=== PATIENT | female | born 1950 | race Caucasian/White ===

== ENCOUNTER 2025-03-30 09:34 | Emergency (ER) | payer BC, MEDICARE, SELFPAY ==
--- NOTE | ~2025-03-30 | US_ITS ---
EXAMINATION: US ABDOMEN LIMITED CLINICAL INFORMATION: Right upper quadrant abdominal pain.. COMPARISON: Correlated to CT dated March 30, 2024. TECHNIQUE: Limited ultrasound right upper quadrant abdomen/gallbladder using grayscale and color Doppler technique. FINDINGS: Gallbladder is fluid-filled. No pericholecystic fluid collection or gallbladder wall thickening. Common bile duct measures 8 mm. No intraluminal abnormality. No gross ascites. US/US abdomen limited IMPRESSION: No cholelithiasis. No choledocholithiasis. Electronically signed by: Mariano Birch MD 03/30/2025 12:03 PM EDT
--- NOTE | ~2025-03-30 | CT_ITS ---
EXAMINATION: CT ABDOMEN AND PELVIS WITHOUT CONTRAST CLINICAL INFORMATION: Flank pain. History of kidney stones. COMPARISON: None available. TECHNIQUE: Multidetector volumetric imaging was performed from the superior aspect of the liver through the pubic symphysis. Sagittal and coronal reformatted images were obtained on the technologist's workstation. This CT examination was performed using dose optimization techniques as appropriate, variously including the following: *Automated exposure control *Adjustment of mA and/or kV according to patient size (this includes techniques or standardized protocols for targeted exams where dose is matched to indication/reason for exam; i.e. extremities or head) *Use of iterative reconstruction technique. DLP: 296 mGy centimeter. FINDINGS: Inadequate evaluation of the intra-abdominal organs and vascular structures due to lack of IV contrast. LUNG BASES: Multifocal patchy pulmonary groundglass, both lower lung lobes lingula and right middle lung lobe. LIVER, GALLBLADDER, AND BILIARY TREE: Liver measures 13 cm. No intrahepatic biliary ductal dilatation. No pericholecystic fluid collection or gallbladder wall thickening. Common bile duct measures 1 cm in maximum diameter and tapers at the junction with the second portion of the duodenum. No intraluminal calcifications. PANCREAS: No peripancreatic fluid collection. No main pancreatic ductal dilatation. SPLEEN: 9 cm. ADRENAL GLANDS: No nodular lesions. KIDNEYS AND URETERS: Multiple, less than 2 mm calcifications throughout the pelvicalyceal systems both kidneys. No hydronephrosis in either kidney. 2 cm exophytic cystic lesion lower pole left kidney. BLADDER: Fluid-filled. GASTROINTESTINAL TRACT: Appendix is retrocecal and normal. Abundant stool. No intestinal obstruction pattern. No pneumatosis intestinalis. No pneumoperitoneum. Trace amount of free fluid in the cul-de-sac. No fluid collections in the peritoneal cavity. ABDOMINAL WALL: No gross umbilical hernia. LYMPH NODES: Nonspecific mildly prominent mesenteric and retroperitoneum. VASCULAR: Calcified plaques throughout the abdominal aorta wall and iliac arteries mesenteric arteries splenic artery and the origin of the main renal arteries. PELVIC VISCERA: Inadequate evaluation. OSSEOUS STRUCTURES: Probable pectus excavatum. Mild to moderate multilevel thoracolumbar spondylosis. Status post intervertebral disc spacer at L5-S1 resulting in arthrodesis. Grade 1 anterolisthesis L3-4 on a degenerative basis. Osteopenia versus osteoporosis. Degenerative changes in the coxofemoral joints and sacroiliac joints. CT/CT abdomen pelvis wo IV con IMPRESSION: Bilateral multifocal pneumonia. Nonobstructing nephrolithiasis. Cystic lesion, left kidney. Prominent common bile duct with questionable stricture in the center of Oddi. Grade 1 anterolisthesis L3-4 on a degenerative basis. Fleischner guidelines were followed. Electronically signed by: Mariano Birch MD 03/30/2025 11:03 AM EDT
--- NOTE | ~2025-03-30 | XR_ITS ---
EXAMINATION: XR CHEST 2 VIEWS HISTORY: pna? COMPARISON: Correlation is made with the images of the lung bases from a CT of the abdomen performed earlier in the day. FINDINGS: PA and lateral views of the chest are submitted. The lungs are hyperinflated, consistent with COPD. The groundglass opacities at the lung bases noted on abdominal CT are not visible on chest x-ray. There is no pleural effusion, pneumothorax, or pulmonary vascular congestion. The heart is normal in size. There is degenerative disc disease of the spine. A fusion plate is seen in the lower cervical spine. There is a left breast prosthesis. XR/XR chest 2V IMPRESSION: COPD. The groundglass opacities at the lung bases noted on abdominal CT are not visible on chest x-ray. Electronically signed by: Blue Parson MD 03/30/2025 11:21 AM EDT
[2025-03-30 09:45] VITALS: BP 164/62; PULSE 72; RESP 15; TEMP 36.8; O2SAT 99; BMI 18.4
[2025-03-30 09:51] VITALS: BP 190/100; PULSE 90; O2SAT 99
--- NOTE | 2025-03-30 10:03 | ED.GENADULT ---
HPI - General Adult General Chief complaint: Abdominal Pain Stated complaint: LLQ PAIN X2 DAYS, H/O KIDNEY STONES & PNA PER EMS Time Seen by Provider: 03/30/25 09:49 Source: patient, EMS, RN notes reviewed and old records reviewed Mode of arrival: EMS History of Present Illness ED Provider: Otilia Liriano PA-C HPI narrative: 74 yo female with PMH kidney stones, mastectomy, c-sections, recent pneumonia finished antibiotics today, presents to the ED complaining of LLQ abdominal pain radiating to left flank x 03:00. Admits pain is constant with associated urinary hesitancy/decreased stream. Admits feels similar to her previous kidney stones. Reports associated fever T-max 101 degrees. Admits to persistent productive cough of yellow phlegm. Denies CP/SOB, hematuria, dysuria, nausea/vomiting, diarrhea Related Data Home Medications ?Medication ?Instructions ?Recorded ?Confirmed albuterol sulfate 90 mcg/actuation 2 puff inhalation Q6H PRN wheezing 03/30/25 03/30/25 aerosol inhaler carisoprodol 350 mg tablet 350 mg PO QID 03/30/25 03/30/25 cholecalciferol (vitamin D3) 50 50 mcg PO DAILY 03/30/25 03/30/25 mcg (2,000 unit) tablet cyanocobalamin (vitamin B-12) 500 500 mcg PO DAILY 03/30/25 03/30/25 mcg tablet docusate sodium 100 mg capsule 100 mg PO BID 03/30/25 03/30/25 fluticasone propionate 50 2 spray intranasal DAILY 03/30/25 03/30/25 mcg/actuation nasal spray,suspension levothyroxine 137 mcg tablet 137 mcg PO DAILY@0630 03/30/25 03/30/25 lidocaine 5 % topical patch 3 patch topical DAILY 03/30/25 03/30/25 lorazepam 0.5 mg tablet 0.5 mg PO DAILY PRN Anxiety 03/30/25 03/30/25 lorazepam 0.5 mg tablet 1.5 mg PO BEDTIME 03/30/25 03/30/25 losartan 100 mg tablet 100 mg PO DAILY 03/30/25 03/30/25 magnesium oxide (Uro-Mag) 84.5 mg PO BEDTIME 03/30/25 03/30/25 omeprazole 20 mg capsule,delayed 20 mg PO BID@0630,1630 03/30/25 03/30/25 release ondansetron 4 mg disintegrating 4 mg PO BID PRN Nausea 03/30/25 03/30/25 tablet oxycodone 10 mg tablet 10 mg PO QID 03/30/25 03/30/25 oxycodone 10 mg tablet 20 mg PO BEDTIME 03/30/25 03/30/25 simethicone 125 mg capsule 125 mg PO TID PRN GI UPSET 03/30/25 03/30/25 Previous Rx's ?Medication ?Instructions ?Recorded azithromycin 250 mg tablet See Rx Instructions PO .COMPLEX #6 03/30/25 tabs Allergies Allergy/AdvReac Type Severity Reaction Status Date / Time adhesive tape Allergy Unknown Verified 03/30/25 13:47 atenolol [From Tenormin] Allergy Unknown Verified 03/30/25 13:47 cefaclor [From Ceclor] Allergy Unknown Verified 03/30/25 13:47 Chocolate Allergy Unknown Verified 03/30/25 13:47 ciprofloxacin [From Cipro] Allergy Unknown Verified 03/30/25 09:50 colchicine Allergy Unknown Verified 03/30/25 13:47 cortisone Allergy Unknown Verified 03/30/25 13:47 dicyclomine Allergy Unknown Verified 03/30/25 13:47 gabapentin Allergy Unknown Verified 03/30/25 09:50 indomethacin Allergy Unknown Verified 03/30/25 13:47 Iodinated Contrast Media Allergy Unknown Verified 03/30/25 13:47 [Contrast Dye] latex Allergy Unknown Verified 03/30/25 13:47 levofloxacin [From Levaquin] Allergy Anaphylaxis Verified 03/30/25 10:05 lisinopril Allergy Unknown Verified 03/30/25 13:47 monosodium glutamate Allergy Unknown Verified 03/30/25 13:47 morphine Allergy Unknown Verified 03/30/25 09:50 NSAIDS (Non-Steroidal Allergy Unknown Verified 03/30/25 13:47 Anti-Inflamma penicillin G Allergy Unknown Verified 03/30/25 09:50 perfume Allergy Unknown Verified 03/30/25 13:47 povidone-iodine Allergy Unknown Verified 03/30/25 13:47 [From Betadine] propranolol Allergy Unknown Verified 03/30/25 13:47 Sulfa (Sulfonamide Allergy Unknown Verified 03/30/25 09:50 Antibiotics) tamsulosin Allergy Unknown Verified 03/30/25 13:47 tetracycline Allergy Unknown Verified 03/30/25 13:47 tramadol Allergy Unknown Verified 03/30/25 13:47 trazodone Allergy Unknown Verified 03/30/25 09:50 triamcinolone Allergy Unknown Verified 03/30/25 13:47 venom-honey bee Allergy Unknown Verified 03/30/25 13:47 fentanyl patch Allergy Unknown Uncoded 03/30/25 13:47 Review of Systems Review of Systems: Yes all other systems are reviewed and are negative Constitutional: Constitutional: Reports as per [facility] Past Medical History Attestation statement: The following information was validated with the patient. Source: old records reviewed Social History Social History Advance Directives: Yes Advance Directives Information Provided: Yes Advance Directives on File: No Physical Exam ED Vital Signs: Vital Signs - 24 hr 03/30/25 09:45 03/30/25 10:22 03/30/25 14:21 Temperature 98.2 F 98.2 F 97.8 F Pulse Rate 72 72 92 Respiratory Rate 15 15 18 Blood Pressure 164/62 H 164/62 H 154/66 H Pulse Oximetry 99 99 97 Oxygen Delivery Method Room Air Room Air Room Air 03/30/25 15:46 Temperature 98.1 F Pulse Rate 90 Respiratory Rate 14 Blood Pressure 146/67 H Pulse Oximetry 95 Oxygen Delivery Method Room Air BMI result Body Mass Index 18.4 Const General: cooperative, healthy appearing and no acute distress Orientation/consciousness: patient oriented x3 Limitations: no limitations HENMT Head: Yes normal to inspection and Yes atraumatic Ears: hearing grossly normal bilaterally General nose exam: Normal external nose present Face and sinus: Yes normal facial exam Eyes General: appearance normal, both eyes and all related structures EOM: EOMs intact bilaterally Neck Neck: Yes normal visual inspection and Yes no meningeal signs Resp Effort & Inspection: normal respiratory effort and no respiratory distress Auscultation: clear to auscultation bilaterally, no crackles, no rales, no rhonchi and no wheezes Cardio Rate: regular rate Heart sounds: S1 normal heart sound present and S2 normal heart sound present GI Inspection: Yes normal to inspection Palpation (GI): Soft to palpation, Tenderness to palpation present (GI) in the LLQ; with no rebound tenderness, no guarding and not rigid General: Yes CVA tenderness on the left Back/Spine/Pelvis Back: CVA tenderness Skin Rashes: no rashes Wounds: no wounds Neuro General: patient oriented x3, tone normal and no meningeal signs Cranial nerves: Yes CN's II-XII intact bilaterally Gait exam (Neuro): Normal gait present Extrem General: Yes normal to inspection Course Course Course Narrative: XR chest 2V IMPRESSION: COPD. The groundglass opacities at the lung bases noted on abdominal CT are not visible on chest x-ray. CT abdomen pelvis wo IV con IMPRESSION: Bilateral multifocal pneumonia. Nonobstructing nephrolithiasis. Cystic lesion, left kidney. Prominent common bile duct with questionable stricture in the center of Oddi. Grade 1 anterolisthesis L3-4 on a degenerative basis. Fleischner guidelines were followed. > on re-evaluation patient reports continued abdominal discomfort. On repeat outpatient abdomen soft with RUQ/RLQ & LLQ ttp >> will obtain US or further eval. > will obtain Blood Cx for PNA > patient will need to be started on additional abx, however will wait for full allergy list. Does not meet sepsis criteria at this time >1339--allergy list obtained, will be entered in the computer. On re-evaluation patient is still with diffuse abdominal pain. Bedside ultrasound performed without significant findings. will discuss case with hospitalist and GI. May need MRCP > discuss case with GI, Dr. Bejarano > at this time patient does not require MRCP, however LFTs become elevated then can be performed. Patient can be discharged home with outpatient follow up. -patient given an enema in the ED due to stool burden seen on CT. States had coffee ground bowel movement. Will obtain occult stool. Brown stool noted on rectal -1615--occult stool negative. Discussed with patient plan for discharge home with GI/PCP follow-up. She is in agreement with plan. > will discharge patient home with [facility] for multifocal pneumonia appreciated on CAT scan and continued productive cough. Results discussed with patient including worrisome signs and symptoms and strict return precautions, and when to return to the emergency department. They verbalized understanding and feel safe for discharge at this time. Medications Administered Discontinued Medications Generic Name Dose Route Start Last Admin Trade Name Freq PRN Reason Stop Dose Admin Fentanyl 25 mcg 03/30/25 11:49 03/30/25 11:56 Fentanyl Citrate/Pf 100 Mcg/2 Ml Vial IVPUSH 03/30/25 11:50 25 mcg ONCE ONE Administration Protocol Fentanyl 25 mcg 03/30/25 13:39 03/30/25 13:53 Fentanyl Citrate/Pf 100 Mcg/2 Ml Vial IVPUSH 03/30/25 13:40 25 mcg ONCE ONE Administration Protocol Sodium Chloride 1,000 mls @ 999 mls/hr 03/30/25 10:30 03/30/25 14:33 Ns IV 03/30/25 11:30 Infused .Q1H1M AIDA Infusion Mineral Oil 133 ml 03/30/25 13:38 03/30/25 14:11 Mineral Oil Enema 133 Ml Enema WA 03/30/25 13:39 Not Given ONCE ONE Mineral Oil 133 ml 03/30/25 14:31 03/30/25 15:02 Mineral Oil Enema 133 Ml Enema [place] 03/30/25 14:32 133 ml ONCE ONE Administration Medical Decision Making Medical Decision Making MDM Narrative: 74 yo female with PMH kidney stones, mastectomy, c-sections, recent pneumonia finished antibiotics today, presents to the ED complaining of LLQ abdominal pain radiating to left flank x 03:00. Admits to persistent productive cough of yellow phlegm. On exam vital signs stable, NAD, nontoxic appearing, appears uncomfortable, abdomen soft with LLQ & left CVA tenderness, no rebound or guarding, lungs CTA. Concern for renal stone vs pyelo vs UTI. Concern for persistent pneumonia vs bronchitis. Diverticulitis and appendicitis on differential. Lower suspicion for acute cholecystitis/lithiasis or pancreatitis at this time. Unlikely ACS/PE Plan: Labs, UA, CT AP, pain management, re-evaluate * of note patient with multiple allergies, all unknown to patient, full list at PCPs office. Will contact PCP* Please refer to course for remaining clinical decision making, interpretation of labs/imaging results, and discussions with consultants and/or family members. Differential Diagnosis Differential Diagnoses: The differential diagnosis associated with the presentation includes Admission/Observation Consideration of admission/observation: Escalation of care including admission/observation considered Lab Data [facility] Lab Attestation statement: I reviewed the patient's lab results. 03/30/25 11:42 03/30/25 11:42 Labs: Lab Results 03/30/25 03/30/25 Range/Units 11:42 16:05 WBC 5.3 (4.8-10.8) X10*3/uL RBC 4.56 (4.20-5.50) X10*6/uL Hgb 14.8 (12.0-16.0) g/dl Hct 42.9 (37.0-47.0) % MCV 94.1 (80.0-98.0) fL MCH 32.5 (27.0-33.0) pg MCHC 34.5 (31.0-35.0) g/dl RDW 11.3 (11.0-16.0) % Plt Count 335 (160-400) X10*3/uL MPV 8.7 L (9.4-12.3) fL Immature Gran % (Auto) 0.4 (0.0-0.4) % Neut % (Auto) 79.5 H (45-73) % Lymph % (Auto) 14.7 L (20-40) % Rains % (Auto) 4.2 (2-11) % Eos % (Auto) 0.6 (0-4) % Baso % (Auto) 0.6 (0-2) % Lymph # (Auto) 0.8 L (1.2-4.9) X10*3/uL Rains # (Auto) 0.2 (0.1-1.2) X10*3/uL Eos # (Auto) 0.0 (0.0-0.4) X10*3/uL Baso # (Auto) 0.0 (0.0-0.2) X10*3/uL Abs Immat Gran (auto) 0.02 (0.00-0.03) X10*3/uL Absolute Neuts (auto) 4.2 (2.0-8.3) x10*3/uL Absolute Nucleated RBC 0.000 (0.0-0.012) X10*3/uL Nucleated RBC % (auto) 0.0 (0.0-0.2) /100WBC Sodium 143 (135-145) mmol/L Potassium 3.8 (3.3-5.1) mmol/L Chloride 106 (96-108) mmol/L Carbon Dioxide 26 (22-29) mmol/L Anion Gap 15 (12-20) BUN 22 H (9-16) mg/dL Creatinine 0.81 (0.5-1.4) mg/dL Estim Creat Clear Calc 49.7 Estimated GFR > 60 Random Glucose 94 (60-115) mg/dL Calcium 9.6 (8.4-10.2) mg/dL Magnesium 2.1 (1.6-2.6) mg/dL Total Bilirubin 0.7 (0.0-1.0) mg/dL Direct Bilirubin 0.2 (0.0-0.5) mg/dL AST 43 H (5-31) U/L ALT 21 (0-31) U/L Total Protein 7.3 (6.5-8.0) g/dL Albumin 4.2 (3.5-5.0) g/dL Lipase 44 (8-78) U/L Urine Color Yellow Urine Appearance Clear Urine pH >= 9.0 (5.0-9.0) Ur Specific [place] 1.015 (1.005-1.025) Urine Protein 30 (1+) H (Neg-Trace) mg/dL Urine Glucose (UA) Negative (Negative) mg/dL Urine Ketones 40 (Negative) mg/dL Urine Blood Negative (Negative) Urine Nitrite Negative (Negative) Ur Leukocyte Esterase Negative (Negative) Urine RBC 0-2 (0-2) /HPF Urine WBC 0-5 (0-5) /HPF Ur Squamous Epith Cells 0-2 (0-2) /HPF Urine Bacteria None Seen (None Seen) Hyaline Casts 0-2 (0-2) /LPF Stool Occult Blood NEGATIVE (NEGATIVE) Influenza Type A (PCR) NEGATIVE (Negative) Influenza Type B (PCR) NEGATIVE (Negative) RSV RNA Qual (PCR) NEGATIVE (Negative) SARS-CoV-2 RNA (RT-PCR) NEGATIVE (Negative) Independent Interpretation I performed an independent interpretation of an: Plain X-Ray and CT Scan Radiology Impression Discussion of test interpretation with radiology: I have reviewed the radiologist's reading. External Record Review External record reviewed: Inpatient record, Office record, Outpatient record, Prior outpatient labs, Prior outpatient radiology, Primary care record and Outside ED record Tests considered The following testing was considered but not selected: As above Prescription Management I considered prescription management with: Pain Medication and Antibiotic Chronic Conditions Patient?s care impacted by: Other Social Determinants Patient?s care significantly limited by Social Determinants of Health including: Other Social Determinant of Health Discharge Plan Discharge Clinical Impression: Abdominal pain, Common bile duct dilatation, Pneumonia Patient Disposition: Home, Self-Care Instructions: Abdominal Pain (ED), Pneumonia (ED) Additional Instructions: Your blood work is reassuring. Your urine shows small evidence of dehydration. Make sure you are staying hydrated at home. Your CAT scan is showing multifocal pneumonia. Due to your continued productive cough azithromycin as an antibiotic please take as prescribed Your common bile duct is also prominent. You need to follow-up outpatient with Gastroenterology. Call to make an appointment If her symptoms persist or worsen, pain becomes constant/unbearable, you have fever, you are unable to eat or drink return to the ED Prescriptions: New azithromycin 250 mg tablet See Rx Instructions .ROUTE .COMPLEX Qty: 6 0RF Rx Instructions: take 500 mg today (day 1), then 250 mg for 4 days (days 2-5) No Action carisoprodol 350 mg tablet 350 mg PO QID levothyroxine 137 mcg tablet 137 mcg PO DAILY@0630 simethicone 125 mg Capsule 125 mg PO TID PRN (Reason: GI UPSET) lorazepam 0.5 mg tablet 0.5 mg PO DAILY PRN (Reason: Anxiety) lorazepam 0.5 mg tablet 1.5 mg PO BEDTIME cyanocobalamin (vitamin B-12) 500 mcg Tablet 500 mcg PO DAILY lidocaine 5 % adhesive patch,medicated 3 patch topical DAILY docusate sodium 100 mg Capsule 100 mg PO BID omeprazole 20 mg capsule,delayed release(DR/EC) 20 mg PO BID@0630,1630 albuterol sulfate 90 mcg/actuation HFA aerosol inhaler 2 puff inhalation Q6H PRN (Reason: wheezing) ondansetron 4 mg tablet,disintegrating 4 mg PO BID PRN (Reason: Nausea) losartan 100 mg tablet 100 mg PO DAILY fluticasone propionate 50 mcg/actuation spray,suspension 2 spray intranasal DAILY oxycodone 10 mg tablet 10 mg PO QID oxycodone 10 mg tablet 20 mg PO BEDTIME Uro-Mag 84.5 mg mag (140 mg) Capsule 84.5 mg PO BEDTIME cholecalciferol (vitamin D3) 50 mcg (2,000 unit) Tablet 50 mcg PO DAILY Referrals: [facility] [place] Gastroenterology Services [Provider Group] - 1 week Sergey Tyson MD [Primary Care Provider] - 3 days Print Language: [place]
[2025-03-30 10:22] VITALS: BP 164/62; PULSE 72; RESP 15; TEMP 36.8; O2SAT 99
[2025-03-30] MEDS: 0.9 % Sodium Chloride 1,000 ML 999 ML IV (11:26)
[2025-03-30 11:48] LABS: MANUAL DIFF FLAG NO
[2025-03-30 11:50] LABS: Basophils Percent Auto 0.6 % (0-2); Eosinophils Percent Auto 0.6 % (0-4); Hematocrit 42.9 % (37.0-47.0); Hemoglobin 14.8 g/dl (12.0-16.0); Imm Gran Abs Auto 0.02 X10*3/uL (0.00-0.03); Imm Gran Pct Auto 0.4 % (0.0-0.4); Lymphocytes Absolute Auto 0.8 X10*3/uL (1.2-4.9); Lymphocytes Percent Auto 14.7 % (20-40); Mean Corpuscular HGB Conc 34.5 g/dl (31.0-35.0); Mean Corpuscular Hemoglobin 32.5 pg (27.0-33.0); Mean Corpuscular Volume 94.1 fL (80.0-98.0); Mean Platelet Volume 8.7 fL (9.4-12.3); Monocytes Absolute Auto 0.2 X10*3/uL (0.1-1.2); Monocytes Percent Auto 4.2 % (2-11); Neutrophils Absolute Auto 4.2 x10*3/uL (2.0-8.3); Neutrophils Percent Auto 79.5 % (45-73); Platelet Count 335 X10*3/uL (160-400); Red Blood Count 4.56 X10*6/uL (4.20-5.50); Red Cell Distribution Width 11.3 % (11.0-16.0); White Blood Count 5.3 X10*3/uL (4.8-10.8)
[2025-03-30 11:54] LABS: Appearance Urine Clear; Color Urine Yellow; Glucose Urine UA Negative (Negative); Leukocyte Esterase Urine Negative (Negative); Nitrite Urine Negative (Negative); PH >= 9.0 (5.0-9.0); Specific Gravity - Urine 1.015 (1.005-1.025); UMIC TRIGGER UACC YES; Urine Blood Negative (Negative); Urine Ketones 40 mg/dL (Negative); Urine Protein 30 (1+) mg/dL (Neg-Trace)
[2025-03-30] MEDS: fentaNYL citrate/PF 100 MCG/2 ML VIAL 25 MCG IVPUSH ×2 (11:56→13:53)
[2025-03-30 12:01] LABS: Bacteria Urine None Seen (None Seen); Hyaline Casts Urine 0-2 /LPF (0-2); RBC Urine 0-2 /HPF (0-2); Squamous Epithelial Cell Urine 0-2 /HPF (0-2); WBC Urine 0-5 /HPF (0-5)
--- NOTE | 2025-03-30 12:13 | PC.NURSE ---
patient reports having extensive allergy list, called dr grace patient's primary care. awaiting fax with allergy list.
[2025-03-30 12:22] LABS: Alanine Aminotransferase 21 U/L (0-31); Albumin Level 4.2 g/dL (3.5-5.0); Anion Gap 15 (12-20); Aspartate Amino Transferase 43 U/L (5-31); Bilirubin Direct 0.2 mg/dL (0.0-0.5); Bilirubin Total 0.7 mg/dL (0.0-1.0); Blood Urea Nitrogen 22 mg/dL (9-16); Calcium 9.6 mg/dL (8.4-10.2); Carbon Dioxide 26 mmol/L (22-29); Chloride 106 mmol/L (96-108); Creatinine Clr Calc Pharmacy 49.7; Estimated Glomerular Filt Rate > 60; Glucose Random 94 mg/dL (60-115); Lipase 44 U/L (8-78); Magnesium 2.1 mg/dL (1.6-2.6); Potassium 3.8 mmol/L (3.3-5.1); Sodium 143 mmol/L (135-145); Total Protein 7.3 g/dL (6.5-8.0)
[2025-03-30 12:26] LABS: Influenza A PCR NEGATIVE (Negative); Influenza B PCR NEGATIVE (Negative); Resp Syncy Virus RNA Qual PCR NEGATIVE (Negative); SARS COV2 PCR INHOUSE NEGATIVE (Negative)
--- OUTSIDE RECORDS SUMMARY | 2025-03-30 13:00 | XMS_ITS | Encounter Summary ---
Author Organization [facility] Address [address] [place] [address] [address] [place] [address] Phone Care Team Providers Care Detail Manager Name Role Phone Karlos Lyons MD Primary Care Provider Karlos Lyons MD Unavailable [phone] Omar Rocha MD Unavailable [phone] Sagar Leung MD Unavailable Karlos Lyons MD Primary Care Provider [phone] Yefri Hilliard MD Unavailable [phone] Karlos Murry MD Unavailable [phone] Sergey Tyson MD Primary Care Provider Apple Talavera MD Unavailable [phone] Sergey Tyson MD Unavailable Mena Mcwilliams RN Unavailable [phone] Reason for Referral * MRI/CAT Scan - Closed Specialty Diagnoses / Procedures Referred By Jessica balbuena Referred To Contact Radiology Diagnoses Lumbar radiculopathy 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 Procedures MRI Lumbar Spine Omar Rocha MD [address] [place] [address] Email: [email or web address] Referral ID Status Reason Start Date Expiration Date Visits Re quested Visits Authorized [id number] Closed 10/07/2019 10/06/2020 1 1 Encounter Details Date Type Department Care Team (Latest Contact Info) Description 10/07/2019 Ancillary Orders Virtual Department [address] [place] [address] Omar Rocha MD [address] [place] [address] [email or web address] Lumbar radiculopathy; 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 Social History Tobacco Use Types Packs/Day Years Used Date Smoking Tobacco: Former Cigarettes Smokeless Tobacco: Never Comments:quit 1971 Alcohol Use Standard Drinks/Week Comments No 0 (1 standard drink = 0.6 oz pur e alcohol) Sex and Gender Information Value Date Recorded Sex Assigned at Female 05/05/2021 9:10 PM EDT Gender Identity Female 03/19/2021 10:12 AM EDT Sexual Orientation Straight 05/05/2021 9: 10 PM EDT documented as of this encounter Plan of Treatment Upcoming Encounters Date Type Department Care Team (Late st Contact Info) Description 03/18/2024 Procedure Pass [address] [address] 04/13/2025 9:00 AM EDT Appointment [facility] [place] Internal Medicine [address] [place] [address] Sergey Tyson MD [address] [place] [address] 04/21/2025 3:00 PM EDT Appointment [address] [address] Apple Talavera MD [address] [place] [email or web address] 04/27/2025 8:30 AM EDT Office Visit [facility] [place] [address] [place] [address] Apple Talavera MD [address] [place] [address] [email or web address] documented as of this encounter Results * MRI LUMBAR SPINE (BONE) WITHOUT CONTRAST (10/10/2019 1:37 PM EST) Anatomical Region Laterality Modality L-spine Magnetic Resonan ce 10/10/2019 8:22 PM EST Impressions 10/10/2019 8:36 PM EST Multilevel degenerative changes as described above, progressed from 2009 study. Moderate canal stenosis at L3-L4. Moderate neuroforaminal stenosis on the left at L4-L5 associated with mild compression of the left L4 exiting nerve root. POS - [id number] Narrative 10/10/2019 8:36 PM EST EXAM: ?? 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 ??Magnetic resonance imaging of the lumbar spine was performed WITHOUT injected contrast using standard department protocols. Sagittal T1, T2 and STIR, axial T1 and T2 sequences were obtained. FINDINGS: Gradient artifacts from the fusion hardware at L5-S1 limits local evaluation. ALIGNMENT: Anatomic alignment is maintained. Minimal grade 1 anterolisthesis of L3 on L4. VERTEBRAL BODIES: ??Vertebral body heights are maintained. ??Bone marrow signal pattern is within normal limits. ?? INTERVERTEBRAL DISCS: Mild desiccation changes and minimal loss of height of the L3-L4 and L4-L5 discs. SPINAL CORD/CONUS: ??Included spinal cord has normal caliber and signal characteristics. The conus terminates normally at L1 level. Level by level analysis yields the following: L1-2: Minimal bulging disc. No significant canal or neuroforaminal stenosis. L2-3: Mild bulging disc and hypertrophy of posterior elements contributes to mild/moderate canal stenosis and minimal bilateral neuroforaminal stenosis. L3-4: Combination of anterolisthesis of L3 on L4, bulging disc and hypertrophy of posterior elements contributes to moderate canal stenosis. No significant neuroforaminal stenosis. L4-5: Combination of bulging disc, left central disc protrusion and hypertrophy of posterior elements contributes to mild/moderate canal stenosis and moderate left neuroforaminal stenosis with ??mild compression of the left L4 exiting nerve root. No significant right neural foraminal stenosis. L5-S1: No significant canal or neuroforaminal stenosis identified Multilevel degenerative changes have progressed from 2009 study. Small perineural cysts at multiple levels. OTHERS:Visualized portions of the retroperitoneal structures shows partially evaluated left renal lesions that appear similar in size from 2009. Posterior paraspinal soft tissues are unremarkable. Procedure Note Jade Mckeon MD - 10/10/2019 EXAM: MRI LUMBAR SPINE (BONE) WITHOUT CONTRAST COMPARISON: July 06, 2009 HISTORY: Lumbar radiculopathy Displacement of intervertebral disc oflumbar region TECHNIQUE: Exam performed on a 1.5 Jo high-field MRI scanner. Magneticresonance imaging of the lumbar spine was performed WITHOUT injectedcontrast using standard department protocols. Sagittal T1, T2 and STIR,axial T1 and T2 sequences were obtained. FINDINGS: Gradient artifacts from the fusion hardware at L5-S1 limits localevaluation. ALIGNMENT: Anatomic alignment is maintained. Minimal grade 1anterolisthesis of L3 on L4. VERTEBRAL BODIES: Vertebral body heights are maintained. Bone marrowsignal pattern is within normal limits. INTERVERTEBRAL DISCS: Mild desiccation changes and minimal loss of heightof the L3-L4 and L4-L5 discs. SPINAL CORD/CONUS: Included spinal cord has normal caliber and signalcharacteristics. The conus terminates normally at L1 level. Level by level analysis yields the following: L1-2: Minimal bulging disc. No significant canal or neuroforaminalstenosis. L2-3: Mild bulging disc and hypertrophy of posterior elements contributesto mild/moderate canal stenosis and minimal bilateral neuroforaminalstenosis. L3-4: Combination of anterolisthesis of L3 on L4, bulging disc andhypertrophy of posterior elements contributes to moderate canal stenosis.No significant neuroforaminal stenosis. L4-5: Combination of bulging disc, left central disc protrusion andhypertrophy of posterior elements contributes to mild/moderate canalstenosis and moderate left neuroforaminal stenosis with mild compressionof the left L4 exiting nerve root. No significant right neural foraminalstenosis. L5-S1: No significant canal or neuroforaminal stenosis identified Multilevel degenerative changes have progressed from 2009 study. Smallperineural cysts at multiple levels. OTHERS:Visualized portions of the retroperitoneal structures showspartially evaluated left renal lesions that appear similar in size [id number]. Posterior paraspinal soft tissues are unremarkable. IMPRESSION: Multilevel degenerative changes as described above, progressed from 2009study. Moderate canal stenosis at L3-L4. Moderate neuroforaminal stenosison the left at L4-L5 associated with mild compression of the left C5mgcdohs nerve root. 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 documented in this encounter Additional Health Concerns Infection Onset Date Last Indicated Resolved Time CoV-Risk 05/07/2022 05/07/2022 05/18/2022 1:24 AM EDT Assessment Noted Time PHQ-2 Depression Total Score: 0 10/20/20 18 10:00 AM EST documented as of this encounter Care Teams Detail Manager Relationship Specialty Start Date End Date Karlos Lyons MD [address] [address] [email or web address] PCP - General Internal Medicine 07/14/14 05/07/21 Karlos Lyons MD [address] [address] [email or web address] PCP - General Internal Medicine 05/08/21 05/09/22 Sergey Tyson MD [address] [place] [address] [email or web address] PCP - General Internal Medicine 05/10/22 Karlos Lyons MD [address] [place] [address] [email or web address] Insurance Assigned Provider 02/23/17 03/02/23 Omar Rocha MD [address] [place] [address] [email or web address] Physical Medicine and Rehabilitation 05/08/21 Sagar Leung MD [address] [place] [address] [email or web address] Obstetrics and Gynecology 05/08/21 Yefri Hilliard MD [address] [place] [address] Endocrinology 05/08/21 Karlos Murry MD [address] [place] [address] [email or web address] Gastroenterology 02/27/22 Apple Talavera MD [address] [place] [address] [email or web address] Primary Oncologist Medical Oncology 02/19/23 Sregey Tyson MD [address] [place] [address] [email or web address] Insurance Assigned Provider 02/29/24 Mena Mcwilliams RN [address] [place] [address] [email or web address] [employer] Acid Regenerator 11/13/23 12/11/23 documented as of this encounter Additional Source Comments The information contained in this document represents components of the legal health record. It is not the complete legal health record.[facility]
--- OUTSIDE RECORDS SUMMARY | 2025-03-30 13:00 | XMS_ITS | Encounter Summary ---
Author Organization [facility] Address [facility] [employer] [facility] [address] [place] [address] Phone Care Team Providers Care Senior Data Scientist Name Role Phone Karlos Lyons MD Unavailable Omar Rocha MD Unavailable Sagar Leung MD Unavailable Karlos Lyons MD Primary Care Provider [phone] Yefri Hilliard MD Unavailable [phone] Karlos Murry MD Unavailable [phone] Sergey Tyson MD Primary Care Provider Apple Talavera MD Unavailable [phone] Sergey Tyson MD Unavailable Mena Mcwilliams RN Unavailable [phone] Encounter Details Date Type Department Care Team (Late st Contact Info) Description 01/23/2022 Procedure Pass [facility] Admitting Dept Virtual Department [address] [place] [address] Social History Tobacco Use Types Packs/Day Years Used Date Smoking Tobacco: Former Cigarettes 1.5 7 1 964 - 1970 Smokeless Tobacco: Never Comments:quit 1970 Alcohol Use Standard Drinks/Week Comments Never 0 (1 standard drink = 0.6 oz pur e alcohol) Sex and Gender Information Value Date Recorded Sex Assigned at Female 05/05/2021 9:10 PM EDT Gender Identity Female 03/19/2021 10:12 AM EDT Sexual Orientation Straight 05/05/2021 9: 10 PM EDT documented as of this encounter Plan of Treatment Upcoming Encounters Date Type Department Care Team (Late st Contact Info) Description 03/18/2024 Procedure Pass [address] [address] 04/13/2025 9:00 AM EDT Appointment [facility] Internal Medicine [address] [place] [address] Sergey Tyson MD [address] [place] [address] 04/21/2025 3:00 PM EDT Appointment [address] [address] Apple Talavera MD [address] [place] [address] 04/27/2025 8:30 AM EDT Office Visit [facility] at [address] [address] Apple Talavera MD [address] [place] [email or web address] documented as of this encounter Visit Diagnoses Not on filedocumented in this encounter Additional Health Concerns Infection Onset Date Last Indicated Resolved Time CoV-Risk 05/07/2022 05/07/2022 05/18/2022 1:24 AM EDT Assessment Noted Time PHQ-2 Depression Total Score: 0 05/05/20 21 9:23 PM EDT documented as of this encounter Care Teams Senior Data Scientist Relationship Specialty Start Date End Date Karlos Lyons MD [address] [address] [email or web address] PCP - General Internal Medicine 05/08/21 05/09/22 Sergey Tyson MD [address] [place] [address] [email or web address] PCP - General Internal Medicine 05/10/22 Karlos Lyons MD [address] [address] [email or web address] Insurance Assigned Provider 02/23/17 03/02/23 Omar Rocha MD [address] [place] [address] [email or web address] Physical Medicine and Rehabilitation 05/08/21 Sagar Leung MD [address] [place] [address] [email or web address] Obstetrics and Gynecology 05/08/21 Yefri Hilliard MD [address] [place] [address] Endocrinology 05/08/21 Karlos Murry MD [address] [place] [address] [email or web address] Gastroenterology 02/27/22 Apple Talavera MD [address] [place] [address] [email or web address] Primary Oncologist Medical Oncology 02/19/23 Sergey Tyson MD [address] [place] [address] [email or web address] Insurance Assigned Provider 02/29/24 Mena Mcwilliams, RN [address] [place] [address] [email or web address] i[employer] Brass Polisher 11/13/23 12/11/23 documented as of this encounter Additional Source Comments The information contained in this document represents components of the legal health record. It is not the complete legal health record.[facility]
--- OUTSIDE RECORDS SUMMARY | 2025-03-30 13:00 | XMS_ITS | Encounter Summary ---
Author Organization [facility] Address [facility] [employer] [facility] [address] [place] [address] Phone Care Team Providers Care Mechanical Designer Name Role Phone Omar Rocha MD Unavailable Sagar Leung MD Unavailable Yefri Hilliard MD Unavailable Karlos Murry MD Unavailable [phone] Sergey Tyson MD Primary Care Provider [phone] Apple Talavera MD Unavailable [phone] Sergey Tyson MD Unavailable Encounter Details Date Type Department Care Team (Late st Contact Info) Description 03/30/2025 Orders Only [facility] Internal Medicine [address] [place] [address] Provider, MD Avelino [address] [place] [address] Social History Tobacco Use Types Packs/Day Years Used Date Smoking Tobacco: Former Cigarettes 1.5 7 1 4 - 1970 Smokeless Tobacco: Never Comments:quit 1970 Alcohol Use Standard Drinks/Week Comments Never 0 (1 standard drink = 0.6 oz pur e alcohol) Child or Family Care Answer Date Record ed Do you have problems with on e of the following making it difficult for you to work, study, or receive health care? No 01/27/2023 Education Answer Date Recorded Are you interested in more education? Not on usama e 02/02/2025 Are you concerned about learning? Not on file 02/02/2025 No 02/02/2025 No 02/02/2025 Food Answer Date Recorded Within the past 6 months we worried whether our food would run out before we got money to buy more. Sometimes True 023 Within the past 6 months the food we bought just didn't last and we didn't have enough money to get more. Sometimes True 03/2023 Residential Stability Answer Date Recor ded What is your housing situation today? I have yun sparks 01/27/2023 How many times have you move d in the past 12 months? Zero (I did not move) 01/27/2023 Paying for Meds Answer Date Recorded Do you have trouble paying for medicines? No 01/27/2023 Paying Utility Bills Answer Date Record ed Do you have trouble paying your heating or elect ricity bill? Yes 01/27/2023 Transportation Answer Date Recorded Has the lack of transportati on kept you from medical appointments or from getting medications? No 01/27/2023 Unemployment Answer Date Recorded Are you currently unemployed or working on a part-time or temporary basis, and looking for work? No 01/27/2023 Digital Access Answer Date Recorded No 04/16/2023 No 04/16/2023 Reliable internet access at home? Not on file 04/16/2023 Device with a working camera? Not on file Intimate Partner Violence Answer Date R ecorded Denied Basic Needs Not on file 04/08/2024 In the past 12 months have y ou been in a relationship with a person who hurts, threatens, or tries to control you? No 04/08/2024 Worried food would run out Not on file 04/08 In the past 12 months have y ou been in a relationship with a person who hurts, threatens, or tries to control you? No 04/08/2024 Sex and Gender Information Value Date Recorded Sex Assigned at Female 05/05/2021 9:10 PM EDT Gender Identity Female 03/19/2021 10:12 AM EDT Sexual Orientation Straight 05/05/2021 9: 10 PM EDT documented as of this encounter Plan of Treatment Upcoming Encounters Date Type Department Care Team (Late st Contact Info) Description 03/18/2024 Procedure Pass [address] [address] 04/13/2025 9:00 AM EDT Appointment [facility] Internal Medicine [address] [place] [address] Sergey Tyson MD [address] [place] [address] 04/21/2025 3:00 PM EDT Appointment [address] [address] Apple Talavera MD [address] [place] [address] 04/27/2025 8:30 AM EDT Office Visit [facility] at [address] [address] Apple Talavera MD [address] [place] [address] documented as of this encounter Procedures Procedure Name Priority Date/Time Associated Diagnosis Comments OUTSIDE US ABDOMEN REPORT ONLY Routine 03/30/2025 12:37 PM EDT OUTSIDE XR??CHEST REPORT ONLY Routine 03/30/2025 11:37 AM EDT documented in this encounter Results * Outside US Abdomen Report Only (03/30/2025 12:37 PM EDT) Historical Provider MD BONDS US ABDOMEN * Outside XR??Chest Report Only (03/30/2025 11:37 AM EDT) Historical Provider MD BONDS XR CHEST documented in this encounter Visit Diagnoses Not on filedocumented in this encounter Additional Health Concerns Assessment Noted Time PHQ-9 Depression Total Score: 3 09/11/20 24 9:24 AM EDT PHQ-2 Depression Total Score: 1 09/11/20 24 9:24 AM EDT documented as of this encounter Care Teams Mechanical Designer Relationship Specialty Start Date End Date Sergey Tyson MD [address] [place] [address] [email or web address] PCP - General Internal Medicine 05/10/22 Omar Rocha MD [email or web address] Physical Medicine [email or web address] Rehabilitation 05/08/21 Sagar Leung MD [address] [place] [address], [address] [address] [email or web address] Obstetrics and Gynecology 05/08/21 Yefri Hilliard MD [address] [place] [address] Endocrinology 05/08/21 Karlos Murry MD [address] [place] [address] Gastroenterology 02/27/22 Apple Talavera MD [address] [place] [address] Primary Oncologist Medical Oncology 02/19/23 Sergey Tyson MD [address] [place] [address] Insurance Assigned Provider 02/29/24 documented as of this encounter Additional Source Comments The information contained in this document represents components of the legal health record. It is not the complete legal health record.[facility]
--- OUTSIDE RECORDS SUMMARY | 2025-03-30 13:00 | XMS_ITS | Encounter Summary ---
Author Organization [facility] Address [address] [place] [address] [address] [place] [address] Phone Care Team Providers Care Results Engineer Name Role Phone Karlos Lyons MD Primary Care Provider Karlos Lyons MD Unavailable [phone] Omar Rocha MD Unavailable [phone] Sagar Leung MD Unavailable Karlos Lyons MD Primary Care Provider [phone] Yefri Hilliard MD Unavailable [phone] Karlos Murry MD Unavailable [phone] Sergey Tyson MD Primary Care Provider [phone] Apple Talavera MD Unavailable [phone] Sergey Tyson MD Unavailable Mena Mcwilliams RN Unavailable [phone] Encounter Details Date Type Department Care Team (Latest Contact Info) Description 01/27/2018 Prep for Procedure [facility] [place] [address] [place] [phone] Apple Talavera MD [address] [place] [address] Malignant neoplasm of overlapping sites of left breast in female, estrogen receptor positive Social History Tobacco Use Types Packs/Day Years Used Date Smoking Tobacco: Former Cigarettes Comments:Quit smokin11/25 Sex and Gender Information Value Date Recorded Sex Assigned at Female 05/05/2021 9:10 PM EDT Gender Identity Female 03/19/2021 10:12 AM EDT Sexual Orientation Straight 05/05/2021 9: 10 PM EDT documented as of this encounter Plan of Treatment Upcoming Encounters Date Type Department Care Team (Late st Contact Info) Description 03/18/2024 Procedure Pass [address] [address] 04/13/2025 9:00 AM EDT Appointment [facility] Internal Medicine [address] [place] [address] Sergey Tyson MD [address] [place] [address] [email or web address] 04/21/2025 3:00 PM EDT Appointment [address] [address] Apple Talavera MD [address] [place] [address] 04/27/2025 8:30 AM EDT Office Visit [facility] at [address] [address] Apple Talavera MD [address] [place] [address] documented as of this encounter Visit Diagnoses Diagnosis Malignant neoplasm of overlapping sites of left breast in female, estrogen receptor positive documented in this encounter Additional Health Concerns Infection Onset Date Last Indicated Resolved Time CoV-Risk 05/07/2022 05/07/2022 05/18/2022 1:24 AM EDT documented as of this encounter Care Teams Results Engineer Relationship Specialty Start Date End Date Karlos Lyons MD [address] [address] [email or web address] PCP - General Internal Medicine 07/14/14 05/07/21 Karlos Lyons MD [address] [place] [address] [email or web address] PCP - General Internal Medicine 05/08/21 05/09/22 Sergey Tyson MD [address] [place] [address] [email or web address] PCP - General Internal Medicine 05/10/22 Karlos Lyons MD [address] [place] [address] [email or web address] Insurance Assigned Provider 02/23/17 03/02/23 Omar Rocha MD [address] [place] [address] [email or web address] Physical Medicine and Rehabilitation 05/08/21 Sagar Leung MD [address] [facility], [address] [place] [address] [email or web address] Obstetrics and Gynecology 05/08/21 Yefri Hilliard MD [address] [place] [address] Endocrinology 05/08/21 Karlos Murry MD [address] [place] [address] [email or web address] Gastroenterology 02/27/22 Apple Talavera MD [address] [place] [address] [email or web address] Primary Oncologist Medical Oncology 02/19/23 Sergey Tyson MD [address] [place] [address] [email or web address] Insurance Assigned Provider 02/29/24 Mena Mcwilliams, R[address] [place] [address] [email or web address] iCMP Celery Cutter 11/13/23 12/11/23 documented as of this encounter Additional Source Comments The information contained in this document represents components of the legal health record. It is not the complete legal health record.[facility]
--- OUTSIDE RECORDS SUMMARY | 2025-03-30 13:00 | XMS_ITS | Encounter Summary ---
Author Organization [facility] Address [facility] [employer] [facility] [address] [place] [address] Phone Care Team Providers Care Account Services Associate Name Role Phone Omar Rocha MD Unavailable [phone] Sagar Leung MD Unavailable Yefri Hilliard MD Unavailable Karlos Murry MD Unavailable [phone] Sergey Tyson MD Primary Care Provider [phone] Apple Talavera MD Unavailable [phone] Sergey Tyson MD Unavailable Encounter Details Date Type Department Care Team (Latest Contact Info) Description 12/27/2023 Transcribe Orders Virtual Department [address] [place] [address] Karlos Murry MD [address] [place], [place] [phone] [email or web address] Weight loss (Primary Dx) Social History Tobacco Use Types Packs/Day Years [...] Answer Date Recorded Are you interested in help w ith more adult education (for example, completing high school, GED, job training, learning the Ivorian language, technical skills, or developing parenting skills)? No 01/27/2023 Food Answer Date Recorded Within the past [...] your housing situation today? I have yun sing 01/27/2023 How many times have you move [...] with a working camera? Not on file Sex and Gender Information Value Date Recorded Sex Assigned at Female 05/05/2021 9:10 PM EDT Gender Identity Female 03/19/2021 10:12 AM EDT Sexual Orientation Straight 05/05/2021 9: 10 PM EDT documented as of this encounter Plan of Treatment Upcoming Encounters Date Type Department Care Team (Late st Contact Info) Description 03/18/2024 Procedure Pass [address] [address] 04/13/2025 9:00 AM EDT Appointment [facility] Internal Medicine [address] [place] [address] Sergey Tyson MD [address] [place] [address] 04/21/2025 3:00 PM EDT Appointment [facility]- [address] [address] Apple Talavera MD [address] [place] [address] 04/27/2025 8:30 AM EDT Office Visit [facility] at [address] [address] Apple Talavera MD [address] [place] [address] documented as of this encounter Visit Diagnoses Diagnosis Weight loss- Primary Loss of weight documented in this encounter Additional Health Concerns Assessment Noted Time PHQ-2 Depression Total Score: 0 01/28/20 23 6:26 PM EST documented as of this encounter Care Teams Account Services Associate Relationship Specialty Start Date End Date Sergey Tyson MD [address] [place] [address] PCP - General Internal Medicine 05/10/22 Omar Rocha MD [email or web address] Physical Medicine and Rehabilitation 05/08/21 Sagar Leung MD 22 [facility], [address] [place] [address] [email or web address] Obstetrics and Gynecology 05/08/21 Yefri Hilliard MD [address] [place] [address] Endocrinology 05/08/21 Karlos Murry MD [address] [place] [address] [email or web address] Gastroenterology 02/27/22 Apple Talavera MD [address] [place] [address] [email or web address] Primary Oncologist Medical Oncology 02/19/23 Sergey Tyson MD [address] [place] [address] [email or web address] Insurance Assigned Provider 02/29/24 documented as of this encounter Additional Source Comments The information contained in this document represents components of the legal health record. It is not the complete legal health record.[facility]
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
--- OUTSIDE RECORDS SUMMARY | 2025-03-30 13:00 | XMS_ITS | Encounter Summary ---
Author Organization [facility] Address [facility] [employer] [facility] [address] [place] [address] Phone Care Team Providers Care Junior Staff Accountant Name Role Phone Omar Rocha MD Unavailable Sagar Leung MD Unavailable Yefri Hilliard MD Unavailable Karlos Murry MD Unavailable Sergey Tyson MD Primary Care Provider Apple Talavera MD Unavailable [phone] Sergey Tyson MD Unavailable Encounter Details Date Type Department Care Team (Latest Contact Info) Description 12/23/2024 Transcribe Orders Virtual Department [address] [place] [address] Omar Rocha MD [address] [place] [address] [email or web address] Left hip pain (Primary Dx) Social History Tobacco Use Types [...] high school, GED, job training, learning the Mauritanian language, technical skills, or developing parenting skills)? [...] st Contact Info) Description 03/18/[address] [address] 04/13/2025 9:00 AM EDT Appointment [facility] Internal Medicine [address] [place] [address] Sergey Tyson MD [address] [place] [address] 04/21/2025 3:00 PM EDT Appointment [address] [address] Apple Talavera MD [address] [place] [email or web address] 04/27/2025 8:30 AM EDT Office Visit [facility] at [address] [address] Apple Talavera MD [address] [place] [address] documented as of this encounter Results * XR HIP 2 VW LEFT PLUS PELVIS (12/28/2024 11:30 AM EST) Anatomical Region Laterality Modality Hip, Pelvis Computed Radiogr aphy 12/28/2024 1:52 PM EST Impressions 12/28/2024 1:53 PM EST Mild to moderate bilateral hip osteoarthritis with mild osteophytic remodeling and mild to moderate joint space narrowing particularly along the superolateral weightbearing aspects. Indicated views of the left hip demonstrate no evidence of acute fracture or dislocation. Mild degenerative remodeling of the greater trochanters and mild enthesopathy throughout the pelvis. Partial imaging of hardware overlying the lumbar sacral spine. Narrative 12/28/2024 1:53 PM EST XR HIP 2 VW LEFT PLUS PELVIS Referring clinician's provided indication for this examination in Epic: Outside Radiology Order; Pain in left hip COMPARISON: CT ABDOMEN/PELVIS WITHOUT CONTRAST Procedure Note Jorge Holly MD - 12/28/2024 XR HIP 2 VW LEFT PLUS PELVIS Referring clinician's provided indication for this examination in Epic:Outside Radiology Order; Pain in left hip COMPARISON: CT ABDOMEN/PELVIS WITHOUT CONTRAST IMPRESSION: Mild to moderate bilateral hip osteoarthritis with mild osteophyticremodeling and mild to moderate joint space narrowing particularly alongthe superolateral weightbearing aspects. Indicated views of the left hipdemonstrate no evidence of acute fracture or dislocation. Milddegenerative remodeling of the greater trochanters and mild enthesopathythroughout the pelvis. Partial imaging of hardware overlying the lumbarsacral spine. Omar Rocha MD IMG XR PELVIS documented in this encounter Visit Diagnoses Diagnosis Left hip pain- Primary Pain in joint, pelvic region and thigh Left hip pain Pain in joint, pelvic region and thigh documented in this encounter Additional Health Concerns Assessment Noted Time PHQ-9 Depression Total Score: 3 09/11/20 24 9:24 AM EDT PHQ-2 Depression Total Score: 1 09/11/20 24 9:24 AM EDT documented as of this encounter Care Teams Junior Staff Accountant Relationship Specialty Start Date End Date Sergey Tyson MD [address] [place] [address] PCP - General Internal Medicine 05/10/22 Omar Rocha MD [email or web address] Physical Medicine and Rehabilitation 05/08/21 Sagar Leung MD 22 [facility] [address] [place] [address] Obstetrics and Gynecology 05/08/21 Yefri Hilliard MD [address] [place] [address] Endocrinology 05/08/21 Karlos Murry MD [address] [place] [address] [email or web address] Gastroenterology 02/27/22 Apple Talavera MD [address] [place] [address] Primary Oncologist Medical Oncology 02/19/23 Sergey Tyson MD [address] [place] [address] [email or web address] Insurance Assigned Provider 02/29/24 documented as of this encounter Additional Source Comments The information contained in this document represents components of the legal health record. It is not the complete legal health record.[facility]
--- OUTSIDE RECORDS SUMMARY | 2025-03-30 13:00 | XMS_ITS | Encounter Summary ---
Author Organization Located Within [facility] Address [facility] [employer] [facility] [address] [place] [address] Phone Care Team Providers Care Balloon Artist Name Role Phone Karlos Lyons MD Unavailable Omar Rocha MD Unavailable [phone] Sagar Leung MD Unavailable Yefri Hilliard MD Unavailable Karlos Murry MD Unavailable [phone] Sergey Tyson MD Primary Care Provider Apple Talavera MD Unavailable [phone] Sergey Tyson MD Unavailable Mena Mcwilliams RN Unavailable [phone] Encounter Details Date Type Department Care Team (Late st Contact Info) Description 09/13/2022 Procedure Pass [facility] Endoscopy Admitting Dept Virtual Department [address] [place], [place] [id number] Social History Tobacco Use Types Packs/Day Years [...] work, study, or receive health care? No 05/05/2022 Education Answer Date Recorded Are you interested in help w ith more adult education (for example, completing high school, GED, job training, learning the [place] language, technical skills, or developing parenting skills)? No 05/05/2022 Are you concerned about learning? Not on file 05/05/2022 Not on file 05/05/2022 Not on file 05/05/2022 Food Answer Date Recorded Within the past 6 months we worried whether our food would run out before we got money to buy more. Sometimes True 022 Within the past 6 months the food we bought just didn't last and we didn't have enough money to get more. Sometimes True 04/25 Paying for Meds Answer Date Recorded Do you have trouble paying for medicines? No 05/05/2022 Paying Utility Bills Answer Date Record ed Do you have trouble paying your heating or elect ricity bill? Yes 05/05/2022 Transportation Answer Date Recorded Has the lack of transportati on kept you from medical appointments or from getting medications? No 05/05/2022 Sex and Gender Information Value Date Recorded Sex Assigned at Female 05/05/2021 9:10 PM EDT Gender Identity Female 03/19/2021 10:12 AM EDT Sexual Orientation Straight 05/05/2021 9: 10 PM EDT documented as of this encounter Plan of Treatment Upcoming Encounters Date Type Department Care Team (Late st Contact Info) Description 03/18/2024 Procedure Pass [address] [address] 04/13/2025 9:00 AM EDT Appointment [facility] [place] Internal Medicine [address] [place] [address] Sergey Tyson MD 40 [place] [address] 04/21/2025 3:00 PM EDT Appointment [place] [address] [place] [address] Apple Talavera MD [address] [place] [address] [email or web address] 04/27/2025 8:30 AM EDT Office Visit [facility] at [address] [address] Apple Talavera MD [address] [place] [address] [email or web address] documented as of this encounter Visit Diagnoses Not on filedocumented in this encounter Additional Health Concerns Assessment Noted Time PHQ-2 Depression Total Score: 0 09/08/20 22 9:02 AM EDT documented as of this encounter Care Teams Balloon Artist Relationship Specialty Start Date End Date Sergey Tyson MD [address] [place] [address] [email or web address] PCP - General Internal Medicine 05/10/22 Karlos Lyons MD [address] [place] [address] [email or web address] Insurance Assigned Provider 02/23/17 03/02/23 Omar Rocha MD [address] [place] [address] [email or web address] Physical Medicine and Rehabilitation 05/08/21 Sagar Leung MD 22 [facility], [address] [place] [address] [email or web address] Obstetrics and Gynecology 05/08/21 Yefri Hilliard MD 55 [place] [address] Endocrinology 05/08/21 Karlos Murry MD [address] [place] [address] [email or web address] Gastroenterology 02/27/22 Apple Talavera MD [address] [place] [address] [email or web address] Primary Oncologist Medical Oncology 02/19/23 Sergey Tyson MD [address] [place] [address] [email or web address] Insurance Assigned Provider 02/29/24 Mena Mcwilliams, RN [address] [place] [address] [email or web address] [employer] Press Operator Heavy Duty 11/13/23 12/11/23 documented as of this encounter Additional Source Comments The information contained in this document represents components of the legal health record. It is not the complete legal health record.[facility]
--- OUTSIDE RECORDS SUMMARY | 2025-03-30 13:00 | XMS_ITS | Encounter Summary ---
Author Organization [facility] Address [facility] [place] [address] [place] [address] Phone Care Team Providers Care Rotating Equipment Specialist Name Role Phone Karlos Lyons MD Unavailable Omar Rocha MD Unavailable [phone] Sagar Leung MD Unavailable Karlos Lyons MD Primary Care Provider Yefri Hilliard MD Unavailable [phone] Karlos Murry MD Unavailable [phone] Sergey Tyson MD Primary Care Provider Apple Talavera MD Unavailable [phone] Sergey Tyson MD Unavailable Mena Mcwilliams RN Unavailable [phone] Encounter Details Date Type Department Care Team (Late st Contact Info) Description 02/22/2022 Procedure Pass [facility], [address] [address] Social History Tobacco Use Types Packs/Day Years Used Date Smoking Tobacco: Former Cigarettes 1.5 7 1 964 - 1971 Smokeless Tobacco: Never Comments:quit 1970 Alcohol Use [...] st Contact Info) Description 03/18/2024 Procedure Pass [address] [address] 04/13/2025 9:00 AM EDT Appointment [facility] Internal Medicine [address] [place] [address] Sergey Tyson MD 40 [place] [address] 04/21/2025 3:00 PM EDT Appointment [address] [address] Apple Talavera MD [address] [place] [address] 04/27/2025 8:30 AM EDT Office Visit [facility] at [address] [address] Apple Talavera MD [address] [place] [address] [email or web address] documented as of this encounter Visit Diagnoses Not on filedocumented in this encounter Additional Health Concerns Infection Onset Date Last Indicated Resolved Time CoV-Risk 05/07/2022 05/07/2022 05/18/2022 1:24 AM EDT Assessment Noted Time PHQ-2 Depression Total Score: 0 05/05/20 9:23 PM EDT documented as of this encounter Care Teams Rotating Equipment Specialist Relationship Specialty Start Date End Date Karlos Lyons MD [address] [address] [email or web address] PCP - General Internal Medicine 05/08/21 05/09/22 Sergey Tyson MD [address] [place] [address] [email or web address] PCP - General Internal Medicine 05/10/22 Karlos Lyons MD [address] [place] [address] [email or web address] Insurance Assigned Provider 02/23/17 03/02/23 Omar Rocha MD [address] [place] [address] [email or web address] Physical Medicine and Rehabilitation 05/08/21 Sagar Leung MD [address] [place] [address] [email or web address] Obstetrics and Gynecology 05/08/21 Yefri Hilliard MD [address] [place] [address] Endocrinology 05/08/21 Karlos Murry MD [address] [place] [address] [email or web address] Gastroenterology 02/27/22 Apple Talavera MD [address] [place] [email or web address] Primary Oncologist Medical Oncology 02/19/23 Sergey Tyson MD [address] [place] [address] [email or web address] Insurance Assigned Provider 02/29/24 Mena Mcwilliams RN [address] [place] [address] [email or web address] iCMP Highway Landscape Architect 11/13/23 12/11/23 documented as of this encounter Additional Source Comments The information contained in this document represents components of the legal health record. It is not the complete legal health record.[facility]
--- OUTSIDE RECORDS SUMMARY | 2025-03-30 13:00 | XMS_ITS | Encounter Summary ---
Author Organization [facility]erg[facility] Address [address] [place] [address] [address] [place] [address] Phone Care Team Providers Care Sales Assistant Institutional Sales Name Role Phone Karlos Lyons MD Unavailable [phone] Omar Rocha MD Unavailable Sagar Leung MD Unavailable Karlos Lyons MD Primary Care Provider Yefri Hilliard MD Unavailable [phone] Karlos Murry MD Unavailable [phone] Sergey Tyson MD Primary Care Provider [phone] Apple Talavera MD Unavailable [phone] Sergey Tyson MD Unavailable Mena Mcwilliams RN Unavailable [phone] Reason for Referral * MRI/CAT Scan - Closed Specialty Diagnoses / Procedures Referred By Jessica balbuena Referred To Contact Radiology Diagnoses Vision loss Nonintractable headache, unspecified chronicity pattern, unspecified headache type Procedures MRI Brain Berto Quintanilla MD [address] [facility], [address] [place] [address] Email: Referral ID Status Reason Start Date Expiration Date Visits Re quested Visits Authorized [id number] Closed 02/22/2022 02/22/2023 1 1 Encounter Details Date Type Department Care Team (Latest Contact Info) Description 02/22/2022 Transcribe Orders Virtual Department [address] [place] [address] Berto Quintanilla MD [address] [place] [address], [address] [place] [address] [email or web address] Vision loss (Primary Dx); Nonintractable headache, unspecified chronicity pattern, unspecified headache type; TIA (transient ischemic attack) Social History Tobacco Use Types Packs/Day Years Used Date Smoking Tobacco: Former Cigarettes 1.5 7 1 1970 Smokeless Tobacco: Never Comments:quit 1970 Alcohol [...] st Contact Info) Description 03/18/2024 Procedure Pass [address] [address] 04/13/2025 9:00 AM EDT Appointment [facility] [place] Internal Medicine [address] [place] [address] Sergey Tyson MD 40 [place] [address] 04/21/2025 3:00 PM EDT Appointment [address] [address] Apple Talavera MD [address] [place] [address] [email or web address] 04/27/2025 8:30 AM EDT Office Visit [facility] [place] [address] [place] [address] Apple Talavera MD 30 [place] [address] [email or web address] documented as of this encounter Results * MRI BRAIN WITHOUT CONTRAST (03/14/2022 4:50 PM EDT) Anatomical Region Laterality Modality Head Magnetic Resonan ce 03/14/2022 5:37 PM EDT Impressions 03/14/2022 5:43 PM EDT 1.No acute infarction, intracranial hemorrhage, mass lesion, or hydrocephalus. 2.Foci of reduced diffusion within the calvarium, which given stability for nearly 7 years (03/31/2015) are likely benign. Narrative 03/14/2022 5:43 PM EDT MRI BRAIN WITHOUT CONTRAST TECHNIQUE: Multi-sequence, multi-planar MRI of the brain was performed without intravenous contrast. COMPARISON: MRI-MRA HEAD O FINDINGS: Brain Parenchyma: No evidence of acute infarct, mass lesion, or hemorrhage. The cerebellar tonsils terminating at the level of foramen magnum, unchanged in position. Preserved tonsillar morphology. Few scattered T2/FLAIR hyperintensities in the periventricular and deep white matter of the cerebral hemispheres, which are nonspecific, and likely reflect chronic small vessel disease. Ventricular System and Extra-Axial Spaces: Ventricles, sulci, and cisterns are unchanged in size and configuration. No evidence of CSF effacement at the cervicomedullary junction. No evidence of midline shift or hydrocephalus. Extracranial Structures: Arterial flow voids in the skull base are present. Unchanged focus exhibiting reduced diffusion and T1 hypointensity within the right parietal calvarium and a smaller lesion exhibiting reduced diffusion and the left frontal calvarium. Minimal mucosal thickening at the posterior right ethmoid air cells. Procedure Note Rebecca Jean MD - 03/14/2022 MRI BRAIN WITHOUT CONTRAST TECHNIQUE: Multi-sequence, multi-planar MRI of the brain was performed withoutintravenous contrast. COMPARISON: MRI-[facility]RA HEAD [facility] FINDINGS: Brain Parenchyma: No evidence of acute infarct, mass lesion, orhemorrhage. The cerebellar tonsils terminating at the level of foramenmagnum, unchanged in position. Preserved tonsillar morphology. Fewscattered T2/FLAIR hyperintensities in the periventricular and deep whitematter of the cerebral hemispheres, which are nonspecific, and likelyreflect chronic small vessel disease. Ventricular System and Extra-Axial Spaces: Ventricles, sulci, and cisternsare unchanged in size and configuration. No evidence of CSF effacement atthe cervicomedullary junction. No evidence of midline shift orhydrocephalus. Extracranial Structures: Arterial flow voids in the skull base arepresent. Unchanged focus exhibiting reduced diffusion and T1 hypointensitywithin the right parietal calvarium and a smaller lesion exhibitingreduced diffusion and the left frontal calvarium. Minimal mucosalthickening at the posterior right ethmoid air cells. IMPRESSION: 1.No acute infarction, intracranial hemorrhage, mass lesion, orhydrocephalus. 2.Foci of reduced diffusion within the calvarium, which given stabilityfor nearly 7 years (03/31/2015) are likely benign. Berto Quintanilla MD IMG MR HEAD/NECK * US Carotid Duplex Complete (Bilateral) (03/14/2022 4:02 PM EDT) Anatomical Region Laterality Modality Heart, Thoracic Vasculature, Neck Ultrasound 03/15/2022 11:0 6 AM EDT Impressions 03/15/2022 11:15 AM EDT 1. ??No hemodynamically significant internal carotid artery stenosis. 2. ??Bilateral antegrade vertebral artery flow. Narrative 03/15/2022 11:15 AM EDT COMPARISON: None. CAROTID ULTRASOUND FINDINGS: RIGHT: Peak external carotid artery: 154 cm/sec Peak vertebral: 69 cm/sec and antegrade Carotid artery morphology: Mild mixed plaque in the bulb. Peak common carotid artery: 97/20 cm/sec Peak internal carotid artery: 125/40 cm/sec Normal peak systolic ratio. LEFT: Peak external carotid artery: 227 cm/sec Peak vertebral: 60 cm/sec and antegrade Carotid artery morphology: Mild mixed plaque in the bulb. Peak common carotid artery: 128/26 cm/sec Peak internal carotid artery: 117/32 cm/sec Normal peak systolic ratio. Any stenosis measurement is relative to the distal ICA diameters. Procedure Note Raymond Todd MD - 03/15/2022 COMPARISON: None. CAROTID ULTRASOUND FINDINGS: RIGHT: Peak external carotid artery: 154 cm/sec Peak vertebral: 69 cm/sec and antegrade Carotid artery morphology: Mild mixed plaque in the bulb. Peak common carotid artery: 97/20 cm/sec Peak internal carotid artery: 125/40 cm/sec Normal peak systolic ratio. LEFT: Peak external carotid artery: 227 cm/sec Peak vertebral: 60 cm/sec and antegrade Carotid artery morphology: Mild mixed plaque in the bulb. Peak common carotid artery: 128/26 cm/sec Peak internal carotid artery: 117/32 cm/sec Normal peak systolic ratio. Any stenosis measurement is relative to the distal ICA diameters. IMPRESSION: 1. No hemodynamically significant internal carotid artery stenosis. 2. Bilateral antegrade vertebral artery flow. Berto Quintanilla MD CV US NEUROVASCULAR documented in this encounter Visit Diagnoses Diagnosis Vision loss- Primary Unspecified visual loss Nonintractable headache, unspecified chronicity pattern, unspecified headache type TIA (transient ischemic attack) Unspecified transient cerebral ischemia TIA (transient ischemic attack) Unspecified transient cerebral ischemia Vision loss Unspecified visual loss Nonintractable headache, unspecified chronicity pattern, unspecified headache type documented in this encounter Additional Health Concerns Infection Onset Date Last Indicated Resolved Time CoV-Risk 05/07/2022 05/07/2022 05/18/2022 1:24 AM EDT Assessment Noted Time PHQ-2 Depression Total Score: 0 06/11/20 21 9:23 PM EDT documented as of this encounter Care Teams Sales Assistant Institutional Sales Relationship Specialty Start Date End Date Karlos Lyons MD [address] [address] [email or web address] PCP - General Internal Medicine 05/08/21 05/09/22 Sergey Tyson MD [address] [place] [address] [email or web address] PCP - General Internal Medicine 05/10/22 Karlos Lyons MD [address] [place] [address] [email or web address] Insurance Assigned Provider 02/23/17 03/02/23 Omar Rocha MD [address] [place] [address] [email or web address] 05/08/21 Sagar Leugn MD [address] [place] [address] [email or web address] Obstetrics and Gynecology 05/08/21 Yefri Hilliard MD [address] [place] [address] Endocrinology 05/08/21 Karlos Murry MD [address] [place] [phone] [email or web address] Gastroenterology 02/27/22 Apple Talavera MD [address] [place] [address] [email or web address] Primary Oncologist Medical Oncology 02/19/23 Sergey Tyson MD [address] [place] [address] [email or web address] Insurance Assigned Provider 02/29/24 Mena Mcwilliams, RN [address] [place] [phone] [email or web address] iCMP Surgical Pathologist 11/13/23 12/11/23 documented as of this encounter Additional Source Comments The information contained in this document represents components of the legal health record. It is not the complete legal health record.[facility]
--- OUTSIDE RECORDS SUMMARY | 2025-03-30 13:00 | XMS_ITS | Encounter Summary ---
Author Organization [facility] Address [address] [place] [address] [address] [place] [address] Phone Care Team Providers Care Long Wall Shear Operator Name Role Phone Karlos Lyons MD Primary Care Provider Karlos Lyons MD Unavailable [phone] Omar Rocha MD Unavailable [phone] Sagar Leung MD Unavailable Karols Lyons MD Primary Care Provider [phone] Yefri Hilliard MD Unavailable [phone] Karlos Murry MD Unavailable [phone] Sergey Tyson MD Primary Care Provider [phone] Apple Talavera MD Unavailable [phone] Sergey Tyson MD Unavailable Mena Mcwilliams RN Unavailable [phone] Encounter Details Date Type Department Care Team (Late st Contact Info) Description 04/27/2021 Procedure Pass [place] Admitting Dept - Virtual Department [address] [place], [place] [id number] Social History Tobacco Use Types Packs/Day Years [...] st Contact Info) Description 03/18/2024 Procedure Pass [address] [address] 04/13/2025 9:00 AM EDT Appointment [facility] Medicine [address] [place] [address] Sergey Tyson MD [address] [place] [address] 04/21/2025 3:00 PM EDT Appointment [address] [address] Apple Talavera MD [address] [place] [address] [email or web address] 04/27/2025 8:30 AM EDT Office Visit [facility] at [address] [address] Apple Talavera MD [address] [place] [address] documented as of this encounter Visit Diagnoses Not on filedocumented in this encounter Additional Health Concerns Infection Onset Date Last Indicated Resolved Time CoV-Risk 05/07/2022 05/07/2022 05/18/2022 1:24 AM EDT Assessment Noted Time PHQ-2 Depression Total Score: 0 04/28/20 12:48 PM EDT documented as of this encounter Care Teams Long Wall Shear Operator Relationship Specialty Start Date End Date Karlos Lyons MD [address] [address] [email or web address] PCP - General Internal Medicine 07/14/14 05/07/21 Karlos Lyons MD [address] [place] [address] [email or web address] PCP - General Internal Medicine 05/08/21 05/09/22 Sergey Tyson MD [address] [place] [address] [email or web address] PCP - General Internal Medicine 05/10/22 Karlos Lyons MD [address] [place] [address] [email or web address] Insurance Assigned Provider 02/23/17 03/02/23 Omar Rocha MD [address] [place] [address] [email or web address] and [email or web address] 05/08/21 Sagar Leung MD [address] [place] [address], [address] [place] [address] [email or web address] Obstetrics and Gynecology 05/08/21 Yefri Hilliard MD [address] [place] [address] Endocrinology 05/08/21 Karlos Murry MD [address] [place] [address] [email or web address] Gastroenterology 02/27/22 Apple Talavera MD [address] [place] [address] [email or web address] Primary Oncologist Medical Oncology 02/19/23 Sergey Tysno MD [address] [place] [address] [email or web address] Insurance Assigned Provider 02/29/24 Mena Mcwilliams, RN [address] [place] [address] [email or web address] iCMP Pier Master Assistant 11/13/23 12/11/23 documented as of this encounter Additional Source Comments The information contained in this document represents components of the legal health record. It is not the complete legal health record.[facility]
--- OUTSIDE RECORDS SUMMARY | 2025-03-30 13:00 | XMS_ITS | Encounter Summary ---
Author Organization [facility] Address [facility] [address] [place] [address] Phone Care Team Providers Care Motor Bus Driver Name Role Phone Omar Rocha MD Unavailable [phone] Sagar Leung MD Unavailable Yefri Hilliard MD Unavailable Karlos Murry MD Unavailable Sergey Tyson MD Primary Care Provider [phone] Apple Talavera MD Unavailable [phone] Sergey Tyson MD Unavailable Reason for Visit * Reason Onset Date Comments Referral 03/18/2025 Gastroenterology Encounter Details Date Type Department Care Team (Late st Contact Info) Description 03/18/2025 Telephone [facility] [place] Internal Medicine [address] [place], [place] [phone] Sergey Tyson MD [address] [place] [address] [email or web address] Referral (Gastroenterology) Social History Tobacco Use Types Packs/Day Years [...] PM EDT documented as of this encounter Progress Notes * Lu Ramos - 03/18/2025 10:33 AM EDT Pt states she called weeks ago for revenue accounting manager referral but request says it was created on 03/18/25. She would like to know why this is not done yet. Please call [phone] documented in this encounter Plan of Treatment Upcoming Encounters Date Type Department Care Team (Late st Contact Info) Description 03/18/2024 Procedure Pass [address] [address] 04/13/2025 9:00 AM EDT Appointment [facility] Internal Medicine [address] [place] [address] Sergey Tyson MD [address] [place] [address] 04/21/2025 3:00 PM EDT Appointment [address] [address] Apple Talavera MD [address] [place] [address] 04/27/2025 8:30 AM EDT Office Visit [facility] at [address] [address] Apple Talavera MD [address] [place] [address] documented as of this encounter Visit Diagnoses Not on filedocumented in this encounter Additional Health Concerns Assessment Noted Time PHQ-9 Depression Total Score: 3 09/11/20 24 9:24 AM EDT PHQ-2 Depression Total Score: 1 09/11/20 24 9:24 AM EDT documented as of this encounter Care Teams Motor Bus Driver Relationship Specialty Start Date End Date Sergey Tyson MD [address] [place] [address] PCP - General Internal Medicine 05/10/22 Omar Rocha MD [email or web address] Physical Medicine and Rehabilitation 05/08/21 Sagar Leung MD [address] [place] [address] [email or web address] Obstetrics and Gynecology 05/08/21 Yefri Hilliard MD [address] [place] [address] Endocrinology 05/08/21 Karlos Murry MD [address] [place] [address] Gastroenterology 02/27/22 Apple Talavera MD [address] [place] [address] Primary Oncologist Medical Oncology 02/19/23 Sregey Tyson MD [address] [place] [address] Insurance Assigned Provider 02/29/24 documented as of this encounter Additional Source Comments The information contained in this document represents components of the legal health record. It is not the complete legal health record.[facility]
--- OUTSIDE RECORDS SUMMARY | 2025-03-30 13:00 | XMS_ITS | Encounter Summary ---
Author Organization [facility] Address [facility] [address] [place] [address] Phone Care Team Providers Care Assistant Health Educator Name Role Phone Karlos Lyons MD Unavailable Omar Rocha MD Unavailable Sagar Leung MD Unavailable Karlos Lyons MD Primary Care Provider Yefri Hilliard MD Unavailable Karlos Murry MD Unavailable [phone] Sergey Tyson MD Primary Care Provider [phone] Apple Talavera MD Unavailable [phone] Sergey Tyson MD Unavailable Mena Mcwilliams RN Unavailable [phone] Encounter Details Date Type Department Care Team (Late st Contact Info) Description 05/25/2021 Procedure Pass [place] Admitting Dept - Virtual Department [address] [place] [address] Social History Tobacco Use Types Packs/Day Years [...] st Contact Info) Description 03/18/2024 Procedure Pass [address] [address] 04/13/2025 9:00 AM EDT Appointment [facility] Internal Medicine [address] [place] [address] Sergey Tyson MD [address] [place] [address] 04/21/2025 3:00 PM EDT Appointment [address] [address] Apple Talavera MD [address] [place] [address] 04/27/2025 8:30 AM EDT Office Visit [facility] at [address] [address] Apple Talavera MD [address] [place] [address] documented as of this encounter Visit Diagnoses Not on filedocumented in this encounter Additional Health Concerns Infection Onset Date Last Indicated Resolved Time CoV-Risk 05/07/2022 05/07/2022 05/18/2022 1:24 AM EDT Assessment Noted Time PHQ-2 Depression Total Score: 0 05/05/20 21 9:23 PM EDT documented as of this encounter Care Teams Assistant Health Educator Relationship Specialty Start Date End Date Karlos Lyons MD [address] [address] [email or web address] PCP - General Internal Medicine 05/08/21 05/09/22 Sergey Tyson MD [address] [place] [address] [email or web address] PCP - General Internal Medicine 05/10/22 Karlos Lyons MD [address] [address] [email or web address] Insurance Assigned Provider 02/23/17 03/02/23 Omar Rocha MD [address] [place] [address] [email or web address] Physical Medicine and Rehabilitation 05/08/21 Sagar Leung MD [address] [place] [address] [email or web address] Obstetrics and Gynecology 05/08/21 Yefri Hilliard MD [address] [place] [address] Endocrinology 05/08/21 Karlos Murry MD [address] [place] [address] [email or web address] Gastroenterology 02/27/22 Apple Talavera MD [address] [place] [address] [email or web address] Primary Oncologist Medical Oncology 02/19/23 Sergey Tyson MD [address] [place] [address] [email or web address] Insurance Assigned Provider 02/29/24 Mena Mcwilliams, RN [address] [place] [address] [email or web address] iCMP Structural Analyst 11/13/23 12/11/23 documented as of this encounter Additional Source Comments The information contained in this document represents components of the legal health record. It is not the complete legal health record.[facility]
--- OUTSIDE RECORDS SUMMARY | 2025-03-30 13:00 | XMS_ITS | Encounter Summary ---
Author Organization [facility] Address [facility] [employer] [facility] [address] [place] [address] Phone Care Team Providers Care Frame Stripper And Crusher Name Role Phone Karlos Lyons MD Unavailable Omar Rocha MD Unavailable Sagar Leung MD Unavailable Karlos Lyons MD Primary Care Provider Yefri Hilliard MD Unavailable [phone] Karlos Murry MD Unavailable [phone] Sergey Tyson MD Primary Care Provider Apple Talavera MD Unavailable [phone] Sergey Tyson MD Unavailable Mena Mcwilliams RN Unavailable [phone] Encounter Details Date Type Department Care Team (Late st Contact Info) Description 02/27/2022 Procedure Pass [address] [address] Social History Tobacco Use Types Packs/Day Years [...] st Contact Info) Description 03/18/2024 Procedure Pass [address] [address] 04/13/2025 9:00 AM EDT Appointment [facility] Internal Medicine [address] [place] [address] Sergey Tyson MD 40 [place] [address] 04/21/2025 3:00 PM EDT Appointment [address] [address] Apple Talavera MD [address] [place] [address] 04/27/2025 8:30 AM EDT Office Visit [facility] at [address] [address] Apple Talavera MD [address] [place] [address] documented as of this encounter Visit Diagnoses Not on filedocumented in this encounter Additional Health Concerns Infection Onset Date Last Indicated Resolved Time CoV-Risk 05/07/2022 05/07/2022 05/18/2022 1:24 AM EDT Assessment Noted Time PHQ-2 Depression Total Score: 0 01/28/20 6:26 PM EST documented as of this encounter Care Teams Frame Stripper And Crusher Relationship Specialty Start Date End Date Karlos Lyons MD [address] [address] [email or web address] PCP - General Internal Medicine 05/08/21 05/09/22 Sergey Tyson MD [address] [place] [address] [email or web address] PCP - General Internal Medicine 05/10/22 Karlos Lyons MD [address] [address] [email or web address] Insurance Assigned Provider 02/23/17 03/02/23 Omar Rocha MD [address] [place] [address] [email or web address] Physical Medicine and Rehabilitation 05/08/21 Sagar Leung MD [address] [place] [address] [email or web address] Obstetrics and Gynecology 05/08/21 Yefri Hilliard MD [address] [place] [address] Endocrinology 05/08/21 Karlos Murry MD [address] [place] [address] [email or web address] Gastroenterology 02/27/22 Apple Talavera MD [address] [place] [address] [email or web address] Primary Oncologist Medical Oncology 02/19/23 Sergey Tyson MD [address] [place] [address] [email or web address] Insurance Assigned Provider 02/29/24 Mena Mcwilliams, RN [address] [place] [address] [email or web address] iCMP Steel Spar Operator 11/13/23 12/11/23 documented as of this encounter Additional Source Comments The information contained in this document represents components of the legal health record. It is not the complete legal health record.[facility]
--- OUTSIDE RECORDS SUMMARY | 2025-03-30 13:00 | XMS_ITS | Encounter Summary ---
Author Organization [facility] Address [address] [place] [address] [place] [address] Phone Care Team Providers Care Ethics Manager Name Role Phone Karlos Lyons MD Primary Care Provider Karlos Lyons MD Unavailable [phone] Omar Rocha MD Unavailable [phone] Sagar Leung MD Unavailable Karlos Lyons MD Primary Care Provider [phone] Yefri Hilliard MD Unavailable [phone] Karlos Murry MD Unavailable [phone] Sergey Tyson MD Primary Care Provider [phone] Apple Talavera MD Unavailable [phone] Sergey Tyson MD Unavailable Mena Mcwilliams RN Unavailable [phone] Encounter Details Date Type Department Care Team (Late st Contact Info) Description 04/20/2021 Procedure Pass [facility] Admitting Dept Virtual Department [address] [place] [address] Social History Tobacco Use Types Packs/Day Years [...] st Contact Info) Description 03/18/2024 Procedure Pass [address] [address] 04/13/2025 9:00 AM EDT Appointment [facility] Internal Medicine [address] [place] [address] Sergey Tyson MD [address] [place] [address] 04/21/2025 3:00 PM EDT Appointment [address] [address] Apple Talavera MD [address] [place] [address] 04/27/2025 8:30 AM EDT Office Visit [facility] at [address] [address] Apple Talavera MD [address] [place] [address] documented as of this encounter Visit Diagnoses Not on filedocumented in this encounter Additional Health Concerns Infection Onset Date Last Indicated Resolved Time CoV-Risk 05/07/2022 05/07/2022 05/18/2022 1:24 AM EDT Assessment Noted Time PHQ-2 Depression Total Score: 0 04/28/20 12:48 PM EDT documented as of this encounter Care Teams Ethics Manager Relationship Specialty Start Date End Date Karlos Lyons MD [address] [address] [email or web address] PCP - General Internal Medicine 07/14/14 05/07/21 Karlos Lyons MD [address] [place] [address] [email or web address] PCP - General Internal Medicine 05/08/21 05/09/22 Sergey Tyson MD [address] [place] [address] [email or web address] PCP - General Internal Medicine 05/10/22 Karlos Lyons MD [address] [place] [address] [email or web address] Insurance Assigned Provider 02/23/17 03/02/23 Omar Rocha MD [address] [place] [address] [email or web address] Physical Medicine and Rehabilitation 05/08/21 Sagar Leung MD [address] [place] [address], [address] [place] [address] [email or web address] Obstetrics and Gynecology 05/08/21 Yefri Hilliard MD [address] [place] [address] Endocrinology 05/08/21 Karlos Murry MD [address] [place] [address] [email or web address] Gastroenterology 02/27/22 Apple Talavera MD [address] [place] [address] [email or web address] Primary Oncologist Medical Oncology 02/19/23 Sergey Tyson MD [address] [place] [address] [email or web address] Insurance Assigned Provider 02/29/24 Mena Mcwilliams, RN [address] [place] [address] [email or web address] iCMP Ed Teacher 11/13/23 12/11/23 documented as of this encounter Additional Source Comments The information contained in this document represents components of the legal health record. It is not the complete legal health record.[facility]
--- OUTSIDE RECORDS SUMMARY | 2025-03-30 13:00 | XMS_ITS | Encounter Summary ---
Author Organization [facility] Address [facility] [employer] [facility] [address] [place] [address] Phone Care Team Providers Care Pocketed Spring Machine Operator Name Role Phone Karlos Lyons MD Unavailable [phone] Omar Rocha MD Unavailable [phone] Sagar Leung MD Unavailable Yefri Hilliard MD Unavailable Karlos Murry MD Unavailable [phone] Sergey Tyson MD Primary Care Provider Apple Talavera MD Unavailable [phone] Sergey Tyson MD Unavailable Mena Mcwilliams RN Unavailable [phone] Encounter Details Date Type Department Care Team (Late st Contact Info) Description 05/31/2022 Procedure Pass [place] Admitting Dept - Virtual Department [address] [place] [address] Social History Tobacco Use Types Packs/Day Years [...] high school, GED, job training, learning the [place] language, technical skills, or developing parenting skills)? [...] st Contact Info) Description 03/18/2024 Procedure Pass [address] [address] 04/13/2025 9:00 AM EDT Appointment [facility] [place] Internal Medicine [address] [place] [address] Sergey Tyson MD [address] [place] [address] 04/21/2025 3:00 PM EDT Appointment [place] [address] [place] [address] Apple Talavera MD [address] [place] [email or web address] 04/27/2025 8:30 AM EDT Office Visit [facility] Center at [address] [address] Apple Talavera MD [address] [place] [address] [email or web address] documented as of this encounter Visit Diagnoses Not on filedocumented in this encounter Additional Health Concerns Assessment Noted Time PHQ-2 Depression Total Score: 2 05/05/20 22 10:17 AM EDT documented as of this encounter Care Teams Pocketed Spring Machine Operator Relationship Specialty Start Date End Date Sergey Tyson MD [address] [place] [address] [email or web address] PCP - General Internal Medicine 05/10/22 Karlos Lyons MD [address] [place] [address] [email or web address] Insurance Assigned Provider 02/23/17 03/02/23 Omar Rocha MD [address] [place] [address] [email or web address] Physical Medicine and Rehabilitation 05/08/21 Sagar Leung MD 22 [facility], [address] [place] [address] [email or web address] Obstetrics and Gynecology 05/08/21 Yefri Hilliard MD [address] [place] [address] Endocrinology 05/08/21 Karlos Murry MD [address] [place] [address] [email or web address] Gastroenterology 02/27/22 Apple Talavera MD [address] [place] [address] [email or web address] Primary Oncologist Medical Oncology 02/19/23 Sergey Tyson MD [address] [place] [address] [email or web address] Insurance Assigned Provider 02/29/24 Mena Mcwilliams, RN [address] [place] [address] [email or web address] iCMP Senior Software Engineering Manager 11/13/23 12/11/23 documented as of this encounter Additional Source Comments The information contained in this document represents components of the legal health record. It is not the complete legal health record.[facility]
--- OUTSIDE RECORDS SUMMARY | 2025-03-30 13:00 | XMS_ITS | Encounter Summary ---
Author Organization [facility] Address [facility] access hospital [employer] [facility] [address] [place] [address] Phone Care Team Providers Care Manager Lan Name Role Phone Karlos Lyons MD Unavailable [phone] Omar Rocha MD Unavailable [phone] Sagar Leung MD Unavailable Karlos Lyons MD Primary Care Provider [phone] Yefri Hilliard MD Unavailable Karlos Murry MD Unavailable [phone] Sergey Tyson MD Primary Care Provider Apple Talavera MD Unavailable [phone] Sergey Tyson MD Unavailable Mena Mcwilliams RN Unavailable Encounter Details Date Type Department Care Team (Latest Contact Info) Description 05/08/2021 Transcribe Orders Virtual Department [address] [place], [place] [phone] Omar Rocha MD [address] [place] [address] [email or web address] Left wrist pain (Primary Dx) Social History Tobacco Use [...] st Contact Info) Description 03/18/2024 Procedure Pass [address] [address] 04/13/2025 9:00 AM EDT Appointment [facility] Internal Medicine [address] [place] [address] Sergey Tyson MD [address] [place] [address] 04/21/2025 3:00 PM EDT Appointment [address] [address] Apple Talavera MD [address] [place] [address] 04/27/2025 8:30 AM EDT Office Visit [facility] at [address] [address] Apple Talavera MD [address] [place] [address] [phone] documented as of this encounter Results * XR WRIST 3 OR MORE VIEWS (LEFT) (05/11/2021 8:57 AM EDT) Anatomical Region Laterality Modality Wrist Left Computed Radiogr aphy 05/11/2021 9:02 AM EDT Impressions 05/11/2021 9:06 AM EDT Mild degenerative changes. Narrative 05/11/2021 9:06 AM EDT HISTORY: Pain. TECHNIQUE: XR WRIST 3 OR MORE VIEWS (LEFT) . COMPARISON: None ? FINDINGS: Mild marginal spurring at the first MTP joint. Mild marginal spurring at the first carpal metacarpal joint. Mild joint space narrowing and spurring at the lateral intercarpal joints. No evidence of erosions. No fractures, subluxations or dislocations. No suspicious lytic or blastic lesions within the bones. No suspicious soft tissue calcifications. Procedure Note Hammad Anders MD - 05/11/2021 HISTORY: Pain. TECHNIQUE: XR WRIST 3 OR MORE VIEWS (LEFT) . COMPARISON: None FINDINGS: Mild marginal spurring at the first MTP joint. Mild marginal spurring atthe first carpal metacarpal joint. Mild joint space narrowing and spurringat the lateral intercarpal joints. No evidence of erosions. No fractures, subluxations or dislocations. No suspicious lytic or blasticlesions within the bones. No suspicious soft tissue calcifications. IMPRESSION: Mild degenerative changes. Omar Rocha MD IMG XR UPPER EX TREMITY documented in this encounter Visit Diagnoses Diagnosis Left wrist pain- Primary Pain in joint, forearm Left wrist pain Pain in joint, forearm documented in this encounter Additional Health Concerns Infection Onset Date Last Indicated Resolved Time CoV-Risk 05/07/2022 05/07/2022 05/18/2022 1:24 AM EDT Assessment Noted Time PHQ-2 Depression Total Score: 0 05/05/20 21 9:23 PM EDT documented as of this encounter Care Teams Manager Lan Relationship Specialty Start Date End Date Karlos Lyons MD [address] [address] [email or web address] PCP - General Internal Medicine 05/08/21 05/09/22 Sergey Tyson MD [address] [place] [address] [email or web address] PCP - General Internal Medicine 05/10/22 Karlos Lyons MD [address] [place] [address] [email or web address] Insurance Assigned Provider 02/23/17 03/02/23 Omar Rocha MD [address] [place] [address] [email or web address] Physical Medicine and Rehabilitation 05/08/21 Sagar Leung MD [address] [place] [address] [email or web address] Obstetrics and Gynecology 05/08/21 Yefri Hilliard MD [address] [place] [address] Endocrinology 05/08/21 Karlos Murry MD [address] [place] [address] [email or web address] Gastroenterology 02/27/22 Apple Talavera MD [address] [place] [address] [email or web address] Primary Oncologist Medical Oncology 02/19/23 Sergey Tyson MD [address] [place] [address] [email or web address] Insurance Assigned Provider 02/29/24 Mena Mcwilliams RN [address] [place] [address] [email or web address] [employer] Band Straightener 11/13/23 12/11/23 documented as of this encounter Additional Source Comments The information contained in this document represents components of the legal health record. It is not the complete legal health record.[facility]
--- OUTSIDE RECORDS SUMMARY | 2025-03-30 13:00 | XMS_ITS | Encounter Summary ---
Author Organization [facility] Address [facility] [employer] [facility] [address] [place] [address] Phone Care Team Providers Care Deputy K 9 Name Role Phone Karlos Lyons MD Primary Care Provider Karlos Lyons MD Unavailable [phone] Omar Rocha MD Unavailable [phone] Sagar Leung MD Unavailable Karlos Lyons MD Primary Care Provider + [phone] Yefri Hilliard MD Unavailable [phone] Karlos Murry MD Unavailable [phone] Sergey Tyson MD Primary Care Provider [phone] Apple Talavera MD Unavailable [phone] Sergey Tyson MD Unavailable Mena Mcwilliams RN Unavailable [phone] Encounter Details Date Type Department Care Team (Late st Contact Info) Description 08/06/2020 Procedure Pass [facility], [address] [id number] Social History Tobacco Use Types Packs/Day Years Used Date Smoking Tobacco: Former Cigarettes 1.5 7 1 964 - 1970 Smokeless Tobacco: Never Comments:quit 1970 Alcohol Use Standard Drinks/Week Comments No 0 [...] st Contact Info) Description 03/18/2024 Procedure Pass [address] [address] 04/13/2025 9:00 AM EDT Appointment [facility] Medical [facility] Internal Medicine [address] [place] [phone] Sergey Tyson MD [address] [place] [address] 04/21/2025 3:00 PM EDT Appointment [address] [address] Apple Talavera MD [address] [place] [phone] 04/27/2025 8:30 AM EDT Office Visit [facility] at [address] [address] Apple Talavera MD [address] [place] [phone] documented as of this encounter Visit Diagnoses Not on filedocumented in this encounter Additional Health Concerns Infection Onset Date Last Indicated Resolved Time CoV-Risk 05/07/2022 05/07/2022 05/18/2022 1:24 AM EDT Assessment Noted Time PHQ-2 Depression Total Score: 0 04/28/20 12:48 PM EDT documented as of this encounter Care Teams Deputy K 9 Relationship Specialty Start Date End Date Karlos Lyons MD [address] [address] [email or web address] PCP - General Internal Medicine 07/14/14 05/07/21 Karlos Lyons MD [address] [place] [phone] [email or web address] PCP - General Internal Medicine 05/08/21 05/09/22 Sergey Tyson MD [address] [place] [address] [email or web address] PCP - General Internal Medicine 05/10/22 Karlos Lyons MD [address] [place] [phone] [email or web address] Insurance Assigned Provider 02/23/17 03/02/23 Omar Rocha MD [address] [place] [address] [email or web address] Physical Medicine and Rehabilitation 05/08/21 Sagar Leung MD [address] [place] [address], [address] [place] [address] [email or web address] Obstetrics and Gynecology 05/08/21 Yefri Hilliard MD [address] [place] [phone] Endocrinology 05/08/21 Karlos Murry MD [address] [place] [id number] [email or web address] Gastroenterology 02/27/22 Apple Talavera MD [address] [place] [address] [email or web address] Primary Oncologist Medical Oncology 02/19/23 Sergey Tyson MD [address] [place] [phone] [email or web address] Insurance Assigned Provider 02/29/24 Mena Mcwilliams, RN [address] [place] [id number] [email or web address] 11/13/23 12/11/23 documented as of this encounter Additional Source Comments The information contained in this document represents components of the legal health record. It is not the complete legal health record.[facility]
--- OUTSIDE RECORDS SUMMARY | 2025-03-30 13:00 | XMS_ITS | Clinical Summary ---
Author Organization [facility] Address [address] [facility] [address] [place] [address] Phone Care Team Providers Care Claims Agent Right Of Way Name Role Phone Omar Rocha MD Unavailable [phone] Sagar Leung MD Unavailable Yefri Hilliard MD Unavailable [phone] Adan Hoffman MD Unavailable Sergey Tyson MD Primary Care Provider Apple Talavera MD Unavailable Sergey Tyson MD Unavailable Allergies Active Allergy Reactions Criticality Noted Date Comments Povidone-Iodine Hives 01/20/2019 Cefaclor Rash Low 01/07/2018 Colchicine Diarrhea 10/20/2018 Cortisone Arrhythmia High 11/04/2014 Dicyclomine Headaches,Nausea and/or Vomiting 04/16/2022 Fentanyl 01/20/2019 Patch only - caused arrhythmia; IV fentanyl no reaction Perfume Shortness Of Breath High 08/30/2020 Multiple chemical sensitivity + fragrance sensitivity Gabapentin Other (See Comments) High 05/06/2018 confusion Indomethacin Sodium Other (See Comments) 2014 migraines Indomethacin 04/10/2024 Other Reaction(s): migraine Iodinated Contrast Media Hives High 01/06/2015 Iodine And Iodide Containing Products Hives 09/08/2020 Kenalog (Triamcinolone Acetonide) Other (See Comments) 01/06/2015 diaphoresis, swelling Latex Hives High 01/06/2015 adhesive tape- latex base Levaquin (Levofloxacin) Anaphylaxis High 01/06/2015 Lisinopril Cough 01/06/2015 Monosodium Glutamate Anaphylaxis High 01/06/2015 Morphine Nausea And Vomiting 01/06/2015 Nsaids (Non-Steroidal Anti-Inflammatory Drug) 03/10/2019 GI Bleed Other Hives 01/07/2018 BEE STING, OXYCONTIN - disoriented, MSG-anaphylaxis, CHOCOLATE -gi upset Penicillins Hives 01/06/2015 Propranolol Mental Status Change 01/07/2018 depression Other Reaction(s): depressed Sulfa (Sulfonamide Antibiotics) Hives 01/06/2015 Tamsulosin 04/10/2024 Sulfa based pt states Tenormin (Atenolol) 04/10/2024 Other Reaction(s): depressed Tetracycline Nausea and/or Vomiting 01/06/2015 Tramadol Headaches 04/19/2021 Triamcinolone Acetonide Swelling High 09/08/2020 Medications Medication Sig Dispensed Refills Start Date End Date Status ondansetron (ZOFRAN-ODT) 4 MG disintegrating tablet Take 4 mg by mouth 2 (two) times a day as needed for nausea. Active lidocaine (LIDODERM) 5 % Place 3 patches onto the skin daily. Remove & Discard patch within 12 hours or as directed by MD as needed Active simethicone 125 mg Cap Take 125 mg by mouth 3 (three) times a day as needed. Active cyanocobalamin, vitamin B-12, (VITAMIN B-12 ORAL) Take 500 mcg by mouth daily. Active DOCUSATE SODIUM ORAL Take 100 mg by mouth 2 (two) times a day. Active LORazepam (ATIVAN) 0.5 MG tablet TAKE 3 TABLETS BY MOUTH NIGHTLY AT BEDTIME. MAY TAKE 1 TABLET IN THE DAYTIME NEEDED. 120 tablet 2 11/30/2021 Active cholecalciferol (VITAMIN D3) 2,000 unit capsule Take 2,000 Units by mouth daily. 09/08/2022 Active omeprazole (PRILOSEC) 20 MG capsule Take 20 mg by mouth 2 (two) times a day. 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 Rocha at [facility] Take 10 mg by mouth 4 (four) times a day. And take 2 tablets at bedtime. Indications: managed by Dr. Rocha at [facility] 09/29/2023 Active magnesium oxide (URO-MAG) 84.5 mg mag (140 mg) CapIndications:Cramp ing of feet Take 1 capsule (140 mg total) by mouth nightly at bedtime. 90 capsule 1 09/28/2024 Active fluticasone propionate (FLONASE) 50 mcg/actuation nasal sprayIndications:PND (post-nasal drip) spray 2 sprays into each nostril every day 48 mL 3 11/12/2024 Active losartan (COZAAR) 100 MG tabletIndications:Hy pertension TAKE 1 TABLET BY MOUTH EVERY DAY 90 tablet 3 01/20/2025 Active levothyroxine (SYNTHROID, LEVOTHROID) 137 MCG tabletIndications:Po stablative hypothyroidism TAKE 1 TABLET BY MOUTH EVERY MORNING. 90 tablet 3 02/11/2025 Active nystatin (MYCOSTATIN) 100,000 units/mL suspensionIndication s:Thrush Take 5 mL (500,000 Units total) by mouth 4 (four) times a day. 140 mL 03/23/2025 Active clarithromycin (BIAXIN) 500 MG tabletIndications:Pn eumonia of right lower lobe due to infectious organism Take 1 tablet (500 mg total) by mouth 2 (two) times a day for 7 days. 14 tablet 03/23/2025 5 Active albuterol 90 mcg/actuation inhalerIndications:P neumonia of right lower lobe due to infectious organism Inhale 2 puffs into the lungs every 6 (six) hours as needed for wheezing. 18 g 03/26/2025 Active azithromycin (ZITHROMAX) 500 MG tabletIndications:Pn eumonia of left lower lobe due to infectious organism Take 1 tablet (500 mg total) by mouth daily. 5 tablet 11/12/2024 5 Discontinue d(No longer taking) Active Problems Patient Care Coordination No te Formatting of this note migh t be different from the original. HEIGHT 166.4cm no shoes 02/27/23 Problem Noted Date Diagnosed Date Pneumonia of right lower lobe due to infectious organism 03/26/2025 Assessment & Plan (03/26/2025 12:09 PM EDT): Recently diagnosed with right lower lobe pneumonia [...] but notes that her breathing is okay. She occasionally gets some shortness of breath with exertion [...] going to the hospital at all cost. Acute upper respiratory infection 03/23/2025 Assessment & Plan (03/23/2025 1:58 PM EDT): Patient presenting today with 5 days of fever, chills, headache, light sensitivity, nausea, and constant cough. 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 Oxygen saturation 90% room air. Patient appearing in no acute distress today, sitting in the office chair breathing normally. On exam her lungs were clear to inspiration but snoring was noted on exhalation bilaterally. There were no murmurs rubs or gallops noted on cardiac exam. Due to the description of her symptoms as well as the timeframe, likely in the setting of a viral illness. Discussed concerns with oxygen saturation being 90% room air, patient states she occasionally gets short of breath but does not feel it currently. Advised that if she has dyspnea on exertion or shortness of breath that she should go to the ER if she cannot breathe. Patient notes understanding. Discussed symptomatic treatment of viral illnesses including Tylenol, antihistamine such as Claritin or Zyrtec, Mucinex. Flu/COVID/RSV negative. Due to the abnormal breath sounds as well as her fever and constant cough, will obtain chest x-ray for further assessment. If positive for pneumonia, will initiate antibiotics, patient with a long history of allergies, doxycycline and Augmentin appear to be appropriate. If chest x-ray is negative, will prescribe prednisone 40 mg x 5 days for symptomatic relief. Thrush 03/23/2025 Assessment & Plan (03/23/2025 1:56 PM EDT): Patient presenting today with multiple days of bitter taste in her mouth. On exam there were yellow/white patches noted on her tongue consistent with thrush. Nystatin swish and swallow ordered. Unsure about etiology of thrush as she has had no recent antibiotic use. Cramping of feet 09/28/2024 Assessment & Plan (09/28/2024 10:43 AM EST): Will trial her on Mag-Ox 400 milligrams p.o. nightly to see if we can reduce the likelihood of cramping, hydration also recommended. Pharyngoesophageal dysphagia 09/25/2024 Gastroesophageal reflux dise ase with esophagitis without hemorrhage 09/25/2024 Epigastric pain 09/25/2024 Assessment & Plan (10/30/2024 12:52 PM EST): Recommend urgent CT abdomen/pelvis for new pain with palpable mass. ?biliary vs. Hernia vs. Other intraabdominal pathology. Labs today. If any worsening symptoms to follow up emergently. 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 Counseled patient on whether she might have allergies to the Bentyl as listed but this appears to be a red clark. Possible constipation dry mouth and dizziness can occur. Therefore try lower dose of 10 mg first. Pain of left calf 04/12/2023 Assessment & Plan (04/12/2023 11:09 AM EDT): With history of left lateral posterior Swift's cyst even though the ultrasound was reported negative for such lets set the patient up with [facility] orthopedics to reassess if that is indeed the reason for her left lateral calf pain. If it is in the Swift's cyst can be found then it can be drained in the problem may then be resolved at least for some time. Left leg pain 03/11/2023 Assessment & Plan (03/11/2023 5:35 PM EDT): Left leg pain and vene ectatic x 2 weeks, concerning for dvt: will order an urgent US for tomorrow and if pos will see pt in the office in f/u and start on eliquis. PND (post-nasal drip) 01/28/2023 Routine general medical exam ination at a health care facility 01/28/2023 Assessment & Plan (04/10/2024 10:47 AM EDT): The exam is negative for any acute illness. In follow-up of her blood pressure the losartan is working well we can maintain the losartan at 100 mg check electrolytes kidney function and I will follow-up in 6 months. In regards to hypothyroidism we can maintain the Levoxyl at its current dosing and again check TSH today and possibly in 6 months if needed. No signs of overt hypo or hyperthyroidism. In regards to the patient's history of kidney disease patient information given about kidney friendly diet vis-??-vis kidney stones. Will obtain a urinalysis and Chem-7. The history of bone demineralization is seen on chest x-ray or other x-rays obtained, obtain a bone density scan and if positive for osteoporosis referral to rheumatology, patient in agreement. Will do the bone density scan at [facility]. In regards to night sweats and some weight loss lets obtain CBC with differential and LFTs. If there is any abnormalities there will further pursue. Even though the PQ-9 score is elevated my impression is that the patient is not depressed and does not need therapy or treatment. Barring any pathology in the labs we can see the patient back in 6 months for return visit follow-up hypertension. Assessment & Plan (01/28/2023 11:19 AM EST): Patient's blood pressure well controlled, no signs of hypothyroidism, we can recheck electrolytes kidney function and thyroid in 6 months time. I did talk to her about the Ativan its possible that would overtake this from [place] [facility] sports but will cross that bridge when we come to it. Health maintenance appears to be up-to-date, we talked to her about the postnasal drip and how to use the Flonase and she does have an accurate consent on how to take it. Frequency of urination 09/10/2022 Assessment & Plan (09/10/2022 3:23 PM EDT): Frequency of urination with some flank pain, no blood in the urine but some streaking. Right now low threshold to restarting antibiotic, obtain urinalysis and if leukocyturia and nitrite consider restarting antibiotics. Going forward we can obtain for frequent UTIs urinalysis/culture and do a video visit at the end of the day. Pyelonephritis 06/01/2022 Assessment & Plan (06/01/2022 3:23 PM EDT): Long discussion with patient Presumed pyelo from ER visit S/p keflex without sig improvement Discussed empiric treatment with abx But patient extensive drug allergies and ADR Opted to recheck urine at [facility] lab due to [facility]'s protocol on sending out urine for culture Hydrate, cranberry To ER for severe sxs Offered empiric cepodoxime - extensive discussion regarding risks of med Risks/benefits of therapy explained, including MAT and other treatment options. Patient verbalized understanding and agreement of the above Skin cancer of nose 11/27/2021 Post-menopausal bleeding 05/25/2021 Esophageal spasm 04/20/2021 Overview (05/08/2021): seen on upper endoscopy 04/20/21 H. pylori infection 02/21/2020 Adenomatous polyp of colon 12/01/2019 Overview (12/01/2019): last colonoscopy 10/14/15 revealed sigmoid diverticulosis; significant colonic spasm; internal hemorrhoids; several adenomatous polyps. 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 Robles Personal history of breast cancer 12/31/2018 Vaginal atrophy 12/31/2018 Postablative hypothyroidism 08/13/2018 Assessment & Plan (09/28/2024 10:42 AM EST): Will adjust levothyroxine if need be, check TSH free T4 today. No clinical signs of hypothyroidism. Assessment & Plan (10/09/2023 3:52 PM EST): The patient will increase 137 mcg daily of levothyroxine taking it without food and other medicine. Then will recheck TSH free T3 in 7 to 8 weeks. Assessment & Plan (09/10/2022 3:22 PM EDT): She tends to think that the current dosing of Levoxyl might be to much. She is having some symptoms of hyperthyroidism, obtain a TSH and adjust levothyroxine accordingly. Assessment & Plan (05/29/2022 10:53 AM EDT): tsh in normal limits recently assessed, we can reasses in one year Assessment & Plan (08/13/2019 9:03 AM EDT): The patient is chemically euthyroid with levothyroxine 112 mcg Saturday through Saturdays and 1-1/2 tablets on Sundays but she feels that she is not getting restful sleep she feels that she is twitching. She would like to decrease the dose back to 112 mcg daily. I think that is fine the TSH showed an increase above the normal reference range. Recall that previously we increased it by half a tablet because she was feeling sluggish at 112 but now she feels that is just too much. So less decrease the dose and see if that makes her feel better. I will give her a follow-up appointment in 1 year I ordered thyroid function studies for repeat lab work prior to the visit. Her most recent thyroid function studies were done at [facility] and this can be found in the media file. Assessment & Plan (08/13/2018 9:09 AM EDT): The patient is now chemically euthyroid for the most part she is clinically euthyroid. The only symptom that could be associated with hypothyroidism that she has is myalgias. She also continues to have palpitations but this is seen with hypothyroidism and this is not the case based on her thyroid function studies. For the most part she feels well but she does have difficulty falling asleep. Again I do not think that the TSH is too low it is right in the reference range in the midline level. I think that the patient should continue levothyroxine 112 mcg Saturday through Saturdays and 1-1/2 tablets on Sundays. This seems to be working the patient states she has more energy and more stamina so I think that we should not change something that is functioning well for the most part. Again I cannot explain why the patient is having diaphoresis, palpitations and myalgias. She will follow in a year. I have renew her medications for the entire year and requested lab work for the follow- up visit. Chronic pain of left wrist 05/06/2018 Chronic pain of right wrist 05/06/2018 Chronic pain syndrome 01/07/2018 Gastroesophageal reflux disease without esophagi tis 01/07/2018 Assessment & Plan (09/10/2022 3:21 PM EDT): Workmen's Comp. related back surgery related GI complaints particularly GERD and dysphagia. Trial of Dexilant given the fact that it is a little bit different than the other PPIs. We should note that if it successful that we could push through a claim but based on the fact that she has tried all the other PPIs. She will go for the EGD as scheduled in a few days. Assessment & Plan (05/29/2022 10:54 AM EDT): Will continue with the axid solution, which works well for the pt Rotator cuff syndrome 09/21/2014 Overview (01/14/2015): Rotator cuff tear Abdominal pain, chronic, left lower quadrant Overview (06/10/2020): thought by Dr. Hoffman to be a consequence of spinal fusion (anterior approach) Nephrolithiasis Overview (05/08/2021): bilateral, Seen by Dr Sims at [facility] Assessment & Plan (09/28/2024 10:42 AM EST): Counseled patient on taking contrary time lemonade to help reduce the likelihood of buildup of calcium oxalate stones. Assessment & Plan (05/29/2022 10:55 AM EDT): Probably the cause of the microhematuria, will reassess the u/a and see if anything different PTSD (post-traumatic stress disorder) Hypertension Overview (11/30/2021): Echo 01/06/10 revealed minimal fibrocalcific changes to the anterior leafklet of the mitral valve prolapse; left ventricular relaxation, raising the possibility of hypertension, minimal increase pulmonary pressures with mild pulmonary hypertension. Assessment & Plan (10/30/2024 12:54 PM EST): Previously well-managed. Elevated reading today, Kaylyn is in significant pain. Will continue to monitor at home where BP has been at baseline. Assessment & Plan (09/28/2024 10:41 AM EST): Blood pressure well-controlled continue the antihypertensive and will recheck electrolytes kidney function today. Assessment & Plan (10/09/2023 3:51 PM EST): Encouraging the patient to check blood pressure daily for the next 20 days at home and then report back to us. She is on Cozaar 100 so we will see if that is adequate, could be office HTN. Assessment & Plan (05/29/2022 10:53 AM EDT): Hypertension well controlled with current listed antihypertensives. Denies side effects No change to dosing. Low Sodium diet reinforced. Continue to monitor condition. Anxiety Resolved Problems Problem Noted Date Diagnosed Date Resolved Date Palpitations 04/28/2020 05/29/2022 Premature atrial contractions 12/25/2019 05/29/2022 Malignant neoplasm of breast in female, estrogen receptor positive 01/27/2018 05/08/2021 Cancer Staging:Clinical stage from 10/25/1995:Stage IA(T1c(m), N0, M0) - Signed by Apple Talavera MD on 01/27/2018 Encounters Date Type Department Care Team Description 03/30/2025 Orders Only [facility] Internal Medicine [address] [place] [address] ProviderAvelino MD 03/26/2025 11:20 AM EDT Office Visit [facility] [address] [place] [address] Dia Álvarez PA-C Pneumonia of right lower lobe due to infectious organism (Primary Dx) 03/23/2025 2:27 PM EDT - 03/23/2025 11:59 PM EDT Hospital Encounter [facility], X-Ray - [address] [place] [address] Dia Álvarez PA-C Discharge Disposition: Home or Self Care 03/23/2025 1:00 PM EDT Office Visit [facility] [address] [place] [address] Dia Álvarez PA-C Acute upper respiratory infection (Primary Dx); Thrush; Pneumonia of right middle lobe due to infectious organism; Pneumonia of right lower lobe due to infectious organism 03/23/2025 Telephone [facility] [address] [place] [address] Sabrina Talavera PA-C Results (After hours call); pneumonia 03/23/2025 Telephone [facility] Internal [facility] [address] [place] [address] Sergey Tyson MD Results 03/23/2025 Telephone [facility] Internal [facility] [address] [place] [address] Sergey Tyson MD Cough 03/18/2025 Telephone [facility] [address] [place] [address] Sergey Tyson MD Speech Referral 03/18/2025 Telephone [facility] [address] [place] [address] Sergey Tyson MD Referral (Gastroenterology) 02/11/2025 Refill [facility] [address] [place] [address] Sergey Tyson MD Medication Refill 01/20/2025 Refill [facility] [address] [place] [address] Sergey Tyson MD Medication Refill 12/31/2024 Telephone [facility] [address] [place] [address] Sergey Tyson MD Results from Last 3 Months Immunizations Name Administration Dates Next Due COVID-19 (Pre-09/16) Pfizer Vaccine, mRNA, PF 02/21/2021,01/31/2021 COVID-19, Unspecified Formulation 11/07/2022 [id number] FORMULATION 10/07/2009 Influenza Quadrivalent MDCK Preservative Free IM 08/30/2022,08/26/2019,09/13/2017 Influenza Quadrivalent Prese rvative Free IM 09/08/2023,09/06/2021,08/09/2020 Influenza Quadrivalent w/ Pr eservative IM 09/13/2018 Influenza Trivalent MDCK Pre servative Free IM 10/28/2024 Influenza Trivalent Preserva tive Free IM 10/20/2016 Influenza, Unspecified Formulation 08/03,09/25/2010,08/31/2009,09/22,09/04/2007,10/11/2006,09/25/2005 ,09/30/2003 Pneumococcal conjugate PCV13 01/26/2016 Pneumococcal polysaccharide PPSV23 03/18/2017 Tdap 06/15/2013 Zoster live 08/18/2012 Family History Medical History Relation Comments Coronary artery disease Brother 1 Heart failure Brother 1 cigarette smoker Stroke Brother 2 Polycystic kidney disease Child 1 from t heir father Polycystic kidney disease Child 2 from t heir father, also had a renal transplant Thyroid disease Daughter Prostate cancer Maternal Grandfather Hypertension Maternal Grandmother Migraines Maternal Grandmother Stroke Maternal Grandmother Diabetes mellitus Mother Heart attack Mother smoker Hypertension Mother Migraines Mother Ulcers Mother reportedly had e levated iron level Aortic aneurysm Neg Hx abdominal Breast cancer Neg Hx Colon cancer Neg Hx Relation Status Comments Brother 1 Brother 2 Child 1 Child 2 Daughter Parathyroid Maternal Grandfather Maternal Grandmother Mother (Age 73) bleeding ulcer Social History Tobacco Use Types Packs/Day Years Used Date Smoking Tobacco: Former Cigarettes 1.5 7 1 964 - 1970 Smokeless Tobacco: Never Tobacco Cessation:Counseling Given: Not Answered Comments:quit 1970 Alcohol Use Standard Drinks/Week Comments [...] Orientation Straight 05/05/2021 9: 10 PM EDT Last Filed Vital Signs Vital Sign Reading [...] Mass Index 19.16 03/26/2025 11:30 AM EDT Plan of Treatment Upcoming Encounters Date Type Department Care Team (Late st Contact Info) Description 03/18/2024 Procedure Pass [address] [address] 04/13/2025 9:00 AM EDT Appointment [facility] Internal Medicine [address] [place] [address] Sergey Tyson MD [address] [place] [address] 04/21/2025 3:00 PM EDT Appointment [address] [address] Apple Talavera MD [address] [place] [id number] 04/27/2025 8:30 AM EDT Office Visit [facility] at [address] [address] Apple Talavera MD [address] [place] [id number] Health Maintenance Due Date Last Done Comments COLOGUARD 1995 FOBT 1995 SIGMOIDOSCOPY 1995 VIRTUAL COLONOSCOPY 1995 RSV VACCINE (1 - Risk 60-74 years 1-dose series) 2010 ZOSTER VACCINES (1 of 2) 10/13/2012 08/18/2012 Adult Td,Tdap Booster 06/15/2023 06/15/2013 COVID-19 VACCINE ( season) 2024 08/24/2023, 11/07/2022, 11/07/2022, Additional history exists FIT TEST 03/04/2025 03/04/2024 DEPRESSION SCREENING 09/11/2025 09/11/2024, 09/11/20 BLOOD PRESSURE 09/26/2025 03/26/2025 TSH LEVEL 09/28/2025 09/28/2024, 03/25, 12/20/2023, Additional history exists CREATININE LEVEL 10/30/2025 10/30/2024, 02/2024, 04/10/2024, Additional history exists POTASSIUM LEVEL 10/30/2025 10/30/2024, 11/0 02/2024, 04/10/2024, Additional history exists MAMMOGRAM 03/12/2026 03/12/2024 LIPID PANEL 05/11/2026 05/11/2021, 05/11/2021 COLONOSCOPY 09/13/2032 09/13/2022, 04/20/2021 COLORECTAL CANCER SCREENING 09/13/2032 PNEUMOCOCCAL VACCINES (50+ years) Completed 03/18/2017, 01/26/2016 HEPATITIS C SCREENING Completed 05/11/2021, 021 OSTEOPOROSIS SCREENING INITIAL (ONE-TIME) Completed 05/02/2024, 01/29/2020, 02/08/2016 SMOKING STATUS SCREENING (Once After 26 Yrs) Completed 03/26/2025 HEPATITIS A VACCINES Aged Out No long er eligible based on patient's age to complete this topic HIB VACCINES Aged Out No longer eligi ble based on patient's age to complete this topic MENINGOCOCCAL VACCINES (ACWY) Aged Out No longer eligible based on patient's age to complete this topic Medical Devices Implanted Type Area Steam Fitter Helper Device Identifier Shelf Expiration Date Model / Serial / Lot [id number] Screws Left Breast Silicone Implant Left Middle And Ring Finger Joint Replacemtents Cervical C5,6,7 Fusion And L5-S1 Procedures Procedure Name Priority Date/Time Associated Diagnosis Comments OUTSIDE US ABDOMEN REPORT ONLY Routine 03/30/2025 12:37 PM EDT OUTSIDE XR??CHEST REPORT ONLY Routine 03/30/2025 11:37 AM EDT XR CHEST PA AND LATERAL 2 VIEWS Routine 03/23/2025 2:51 PM EDT Acute upper respiratory infection POCT COVID-19 RT-PCR/INFLUENZA A & B/RSV CEPHEID Routine 03/23/2025 1:10 PM EDT COMPREHENSIVE METABOLIC PANEL Routine 10/30/2024 9:57 AM EST Epigastric pain TSH WITH REFLEX Routine 09/28/2024 10:59 AM EST Postablative hypothyroidism BD DXA MONITORING Routine 05/02/2024 10: 14 AM EDT Osteopenia of lumbar spine HC BLOOD OCCULT FECAL HGB DETER IA QUAL FECES 1-3 Routine 03/04/2024 9:15 PM EDT Change in stool ENDOSCOPY, COLON 09/13/2022 11:5 8 AM EDT LIPID PANEL Routine 05/11/2021 9:13 AM EDT Screening, lipid HEPATITIS C ANTIBODY, QUALITATIVE Routine 05/11/2021 9:13 AM EDT Routine general medical examination at a health care facility from Last 3 Months or Most Recently Relevant to Health Maintenance Results * Outside US Abdomen Report Only (03/30/2025 12:37 PM EDT) Historical Provider MD BODNS US ABDOMEN * Outside XR??Chest Report Only (03/30/2025 11:37 AM EDT) Historical Provider MD BONDS XR CHEST * XR CHEST PA AND LATERAL 2 VIEWS (03/23/2025 2:51 PM EDT) MGB IMG OBJECT ORIENTED DEVELOPER 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 Follow-up to resolution advised. [facility] Anatomical Region Laterality Modality Chest Computed Radiogr aphy 03/23/2025 3:08 PM EDT Impressions 03/23/2025 3:11 PM EDT 1. ??Patchy opacities in the medial right lower lung raises suspicion for pneumonia in the correct clinical scenario. 2. ??After treatment, follow-up to complete resolution and 6-10 weeks or as clinically appropriate is recommended. If symptoms persist, chest CT follow-up advised. A clinically significant result was initiated on 03/23/2025 3:11 PM, Message ID [id number]. Narrative 03/23/2025 3:11 PM EDT XR CHEST PA AND LATERAL 2 VIEWS Referring clinician's provided indication for this examination in Epic: Cough COMPARISON: None available FINDINGS: Devices/Tubes/Lines: Lower cervical spine fusion hardware Lungs: Patchy opacity at the right lung base. Pleura: No pleural effusion or pneumothorax. Heart/Mediastinum: Within normal limits. Bones/Soft Tissues: Left breast implant with calcification obscures visualization of the left midlung on the frontal view. Procedure Note Berto Guerra MD - 03/23/2025 XR CHEST PA AND LATERAL 2 VIEWS Referring clinician's provided indication for this examination in Epic:Cough COMPARISON: None available FINDINGS: Devices/Tubes/Lines: Lower cervical spine fusion hardware Lungs: Patchy opacity at the right lung base. Pleura: No pleural effusion or pneumothorax. Heart/Mediastinum: Within normal limits. Bones/Soft Tissues: Left breast implant with calcification obscuresvisualization of the left midlung on the frontal view. IMPRESSION: 1. Patchy opacities in the medial right lower lung raises suspicion forpneumonia in the correct clinical scenario. 2. After treatment, follow-up to complete resolution and 6-10 weeks or asclinically appropriate is recommended. If symptoms persist, chest CTfollow-up advised. A clinically significant result was initiated on 03/23/2025 3:11 PM,Message ID [id number]. Dia Álvarez PA-C IMG XR CHEST * POCT COVID-19 RT-PCR/Influenza A & B/RSV (Cepheid) (03/23/2025 1:10 PM EDT) Pathologist [facility] RSV PCR Negative Negative [facility] SARS-CoV-2 (COVID-19) Negative Negative [facility] Influenza A PCR Negative Negative [facility] Influenza B PCR Negative Negative [facility] 03/23/2025 1:10 PM EDT 03/23/2025 1:51 PM EDT Dia Álvarez PA-C POINT OF CARE TEST O RDERABLES Performing Organization Address City/State/[facility] Co de Phone Number [facility] [address] [phone] * (ABNORMAL) Comprehensive metabolic panel (10/30/2024 9:57 AM EST) Pathologist [facility] SODIUM 140 133 - 146 mmol/L [facility] POTASSIUM 4.3 3.3 - 5.1 mmol/L [facility] CHLORIDE 104 96 - 108 mmol/L [facility] CO2 27 21 - 35 mmol/L [facility] BUN 23(H) 6 - 19 mg/dL [facility] CREATININE 0.90 0.5 - 1.5 mg/dL [facility] GLUCOSE 92 70 - 99 mg/dL [facility] ALBUMIN 4.3 3.9 - 4.8 g/dL [facility] TOTAL PROTEIN 6.9 6.5 - 8.0 g/dL [facility] CALCIUM 9.3 8.4 - 10.3 mg/dL [facility] ALKALINE PHOSPHATASE 91 39 - 117 U/L [facility] TOTAL BILIRUBIN 0.3 0.0 - 1.2 mg/dL [facility] AST 20 0 - 37 U/L [facility] ALT 9 0 - 40 U/L [facility] GLOBULIN 2.6 1 - 4.8 g/dL [facility] EGFR 67 >59 mL/min/1.7 3m2 [facility] Comment:Estimated glomerular filtration rate calculated using the CKD-EPI refit equation. ANION GAP 13 10 - 20 mmol/L [facility] Blood 10/30/2024 9:57 AM EST 10/30/2024 10:02 AM EST Rachael Alberts [facility] LAB BLOOD ORDE RABLES Performing Organization Address [facility] Co de Phone Number [address] [address] * TSH with reflex (09/28/2024 10:59 AM EST) TSH 0.91 0.27 - 4.20 uIU/mL [facility] Blood 09/28/2024 10:5 9 AM EST 09/28/2024 11:00 AM EST Sergey Tyson MD LAB BLOOD ORDERABLES Performing Organization Address [facility] de Phone Number [address] [address] * DXA Monitoring (05/02/2024 10:14 AM EDT) Anatomical Region Laterality Modality Bone Density Bone Density Sergey Tyson MD IMG BD BONE DENSITY DEXA * Fecal immunochemical test x1 (FIT) (03/04/2024 9:15 PM EDT) Immuno Fecal Occult Negative Negative [facility] Stool (Stool) 03/04/2024 9:1 5 PM EDT 03/06/2024 10:00 AM EDT Adan Hoffman MD BODY FLUIDS AND ST OOLS ORDERABLES Performing Organization Address [facility] Co de Phone Number [address] [address] * ENDOSCOPY, COLON (09/13/2022 11:58 AM EDT) Narrative Transcriptions Adan Hoffman MD - 09/13/2022 11:58 AM EDT Patient Name: Kaylyn Babak Attending MD:: ADAN HOFFMAN MD Procedure Date: 09/13/2022 11:58AM Date of : 1950 Age: 72 Admit Type: Outpatient Gender: Female Room: [place] [address] Referring MD: Sergey Tyson MD Exam Type: Colonoscopy Indications: High risk colon cancer surveillance: Personalhistory of multiple colonic polyps Medications: Propofol per Anesthesia Procedure: Informed consent was obtained from the patientafter discussion of the indications, limitations, alternatives, benefits, and risks of the procedure. Risks specifically discussed include but are not limited to medication reactions, missed lesions, bleeding, perforation, or the need for emergent surgery. Throughout the procedure, the patient's blood pressure, pulse, end-tidal CO2, and oxygensaturations were monitored continuously. The Olympus pediatric variable colonoscopePCF-[id number] #1 was introduced through the anus and advanced tothe cecum, identified by appendiceal orifice andileocecal valve. The ileocecal valve, appendiceal orifice,and rectum were photographed. The colonoscopy wassomewhat difficult due to poor endoscopic visualization, restricted mobility of the colon and significant looping. Successful completion of the procedure was aided by applying abdominal pressure. The patient tolerated the procedure well. The quality of thebowel preparation was adequate. The bowel preparationused was PEG/Miralax in Gatoraide and/or Pedialyte via split dose instruction. Complications: No immediate complications. Estimated blood loss:None. Findings: The digital rectal exam was normal. Hemorrhoids were found on perianal exam. The retroflexed view of the distal rectum and anal verge was normal and showed no anal or rectal abnormalities. A few small-mouthed diverticula were found in the sigmoid colon. There are tight, fixed turns in the sigmoidcolon. The colon (entire examined portion) wassignificantly redundant. Five sessile polyps were found in the distal transverse colon and distal ascending colon. The polyps were small in size. These polyps wereremoved with a cold snare. Resection and retrieval were complete. A diminutive polyp was found in the cecum. Thepolyp was removed with a cold biopsy forceps. Resectionand retrieval were complete. Attempt was made to retroflex the scope in the ascending colon for further visualization but thiswas not easily accomplished and the effort aborted. A second careful survey of the ascending colon wasmade on forward viewing, instead. Impression: - Hemorrhoids found on perianal exam. - The distal rectum and anal verge are normal on retroflexion view. - Redundant colon. - Five small polyps in the distal transverse colonand in the distal ascending colon, removed with a cold snare. Resected and retrieved. - One diminutive polyp in the cecum, removed with a cold biopsy forceps. Resected and retrieved. Recommendation: - Repeat colonoscopy in 3 years for surveillance. ADAN HOFFMAN MD 09/13/2022 12:50:13 PM This report has been signed electronically. Number of Addenda: 0 Note Initiated On: 09/13/2022 11:58 AM Procedure Code(s): --- Professional --- 61568, Colonoscopy, flexible; with removal of tumor(s), polyp(s), or other lesion(s) by snare technique 53729, 59, Colonoscopy, flexible; with biopsy, single or multiple --- Technical --- 68926, Colonoscopy, flexible; with removal of tumor(s), polyp(s), or other lesion(s) by snare technique 48693, 59, Colonoscopy, flexible; with biopsy, single or multiple Diagnosis Code(s): --- Professional --- K63.5, Polyp of colon Z86.010, Personal history of colonic polyps K64.9, Unspecified hemorrhoids Q43.8, Other specified congenital malformations of intestine --- Technical --- K63.5, Polyp of colon Z86.010, Personal history of colonic polyps K64.9, Unspecified hemorrhoids Q43.8, Other specified congenital malformations of intestine CPT copyright 2020 [employer]. All rights reserved. The codes documented in this report are preliminary and upon shake backboard notcher reviewmay be revised to meet current compliance requirements. Procedure Date: 09/13/2022 11:58:[address] [place] [address] Sergey Tyson MD GI PROCEDURE ORDERAB LES * Hepatitis C antibody, qualitative (05/11/2021 9:13 AM EDT) HCV NON-REACTIV E NON-REACTI VE [facility] Blood 05/11/2021 9:13 AM EDT 05/11/2021 9:19 AM EDT Adan Lyons MD LAB BLOOD ORDERABL ES [facility] [address] [place] [address] * (ABNORMAL) Lipid panel (05/11/2021 9:13 AM EDT) HDL 68 mg/dL [facility] Comment: ? Interpretation <40 mg/dL: Low HDL cholesterol (major risk factor for CHD) Greater than or equal to 60 mg/dL: High HDL cholesterol ( negative risk factor for CHD) HDL - cholesterol is affected by a number of factors, e.g. smoking, excerise, hormones, sex and age. CHOLESTEROL 217 0 - 240 mg/dL [facility] TRIGLYCERIDES 113 30 - 160 mg/dL [facility] LDL 126 50 - 129 mg/dL [facility] Comment: LDL levels in terms of risk for coronary heart disease: <100 mg/dL: Optimal 100-129 mg/dL: Near or above optimal 130-159 mg/dL: Borderline high 160-189 mg/dL: High >190 mg/dL: Very High CARDIAC RISK RATIO 3.2(L) 3.3 - 4.4 [facility] Blood 05/11/2021 9:13 AM EDT 05/11/2021 9:19 AM EDT Adan Lyons MD LAB BLOOD ORDERABL ES [facility] [address] [place] [address] from Last 3 Months or Most Recently Relevant to Health Maintenance Care Teams Claims Agent Right Of Way Relationship Specialty Start Date End Date Sergey Tyson MD [address] [place] [address] [email or web address] PCP - General Internal Medicine 05/10/22 Omar Rocha MD [email or web address] Physical Medicine and Rehabilitation 05/08/21 Sagar Leung MD [address] [place] [address], [facility] [address] [place] [address] [email or web address] Obstetrics and Gynecology 05/08/21 Yefri Hilliard MD [address] [place] [address] Endocrinology 05/08/21 Adan Hoffman MD [address] [place] [address] [email or web address] Gastroenterology 02/27/22 Apple Talavera MD [address] [place] [address] [email or web address] Primary Oncologist Medical Oncology 02/19/23 Sergey Tyson MD [address] [place] [address] [email or web address] Insurance Assigned Provider 02/29/24 Additional Source Comments The information contained in this document represents components of the legal health record. It is not the complete legal health record.[facility]
--- OUTSIDE RECORDS SUMMARY | 2025-03-30 13:00 | XMS_ITS | Encounter Summary ---
Author Organization Located Within [facility] Address [facility] [address] [place] [address] Phone Care Team Providers Care Auto Parts Handler Name Role Phone Karlos Lyons MD Unavailable [phone] Omar Rocha MD Unavailable Sagar Leung MD Unavailable Karlos Lyons MD Primary Care Provider [phone] Yefri Hilliard MD Unavailable Karlos Murry MD Unavailable [phone] Sergey Tyson MD Primary Care Provider [phone] Apple Talavera MD Unavailable [phone] Sergey Tyson MD Unavailable Mena Mcwilliams RN Unavailable [phone] Encounter Details Date Type Department Care Team (Late st Contact Info) Description 05/07/2022 Procedure Pass [facility], Ct Scan - [address] [address] Social History Tobacco Use Types Packs/Day Years [...] high school, GED, job training, learning the Nauruan language, technical skills, or developing parenting skills)? [...] st Contact Info) Description 03/18/2024 Procedure Pass [facility] [address] [place] [address] 04/13/2025 9:00 AM EDT Appointment [facility] Internal Medicine [address] [place] [address] Sergey Tyson MD [address] [place] [address] [email or web address] 04/21/2025 3:00 PM EDT Appointment [facility], [address] [address] Apple Talavera MD [address] [place] [email or web address] 04/27/2025 8:30 AM EDT Office Visit [facility] at [address] [address] Apple Talavera MD [address] [place] [address] [email or web address] documented as of this encounter Visit Diagnoses Not on filedocumented in this encounter Additional Health Concerns Infection Onset Date Last Indicated Resolved Time CoV-Risk 05/07/2022 05/07/2022 05/18/2022 1:24 AM EDT Assessment Noted Time PHQ-2 Depression Total Score: 2 05/05/20 10:17 AM EDT documented as of this encounter Care Teams Auto Parts Handler Relationship Specialty Start Date End Date Karlos Lyons MD [address] [place] [address] [email or web address] PCP - General Internal Medicine 05/08/21 05/09/22 Sergey Tyson MD [address] [place] [address] [email or web address] PCP - General Internal Medicine 05/10/22 Karlos Lyons MD [address] [place] [address] [email or web address] Insurance Assigned Provider 02/23/17 03/02/23 Omar Rocha MD [address] [place] [address] [address] [place] [address] [email or web address] Physical Medicine and Rehabilitation 05/08/21 Sagar Leung MD [address] [facility], [address] [place] [address] Obstetrics and Gynecology 05/08/21 Yefri Hilliard MD [address] [place] [address] Endocrinology 05/08/21 Karlos Murry MD [address] [place] [address] Gastroenterology 02/27/22 Apple Talavera MD [address] [place] [address] Primary Oncologist Medical Oncology 02/19/23 Sergey Tyson MD [address] [place] [address] Insurance Assigned Provider 02/29/24 Mena Mcwilliams, RN [address] [place] [address] [email or web address] Tender 11/13/23 12/11/23 documented as of this encounter Additional Source Comments The information contained in this document represents components of the legal health record. It is not the complete legal health record.[facility]
--- OUTSIDE RECORDS SUMMARY | 2025-03-30 13:00 | XMS_ITS | Encounter Summary ---
Author Organization [facility] Address [address] [facility] [address] [place] [address] Phone Care Team Providers Care Chemical Educator Name Role Phone Omar Rocha MD Unavailable Sagar Leung MD Unavailable Yefri Hilliard MD Unavailable Karlos Murry MD Unavailable Sergey Tyson MD Primary Care Provider Apple Talavera MD Unavailable Sergey Tyson MD Unavailable Reason for Visit * Reason Onset Date Comments Results 03/23/2025 After hours call pneumonia 03/23/2025 Encounter Details Date Type Department Care Team (Late st Contact Info) Description 03/23/2025 Telephone [facility] [address] [employer] [address] [place] [address] Sabrina Talavera PA-C [address] [employer] [address] [place] [address] [email or web address] Results (After hours call); pneumonia Social History Tobacco Use Types Packs/Day Years [...] food would run out Not on file 05/15 /2024 In the past 12 months have y ou been in a relationship with a person who hurts, threatens, or tries to control you? No 04/08/2024 Sex and Gender Information Value Date Recorded Sex Assigned at Female 05/05/2021 9:10 PM EDT Gender Identity Female 03/19/2021 10:12 AM EDT Sexual Orientation Straight 05/05/2021 9: 10 PM EDT documented as of this encounter Progress Notes * Mildred Galeano RN - 03/30/2025 9:40 AM EDT Images from the original note were not included. Sergey Tyson MD [facility] Yessy Rn2 minutes ago (9:37 AM) BS Agree with the advice given to her regarding ER * Kacy Altman RN - 03/30/2025 8:34 AM EDT Kaylyn called reporting worsening symptoms. She is very fatigued and feels terrible. She feels like she is worsening rather than improving. I advised her to go to the ER for evaluation based on how she sounds and her report. She will call for an ambulance. * Kacy Altman RN - 03/26/2025 10:16 AM EDT Spoke to Kaylyn and scheduled at 11:20 am today with Jake. * Mariangel Berry - 03/26/2025 9:38 AM EDT Patient called states she does not feel well still and is not able to come into office - states is using the mucinex and still is not getting anything to come up - and she would like to speak with someone about when she may start to feel better as what is a normal timeline to feel better - please advise [phone] * Kacy Altman RN - 03/25/2025 9:10 AM EDT Spoke to Kaylyn and she will try mucinex and increase her fluids. She call back if this does not help. * Mariangel Berry - 03/25/2025 9:01 AM EDT Patient called states she can not get a big enough breath to cough up the congestion in her lungs and is questioning if an inhaler would help and if so could one be called into pharmacy - please advise [phone] * Kacy Altman RN - 03/24/2025 8:46 AM EDT Spoke to Kaylyn and advised. She picked up the antibiotic last night and started it. She feels 35% better already. She may call back for a work excuse note. * Kacy Altman RN - 03/24/2025 8:44 AM EDT Images from the original note were not included. Dia Álvarez PA-C P Cmkurt Krishnamurthy Rn Patient's chest x-ray noting right lower lobe pneumonia, discussed with Dr. Tyson she has an extensive allergy list. Will send in for clarithromycin x 7 days. Common side effects are GI upset and headache. I attempted to call the patient regarding the results of her chest x-ray as it is after hours, she did not answer the phone so a voicemail was left for her to call the office. * Madeline Posey - 03/24/2025 8:41 AM EDT Patient returning call. * Sabrina Talavera PA-C - 03/23/2025 6:14 PM EDT After Hours Call Note 03/23/2025 6:14 PM Caller: Patient Chief complaint: RETURNING A MISSED CALL REG:CHEST XRAY RESULTS & WAS TOLD TO: CALL BACK,CANT REMOVE BLOCK PLS TEXT W/NUMBER TO CALL BACK. TO LEAVE MESSAGE TO INFORM YOU THAT SHE WILL BE CALLING AT 8AM TO TRY TO GET AN APPT TO BE SEEN. Plan: Called patient multiple times however goes right to [facility] to call back and provide alternate number. Medications prescribed: None documented in this encounter Plan of Treatment Upcoming Encounters Date Type Department Care Team (Late st Contact Info) Description 03/18/2024 Procedure Pass [address] [address] 04/13/2025 9:00 AM EDT Appointment [facility] Internal Medicine [address] [place] [address] Sergey Tyson MD [address] [place] [address] 04/21/2025 3:00 PM EDT Appointment [address] [address] Apple Talavera MD [address] [place] [address] 04/27/2025 8:30 AM EDT Office Visit [facility] at [address] [address] Apple Talavera MD [address] [place] [address] [email or web address] documented as of this encounter Visit Diagnoses Not on filedocumented in this encounter Additional Health Concerns Assessment Noted Time PHQ-9 Depression Total Score: 3 09/11/20 24 9:24 AM EDT PHQ-2 Depression Total Score: 1 09/11/20 24 9:24 AM EDT documented as of this encounter Care Teams Chemical Educator Relationship Specialty Start Date End Date Sergey Tyson MD [address] [place] [phone] [email or web address] PCP - General Internal Medicine 05/10/22 Omar Rocha MD [email or web address] Physical Medicine and Rehabilitation 05/08/21 Sagar eLung MD [address] [address] [email or web address] Obstetrics and Gynecology 05/08/21 Yefri Hilliard MD [address] [place] [address] Endocrinology 05/08/21 Karlos Murry MD [address] [place] [address] Gastroenterology 02/27/22 Apple Talavera MD [address] [place] [address] Primary Oncologist Medical Oncology 02/19/23 Sergey Tyson MD [address] [place] [address] [email or web address] Insurance Assigned Provider 02/29/24 documented as of this encounter Additional Source Comments The information contained in this document represents components of the legal health record. It is not the complete legal health record.[facility]
--- OUTSIDE RECORDS SUMMARY | 2025-03-30 13:01 | XMS_ITS | Encounter Summary ---
Author Organization [facility] Address [address] [place] [address] [address] [place] [address] Phone Care Team Providers Care Automotive Engineering Teacher Name Role Phone Karlos Lyons MD Primary Care Provider Karlos Lyons MD Unavailable [phone] Omar Rocha MD Unavailable [phone] Sagar Leung MD Unavailable Karlos Lyons MD Primary Care Provider + [phone] Yefri Hilliard MD Unavailable [phone] Karlos Murry MD Unavailable [phone] Sergey Tyson MD Primary Care Provider Apple Talavera MD Unavailable [phone] Sergey Tyson MD Unavailable Mena Mcwilliams RN Unavailable [phone] Encounter Details Date Type Department Care Team (Late st Contact Info) Description 09/14/2017 Ancillary Orders [facility] [place] [address] [address] [place], [place] [phone] Apple Talavera MD [address] [place] [address] Abnormal findings on diagnostic imaging of breast Social History Tobacco Use Types Packs/Day Years [...] st Contact Info) Description 03/18/2024 Procedure Pass [address] [address] 04/13/2025 9:00 AM EDT Appointment [facility] Internal Medicine [address] [place] [address] Sergey Tyson MD [address] [place] [address] 04/21/2025 3:00 PM EDT Appointment [address] [address] Apple Talavera MD [address] [place] [address] [email or web address] 04/27/2025 8:30 AM EDT Office Visit [facility] at [address] [address] Apple Talavera MD [address] [place] [address] documented as of this encounter Visit Diagnoses Diagnosis Abnormal findings on diagnostic imaging of breast Other (abnormal) findings on radiological examination of breast documented in this encounter Additional Health Concerns Infection Onset Date Last Indicated Resolved Time CoV-Risk 05/07/2022 05/07/2022 05/18/2022 1:24 AM EDT documented as of this encounter Care Teams Automotive Engineering Teacher Relationship Specialty Start Date End Date Karlos Lyons MD [address] [address] [email or web address] PCP - General Internal Medicine 07/14/14 05/07/21 Karlos Lyons MD [address] [place] [address] [email or web address] PCP - General Internal Medicine 05/08/21 05/09/22 Sergey Tyson MD [address] [place] [address] [email or web address] PCP - General Internal Medicine 05/10/22 Karlos Lyons MD [address] [place] [address] [email or web address] Insurance Assigned Provider 02/23/17 03/02/23 Omar Rocha MD [address] [place] [address] [email or web address] Physical Medicine and Rehabilitation 05/08/21 Sagar Lenug MD [address] [place] [address], [address] [place] [address] [email or web address] Obstetrics and Gynecology 05/08/21 Yefri Hilliard MD [address] [place] [address] Endocrinology 05/08/21 Karlos Murry MD [address] [place] [address] [email or web address] Gastroenterology 02/27/22 Apple Talavera MD [address] [place] [address] [email or web address] Primary Oncologist Medical Oncology 02/19/23 Sergey Tyson MD [address] [place] [address] [email or web address] Insurance Assigned Provider 02/29/24 Mena Mcwilliams, RN [address] [place] [address] [email or web address] [employer] Outside Cutter 11/13/23 12/11/23 documented as of this encounter Additional Source Comments The information contained in this document represents components of the legal health record. It is not the complete legal health record.[facility]
--- OUTSIDE RECORDS SUMMARY | 2025-03-30 13:01 | XMS_ITS | Encounter Summary ---
Author Organization [facility] Address [address] [place], [place] [address] [place] [address] Phone Care Team Providers Care Mingle Operator Name Role Phone Karlos Lyons MD Primary Care Provider Karlos Lyons MD Unavailable [phone] Omar Rocha MD Unavailable [phone] Sagar Leung MD Unavailable Karlos Lyons MD Primary Care Provider + [phone] Yefri Hilliard MD Unavailable [phone] Karlos Murry MD Unavailable [phone] Sergey Tyson MD Primary Care Provider Apple Talavera MD Unavailable [phone] Sergey Tyson MD Unavailable Mena Mcwilliams RN Unavailable [phone] Encounter Details Date Type Department Care Team (Late st Contact Info) Description 08/19/2018 Ancillary Orders [facility] Internal Medicine [address] [place] [address] Karlos Lyons MD [address] [place] [address] [email or web address] Breast screening Social History Tobacco Use Types Packs/Day Years Used Date Smoking Tobacco: Former Cigarettes Smokeless Tobacco: Never Comments:Quit smokin11/25 Alcohol Use Standard Drinks/Week Comments No 0 [...] st Contact Info) Description 03/18/2024 Procedure Pass [address] [address] 04/13/2025 9:00 AM EDT Appointment [facility] Internal Medicine [address] [place] [address] Sergey Tyson MD [address] [place] [address] 04/21/2025 3:00 PM EDT Appointment [address] [address] Apple Talavera MD [address] [place] [address] 04/27/2025 8:30 AM EDT Office Visit [facility] at [address] [address] Apple Talavera MD [address] [place] [address] documented as of this encounter Visit Diagnoses Diagnosis Breast screening Breast screening, unspecified documented in this encounter Additional Health Concerns Infection Onset Date Last Indicated Resolved Time CoV-Risk 05/07/2022 05/07/2022 05/18/2022 1:24 AM EDT documented as of this encounter Care Teams Mingle Operator Relationship Specialty Start Date End Date Karlos Lyons MD [address] [address] [email or web address] PCP - General Internal Medicine 07/14/14 05/07/21 Karlos Lyons MD [address] [place] [address] [email or web address] PCP - General Internal Medicine 05/08/21 05/09/22 Sergey Tyson MD [address] [place] [address] [email or web address] PCP - General Internal Medicine 05/10/22 Karlos Lyons MD [address] [place] [address] [email or web address] Insurance Assigned Provider 02/23/17 03/02/23 Omar Rocha MD [address] [place] [address] [email or web address] Physical Medicine and Rehabilitation 05/08/21 Sagar Leung MD [address] [place] [address] [address] [place] [address] [email or web address] Obstetrics and Gynecology 05/08/21 Yefri Hilliard MD [address] [place] [address] Endocrinology 05/08/21 Karlos Murry MD [address] [place] [address] [email or web address] Gastroenterology 02/27/22 Apple Talavera MD [address] [place] [address] [email or web address] Primary Oncologist Medical Oncology 02/19/23 Sergey Tyson MD [address] [place] [address] [email or web address] Insurance Assigned Provider 02/29/24 Mena Mcwilliams, RN [address] [place] [address] [email or web address] iC[employer] Improvement Analyst 11/13/23 12/11/23 documented as of this encounter Additional Source Comments The information contained in this document represents components of the legal health record. It is not the complete legal health record.[facility]
--- OUTSIDE RECORDS SUMMARY | 2025-03-30 13:01 | XMS_ITS | Encounter Summary ---
Author Organization [facility] Address [facility] [address] [place] [address] Phone Care Team Providers Care Clinical Research Technician Name Role Phone Karlos Lyons MD Unavailable Omar Rocha MD Unavailable [phone] Sagar Leung MD Unavailable Karlos Lyons MD Primary Care Provider [phone] Yefri Hilliard MD Unavailable [phone] Karlos Murry MD Unavailable [phone] Sergey Tyson MD Primary Care Provider [phone] Apple Talavera MD Unavailable [phone] Sergey Tyson MD Unavailable Mena Mcwilliams RN Unavailable Encounter Details Date Type Department Care Team (Latest Contact Info) Description 11/13/2021 Transcribe Orders Virtual Department [address] [place], [place] [phone] Omar Rocha MD [address] [place] [address] [email or web address] Right foot pain (Primary Dx) Social History Tobacco Use [...] st Contact Info) Description 03/18/2024 Procedure Pass [address] [address] 04/13/2025 9:00 AM EDT Appointment [facility] Internal Medicine [address] [place] [address] Sergey Tyson MD [address] [place] [address] 04/21/2025 3:00 PM EDT Appointment [address] [address] Apple Talavera MD [address] [place] [address] 04/27/2025 8:30 AM EDT Office Visit [facility] at [address] [address] Apple Talavera MD [address] [address] [phone] documented as of this encounter Results * XR FOOT 3 OR MORE VIEWS (RIGHT) (11/23/2021 10:29 AM EST) Anatomical Region Laterality Modality Foot Right Computed Radiogr aphy 11/23/2021 10:3 8 AM EST Impressions 11/23/2021 10:41 AM EST 1.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 3.Osteopenia. Narrative 11/23/2021 10:41 AM EST COMPARISON: None. RIGHT FOOT RADIOGRAPH FINDINGS: 3 images obtained. Osteopenia. Severe first MTP joint space narrowing, articular sclerosis and osteophytes. Moderate second through fifth DIP joint space narrowing. Chronic distal fifth metatarsal shaft fracture deformity. Small retrocalcaneal spur. No erosions. No destructive or suspicious bone lesions. No soft tissue swelling. Procedure Note Raymond Todd MD - 11/23/2021 COMPARISON: None. RIGHT FOOT RADIOGRAPH FINDINGS: 3 images obtained. Osteopenia. Severe first MTP joint space narrowing, articular sclerosisand osteophytes. Moderate second through fifth DIP joint space narrowing.Chronic distal fifth metatarsal shaft fracture deformity. Smallretrocalcaneal spur. No erosions. No destructive or suspicious bonelesions. No soft tissue swelling. IMPRESSION: 1.Severe first MTP joint and second through fifth DIP jointosteoarthritis. 2.Retrocalcaneal enthesopathy. 3.Osteopenia. Omar Rocha MD IMG XR LOWER EX TREMITY documented in this encounter Visit Diagnoses Diagnosis Right foot pain- Primary Pain in soft tissues of limb Right foot pain Pain in soft tissues of limb documented in this encounter Additional Health Concerns Infection Onset Date Last Indicated Resolved Time CoV-Risk 05/07/2022 05/07/2022 05/18/2022 1:24 AM EDT Assessment Noted Time PHQ-2 Depression Total Score: 0 05/05/20 21 9:23 PM EDT documented as of this encounter Care Teams Clinical Research Technician Relationship Specialty Start Date End Date Karlos Lyons MD [address] [address] [email or web address] PCP - General Internal Medicine 05/08/21 05/09/22 Sergey Tyson MD [address] [place] [address] [email or web address] PCP - General Internal Medicine 05/10/22 Karlos Lyons MD [address] [place] [address] [email or web address] Insurance Assigned Provider 02/23/17 03/02/23 Omar Rocha MD [address] [place] [address] [email or web address] Medicine and Rehabilitation 05/08/21 Sagar Leung MD [address] [place] [address] [email or web address] Obstetrics and Gynecology 05/08/21 Yefri Hilliard MD [address] [place] [address] Endocrinology 05/08/21 Karlos Murry MD [address] [place] [address] [email or web address] Gastroenterology 02/27/22 Apple Talavera MD [address] [place] [address] [email or web address] Primary Oncologist Medical Oncology 02/19/23 Sergey Tyson MD [address] [place] [address] [email or web address] Insurance Assigned Provider 02/29/24 Mena Mcwilliams, RN [address] [place] [address] [email or web address] i[employer] Transfer Car Operator Drier 11/13/23 12/11/23 documented as of this encounter Additional Source Comments The information contained in this document represents components of the legal health record. It is not the complete legal health record.[facility]
--- OUTSIDE RECORDS SUMMARY | 2025-03-30 13:01 | XMS_ITS | Encounter Summary ---
Author Organization [facility] Address [facility] [address] [place] [address] Phone Care Team Providers Care Seafood Manager Name Role Phone Karlos Lyons MD Unavailable [phone] Omar Rocha MD Unavailable [phone] Sagar Leung MD Unavailable Karlos Lyons MD Primary Care Provider [phone] Yefri Hilliard MD Unavailable Karlos Murry MD Unavailable [phone] Sergey Tyson MD Primary Care Provider [phone] Apple Talavera MD Unavailable [phone] Sergey Tyson MD Unavailable Mena Mcwilliams RN Unavailable [phone] Encounter Details Date Type Department Care Team (Latest Contact Info) Description 10/25/2021 Transcribe Orders Virtual Department 30 [place], [place] [phone] Karlos Lyons MD [address] [phone] [email or web address] Breast screening (Primary Dx) Social History Tobacco Use Types [...] st Contact Info) Description 03/18/2024 Procedure Pass [address] [address] 04/13/2025 9:00 AM EDT Appointment [facility] Internal Medicine [address] [place] [address] Sergey Tyson MD [address] [place] [address] [email or web address] 04/21/2025 3:00 PM EDT Appointment [address] [address] Apple Talavera MD [address] [place] [address] 04/27/2025 8:30 AM EDT Office Visit [facility] Cancer Center at [address] [address] Apple Talavera MD [address] [place] [address] [phone] documented as of this encounter Results * BI MAMMOGRAM SCREENING WITH TOMOSYNTHESIS WITH CAD (RIGHT) (02/20/2022 10:12 AM EDT) Anatomical Region Laterality Modality Breast Right, Breast Bilateral Right M ammography 02/20/2022 6:36 PM EDT Impressions 02/20/2022 6:39 PM EDT No mammographic signs of malignancy. ??Annual screening is recommended. BI-RADS CATEGORY: ??2 - Benign finding. DENSITY: ??The breast tissue is heterogeneously dense, which could obscure a lesion on mammography. Narrative 02/20/2022 6:39 PM EDT Right screening mammography is performed in conjunction with computed aided detection. 3-D tomography along with 2-D C view imaging was also performed. Comparison made to previous dated as far back as 07/07/2015 and as recent as 01/23/2021. The patient is status-post left mastectomy for breast malignancy. No suspicious masses, areas of architectural distortion or suspicious microcalcifications. Diffuse microcalcifications are stable, the majority are within the skin. Procedure Note Hammad Anders MD - 02/20/2022 Right screening mammography is performed in conjunction with computedaided detection. 3-D tomography along with 2-D C view imaging was alsoperformed. Comparison made to previous dated as far back as 07/07/2015 andas recent as 01/23/2021. The patient is status-post left mastectomy for breast malignancy. No suspicious masses, areas of architectural distortion or suspiciousmicrocalcifications. Diffuse microcalcifications are stable, the majorityare within the skin. IMPRESSION: No mammographic signs of malignancy. Annual screening is recommended. BI-RADS CATEGORY: 2 - Benign finding. DENSITY: The breast tissue is heterogeneously dense, which could obscurea lesion on mammography. Karlos Lyons MD IMG MG EXAMS documented in this encounter Visit Diagnoses Diagnosis Breast screening- Primary Breast screening, unspecified Breast screening Breast screening, unspecified documented in this encounter Additional Health Concerns Infection Onset Date Last Indicated Resolved Time CoV-Risk 05/07/2022 05/07/2022 05/18/2022 1:24 AM EDT Assessment Noted Time PHQ-2 Depression Total Score: 0 05/05/20 21 9:23 PM EDT documented as of this encounter Care Teams Seafood Manager Relationship Specialty Start Date End Date Karlos Lyons MD [address] [place] [address] [email or web address] PCP - General Internal Medicine 05/08/21 05/09/22 eSrgey Tyson MD [address] [place] [address] [email or web address] PCP - General Internal Medicine 05/10/22 Karlos Lyons MD [address] [place] [address] [email or web address] Insurance Assigned Provider 02/23/17 03/02/23 Omar Rocha MD [address] [place] [address] [email or web address] Medicine and [email or web address] 05/08/21 Sagar Leung MD [address] [place] [address], [facility] [address] [place] [address] [email or web address] Obstetrics and Gynecology 05/08/21 Yefri Hilliard MD [address] [place] [address] Endocrinology 05/08/21 Karlos Murry MD [address] [place] [address] [email or web address] Gastroenterology 02/27/22 Apple Talavera MD [address] [place] [address] [email or web address] Primary Oncologist Medical Oncology 02/19/23 Sergey Tyson MD [address] [place] [address] [email or web address] Insurance Assigned Provider 02/29/24 Mena Mcwilliams, RN [address] [place] [address] [email or web address] [facility] 11/13/23 12/11/23 documented as of this encounter Additional Source Comments The information contained in this document represents components of the legal health record. It is not the complete legal health record.[facility]
--- OUTSIDE RECORDS SUMMARY | 2025-03-30 13:01 | XMS_ITS | Encounter Summary ---
Author Organization [facility] Address [address] [place] [address] [address] [place] [address] Phone Care Team Providers Care Patient Services Rep Name Role Phone Karlos Lyons MD Primary Care Provider Karlos Lyons MD Unavailable [phone] Omar Rocha MD Unavailable [phone] Sagar Leung MD Unavailable Karlos Lyons MD Primary Care Provider + [phone] Yefri Hilliard MD Unavailable [phone] Karlos Murry MD Unavailable [phone] Sergey Tyson MD Primary Care Provider [phone] Apple Talavera MD Unavailable [phone] Sergey Tyson MD Unavailable Mena Mcwilliams RN Unavailable [phone] Encounter Details Date Type Department Care Team (Late st Contact Info) Description 12/02/2017 Ancillary Orders [facility], X-Ray - [facility] [address] [place] [address] Omar Rocha MD [address] [place] [address] [email or web address] Pain of right forearm Social History Tobacco Use Types Packs/Day Years [...] st Contact Info) Description 03/18/2024 Procedure Pass [address] [address] 04/13/2025 9:00 AM EDT Appointment [facility] Internal Medicine [address] [place] [address] Sergey Tyson MD [address] [place] [address] 04/21/2025 3:00 PM EDT Appointment [address] [address] Apple Talavera MD [address] [place] [address] [phone] 04/27/2025 8:30 AM EDT Office Visit [facility] at [address] [address] Apple Talavera MD [address] [place] [address] [phone] documented as of this encounter Results * XR Forearm 2 Views (Right) (12/02/2017 1:32 PM EST) Anatomical Region Laterality Modality Forearm Right Radiographic Jade ging 12/02/2017 1:34 PM EST Impressions 12/02/2017 1:38 PM EST Mild medial right elbow soft tissue swelling with probable old medial epicondyle injury. The exam is otherwise unremarkable. No acute bony injury or bony displacement is seen. S/S: Pain after shoveling 2 weeks ago, lateral pain distal forearm ? POS - [id number] Narrative 12/02/2017 1:38 PM EST COMPARISON: Right elbow x-ray February 09, 2014 FINDINGS: 2 views of the right forearm are obtained. No acute bony injury or bony displacement is seen. No pleural effusion is suggested. There is mild soft tissue swelling evident related to the medial distal humerus epicondyle. An old avulsion injury this region is suggested. Procedure Note Sammy Tirado MD - 12/02/2017 COMPARISON: Right elbow x-ray February 09, 2014 FINDINGS: 2 views of the right forearm are obtained. No acute bony injury or bony displacement is seen. No pleural effusion is suggested. There is mild soft tissue swelling evident related to the medial distalhumerus epicondyle. An old avulsion injury this region is suggested. IMPRESSION: Mild medial right elbow soft tissue swelling with probable old medialepicondyle injury. The exam is otherwise unremarkable. No acute bonyinjury or bony displacement is seen. S/S: Pain after shoveling 2 weeks ago, lateral pain distal forearm POS - [id number] Omar Rocha MD IMG XR UPPER EX TREMITY documented in this encounter Visit Diagnoses Diagnosis Pain of right forearm Pain of right forearm documented in this encounter Additional Health Concerns Infection Onset Date Last Indicated Resolved Time CoV-Risk 05/07/2022 05/07/2022 05/18/2022 1:24 AM EDT documented as of this encounter Care Teams Patient Services Rep Relationship Specialty Start Date End Date Karlos Lyons MD [address] [place] [address] [email or web address] PCP - General Internal Medicine 07/14/14 05/07/21 Karlos Lyons MD [address] [place] [address] [email or web address] PCP - General Internal Medicine 05/08/21 05/09/22 Sregey Tyson MD [address] [place] [address] [email or web address] PCP - General Internal Medicine 05/10/22 Karlos Lyons MD [address] [place] [address] [email or web address] Insurance Assigned Provider 02/23/17 03/02/23 Omar Rocha MD [address] [place] [address] [email or web address] Physical Medicine and Rehabilitation 05/08/21 Sagar Leung MD [address] [place] [address], [address] [place] [address] [email or web address] Obstetrics and Gynecology 05/08/21 Yefri Hilliard MD [address] [place] [address] Endocrinology 05/08/21 Karlos Murry MD [address] [place] [address] [email or web address] Gastroenterology 02/27/22 Apple Talavera MD [address] [place] [address] [email or web address] Primary Oncologist Medical Oncology 02/19/23 Sergey Tyson MD [address] [place] [address] [email or web address] Insurance Assigned Provider 02/29/24 Mena Mcwilliams, RN [address] [place] [address] [email or web address] 11/13/23 12/11/23 documented as of this encounter Additional Source Comments The information contained in this document represents components of the legal health record. It is not the complete legal health record.[facility]
--- OUTSIDE RECORDS SUMMARY | 2025-03-30 13:01 | XMS_ITS | Encounter Summary ---
Author Organization [facility] Address [address] [place] [address] [address] [place] [address] Phone Care Team Providers Care Special Events Director Name Role Phone Omar Rocha MD Unavailable Sagar Leung MD Unavailable Yefri Hilliard MD Unavailable Karlos Murry MD Unavailable Sergey Tyson MD Primary Care Provider Apple Talavera MD Unavailable [phone] Sergey Tyson MD Unavailable Reason for Referral * Outpatient Procedure - Closed Specialty Diagnoses / Procedures Referred By Jessica balbuena Referred To Contact Radiology Diagnoses Weight loss Procedures US Abdomen Arteries Duplex Limited Karlos Murry MD [address] [place] [address] Email: [email or web address] Referral ID Status Reason Start Date Expiration Date Visits Re quested Visits Authorized [id number] Closed 02/03/2024 1 1 Encounter Details Date Type Department Care Team (Latest Contact Info) Description 02/03/2024 Transcribe Orders Virtual Department [address] [place] [address] Karlos Murry MD [address] [place] [address] Weight loss (Primary Dx) Social History Tobacco Use Types Packs/Day Years Used Date Smoking Tobacco: Former Cigarettes 1.5 7 1 - 1970 Smokeless Tobacco: Never Comments:quit 1970 [...] high school, GED, job training, learning the East [place]orese language, technical skills, or developing parenting skills)? [...] st Contact Info) Description 03/18/2024 Procedure Pass [address] [address] 04/13/2025 9:00 AM EDT Appointment [facility] Internal Medicine [address] [place] [address] Sergey Tyson MD [address] [place] [address] 04/21/2025 3:00 PM EDT Appointment [address] [address] Apple Talavera MD [address] [place] [address] 04/27/2025 8:30 AM EDT Office Visit [facility] at [address] [address] Apple Talavera MD [address] [place] [address] documented as of this encounter Results * US ABDOMEN ARTERIES AND VEINS DUPLEX LIMITED (MESENTERIC) (02/07/2024 8:37 AM EDT) Anatomical Region Laterality Modality Abdominal Vasculature Ultrasound 02/07/2024 8:29 AM EDT Impressions 02/07/2024 1:08 PM EDT Normal caliber aorta, celiac axis and superior mesenteric artery. No evidence of mesenteric ischemia. Narrative 02/07/2024 1:08 PM EDT Mesenteric arterial evaluation. INDICATIONS: Postprandial abdominal pain. Question mesenteric ischemia. TECHNIQUE: Duplex US of aorta, celiac axis and superior mesenteric artery. COMPARISON: No relevant vascular imaging available for comparison. FINDINGS: Color flow imaging and Doppler interrogation of aorta, celiac axis and superior mesenteric arteries show normal caliber, non-aneurysmal, nonstenotic aorta, celiac axis and SMA. Peak systolic flow velocity within the aorta 127 cm/s. Celiac axis flow velocities 202-238 cm/s below level considered significant. SMA flow velocities 183-220 cm/s. End diastolic velocities 58-68 cm/s within the celiac axis and 34-38 cm/s within the superior mesenteric artery. Procedure Note Omar Sheikh MD - 02/07/2024 Mesenteric arterial evaluation. INDICATIONS: Postprandial abdominal pain. Question mesenteric ischemia. TECHNIQUE: Duplex US of aorta, celiac axis and superior mesenteric artery. COMPARISON: No relevant vascular imaging available for comparison. FINDINGS: Color flow imaging and Doppler interrogation of aorta, celiac axis andsuperior mesenteric arteries show normal caliber, non-aneurysmal,nonstenotic aorta, celiac axis and SMA. Peak systolic flow velocity within the aorta 127 cm/s. Celiac axis flowvelocities 202-238 cm/s below level considered significant. SMA flowvelocities 183-220 cm/s. End diastolic velocities 58-68 cm/s within theceliac axis and 34-38 cm/s within the superior mesenteric artery. IMPRESSION: Normal caliber aorta, celiac axis and superior mesenteric artery. Noevidence of mesenteric ischemia. Karlos Murry MD IMG US ABDOMEN documented in this encounter Visit Diagnoses Diagnosis Weight loss- Primary Loss of weight Weight loss Loss of weight documented in this encounter Additional Health Concerns Assessment Noted Time PHQ-2 Depression Total Score: 0 01/28/20 23 6:26 PM EST documented as of this encounter Care Teams Special Events Director Relationship Specialty Start Date End Date Sergey Tyson MD [address] [place] [address] PCP - General Internal Medicine 05/10/22 Omar Rocha MD [email or web address] Physical Medicine and Rehabilitation 05/08/21 Sagar Leung MD [address] [place] [address], [address] [place] [address] [email or web address] Obstetrics and Gynecology 05/08/21 Yefri Hilliard MD [address] [place] [address] Endocrinology 05/08/21 Karlos Murry MD [address] [place] [address] [email or web address] Gastroenterology 02/27/22 Apple Talavera MD [address] [place] [address] Primary Oncologist Medical Oncology 02/19/23 Sergey Tyson MD [address] [place] [address] [email or web address] Insurance Assigned Provider 02/29/24 documented as of this encounter Additional Source Comments The information contained in this document represents components of the legal health record. It is not the complete legal health record.[facility]
--- OUTSIDE RECORDS SUMMARY | 2025-03-30 13:01 | XMS_ITS | Encounter Summary ---
Author Organization [facility] Address [facility] [address] [place] [address] Phone Care Team Providers Care Import Coordination And Production Head Name Role Phone Karlos Lyons MD Unavailable [phone] Omar Rocha MD Unavailable Sagar Leung MD Unavailable Yefri Hilliard MD Unavailable Karlos Murry MD Unavailable [phone] Sergey Tyson MD Primary Care Provider [phone] Apple Talavera MD Unavailable [phone] Sergey Tyson MD Unavailable Mena Mcwilliams RN Unavailable [phone] Encounter Details Date Type Department Care Team (Late st Contact Info) Description 02/27/2023 Procedure Pass [facility] [address] [place] [address] Social History Tobacco Use Types Packs/Day Years [...] high school, GED, job training, learning the Tongan language, technical skills, or developing parenting skills)? [...] basis, and looking for work? No 01/27/2023 Sex and Gender Information Value Date Recorded Sex Assigned at Female 05/05/2021 9:10 PM EDT Gender Identity Female 03/19/2021 10:12 AM EDT Sexual Orientation Straight 05/05/2021 9: 10 PM EDT documented as of this encounter Plan of Treatment Upcoming Encounters Date Type Department Care Team (Late st Contact Info) Description 03/18/2024 Procedure Pass [address] [address] 04/13/2025 9:00 AM EDT Appointment [facility] Internal Medicine [address] [place] [address] Sergey Tyson MD [address] [place] [address] [email or web address] 04/21/2025 3:00 PM EDT Appointment [facility], [address] [address] Apple Talavera MD [address] [place] [address] [email or web address] 04/27/2025 8:30 AM EDT Office Visit [facility] at [address] [address] Apple Talavera MD [address] [place] [address] [email or web address] documented as of this encounter Visit Diagnoses Not on filedocumented in this encounter Additional Health Concerns Assessment Noted Time PHQ-2 Depression Total Score: 0 01/28/20 23 6:26 PM EST documented as of this encounter Care Teams Import Coordination And Production Head Relationship Specialty Start Date End Date Sergey Tyson MD [address] [place] [address] [email or web address] PCP - General Internal Medicine 05/10/22 Karlos Lyons MD [address] [place] [address] [email or web address] Insurance Assigned Provider 02/23/17 03/02/23 Omar Rocha MD [address] [place] [address] [email or web address] Physical Medicine and Rehabilitation 05/08/21 Sagar Leung MD [address] [place] [address], [address] [place] [address] Obstetrics and Gynecology 05/08/21 Yefri Hilliard MD [address] [place] [address] Endocrinology 05/08/21 Karlos Murry MD [address] [place] [address] [email or web address] Gastroenterology 02/27/22 Apple Talavera MD [address] [place] [email or web address] Primary Oncologist Medical Oncology 02/19/23 Sergey Tyson MD [address] [place] [address] [email or web address] Insurance Assigned Provider 02/29/24 Mena Mcwilliams, RN [address] [place] [phone] [email or web address] Insurance Agent 11/13/23 12/11/23 documented as of this encounter Additional Source Comments The information contained in this document represents components of the legal health record. It is not the complete legal health record.[facility]
--- OUTSIDE RECORDS SUMMARY | 2025-03-30 13:01 | XMS_ITS | Encounter Summary ---
Author Organization [facility] Address Replaced by [facility] [employer] [facility] [address] [place] [address] Phone Care Team Providers Care Health Data Analyst Name Role Phone Omar Rocha MD Unavailable Sagar Leung MD Unavailable Yefri Hilliard MD Unavailable [phone] Karlos Murry MD Unavailable Sergey Tyson MD Primary Care Provider Apple Talavera MD Unavailable Sergey Tyson MD Unavailable Encounter Details Date Type Department Care Team (Latest Contact Info) Description 03/09/2024 Transcribe Orders Virtual Department [address] [place] [address] Omar Rocha MD [address] [place] [address] [email or web address] Thoracic spine pain (Primary Dx) Social History Tobacco Use [...] high school, GED, job training, learning the Trinidadian language, technical skills, or developing parenting skills)? [...] st Contact Info) Description 03/18/2024 Procedure Pass [facility], [address] [address] 04/13/2025 9:00 AM EDT Appointment [facility] Internal Medicine [address] [place] [address] Sergey Tyson MD [address] [place] [address] 04/21/2025 3:00 PM EDT Appointment [facility], [address] [address] Apple Talavera MD [address] [place] [address] 04/27/2025 8:30 AM EDT Office Visit [facility] at [address] [address] Apple Talavera MD [address] [place] [email or web address] documented as of this encounter Results * XR THORACIC SPINE 3 VIEW (03/16/2024 2:44 PM EDT) Anatomical Region Laterality Modality T-spine Computed Radiogr aphy 03/17/2024 1:41 AM EDT Impressions 03/17/2024 1:42 AM EDT Severe thoracic spine degenerative change. Narrative 03/17/2024 1:42 AM EDT XR THORACIC SPINE 3 VIEW REQUESTED INDICATION: Outside Radiology Order; thoracic spine pain COMPARISON: None FINDINGS: ALIGNMENT: Slight levoconvex curvature of the upper thoracic spine. VERTEBRAE: Bones demineralized. Vertebral body heights preserved. DISCS: Disc height loss and endplate sclerosis and marginal osteophytes at all levels. FACETS: Facets normally aligned. PARASPINAL SOFT TISSUES: Partially visualized cervical spine ACDF construct. Procedure Note Abdirahman Srivastava MD - 03/17/2024 XR THORACIC SPINE 3 VIEW REQUESTED INDICATION: Outside Radiology Order; thoracic spine pain COMPARISON: None FINDINGS: ALIGNMENT: Slight levoconvex curvature of the upper thoracic spine. VERTEBRAE: Bones demineralized. Vertebral body heights preserved. DISCS: Disc height loss and endplate sclerosis and marginal osteophytes atall levels. FACETS: Facets normally aligned. PARASPINAL SOFT TISSUES: Partially visualized cervical spine ACDFconstruct. IMPRESSION: Severe thoracic spine degenerative change. Omar Rocha MD IMG XR SPINE documented in this encounter Visit Diagnoses Diagnosis Thoracic spine pain- Primary Pain in thoracic spine Thoracic spine pain Pain in thoracic spine documented in this encounter Additional Health Concerns Assessment Noted Time PHQ-2 Depression Total Score: 0 01/28/20 23 6:26 PM EST documented as of this encounter Care Teams Health Data Analyst Relationship Specialty Start Date End Date Sergey Tyson MD [address] [place] [address] [email or web address] PCP - General Internal Medicine 05/10/22 Omar Rocha MD [email or web address] Physical Medicine and Rehabilitation 05/08/21 Sagar Leung MD [address] [place] [address] [address] [place] [address] Obstetrics and Gynecology 05/08/21 Yefri Hilliard MD [address] [place] [address] Endocrinology 05/08/21 Karlos Murry MD [address] [place] [address] [email or web address] Gastroenterology 02/27/22 Apple Talavera MD [address] [place] [address] [email or web address] Primary Oncologist Medical Oncology 02/19/23 Sergey Tyson MD [address] [place] [address] [email or web address] Insurance Assigned Provider 02/29/24 documented as of this encounter Additional Source Comments The information contained in this document represents components of the legal health record. It is not the complete legal health record.[facility]
--- OUTSIDE RECORDS SUMMARY | 2025-03-30 13:01 | XMS_ITS | Encounter Summary ---
Author Organization [facility] Address [facility] [address] [place] [address] Phone Care Team Providers Care Piece Marker [employer] Name Role Phone Karlos Lyons MD Unavailable [phone] Omar Rocha MD Unavailable Sagar Leung MD Unavailable Karlos Lyons MD Primary Care Provider Yefri Hilliard MD Unavailable Karlos Murry MD Unavailable [phone] Sergey Tyson MD Primary Care Provider [phone] Apple Talavera MD Unavailable [phone] Sergey Tyson MD Unavailable Mena Mcwilliams RN Unavailable [phone] Encounter Details Date Type Department Care Team (Late st Contact Info) Description 10/25/2021 Procedure Pass [address] [address] Social History Tobacco Use Types Packs/Day Years [...] st Contact Info) Description 03/18/2024 Procedure Pass [address] [address] 04/13/2025 9:00 AM EDT Appointment [facility] Internal Medicine [address] [place] [address] Sergey Tyson MD [address] [place] [address] 04/21/2025 3:00 PM EDT Appointment [address] [address] Apple Talavera MD [address] [place] [address] 04/27/2025 8:30 AM EDT Office Visit [facility] at [address] [address] Apple Talavera MD [address] [place] [address] [email or web address] documented as of this encounter Visit Diagnoses Not on filedocumented in this encounter Additional Health Concerns Infection Onset Date Last Indicated Resolved Time CoV-Risk 05/07/2022 05/07/2022 05/18/2022 1:24 AM EDT Assessment Noted Time PHQ-2 Depression Total Score: 0 05/05/20 9:23 PM EDT documented as of this encounter Care Teams Piece Marker [employer] Relationship Specialty Start Date End Date Karlos Lyons MD [address] [address] [email or web address] PCP - General Internal Medicine 05/08/21 05/09/22 Sergey Tyson MD [address] [place] [address] [email or web address] PCP - General Internal Medicine 05/10/22 Karlos Lyons MD [address] [place] [address] [email or web address] Insurance Assigned Provider 02/23/17 03/02/23 Omar Rocha MD [address] [place] [address] [email or web address] Physical Medicine and Rehabilitation 05/08/21 Sagar Leung MD [address] [place] [address] [email or web address] Obstetrics and Gynecology 05/08/21 Yefri Hilliard MD [address] [place] [address] Endocrinology 05/08/21 Karlos Murry MD [address] [place] [address] [email or web address] Gastroenterology 02/27/22 Apple Talavera MD [address] [place] [address] [email or web address] Primary Oncologist Medical Oncology 02/19/23 Sergey Tyson MD [address] [place] [address] [email or web address] Insurance Assigned Provider 02/29/24 Mena Mcwilliams RN [address] [place] [address] [email or web address] [email or web address] 11/13/23 12/11/23 documented as of this encounter Additional Source Comments The information contained in this document represents components of the legal health record. It is not the complete legal health record.[facility]
--- OUTSIDE RECORDS SUMMARY | 2025-03-30 13:01 | XMS_ITS | Encounter Summary ---
Author Organization [facility] Address [address] [place] [address] Phone Care Team Providers Care Agency Sales Representative Name Role Phone Karlos Lyons MD Primary Care Provider [phone] Karlos Lyons MD Unavailable [phone] Omar Rocha MD Unavailable Sagar Leung MD Unavailable Karlos Lyons MD Primary Care Provider Yefri Hilliard MD Unavailable Karlos Murry MD Unavailable [phone] Sergey Tyson MD Primary Care Provider [phone] Apple Talavera MD Unavailable [phone] Sergey Tyson MD Unavailable Mena Mcwilliams RN Unavailable [phone] Reason for Referral * Outpatient Procedure - Closed Specialty Diagnoses / Procedures Referred By Jessica balbuena Referred To Contact Radiology Diagnoses Dyspepsia Procedures NM Gastric Emptying Karlos Murry MD [address] [place] [address] Email: Referral ID Status Reason Start Date Expiration Date Visits Re quested Visits Authorized [id number] Closed 01/09/2018 01/09/2019 1 1 Encounter Details Date Type Department Care Team (Late st Contact Info) Description 01/09/2018 Ancillary Orders Virtual Department [address] [place] [address] Karlos Murry MD [address] [place] [phone] Dyspepsia Social History Tobacco Use Types Packs/Day Years Used Date Smoking Tobacco: Former Cigarettes Comments:Quit smokin11/25 Sex and Gender Information Value Date Recorded Sex Assigned at Female 05/05/2021 9:10 PM EDT Gender Identity Female 03/19/2021 10:12 AM EDT Sexual Orientation Straight 05/05/2021 9: 10 PM EDT documented as of this encounter Plan of Treatment Upcoming Encounters Date Type Department Care Team (Late Contact Info) Description 03/18/2024 Procedure Pass [address] [address] 04/13/2025 9:00 AM EDT Appointment [facility] Internal Medicine [address] [place] [address] Sergey Tyson MD [address] [place] [address] 04/21/2025 3:00 PM EDT Appointment [address] [address] Apple Talavera MD [address] [place] [address] [email or web address] 04/27/2025 8:30 AM EDT Office Visit [facility] at [address] [address] Apple Talavera MD [address] [place] [address] [email or web address] documented as of this encounter Results * NM GASTRIC EMPTYING SOLID PHASE (02/13/2018 1:22 PM EDT) Anatomical Region Laterality Modality Abdomen, Pelvis Nuclear Medicine 02/13/2018 3:56 PM EDT Impressions 02/13/2018 3:59 PM EDT Normal study. Dose: 1 mCi Tc-99m sulfur colloid in scrambled eggs. POS [id number] Narrative 02/13/2018 3:59 PM EDT HISTORY: ??Dyspepsia. COMPARISON: ??CT abdomen 08/12/2017. EXAM: ??Gastric emptying study. FINDINGS: The percent of gastric retention of radiotracer is measured at one hour, two hour and four hours. At one hour the measurement is 74.2%. ??At two hours the measurement is 33.9%. ??At four hours the measurement is 0.7%. ??All of the values are within normal limits. Procedure Note Hammad Mchugh MD - 02/13/2018 HISTORY: Dyspepsia. COMPARISON: CT abdomen 08/12/2017. EXAM: Gastric emptying study. FINDINGS: The percent of gastric retention of radiotracer is measured at one hour,two hour and four hours. At one hour the measurement is 74.2%. At two hours the measurement is33.9%. At four hours the measurement is 0.7%. All of the values arewithin normal limits. IMPRESSION: Normal study. Dose: 1 mCi Tc-99m sulfur colloid in scrambled eggs. POS [id number] Karlos Murry MD IMG NM ABDOMEN documented in this encounter Visit Diagnoses Diagnosis Dyspepsia Dyspepsia and other specified disorders of function of stomach Dyspepsia Dyspepsia and other specified disorders of function of stomach documented in this encounter Additional Health Concerns Infection Onset Date Last Indicated Resolved Time CoV-Risk 05/07/2022 05/07/2022 05/18/2022 1:24 AM EDT documented as of this encounter Care Teams Agency Sales Representative Relationship Specialty Start Date End Date Karlos Lyons MD [address] [address] [email or web address] PCP - General Internal Medicine 07/14/14 05/07/21 Karlos Lyons MD [address] [place] [address] [email or web address] PCP - General Internal Medicine 05/08/21 05/09/22 Sergey Tyson MD [address] [place] [address] [email or web address] PCP - General Internal Medicine 05/10/22 Karlos Lyons MD [address] [place] [address] [email or web address] Insurance Assigned Provider 02/23/17 03/02/23 Omar Rocha MD [address] [place] [address] [email or web address] Physical Medicine and Rehabilitation 05/08/21 Sagar Leung MD 22 [facility], [address] [place] [address] [email or web address] Obstetrics and Gynecology 05/08/21 Yefri Hilliard MD [address] [place] [address] Endocrinology 05/08/21 Karlos Murry MD [address] [place] [address] [email or web address] Gastroenterology 02/27/22 Apple Talavera MD [address] [place] [address] [email or web address] Primary Oncologist Medical Oncology 02/19/23 Sergey Tyson MD [address] [place] [address] [email or web address] Insurance Assigned Provider 02/29/24 Mena Mcwilliams, RN [address] [place] [address] [email or web address] i[employer] Housing Officer 11/13/23 12/11/23 documented as of this encounter Additional Source Comments The information contained in this document represents components of the legal health record. It is not the complete legal health record.[facility]
--- OUTSIDE RECORDS SUMMARY | 2025-03-30 13:01 | XMS_ITS | Encounter Summary ---
Author Organization [facility] Address [address] [place] [address] Phone Care Team Providers Care Hospice Volunteer Coordinator Name Role Phone Karlos Lyons MD Primary Care Provider Karlos Lyons MD Unavailable [phone] Omar Rocha MD Unavailable [phone] Sagar Leung MD Unavailable Karlos Lyons MD Primary Care Provider + [phone] Yefri Hilliard MD Unavailable [phone] Karlos Murry MD Unavailable [phone] Sergey Tyson MD Primary Care Provider [phone] Apple Talavera MD Unavailable [phone] Sergey Tyson MD Unavailable Mena Mcwilliams RN Unavailable [phone] Encounter Details Date Type Department Care Team (Late st Contact Info) Description 10/07/2019 Procedure Pass [facility] - [address] [place] [address] Social History Tobacco Use Types Packs/Day Years Used Date Smoking Tobacco: Former Cigarettes Smokeless Tobacco: Never Comments:quit 1970 Alcohol Use [...] Sign Reading Time Taken Comments Blood Pressure - - Pulse - - Temperature - - Respiratory Rate - - Oxygen Saturation - - Inhaled Oxygen Concentration - - Weight 59 kg (130 lb) 10/07/2019 1:40 PM EST Height 167.6 cm (5' 6 ) 10/07/2019 1:40 PM EST Body Mass Index 20.98 10/07/2019 1:40 PM EST documented in this encounter Plan of Treatment Upcoming Encounters Date Type Department Care Team (Late st Contact Info) Description 03/18/2024 Procedure Pass [address] [address] 04/13/2025 9:00 AM EDT Appointment [facility] Internal Medicine [address] [place] [address] Sergey Tyson MD [address] [place] [address] [email or web address] 04/21/2025 3:00 PM EDT Appointment [address] [address] Apple Talavera MD [address] [place] [address] [email or web address] 04/27/2025 8:30 AM EDT Office Visit [facility] at [address] [address] Apple Talavera MD [address] [place] [address] [email or web address] documented as of this encounter Visit Diagnoses Not on filedocumented in this encounter Additional Health Concerns Infection Onset Date Last Indicated Resolved Time CoV-Risk 05/07/2022 05/07/2022 05/18/2022 1:24 AM EDT Assessment Noted Time PHQ-2 Depression Total Score: 0 10/20/20 18 10:00 AM EST documented as of this encounter Care Teams Hospice Volunteer Coordinator Relationship Specialty Start Date End Date Karlos Lyons MD [address] [place] [address] [email or web address] PCP - General Internal Medicine 07/14/14 05/07/21 Karlos Lyons MD [address] [place] [address] [email or web address] PCP - General Internal Medicine 05/08/21 05/09/22 Sergey Tyson MD [address] [place] [address] [email or web address] PCP - General Internal Medicine 05/10/22 Karlos Lyons MD [address] [place] [address] [email or web address] Insurance Assigned Provider 02/23/17 03/02/23 Omar Rocha MD [address] [place] [address] [email or web address] Physical Medicine and Rehabilitation 05/08/21 Sagar Leung MD [address] [place] [address], [address] [place] [address] [email or web address] Obstetrics and Gynecology 05/08/21 Yefri Hilliard MD [address] [place] [address] Endocrinology 05/08/21 Karlos Murry MD [address] [place] [address] [email or web address] Gastroenterology 02/27/22 Apple Talavera MD [address] [place] [address] [email or web address] Primary Oncologist Medical Oncology 02/19/23 Sergey Tyson MD [address] [place] [address] [email or web address] Insurance Assigned Provider 02/29/24 Mena Mcwilliams, RN [address] [place] [address] [email or web address] iCMP Stock Broker Supervisor 11/13/23 12/11/23 documented as of this encounter Additional Source Comments The information contained in this document represents components of the legal health record. It is not the complete legal health record.[facility]
--- OUTSIDE RECORDS SUMMARY | 2025-03-30 13:01 | XMS_ITS | Encounter Summary ---
Author Organization [facility] Address [address] [place], [place] [address] [place] [address] Phone Care Team Providers Care Box Cutter Name Role Phone Karlos Lyons MD Primary Care Provider Karlos Lyons MD Unavailable [phone] Omar Rocha MD Unavailable [phone] Sagar Leung MD Unavailable Karlos Lyons MD Primary Care Provider + [phone] Yefri Hilliard MD Unavailable [phone] Karlos Murry MD Unavailable [phone] Sergey Tyson MD Primary Care Provider [phone] Apple Talavera MD Unavailable [phone] Sergey Tyson MD Unavailable Mena Mcwilliams RN Unavailable [phone] Encounter Details Date Type Department Care Team (Late st Contact Info) Description 09/04/2019 Ancillary Orders [facility] Internal Medicine [address] [place] [address] Karlos Lynos MD [address] [place] [address] [email or web address] Breast screening Social History Tobacco Use [...] Contact Info) Description 03/18/2024 Procedure Pass [address] [address] 04/13/2025 9:00 AM EDT Appointment [facility] Internal Medicine [address] [place] [address] Sergye Tyson MD [address] [place] [address] 04/21/2025 3:00 PM EDT Appointment [address] [address] Apple Talavera MD [address] [place] [address] 04/27/2025 8:30 AM EDT Office Visit [facility] at [address] [address] Apple Talavera MD [address] [place] [address] documented as of this encounter Results * BI MAMMOGRAM SCREENING WITH TOMOSYNTHESIS WITH CAD (RIGHT) (09/04/2019 10:56 AM EDT) Anatomical Region Laterality Modality Breast Right, Breast Bilateral Right M ammography 09/04/2019 11:3 0 AM EDT Impressions 09/04/2019 11:32 AM EDT Stable appearance relative to prior imaging. ??No findings suggestive of malignancy are seen. BI-RADS CATEGORY: 2 - Benign finding. DENSITY: ??The breast tissue is heterogeneously dense, an appearance which lowers the sensitivity of mammography. POS - [id number] Narrative 09/04/2019 11:32 AM EDT Full-field digital mammography is obtained with computer-aided detection. ??Comparison with prior imaging from 08/19/2018 is made with older imaging dating back as far as 04/13/2013 also reviewed. There is heterogeneous fibroglandular density evident in the breasts. ??In addition to 2-D C view imaging, tomosynthesis images are obtained in two projections of the right breast. The patient has had a left mastectomy. Minor scattered punctate calcifications are again noted and are unchanged.. ??No dominant soft tissue mass of concern, suspicious cluster of calcifications, significant interval skin changes, or architectural distortion is identified. Procedure Note Sammy Tirado MD - 09/04/2019 Full-field digital mammography is obtained with computer-aided detection.Comparison with prior imaging from 08/19/2018 is made with older imagingdating back as far as 04/13/2013 also reviewed. There is heterogeneous fibroglandular density evident in the breasts. Inaddition to 2-D C view imaging, tomosynthesis images are obtained in twoprojections of the right breast. The patient has had a left mastectomy. Minor scattered punctate calcifications are again noted and areunchanged.. No dominant soft tissue mass of concern, suspicious clusterof calcifications, significant interval skin changes, or architecturaldistortion is identified. IMPRESSION: Stable appearance relative to prior imaging. No findings suggestive ofmalignancy are seen. BI-RADS CATEGORY: 2 - Benign finding. DENSITY: The breast tissue is heterogeneously dense, an appearance whichlowers the sensitivity of mammography. POS - [id number] Karlos Lyons MD IMG MG EXAMS documented in this encounter Visit Diagnoses Diagnosis Breast screening Breast screening, unspecified Breast screening Breast screening, unspecified documented in this encounter Additional Health Concerns Infection Onset Date Last Indicated Resolved Time CoV-Risk 05/07/2022 05/07/2022 05/18/2022 1:24 AM EDT Assessment Noted Time PHQ-2 Depression Total Score: 0 10/20/20 18 10:00 AM EST documented as of this encounter Care Teams Box Cutter Relationship Specialty Start Date End Date Karlos Lyons MD [address] [place] [address] [email or web address] PCP - General Internal Medicine 07/14/14 05/07/21 Karlos Lyons MD [address] [place] [address] [email or web address] PCP - General Internal Medicine 05/08/21 05/09/22 Sergey Tyson MD [address] [place] [address] [email or web address] PCP - General Internal Medicine 05/10/22 Karlos Lyons MD [address] [place] [address] [email or web address] Insurance Assigned Provider 02/23/17 03/02/23 Omar Rocha MD [address] [place] [address] [email or web address] Physical Medicine [email or web address] Rehabilitation 05/08/21 Sagar Leung MD [address] [place] [address] [address] [place] [address] Obstetrics and Gynecology 05/08/21 Yefri Hilliard MD [address] [place] [address] Endocrinology 05/08/21 Karlos Murry MD [address] [place] [address] Gastroenterology 02/27/22 Apple Talavera MD [address] [place] [address] Primary Oncologist Medical Oncology 02/19/23 Sergey Tyson MD [address] [place] [address] [email or web address] Insurance Assigned Provider 02/29/24 Mena Mcwilliams, RN [address] [place] [address] [email or web address] iCMP Business Office Technology Instructor 11/13/23 12/11/23 documented as of this encounter Additional Source Comments The information contained in this document represents components of the legal health record. It is not the complete legal health record.[facility]
--- OUTSIDE RECORDS SUMMARY | 2025-03-30 13:03 | XMS_ITS | Encounter Summary ---
Author Organization [facility] Address [address] [place] [address] [address] [place] [address] Phone Care Team Providers Care Rn Rehabilitation Name Role Phone Karlos Lyons MD Primary Care Provider Karlos Lyons MD Unavailable [phone] Omar Rocha MD Unavailable [phone] Sagar Leung MD Unavailable Karlos Lyons MD Primary Care Provider + [phone] Yefri Hilliard MD Unavailable [phone] Karlos Murry MD Unavailable [phone] Sergey Tyson MD Primary Care Provider [phone] Apple Talavera MD Unavailable [phone] Sergey Tyson MD Unavailable Mena Mcwilliams RN Unavailable [phone] Encounter Details Date Type Department Care Team (Late st Contact Info) Description 03/16/2019 Procedure Pass [facility] [address] [place] [address] Social History Tobacco Use Types Packs/Day Years [...] st Contact Info) Description 03/18/2024 Procedure Pass [address] [address] 04/13/2025 9:00 AM EDT Appointment [facility] Internal Medicine [address] [place] [address] Sergey Tyson MD [address] [place] [address] 04/21/2025 3:00 PM EDT Appointment [address] [address] Apple Talavera MD [address] [place] [address] [email or web address] 04/27/2025 8:30 AM EDT Office Visit [facility] at [address] [address] Apple Talavera MD [address] [place] [address] documented as of this encounter Visit Diagnoses Not on filedocumented in this encounter Additional Health Concerns Infection Onset Date Last Indicated Resolved Time CoV-Risk 05/07/2022 05/07/2022 05/18/2022 1:24 AM EDT Assessment Noted Time PHQ-2 Depression Total Score: 0 10/20/20 10:00 AM EST documented as of this encounter Care Teams Rn Rehabilitation Relationship Specialty Start Date End Date Karlos Lyons MD [address] [address] [email or web address] PCP - General Internal Medicine 07/14/14 05/07/21 Karlos Lyons MD [address] [place] [address] [email or web address] PCP - General Internal Medicine 05/08/21 05/09/22 Sergey Tyson MD [address] [place] [address] [email or web address] PCP - General Internal Medicine 05/10/22 Karlos Lyons MD [address] [place] [address] [email or web address] Insurance Assigned Provider 02/23/17 03/02/23 Omar Rocha MD [address] [place] [address] [email or web address] Medicine [email or web address] 05/08/21 Sagar Leung MD [address] [place] [address] [address] [place] [address] [email or web address] Obstetrics and Gynecology 05/08/21 Yefri Hilliard MD [address] [place] [address] Endocrinology 05/08/21 Karlos Murry MD [address] [place] [address] [email or web address] Gastroenterology 02/27/22 Apple Talavera MD [address] [place] [address] [email or web address] Primary Oncologist Medical Oncology 02/19/23 Sergey Tyson MD [address] [place] [address] [email or web address] Insurance Assigned Provider 02/29/24 Mena Mcwilliams, RN [address] [place] [address] [email or web address] iC[employer] Psychologist Industrial Organizational 11/13/23 12/11/23 documented as of this encounter Additional Source Comments The information contained in this document represents components of the legal health record. It is not the complete legal health record.[facility]
--- OUTSIDE RECORDS SUMMARY | 2025-03-30 13:03 | XMS_ITS | Encounter Summary ---
Author Organization [facility] Address [address] [place] [address] [address] [place] [address] Phone Care Team Providers Care Hearing Aid Repair Technician Name Role Phone Karlos Lyons MD Primary Care Provider Karlos Lyons MD Unavailable [phone] Omar Rocha MD Unavailable [phone] Sagar Leung MD Unavailable Karlos Lyons MD Primary Care Provider [phone] Yefri Hilliard MD Unavailable [phone] Karlos Murry MD Unavailable [phone] Sergey Tyson MD Primary Care Provider [phone] Apple Talavera MD Unavailable [phone] Sergey Tyson MD Unavailable Mena Mcwilliams RN Unavailable [phone] Reason for Referral * Outpatient Procedure - Closed Specialty Diagnoses / Procedures Referred By Jessica balbuena Referred To Contact Radiology Diagnoses Bilateral hand pain Complex regional pain syndrome type 1 of both upper extremities Procedures NM Bone Flow 3 Phase Omar Rocha MD [address] [place] [address] Email: [email or web address] Referral ID Status Reason Start Date Expiration Date Visits Re quested Visits Authorized [id number] Closed 04/17/2018 04/17/2019 1 1 Encounter Details Date Type Department Care Team (Late Contact Info) Description 04/17/2018 Ancillary Orders Virtual Department [address] [place] [address] Omar Rocha MD [address] [place] [address] [email or web address] Bilateral hand pain; Complex regional pain syndrome type 1 of both upper extremities Social History Tobacco Use Types Packs/Day Years [...] (Late Contact Info) Description 03/18/2024 Procedure Pass [address] [address] 04/13/2025 9:00 AM EDT Appointment [facility] [place] [facility] [address] [place] [address] Sergey Tyson MD [address] [place] [address] 04/21/2025 3:00 PM EDT Appointment [address] [address] Apple Talavera MD [address] [place] [address] 04/27/2025 8:30 AM EDT Office Visit [facility] at Annie Ruggiero [address] [place] [address] Apple Talavera MD [address] [place] [address] documented as of this encounter Results * NM Bone Flow 3 Phase (04/24/2018 2:52 PM EDT) Anatomical Region Laterality Modality Shoulder Right, Shoulder Lef t, Arm Left, Arm Right, Elbow Left, Elbow Right, Forearm Left, Forearm Right, Wrist Right, Wrist Left, Hand Left, Hand Right, Hip Left, Hip Right, Hip Bilateral, Thigh Left, Thigh Right, Knee Left, Knee Right, Knee Bilateral, Leg Left, Leg Right, Ankle Left, Ankle Right, Foot Left, Foot Right, Pelvis Nucle ar Medicine 04/24/2018 2:53 PM EDT Impressions 04/24/2018 2:57 PM EDT Minor soft tissue activity evident along the radial aspect of the wrists bilaterally greater on the left and the right. This is a non-specific finding but suggests possible soft tissue inflammation. Arthritic changes evident in both hands in the interphalangeal joints. No definitive findings of complex regional pain syndrome are suggested. S/S: Complex regional pain syndrome type I of both upper extremities hands and wrists, bilateral hand and wrist pain and swelling ? POS - [id number] Narrative 04/24/2018 2:57 PM EDT DOSE: ??23.9 mCi Tc-99m labeled MDP COMPARISON: X-ray of right forearm December 02, 2017 FINDINGS: Flow images are unremarkable without asymmetry or significant hyperemia Delayed blood pool images disclose increased activity in the lateral aspect of the wrists bilaterally greater on the left than the right. This appears to be soft tissue activity. Delayed static images disclose increased activity in the interphalangeal joints consistent with osteoarthritis. No abnormal activity is evident in the wrists and forearms. The upper arms are also unremarkable. Procedure Note Sammy Tirado MD - 04/24/2018 DOSE: 23.9 mCi Tc-99m labeled MDP COMPARISON: X-ray of right forearm December 02, 2017 FINDINGS: Flow images are unremarkable without asymmetry or significant hyperemia Delayed blood pool images disclose increased activity in the lateralaspect of the wrists bilaterally greater on the left than the right. Thisappears to be soft tissue activity. Delayed static images disclose increased activity in the interphalangealjoints consistent with osteoarthritis. No abnormal activity is evident inthe wrists and forearms. The upper arms are also unremarkable. IMPRESSION: Minor soft tissue activity evident along the radial aspect of the wristsbilaterally greater on the left and the right. This is a non-specificfinding but suggests possible soft tissue inflammation. Arthritic changesevident in both hands in the interphalangeal joints. No definitivefindings of complex regional pain syndrome are suggested. S/S: Complex regional pain syndrome type I of both upper extremities handsand wrists, bilateral hand and wrist pain and swelling POS - [id number] Omar Rocha MD IMG NM BONE SCA N documented in this encounter Visit Diagnoses Diagnosis Bilateral hand pain Complex regional pain syndrome type 1 of both upper extremities Bilateral hand pain Complex regional pain syndrome type 1 of both upper extremities documented in this encounter Additional Health Concerns Infection Onset Date Last Indicated Resolved Time CoV-Risk 05/07/2022 05/07/2022 05/18/2022 1:24 AM EDT documented as of this encounter Care Teams Hearing Aid Repair Technician Relationship Specialty Start Date End Date Karlos Lyons MD [address] [address] [email or web address] PCP - General Internal Medicine 07/14/14 05/07/21 Karlos Lyons MD [address] [address] [email or web address] PCP - General Internal Medicine 05/08/21 05/09/22 Sergey Tyson MD [address] [place] [address] [email or web address] PCP - General Internal Medicine 05/10/22 Karlos Lyons MD [address] [place] [address] [email or web address] Insurance Assigned Provider 02/23/17 03/02/23 Omar Rocha MD [address] [place] [address] [email or web address] Physical Medicine and Rehabilitation 05/08/21 Sagar Leung MD [address] [place] [address] [email or web address] Obstetrics and Gynecology 05/08/21 Yefri Hilliard MD [address] [place] [address] Endocrinology 05/08/21 Karlos Murry MD [address] [place] [address] [email or web address] Gastroenterology 02/27/22 Apple Talavera MD [address] [place] [address] [email or web address] Primary Oncologist Medical Oncology 02/19/23 Sergey Tyson MD [address] [place] [address] [email or web address] Insurance Assigned Provider 02/29/24 Mena Mcwilliams, RN [address] [place] [address] [email or web address] Nurse Examiner 11/13/23 12/11/23 documented as of this encounter Additional Source Comments The information contained in this document represents components of the legal health record. It is not the complete legal health record.[facility]
--- OUTSIDE RECORDS SUMMARY | 2025-03-30 13:03 | XMS_ITS | Encounter Summary ---
Author Organization [facility] Address [address] [place] [address] [address] [place] [address] Phone Care Team Providers Care Group Underwriter Name Role Phone Karlos Lyons MD Primary Care Provider Karlos Lyons MD Unavailable [phone] Omar Rocha MD Unavailable [phone] Sagar Leung MD Unavailable Karlos Lyons MD Primary Care Provider [phone] Yefri Hilliard MD Unavailable [phone] Karlos Murry MD Unavailable [phone] Sergey Tyson MD Primary Care Provider [phone] Apple Talavera MD Unavailable [phone] Sergey Tyson MD Unavailable Mena Mcwilliams RN Unavailable [phone] Reason for Referral * Occupational Therapy (Routine) - Closed Specialty Diagnoses / Procedures Referred By Jessica balbuena Referred To Contact Occupational Therapy Diagnoses Encounter for rehabilitation System, Provider Not In, PhD [facility] [address] [place] [address] [address] Referral ID Status Reason Start Date Expiration Date Visits Re quested Visits Authorized [id number] Closed 02/14/2018 11/24/2018 99 99 Encounter Details Date Type Department Care Team (Latest Contact Info) Description 02/14/2018 Transcribe Orders [facility] [address] [place] [address] Theresa Peterson [facility] [place] [address] [email or web address] Encounter for rehabilitation (Primary Dx) Social History Tobacco Use Types [...] st Contact Info) Description 03/18/2024 Procedure Pass [address] [address] 04/13/2025 9:00 AM EDT Appointment [facility] Internal Medicine [address] [place] [address] Sergey Tyson MD [address] [place] [address] 04/21/2025 3:00 PM EDT Appointment [address] [address] Apple Talavera MD [address] [place] [address] 04/27/2025 8:30 AM EDT Office Visit [facility] at [address] [address] Apple Talaevra MD [address] [place] [address] [email or web address] Scheduled Referrals Name Type Priority Associated Diagnoses Orde r Schedule Ambulatory referral to [facility] Occupational Therapy Outpatient Referral Routine Encounter for rehabilitation Ordered: 02/14/2018 documented as of this encounter Visit Diagnoses Diagnosis Encounter for rehabilitation- Primary documented in this encounter Additional Health Concerns Infection Onset Date Last Indicated Resolved Time CoV-Risk 05/07/2022 05/07/2022 05/18/2022 1:24 AM EDT documented as of this encounter Care Teams Group Underwriter Relationship Specialty Start Date End Date Karlos Lyons MD [address] [place] [address] [email or web address] PCP - General Internal Medicine 07/14/14 05/07/21 Karlos Lyons MD [address] [place] [address] [email or web address] PCP - General Internal Medicine 05/08/21 05/09/22 Sergey Tyson MD [address] [place] [address] [email or web address] PCP - General Internal Medicine 05/10/22 Karlos Lyons MD [address] [place] [address] [email or web address] Insurance Assigned Provider 02/23/17 03/02/23 Omar Rocha MD [address] [place] [address] [email or web address] Medicine [email or web address] 05/08/21 Sagar Leung MD [address] [facility], [address] [place] [address] Obstetrics and Gynecology 05/08/21 Yefri Hilliard MD [address] [place] [address] Endocrinology 05/08/21 Karlos Murry MD [address] [place] [address] [email or web address] Gastroenterology 02/27/22 Apple Talavera MD [address] [place] [address] [email or web address] Primary Oncologist Medical Oncology 02/19/23 Sergey Tyson MD [address] [place] [address] [email or web address] Insurance Assigned Provider 02/29/24 Mena Mcwilliams, RN [address] [place] [address] [email or web address] Software Security Consultant 11/13/23 12/11/23 documented as of this encounter Additional Source Comments The information contained in this document represents components of the legal health record. It is not the complete legal health record.[facility]
--- OUTSIDE RECORDS SUMMARY | 2025-03-30 13:03 | XMS_ITS | Encounter Summary ---
Author Organization [facility] Address [address] [place] [address] 9[address] [place] [address] Phone Care Team Providers Care Strategic Planning Specialist Name Role Phone Karlos Lyons MD Primary Care Provider Karlos Lyons MD Unavailable [phone] Omar Rocha MD Unavailable [phone] Sagar Leung MD Unavailable Karlos Lyons MD Primary Care Provider [phone] Yefri Hilliard MD Unavailable [phone] Karlos Murry MD Unavailable [phone] Sergey Tyson MD Primary Care Provider Apple Talavera MD Unavailable [phone] Sergey Tyson MD Unavailable Mena Mcwilliams RN Unavailable [phone] Encounter Details Date Type Department Care Team (Latest Contact Info) Description 10/30/2018 Transcribe Orders [address] [place] [address] Karlos Murry MD [address] [place] [phone] Nausea (Primary Dx) Social History Tobacco Use Types [...] st Contact Info) Description 03/18/2024 Procedure Pass [address] [address] 04/13/2025 9:00 AM EDT Appointment [facility] Internal Medicine [address] [place] [address] Sergey Tyson MD [address] [place] [address] [email or web address] 04/21/2025 3:00 PM EDT Appointment [address] [address] Apple Talavera MD [address] [place] [address] 04/27/2025 8:30 AM EDT Office Visit [facility] at [address] [address] Apple Talavera MD [address] [place] [address] documented as of this encounter Results * Stool fat/fiber exam (10/29/2018 8:00 PM EST) FATTY ACID NORMAL NORMAL [facility] Neutral Fat, stool NORMAL NORMAL [facility] Stool (Stool) 10/29/2018 8:0 0 PM EST 10/30/2018 11:55 AM EST Karlos Murry MD BODY FLUIDS AND ST OOLS ORDERABLES [facility] [address] [place] [address] documented in this encounter Visit Diagnoses Diagnosis Nausea- Primary Nausea alone documented in this encounter Additional Health Concerns Infection Onset Date Last Indicated Resolved Time CoV-Risk 05/07/2022 05/07/2022 05/18/2022 1:24 AM EDT Assessment Noted Time PHQ-2 Depression Total Score: 0 10/20/20 18 10:00 AM EST documented as of this encounter Care Teams Strategic Planning Specialist Relationship Specialty Start Date End Date Karlos Lyons MD [address] [place] [address] [email or web address] PCP - General Internal Medicine 07/14/14 05/07/21 Karlos Lyons MD [address] [place] [address] [email or web address] PCP - General Internal Medicine 05/08/21 05/09/22 Sergey Tyson MD [address] [place] [address] [email or web address] PCP - General Internal Medicine 05/10/22 Karlos Lyons MD [address] [place] [address] [email or web address] Insurance Assigned Provider 02/23/17 03/02/23 Omar Rocha MD [address] [place] [address] [address] [place] [address] [email or web address] 05/08/21 Sagar Leung MD [address] [place] [address], [address] [place] [address] Obstetrics and Gynecology 05/08/21 Yefri Hilliard MD [address] [place] [address] Endocrinology 05/08/21 Karlos Murry MD [address] [place] [address] Gastroenterology 02/27/22 Apple Talavera MD [address] [place] [address] Primary Oncologist Medical Oncology 02/19/23 Sergey Tyson MD [address] [place] [address] Insurance Assigned Provider 02/29/24 Mena Mcwilliams, RN [address] [place] [address] [email or web address] [employer] Shot[employer] Operator 11/13/23 12/11/23 documented as of this encounter Additional Source Comments The information contained in this document represents components of the legal health record. It is not the complete legal health record.[facility]
--- OUTSIDE RECORDS SUMMARY | 2025-03-30 13:03 | XMS_ITS | Encounter Summary ---
Author Organization [facility] Address [address] [place] [address] Care Team Providers Care Seat Cover Installer Name Role Phone Sergey Tyson MD Primary Care Provider [phone] Encounter Details Date Type Department Care Team (Late st Contact Info) Description 12/24/2024 Lab Requisition [facility] [address] [facility] [place] [address] [facility] [address] [place] [address] Calculus of kidney Social History Tobacco Use Types Packs/Day Years Used Date Smoking Tobacco: Never Assessed Comments Unknown Sex and Gender Information Value Date Recorded Sex Assigned at Not on file Legal Sex Female 12:13 AM EST Gender Identity Not on file Sexual Orientation Not on file documented as of this encounter Plan of Treatment Not on file documented as of this encounter Procedures Procedure Name Priority Date/Time Associated Diagnosis Comments VITAMIN D 25 HYDROXY Routine 12/24/2024 2:15 PM EST Calculus of kidney PARATHYROID HORMONE INTACT Routine 12/24/2024 2:15 PM EST Calculus of kidney documented in this encounter Results * Vitamin D 25 hydroxy (12/24/2024 2:15 PM EST) Vit D, 25-Hydroxy 53.6 30.0 - 80.0 ng/mL LAB CHEMISTRY METHOD 12/24/2024 7:29 PM EST [facility] Blood Venous blood specimen / Unknown 12/24/2024 2:15 PM EST 12/24/2024 6:35 PM EST [facility] LAB BLOOD ORDERABLES Final Re sult Performing Organization Address City/[facility]/ZIP Co de Phone Number [facility] [address] [place] [address], [place] [phone] * Parathyroid hormone intact (12/24/2024 2:15 PM EST) PTH 36.6 18.5 - 88.0 pcg/mL LAB CHEMISTRY METHOD 12/24/2024 7:29 PM EST [facility] Blood Venous blood specimen / Unknown 12/24/2024 2:15 PM EST 12/24/2024 6:35 PM EST [facility] LAB BLOOD ORDERABLES Final Re sult Performing Organization Address [facility]/ZIP Co de Phone Number [facility] [address] [place] [address], [place] [phone] documented in this encounter Visit Diagnoses Diagnosis Calculus of kidney documented in this encounter Care Teams Seat Cover Installer Relationship Specialty Start Date End Date Sergey Tyson MD [address] [place] [address] PCP - General Internal Medicine 12/24/24 documented as of this encounter
--- NOTE | 2025-03-30 14:09 | PHA.MEDREC ---
Pharmacy Consult ? Medication Reconciliation Pharmacy has completed the medication reconciliation. CLAIM HISTORY AND MED LIST FAXED UP
[2025-03-30 14:21] VITALS: BP 154/66; PULSE 92; RESP 18; TEMP 36.6; O2SAT 97
[2025-03-30] MEDS: Mineral OiL enema 133 ML ENEMA PR (15:02)
[2025-03-30 15:46] VITALS: BP 146/67; PULSE 90; RESP 14; TEMP 36.7; O2SAT 95
[2025-03-30 16:11] LABS: OBS Int Ctl Valid YES; OBS1 NEGATIVE (NEGATIVE)
[2025-03-30 16:55] VITALS: BP 146/67; PULSE 90; RESP 14; TEMP 36.7; O2SAT 95
[2025-03-30 17:00] LABS: Alkaline Phosphatase 82 U/L (39-117)
== END 2025-03-30 16:56 | disposition home or self-care (01) ==
PROVIDERS: Physician Assistant; Emergency Provider Emergency Medicine Emergency Medical Services; PCP Internal Medicine
DX: R10.9 Unspecified abdominal pain (principal); K83.8 Other specified diseases of biliary tract; J18.9 Pneumonia, unspecified organism; R05.9 Cough, unspecified; Z79.899 Other long term (current) drug therapy; Z03.818 Encounter for observation for suspected exposure to other biological agents ruled out
CPT/HCPCS: 0241U; 36415; 71046; 74176; 76705; 80048; 80076; 81001; 82272; 83690; 83735; 85025; 87040; 96361; 96374; 96376; 99284; J3010

== ENCOUNTER → 2025-03-30 10:24 | Outpatient (BNV) | payer BC, OTHER, MEDICARE, SELFPAY | PROVIDERS: Emergency Provider Emergency Medicine Emergency Medical Services; PCP Internal Medicine; Visit Provider Radiology Diagnostic Radiology | DX: N20.0 Calculus of kidney (principal); R10.11 Right upper quadrant pain; J44.9 Chronic obstructive pulmonary disease, unspecified | CPT/HCPCS: 71046; 74176; 76705 ==

== ENCOUNTER 2025-04-02 09:57 | Outpatient (AMB) | payer BC, MEDICARE, SELFPAY ==
[2025-04-02 09:59] VITALS: BP 184/88; PULSE 91; O2SAT 94; BMI 18.2
--- NOTE | 2025-04-02 09:59 | A.OFFVIS_ITS ---
Vital Signs 3 04/02/25 09:59 Height 5 ft 6 in Weight 112 lb 14.027 oz BMI 18.2 BP 184/88 H Blood Pressure Location Lt brachial Position Sitting Pulse 91 Pulse Source Pulse Oximeter Pulse Oximetry (%) 94 Oxygen Delivery Method Room Air Intake Visit Reasons: Epigastric pain/Trouble swallowing, wt lost Intake Note: Pt presents to the office today for c/o epigastric pain,trouble swallowing, and weight loss. Accompanied by: Daughter Allergies adhesive tape Allergy (Verified 04/02/25 10:03) Unknown atenolol [From Tenormin] Allergy (Verified 04/02/25 10:03) Unknown cefaclor [From Ceclor] Allergy (Verified 04/02/25 10:03) Unknown Chocolate Allergy (Verified 04/02/25 10:03) Unknown ciprofloxacin [From Cipro] Allergy (Verified 04/02/25 10:03) Unknown colchicine Allergy (Verified 04/02/25 10:03) Unknown cortisone Allergy (Verified 04/02/25 10:03) Unknown dicyclomine Allergy (Verified 04/02/25 10:03) Unknown gabapentin Allergy (Verified 04/02/25 10:03) Unknown indomethacin Allergy (Verified 04/02/25 10:03) Unknown Iodinated Contrast Media [Contrast Dye] Allergy (Verified 04/02/25 10:03) Unknown latex Allergy (Verified 04/02/25 10:03) Unknown levofloxacin [From Levaquin] Allergy (Verified 04/02/25 10:03) Anaphylaxis lisinopril Allergy (Verified 04/02/25 10:03) Unknown monosodium glutamate Allergy (Verified 04/02/25 10:03) Unknown morphine Allergy (Verified 04/02/25 10:03) Unknown NSAIDS (Non-Steroidal Anti-Inflamma Allergy (Verified 04/02/25 10:03) Unknown penicillin G Allergy (Verified 04/02/25 10:03) Unknown perfume Allergy (Verified 04/02/25 10:03) Unknown povidone-iodine [From Betadine] Allergy (Verified 04/02/25 10:03) Unknown propranolol Allergy (Verified 04/02/25 10:03) Unknown Sulfa (Sulfonamide Antibiotics) Allergy (Verified 04/02/25 10:03) Unknown tamsulosin Allergy (Verified 04/02/25 10:03) Unknown tetracycline Allergy (Verified 04/02/25 10:03) Unknown tramadol Allergy (Verified 04/02/25 10:03) Unknown trazodone Allergy (Verified 04/02/25 10:03) Unknown triamcinolone Allergy (Verified 04/02/25 10:03) Unknown venom-honey bee Allergy (Verified 04/02/25 10:03) Unknown fentanyl patch Allergy (Uncoded 04/02/25 10:03) Unknown HPI HPI Epigastric pain/Trouble swallowing, wt lost: Details: 74-year-old female here for initial evaluation of a multitude of upper GI problems. She is referred by [facility]. PMX Graves disease History of esophageal spasm History of basal cell carcinoma Hypertension Hypothyroid History of PSVT Pyelonephritis /nephrolithiasis History of squamous cell carcinoma TMJ Postoperative nausea and vomiting Osteoarthritis of the hips and hands Lumbar spinal stenosis Depression/anxiety/insomnia History of breast cancer left Cervical degenerative disc disease with herniations Chronic opiate therapy-on oxycodone * SURGICAL HISTORY C5-C6 and C6-C7 cervical diskectomy with fusion Breast augmentation with mammoplasty section Colonoscopy EGD Hysterectomy L5-S1 fusion new lines De Quervain release left Rotator cuff repair Thyroid radiation * ALLERGIES Bees Fentanyl patch Triamcinolone Trazodone Tramadol Tetracycline Flomax Sulfa Propranolol Betadine Penicillin NSAIDs Morphine Msg Levaquin IV contrast Latex Indomethacin Gabapentin Dicyclomine Cortisone Colchicine Cipro Chocolate Ceclor Atenolol Adhesive tape * [facility] Laboratory Tests 03/30/25 03/30/25 11:42 16:05 WBC 5.3 Hgb 14.8 Hct 42.9 Plt Count 335 Estimated GFR > 60 Total Bilirubin 0.7 Direct Bilirubin 0.2 AST 43 H ALT 21 Alkaline Phosphatase 82 Stool Occult Blood NEGATIVE 03/30/25-[address]: Sergey Tyson MD ORDERED: [facility] w Micros QUERIES: Source: Urine, Clean Catch Test Result Flag Reference Ur Color Yellow Ur Appear Clear PH >= 9.0 5.0-9.0 Ur Glu Negative Negative mg/dL Urine Blood Negative Negative Spec [place] Ur 1.015 1.005-1.025 Urine Protein 30 (1+) H Neg-Trace mg/dL Urine Ketones 40 Negative mg/dL Ur Nitrite Negative Negative Ur Eduardo Esterase Negative Negative Ur RBC 0-2 0-2 /HPF Ur WBC 0-5 0-5 /HPF Ur Squam Epi 0-2 0-2 /HPF Ur Bact None Seen None Seen Ur Hyaline Front Desk 0-2 0-2 /LPF US OF ABD 03/30/25 FINDINGS: Gallbladder is fluid-filled. No pericholecystic fluid collection or gallbladder wall thickening. Common bile duct measures 8 mm. No intraluminal abnormality. No gross ascites. US/US abdomen limited IMPRESSION: No cholelithiasis. No choledocholithiasis. CT ABD AND PELVIS FINDINGS: Inadequate evaluation of the intra-abdominal organs and vascular structures due to lack of IV contrast. LUNG BASES: Multifocal patchy pulmonary groundglass, both lower lung lobes lingula and right middle lung lobe. LIVER, GALLBLADDER, AND BILIARY TREE: Liver measures 13 cm. No intrahepatic biliary ductal dilatation. No pericholecystic fluid collection or gallbladder wall thickening. Common bile duct measures 1 cm in maximum diameter and tapers at the junction with the second portion of the duodenum. No intraluminal calcifications. PANCREAS: No peripancreatic fluid collection. No main pancreatic ductal dilatation. SPLEEN: 9 cm. ADRENAL GLANDS: No nodular lesions. KIDNEYS AND URETERS: Multiple, less than 2 mm calcifications throughout the pelvicalyceal systems both kidneys. No hydronephrosis in either kidney. 2 cm exophytic cystic lesion lower pole left kidney. BLADDER: Fluid-filled. GASTROINTESTINAL TRACT: Appendix is retrocecal and normal. Abundant stool. No intestinal obstruction pattern. No pneumatosis intestinalis. No pneumoperitoneum. Trace amount of free fluid in the cul-de-sac. No fluid collections in the peritoneal cavity. ABDOMINAL WALL: No gross umbilical hernia. LYMPH NODES: Nonspecific mildly prominent mesenteric and retroperitoneum. VASCULAR: Calcified plaques throughout the abdominal aorta wall and iliac arteries mesenteric arteries splenic artery and the origin of the main renal arteries. PELVIC VISCERA: Inadequate evaluation. OSSEOUS STRUCTURES: Probable pectus excavatum. Mild to moderate multilevel thoracolumbar spondylosis. Status post intervertebral disc spacer at L5-S1 resulting in arthrodesis. Grade 1 anterolisthesis L3-4 on a degenerative basis. Osteopenia versus osteoporosis. Degenerative changes in the coxofemoral joints and sacroiliac joints. CT/CT abdomen pelvis wo IV con IMPRESSION: Bilateral multifocal pneumonia. Nonobstructing nephrolithiasis. Cystic lesion, left kidney. Prominent common bile duct with questionable stricture in the center of Oddi. Grade 1 anterolisthesis L3-4 on a degenerative basis. CT ABD AND PELVIS [facility] 06/2024 FINDINGS: Visualized Chest: Included lung bases are clear. No basilar pleural effusion. Liver: Within normal limits for noncontrast technique Gallbladder: No CT evidence of gallbladder pathology. Bile ducts: Common bile duct is dilated measuring 10 mm, similar to the prior exam. Spleen: Within normal limits for noncontrast technique Pancreas: Within normal limits for noncontrast technique Adrenal glands: No suspicious nodule Kidneys and ureters: Multiple small (2 3 mm) nonobstructing renal calculi bilaterally which are similar in size and distribution. No evidence of hydronephrosis, hydroureter or ureteral calculus. No evidence of renal contour abnormality. Bladder: Within normal limits for technique Reproductive organs: No evidence of bulky pelvic mass. Stomach, small bowel, and large bowel: Detailed evaluation is suboptimal without enteral opacification. Small and large bowel loops are normal in caliber. Stomach is normally distended. Appendix: Normal in caliber Peritoneum and retroperitoneum: No ascites or pneumoperitoneum. Lymph nodes: No enlarged lymph nodes. Blood vessels: Moderate atherosclerotic vascular calcification. No aortic aneurysm. Abdominal and pelvic wall: Unremarkable. Bones: No acute abnormality. Bones are demineralized in appearance. Fusion hardware at the lumbosacral junction. IMPRESSION: Small nonobstructing renal calculi bilaterally similar in configuration to the prior exam. No evidence of hydronephrosis or ureteral calculus. REVIEW OF DISCHARGE FROM [facility] VISIT 03/2025 (APPARENTLY DISCUSSED WITH DR. BELLO) Discharge Clinical Impression: Abdominal pain, Common bile duct dilatation, Pneumonia Patient Disposition: Home, Self-Care Instructions: Abdominal Pain (ED), Pneumonia (ED) Additional Instructions: Your blood work is reassuring. Your urine shows small evidence of dehydration. Make sure you are staying hydrated at home. Your CAT scan is showing multifocal pneumonia. Due to your continued productive cough azithromycin as an antibiotic please take as prescribed Your common bile duct is also prominent. You need to follow-up outpatient with Gastroenterology. Call to make an appointment If her symptoms persist or worsen, pain becomes constant/unbearable, you have fever, you are unable to eat or drink return to the ED Prescriptions: New azithromycin 250 mg tablet See Rx Instructions .ROUTE .COMPLEX Qty: 6 0RF Rx Instructions: take 500 mg today (day 1), then 250 mg for 4 days (days 2-5) TODAY'S VISIT She is today with her daughter who is supportive. She was seen 03/30/2025 in our ER. She has been seen by [facility] for many years. She has a LLQ pain for about 4 years, but her current GI just skips over it. She also has greasy, orange stools and at times RUQ pain. She says her GB was open 4 cm w/o any plan or a dx. When she eats, she has force herself to eat because if she eats she will have severe pain in the LLQ about 24 mis after eating. It starts as a pressure that ramps up and then it will move across the lower abdomen and to her entire right upper quad. The pain will last all day. It will star with nausea, but she even if she does not eat, but is worse with coffee and food. Even water. He has a hx of H pylori, and it was treated w/o success. She says she was treated for it twice. She dehydrates easily as she can not push fluids. Her stool are mostly soft and gelatin like and about 4 times a month they are orange and diarrheal. She will also have severe burning across the lower abdomen. 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 She has dysphagia of the upper esophagus but also sticking at the GE jxn. She has not had any dilation or mention of esophageal manometry or heard the term achalasia. (however review of note seems to indicate she had an esophageal manometry so I will look for these results) She has not had food allergy testing, but trial of bentyl caused urinary retention and leg swelling. She had an EGD and she was told her GE jxn was too tight but they were not going to do anything about it. Colonoscopies only TA's. She apparently suffered for y ears w/o anyone thinking about H pylori or and EGD. They are very worried about her general nutrition and ability to continue with these problems and not have her general health deteriorate. She is currently being treated for pneumonia and is on antibiotics. She is always fatigued. She has been seen at various hospitals including [facility] and [facility]. Must request re please find records from [facility] Dr. Karlos Murry; [facility], [facility]? Phone (appointments): [phone]: ? ?Address: [address] [place] [address], [facility] [address], [place] [address] tel:[phone] She has lost 35 LBS over 3 years. This is very life limiting. Foods that really set it off are spicy foods, chocolate. and it is better with not eating and she will have 4-5 relief. LIquids are easier as are things like yogurts. Ensure not good sits like a cannonball. She was good for a while after HP treatment, but then returned. She has a stron FHX of GB disease. To her knowledge she has never had a HIDA scan. She HAS had a GES that was normal. Her dtr is concerned that she needs scheduled IV or nutritional therapy. THis is a consideration. HER mother suffered similar sx and of a bleeding ulcer and had severe TICS. She DOES have some atherosclerosis ? blood flow to gut. Mirian has chronic back pain and is on oxycodone but this does not help her abdominal pain. She also has had bad belt with nephrolithiasis with past year obstruction and hydronephrosis. Because she has difficulty drinking she has makes her more prone to the formation of renal stones. ROV 4 weeks PFS Medical History (Updated 04/02/25 @ 12:51 by WILMAR Mejia) History of breast cancer History of vertebral compression fracture History of pelvic fracture History of thyroid irradiation History of basal cell cancer History of squamous cell carcinoma History of pyelonephritis Surgical History (Updated 04/02/25 @ 12:39 by WILMAR Mejia) H/O bilateral mastectomy S/P rotator cuff repair Status post de Quervain release surgery H/O spinal fusion History of augmentation mammoplasty H/O cervical spinal arthrodesis H/O esophagogastroduodenoscopy H/O colonoscopy H/O section Social History (Updated 04/02/25 @ 10:04 by Karin Lund CMA) Alcohol intake: never Patient Tobacco Use Status: Never used Tobacco Review of Systems Const Reports fatigue, Denies fever(s), Reports malaise, Denies night sweats, Denies poor appetite and Reports weight loss Eyes Details: glasses Reports requires corrective lenses ENT Reports Normal hearing present, Denies dental pain, Reports dysphagia, Denies hearing loss, Denies mouth pain, Reports neck pain, Denies odynophagia, Denies throat swelling, Denies tongue swelling and Reports other (Dentition adequate) Card Reports no additional complaints and Reports dyspnea on exertion Resp Reports cough and Reports dyspnea on exertion GI Details: Reports abdominal pain, Denies melena, Reports bloating, Denies hematochezia, Denies constipation, Denies GI cramping, Reports dysphagia, Denies excessive flatus, Denies early satiety, Reports dyspepsia, Denies heartburn, Denies diarrhea, Reports loose stools, Reports nausea, Denies odynophagia, Denies vomiting and Denies hematemesis Musc Reports back pain, Reports myalgias, Reports neck pain, Reports radiating pain into limb and Reports stiffness Skin/Breast Denies pruritus, Denies lesions, Denies rash and Denies jaundice Neuro Reports Normal hearing present, Denies Abnormal speech present and Reports paresthesias Psych Reports anxiety Endo Reports fatigue Aller/Immun Reports GI upset with certain foods, Denies throat swelling and Denies tongue swelling Physical Exam Vital Signs: Last Vital Signs Pulse 91 04/02/25 09:59 BP 184/88 H 04/02/25 09:59 Pulse Ox 94 04/02/25 09:59 Oxygen Delivery Method Room Air 04/02/25 09:59 BMI result Body Mass Index 18.2 Const General: cooperative, no acute distress, well developed and well groomed Nutritional Appearance: well nourished and thin Orientation/consciousness: oriented to person, oriented to place and oriented to time Limitations: No language barrier HEENT Head: Yes normocephalic and Yes atraumatic Eyes General: appearance normal, both eyes and all related structures Pupils: Equal, round and reactive pupils present Neck Neck: Yes normal visual inspection and Yes no lymphadenopathy Thyroid: Thyroid normal Resp Effort & Inspection: normal respiratory effort and able to speak in complete sentences Auscultation: wheezes inspiratory wheezes and right lower Cardio Rate: regular rate Rhythm: regular rhythm Heart sounds: Normal, physiologic split S2 sound present Peripheral pulses: radial pulses present and posterior tibial pulses present GI Inspection: No distended and No Abdominal panniculus present Palpation (GI): Soft to palpation, Tenderness to palpation present (GI) in the LLQ and periumbilically, no guarding, not rigid and No hepatosplenomegaly present Percussion: Yes normal to percussion Auscultation: Hyperactive bowel sounds present Rectal Exam - Female: deferred Abdomen image: 2 1. surgical scars Skin General skin exam: no rashes or lesions noted, turgor normal, skin not dry, no jaundice, No spider nevi and no striae Rashes: no rashes Nails: normal Neuro General: oriented to person, oriented to place and oriented to time Cranial nerves: Yes Equal, round and reactive pupils present and Yes Normal hearing present Speech: No Abnormal speech present Extrem General: Yes normal to inspection, No clubbing, No cyanosis and No edema Psych Appearance: grossly normal and well kempt Mental Status: mental status grossly normal Speech and movement: Normal speech and movement present Affect: Labile affect present, Sad affect present and Anxious affect present Attitude: cooperative Thought process: Normal thought process present and not confabulating Thought content: Normal thought content present Insight: Fair insight present (Psych) and Limited insight present (Psych) Judgement: Fair judgement present (Psych) and Limited judgement present (Psych) Results Reviewed Results Reviewed: Laboratory Tests 03/30/25 03/30/25 11:42 16:05 WBC 5.3 Hgb 14.8 Hct 42.9 Plt Count 335 Estimated GFR > 60 Total Bilirubin 0.7 Direct Bilirubin 0.2 AST 43 H ALT 21 Alkaline Phosphatase 82 Stool Occult Blood NEGATIVE 03/30/25-[address]: Sergey Tyson MD ORDERED: [facility] w Micros QUERIES: Source: Urine, Clean Catch Test Result Flag Reference Ur Color Yellow Ur Appear Clear PH >= 9.0 5.0-9.0 Ur Glu Negative Negative mg/dL Urine Blood Negative Negative Spec [place] Ur 1.015 1.005-1.025 Urine Protein 30 (1+) H Neg-Trace mg/dL Urine Ketones 40 Negative mg/dL Ur Nitrite Negative Negative Ur Eduardo Esterase Negative Negative Ur RBC 0-2 0-2 /HPF Ur WBC 0-5 0-5 /HPF Ur Squam Epi 0-2 0-2 /HPF Ur Bact None Seen None Seen Ur Hyaline Front Desk 0-2 0-2 /LPF US OF ABD 03/30/25 FINDINGS: Gallbladder is fluid-filled. No pericholecystic fluid collection or gallbladder wall thickening. Common bile duct measures 8 mm. No intraluminal abnormality. No gross ascites. US/US abdomen limited IMPRESSION: No cholelithiasis. No choledocholithiasis. CT ABD AND PELVIS FINDINGS: Inadequate evaluation of the intra-abdominal organs and vascular structures due to lack of IV contrast. LUNG BASES: Multifocal patchy pulmonary groundglass, both lower lung lobes lingula and right middle lung lobe. LIVER, GALLBLADDER, AND BILIARY TREE: Liver measures 13 cm. No intrahepatic biliary ductal dilatation. No pericholecystic fluid collection or gallbladder wall thickening. Common bile duct measures 1 cm in maximum diameter and tapers at the junction with the second portion of the duodenum. No intraluminal calcifications. PANCREAS: No peripancreatic fluid collection. No main pancreatic ductal dilatation. SPLEEN: 9 cm. ADRENAL GLANDS: No nodular lesions. KIDNEYS AND URETERS: Multiple, less than 2 mm calcifications throughout the pelvicalyceal systems both kidneys. No hydronephrosis in either kidney. 2 cm exophytic cystic lesion lower pole left kidney. BLADDER: Fluid-filled. GASTROINTESTINAL TRACT: Appendix is retrocecal and normal. Abundant stool. No intestinal obstruction pattern. No pneumatosis intestinalis. No pneumoperitoneum. Trace amount of free fluid in the cul-de-sac. No fluid collections in the peritoneal cavity. ABDOMINAL WALL: No gross umbilical hernia. LYMPH NODES: Nonspecific mildly prominent mesenteric and retroperitoneum. VASCULAR: Calcified plaques throughout the abdominal aorta wall and iliac arteries mesenteric arteries splenic artery and the origin of the main renal arteries. PELVIC VISCERA: Inadequate evaluation. OSSEOUS STRUCTURES: Probable pectus excavatum. Mild to moderate multilevel thoracolumbar spondylosis. Status post intervertebral disc spacer at L5-S1 resulting in arthrodesis. Grade 1 anterolisthesis L3-4 on a degenerative basis. Osteopenia versus osteoporosis. Degenerative changes in the coxofemoral joints and sacroiliac joints. CT/CT abdomen pelvis wo IV con IMPRESSION: Bilateral multifocal pneumonia. Nonobstructing nephrolithiasis. Cystic lesion, left kidney. Prominent common bile duct with questionable stricture in the center of Oddi. Grade 1 anterolisthesis L3-4 on a degenerative basis. CT [place]VIS [facility] FINDINGS: Visualized Chest: Included lung bases are clear. No basilar pleural effusion. Liver: Within normal limits for noncontrast technique Gallbladder: No CT evidence of gallbladder pathology. Bile ducts: Common bile duct is dilated measuring 10 mm, similar to the prior exam. Spleen: Within normal limits for noncontrast technique Pancreas: Within normal limits for noncontrast technique Adrenal glands: No suspicious nodule Kidneys and ureters: Multiple small (2 3 mm) nonobstructing renal calculi bilaterally which are similar in size and distribution. No evidence of hydronephrosis, hydroureter or ureteral calculus. No evidence of renal contour abnormality. Bladder: Within normal limits for technique Reproductive organs: No evidence of bulky pelvic mass. Stomach, small bowel, and large bowel: Detailed evaluation is suboptimal without enteral opacification. Small and large bowel loops are normal in caliber. Stomach is normally distended. Appendix: Normal in caliber Peritoneum and retroperitoneum: No ascites or pneumoperitoneum. Lymph nodes: No enlarged lymph nodes. Blood vessels: Moderate atherosclerotic vascular calcification. No aortic aneurysm. Abdominal and pelvic wall: Unremarkable. Bones: No acute abnormality. Bones are demineralized in appearance. Fusion hardware at the lumbosacral junction. IMPRESSION: Small nonobstructing renal calculi bilaterally similar in configuration to the prior exam. No evidence of hydronephrosis or ureteral calculus. REVIEW OF DISCHARGE FROM [facility] VISIT 03/2025 (APPARENTLY DISCUSSED WITH DR. BELLO) Discharge Clinical Impression: Abdominal pain, Common bile duct dilatation, Pneumonia Patient Disposition: Home, Self-Care Instructions: Abdominal Pain (ED), Pneumonia (ED) Additional Instructions: Your blood work is reassuring. Your urine shows small evidence of dehydration. Make sure you are staying hydrated at home. Your CAT scan is showing multifocal pneumonia. Due to your continued productive cough azithromycin as an antibiotic please take as prescribed Your common bile duct is also prominent. You need to follow-up outpatient with Gastroenterology. Call to make an appointment If her symptoms persist or worsen, pain becomes constant/unbearable, you have fever, you are unable to eat or drink return to the ED Prescriptions: New azithromycin 250 mg tablet See Rx Instructions .ROUTE .COMPLEX Qty: 6 0RF Rx Instructions: take 500 mg today (day 1), then 250 mg for 4 days (days 2-5) Assessment & Plan Assessment & Plan (1) RUQ abdominal pain: Code(s): R10.11 - Right upper quadrant pain Category: Medical (2) Fatty stools: Code(s): K90.9 - Intestinal malabsorption, unspecified Category: Medical (3) H. pylori infection: Comment: treated twice at [facility] Code(s): A04.8 - Other specified bacterial intestinal infections Category: Medical (4) Diarrhea: Code(s): R19.7 - Diarrhea, unspecified Category: Medical (5) Adult failure to thrive: Code(s): R62.7 - Adult failure to thrive Category: Medical (6) Weight loss, abnormal: Code(s): R63.4 - Abnormal weight loss Category: Medical Plan She is today with her daughter who is supportive. She was seen 03/30/2025 in our ER. She has been seen by [facility] for many years. She has a LLQ pain for about 4 years, but her current GI just skips over it. She also has greasy, orange stools and at times RUQ pain. She says her GB was open 4 cm w/o any plan or a dx. When she eats, she has force herself to eat because if she eats she will have severe pain in the LLQ about 24 mis after eating. It starts as a pressure that ramps up and then it will move across the lower abdomen and to her entire right upper quad. The pain will last all day. It will star with nausea, but she even if she does not eat, but is worse with coffee and food. Even water. He has a hx of H pylori, and it was treated w/o success. She says she was treated for it twice. She dehydrates easily as she can not push fluids. Her stool are mostly soft and gelatin like and about 4 times a month they are orange and diarrheal. She will also have severe burning across the lower abdomen. 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 She has dysphagia of the upper esophagus but also sticking at the GE jxn. She has not had any dilation or mention of esophageal manometry or heard the term achalasia. (however review of note seems to indicate she had an esophageal manometry so I will look for these results) She has not had food allergy testing, but trial of bentyl caused urinary retention and leg swelling. She had an EGD and she was told her GE jxn was too tight but they were not going to do anything about it. Colonoscopies only TA's. She apparently suffered for y ears w/o anyone thinking about H pylori or and EGD. They are very worried about her general nutrition and ability to continue with these problems and not have her general health deteriorate. She is currently being treated for pneumonia and is on antibiotics. She is always fatigued. She has been seen at various hospitals including [facility] and [facility]. Must request re please find records from [facility] Dr. Karlos Murry; [facility], [facility]? Phone (appointments): [phone]: ? ?Address: [address] [place], [place] [address] tel:[phone] She has lost 35 LBS over 3 years. This is very life limiting. Foods that really set it off are spicy foods, chocolate. and it is better with not eating and she will have 4-5 relief. LIquids are easier as are things like yogurts. Ensure not good sits like a cannonball. She was good for a while after HP treatment, but then returned. She has a stron FHX of GB disease. To her knowledge she has never had a HIDA scan. She HAS had a GES that was normal. Her dtr is concerned that she needs scheduled IV or nutritional therapy. THis is a consideration. HER mother suffered similar sx and of a bleeding ulcer and had severe TICS. She DOES have some atherosclerosis ? blood flow to gut. Mirian has chronic back pain and is on oxycodone but this does not help her abdominal pain. She also has had bad belt with nephrolithiasis with past year obstruction and hydronephrosis. Because she has difficulty drinking she has makes her more prone to the formation of renal stones. ROV 4 weeks Orders: Orders 2 Rast Allergen Today A04.8 - Other specified bacterial intestinal infections, K90.9 - Intestinal malabsorption, unspecified, R10.11 - Right upper quadrant pain C Reactive Protein Today K90.9 - Intestinal malabsorption, unspecified, R19.7 - Diarrhea, unspecified NM hepatobiliary w pharm Today A04.8 - Other specified bacterial intestinal infections, K90.9 - Intestinal malabsorption, unspecified, R10.11 - Right upper quadrant pain Calprotectin, Fecal Today K90.9 - Intestinal malabsorption, unspecified, R19.7 - Diarrhea, unspecified Coding Level of Care Code New Pt Level 4 (77420) Diagnoses RUQ abdominal pain R10.11 Fatty stools K90.9 H. pylori infection A04.8 Diarrhea R19.7 Adult failure to thrive R62.7 Weight loss, abnormal R63.4 Time Spent (min) 60
--- OUTSIDE RECORDS SUMMARY | 2025-04-02 10:25 | XMS_ITS | Encounter Summary ---
Author Organization [facility] Address [facility] [employer] [facility] [address] [place] [address] Phone Care Team Providers Care Special Education Preschool Teacher Name Role Phone Omar Rocha MD Unavailable Sagar Leung MD Unavailable Yefri Hilliard MD Unavailable [phone] Karlos Murry MD Unavailable [phone] Sergey Tyson MD Primary Care Provider [phone] Apple Talavera MD Unavailable Sergey Tyson MD Unavailable Reason for Visit * Reason Onset Date Comments Referral 03/18/2025 Gastroenterology Encounter Details Date Type Department Care Team (Late st Contact Info) Description 03/18/2025 Telephone [facility] [place] Internal Medicine [address] [place], [place] [phone] Sergey Tyson MD [address] [place] [address] [email or web address] Referral (Gastroenterology) Social History Tobacco Use Types [...] Pt states she called weeks ago for business account leader referral but request says it was created on 03/18/25. She would like to know why this is not done yet. Please call [phone] documented in this encounter Plan of Treatment Upcoming Encounters Date Type Department Care Team (Late st Contact Info) Description 03/18/2024 Procedure Pass [address] [address] 04/13/2025 9:00 AM EDT Appointment [facility] Internal Medicine [address] [place] [address] Sergey Tyson MD [address] [place] [address] 04/21/2025 3:00 PM EDT Appointment [address] [address] Apple Talavera MD [address] [place] [address] 04/27/2025 8:30 AM EDT Office Visit [facility] at [address] [address] Apple Talavera MD [address] [place] [address] documented as of this encounter Visit Diagnoses Not on filedocumented in this encounter Additional Health Concerns Assessment Noted Time PHQ-9 Depression Total Score: 3 09/11/20 24 9:24 AM EDT PHQ-2 Depression Total Score: 1 09/11/20 24 9:24 AM EDT documented as of this encounter Care Teams Special Education Preschool Teacher Relationship Specialty Start Date End Date Sergey Tyson MD [address] [place] [address] PCP - General Internal Medicine 05/10/22 Omar Rocha MD [email or web address] Physical Medicine [email or web address] 05/08/21 Sagar Leung MD [address] [place] [address] [email or web address] Obstetrics and Gynecology 05/08/21 Yefri Hilliard MD [address] [place] [address] Endocrinology 05/08/21 Karlos Murry MD [address] [place] [address] Gastroenterology 02/27/22 Apple Talavera MD [address] [place] [address] Primary Oncologist Medical Oncology 02/19/23 Sergey Tyson MD [address] [place] [address] Insurance Assigned Provider 02/29/24 documented as of this encounter Additional Source Comments The information contained in this document represents components of the legal health record. It is not the complete legal health record.[facility]
--- OUTSIDE RECORDS SUMMARY | 2025-04-02 10:25 | XMS_ITS | Encounter Summary ---
Author Organization [facility] Address [facility] [email or web address] [facility] [address] [place] [address] Phone Care Team Providers Care Audio Experience Expert Name Role Phone Karlos Lyons MD Unavailable Omar Rocha MD Unavailable Sagar Leung MD Unavailable Yefri Hilliard MD Unavailable Karlos Murry MD Unavailable [phone] Sergey Tyson MD Primary Care Provider [phone] Apple Talavera MD Unavailable [phone] Sergey Tyson MD Unavailable Mena Mcwilliams RN Unavailable [phone] Encounter Details Date Type Department Care Team (Late st Contact Info) Description 09/13/2022 Procedure Pass [facility] Admitting Dept Virtual Department [address] [place], [place] [phone] Social History Tobacco Use Types Packs/Day Years [...] high school, GED, job training, learning the Ghanaian language, technical skills, or developing parenting skills)? [...] Contact Info) Description 03/18/2024 Procedure Pass [address] [address] 04/13/2025 9:00 AM EDT Appointment [facility] [place] Internal Medicine [address] [place] [address] Seregy Tyson MD 40 [place] [address] 04/21/2025 3:00 PM EDT Appointment [place] [address] [place] [address] Apple Talavera MD [address] [place] [address] [email or web address] 04/27/2025 8:30 AM EDT Office Visit [facility] at [address] [address] Apple Talavera MD [address] [place] [address] [email or web address] documented as of this encounter Visit Diagnoses Not on filedocumented in this encounter Additional Health Concerns Assessment Noted Time PHQ-2 Depression Total Score: 0 09/08/20 22 9:02 AM EDT documented as of this encounter Care Teams Audio Experience Expert Relationship Specialty Start Date End Date Sergey Tyson MD [address] [place] [address] [email or web address] PCP - General Internal Medicine 05/10/22 Karlos Lyons MD [address] [place] [address] [email or web address] Insurance Assigned Provider 02/23/17 03/02/23 Omar Rocha MD [address] [place] [address] [email or web address] and [email or web address] 05/08/21 Sagar Leung MD [address] [facility], [address] [place] [address] [email or web address] Obstetrics and Gynecology 05/08/21 Yefri Hilliard MD [address] [place] [address] Endocrinology 05/08/21 Karlos Murry MD [address] [place] [address] [email or web address] Gastroenterology 02/27/22 Apple Talavera MD [address] [place] [address] [email or web address] Primary Oncologist Medical Oncology 02/19/23 Sergey Tyson MD [address] [place] [address] [email or web address] Insurance Assigned Provider 02/29/24 Mena Mcwilliams, RN [address] [place] [address] [email or web address] iCMP Terminologist 11/13/23 12/11/23 documented as of this encounter Additional Source Comments The information contained in this document represents components of the legal health record. It is not the complete legal health record.[facility]
--- OUTSIDE RECORDS SUMMARY | 2025-04-02 10:25 | XMS_ITS | Encounter Summary ---
Author Organization [facility] Address [facility] [employer] [facility] [address] [place] [address] Phone Care Team Providers Care Meat Process Worker Name Role Phone Karlos Lyons MD Unavailable Omar Rocha MD Unavailable [phone] Sagar Leung MD Unavailable Karlos Lyons MD Primary Care Provider [phone] Yefri Hilliard MD Unavailable Karlos Murry MD Unavailable [phone] Sergey Tyson MD Primary Care Provider [phone] Apple Talavera MD Unavailable [phone] Sergey Tyson MD Unavailable Mena Mcwilliams RN Unavailable [phone] Encounter Details Date Type Department Care Team (Late st Contact Info) Description 05/07/2022 Procedure Pass [facility], Ct Scan - [address] [address] Social History Tobacco Use Types Packs/Day Years [...] high school, GED, job training, learning the [place] language, technical skills, or developing parenting skills)? [...] st Contact Info) Description 03/18/2024 Procedure Pass [facility] [address] [place] [address] 04/13/2025 9:00 AM EDT Appointment [facility] Internal Medicine [address] [place] [address] Sergey Tyson MD [address] [place] [address] [email or web address] 04/21/2025 3:00 PM EDT Appointment [facility], [address] [address] Appel Talavera MD [address] [place] [address] [email or web address] 04/27/2025 8:30 AM EDT Office Visit [facility] at [address] [address] Apple Talavera MD [address] [place] [address] [email or web address] documented as of this encounter Visit Diagnoses Not on filedocumented in this encounter Additional Health Concerns Infection Onset Date Last Indicated Resolved Time CoV-Risk 05/07/2022 05/07/2022 05/18/2022 1:24 AM EDT Assessment Noted Time PHQ-2 Depression Total Score: 2 05/05/20 10:17 AM EDT documented as of this encounter Care Teams Meat Process Worker Relationship Specialty Start Date End Date Karlos Lyons MD [address] [place] [address] [email or web address] PCP - General Internal Medicine 05/08/21 05/09/22 Sergey Tyson MD [address] [place] [address] [email or web address] PCP - General Internal Medicine 05/10/22 Karlos Lyons MD [address] [place] [address] [email or web address] Insurance Assigned Provider 02/23/17 03/02/23 Omar Rocha MD [address] [place] [address] [address] [place] [address] [email or web address] Physical Medicine and Rehabilitation 05/08/21 Sagar Leung MD [address] [facility] [place], [address] [place] [address] Obstetrics and Gynecology 05/08/21 Yefri Hilliard MD [address] [place] [address] Endocrinology 05/08/21 Karlos Murry MD [address] [place] [address] Gastroenterology 02/27/22 Apple Talavera MD [address] [place] [address] Primary Oncologist Medical Oncology 02/19/23 Sergey Tyson MD [address] [place] [address] Insurance Assigned Provider 02/29/24 Mena Mcwilliams, RN [address] [place] [address] [email or web address] iCMP Frame Coverer 11/13/23 12/11/23 documented as of this encounter Additional Source Comments The information contained in this document represents components of the legal health record. It is not the complete legal health record.[facility]
--- OUTSIDE RECORDS SUMMARY | 2025-04-02 10:25 | XMS_ITS | Encounter Summary ---
Author Organization [facility] Address Replaced by [facility] [address] [place] [address] Phone Care Team Providers Care Aviation Survival Technician Name Role Phone Omar Rocha MD Unavailable Sagar Leung MD Unavailable Yefri Hilliard MD Unavailable Karlos Murry MD Unavailable [phone] Sergey Tyson MD Primary Care Provider [phone] Apple Talavera MD Unavailable [phone] Sergey Tyson MD Unavailable Encounter Details Date Type Department Care Team (Late st Contact Info) Description 03/30/2025 Orders Only [facility] [place] Internal Medicine [address] [place] [address] Provider, MD Avelino [address] [place] [address] Social History Tobacco Use Types Packs/Day [...] st Contact Info) Description 03/18/2024 Procedure Pass [address] [address] 04/13/2025 9:00 AM EDT Appointment [facility] Internal Medicine 40 [place] [address] Sergey Tyson MD 40 [place] [address] 04/21/2025 3:00 PM EDT Appointment [address] [address] Apple Talavera MD [address] [place] [address] 04/27/2025 8:30 AM EDT Office Visit [facility] at [address] [address] Apple Talavera MD [address] [place] [address] [email or web address] documented as of this encounter Procedures Procedure [...] documented as of this encounter Care Teams Aviation Survival Technician Relationship Specialty Start Date End Date Sergey Tyson MD 40 [place] [address] [email or web address] PCP - General Internal Medicine 05/10/22 Omar Rocha MD [email or web address] Physical Medicine and Rehabilitation 05/08/21 Sagar Leung MD [address] [place] [address], [address] [address] [email or web address] Obstetrics and Gynecology 05/08/21 Yefri Hilliard MD [address] [place] [address] Endocrinology 05/08/21 Karlos Murry MD [address] [place] [address] Gastroenterology 02/27/22 Apple Talavera MD [address] [place] [address] Primary Oncologist Medical Oncology 02/19/23 Sergey Tyson MD [address] [place] [address] Insurance Assigned Provider 02/29/24 documented as of this encounter Additional Source Comments The information contained in this document represents components of the legal health record. It is not the complete legal health record.[facility]
--- OUTSIDE RECORDS SUMMARY | 2025-04-02 10:25 | XMS_ITS | Encounter Summary ---
Author Organization [facility] Address [facility] [employer] [facility] [address] [place] [address] Phone Care Team Providers Care Rum Processing Operator Name Role Phone Karlos Lyons MD Unavailable Omar Rocha MD Unavailable Sagar Leung MD Unavailable Karlos Lyons MD Primary Care Provider Yefri Hilliard MD Unavailable Karlos Murry MD Unavailable [phone] Sergey Tyson MD Primary Care Provider Apple Talavera MD Unavailable [phone] Sergey Tyson MD Unavailable Mena Mcwilliams RN Unavailable [phone] Encounter Details Date Type Department Care Team (Late st Contact Info) Description 02/27/2022 Procedure Pass [address] [address] Social History Tobacco Use Types Packs/Day Years [...] st Contact Info) Description 03/18/2024 Procedure Pass [address] [address] 04/13/2025 9:00 AM EDT Appointment [facility] Internal Medicine [address] [place] [address] Sergey Tyson MD [address] [place] [address] 04/21/2025 3:00 PM EDT Appointment [address] [address] Apple Talavera MD [address] [place] [email or web address] 04/27/2025 8:30 AM EDT Office Visit [facility] at [address] [address] Apple Talavera MD [address] [place] [address] documented as of this encounter Visit Diagnoses Not on filedocumented in this encounter Additional Health Concerns Infection Onset Date Last Indicated Resolved Time CoV-Risk 05/07/2022 05/07/2022 05/18/2022 1:24 AM EDT Assessment Noted Time PHQ-2 Depression Total Score: 0 01/28/20 6:26 PM EST documented as of this encounter Care Teams Rum Processing Operator Relationship Specialty Start Date End Date Karlos Lyons MD [address] [address] [email or web address] PCP - General Internal Medicine 05/08/21 05/09/22 Sergey Tyson MD [address] [place] [address] [email or web address] PCP - General Internal Medicine 05/10/22 Karlos Lyons MD [address] [address] [email or web address] Insurance Assigned Provider 02/23/17 03/02/23 Omar Rocha MD [address] [place] [address] [email or web address] Physical Medicine and Rehabilitation 05/08/21 Sagar Leung MD [address] [place] [address] [email or web address] Obstetrics and Gynecology 05/08/21 Yefri Hilliard MD [address] [place] [address] Endocrinology 05/08/21 Karlos Murry MD [address] [place] [address] [email or web address] Gastroenterology 02/27/22 Apple Talavera MD [address] [place] [address] [email or web address] Primary Oncologist Medical Oncology 02/19/23 Sergey Tyson MD [address] [place] [address] [email or web address] Insurance Assigned Provider 02/29/24 Mena Mcwilliams, RN [address] [place] [address] [email or web address] iCMP Crocheter Hand 11/13/23 12/11/23 documented as of this encounter Additional Source Comments The information contained in this document represents components of the legal health record. It is not the complete legal health record.[facility]
--- OUTSIDE RECORDS SUMMARY | 2025-04-02 10:25 | XMS_ITS | Encounter Summary ---
Author Organization [facility] Address [address] [facility] [address] [place] [address] Phone Care Team Providers Care Divinity Teacher Name Role Phone Omar Rocha MD Unavailable Sagar Leung MD Unavailable Yefri Hilliard MD Unavailable [phone] Karlos Murry MD Unavailable Sergey Tyson MD Primary Care Provider Apple Talavera MD Unavailable Sergey Tyson MD Unavailable Reason for Visit * Reason Onset Date Comments Results 03/23/2025 After hours call pneumonia 03/23/2025 Encounter Details Date Type Department Care Team (Late st Contact Info) Description 03/23/2025 Telephone [facility] [address] [place] [address] Sabrina Talavera PA-C [address] [place] [address] [email or web address] Results (After hours call); pneumonia Social History [...] note were not included. Sergey Tyson MD [facility] [place] Rn2 minutes ago (9:37 AM) [...] timeline to feel better - please advise [phone] * Kacy Altman RN - 03/25/2025 9:10 [...] be called into pharmacy - please advise [phone] * Kacy Altman RN - 03/24/2025 8:46 [...] patient multiple times however goes right to [facility] to call back and provide alternate number. Medications prescribed: None documented in this encounter Plan of Treatment Upcoming Encounters Date Type Department Care Team (Late st Contact Info) Description 03/18/2024 Procedure Pass [address] [address] 04/13/2025 9:00 AM EDT Appointment [facility] Internal Medicine [address] [place] [address] Sergey Tyson MD [address] [place] [address] 04/21/2025 3:00 PM EDT Appointment [address] [address] Apple Talavera MD [address] [place] [address] 04/27/2025 8:30 AM EDT Office Visit [facility] at [address] [address] Apple Talavera MD [address] [place] [address] [email or web address] documented as of this encounter Visit Diagnoses Not on filedocumented in this encounter Additional Health Concerns Assessment Noted Time PHQ-9 Depression Total Score: 3 09/11/20 24 9:24 AM EDT PHQ-2 Depression Total Score: 1 09/11/20 24 9:24 AM EDT documented as of this encounter Care Teams Divinity Teacher Relationship Specialty Start Date End Date Sergey Tyson MD [address] [place] [address] [email or web address] PCP - General Internal Medicine 05/10/22 Omar Rocha MD [email or web address] Physical Medicine and Rehabilitation 05/08/21 Sagar Leung MD [address] [address] [email or web address] Obstetrics and Gynecology 05/08/21 Yefri Hilliard MD [address] [place] [address] Endocrinology 05/08/21 Karlos Murry MD [address] [place] [address] Gastroenterology 02/27/22 Apple Talavera MD 30 [place] [address] [email or web address] Primary Oncologist Medical Oncology 02/19/23 Sergey Tyson MD [address] [place] [address] [email or web address] Insurance Assigned Provider 02/29/24 documented as of this encounter Additional Source Comments The information contained in this document represents components of the legal health record. It is not the complete legal health record.[facility]
--- OUTSIDE RECORDS SUMMARY | 2025-04-02 10:25 | XMS_ITS | Encounter Summary ---
Author Organization [facility] Address [facility]ly [facility] [employer] [facility] [address] [place] [address] Phone Care Team Providers Care Garage Supervisor Name Role Phone Karlos Lyons MD Primary Care Provider Karlos Lyons MD Unavailable [phone] Omar Rocha MD Unavailable [phone] Sagar Leung MD Unavailable Karlos Lyons MD Primary Care Provider + [phone] Yefri Hilliard MD Unavailable [phone] Karlos Murry MD Unavailable [phone] Sergey Tyson MD Primary Care Provider Apple Talavera MD Unavailable [phone] Sergey Tyson MD Unavailable Mena Mcwilliams RN Unavailable [phone] Encounter Details Date Type Department Care Team (Late st Contact Info) Description 08/06/2020 Procedure Pass [facility], [address] [id number] Social History Tobacco Use Types Packs/Day Years [...] Contact Info) Description 03/18/2024 Procedure Pass [address] [address] 04/13/2025 9:00 AM EDT Appointment [facility] Internal Medicine [address] [place] [address] Sergey Tyson MD [address] [place] [address] 04/21/2025 3:00 PM EDT Appointment [address] [address] Apple Talavera MD [address] [place] [address] 04/27/2025 8:30 AM EDT Office Visit [facility] at [address] [address] Apple Talavera MD [address] [place] [address] documented as of this encounter Visit Diagnoses Not on filedocumented in this encounter Additional Health Concerns Infection Onset Date Last Indicated Resolved Time CoV-Risk 05/07/2022 05/07/2022 05/18/2022 1:24 AM EDT Assessment Noted Time PHQ-2 Depression Total Score: 0 04/28/20 12:48 PM EDT documented as of this encounter Care Teams Garage Supervisor Relationship Specialty Start Date End Date Karlos Lyons MD [address] [address] [email or web address] PCP - General Internal Medicine 07/14/14 05/07/21 Karlos Lyons MD [address] [place] [address] [email or web address] PCP - General Internal Medicine 05/08/21 05/09/22 Sergey Tyson MD [address] [place] [address] [email or web address] PCP - General Internal Medicine 05/10/22 Karlos Lyons MD [address] [place] [address] [email or web address] Insurance Assigned Provider 02/23/17 03/02/23 Omar Rocha MD [address] [place] [address] [email or web address] Physical Medicine and Rehabilitation 05/08/21 Sagar Leung MD [address] [place] [address], [address] [place] [address] [email or web address] Obstetrics and Gynecology 05/08/21 Yefri Hilliard MD [address] [place] [address] Endocrinology 05/08/21 Karlos Murry MD [address] [place] [address] [email or web address] Gastroenterology 02/27/22 Apple Talavera MD [address] [place] [address] [email or web address] Primary Oncologist Medical Oncology 02/19/23 Sergey Tyson MD [address] [place] [address] [email or web address] Insurance Assigned Provider 02/29/24 Mena Mcwilliams, RN [address] [place] [address] [email or web address] [employer] Nail Maker 11/13/23 12/11/23 documented as of this encounter Additional Source Comments The information contained in this document represents components of the legal health record. It is not the complete legal health record.[facility]
--- OUTSIDE RECORDS SUMMARY | 2025-04-02 10:26 | XMS_ITS | Encounter Summary ---
Author Organization [facility] Address [address] [place] [address] [address] [place] [address] Phone Care Team Providers Care Porcelain Finish Sprayer Name Role Phone Karlos Lyons MD Primary Care Provider Karlos Lyons MD Unavailable [phone] Omar Rocha MD Unavailable [phone] Sagar Lenug MD Unavailable Karlos Lyons MD Primary Care Provider + [phone] Yefri Hilliard MD Unavailable [phone] Karlos Murry MD Unavailable [phone] Sergey Tyson MD Primary Care Provider Apple Talavera MD Unavailable [phone] Sergey Tyson MD Unavailable Mena Mcwilliams RN Unavailable [phone] Encounter Details Date Type Department Care Team (Late st Contact Info) Description 12/02/2017 Ancillary Orders [facility], X[facility]Ray [facility] [address] [place] [address] Omar Rocha MD [address] [place] [address] [email or web address] Social History Tobacco [...] st Contact Info) Description 03/18/2024 Procedure Pass [address] [address] 04/13/2025 9:00 AM EDT Appointment [facility] Internal Medicine [address] [place] [address] Sergey Tyson MD 40 [place] [address] 04/21/2025 3:00 PM EDT Appointment [address] [address] Apple Talavera MD [address] [place] [address] [phone] 04/27/2025 8:30 AM EDT Office Visit [facility] at [address] [address] Apple Talavera MD [address] [place] [address] [phone] documented as of this encounter Results * [...] documented as of this encounter Care Teams Porcelain Finish Sprayer Relationship Specialty Start Date End Date Karlos Lyons MD [address] [place] [address] [email or web address] PCP - General Internal Medicine 07/14/14 05/07/21 Karlos Lyons MD [address] [place] [address] [email or web address] PCP - General Internal Medicine 05/08/21 05/09/22 Sergey Tyson MD [address] [place] [address] [email or web address] PCP - General Internal Medicine 05/10/22 Karlos Lyons MD [address] [place] [address] [email or web address] Insurance Assigned Provider 02/23/17 03/02/23 Omar Rocha MD [address] [place] [address] [email or web address] Physical Medicine and Rehabilitation 05/08/21 Sagar Leung MD [address] [place] [address], [address] [place] [address] [email or web address] Obstetrics and Gynecology 05/08/21 Yefri Hilliard MD [address] [place] [address] Endocrinology 05/08/21 Karlos Murry MD [address] [place] [address] [email or web address] Gastroenterology 02/27/22 Apple Talavera MD [address] [place] [address] [email or web address] Primary Oncologist Medical Oncology 02/19/23 Sergey Tyson MD [address] [place] [address] [email or web address] Insurance Assigned Provider 02/29/24 Mena Mcwilliams, RN [address] [place] [address] [email or web address] [employer] Supervisor 11/13/23 12/11/23 documented as of this encounter Additional Source Comments The information contained in this document represents components of the legal health record. It is not the complete legal health record.[facility]
--- OUTSIDE RECORDS SUMMARY | 2025-04-02 10:26 | XMS_ITS | Encounter Summary ---
Author Organization [facility] Address [facility] [address] [place] [address] Phone Care Team Providers Care Oracle Adf Developer Name Role Phone Omar Rocha MD Unavailable [phone] Sagar Leung MD Unavailable Yefri Hilliard MD Unavailable Karlos Murry MD Unavailable Sergey Tyson MD Primary Care Provider Apple Talavera MD Unavailable [phone] Sergey Tyson MD Unavailable Encounter Details Date Type Department Care Team (Latest Contact Info) Description 12/27/2023 Transcribe Orders Virtual Department 30 [place] [address] Karlos Murry MD [address] [place], [place] [phone] [email or web address] Weight loss (Primary Dx) Social History Tobacco [...] high school, GED, job training, learning the Sierra Leonean language, technical skills, or developing parenting skills)? [...] st Contact Info) Description 03/18/2024 Procedure Pass [address] [address] 04/13/2025 9:00 AM EDT Appointment [facility] Medical [facility] Internal Medicine 40 [place] [address] Sergey Tyson MD 40 [place] [address] 04/21/2025 3:00 PM EDT Appointment [facility], [facility]- [address] [address] Apple Talavera MD [address] [place] [address] 04/27/2025 8:30 AM EDT Office Visit [facility] at [address] [address] Apple Talavera MD [address] [place] [address] [email or web address] documented as of this encounter Visit Diagnoses Diagnosis Weight loss- Primary Loss of weight documented in this encounter Additional Health Concerns Assessment Noted Time PHQ-2 Depression Total Score: 0 01/28/20 23 6:26 PM EST documented as of this encounter Care Teams Oracle Adf Developer Relationship Specialty Start Date End Date Sergey Tyson MD [address] [place] [address] PCP - General Internal Medicine 05/10/22 Omar Rocha MD [email or web address] Physical Medicine and Rehabilitation 05/08/21 Sagar Leung MD 22 [facility], [address] [place] [address] [email or web address] Obstetrics and Gynecology 05/08/21 Yefri Hilliard MD [address] [place] [address] Endocrinology 05/08/21 Karlos Murry MD [address] [place] [address] [email or web address] Gastroenterology 02/27/22 Apple Talavera MD [address] [place] [address] [email or web address] Primary Oncologist Medical Oncology 02/19/23 Sergey Tyson MD [address] [place] [address] [email or web address] Insurance Assigned Provider 02/29/24 documented as of this encounter Additional Source Comments The information contained in this document represents components of the legal health record. It is not the complete legal health record.[facility]
--- OUTSIDE RECORDS SUMMARY | 2025-04-02 10:26 | XMS_ITS | Encounter Summary ---
Author Organization [facility] Address [facility] Appointuit [facility] [address] [place] [address] Phone Care Team Providers Care Doll Wigs Hackler Name Role Phone Karlos Lyons MD Unavailable Omar Rocha MD Unavailable Sagar Leung MD Unavailable Yefri Hilliard MD Unavailable [phone] Karlos Murry MD Unavailable [phone] Sergey Tyson MD Primary Care Provider Apple Talavera MD Unavailable [phone] Sergey Tyson MD Unavailable Mena Mcwilliams RN Unavailable [phone] Encounter Details Date Type Department Care Team (Late st Contact Info) Description 05/31/2022 Procedure Pass OR Admitting Dept - Virtual Department 30 [place] [address] Social History Tobacco Use Types Packs/Day Years [...] high school, GED, job training, learning the Peruvian language, technical skills, or developing parenting skills)? [...] Contact Info) Description 03/18/2024 Procedure Pass [address] [address] 04/13/2025 9:00 AM EDT Appointment [facility] Internal Medicine 40 [place] [address] Sergey Tyson MD 40 [place] [address] 04/21/2025 3:00 PM EDT Appointment [place] [address] [place] [address] Apple Talavera MD [address] [place] [address] [email or web address] 04/27/2025 8:30 AM EDT Office Visit [facility] at [address] [address] Apple Talavera MD [address] [place] [address] [email or web address] documented as of this encounter Visit Diagnoses Not on filedocumented in this encounter Additional Health Concerns Assessment Noted Time PHQ-2 Depression Total Score: 2 05/05/20 22 10:17 AM EDT documented as of this encounter Care Teams Doll Wigs Hackler Relationship Specialty Start Date End Date Sergey Tyson MD [address] [place] [address] [email or web address] PCP - General Internal Medicine 05/10/22 Karlos Lyons MD [address] [place] [address] [email or web address] Insurance Assigned Provider 02/23/17 03/02/23 Omar Rocha MD [address] [place] [address] [email or web address] Physical Medicine and Rehabilitation 05/08/21 Sagar Leung MD 22 [facility], [address] [place] [address] [email or web address] Obstetrics and Gynecology 05/08/21 Yefri Hilliard MD 55 [place] [address] Endocrinology 05/08/21 Karlos Murry MD [address] [place] [address] [email or web address] Gastroenterology 02/27/22 Apple Talavera MD [address] [place] [email or web address] Primary Oncologist Medical Oncology 02/19/23 Sergey Tyson MD [address] [place] [address] [email or web address] Insurance Assigned Provider 02/29/24 Mena Mcwilliams, RN [address] [place] [address] [email or web address] [employer] Physics Tutor 11/13/23 12/11/23 documented as of this encounter Additional Source Comments The information contained in this document represents components of the legal health record. It is not the complete legal health record.[facility]
--- OUTSIDE RECORDS SUMMARY | 2025-04-02 10:26 | XMS_ITS | Encounter Summary ---
Author Organization [facility] Address [address] [place] [address] [address] [place] [address] Phone Care Team Providers Care Cut In Worker Name Role Phone Omar Rocha MD Unavailable [phone] Sagar Leung MD Unavailable Yefri Hilliard MD Unavailable Karlos Murry MD Unavailable Sergey Tyson MD Primary Care Provider Apple Talavera MD Unavailable Sergey Tyson MD Unavailable Reason for Referral * Outpatient Procedure - Closed Specialty Diagnoses / Procedures Referred By Jessica balbuena Referred To Contact Radiology Diagnoses Weight loss Procedures US Abdomen Arteries Duplex Limited Karlos Murry MD 10 [place] [address] Email: Referral ID Status Reason Start Date Expiration Date Visits Re quested Visits Authorized [id number] Closed 02/03/2024 1 1 Encounter Details Date Type Department Care Team (Latest Contact Info) Description 02/03/2024 Transcribe Orders Virtual Department 30 [place] [address] Karlos Murry MD [address] [place] [address] Weight loss (Primary Dx) Social History Tobacco [...] high school, GED, job training, learning the [place]araguan language, technical skills, or developing parenting skills)? [...] st Contact Info) Description 03/18/2024 Procedure Pass [address] [address] 04/13/2025 9:00 AM EDT Appointment [facility] Internal Medicine [address] [place] [address] Sergey Tyson MD 40 [place] [address] 04/21/2025 3:00 PM EDT Appointment [address] [address] Apple Talavera MD [address] [place] [address] 04/27/2025 8:30 AM EDT Office Visit [facility] at [address] [address] Apple Talavera MD [address] [place] [address] documented as of this encounter Results * [...] documented as of this encounter Care Teams Cut In Worker Relationship Specialty Start Date End Date Sergey Tyson MD [address] [place] [address] PCP - General Internal Medicine 05/10/22 Omar Rocha MD [email or web address] Physical Medicine and Rehabilitation 05/08/21 Sagar Leung MD [address] [place] [address], [address] [place] [address] [email or web address] Obstetrics and Gynecology 05/08/21 Yefri Hilliard MD [address] [place] [address] Endocrinology 05/08/21 Karlos Murry MD [address] [place] [address] [email or web address] Gastroenterology 02/27/22 Apple Talavera MD [address] [place] [address] [email or web address] Primary Oncologist Medical Oncology 02/19/23 Sergey Tyson MD [address] [place] [address] [email or web address] Insurance Assigned Provider 02/29/24 documented as of this encounter Additional Source Comments The information contained in this document represents components of the legal health record. It is not the complete legal health record.[facility]
--- OUTSIDE RECORDS SUMMARY | 2025-04-02 10:26 | XMS_ITS | Encounter Summary ---
Author Organization [facility] Address [facility] [employer] [facility] [address] [place] [address] Phone Care Team Providers Care Foundation Director Name Role Phone Karlos Lyons MD Unavailable Omar Rocha MD Unavailable Sagar Leung MD Unavailable Karlos Lyons MD Primary Care Provider [phone] Yefri Hilliard MD Unavailable Karlos Murry MD Unavailable [phone] Sergey Tyson MD Primary Care Provider Apple Talavera MD Unavailable [phone] Sergey Tyson MD Unavailable Mena Mcwilliams RN Unavailable [phone] Encounter Details Date Type Department Care Team (Latest Contact Info) Description 10/25/2021 Transcribe Orders Virtual Department 30 [place], [place] [phone] Karlos Lyons MD [address] [phone] [email or web address] Breast screening (Primary Dx) Social History [...] st Contact Info) Description 03/18/2024 Procedure Pass [address] [address] 04/13/2025 9:00 AM EDT Appointment [facility] Medical [facility] Internal Medicine [address] [place] [address] Sergey Tyson MD [address] [place] [address] [email or web address] 04/21/2025 3:00 PM EDT Appointment [address] [address] Apple Talavera MD [address] [place] [address] 04/27/2025 8:30 AM EDT Office Visit [facility] at [address] [address] Apple Talavera MD [address] [place] [address] [phone] documented as of this encounter Results * [...] documented as of this encounter Care Teams Foundation Director Relationship Specialty Start Date End Date Karlos Lyons MD [address] [place] [address] [email or web address] PCP - General Internal Medicine 05/08/21 05/09/22 Sergey Tyson MD [address] [place] [address] [email or web address] PCP - General Internal Medicine 05/10/22 Karlos Lyons MD [address] [place] [address] [email or web address] Insurance Assigned Provider 02/23/17 03/02/23 Omar Rocha MD [address] [place] [address] [email or web address] Physical Medicine and Rehabilitation 05/08/21 Sagar Leung MD [address] [place] [address], [facility] [address] [place] [address] [email or web address] Obstetrics and Gynecology 05/08/21 Yefri Hilliard MD [address] [place] [address] Endocrinology 05/08/21 Karlos Murry MD [address] [place] [address] [email or web address] Gastroenterology 02/27/22 Apple Talavera MD 30 [place] [address] [email or web address] Primary Oncologist Medical Oncology 02/19/23 Sergey Tyson MD 40 [place] [address] [email or web address] Insurance Assigned Provider 02/29/24 Mena Mcwilliams, RN [address] [place] [address] [email or web address] [facility] 11/13/23 12/11/23 documented as of this encounter Additional Source Comments The information contained in this document represents components of the legal health record. It is not the complete legal health record.[facility]
--- OUTSIDE RECORDS SUMMARY | 2025-04-02 10:26 | XMS_ITS | Encounter Summary ---
Author Organization [facility] Address [facility] [employer] [facility] [address] [place] [address] Phone Care Team Providers Care Php Web Developer Name Role Phone Omar Rocha MD Unavailable Sagar Leung MD Unavailable Yefri Hilliard MD Unavailable Karlos Murry MD Unavailable [phone] Sergey Tyson MD Primary Care Provider [phone] Apple Talavera MD Unavailable [phone] Sergey Tyson MD Unavailable Encounter Details Date Type Department Care Team (Late st Contact Info) Description 10/30/2024 Procedure Pass [facility], [facility] Scan - [address] [address] Social History Tobacco Use Types Packs/Day Years [...] high school, GED, job training, learning the Iranian language, technical skills, or developing parenting skills)? [...] st Contact Info) Description 03/18/2024 Procedure Pass [address] [address] 04/13/2025 9:00 AM EDT Appointment [facility] Internal Medicine [address] [place] [address] Sergey Tyson MD [address] [place] [address] 04/21/2025 3:00 PM EDT Appointment [address] [address] Apple Talavera MD [address] [place] [address] 04/27/2025 8:30 AM EDT Office Visit [facility] at [address] [address] Apple Talavera MD [address] [place] [address] documented as of this encounter Visit Diagnoses Not on filedocumented in this encounter Additional Health Concerns Assessment Noted Time PHQ-9 Depression Total Score: 3 09/11/20 9:24 AM EDT PHQ-2 Depression Total Score: 1 09/11/20 9:24 AM EDT documented as of this encounter Care Teams Php Web Developer Relationship Specialty Start Date End Date Sergey Tyson MD [address] [place] [address] PCP - General Internal Medicine 05/10/22 Omar Rocha MD [email or web address] Physical Medicine and Rehabilitation 05/08/21 Sagar Leung MD [address] [place] [address] 102 [place] [address] Obstetrics and Gynecology 05/08/21 Yefri Hilliard MD [address] [place] [address] Endocrinology 05/08/21 Karlos Murry MD [address] [place] [address] [phone] Gastroenterology 02/27/22 Apple Talavera MD [address] [place] [address] Primary Oncologist Medical Oncology 02/19/23 Sergey Tyson MD [address] [place] [address] [email or web address] Insurance Assigned Provider 02/29/24 documented as of this encounter Additional Source Comments The information contained in this document represents components of the legal health record. It is not the complete legal health record.[facility]
--- OUTSIDE RECORDS SUMMARY | 2025-04-02 10:26 | XMS_ITS | Encounter Summary ---
Author Organization [facility] Address [facility] [employer] [facility] [address] [place] [address] Phone Care Team Providers Care Informatics Physician Name Role Phone Omar Rocha MD Unavailable [phone] Sagar Leung MD Unavailable Yefri Hilliard MD Unavailable Karlos Murry MD Unavailable Sergey Tyson MD Primary Care Provider Apple Talavera MD Unavailable Sergey Tyson MD Unavailable Encounter Details Date Type Department Care Team (Latest Contact Info) Description 03/09/2024 Transcribe Orders Virtual Department 30 [place] [address] Omar Rocha MD [address] [place] [address] [email or web address] Thoracic spine pain (Primary Dx) Social History [...] st Contact Info) Description 03/18/2024 Procedure Pass [facility], [address] [address] 04/13/2025 9:00 AM EDT Appointment [facility] Internal Medicine [address] [place] [address] Sergey Tyson MD 40 [place] [address] 04/21/2025 3:00 PM EDT Appointment [facility], [address] [address] Apple Talavera MD [address] [place] [address] 04/27/2025 8:30 AM EDT Office Visit [facility] at [address] [address] Apple Talavera MD [address] [place] [address] [email or web address] documented as of this encounter Results * [...] cervical spine ACDF construct. Procedure Note Abdirahman Srivastvaa MD - 03/17/2024 XR THORACIC SPINE 3 [...] documented as of this encounter Care Teams Informatics Physician Relationship Specialty Start Date End Date Sergey Tyson MD [address] [place] [address] [email or web address] PCP - General Internal Medicine 05/10/22 Omar Rocha MD [email or web address] Physical Medicine and Rehabilitation 05/08/21 Sagar Leung MD [address] [place] [address] 102 [place] [address] Obstetrics and Gynecology 05/08/21 Yefri Hilliard MD [address] [place] [address] Endocrinology 05/08/21 Karlos Murry MD [address] [place] [address] [email or web address] Gastroenterology 02/27/22 Apple Talavera MD [address] [place] [email or web address] Primary Oncologist Medical Oncology 02/19/23 Sergey Tyson MD [address] [place] [address] [email or web address] Insurance Assigned Provider 02/29/24 documented as of this encounter Additional Source Comments The information contained in this document represents components of the legal health record. It is not the complete legal health record.[facility]
--- OUTSIDE RECORDS SUMMARY | 2025-04-02 10:26 | XMS_ITS | Encounter Summary ---
Author Organization [facility] Address [facility] [employer] [facility] [address] [place] [address] Phone Care Team Providers Care Nascar Driver Name Role Phone Karlos Lyons MD Unavailable Omar Rocha MD Unavailable [phone] Sagar Leung MD Unavailable Karlos Lyons MD Primary Care Provider [phone] Yefri Hilliard MD Unavailable Karlos Murry MD Unavailable [phone] Sergey Tyson MD Primary Care Provider Apple Talavera MD Unavailable [phone] Sergey Tyson MD Unavailable Mena Mcwilliams RN Unavailable [phone] Encounter Details Date Type Department Care Team (Late st Contact Info) Description 01/23/2022 Procedure Pass [facility] Admitting Dept Virtual Department 30 [place] [address] Social History Tobacco Use Types Packs/Day Years [...] Contact Info) Description 03/18/2024 Procedure Pass [address] [address] 04/13/2025 9:00 AM EDT Appointment [facility] Internal Medicine [address] [place] [address] Sergey Tyson MD 40 [place] [address] 04/21/2025 3:00 PM EDT Appointment [address] [address] Apple Talavera MD [address] [place] [address] 04/27/2025 8:30 AM EDT Office Visit [facility] at [address] [address] Apple Talavera MD [address] [place] [address] documented as of this encounter Visit Diagnoses Not on filedocumented in this encounter Additional Health Concerns Infection Onset Date Last Indicated Resolved Time CoV-Risk 05/07/2022 05/07/2022 05/18/2022 1:24 AM EDT Assessment Noted Time PHQ-2 Depression Total Score: 0 05/05/20 21 9:23 PM EDT documented as of this encounter Care Teams Nascar Driver Relationship Specialty Start Date End Date Karlos Lyons MD [address] [address] [email or web address] PCP - General Internal Medicine 05/08/21 05/09/22 Sergey Tyson MD [address] [place] [address] [email or web address] PCP - General Internal Medicine 05/10/22 Karlos Lyons MD [address] [address] [email or web address] Insurance Assigned Provider 02/23/17 03/02/23 Omar Rocha MD [address] [place] [address] [email or web address] Physical Medicine and Rehabilitation 05/08/21 Sagar Leung MD [address] [place] [address] [email or web address] Obstetrics and Gynecology 05/08/21 Yefri Hilliard MD [address] [place] [address] Endocrinology 05/08/21 Karlos Murry MD [address] [place] [address] [email or web address] Gastroenterology 02/27/22 Apple Talavera MD [address] [place] [address] [email or web address] Primary Oncologist Medical Oncology 02/19/23 Sergey Tyson MD [address] [place] [address] [email or web address] Insurance Assigned Provider 02/29/24 Mena Mcwilliams, RN [address] [place] [address] [email or web address] i[employer] Transportation Dispatch Manager 11/13/23 12/11/23 documented as of this encounter Additional Source Comments The information contained in this document represents components of the legal health record. It is not the complete legal health record.[facility]
--- OUTSIDE RECORDS SUMMARY | 2025-04-02 10:26 | XMS_ITS | Encounter Summary ---
Author Organization [facility] Address [facility] [employer] [facility] [address] [place] [address] Phone Care Team Providers Care Radio Despatcher Name Role Phone Karlos Lyons MD Unavailable Omar Rocha MD Unavailable Sagar Leung MD Unavailable Yefri Hilliard MD Unavailable Karlos Murry MD Unavailable [phone] Sergey Tyson MD Primary Care Provider Apple Talavera MD Unavailable [phone] Sergey Tyson MD Unavailable Mena Mcwilliams RN Unavailable [phone] Encounter Details Date Type Department Care Team (Late st Contact Info) Description 02/27/2023 Procedure Pass [facility] [address] [place] [address] Social History Tobacco Use Types Packs/Day Years [...] high school, GED, job training, learning the Hungarian language, technical skills, or developing parenting skills)? [...] st Contact Info) Description 03/18/2024 Procedure Pass [address] [address] 04/13/2025 9:00 AM EDT Appointment [facility] Internal Medicine 40 [place] [address] Sergey Tyson MD 40 [place] [address] [email or web address] 04/21/2025 3:00 PM EDT Appointment [facility], [address] [address] Apple Talavera MD [address] [place] [address] [email or web address] 04/27/2025 8:30 AM EDT Office Visit [facility] at [address] [address] Apple Talavera MD [address] [place] [address] [email or web address] documented as of this encounter Visit Diagnoses Not on filedocumented in this encounter Additional Health Concerns Assessment Noted Time PHQ-2 Depression Total Score: 0 01/28/20 23 6:26 PM EST documented as of this encounter Care Teams Radio Despatcher Relationship Specialty Start Date End Date Sergey Tyson MD [address] [place] [address] [email or web address] PCP - General Internal Medicine 05/10/22 Karlos Lyons MD [address] [place] [address] [email or web address] Insurance Assigned Provider 02/23/17 03/02/23 Omar Rocha MD [address] [place] [address] [email or web address] Physical Medicine and Rehabilitation 05/08/21 Sagar Leung MD [address] [place] [address], [address] [place] [address] Obstetrics and Gynecology 05/08/21 Yefri Hilliard MD [address] [place] [address] Endocrinology 05/08/21 Karlos Murry MD [address] [place] [address] [email or web address] Gastroenterology 02/27/22 Apple Talavera MD [address] [place] [address] [email or web address] Primary Oncologist Medical Oncology 02/19/23 Sergey Tyson MD [address] [place] [address] [email or web address] Insurance Assigned Provider 02/29/24 Mena Mcwilliams, RN [address] [place] [id number] [email or web address] iCMP Conductor Pullman 11/13/23 12/11/23 documented as of this encounter Additional Source Comments The information contained in this document represents components of the legal health record. It is not the complete legal health record.[facility]
--- OUTSIDE RECORDS SUMMARY | 2025-04-02 10:26 | XMS_ITS | Encounter Summary ---
Author Organization [facility] Address [address] [place] [address] [address] [place] [address] Phone Care Team Providers Care University Archivist Name Role Phone Karlos Lyons MD Primary Care Provider Karlos Lyons MD Unavailable [phone] Omar Rocha MD Unavailable [phone] Sagar Leung MD Unavailable Karlos Lyons MD Primary Care Provider [phone] Yefri Hilliard MD Unavailable [phone] Karlos Murry MD Unavailable [phone] Sergey Tyson MD Primary Care Provider Apple Talavera MD Unavailable [phone] Sergey Tyson MD Unavailable Mena Mcwilliams RN Unavailable [phone] Reason for Referral * MRI/CAT Scan - Closed Specialty Diagnoses / Procedures Referred By Jessica balbuena Referred To Contact Radiology Diagnoses Lumbar radiculopathy 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 Procedures MRI Lumbar Spine Omar Rocha MD [address] [place] [address] Email: [email or web address] Referral ID Status Reason Start Date Expiration Date Visits Re quested Visits Authorized [id number] Closed 10/07/2019 10/06/2020 1 1 Encounter Details Date Type Department Care Team (Latest Contact Info) Description 10/07/2019 Ancillary Orders Virtual Department [address] [place] [address] Omar Rocha MD [address] [place] [address] [email or web address] Lumbar radiculopathy; Displacement of intervertebral disc of [...] st Contact Info) Description 03/18/2024 Procedure Pass [address] [address] 04/13/2025 9:00 AM EDT Appointment [facility] [place] Internal Medicine [address] [place] [address] Sergey Tyson MD 40 [place] [address] 04/21/2025 3:00 PM EDT Appointment [address] [address] Apple Talavera MD [address] [place] [address] 04/27/2025 8:30 AM EDT Office Visit [facility] at [place] [facility] [address] [place] [address] Apple Talavera MD 30 [place] [address] [email or web address] documented as of this encounter Results * [...] renal lesions that appear similar in size [id number]. Posterior paraspinal soft tissues are unremarkable. IMPRESSION: Multilevel degenerative changes as described above, progressed from 2009study. Moderate canal stenosis at L3-L4. Moderate neuroforaminal stenosison the left at L4-L5 associated with mild compression of the left [id number] nerve root. POS - [id number] Omar Rocha [...] documented as of this encounter Care Teams University Archivist Relationship Specialty Start Date End Date Karlos Lyons MD [address] [address] [email or web address] PCP - General Internal Medicine 07/14/14 05/07/21 Karlos Lyons MD [address] [address] [email or web address] PCP - General Internal Medicine 05/08/21 05/09/22 Sergey Tyson MD [address] [place] [address] [email or web address] PCP - General Internal Medicine 05/10/22 Karlos Lyons MD [address] [place] [address] [email or web address] Insurance Assigned Provider 02/23/17 03/02/23 Omar Rocha MD [address] [place] [address] [email or web address] Physical Medicine and Rehabilitation 05/08/21 Sagar Leung MD [address] [place] [address] [email or web address] Obstetrics and Gynecology 05/08/21 Yefri Hilliard MD [address] [place] [address] Endocrinology 05/08/21 Karlos Murry MD [address] [place] [address] [email or web address] Gastroenterology 02/27/22 Apple Talavera MD [address] [place] [address] [email or web address] Primary Oncologist Medical Oncology 02/19/23 Sergey Tyson MD [address] [place] [address] [email or web address] Insurance Assigned Provider 02/29/24 Mena Mcwilliams RN [address] [place] [address] [email or web address] iCMP Patient Scheduling Manager 11/13/23 12/11/23 documented as of this encounter Additional Source Comments The information contained in this document represents components of the legal health record. It is not the complete legal health record.[facility]
--- OUTSIDE RECORDS SUMMARY | 2025-04-02 10:26 | XMS_ITS | Encounter Summary ---
Author Organization [facility] Address [address] [place] [address] 985 [place] [address] Phone Care Team Providers Care Road Grader Name Role Phone Karlos Lyons MD Primary Care Provider Karlos Lyons MD Unavailable [phone] Omar Rocha MD Unavailable [phone] Sagar Leung MD Unavailable Karlos Lyons MD Primary Care Provider [phone] Yefri Hilliard MD Unavailable [phone] Karlos Murry MD Unavailable [phone] Sergey Tyson MD Primary Care Provider Apple Talavera MD Unavailable [phone] Sergey Tyson MD Unavailable Mena Mcwilliams RN Unavailable [phone] Encounter Details Date Type Department Care Team (Late st Contact Info) Description 04/27/2021 Procedure Pass [facility] Admitting Dept - Virtual Department [address] [place], [place] [phone] Social History Tobacco Use Types Packs/Day Years [...] Contact Info) Description 03/18/2024 Procedure Pass [address] [address] 04/13/2025 9:00 AM EDT Appointment [facility] Internal Medicine [address] [place] [address] Sergey Tyson MD [address] [place] [address] 04/21/2025 3:00 PM EDT Appointment [address] [address] pAple Talavera MD [address] [place] [address] 04/27/2025 8:30 AM EDT Office Visit [facility] at [address] [address] Apple Talavera MD [address] [place] [address] documented as of this encounter Visit Diagnoses Not on filedocumented in this encounter Additional Health Concerns Infection Onset Date Last Indicated Resolved Time CoV-Risk 05/07/2022 05/07/2022 05/18/2022 1:24 AM EDT Assessment Noted Time PHQ-2 Depression Total Score: 0 04/28/20 12:48 PM EDT documented as of this encounter Care Teams Road Grader Relationship Specialty Start Date End Date Karlos Lyons MD [address] [address] [email or web address] PCP - General Internal Medicine 07/14/14 05/07/21 Karlos Lyons MD [address] [place] [address] [email or web address] PCP - General Internal Medicine 05/08/21 05/09/22 Sergey Tyson MD [address] [place] [address] [email or web address] PCP - General Internal Medicine 05/10/22 Karlos Lyons MD [address] [place] [address] [email or web address] Insurance Assigned Provider 02/23/17 03/02/23 Omar Rocha MD [address] [place] [address] [email or web address] Physical Medicine and Rehabilitation 05/08/21 Sagar Leung MD [address] [place] [address], [address] [place] [address] [email or web address] Obstetrics and Gynecology 05/08/21 Yefri Hilliard MD [address] [place] [address] Endocrinology 05/08/21 Karlos Murry MD [address] [place] [address] [email or web address] Gastroenterology 02/27/22 Apple Talavera MD [address] [place] [address] [email or web address] Primary Oncologist Medical Oncology 02/19/23 Sergey Tyson MD [address] [place] [address] [email or web address] Insurance Assigned Provider 02/29/24 Mena Mcwilliams, RN [address] [place] [address] [email or web address] iC[employer] Radio Interference Investigator 11/13/23 12/11/23 documented as of this encounter Additional Source Comments The information contained in this document represents components of the legal health record. It is not the complete legal health record.[facility]
--- OUTSIDE RECORDS SUMMARY | 2025-04-02 10:26 | XMS_ITS | Encounter Summary ---
Author Organization [facility] Address [facility] [address] [place] [address] Phone Care Team Providers Care Pesticide Control Inspector Name Role Phone Karlos Lyons MD Unavailable Omar Rocha MD Unavailable Sagar Leung MD Unavailable Karlos Lyons MD Primary Care Provider Yefri Hilliard MD Unavailable Karlos Murry MD Unavailable [phone] Sergey Tyson MD Primary Care Provider [phone] Apple Talavera MD Unavailable [phone] Sergey Tyson MD Unavailable Mena Mcwilliams RN Unavailable [phone] Encounter Details Date Type Department Care Team (Late st Contact Info) Description 10/25/2021 Procedure Pass [address] [address] Social History Tobacco Use Types Packs/Day Years [...] Contact Info) Description 03/18/2024 Procedure Pass [address] [address] 04/13/2025 9:00 AM EDT Appointment [facility] Internal Medicine [address] [place] [address] Sergey Tyson MD 40 [place] [address] 04/21/2025 3:00 PM EDT Appointment [address] [address] Apple Talavera MD [address] [place] [address] 04/27/2025 8:30 AM EDT Office Visit [facility] at [address] [address] Apple Talavera MD [address] [place] [address] documented as of this encounter Visit Diagnoses Not on filedocumented in this encounter Additional Health Concerns Infection Onset Date Last Indicated Resolved Time CoV-Risk 05/07/2022 05/07/2022 05/18/2022 1:24 AM EDT Assessment Noted Time PHQ-2 Depression Total Score: 0 05/05/20 9:23 PM EDT documented as of this encounter Care Teams Pesticide Control Inspector Relationship Specialty Start Date End Date Karlos Lyons MD [address] [address] [email or web address] PCP - General Internal Medicine 05/08/21 05/09/22 Sergey Tyson MD [address] [place] [address] [email or web address] PCP - General Internal Medicine 05/10/22 Karlos Lyons MD [address] [place] [address] [email or web address] Insurance Assigned Provider 02/23/17 03/02/23 Omar Rocha MD [address] [place] [address] [email or web address] Physical Medicine and Rehabilitation 05/08/21 Sagar Leung MD [address] [place] [address] [email or web address] Obstetrics and Gynecology 05/08/21 Yefri Hilliard MD [address] [place] [address] Endocrinology 05/08/21 Karlos Murry MD [address] [place] [address] [email or web address] Gastroenterology 02/27/22 Apple Talavera MD [address] [place] [address] [email or web address] Primary Oncologist Medical Oncology 02/19/23 Sergey Tyson MD [address] [place] [address] [email or web address] Insurance Assigned Provider 02/29/24 Mena Mcwilliams RN [address] [place] [address] [email or web address] iCMP Shuttle Filler 11/13/23 12/11/23 documented as of this encounter Additional Source Comments The information contained in this document represents components of the legal health record. It is not the complete legal health record.[facility]
--- OUTSIDE RECORDS SUMMARY | 2025-04-02 10:26 | XMS_ITS | Encounter Summary ---
Author Organization [facility] Address [facility] [employer] [facility] [address] [place] [address] Phone Care Team Providers Care Wheel And Caster Repairer Name Role Phone Karlos Lyons MD Unavailable [phone] Omar Rocha MD Unavailable Sagar Leung MD Unavailable Karlos Lyons MD Primary Care Provider [phone] Yefri Hilliard MD Unavailable Karlos Murry MD Unavailable [phone] Sergey Tyson MD Primary Care Provider Apple Talavera MD Unavailable Sergey Tyson MD Unavailable Mena Mcwilliams RN Unavailable Encounter Details Date Type Department Care Team (Latest Contact Info) Description 11/13/2021 Transcribe Orders Virtual Department [address] [place], [place] [phone] Omar Rocha MD [address] [place] [address] [email or web address] Right foot pain (Primary Dx) Social History [...] st Contact Info) Description 03/18/2024 Procedure Pass [address] [address] 04/13/2025 9:00 AM EDT Appointment [facility] Internal Medicine [address] [place] [address] Sergey Tyson MD 40 [place] [address] 04/21/2025 3:00 PM EDT Appointment [address] [address] Apple Talavera MD [address] [place] [address] 04/27/2025 8:30 AM EDT Office Visit [facility] at [address] [address] Apple Talavera MD [address] [place] [address] [phone] documented as of this encounter Results * [...] documented as of this encounter Care Teams Wheel And Caster Repairer Relationship Specialty Start Date End Date Karlos Lyons MD [address] [address] [email or web address] PCP - General Internal Medicine 05/08/21 05/09/22 Sergey Tyson MD [address] [place] [address] [email or web address] PCP - General Internal Medicine 05/10/22 Karlos Lyons MD [address] [place] [address] [email or web address] Insurance Assigned Provider 02/23/17 03/02/23 Omar Rocha MD [address] [place] [address] [email or web address] Physical Medicine and Rehabilitation 05/08/21 Sgaar Leung MD [address] [place] [address] [email or web address] Obstetrics and Gynecology 05/08/21 Yefri Hilliard MD [address] [place] [address] Endocrinology 05/08/21 Karlos Murry MD [address] [place] [address] [email or web address] Gastroenterology 02/27/22 Apple Talavera MD [address] [place] [address] [email or web address] Primary Oncologist Medical Oncology 02/19/23 Sergey Tyson MD [address] [place] [address] [email or web address] Insurance Assigned Provider 02/29/24 Mena Mcwilliams, RN [address] [place] [address] [email or web address] [employer] Motorcycle Deliverer 11/13/23 12/11/23 documented as of this encounter Additional Source Comments The information contained in this document represents components of the legal health record. It is not the complete legal health record.[facility]
--- OUTSIDE RECORDS SUMMARY | 2025-04-02 10:26 | XMS_ITS | Encounter Summary ---
Author Organization [facility] Address [facility] [address] [place] [address] Phone Care Team Providers Care Conditioning Yard Supervisor Name Role Phone Karlos Lyons MD Unavailable Omar Rocha MD Unavailable Sagar Leung MD Unavailable Karlos Lyons MD Primary Care Provider Yefri Hilliard MD Unavailable Karlos Murry MD Unavailable [phone] Sergey Tyson MD Primary Care Provider Apple Talavera MD Unavailable [phone] Sergey Tyson MD Unavailable Mena Mcwilliams RN Unavailable [phone] Encounter Details Date Type Department Care Team (Late st Contact Info) Description 05/25/2021 Procedure Pass OR Admitting Dept - Virtual Department [address] [place] [address] Social History Tobacco Use Types Packs/Day Years [...] Contact Info) Description 03/18/2024 Procedure Pass [address] [address] 04/13/2025 9:00 AM EDT Appointment [facility] Internal Medicine [address] [place] [address] Sergey Tyson MD 40 [place] [address] 04/21/2025 3:00 PM EDT Appointment [address] [address] Apple Talavera MD [address] [place] [address] 04/27/2025 8:30 AM EDT Office Visit [facility] at [address] [address] Apple Talavera MD [address] [place] [address] documented as of this encounter Visit Diagnoses Not on filedocumented in this encounter Additional Health Concerns Infection Onset Date Last Indicated Resolved Time CoV-Risk 05/07/2022 05/07/2022 05/18/2022 1:24 AM EDT Assessment Noted Time PHQ-2 Depression Total Score: 0 05/05/20 21 9:23 PM EDT documented as of this encounter Care Teams Conditioning Yard Supervisor Relationship Specialty Start Date End Date Karlos Lyons MD [address] [address] [email or web address] PCP - General Internal Medicine 05/08/21 05/09/22 Sergey Tyson MD [address] [place] [address] [email or web address] PCP - General Internal Medicine 05/10/22 Karlos Lyons MD [address] [address] [email or web address] Insurance Assigned Provider 02/23/17 03/02/23 Omar Rocha MD [address] [place] [address] [email or web address] and [email or web address] 05/08/21 Sagar Leung MD [address] [place] [address] [email or web address] Obstetrics and Gynecology 05/08/21 Yefri Hilliard MD [address] [place] [address] Endocrinology 05/08/21 Karlos Murry MD [address] [place] [address] [email or web address] Gastroenterology 02/27/22 Apple Talavera MD [address] [place] [address] [email or web address] Primary Oncologist Medical Oncology 02/19/23 Sergey Tyson MD [address] [place] [address] [email or web address] Insurance Assigned Provider 02/29/24 Mena Mcwilliams, RN [address] [place] [address] [email or web address] [employer] Software Engineer Advisor 11/13/23 12/11/23 documented as of this encounter Additional Source Comments The information contained in this document represents components of the legal health record. It is not the complete legal health record.[facility]
--- OUTSIDE RECORDS SUMMARY | 2025-04-02 10:26 | XMS_ITS | Encounter Summary ---
Author Organization [facility] Address [facility] [facility] [address] [place] [address] Phone Care Team Providers Care Floor Sanding Machine Operator Name Role Phone Karlos Lyons MD Unavailable Omar Rocha MD Unavailable [phone] Sagar Leung MD Unavailable Karlos Lyons MD Primary Care Provider [phone] Yefri Hilliard MD Unavailable [phone] Karlos Murry MD Unavailable [phone] Sergey Tyson MD Primary Care Provider Apple Talavera MD Unavailable [phone] Sergey Tyson MD Unavailable Mena Mcwilliams RN Unavailable Encounter Details Date Type Department Care Team (Latest Contact Info) Description 05/08/2021 Transcribe Orders Virtual Department 30 [place], [place] [phone] Omar Rocha MD [address] [place] [address] [email or web address] Left wrist pain (Primary Dx) Social History [...] Contact Info) Description 03/18/2024 Procedure Pass [address] [address] 04/13/2025 9:00 AM EDT Appointment [facility] Internal Medicine 40 [place] [address] Sergey Tyson MD 40 [place] [address] 04/21/2025 3:00 PM EDT Appointment [address] [address] Apple Talavera MD [address] [place] [address] 04/27/2025 8:30 AM EDT Office Visit [facility] at [address] [address] Apple Talavera MD [address] [place] [address] [phone] documented as of this encounter Results * [...] documented as of this encounter Care Teams Floor Sanding Machine Operator Relationship Specialty Start Date End Date Karlos Lyons MD [address] [address] [email or web address] PCP - General Internal Medicine 05/08/21 05/09/22 Sergey Tyson MD [address] [place] [address] [email or web address] PCP - General Internal Medicine 05/10/22 Karlos Lyons MD [address] [place] [address] [email or web address] Insurance Assigned Provider 02/23/17 03/02/23 Omar Rocha MD [address] [place] [address] [email or web address] Physical Medicine [email or web address] Rehabilitation 05/08/21 Sagar Leung MD [address] [place] [address] [email or web address] Obstetrics and Gynecology 05/08/21 Yefri Hilliard MD [address] [place] [address] Endocrinology 05/08/21 Karlos Murry MD [address] [place] [address] [email or web address] Gastroenterology 02/27/22 Apple Talavera MD [address] [place] [address] [email or web address] Primary Oncologist Medical Oncology 02/19/23 Sergey Tyson MD [address] [place] [address] [email or web address] Insurance Assigned Provider 02/29/24 Mena Mcwilliams RN [address] [place] [address] [email or web address] [employer] Revenue Cycle Specialist 11/13/23 12/11/23 documented as of this encounter Additional Source Comments The information contained in this document represents components of the legal health record. It is not the complete legal health record.[facility]
--- OUTSIDE RECORDS SUMMARY | 2025-04-02 10:26 | XMS_ITS | Encounter Summary ---
Author Organization [facility] Address [address] [place] [address] Phone Care Team Providers Care Statistical Modeler Name Role Phone Karlos Lyons MD Primary Care Provider Karlos Lyons MD Unavailable [phone] Omar Rocha MD Unavailable [phone] Sagar Leung MD Unavailable Karlos Lyons MD Primary Care Provider [phone] Yefri Hilliard MD Unavailable [phone] Karlos Murry MD Unavailable [phone] Sergey Tyson MD Primary Care Provider Apple Talavera MD Unavailable [phone] Sergey Tyson MD Unavailable Mena Mcwilliams RN Unavailable [phone] Encounter Details Date Type Department Care Team (Late st Contact Info) Description 10/07/2019 Procedure Pass [facility], [facility] - [address] [place] [address] Social History Tobacco Use Types Packs/Day Years [...] st Contact Info) Description 03/18/2024 Procedure Pass [address] [address] 04/13/2025 9:00 AM EDT Appointment [facility] Internal Medicine [address] [place] [address] Sergey Tyson MD [address] [place] [address] [email or web address] 04/21/2025 3:00 PM EDT Appointment [address] [address] Apple Talavera MD [address] [place] [address] 04/27/2025 8:30 AM EDT Office Visit [facility] at [address] [address] Apple Talavera MD [address] [place] [address] [email or web address] documented as of this encounter Visit Diagnoses Not on filedocumented in this encounter Additional Health Concerns Infection Onset Date Last Indicated Resolved Time CoV-Risk 05/07/2022 05/07/2022 05/18/2022 1:24 AM EDT Assessment Noted Time PHQ-2 Depression Total Score: 0 10/20/20 18 10:00 AM EST documented as of this encounter Care Teams Statistical Modeler Relationship Specialty Start Date End Date Kalros Lyons MD [address] [place] [address] [email or web address] PCP - General Internal Medicine 07/14/14 05/07/21 Karlos Lyons MD [address] [place] [address] [email or web address] PCP - General Internal Medicine 05/08/21 05/09/22 Sergey Tyson MD [address] [place] [address] [email or web address] PCP - General Internal Medicine 05/10/22 Karlos Lyons MD [address] [place] [address] [email or web address] Insurance Assigned Provider 02/23/17 03/02/23 Omar Rocha MD [address] [place] [address] [email or web address] Physical Medicine and Rehabilitation 05/08/21 Sagar Leung MD [address] [place] [address], [address] [place] [address] [email or web address] Obstetrics and Gynecology 05/08/21 Yefri Hilliard MD [address] [place] [address] Endocrinology 05/08/21 Karlos Murry MD [address] [place] [address] [email or web address] Gastroenterology 02/27/22 Apple Talavera MD [address] [place] [address] [email or web address] Primary Oncologist Medical Oncology 02/19/23 Sergey Tyson MD [address] [place] [address] [email or web address] Insurance Assigned Provider 02/29/24 Mena Mcwilliams, RN [address] [place] [address] [email or web address] [employer] Exotic Dancer 11/13/23 12/11/23 documented as of this encounter Additional Source Comments The information contained in this document represents components of the legal health record. It is not the complete legal health record.[facility]
--- OUTSIDE RECORDS SUMMARY | 2025-04-02 10:26 | XMS_ITS | Clinical Summary ---
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 Rocha at [facility] Take 10 mg by mouth 4 (four) times a day. And take 2 tablets at bedtime. Indications: managed by Dr. Rocha at [facility] 09/29/2023 Active magnesium oxide (URO-MAG) 84.5 mg [...] times a day. 140 mL 03/23/2025 Active albuterol 90 mcg/actuation inhalerIndications:P neumonia of right lower lobe due to infectious organism Inhale 2 puffs into the lungs every 6 (six) hours as needed for wheezing. 18 g 03/26/2025 Active azithromycin (ZITHROMAX) 250 MG tablet 03/30/2025 Active azithromycin (ZITHROMAX) 500 MG tabletIndications:Pn eumonia of left lower lobe due to infectious organism Take 1 tablet (500 mg total) by mouth daily. 5 tablet 11/12/2024 5 Discontinued (No longer taking) clarithromycin (BIAXIN) 500 MG tabletIndications:Pn eumonia of right lower lobe due to infectious organism Take 1 tablet (500 mg total) by mouth 2 (two) times a day for 7 days. 14 tablet 03/23/2025 Active Problems Patient Care Coordination No te Formatting of this note migh t be different from the original. HEIGHT 166.4cm no shoes 02/27/23 Problem Noted Date Diagnosed Date Generalized abdominal pain 04/01/2025 Assessment & Plan (04/01/2025 11:19 AM EDT): She notes longstanding history of abdominal issues including left lower quadrant abdominal pain and right upper quadrant abdominal pain with occasional acid like sensations . She did have a CT abdomen pelvis which noted prominent common bile duct and questioning stricture of the center of Oddi. She has a follow-up with Ronny DUMONT on Saturday. She is advised to maintain adequate hydration and to avoid foods high in fat to prevent exacerbation of pain. Discussed the possibility of an MRCP with GI. Pneumonia of both lower lobes due to infectious organism 03/26/2025 Assessment & Plan (04/01/2025 11:19 AM EDT): Right lower lobe pneumonia transition to bilateral multifocal pneumonia, originally on clarithromycin and ultimately transition to Z-Golden. Symptoms have greatly improved and only notes dyspnea on exertion. Oxygen saturation has improved as well, originally 90% and now 95%. Lungs were clear to auscultation bilaterally today. It was explained that recovery from pneumonia can be gradual, especially considering her age. Advised to complete the full course of antibiotics and monitor for any reoccurrence of fever. A gradual increase in physical activity was recommended. A work note was provided, excusing her from work until 04/08/2025 after which she may return with reduced hours, not exceeding 4 hours/day until 04/29/2025. If her condition worsens, she was advised to inform us immediately. Overall, I note a huge improvement of her symptoms and lung function. Assessment & Plan (03/26/2025 12:09 PM EDT): [...] such lets set the patient up with [facility] orthopedics to reassess if that is indeed [...] Will do the bone density scan at [facility]. In regards to night sweats and some [...] its possible that would overtake this from [facility] but will cross that [...] and ADR Opted to recheck urine at [facility] lab due to [facility]'s protocol on sending out urine for culture [...] several adenomatous polyps. Vitamin D deficiency 12/01/2019 skilled nursing current use of opiate analgesic 2018 Fasciculations [...] recent thyroid function studies were done at [facility] and this can be found in the [...] (05/08/2021): bilateral, Seen by Dr Sims at [facility] Assessment & Plan (09/28/2024 10:42 AM EST): [...] Encounters Date Type Department Care Team Description 04/01/2025 10:20 AM EDT Office Visit [facility] Internal Medicine [address] [place] [address] Dia Álvarez PA-C Pneumonia of both lower lobes due to infectious organism (Primary Dx); Generalized abdominal pain 03/30/2025 Orders Only [facility] [address] [place] [address] Provider, MD Avelino 03/26/2025 11:20 AM EDT Office Visit [facility] [address] [place] [address] Dia Álvarez PA-C Pneumonia of right lower lobe due to infectious organism (Primary Dx) 03/23/2025 2:27 PM EDT - 03/23/2025 11:59 PM EDT Hospital Encounter [facility], X-Ray - [address] [place] [address] Dia Álvarez PA-C Discharge Disposition: Home or Self Care 03/23/2025 1:00 PM EDT Office Visit [facility] [address] [place] [address] Dia Álvarez PA-C Acute upper respiratory infection (Primary Dx); Thrush; Pneumonia of right middle lobe due to infectious organism; Pneumonia of right lower lobe due to infectious organism 03/23/2025 Telephone [facility] [address] [place] [address] Sabrina Talavera PA-C Results (After hours call); pneumonia 03/23/2025 Telephone [facility] Medicine [address] [place] [address] Sergey Tyson MD Results 03/23/2025 Telephone [facility] [address] [place] [address] Sergey Tyson MD Cough 03/18/2025 Telephone [facility] Internal [facility] [address] [place] [address] Sergey Tyson MD Speech Referral 03/18/2025 [facility] Internal [facility] [address] [place] [address] Sergey Tyson MD Referral (Gastroenterology) 02/11/2025 Refill [facility] Internal [facility] [address] [place] [address] Sergey Tyson MD Medication Refill 01/20/2025 Refill [facility] [address] [place] [address] Sergey Tyson MD Medication Refill from Last 3 Months Immunizations Name Administration Dates Next Due COVID-19 (Pre-09/16) Pfizer Vaccine, mRNA, PF 02/21/2021,01/31/2021 COVID-19, Unspecified Formulation 11/07/2022 [id number] FORMULATION 10/07/2009 Influenza Quadrivalent MDCK Preservative Free [...] 1.5 7 1 1970 Smokeless Tobacco: Never Tobacco Cessation:Counseling Given: [...] Sign Reading Time Taken Comments Blood Pressure 140/80 04/01/2025 10:16 AM EDT Pulse 95 04/01/2025 10:16 AM EDT Temperature 36.5 ??C (97.7 ??F) 04/01/2025 10:16 AM E DT Respiratory Rate 13 04/01/2025 10:16 AM EDT Oxygen Saturation 95% 04/01/2025 10:16 AM EDT Inhaled Oxygen Concentration - - Weight 53.1 kg (117 lb) 04/01/2025 10:16 AM EDT Height 165 cm (5' 4.96 ) 04/01/2025 10:16 AM EDT Body Mass Index 19.49 04/01/2025 10:16 AM EDT Plan of Treatment Upcoming Encounters Date Type Department Care Team (Late st Contact Info) Description 03/18/2024 Procedure Pass [address] [address] 04/13/2025 9:00 AM EDT Appointment [facility] [address] [place] [address] Sergey Tyson MD [address] [place] [address] 04/21/2025 3:00 PM EDT Appointment [address] [address] Apple Talavera MD [address] [place] [address] 04/27/2025 8:30 AM EDT Office Visit [facility] at [address] [address] Apple Talavera MD [address] [place] [email or web address] Health Maintenance Due Date Last Done Comments COLOGUARD 1995 FOBT 1995 SIGMOIDOSCOPY 1995 VIRTUAL COLONOSCOPY 1995 RSV VACCINE (1 - Risk 60-74 years 1-dose series) 2010 ZOSTER VACCINES (1 of 2) 10/13/2012 08/18/2012 Adult Td,Tdap Booster 06/15/2023 06/15/2013 COVID-19 VACCINE ( season) 2024 08/24/2023, 11/07/2022, 11/07/2022, Additional history exists FIT TEST 03/04/2025 03/04/2024 DEPRESSION SCREENING 09/11/2025 09/11/2024, 09/11/20 24 TSH LEVEL 09/28/2025 09/28/2024, 0505/2024, 12/20/2023, Additional history exists BLOOD PRESSURE 10/02/2025 04/01/2025 CREATININE LEVEL 10/30/2025 10/30/2024, 02/2024, 04/10/2024, Additional history exists POTASSIUM LEVEL 10/30/2025 10/30/2024, 110 02/2024, 04/10/2024, Additional history exists MAMMOGRAM 03/12/2026 03/12/2024 LIPID PANEL 05/11/2026 05/11/2021, 05/11/2021 COLONOSCOPY 09/13/2032 09/13/2022, 04/20/2021 COLORECTAL CANCER SCREENING 09/13/2032 PNEUMOCOCCAL VACCINES (50+ years) Completed 03/18/2017, 01/26/2016 HEPATITIS C SCREENING Completed 05/11/2021, 021 OSTEOPOROSIS SCREENING INITIAL (ONE-TIME) Completed 05/02/2024, 01/29/2020, 02/08/2016 SMOKING STATUS SCREENING (Once After 26 Yrs) Completed 04/01/2025 HEPATITIS A VACCINES Aged Out No long er eligible based on patient's age to complete this topic HIB VACCINES Aged Out No longer eligi ble based on patient's age to complete this topic MENINGOCOCCAL VACCINES (ACWY) Aged Out No longer eligible based on patient's age to complete this topic Medical Devices Implanted Type Area Sec Accountant Device Identifier Shelf Expiration Date Model / [...] EDT Routine general medical examination at a [facility] care facility from Last 3 Months or Most Recently Relevant to Health Maintenance Results * Outside US Abdomen Report Only (03/30/2025 12:37 PM EDT) Historical Provider MD BONDS US ABDOMEN * Outside XR??Chest Report Only (03/30/2025 11:37 AM EDT) Historical Provider MD BONDS XR CHEST * XR CHEST PA AND LATERAL 2 VIEWS (03/23/2025 2:51 PM EDT) 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 Follow-up to resolution advised. [facility] Anatomical Region Laterality Modality Chest Computed Radiogr [...] initiated on 03/23/2025 3:11 PM, Message ID [id number]. Narrative 03/23/2025 3:11 PM EDT XR CHEST PA AND LATERAL 2 VIEWS Referring clinician's provided indication for this examination in [facility]: Cough COMPARISON: None available FINDINGS: Devices/Tubes/Lines: Lower [...] was initiated on 03/23/2025 3:11 PM,Message ID [id number]. Dia Álvarez PA-C IMG XR CHEST * POCT COVID-19 RT-PCR/Influenza A & B/RSV (Cepheid) (03/23/2025 1:10 PM EDT) RSV PCR Negative Negative [facility] SARS-CoV-2 (COVID-19) Negative Negative [facility] Influenza A PCR Negative Negative [facility] Influenza B PCR Negative Negative [facility] 03/23/2025 1:10 PM EDT 03/23/2025 1:51 PM EDT Dia Álvarez PA-C POINT OF CARE TEST O RDERABLES [facility] [address] [place] [address], [facility] [phone] * (ABNORMAL) Comprehensive metabolic panel (10/30/2024 9:57 AM EST) SODIUM 140 133 - 146 mmol/L [facility] POTASSIUM 4.3 3.3 - 5.1 mmol/L [facility] CHLORIDE 104 96 - 108 mmol/L [facility] CO2 27 21 - 35 mmol/L [facility] BUN 23(H) 6 - 19 mg/dL [facility] CREATININE 0.90 0.5 - 1.5 mg/dL [facility] GLUCOSE 92 70 - 99 mg/dL [facility] ALBUMIN 4.3 3.9 - 4.8 g/dL [facility] TOTAL PROTEIN 6.9 6.5 - 8.0 g/dL [facility] CALCIUM 9.3 8.4 - 10.3 mg/dL [facility] ALKALINE PHOSPHATASE 91 39 - 117 U/L [facility] TOTAL BILIRUBIN 0.3 0.0 - 1.2 mg/dL [facility] AST 20 0 - 37 U/L [facility] ALT 9 0 - 40 U/L [facility] GLOBULIN 2.6 1 - 4.8 g/dL [facility] EGFR 67 >59 mL/min/1.7 3m2 [facility] Comment:Estimated glomerular filtration rate calculated using the CKD-EPI refit equation. ANION GAP 13 10 - 20 mmol/L [facility] Blood 10/30/2024 9:57 AM EST 10/30/2024 10:02 AM EST Rachael Alberts STORE CUSTODIAN LAB BLOOD ORDE AZUL [facility] [address] [place] [address] * TSH with reflex (09/28/2024 10:59 AM EST) TSH 0.91 0.27 - 4.20 uIU/mL [facility] Blood 09/28/2024 10:5 9 AM EST 09/28/2024 11:00 AM EST Sergey Tyson MD LAB BLOOD ORDERABLES Performing Organization Address [facility] Co de Phone Number [address] [address] * DXA Monitoring (05/02/2024 10:14 AM EDT) Anatomical Region Laterality Modality Bone Density Bone Density Sergey Tyson MD IMG BD BONE DENSITY DEXA * Fecal immunochemical test x1 (FIT) (03/04/2024 9:15 PM EDT) Pathologist [facility] Immuno Fecal Occult Negative Negative [facility] Stool (Stool) 03/04/2024 9:1 5 PM EDT 03/06/2024 10:00 AM EDT Adan Hoffman MD BODY FLUIDS AND ST OOLS ORDERABLES Performing Organization Address [facility] de Phone Number [address] [address] * ENDOSCOPY, COLON (09/13/2022 11:58 AM EDT) Narrative Transcriptions Adan Hoffamn MD - 09/13/2022 11:58 AM EDT Patient Name: Kaylyn Alegria MD:: ADAN HOFFMAN MD Procedure Date: 09/13/2022 11:58AM Date of : 1950 Age: 72 Admit Type: Outpatient Gender: Female Room: [facility] 04 Referring MD: Sergey Tyson MD Exam Type: [...] 11:58 AM Procedure Code(s): --- Professional --- 98490, Colonoscopy, flexible; with removal of tumor(s), polyp(s), or other lesion(s) by snare technique 04226, 59, Colonoscopy, flexible; with biopsy, single or multiple --- Technical --- 57840, Colonoscopy, flexible; with removal of tumor(s), polyp(s), or other lesion(s) by snare technique 46889, 59, Colonoscopy, flexible; with biopsy, single or multiple Diagnosis Code(s): --- Professional --- K63.5, Polyp of colon Z86.010, Personal history of colonic polyps K64.9, Unspecified hemorrhoids Q43.8, Other specified congenital malformations of intestine --- Technical --- K63.5, Polyp of colon Z86.010, Personal history of colonic polyps K64.9, Unspecified hemorrhoids Q43.8, Other specified congenital malformations of intestine CPT copyright 2020 [employer]. All rights reserved. The codes documented in this report are preliminary and upon auto claims adjuster reviewmay be revised to meet current compliance requirements. Procedure Date: 09/13/2022 11:58:[address] [place] [address] Sergey Tyson MD GI PROCEDURE ORDERAB LES * Hepatitis C antibody, qualitative (05/11/2021 9:13 AM EDT) HCV NON-REACTIV E NON-REACTI VE [facility] Blood 05/11/2021 9:13 AM EDT 05/11/2021 9:19 AM EDT Adan Lyons MD LAB BLOOD ORDERABL ES [address] [address] * (ABNORMAL) Lipid panel (05/11/2021 9:13 AM EDT) HDL 68 mg/dL [facility] Comment: ? Interpretation <40 mg/dL: Low HDL cholesterol (major risk factor for CHD) Greater than or equal to 60 mg/dL: High HDL cholesterol ( negative risk factor for CHD) HDL - cholesterol is affected by a number of factors, e.g. smoking, excerise, hormones, sex and age. CHOLESTEROL 217 0 - 240 mg/dL [facility] TRIGLYCERIDES 113 30 - 160 mg/dL [facility] LDL 126 50 - 129 mg/dL [facility] Comment: LDL levels in terms of risk for coronary heart disease: <100 mg/dL: Optimal 100-129 mg/dL: Near or above optimal 130-159 mg/dL: Borderline high 160-189 mg/dL: High >190 mg/dL: Very High CARDIAC RISK RATIO 3.2(L) 3.3 - 4.4 C [facility] Blood 05/11/2021 9:13 AM EDT 05/11/2021 9:19 AM EDT Adan Lyons MD LAB BLOOD ORDERABL ES [address] [address] from Last 3 Months or Most Recently Relevant to Health Maintenance Care Teams Communications Attendant Relationship Specialty Start Date End Date Sergey Tyson MD [address] [place], [place] [email or web address] PCP - General Internal Medicine 05/10/22 Omar Rocha MD [email or web address] Physical Medicine and Rehabilitation 05/08/21 Saagr Leung MD [address] [place] [address] [email or web address] Obstetrics and Gynecology 05/08/21 Yefri Hilliard MD [address] [place] [address] Endocrinology 05/08/21 Adan Hoffman MD [address] [place] [address] Gastroenterology 02/27/22 Apple Talavera MD [address] [place] [address] [email or web address] Primary Oncologist Medical Oncology 02/19/23 Sergey Tyson MD [address] [place] [address] [email or web address] Insurance Assigned Provider 02/29/24 Additional Source Comments The information contained in this document represents components of the legal health record. It is not the complete legal health record.[facility]
--- OUTSIDE RECORDS SUMMARY | 2025-04-02 10:26 | XMS_ITS | Encounter Summary ---
Author Organization [facility] Address [facility] [address] [place] [address] Phone Care Team Providers Care Lab Instructor Name Role Phone Omar Rocha MD Unavailable Sagar Leung MD Unavailable Yefri Hilliard MD Unavailable [phone] Karlos Murry MD Unavailable Sergey Tyson MD Primary Care Provider Apple Talavera MD Unavailable Sergey Tyson MD Unavailable Encounter Details Date Type Department Care Team (Latest Contact Info) Description 12/23/2024 Transcribe Orders Virtual Department [address] [place] [address] Omar Rocha MD [address] [place] [address] [email or web address] Left hip pain (Primary Dx) Social History [...] high school, GED, job training, learning the Portuguese language, technical skills, or developing parenting skills)? [...] Contact Info) Description 03/18/2024 Procedure Pass [address] [address] 04/13/2025 9:00 AM EDT Appointment [facility] [address] [place] [address] Sergey Tyson MD [address] [place] [address] 04/21/2025 3:00 PM EDT Appointment [address] [address] Apple Talavera MD [address] [place] [email or web address] 04/27/2025 8:30 AM EDT Office Visit [facility] at [address] [address] Apple Talavera MD [address] [place] [address] documented as of this encounter Results * [...] documented as of this encounter Care Teams Lab Instructor Relationship Specialty Start Date End Date Sergey Tyson MD [address] [place] [address] PCP - General Internal Medicine 05/10/22 Omar Rocha MD [email or web address] Physical Medicine and Rehabilitation 05/08/21 Sagar Leung MD [address] [facility] [address] [place] [address] Obstetrics and Gynecology 05/08/21 Yefri Hilliard MD [address] [place] [address] Endocrinology 05/08/21 Karlos Murry MD [address] [place] [address] [email or web address] Gastroenterology 02/27/22 Apple Talavera MD [address] [place] [address] Primary Oncologist Medical Oncology 02/19/23 Sergey Tyson MD [address] [place] [address] [email or web address] Insurance Assigned Provider 02/29/24 documented as of this encounter Additional Source Comments The information contained in this document represents components of the legal health record. It is not the complete legal health record.[facility]
--- OUTSIDE RECORDS SUMMARY | 2025-04-02 10:26 | XMS_ITS | Encounter Summary ---
Author Organization [facility] Address [address] [place] [address] [address] [place] [address] Phone Care Team Providers Care Engineering Technologist Name Role Phone Karlos Lyons MD Primary Care Provider Karlos Lyons MD Unavailable [phone] Omar Rocha MD Unavailable [phone] Sagar Leung MD Unavailable Karlos Lyons MD Primary Care Provider [phone] Yefri Hilliard MD Unavailable [phone] Karlos Murry MD Unavailable [phone] Sergey Tyson MD Primary Care Provider [phone] Apple Talavera MD Unavailable [phone] Sergey Tyson MD Unavailable Mena Mcwilliams RN Unavailable [phone] Encounter Details Date Type Department Care Team (Latest Contact Info) Description 01/27/2018 Prep for Procedure [facility] [address] [place] [phone] Apple Talavera MD [address] [place] [address] Malignant neoplasm of overlapping sites of left [...] Contact Info) Description 03/18/2024 Procedure Pass [address] [address] 04/13/2025 9:00 AM EDT Appointment [facility] Internal Medicine [address] [place] [address] Sergey Tyson MD [address] [place] [address] [email or web address] 04/21/2025 3:00 PM EDT Appointment [address] [address] Apple Talavera MD [address] [place] [address] 04/27/2025 8:30 AM EDT Office Visit [facility] at [address] [address] Apple Talavera MD [address] [place] [address] documented as of this encounter Visit Diagnoses Diagnosis Malignant neoplasm of overlapping sites of left breast in female, estrogen receptor positive documented in this encounter Additional Health Concerns Infection Onset Date Last Indicated Resolved Time CoV-Risk 05/07/2022 05/07/2022 05/18/2022 1:24 AM EDT documented as of this encounter Care Teams Engineering Technologist Relationship Specialty Start Date End Date Karlos Lyons MD [address] [address] [email or web address] PCP - General Internal Medicine 07/14/14 05/07/21 Karlos Lyons MD [address] [place] [address] [email or web address] PCP - General Internal Medicine 05/08/21 05/09/22 Sergey Tyson MD [address] [place] [address] [email or web address] PCP - General Internal Medicine 05/10/22 Karlos Lyons MD [address] [place] [address] [email or web address] Insurance Assigned Provider 02/23/17 03/02/23 Omar Rocha MD [address] [place] [address] [email or web address] Medicine [email or web address] 05/08/21 Sagar Leung MD [address] [facility], [address] [place] [address] [email or web address] Obstetrics and Gynecology 05/08/21 Yefri Hilliard MD [address] [place] [address] Endocrinology 05/08/21 Karlos Murry MD [address] [place] [address] [email or web address] Gastroenterology 02/27/22 Apple Talavera MD [address] [place] [address] [email or web address] Primary Oncologist Medical Oncology 02/19/23 Sergey Tyson MD [address] [place] [address] [email or web address] Insurance Assigned Provider 02/29/24 Mena Mcwilliams, RUSS [address] [place] [address] [email or web address] Manufacturing Worker 11/13/23 12/11/23 documented as of this encounter Additional Source Comments The information contained in this document represents components of the legal health record. It is not the complete legal health record.[facility]
--- OUTSIDE RECORDS SUMMARY | 2025-04-02 10:26 | XMS_ITS | Encounter Summary ---
Author Organization [facility] Address [facility] [employer] [facility] [address] [place] [address] Phone Care Team Providers Care Wildlife Biology Internship Name Role Phone Karlos Lyons MD Unavailable [phone] Omar Rocha MD Unavailable Sagar Leung MD Unavailable Karlos Lyons MD Primary Care Provider Yefri Hilliard MD Unavailable [phone] Karlos Murry MD Unavailable [phone] Sergey Tyson MD Primary Care Provider Apple Talavera MD Unavailable [phone] Sergey Tyson MD Unavailable Mena Mcwilliams RN Unavailable [phone] Encounter Details Date Type Department Care Team (Late st Contact Info) Description 02/22/2022 Procedure Pass [facility], [address] [address] Social History Tobacco Use Types Packs/Day Years [...] st Contact Info) Description 03/18/2024 Procedure Pass [address] [address] 04/13/2025 9:00 AM EDT Appointment [facility] Medical [facility] Internal Medicine [address] [place] [address] Sergey Tyson MD 40 [place] [address] 04/21/2025 3:00 PM EDT Appointment [address] [address] Apple Talavera MD [address] [place] [address] [email or web address] 04/27/2025 8:30 AM EDT Office Visit [facility] at [address] [address] Apple Talavera MD [address] [place] [address] [email or web address] documented as of this encounter Visit Diagnoses Not on filedocumented in this encounter Additional Health Concerns Infection Onset Date Last Indicated Resolved Time CoV-Risk 05/07/2022 05/07/2022 05/18/2022 1:24 AM EDT Assessment Noted Time PHQ-2 Depression Total Score: 0 05/05/20 9:23 PM EDT documented as of this encounter Care Teams Wildlife Biology Internship Relationship Specialty Start Date End Date Karlos Lyons MD [address] [address] [email or web address] PCP - General Internal Medicine 05/08/21 05/09/22 Sergey Tyson MD [address] [place] [address] [email or web address] PCP - General Internal Medicine 05/10/22 Karlos Lyons MD [address] [place] [address] [email or web address] Insurance Assigned Provider 02/23/17 03/02/23 Omar Rocha MD [address] [place] [address] [email or web address] Medicine [email or web address] 05/08/21 Sagar Leung MD [address] [place] [address] [email or web address] Obstetrics and Gynecology 05/08/21 Yefri Hilliard MD [address] [place] [address] Endocrinology 05/08/21 Karlos Murry MD [address] [place] [address] [email or web address] Gastroenterology 02/27/22 Apple Talavera MD [address] [place] [address] [email or web address] Primary Oncologist Medical Oncology 02/19/23 Sergey Tyson MD [address] [place] [address] [email or web address] Insurance Assigned Provider 02/29/24 Mena Mcwilliams RN [address] [place] [address] [email or web address] iCMP Wheat Cleaner 11/13/23 12/11/23 documented as of this encounter Additional Source Comments The information contained in this document represents components of the legal health record. It is not the complete legal health record.[facility]
--- OUTSIDE RECORDS SUMMARY | 2025-04-02 10:26 | XMS_ITS | Encounter Summary ---
Author Organization [facility] Address [address] [place] [address] [address] [place] [address] Phone Care Team Providers Care Nozzle Worker Name Role Phone Karlos Lyons MD Primary Care Provider Karlos Lyons MD Unavailable [phone] Omar Rocha MD Unavailable [phone] Sagar Leung MD Unavailable Karlos Lyons MD Primary Care Provider + [phone] Yefri Hilliard MD Unavailable [phone] Karlos Murry MD Unavailable [phone] Sergey Tyson MD Primary Care Provider Apple Talavera MD Unavailable [phone] Sergey Tyson MD Unavailable Mena Mcwilliams RN Unavailable [phone] Encounter Details Date Type Department Care Team (Late st Contact Info) Description 04/20/2021 Procedure Pass [facility] Admitting Dept Virtual Department [address] [place] [address] Social History Tobacco Use Types [...] st Contact Info) Description 03/18/2024 Procedure Pass [address] [address] 04/13/2025 9:00 AM EDT Appointment [facility] Medical [facility] Internal Medicine [address] [place] [address] Sergey Tyson MD [address] [place] [address] 04/21/2025 3:00 PM EDT Appointment [address] [address] Apple Talavera MD [address] [place] [address] 04/27/2025 8:30 AM EDT Office Visit [facility] at [address] [address] Apple Talavera MD [address] [place] [address] documented as of this encounter Visit Diagnoses Not on filedocumented in this encounter Additional Health Concerns Infection Onset Date Last Indicated Resolved Time CoV-Risk 05/07/2022 05/07/2022 05/18/2022 1:24 AM EDT Assessment Noted Time PHQ-2 Depression Total Score: 0 04/28/20 12:48 PM EDT documented as of this encounter Care Teams Nozzle Worker Relationship Specialty Start Date End Date Karlos Lyons MD [address] [address] [email or web address] PCP - General Internal Medicine 07/14/14 05/07/21 Karlos Lyons MD [address] [place] [address] [email or web address] PCP - General Internal Medicine 05/08/21 05/09/22 Sergey Tyson MD [address] [place] [address] [email or web address] PCP - General Internal Medicine 05/10/22 Karlos Lyosn MD [address] [place] [address] [email or web address] Insurance Assigned Provider 02/23/17 03/02/23 Omar Rocha MD [address] [place] [address] [email or web address] 05/08/21 Sagar Leung MD [address] [place] [address], [address] [place] [address] [email or web address] Obstetrics and Gynecology 05/08/21 Yefri Hilliard MD [address] [place] [address] Endocrinology 05/08/21 Karlos Murry MD [address] [place] [address] [email or web address] Gastroenterology 02/27/22 Apple Talavera MD [address] [place] [address] [email or web address] Primary Oncologist Medical Oncology 02/19/23 Sergey Tyson MD [address] [place] [address] [email or web address] Insurance Assigned Provider 02/29/24 Mena Mcwilliams, RN [address] [place] [address] [email or web address] [employer] Tooth Cutter 11/13/23 12/11/23 documented as of this encounter Additional Source Comments The information contained in this document represents components of the legal health record. It is not the complete legal health record.[facility]
--- OUTSIDE RECORDS SUMMARY | 2025-04-02 10:26 | XMS_ITS | Encounter Summary ---
Author Organization [facility] Address [address] [place], [place] [address] [place] [address] Phone Care Team Providers Care Reimbursement Specialist Name Role Phone Karlos Lyons MD Primary Care Provider Karlos Lyons MD Unavailable [phone] Omar Rocha MD Unavailable [phone] Sagar Leung MD Unavailable Karlos Lyons MD Primary Care Provider + [phone] Yefri Hilliard MD Unavailable [phone] Karlos Murry MD Unavailable [phone] Sergey Tyson MD Primary Care Provider [phone] Apple Talavera MD Unavailable [phone] Sergey Tyson MD Unavailable Mena Mcwilliams RN Unavailable [phone] Encounter Details Date Type Department Care Team (Late st Contact Info) Description 09/04/2019 Ancillary Orders [facility] Internal Medicine [address] [place] [address] Karlos Lyons MD [address] [place] [address] [email or web address] Breast screening Social History Tobacco Use Types [...] st Contact Info) Description 03/18/2024 Procedure Pass [address] [address] 04/13/2025 9:00 AM EDT Appointment [facility] Internal Medicine [address] [place] [address] Sergey Tyson MD [address] [place] [address] 04/21/2025 3:00 PM EDT Appointment [address] [address] Apple Talavera MD [address] [place] [address] 04/27/2025 8:30 AM EDT Office Visit [facility] at [address] [address] Apple Talavera MD [address] [place] [address] documented as of this encounter Results * [...] lowers the sensitivity of mammography. POS - [id number] Narrative 09/04/2019 11:32 AM EDT Full-field digital [...] whichlowers the sensitivity of mammography. POS - [id number] Karlos Lyons MD IMG MG EXAMS documented [...] documented as of this encounter Care Teams Reimbursement Specialist Relationship Specialty Start Date End Date Karlos Lyons MD [address] [place] [address] [email or web address] PCP - General Internal Medicine 07/14/14 05/07/21 Karlos Lyons MD [address] [place] [address] [email or web address] PCP - General Internal Medicine 05/08/21 05/09/22 Sergey Tyson MD [address] [place] [address] [email or web address] PCP - General Internal Medicine 05/10/22 Karlos Lyons MD [address] [place] [address] [email or web address] Insurance Assigned Provider 02/23/17 03/02/23 Omar Rocha MD [address] [place] [address] [email or web address] Medicine [email or web address] 05/08/21 Sagar Leung MD [address] [place] [address] [address] [place] [address] Obstetrics and Gynecology 05/08/21 Yefri Hilliard MD [address] [place] [address] Endocrinology 05/08/21 Karlos Murry MD [address] [place] [address] Gastroenterology 02/27/22 Apple Talavera MD [address] [place] [address] Primary Oncologist Medical Oncology 02/19/23 Sergey Tyson MD [address] [place] [address] [email or web address] Insurance Assigned Provider 02/29/24 Mena Mcwilliams, RN [address] [place] [address] [email or web address] iCMP Shoe Shanker 11/13/23 12/11/23 documented as of this encounter Additional Source Comments The information contained in this document represents components of the legal health record. It is not the complete legal health record.[facility]
--- OUTSIDE RECORDS SUMMARY | 2025-04-02 10:27 | XMS_ITS | Clinical Summary ---
Author Organization [facility] Address [address] [place] [address] Phone Care Team Providers Care Reinforcing Bar Setter Name Role Phone Sergey Tyson MD Primary Care Provider [phone] Social History Tobacco Use Types Packs/Day Years Used Date Smoking Tobacco: Never Assessed Comments Unknown Sex and Gender Information Value Date Recorded Sex Assigned at Not on file Legal Sex Female 12:13 AM EST Gender Identity Not on file Sexual Orientation Not on file Plan of Treatment Health Maintenance Due Date Last Done Comments Breast Cancer Screening 1950 DTaP,Tdap,and Td Vaccines (1 - Tdap) 1969 Pneumococcal Vaccine: 50+ Ye ars (1 of 1 - PCV) 2000 Zoster Vaccines (1 of 2) 2000 COVID-19 Vaccine ( - 2023-2 5 season) 2024 Colorectal Cancer Screening: Colonoscopy 12/25/2024 Depression Screening 12/25/2024 Falls Risk Assessment 12/25/2024 Hepatitis C Screening 12/25/2024 Medicare Annual Wellness Visit 12/25/2024 Osteoporosis Screening (Bone Density Screening) 12/25/2024 Social Influencers of Health Screening 12/25/2024 RSV Immunization Adult Patie nts (1 - 1-dose 75+ series) 2025 Influenza Vaccine (Season Ended) 2025 HIB Vaccines Aged Out No longer eligi ble based on patient's age to complete this topic HPV Vaccines Aged Out No longer eligi ble based on patient's age to complete this topic Hepatitis A Vaccines Aged Out No long er eligible based on patient's age to complete this topic Hepatitis B Vaccines Aged Out No long er eligible based on patient's age to complete this topic IPV Vaccines Aged Out No longer eligi ble based on patient's age to complete this topic MMR Vaccines Aged Out No longer eligi ble based on patient's age to complete this topic Meningococcal ACWY Vaccine Aged Out N o longer eligible based on patient's age to complete this topic Meningococcal B Vaccine Aged Out No l onger eligible based on patient's age to complete this topic RSV Immunization Patients Un guzman 20 months Aged Out No longer eligible b ased on patient's age to complete this topic Varicella Vaccines Aged Out No longer eligible based on patient's age to complete this topic Insurance MEDICARE [facility] Care Teams Reinforcing Bar Setter Relationship Specialty Start Date End Date Sergey Tyson MD [address] [place] [address] PCP - General Internal Medicine 12/24/24
--- OUTSIDE RECORDS SUMMARY | 2025-04-02 10:27 | XMS_ITS | Encounter Summary ---
Author Organization [facility] Address [address] [place] [address] [address] [place] [address] Phone Care Team Providers Care Swine Extension Field Specialist Name Role Phone Karlos Lyons MD Primary Care Provider Karlos Lyons MD Unavailable [phone] Omar Rocha MD Unavailable [phone] Sagar Leung MD Unavailable Karlos Lyons MD Primary Care Provider + [phone] Yefri Hilliard MD Unavailable [phone] Karlos Murry MD Unavailable [phone] Sergey Tyson MD Primary Care Provider Apple Talavera MD Unavailable [phone] Sergey Tyson MD Unavailable Mena Mcwilliams RN Unavailable [phone] Encounter Details Date Type Department Care Team (Late st Contact Info) Description 03/16/2019 Procedure Pass [facility] [address] [place] [address] Social History Tobacco Use Types [...] Contact Info) Description 03/18/2024 Procedure Pass [address] [address] 04/13/2025 9:00 AM EDT Appointment [facility] Medical [facility] Internal Medicine [address] [place] [address] Sergey Tyson MD 40 [place] [address] 04/21/2025 3:00 PM EDT Appointment [address] [address] Apple Talavera MD [address] [place] [address] 04/27/2025 8:30 AM EDT Office Visit [facility] at [address] [address] Apple Talavera MD [address] [place] [address] documented as of this encounter Visit Diagnoses Not on filedocumented in this encounter Additional Health Concerns Infection Onset Date Last Indicated Resolved Time CoV-Risk 05/07/2022 05/07/2022 05/18/2022 1:24 AM EDT Assessment Noted Time PHQ-2 Depression Total Score: 0 10/20/20 10:00 AM EST documented as of this encounter Care Teams Swine Extension Field Specialist Relationship Specialty Start Date End Date Karlos Lyons MD [address] [address] [email or web address] PCP - General Internal Medicine 07/14/14 05/07/21 Karlos Lyons MD [address] [place] [address] [email or web address] PCP - General Internal Medicine 05/08/21 05/09/22 Sergey Tyson MD [address] [place] [address] [email or web address] PCP - General Internal Medicine 05/10/22 Karlos Lyons MD [address] [place] [address] [email or web address] Insurance Assigned Provider 02/23/17 03/02/23 Omar Rocha MD [address] [place] [address] [email or web address] Physical Medicine and Rehabilitation 05/08/21 Sagar Leung MD [address] [place] [address] [address] [place] [address] [email or web address] Obstetrics and Gynecology 05/08/21 Yefri Hilliard MD [address] [place] [address] Endocrinology 05/08/21 Karlos Murry MD [address] [place] [address] [email or web address] Gastroenterology 02/27/22 Apple Talavera MD [address] [place] [address] [email or web address] Primary Oncologist Medical Oncology 02/19/23 Sergey Tyson MD [address] [place] [address] [email or web address] Insurance Assigned Provider 02/29/24 Mena Mcwilliams, RN [address] [place] [address] [email or web address] i[employer] Fire Crew Worker 11/13/23 12/11/23 documented as of this encounter Additional Source Comments The information contained in this document represents components of the legal health record. It is not the complete legal health record.[facility]
--- OUTSIDE RECORDS SUMMARY | 2025-04-02 10:27 | XMS_ITS | Encounter Summary ---
Author Organization [facility] Address [address] [place], [place] [address] [place] [address] Phone Care Team Providers Care Assistant Department Manager Name Role Phone Karlos Lyons MD Primary Care Provider Karlos Lyons MD Unavailable [phone] Omar Rocha MD Unavailable [phone] Sagar Leung MD Unavailable Karlos Lyons MD Primary Care Provider + [phone] Yefri Hilliard MD Unavailable [phone] Karlos Muryr MD Unavailable [phone] Sergey Tyson MD Primary Care Provider [phone] Apple Talavera MD Unavailable [phone] Sergey Tyson MD Unavailable Mena Mcwilliams RN Unavailable [phone] Encounter Details Date Type Department Care Team (Late st Contact Info) Description 08/19/2018 Ancillary Orders [facility] Internal Medicine [address] [place] [address] Karlos Lyons MD [address] [place] [address] [email or web address] Breast screening Social History Tobacco Use Types [...] st Contact Info) Description 03/18/2024 Procedure Pass [address] [address] 04/13/2025 9:00 AM EDT Appointment [facility] Internal Medicine [address] [place] [address] Sergey Tyson MD [address] [place] [address] 04/21/2025 3:00 PM EDT Appointment [address] [address] Apple Talavera MD [address] [place] [address] 04/27/2025 8:30 AM EDT Office Visit [facility] Cancer Center at [address] [address] Apple Talavera MD [address] [place] [address] documented as of this encounter Visit Diagnoses Diagnosis Breast screening Breast screening, unspecified documented in this encounter Additional Health Concerns Infection Onset Date Last Indicated Resolved Time CoV-Risk 05/07/2022 05/07/2022 05/18/2022 1:24 AM EDT documented as of this encounter Care Teams Assistant Department Manager Relationship Specialty Start Date End Date Karlos Lyons MD [address] [address] [email or web address] PCP - General Internal Medicine 07/14/14 05/07/21 Karlos Lyons MD [address] [place] [address] [email or web address] PCP - General Internal Medicine 05/08/21 05/09/22 Sergey Tyson MD [address] [place] [address] [email or web address] PCP - General Internal Medicine 05/10/22 Karlos Lyons MD [address] [place] [address] [email or web address] Insurance Assigned Provider 02/23/17 03/02/23 Omar Rocha MD [address] [place] [address] [email or web address] Physical Medicine and Rehabilitation 05/08/21 Sagar Leung MD [address] [place] [address] [address] [place] [address] [email or web address] Obstetrics and Gynecology 05/08/21 Yefri Hilliard MD [address] [place] [address] Endocrinology 05/08/21 Karlos Murry MD [address] [place] [address] [email or web address] Gastroenterology 02/27/22 Apple Taalvera MD [address] [place] [email or web address] Primary Oncologist Medical Oncology 02/19/23 Sergey Tyson MD [address] [place] [address] [email or web address] Insurance Assigned Provider 02/29/24 Mena Mcwilliams, RN [address] [place] [address] [email or web address] iC[employer] Local Tanker Truck Driver 11/13/23 12/11/23 documented as of this encounter Additional Source Comments The information contained in this document represents components of the legal health record. It is not the complete legal health record.[facility]
--- OUTSIDE RECORDS SUMMARY | 2025-04-02 10:27 | XMS_ITS | Encounter Summary ---
Author Organization [facility] Address [address] [place] [address] [address] [place] [address] Phone Care Team Providers Care Supervisor Doping Name Role Phone Karlos Lyons MD Primary Care Provider Karlos Lyons MD Unavailable [phone] Omar Rocha MD Unavailable [phone] Sagar Leung MD Unavailable Karlos Lyons MD Primary Care Provider + [phone] Yefri Hilliard MD Unavailable [phone] Karlos Murry MD Unavailable [phone] Sergey Tyson MD Primary Care Provider [phone] Apple Talavera MD Unavailable [phone] Sergey Tyson MD Unavailable Mena Mcwilliams RN Unavailable [phone] Encounter Details Date Type Department Care Team (Late st Contact Info) Description 09/14/[address] [facility] [address] [address] [place], [place] [phone] Apple Talavera MD [address] [place] [address] Abnormal findings on diagnostic imaging of breast [...] st Contact Info) Description 03/18/2024 Procedure Pass [address] [address] 04/13/2025 9:00 AM EDT Appointment [facility] Internal Medicine [address] [place] [address] Sergey Tyson MD [address] [place] [address] 04/21/2025 3:00 PM EDT Appointment [address] [address] Apple Talavera MD [address] [place] [address] 04/27/2025 8:30 AM EDT Office Visit [facility] at [address] [address] Apple Talavera MD [address] [place] [address] documented as of this encounter Visit Diagnoses Diagnosis Abnormal findings on diagnostic imaging of breast Other (abnormal) findings on radiological examination of breast documented in this encounter Additional Health Concerns Infection Onset Date Last Indicated Resolved Time CoV-Risk 05/07/2022 05/07/2022 05/18/2022 1:24 AM EDT documented as of this encounter Care Teams Supervisor Doping Relationship Specialty Start Date End Date Karlos Lyons MD [address] [address] [email or web address] PCP - General Internal Medicine 07/14/14 05/07/21 Karlos Lyons MD [address] [place] [address] [email or web address] PCP - General Internal Medicine 05/08/21 05/09/22 Sergey Tyson MD [address] [place] [address] [email or web address] PCP - General Internal Medicine 05/10/22 Karlos Lyons MD [address] [place] [address] [email or web address] Insurance Assigned Provider 02/23/17 03/02/23 Omar Rcoha MD [address] [place] [address] [email or web address] Medicine and Rehabilitation 05/08/21 Sagar Leung MD [address] [place] [address], [address] [place] [address] [email or web address] Obstetrics and Gynecology 05/08/21 Yefri Hilliard MD [address] [place] [address] Endocrinology 05/08/21 Karlos Murry MD [address] [place] [address] [email or web address] Gastroenterology 02/27/22 Apple Talavera MD [address] [place] [address] [email or web address] Primary Oncologist Medical Oncology 02/19/23 Sergey Tyson MD [address] [place] [address] [email or web address] Insurance Assigned Provider 02/29/24 Mena Mcwilliams, RN [address] [place] [address] [email or web address] [employer] Supervisor 11/13/23 12/11/23 documented as of this encounter Additional Source Comments The information contained in this document represents components of the legal health record. It is not the complete legal health record.[facility]
--- OUTSIDE RECORDS SUMMARY | 2025-04-02 10:27 | XMS_ITS | Encounter Summary ---
Author Organization [facility] Address [address] [place] [address] Phone Care Team Providers Care Cooker Cleaner Name Role Phone Karlos Lyons MD Primary Care Provider [phone] Karlos Lyons MD Unavailable [phone] Omar Rocha MD Unavailable [phone] Sagar Leung MD Unavailable Karlos Lyons MD Primary Care Provider Yefri Hilliard MD Unavailable [phone] Karlos Murry MD Unavailable [phone] Sergey Tyson MD Primary Care Provider [phone] Apple Talavera MD Unavailable [phone] Sergey Tyson MD Unavailable Mena Mcwilliams RN Unavailable [phone] Reason for Referral * Outpatient Procedure - Closed Specialty Diagnoses / Procedures Referred By Jessica balbuena Referred To Contact Radiology Diagnoses Dyspepsia Procedures NM Gastric Emptying Karlos Murry MD [address] [place] [address] Email: Referral ID Status Reason Start Date Expiration Date Visits Re quested Visits Authorized [id number] Closed 01/09/2018 01/09/2019 1 1 Encounter Details Date Type Department Care Team (Late st Contact Info) Description 01/09/2018 Ancillary Orders Virtual Department [address] [place] [address] Karlos Murry MD [address] [place] [address] Dyspepsia Social History Tobacco Use Types Packs/Day [...] (Late Contact Info) Description 03/18/2024 Procedure Pass [address] [address] 04/13/2025 9:00 AM EDT Appointment [facility] Internal Medicine [address] [place] [address] Sergey Tyson MD [address] [place] [address] 04/21/2025 3:00 PM EDT Appointment [address] [address] Apple Talavera MD [address] [place] [address] 04/27/2025 8:30 AM EDT Office Visit [facility] at [address] [address] Apple Talavera MD [address] [place] [address] [email or web address] documented as of this encounter Results * [...] documented as of this encounter Care Teams Cooker Cleaner Relationship Specialty Start Date End Date Karlos Lyons MD [address] [address] [email or web address] PCP - General Internal Medicine 07/14/14 05/07/21 Karlos Lyons MD [address] [place] [address] [email or web address] PCP - General Internal Medicine 05/08/21 05/09/22 Sergey Tyson MD [address] [place] [address] [email or web address] PCP - General Internal Medicine 05/10/22 Karlos Lyons MD [address] [place] [address] [email or web address] Insurance Assigned Provider 02/23/17 03/02/23 Omar Rocha MD [address] [place] [address] [email or web address] Physical Medicine and Rehabilitation 05/08/21 Sagar Leung MD [address] [facility], [address] [place] [address] [email or web address] Obstetrics and Gynecology 05/08/21 Yefri Hilliard MD [address] [place] [address] Endocrinology 05/08/21 Karlos Murry MD [address] [place] [address] [email or web address] Gastroenterology 02/27/22 Apple Talavera MD [address] [place] [address] [email or web address] Primary Oncologist Medical Oncology 02/19/23 Sergey Tyson MD [address] [place] [address] [email or web address] Insurance Assigned Provider 02/29/24 Mena Mcwilliams, RN [address] [place] [address] [email or web address] [employer] Forest Aide 11/13/23 12/11/23 documented as of this encounter Additional Source Comments The information contained in this document represents components of the legal health record. It is not the complete legal health record.[facility]
--- OUTSIDE RECORDS SUMMARY | 2025-04-02 10:27 | XMS_ITS | Encounter Summary ---
Author Organization [facility] Address [address] [facility] [address] [place] [address] Phone Care Team Providers Care Jig Hand Name Role Phone Karlos Lyons MD Primary Care Provider [phone] Karlos Lyons MD Unavailable [phone] Omar Rocha MD Unavailable Sagar Leung MD Unavailable Karlos Lyons MD Primary Care Provider Yefri Hilliard MD Unavailable [phone] Karlos Murry MD Unavailable [phone] Sergey Tyson MD Primary Care Provider Apple Talavera MD Unavailable [phone] Sergey Tyson MD Unavailable Mena Mcwilliams RN Unavailable [phone] Reason for Referral * Consultation (Within 1 month) - Closed Specialty Diagnoses / Procedures Referred By Jessica balbuena Referred To Contact Rheumatology Marquita Jacobo MD [address] [place] [address] [address] [place] [address] Referral ID Status Reason Start Date Expiration Date Visits Re quested Visits Authorized [id number] Closed 05/30/2018 05/31/2019 1 1 Encounter Details Date Type Department Care Team (Late Contact Info) Description 05/30/2018 Transcribe Orders [facility] Rheumatology [address], [address] [place] [address] Marquita Jacobo MD [address] [facility] [address] [place] [address] [email or web address] Social History Tobacco Use Types Packs/Day Years [...] (Late Contact Info) Description 03/18/2024 Procedure Pass [address] [address] 04/13/2025 9:00 AM EDT Appointment [facility] [place] Internal Medicine [address] [place] [address] Sergey Tyson MD [address] [place] [address] [email or web address] 04/21/2025 3:00 PM EDT Appointment [address] [address] Apple Talavera MD [address] [place] [address] [email or web address] 04/27/2025 8:30 AM EDT Office Visit [facility] [address] [place] [address] Apple Talavera MD [address] [place] [address] [email or web address] Scheduled Referrals Name Type Priority Associated Diagnoses Order Schedule Ambulatory referral to [facility] Rheumatology Outpatient Referral Routine Ordered: 05/30/2018 documented as of this encounter Visit Diagnoses Not on filedocumented in this encounter Additional Health Concerns Infection Onset Date Last Indicated Resolved Time CoV-Risk 05/07/2022 05/07/2022 05/18/2022 1:24 AM EDT documented as of this encounter Care Teams Jig Hand Relationship Specialty Start Date End Date Karlos Lyons MD [address] [place] [address] [email or web address] PCP - General Internal Medicine 07/14/14 05/07/21 Karlos Lyons MD [address] [place] [address] [email or web address] PCP - General Internal Medicine 05/08/21 05/09/22 Sergey Tyson MD [address] [place] [address] [email or web address] PCP - General Internal Medicine 05/10/22 Karlos Lyons MD [address] [place] [address] [email or web address] Insurance Assigned Provider 02/23/17 03/02/23 Omar Rocha MD [address] [place] [address] [address] [place] [address] [email or web address] Physical Medicine and Rehabilitation 05/08/21 Sagar Leung MD [address] [place] [address], [address] [place] [address] Obstetrics and Gynecology 05/08/21 Yefri Hilliard MD [address] [place] [address] Endocrinology 05/08/21 Karlos Murry MD [address] [place] [address] Gastroenterology 02/27/22 Apple Talavera MD 30 [place] [address] Primary Oncologist Medical Oncology 02/19/23 Sergey Tyson MD [address] [place] [address] Insurance Assigned Provider 02/29/24 Mena Mcwilliams, RN [address] [place] [address] [email or web address] [employer] Rubber Insulator 11/13/23 12/11/23 documented as of this encounter Additional Source Comments The information contained in this document represents components of the legal health record. It is not the complete legal health record.[facility]
--- OUTSIDE RECORDS SUMMARY | 2025-04-02 10:27 | XMS_ITS | Encounter Summary ---
Author Organization [facility] Address [facility] [address] [place] [address] Phone Care Team Providers Care Hospital Liaison Name Role Phone Omar Rocha MD Unavailable Sagar Leung MD Unavailable Yefri Hilliard MD Unavailable [phone] Karlos Murry MD Unavailable Sergey Tyson MD Primary Care Provider Apple Talavera MD Unavailable Sergey Tyson MD Unavailable Reason for Visit * Reason Comments Follow Up Visit ED [facility] Encounter Details Date Type Department Care Team (Late st Contact Info) Description 04/01/2025 10:20 AM EDT Office Visit [facility] Internal Medicine [address] [place], [place] [phone] Dia Álvarez PA-C [address] [place], [place] [phone] Pneumonia of both lower lobes due to infectious organism (Primary Dx); Generalized abdominal pain Social History Tobacco Use Types Packs/Day Years [...] Mass Index 19.49 04/01/2025 10:16 AM EDT documented in this encounter Progress Notes * Dia Álvarez PA-C - 04/01/2025 10:20 AM EDT Subjective Kaylyn Doan is a 74 y.o. female. History of Present Illness The patient is a 74-year-old female who presents for an ER follow-up. Was seen in the office on 03/23/2025 and was ultimately diagnosed with right lower lobe pneumonia and was started on clarithromycin x 7 days due to her extensive allergy list. On 03/30/2025 she ultimately went to [facility] ER due to left lower quadrant abdominal pain rating to the left flank. Workup was obtained which included a CT abdomen pelvis which showed bilateral multifocal pneumonia and prominent common bile duct with questioning stricture in the centerof Oddi. Bedside ultrasound was also performed which showed no significant findings. GI was consulted due to the abdominal pain and recommended outpatient follow-up. She was given an enema in the ED due to stool burden that was seen on the CT, occult stool was negative. She was started on a Z-Golden for the multifocal pneumonia due to the productive cough. She was ultimately discharged same day withoutpatient GI and PCP follow-up. She reports a general improvement in her condition but continues to experience weakness, unsteadiness during ambulation, and dizziness while driving. Her respiratory function has improved, although she experiences mild shortness of breath upon exertion. She does not report any chest pain. She is currently on a regimen of Z-Golden 500 mg, followed by a reduced dose of 250 mg for the subsequent 4 days. She has 3 more days of antibiotics left. She has a long-standing history of abdominal issues and is under the care of Dr. Murry. She describes constant pain in the region of her gallbladder and pancreas, with the gallbladder being notablyinflamed. She has an upcoming appointment with a manager communication on Saturday. Additionally, she reports umbilical pain, intermittent diarrhea, and occasional foul-smelling, greasy stools. She has a family history of gallbladder disease, with her mother, sister, and grandmother all having had the condition. Current Outpatient Medications Ordered in [facility] Medication Sig albuterol 90 mcg/actuation inhaler Inhale 2 puffs into the lungs every 6 (six) hours as needed for wheezing. 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 cyanocobalamin, vitamin B-12, (VITAMIN B-12 ORAL) Take [...] TAKE 1 TABLET BY MOUTH EVERY DAY nystatin (MYCOSTATIN) 100,000 units/mL suspension Take 5 [...] bedtime. Indications: managed by Dr. Rocha at [facility] simethicone 125 mg Cap Take 125 mg by mouth 3 (three) times a day as needed. magnesium oxide (URO-MAG) 84.5 mg mag (140 mg) Cap Take 1 capsule (140 mg total) by mouth nightly at bedtime. Review of Systems All other systems reviewed and are negative. Objective Physical Exam Blood pressure (!) 140/80, pulse 95, temperature 36.5 ??C (97.7 ??F), temperature source Temporal, resp. rate 13, height 165 cm (5' 4.96 ), weight 53.1 kg (117 lb), SpO2 95%. Gen: Alert, pleasant and cooperative, no acute distress. HEENT: Atraumatic, normocephalic. PERRL. No gross hearing deficits noted. Mucous membranes moist. Neck supple and symmetrical. Skin: [place], warm, dry. Chest: No focal tenderness to palpitation. Lungs clear to auscultation bilaterally without accessory breath sounds or increased respiratory effort. CV: RRR, no murmurs, rubs, gallops appreciated. No LE edema bilaterally. Ext: No gross deformities. Moving all extremities comfortably. Neuro: CN II-XII grossly intact. Alert and oriented x 3. Normal speech and language. Memory intact.Mood appropriate. Results Assessment & Plan 1. Pneumonia. Right lower lobe pneumonia transition to bilateral [...] improvement of her symptoms and lung function. 2. Abdominal pain. She notes longstanding history of abdominal issues including left lower quadrant abdominal pain andright upper quadrant abdominal pain with occasional acid like sensations . She did have a CT abdomen pelvis which noted prominent common bile duct and questioning stricture of the center of Oddi. She has a follow-up with [facility] on Saturday. She is advised to maintain adequate hydration and to avoid foods high in fat to prevent exacerbation of pain. Discussed the possibility of an MRCP with GI. I obtained verbal consent from the patient or their proxy to record this visit for purposes of producing a draft of the encounter documentation. Dia Álvarez PA-C documented in this encounter Miscellaneous Notes * Assessment & Plan Note - Dia Álvarez PA-C - 04/01/2025 11:19 AM EDT Associated Problem(s): Generalized abdominal pain She notes longstanding history of abdominal issues including left lower quadrant abdominal pain andright upper quadrant abdominal pain with occasional acid like sensations . She did have a CT abdomen pelvis which noted prominent common bile duct and questioning stricture of the center of Oddi. She has a follow-up with [facility] on Saturday. She is advised to maintain adequate hydration and to avoid foods high in fat to prevent exacerbation of pain. Discussed the possibility of an MRCP with GI. * Assessment & Plan Note - Dia Álvarez PA-C - 04/01/2025 11:19 AM EDT Associated Problem(s): Pneumonia of both lower lobes due to infectious organism Right lower lobe pneumonia transition to bilateral [...] improvement of her symptoms and lung function. documented in this encounter Plan of Treatment Upcoming Encounters Date Type Department Care Team (Late st Contact Info) Description 03/18/2024 Procedure Pass [address] [address] 04/13/2025 9:00 AM EDT Appointment [facility] Internal Medicine [address] [place] [address] Sergey Tyson MD [address] [place] [address] 04/21/2025 3:00 PM EDT Appointment [address] [address] Apple Talavera MD [address] [place] [address] 04/27/2025 8:30 AM EDT Office Visit [facility] at [address] [address] Apple Talavera MD [address] [place] [address] documented as of this encounter Visit Diagnoses Diagnosis Pneumonia of both lower lobes due to infectious organism- Primary Generalized abdominal pain Abdominal pain, generalized documented in this encounter Additional Health Concerns Assessment Noted Time PHQ-9 Depression Total Score: 3 09/11/20 24 9:24 AM EDT PHQ-2 Depression Total Score: 1 09/11/20 24 9:24 AM EDT documented as of this encounter Care Teams Hospital Liaison Relationship Specialty Start Date End Date Sergey Tyson MD [address] [place] [address] [email or web address] PCP - General Internal Medicine 05/10/22 Omar Rocha MD [email or web address] 05/08/21 Sagar Leugn MD [address] [place] [address] [address] [place] [address] Obstetrics and Gynecology 05/08/21 Yefri Hilliard MD [address] [place] [address] Endocrinology 05/08/21 Karlos Murry MD [address] [place] [address] Gastroenterology 02/27/22 Apple Talavera MD [address] [place] [address] Primary Oncologist Medical Oncology 02/19/23 Sergey Tyson MD [address] [place] [address] [email or web address] Insurance Assigned Provider 02/29/24 documented as of this encounter Additional Source Comments The information contained in this document represents components of the legal health record. It is not the complete legal health record.[facility]
--- OUTSIDE RECORDS SUMMARY | 2025-04-02 10:27 | XMS_ITS | Encounter Summary ---
Author Organization [facility] Address [address] [place] [address] Care Team Providers Care Manager Pet Name Role Phone Sergey Tyson MD Primary Care Provider [phone] Encounter Details Date Type Department Care Team (Late st Contact Info) Description 12/24/2024 Lab Requisition [facility] - Main Lab [address] [facility] [place] [address] [employer] J[employer] PA [address] [place] [address] Calculus of kidney Social History Tobacco Use [...] LAB CHEMISTRY METHOD 12/24/2024 7:29 PM EST [facility] Blood Venous blood specimen / Unknown 12/24/2024 2:15 PM EST 12/24/2024 6:35 PM EST [employer] [facility] NE LAB BLOOD ORDERABLES Final Re sult Performing Organization Address City/[facility]/ZIP Co de Phone Number [facility] [address] [place] [address], [place] [phone] * Parathyroid hormone intact (12/24/2024 2:15 PM EST) PTH 36.6 18.5 - 88.0 pcg/mL LAB CHEMISTRY METHOD 12/24/2024 7:29 PM EST [facility] Blood Venous blood specimen / Unknown 12/24/2024 2:15 PM EST 12/24/2024 6:35 PM EST [employer] J[facility] NE LAB BLOOD ORDERABLES Final Re sult Performing Organization Address [facility]/ZIP Co de Phone Number [facility] [address] [place] [address], [place] [phone] documented in this encounter Visit Diagnoses Diagnosis Calculus of kidney documented in this encounter Care Teams Manager Pet Relationship Specialty Start Date End Date Sergey Tyson MD [address] [place] [address] PCP - General Internal Medicine 12/24/24 documented as of this encounter
--- OUTSIDE RECORDS SUMMARY | 2025-04-02 10:27 | XMS_ITS | Encounter Summary ---
Author Organization [facility] Address [address] [place] [address] [address] [place] [address] Phone Care Team Providers Care Relay Tester Name Role Phone Karlos Lyons MD Primary Care Provider Karlos Lyons MD Unavailable [phone] Omar Rocha MD Unavailable [phone] Sagar Leung MD Unavailable Karlos Lyons MD Primary Care Provider + [phone] Yefri Hilliard MD Unavailable [phone] Karlos Murry MD Unavailable [phone] Sergey Tyson MD Primary Care Provider Apple Talavera MD Unavailable [phone] Sergey Tyson MD Unavailable Mena Mcwilliams RN Unavailable [phone] Reason for Referral * Occupational Therapy (Routine) - Closed Specialty Diagnoses / Procedures Referred By Jessica balbuena Referred To Contact Occupational Therapy Diagnoses Encounter for rehabilitation System, Provider Not In, PhD [facility] [address] [place] [address] [address] Referral ID Status Reason Start Date Expiration Date Visits Re quested Visits Authorized [id number] Closed 02/14/2018 11/24/2018 99 99 Encounter Details Date Type Department Care Team (Latest Contact Info) Description 02/14/2018 Transcribe Orders [facility] [address] [place] [address] Theresa Peterson [facility] [place] [address] [email or web address] Encounter for rehabilitation (Primary Dx) Social History [...] Contact Info) Description 03/18/2024 Procedure Pass [address] [address] 04/13/2025 9:00 AM EDT Appointment [facility] Internal Medicine [address] [place] [address] Sergey Tyson MD [address] [place] [address] 04/21/2025 3:00 PM EDT Appointment [address] [address] Apple Talavera MD [address] [place] [address] 04/27/2025 8:30 AM EDT Office Visit [facility] at [address] [address] Apple Talavera MD [address] [place] [address] [email or web address] Scheduled Referrals Name Type Priority Associated Diagnoses Orde r Schedule Ambulatory referral to [facility] Occupational Therapy Outpatient Referral Routine Encounter for rehabilitation Ordered: 02/14/2018 documented as of this encounter Visit Diagnoses Diagnosis Encounter for rehabilitation- Primary documented in this encounter Additional Health Concerns Infection Onset Date Last Indicated Resolved Time CoV-Risk 05/07/2022 05/07/2022 05/18/2022 1:24 AM EDT documented as of this encounter Care Teams Relay Tester Relationship Specialty Start Date End Date Karlos Lyons MD [address] [place] [address] [email or web address] PCP - General Internal Medicine 07/14/14 05/07/21 Karlos Lyons MD [address] [place] [address] [email or web address] PCP - General Internal Medicine 05/08/21 05/09/22 Sergey Tyson MD [address] [place] [address] [email or web address] PCP - General Internal Medicine 05/10/22 Karlos Lyons MD [address] [place] [address] [email or web address] Insurance Assigned Provider 02/23/17 03/02/23 Omar Rocha MD [address] [place] [address] [email or web address] Physical Medicine and Rehabilitation 05/08/21 Sagar Leung MD [address] [facility], [address] [place] [address] Obstetrics and Gynecology 05/08/21 Yefri Hilliard MD [address] [place] [address] Endocrinology 05/08/21 Karlos Murry MD [address] [place] [address] [email or web address] Gastroenterology 02/27/22 Apple Talavera MD [address] [place] [address] [email or web address] Primary Oncologist Medical Oncology 02/19/23 Sergey Tyson MD [address] [place] [address] [email or web address] Insurance Assigned Provider 02/29/24 Mena Mcwilliams, RN [address] [place] [address] [email or web address] iCMP Manager Pulmonary 11/13/23 12/11/23 documented as of this encounter Additional Source Comments The information contained in this document represents components of the legal health record. It is not the complete legal health record.[facility]
--- OUTSIDE RECORDS SUMMARY | 2025-04-02 10:27 | XMS_ITS | Encounter Summary ---
Author Organization [facility] Address [address] [place] [address] [address] [place] [address] Phone Care Team Providers Care Outdoor Landscape Architect Name Role Phone Karlos Lyons MD Primary Care Provider Karlos Lyons MD Unavailable [phone] Omar Rocha MD Unavailable [phone] Sagar Leung MD Unavailable Karlos Lyons MD Primary Care Provider [phone] Yefri Hilliard MD Unavailable [phone] Karlos Murry MD Unavailable [phone] Sergey Tyson MD Primary Care Provider Apple Talavera MD Unavailable [phone] Sergey Tyson MD Unavailable Mena Mcwilliams RN Unavailable [phone] Reason for Referral * Outpatient Procedure - Closed Specialty Diagnoses / Procedures Referred By Jessica balbuena Referred To Contact Radiology Diagnoses Bilateral hand pain Complex regional pain syndrome type 1 of both upper extremities Procedures NM Bone Flow 3 Phase Omar Rocha MD [address] [place] [address] Email: [email or web address] Referral ID Status Reason Start Date Expiration Date Visits Re quested Visits Authorized [id number] Closed 04/17/2018 04/17/2019 1 1 Encounter Details Date Type Department Care Team (Late Contact Info) Description 04/17/2018 Ancillary Orders Virtual Department [address] [place] [address] Omar Rocha MD [address] [place] [address] [email or web address] Bilateral hand pain; Complex regional pain syndrome [...] (Late Contact Info) Description 03/18/2024 Procedure Pass [address] [address] 04/13/2025 9:00 AM EDT Appointment [facility] Internal Medicine [address] [place] [address] Sergey Tyson MD [address] [place] [address] 04/21/2025 3:00 PM EDT Appointment [address] [address] Apple Talavera MD [address] [place] [address] 04/27/2025 8:30 AM EDT Office [facility] at Annie Ruggiero [address] [place] [address] Apple Talavera MD 30 [place] [address] documented as of this encounter Results * [...] documented as of this encounter Care Teams Outdoor Landscape Architect Relationship Specialty Start Date End Date Karlos Lyons MD [address] [address] [email or web address] PCP - General Internal Medicine 07/14/14 05/07/21 Karlos Lyons MD [address] [address] [email or web address] PCP - General Internal Medicine 05/08/21 05/09/22 Sergey Tyson MD [address] [place] [address] [email or web address] PCP - General Internal Medicine 05/10/22 Karlos Lyons MD [address] [place] [address] [email or web address] Insurance Assigned Provider 02/23/17 03/02/23 Omar Rocha MD [address] [place] [address] [email or web address] Physical Medicine and Rehabilitation 05/08/21 Sagar Leung MD [address] [place] [address] [email or web address] Obstetrics and Gynecology 05/08/21 Yefri Hilliard MD [address] [place] [address] Endocrinology 05/08/21 Karlos Murry MD [address] [place] [address] [email or web address] Gastroenterology 02/27/22 Apple Talavera MD [address] [place] [address] [email or web address] Primary Oncologist Medical Oncology 02/19/23 Sergey Tyson MD [address] [place] [address] [email or web address] Insurance Assigned Provider 02/29/24 Mena Mcwilliams, RN [address] [place] [address] [email or web address] iCMP Wire Winder 11/13/23 12/11/23 documented as of this encounter Additional Source Comments The information contained in this document represents components of the legal health record. It is not the complete legal health record.[facility]
== END 2025-04-02 11:28 | disposition home or self-care (01) ==
LOC: HO.HGI 09:58
PROVIDERS: PCP Internal Medicine; Visit Provider Nurse Practitioner
DX: R10.11 Right upper quadrant pain (principal); K90.9 Intestinal malabsorption, unspecified; A04.8 Other specified bacterial intestinal infections; R19.7 Diarrhea, unspecified; R62.7 Adult failure to thrive; R63.4 Abnormal weight loss
CPT/HCPCS: 99204

== ENCOUNTER 2025-04-02 09:57 | Outpatient (REF) | payer BC, MEDICARE, SELFPAY ==
--- OUTSIDE RECORDS SUMMARY | 2025-04-02 12:17 | XMS_ITS | Encounter Summary ---
Author Organization [facility] Address [facility] [employer] [facility] [address] [place] [address] Phone Care Team Providers Care Telephone Order Clerk Room Service Name Role Phone Karlos Lyons MD Primary Care Provider Karlos Lyons MD Unavailable [phone] Omar Rocha MD Unavailable [phone] Sagar Leung MD Unavailable Karlos Lyons MD Primary Care Provider + [phone] Yefri Hilliard MD Unavailable [phone] Karlos Murry MD Unavailable [phone] Sergey Tyson MD Primary Care Provider Apple Talavera MD Unavailable [phone] Sergey Tyson MD Unavailable Mena Mcwilliams RN Unavailable [phone] Encounter Details Date Type Department Care Team (Late st Contact Info) Description 08/06/2020 Procedure Pass [facility], [address] [phone] Social History Tobacco Use Types Packs/Day Years [...] st Contact Info) Description 03/18/2024 Procedure Pass [address] [address] 04/13/2025 9:00 AM EDT Appointment [facility] Internal Medicine [address] [place] [address] Sergey Tyson MD [address] [place] [address] 04/21/2025 3:00 PM EDT Appointment [address] [address] Apple Talavera MD [address] [place] [address] 04/27/2025 8:30 AM EDT Office Visit [facility] at [address] [address] Apple Talavera MD [address] [place] [email or web address] documented as of this encounter Visit Diagnoses Not on filedocumented in this encounter Additional Health Concerns Infection Onset Date Last Indicated Resolved Time CoV-Risk 05/07/2022 05/07/2022 05/18/2022 1:24 AM EDT Assessment Noted Time PHQ-2 Depression Total Score: 0 04/28/20 12:48 PM EDT documented as of this encounter Care Teams Telephone Order Clerk Room Service Relationship Specialty Start Date End Date Karlos Lyons MD [address] [address] [email or web address] PCP - General Internal Medicine 07/14/14 05/07/21 Karlos Lyons MD [address] [place] [address] [email or web address] PCP - General Internal Medicine 05/08/21 05/09/22 Sergey Tyson MD [address] [place] [address] [email or web address] PCP - General Internal Medicine 05/10/22 Karlos Lyons MD [address] [place] [address] [email or web address] Insurance Assigned Provider 02/23/17 03/02/23 Omar Rocha MD [address] [place] [address] [email or web address] Physical Medicine and Rehabilitation 05/08/21 Sagar Leung MD [address] [place] [address], [address] [place] [address] [email or web address] Obstetrics and Gynecology 05/08/21 Yefri Hilliard MD [address] [place] [address] Endocrinology 05/08/21 Karlos Murry MD [address] [place] [address] [email or web address] Gastroenterology 02/27/22 Apple Talavera MD [address] [place] [address] [email or web address] Primary Oncologist Medical Oncology 02/19/23 Sergey Tyson MD [address] [place] [address] [email or web address] Insurance Assigned Provider 02/29/24 Mena Mcwilliams, RN [address] [place] [address] [email or web address] iCMP Best Worker 11/13/23 12/11/23 documented as of this encounter Additional Source Comments The information contained in this document represents components of the legal health record. It is not the complete legal health record.[facility]
--- OUTSIDE RECORDS SUMMARY | 2025-04-02 12:17 | XMS_ITS | Encounter Summary ---
Author Organization [facility] Address [facility] [employer] [facility] [address] [place] [address] Phone Care Team Providers Care Washing Machine Loader Name Role Phone Omar Rocha MD Unavailable Sagar Leung MD Unavailable Yefri Hilliard MD Unavailable [phone] Karlos Murry MD Unavailable Sergey Tyson MD Primary Care Provider [phone] Apple Talavera MD Unavailable [phone] Sergey Tyson MD Unavailable Encounter Details Date Type Department Care Team (Late st Contact Info) Description 03/30/2025 Orders Only [facility] [place] Internal Medicine [address] [place] [address] Provider, MD Avelino [address] [place] [address] Social History Tobacco Use Types Packs/Day [...] st Contact Info) Description 03/18/2024 Procedure Pass [address] [address] 04/13/2025 9:00 AM EDT Appointment [facility] Internal Medicine [address] [place] [address] Sergey Tyson MD [address] [place] [address] 04/21/2025 3:00 PM EDT Appointment [address] [address] Apple Talavera MD [address] [place] [address] 04/27/2025 8:30 AM EDT Office Visit [facility] Center at [address] [address] Apple Talavera MD [address] [place] [address] [email or web address] documented as of this encounter Procedures [...] documented as of this encounter Care Teams Washing Machine Loader Relationship Specialty Start Date End Date Sergey Tyson MD [address] [place] [address] [email or web address] PCP - General Internal Medicine 05/10/22 Omar Rocha MD [email or web address] Physical Medicine and Rehabilitation 05/08/21 Sagar Leung MD [address] [place] [address], [address] [address] [email or web address] Obstetrics and Gynecology 05/08/21 Yefri Hilliard MD [address] [place] [address] Endocrinology 05/08/21 Karlos Murry MD [address] [place] [address] Gastroenterology 02/27/22 Apple Talavera MD [address] [place] [address] Primary Oncologist Medical Oncology 02/19/23 Sergey Tyson MD [address] [place] [address] Insurance Assigned Provider 02/29/24 documented as of this encounter Additional Source Comments The information contained in this document represents components of the legal health record. It is not the complete legal health record.[facility]
--- OUTSIDE RECORDS SUMMARY | 2025-04-02 12:17 | XMS_ITS | Encounter Summary ---
Author Organization [facility] Address [facility] [employer] [facility] [address] [place] [address] Phone Care Team Providers Care Senior Administrative Services Officer Name Role Phone Omar Rocha MD Unavailable Sagar Leung MD Unavailable Yefri Hilliard MD Unavailable [phone] Karlos Murry MD Unavailable [phone] Sergey Tyson MD Primary Care Provider [phone] Apple Talavera MD Unavailable Sergey Tyson MD Unavailable Reason for Visit * Reason Onset Date Comments Referral 03/18/2025 Gastroenterology Encounter Details Date Type Department Care Team (Late st Contact Info) Description 03/18/2025 Telephone [facility] [place] Internal Medicine [address] [place], [place] [phone] Sergey Tyson MD [address] [place] [address] [email or web address] Referral (Gastroenterology) Social History [...] Pt states she called weeks ago for organizational consultant referral but request says it was created on 03/18/25. She would like to know why this is not done yet. Please call [phone] documented in this encounter Plan of Treatment Upcoming Encounters Date Type Department Care Team (Late st Contact Info) Description 03/18/2024 Procedure Pass [address] [address] 04/13/2025 9:00 AM EDT Appointment [facility] Internal Medicine [address] [place] [address] Sergey Tyson MD [address] [place] [address] 04/21/2025 3:00 PM EDT Appointment [address] [address] Apple Talavera MD [address] [place] [address] 04/27/2025 8:30 AM EDT Office Visit [facility] Cancer Center at [address] [address] Apple Talavera MD [address] [place] [address] documented as of this encounter Visit Diagnoses Not on filedocumented in this encounter Additional Health Concerns Assessment Noted Time PHQ-9 Depression Total Score: 3 09/11/20 24 9:24 AM EDT PHQ-2 Depression Total Score: 1 09/11/20 24 9:24 AM EDT documented as of this encounter Care Teams Senior Administrative Services Officer Relationship Specialty Start Date End Date Sergey Tyson MD [address] [place] [address] PCP - General Internal Medicine 05/10/22 Omar Rocha MD [email or web address] 05/08/21 Sagar Leung MD [address] [place] [address] [email or web address] Obstetrics and Gynecology 05/08/21 Yefri Hilliard MD [address] [place] [address] Endocrinology 05/08/21 Karlos Murry MD [address] [place] [address] Gastroenterology 02/27/22 Apple Talavera MD [address] [place] [address] Primary Oncologist Medical Oncology 02/19/23 Sergey Tyson MD [address] [place] [address] Insurance Assigned Provider 02/29/24 documented as of this encounter Additional Source Comments The information contained in this document represents components of the legal health record. It is not the complete legal health record.[facility]
--- OUTSIDE RECORDS SUMMARY | 2025-04-02 12:17 | XMS_ITS | Encounter Summary ---
Author Organization [facility] Address [facility] [employer] [facility] [address] [place] [address] Phone Care Team Providers Care Gambling Dealer Name Role Phone Karlos Lyons MD Unavailable Omar Rocha MD Unavailable [phone] Sagar Leung MD Unavailable Yefri Hilliard MD Unavailable [phone] Karlos Murry MD Unavailable [phone] Sergey Tyson MD Primary Care Provider Apple Talavera MD Unavailable [phone] Sergey Tyson MD Unavailable Mena Mcwilliams RN Unavailable [phone] Encounter Details Date Type Department Care Team (Late st Contact Info) Description 09/13/2022 Procedure Pass [facility] Admitting Dept Virtual Department [address] [place], [place] [phone] Social History Tobacco Use Types Packs/Day Years [...] high school, GED, job training, learning the [place]ian language, technical skills, or developing parenting skills)? [...] st Contact Info) Description 03/18/2024 Procedure Pass [address] [address] 04/13/2025 9:00 AM EDT Appointment [facility] [place] Internal Medicine [address] [place] [address] Sergey Tyson MD 40 [place] [address] 04/21/2025 3:00 PM EDT Appointment [place] [address] [place] [address] Apple Talavera MD [address] [place] [email or web address] 04/27/2025 8:30 AM EDT Office Visit [facility] at [address] [address] Apple Talavera MD [address] [place] [address] [email or web address] documented as of this encounter Visit Diagnoses Not on filedocumented in this encounter Additional Health Concerns Assessment Noted Time PHQ-2 Depression Total Score: 0 09/08/20 22 9:02 AM EDT documented as of this encounter Care Teams Gambling Dealer Relationship Specialty Start Date End Date Sergey Tyson MD [address] [place] [address] [email or web address] PCP - General Internal Medicine 05/10/22 Karlos Lyons MD [address] [place] [address] [email or web address] Insurance Assigned Provider 02/23/17 03/02/23 Omar Rocha MD [address] [place] [address] [email or web address] Physical Medicine and Rehabilitation 05/08/21 Sagar Leung MD [address] [facility], [address] [place] [address] [email or web address] Obstetrics and Gynecology 05/08/21 Yefri Hilliard MD [address] [place] [address] Endocrinology 05/08/21 Karlos Murry MD [address] [place] [address] [email or web address] Gastroenterology 02/27/22 Apple Talavera MD [address] [place] [address] [email or web address] Primary Oncologist Medical Oncology 02/19/23 Sergey Tyson MD [address] [place] [address] [email or web address] Insurance Assigned Provider 02/29/24 Mena Mcwilliams, RN [address] [place] [address] [email or web address] iCMP Forest Aide 11/13/23 12/11/23 documented as of this encounter Additional Source Comments The information contained in this document represents components of the legal health record. It is not the complete legal health record.[facility]
--- OUTSIDE RECORDS SUMMARY | 2025-04-02 12:17 | XMS_ITS | Encounter Summary ---
Author Organization [facility] Address [facility] [address] [place] [address] Phone Care Team Providers Care Electro Tech Name Role Phone Karlos Lyons MD Unavailable [phone] Omar Rocha MD Unavailable Sagar Leung MD Unavailable Karlos Lyons MD Primary Care Provider Yefri Hilliard MD Unavailable Karlos Murry MD Unavailable [phone] Sergey Tyson MD Primary Care Provider Apple Talavera MD Unavailable [phone] Sergey Tyson MD Unavailable Mena Mcwilliams RN Unavailable [phone] Encounter Details Date Type Department Care Team (Late st Contact Info) Description 02/27/2022 Procedure Pass [address] [address] Social History Tobacco Use Types Packs/Day Years [...] Contact Info) Description 03/18/2024 Procedure Pass [address] [address] 04/13/2025 9:00 AM EDT Appointment [facility] Internal Medicine [address] [place] [address] Sergey Tyson MD 40 [place] [address] 04/21/2025 3:00 PM EDT Appointment [address] [address] Apple Talavera MD [address] [place] [address] 04/27/2025 8:30 AM EDT Office Visit [facility] at [address] [address] Apple Talavera MD [address] [place] [address] [email or web address] documented as of this encounter Visit Diagnoses Not on filedocumented in this encounter Additional Health Concerns Infection Onset Date Last Indicated Resolved Time CoV-Risk 05/07/2022 05/07/2022 05/18/2022 1:24 AM EDT Assessment Noted Time PHQ-2 Depression Total Score: 0 01/28/20 6:26 PM EST documented as of this encounter Care Teams Electro Tech Relationship Specialty Start Date End Date Karlos Lyons MD [address] [address] [email or web address] PCP - General Internal Medicine 05/08/21 05/09/22 Sergey Tyson MD [address] [place] [address] [email or web address] PCP - General Internal Medicine 05/10/22 Karlos Lyons MD [address] [address] [email or web address] Insurance Assigned Provider 02/23/17 03/02/23 Omar Rocha MD [address] [place] [address] [email or web address] Physical Medicine and Rehabilitation 05/08/21 Sagar Leung MD [address] [place] [address] [email or web address] Obstetrics and Gynecology 05/08/21 Yefri Hilliard MD [address] [place] [address] Endocrinology 05/08/21 Karlos Murry MD [address] [place] [address] [email or web address] Gastroenterology 02/27/22 Apple Talavera MD [address] [place] [address] [email or web address] Primary Oncologist Medical Oncology 02/19/23 Sergey Tyson MD [address] [place] [address] [email or web address] Insurance Assigned Provider 02/29/24 Mena Mcwilliams, RN [address] [place] [address] [email or web address] i[employer]MP Blocking Machine Tender 11/13/23 12/11/23 documented as of this encounter Additional Source Comments The information contained in this document represents components of the legal health record. It is not the complete legal health record.[facility]
--- OUTSIDE RECORDS SUMMARY | 2025-04-02 12:17 | XMS_ITS | Encounter Summary ---
Author Organization [facility] Address [address] [employer] [employer] [facility] [address] [place] [address] Phone Care Team Providers Care Investigations Manager Name Role Phone Omar Rocha MD Unavailable [phone] Sagar Leung MD Unavailable Yefri Hilliard MD Unavailable Karlos Murry MD Unavailable Sergey Tyson MD Primary Care Provider Apple Talavera MD Unavailable [phone] Sergey Tyson MD Unavailable Reason for Visit * Reason Onset Date Comments Results 03/23/2025 After hours call pneumonia 03/23/2025 Encounter Details Date Type Department Care Team (Late st Contact Info) Description 03/23/2025 Telephone [facility] [address] [place] [address] Sabrina Talavera PA-C [address] [place] [address] [email or web address] Results (After hours call); pneumonia Social History [...] note were not included. Sergey Tyson MD [facility] Yessy Rn2 [...] timeline to feel better - please advise [phone] * Kacy Altman RN - 03/25/2025 9:10 [...] be called into pharmacy - please advise [phone] * Kacy Altman RN - 03/24/2025 8:46 [...] patient multiple times however goes right to [facility] to call back and provide alternate number. Medications prescribed: None documented in this encounter Plan of Treatment Upcoming Encounters Date Type Department Care Team (Late st Contact Info) Description 03/18/2024 Procedure Pass [address] [address] 04/13/2025 9:00 AM EDT Appointment [facility] Internal Medicine [address] [place] [address] Sergey Tyson MD [address] [place] [address] 04/21/2025 3:00 PM EDT Appointment [address] [address] Apple Talavera MD [address] [place] [address] 04/27/2025 8:30 AM EDT Office Visit [facility] at [address] [address] Apple Talavera MD 30 [place] [address] [email or web address] documented as of this encounter Visit Diagnoses Not on filedocumented in this encounter Additional Health Concerns Assessment Noted Time PHQ-9 Depression Total Score: 3 09/11/20 24 9:24 AM EDT PHQ-2 Depression Total Score: 1 09/11/20 24 9:24 AM EDT documented as of this encounter Care Teams Investigations Manager Relationship Specialty Start Date End Date Sergey Tyson MD [address] [place] [address] [email or web address] PCP - General Internal Medicine 05/10/22 Omar Rocha MD [email or web address] Physical Medicine and Rehabilitation 05/08/21 Sagar Leung MD [address] [address] [email or web address] Obstetrics and Gynecology 05/08/21 Yefri Hilliard MD [address] [place] [address] Endocrinology 05/08/21 Karlos Murry MD [address] [place] [address] Gastroenterology 02/27/22 Apple Talavera MD 30 [place] [address] Primary Oncologist Medical Oncology 02/19/23 Sergey Tyson MD [address] [place] [address] [email or web address] Insurance Assigned Provider 02/29/24 documented as of this encounter Additional Source Comments The information contained in this document represents components of the legal health record. It is not the complete legal health record.[facility]
--- OUTSIDE RECORDS SUMMARY | 2025-04-02 12:17 | XMS_ITS | Encounter Summary ---
Author Organization [facility] Address [facility] [address] [place] [address] Phone Care Team Providers Care Vp Of Digital Marketing Name Role Phone Karlos Lyons MD Unavailable Omar Rocha MD Unavailable [phone] Sagar Leung MD Unavailable Karlos Lyons MD Primary Care Provider [phone] Yefri Hilliard MD Unavailable [phone] Karlos Murry MD Unavailable [phone] Sergey Tyson MD Primary Care Provider Apple Talavera MD Unavailable [phone] Sergey Tyson MD Unavailable Mena Mcwilliams RN Unavailable [phone] Encounter Details Date Type Department Care Team (Late st Contact Info) Description 05/07/2022 Procedure Pass [facility], Ct Scan - [address] [address] Social History Tobacco Use Types Packs/Day Years [...] high school, GED, job training, learning the Gambian language, technical skills, or developing parenting skills)? [...] st Contact Info) Description 03/18/2024 Procedure Pass [facility] 30 [place] [address] 04/13/2025 9:00 AM EDT Appointment [facility] Internal Medicine 40 [place] [address] Sergey Tyson MD 40 [place] [address] [email or web address] 04/21/2025 3:00 PM EDT Appointment [facility], [address] [address] Apple Talavera MD [address] [place] [address] [email or web address] 04/27/2025 8:30 AM EDT Office Visit [facility] at [address] [address] Apple Talavera MD [address] [place] [address] [email or web address] documented as of this encounter Visit Diagnoses Not on filedocumented in this encounter Additional Health Concerns Infection Onset Date Last Indicated Resolved Time CoV-Risk 05/07/2022 05/07/2022 05/18/2022 1:24 AM EDT Assessment Noted Time PHQ-2 Depression Total Score: 2 05/05/20 10:17 AM EDT documented as of this encounter Care Teams Vp Of Digital Marketing Relationship Specialty Start Date End Date Karlos Lyons MD [address] [place] [address] [email or web address] PCP - General Internal Medicine 05/08/21 05/09/22 Sergey Tyson MD [address] [place] [address] [email or web address] PCP - General Internal Medicine 05/10/22 Karlos Lyons MD [address] [place] [address] [email or web address] Insurance Assigned Provider 02/23/17 03/02/23 Omar Rocha MD [address] [place] [address] 101 [place] [address] [email or web address] Physical Medicine and Rehabilitation 05/08/21 Sagar Leung MD 22 [facility] [address] [place] [address] Obstetrics and Gynecology 05/08/21 Yefri Hilliard MD [address] [place] [address] Endocrinology 05/08/21 Karlos Murry MD [address] [place] [address] Gastroenterology 02/27/22 Apple Talavera MD [address] [place] [address] Primary Oncologist Medical Oncology 02/19/23 Sergey Tyson MD [address] [place] [address] Insurance Assigned Provider 02/29/24 Mena Mcwilliams, RN [address] [place] [address] [email or web address] iCMP Role Player 11/13/23 12/11/23 documented as of this encounter Additional Source Comments The information contained in this document represents components of the legal health record. It is not the complete legal health record.[facility]
--- OUTSIDE RECORDS SUMMARY | 2025-04-02 12:18 | XMS_ITS | Encounter Summary ---
Author Organization [facility] Address [facility] [address] [place] [address] Phone Care Team Providers Care Wall Worker Name Role Phone Karlos Lyons MD Unavailable [phone] Omar Rocha MD Unavailable Sagar Leung MD Unavailable Karlos Lyons MD Primary Care Provider Yefri Hilliard MD Unavailable Karlos Murry MD Unavailable [phone] Sergey Tyson MD Primary Care Provider [phone] Apple Talavera MD Unavailable [phone] Sergey Tyson MD Unavailable Mena Mcwilliams RN Unavailable [phone] Encounter Details Date Type Department Care Team (Late st Contact Info) Description 05/25/2021 Procedure Pass [place] Admitting Dept - Virtual Department [address] [place] [address] Social History Tobacco Use Types Packs/Day Years [...] Contact Info) Description 03/18/2024 Procedure Pass [address] [address] 04/13/2025 9:00 AM EDT Appointment [facility] Internal Medicine [address] [place] [address] Sergey Tyson MD 40 [place] [address] 04/21/2025 3:00 PM EDT Appointment [address] [address] Apple Talavera MD [address] [place] [address] 04/27/2025 8:30 AM EDT Office Visit [facility] at [address] [address] Apple Talavera MD [address] [place] [address] documented as of this encounter Visit Diagnoses Not on filedocumented in this encounter Additional Health Concerns Infection Onset Date Last Indicated Resolved Time CoV-Risk 05/07/2022 05/07/2022 05/18/2022 1:24 AM EDT Assessment Noted Time PHQ-2 Depression Total Score: 0 05/05/20 21 9:23 PM EDT documented as of this encounter Care Teams Wall Worker Relationship Specialty Start Date End Date Karlos Lyons MD [address] [address] [email or web address] PCP - General Internal Medicine 05/08/21 05/09/22 Sergey Tyson MD [address] [place] [address] [email or web address] PCP - General Internal Medicine 05/10/22 Karlos Lyons MD [address] [address] [email or web address] Insurance Assigned Provider 02/23/17 03/02/23 Omar Rocha MD [address] [place] [address] [email or web address] Physical Medicine and Rehabilitation 05/08/21 Sagar Leung MD [address] [place] [address] [email or web address] Obstetrics and Gynecology 05/08/21 Yefri Hilliard MD [address] [place] [address] Endocrinology 05/08/21 Karlos Murry MD [address] [place] [address] [email or web address] Gastroenterology 02/27/22 Apple Talavera MD [address] [place] [address] [email or web address] Primary Oncologist Medical Oncology 02/19/23 Sergey Tyson MD [address] [place] [address] [email or web address] Insurance Assigned Provider 02/29/24 Mena Mcwilliams, RN [address] [place] [address] [email or web address] iCMP Wall Worker 11/13/23 12/11/23 documented as of this encounter Additional Source Comments The information contained in this document represents components of the legal health record. It is not the complete legal health record.[facility]
--- OUTSIDE RECORDS SUMMARY | 2025-04-02 12:18 | XMS_ITS | Encounter Summary ---
Author Organization [facility] Address [facility] [address] [place] [address] Phone Care Team Providers Care Rail Car Painter/Sandblaster Name Role Phone Karlos Lyons MD Unavailable [phone] Omar Rocha MD Unavailable Sagar Leung MD Unavailable Karlos Lyons MD Primary Care Provider [phone] Yefri Hilliard MD Unavailable [phone] Karlos Murry MD Unavailable [phone] Sergey Tyson MD Primary Care Provider [phone] Apple Talavera MD Unavailable [phone] Sergey Tyson MD Unavailable Mena Mcwilliams RN Unavailable [phone] Encounter Details Date Type Department Care Team (Latest Contact Info) Description 10/25/2021 Transcribe Orders Virtual Department 30 [place], [place] [phone] Karlos Lyons MD [address] [phone] [email or web address] Breast screening (Primary Dx) Social [...] st Contact Info) Description 03/18/2024 Procedure Pass [address] [address] 04/13/2025 9:00 AM EDT Appointment [facility] Internal Medicine [address] [place] [address] Sergey Tyson MD [address] [place] [address] [email or web address] 04/21/2025 3:00 PM EDT Appointment [address] [address] Apple Talavera MD [address] [place] [address] 04/27/2025 8:30 AM EDT Office Visit [facility] Cancer Center at [address] [address] Apple Talavera MD [address] [place] [address] [phone] documented as of this encounter Results * [...] documented as of this encounter Care Teams Rail Car Painter/Sandblaster Relationship Specialty Start Date End Date Karlos Lyons MD [address] [place] [address] [email or web address] PCP - General Internal Medicine 05/08/21 05/09/22 Sergey Tyson MD [address] [place] [address] [email or web address] PCP - General Internal Medicine 05/10/22 Karlos Lyons MD [address] [place] [address] [email or web address] Insurance Assigned Provider 02/23/17 03/02/23 Omar Rocha MD [address] [place] [address] [email or web address] Physical Medicine and Rehabilitation 05/08/21 Sagar Leung MD [address] [place] [address], [facility] [address] [place] [address] [email or web address] Obstetrics and Gynecology 05/08/21 Yefri Hilliard MD [address] [place] [address] Endocrinology 05/08/21 Karlos Murry MD [address] [place] [address] [email or web address] Gastroenterology 02/27/22 Apple Talavera MD 30 [place] [address] [email or web address] Primary Oncologist Medical Oncology 02/19/23 Sergey Tyson MD 40 [place] [address] [email or web address] Insurance Assigned Provider 02/29/24 Mena Mcwilliams, RN [address] [place] [address] [email or web address] [facility] Center[facility] Metal Grader 11/13/23 12/11/23 documented as of this encounter Additional Source Comments The information contained in this document represents components of the legal health record. It is not the complete legal health record.[facility]
--- OUTSIDE RECORDS SUMMARY | 2025-04-02 12:18 | XMS_ITS | Encounter Summary ---
Author Organization [facility] Address [facility] [employer] [facility] [address] [place] [address] Phone Care Team Providers Care Clerical Support Specialist Name Role Phone Karlos Lyons MD Unavailable [phone] Omar Rocha MD Unavailable Sagar Leung MD Unavailable Karlos Lyons MD Primary Care Provider [phone] Yefri Hilliard MD Unavailable Karlos Murry MD Unavailable [phone] Sergey Tyson MD Primary Care Provider Apple Talavera MD Unavailable Sergey Tyson MD Unavailable Mnea Mcwilliams RN Unavailable Encounter Details Date Type Department Care Team (Latest Contact Info) Description 05/08/2021 Transcribe Orders Virtual Department 30 [place], [place] [phone] Omar Rocha MD [address] [place] [address] [email or web address] Left wrist pain (Primary Dx) Social History [...] Contact Info) Description 03/18/2024 Procedure Pass [address] [address] 04/13/2025 9:00 AM EDT Appointment [facility] Internal Medicine 40 [place] [address] Sergey Tyson MD 40 [place] [address] 04/21/2025 3:00 PM EDT Appointment [address] [address] Apple Talavera MD [address] [place] [address] 04/27/2025 8:30 AM EDT Office Visit [facility] General Cancer Center at [address] [address] Apple Talavera MD [address] [place] [address] [phone] documented as of this encounter Results * [...] documented as of this encounter Care Teams Clerical Support Specialist Relationship Specialty Start Date End Date Karlos Lyons MD [address] [address] [email or web address] PCP - General Internal Medicine 05/08/21 05/09/22 Sergey Tyson MD [address] [place] [address] [email or web address] PCP - General Internal Medicine 05/10/22 Karlos Lyons MD [address] [place] [address] [email or web address] Insurance Assigned Provider 02/23/17 03/02/23 Omar Rocha MD [address] [place] [address] [email or web address] Physical Medicine and Rehabilitation 05/08/21 Sagar Leung MD [address] [place] [address] [email or web address] Obstetrics and Gynecology 05/08/21 Yefri Hilliard MD [address] [place] [address] Endocrinology 05/08/21 Karlos Murry MD [address] [place] [address] [email or web address] Gastroenterology 02/27/22 Apple Talavera MD [address] [place] [address] [email or web address] Primary Oncologist Medical Oncology 02/19/23 Sergey Tyson MD [address] [place] [address] [email or web address] Insurance Assigned Provider 02/29/24 Mena Mcwilliams RN [address] [place] [address] [email or web address] iC[employer] Business [employer] Faculty Member 11/13/23 12/11/23 documented as of this encounter Additional Source Comments The information contained in this document represents components of the legal health record. It is not the complete legal health record.[facility]
--- OUTSIDE RECORDS SUMMARY | 2025-04-02 12:18 | XMS_ITS | Encounter Summary ---
Author Organization [facility] Address [facility] [employer] [facility] [address] [place] [address] Phone Care Team Providers Care Administration Manager Name Role Phone Omar Rocha MD Unavailable Sagar Leung MD Unavailable Yefri Hilliard MD Unavailable [phone] Karlos Murry MD Unavailable Sergey Tyson MD Primary Care Provider Apple Talavera MD Unavailable Sergey Tyson MD Unavailable Encounter Details Date Type Department Care Team (Latest Contact Info) Description 03/09/2024 Transcribe Orders Virtual Department 30 [place] [address] Omar Rocha MD [address] [place] [address] [email or web address] Thoracic spine pain (Primary Dx) Social History [...] high school, GED, job training, learning the Barbadian language, technical skills, or developing parenting skills)? [...] st Contact Info) Description 03/18/2024 Procedure Pass [facility], [address] [address] 04/13/2025 9:00 AM EDT Appointment [facility] Internal Medicine 40 [place] [address] Sergey Tyson MD 40 [place] [address] 04/21/2025 3:00 PM EDT Appointment [facility], [address] [address] Apple Talavera MD [address] [place] [address] 04/27/2025 8:30 AM EDT Office Visit [facility] Center at [address] [address] Apple Talavera MD [address] [place] [address] [email or web address] documented as of this encounter Results * [...] documented as of this encounter Care Teams Administration Manager Relationship Specialty Start Date End Date Sergey Tyson MD [address] [place] [address] [email or web address] PCP - General Internal Medicine 05/10/22 Omar Rocha MD [email or web address] Physical Medicine and Rehabilitation 05/08/21 Sagar Leung MD [address] [place] [address] 102 [place] [address] Obstetrics and Gynecology 05/08/21 Yefri Hilliard MD [address] [place] [address] Endocrinology 05/08/21 Karlos Murry MD [address] [place] [address] [email or web address] Gastroenterology 02/27/22 Apple Talavera MD [address] [place] [address] [email or web address] Primary Oncologist Medical Oncology 02/19/23 Sergey Tyson MD [address] [place] [address] [email or web address] Insurance Assigned Provider 02/29/24 documented as of this encounter Additional Source Comments The information contained in this document represents components of the legal health record. It is not the complete legal health record.[facility]
--- OUTSIDE RECORDS SUMMARY | 2025-04-02 12:18 | XMS_ITS | Encounter Summary ---
Author Organization [facility] Address [address] [place] [address] [address] [place] [address] Phone Care Team Providers Care Revolving Inventory Clerk Name Role Phone Karlos Lyons MD Primary Care Provider Karlos Lyons MD Unavailable [phone] Omar Rocha MD Unavailable [phone] Sagar Leung MD Unavailable Karlos Lyons MD Primary Care Provider + [phone] Yefri [place] MD Unavailable [phone] Karlos Murry MD Unavailable [phone] Sergey Tyson MD Primary Care Provider Apple Talavera MD Unavailable [phone] Sergey Tyson MD Unavailable Mena Mcwilliams RN Unavailable [phone] Encounter Details Date Type Department Care Team (Late st Contact Info) Description 04/27/2021 Procedure Pass OR Admitting Dept - Virtual Department [address] [place], [place] [id number] Social History Tobacco Use Types Packs/Day Years [...] st Contact Info) Description 03/18/2024 Procedure Pass [address] [address] 04/13/2025 9:00 AM EDT Appointment [facility] Medical [facility] Internal Medicine [address] [place] [address] Sergey Tyson MD [address] [place] [address] 04/21/2025 3:00 PM EDT Appointment [address] [address] Apple Talavera MD [address] [place] [address] 04/27/2025 8:30 AM EDT Office Visit [facility] at [address] [address] Apple Talavera MD [address] [place] [address] documented as of this encounter Visit Diagnoses Not on filedocumented in this encounter Additional Health Concerns Infection Onset Date Last Indicated Resolved Time CoV-Risk 05/07/2022 05/07/2022 05/18/2022 1:24 AM EDT Assessment Noted Time PHQ-2 Depression Total Score: 0 04/28/20 12:48 PM EDT documented as of this encounter Care Teams Revolving Inventory Clerk Relationship Specialty Start Date End Date Karlos Lyons MD [address] [address] [email or web address] PCP - General Internal Medicine 07/14/14 05/07/21 Karlos Lyons MD [address] [place] [address] [email or web address] PCP - General Internal Medicine 05/08/21 05/09/22 Sergey Tyson MD [address] [place] [address] [email or web address] PCP - General Internal Medicine 05/10/22 Karlos Lyons MD [address] [place] [address] [email or web address] Insurance Assigned Provider 02/23/17 03/02/23 Omar Rocha MD [address] [place] [address] [email or web address] Physical Medicine and Rehabilitation 05/08/21 Sagar Leung MD [address] [place] [address], [address] [place] [address] [email or web address] Obstetrics and Gynecology 05/08/21 Yefri [place] MD [address] [place] [address] Endocrinology 05/08/21 Karlos Murry MD [address] [place] [address] [email or web address] Gastroenterology 02/27/22 Apple Talavera MD [address] [place] [address] [email or web address] Primary Oncologist Medical Oncology 02/19/23 Sergey Tyson MD [address] [place] [address] [email or web address] Insurance Assigned Provider 02/29/24 Mena Mcwilliams, RN [address] [place] [address] [email or web address] [employer] Keno Attendant 11/13/23 12/11/23 documented as of this encounter Additional Source Comments The information contained in this document represents components of the legal health record. It is not the complete legal health record.[facility]
--- OUTSIDE RECORDS SUMMARY | 2025-04-02 12:18 | XMS_ITS | Encounter Summary ---
Author Organization [facility] Address [address] [place] [address] Phone Care Team Providers Care Solar Sales Energy Advisor Name Role Phone Karlos Lyons MD Primary Care Provider Karlos Lyons MD Unavailable [phone] Omar Rocha MD Unavailable [phone] Sagar Leung MD Unavailable Karlos Lyons MD Primary Care Provider + [phone] Yefri [place] MD Unavailable [phone] Karlos Murry MD Unavailable [phone] Sergey Tyson MD Primary Care Provider [phone] Apple Talavera MD Unavailable [phone] Sergey Tyson MD Unavailable Mena Mcwilliams RN Unavailable [phone] Encounter Details Date Type Department Care Team (Late st Contact Info) Description 10/07/2019 Procedure Pass [facility], [facility] - [address] [place] [address] Social History Tobacco Use Types Packs/Day Years [...] st Contact Info) Description 03/18/2024 Procedure Pass [address] [address] 04/13/2025 9:00 AM EDT Appointment [facility] Medical [facility] Internal Medicine [address] [place] [address] Sergey Tyson MD [address] [place] [address] [email or web address] 04/21/2025 3:00 PM EDT Appointment [address] [address] Apple Talavera MD [address] [place] [address] 04/27/2025 8:30 AM EDT Office Visit [facility] at [address] [address] Apple Talavera MD [address] [place] [address] [email or web address] documented as of this encounter Visit Diagnoses Not on filedocumented in this encounter Additional Health Concerns Infection Onset Date Last Indicated Resolved Time CoV-Risk 05/07/2022 05/07/2022 05/18/2022 1:24 AM EDT Assessment Noted Time PHQ-2 Depression Total Score: 0 10/20/20 18 10:00 AM EST documented as of this encounter Care Teams Solar Sales Energy Advisor Relationship Specialty Start Date End Date Karlos Lyons MD [address] [place] [address] [email or web address] PCP - General Internal Medicine 07/14/14 05/07/21 Karlos Lyons MD [address] [place] [address] [email or web address] PCP - General Internal Medicine 05/08/21 05/09/22 Sergey Tyson MD [address] [place] [address] [email or web address] PCP - General Internal Medicine 05/10/22 Karlos Lyons MD [address] [place] [address] [email or web address] Insurance Assigned Provider 02/23/17 03/02/23 Omar Rocha MD [address] [place] [address] [email or web address] Physical Medicine and Rehabilitation 05/08/21 Sagar Leung MD [address] [place] [address], [address] [place] [address] [email or web address] Obstetrics and Gynecology 05/08/21 Yefri [place] MD [address] [place] [address] Endocrinology 05/08/21 Karlos Murry MD [address] [place] [address] [email or web address] Gastroenterology 02/27/22 Apple Talavera MD [address] [place] [address] [email or web address] Primary Oncologist Medical Oncology 02/19/23 Sergey Tyson MD [address] [place] [address] [email or web address] Insurance Assigned Provider 02/29/24 Mena Mcwilliams, RN [address] [place] [address] [email or web address] [email or web address] Wildlife Removal Specialist 11/13/23 12/11/23 documented as of this encounter Additional Source Comments The information contained in this document represents components of the legal health record. It is not the complete legal health record.[facility]
--- OUTSIDE RECORDS SUMMARY | 2025-04-02 12:18 | XMS_ITS | Clinical Summary ---
Author Organization [facility] Address [address] [facility] [address] [place] [address] Phone Care Team Providers Care Heel Trimmer Name Role Phone Omar Rocha MD Unavailable [...] DAY PARTIAL FILL PER PATIENT REQUEST MAY SALES CENTER ASSOCIATE ON 02/14/2023 02/15/2023 Active oxyCODONE HCl 10 mg TabIndications:manag ed by Dr. Rocha at [facility] Take 10 mg by mouth 4 (four) times a day. And take 2 tablets at bedtime. Indications: managed by Dr. Rocha at [facility] 09/29/2023 Active magnesium oxide (URO-MAG) 84.5 mg [...] such lets set the patient up with [facility] orthopedics to reassess if that is indeed [...] Will do the bone density scan at [facility]. In regards to night sweats and some [...] its possible that would overtake this from [facility] but will cross that [...] and ADR Opted to recheck urine at [facility] lab due to [facility]'s protocol on sending out urine for culture [...] several adenomatous polyps. Vitamin D deficiency 12/01/2019 half-way current use of opiate analgesic 2018 Fasciculations [...] recent thyroid function studies were done at [facility] and this can be found in the [...] (05/08/2021): bilateral, Seen by Dr Sims at [facility] Assessment & Plan (09/28/2024 10:42 AM EST): [...] Description 04/01/2025 10:20 AM EDT Office Visit [facility] Internal Medicine [address] [place] [address] Dia Álvarez PA-C Pneumonia of both lower lobes due to infectious organism (Primary Dx); Generalized abdominal pain 03/30/2025 Orders Only [facility] Internal Medicine [address] [place] [address] Provider, MD Avelino 03/26/2025 11:20 AM EDT Office Visit [facility] Internal Medicine [address] [place] [address] Dia Álvarez PA-C Pneumonia of right lower lobe due to infectious organism (Primary Dx) 03/23/2025 2:27 PM EDT - 03/23/2025 11:59 PM EDT Hospital Encounter [facility], X-Ray - [address] [place] [address] Dia Álvarez PA-C Discharge Disposition: Home or Self Care 03/23/2025 1:00 PM EDT Office Visit [facility] Internal Medicine [address] [place] [address] Dia Álvarez PA-C Acute upper respiratory infection (Primary Dx); Thrush; Pneumonia of right middle lobe due to infectious organism; Pneumonia of right lower lobe due to infectious organism 03/23/2025 Telephone [facility] [address] [place] [address] Sabrina Talavera PA-C Results (After hours call); pneumonia 03/23/2025 Telephone [facility] Internal Medicine [address] [place] [address] Sergey Tyson MD Results 03/23/2025 Telephone [facility] Internal Medicine [address] [place] [address] Sergey Tyson MD Cough 03/18/2025 Telephone [facility] Internal [facility] [address] [place] [address] Sergey Tyson MD Speech Referral 03/18/2025 Internal [facility] [address] [place] [address] Sergey Tyson MD Referral (Gastroenterology) 02/11/2025 Refill [facility] Internal [facility] [address] [place] [address] Sergey Tyson MD Medication Refill 01/20/2025 Refill [facility] Internal Medicine [address] [place] [address] Sergey Tyson MD Medication Refill from Last 3 Months Immunizations Name Administration Dates Next Due COVID-19 (Pre-09/16) Pfizer Vaccine, mRNA, PF 02/21/2021,01/31/2021 COVID-19, Unspecified Formulation 11/07/2022 [id number] FORMULATION 10/07/2009 Influenza Quadrivalent MDCK Preservative Free [...] Contact Info) Description 03/18/2024 Procedure Pass [address] [address] 04/13/2025 9:00 AM EDT Appointment [facility] [place] Internal Medicine [address] [place] [address] Sergey Tyson MD [address] [place] [address] 04/21/2025 3:00 PM EDT Appointment [address] [address] Apple Talavera MD [address] [place] [address] 04/27/2025 8:30 AM EDT Office Visit [facility] at [address] [address] Apple Talavera MD [address] [place] [address] Health Maintenance Due Date Last Done Comments [...] this topic Medical Devices Implanted Type [employer] Police Officer Device Identifier Shelf Expiration Date Model / [...] EDT Routine general medical examination at a [facility] care facility from Last 3 Months or Most Recently Relevant to Health Maintenance Results * Outside US Abdomen Report Only (03/30/2025 12:37 PM EDT) Historical Provider MD BONDS US ABDOMEN * Outside XR??Chest Report Only (03/30/2025 11:37 AM EDT) Historical Provider MD BONDS XR CHEST * XR CHEST PA AND LATERAL 2 VIEWS (03/23/2025 2:51 PM EDT) [facility] IMG LABEL STAMPER 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 Follow-up to resolution advised. [facility] Anatomical Region Laterality Modality Chest Computed Radiogr [...] initiated on 03/23/2025 3:11 PM, Message ID [id number]. Narrative 03/23/2025 3:11 PM EDT XR CHEST PA AND LATERAL 2 VIEWS Referring clinician's provided indication for this examination in [facility]: Cough COMPARISON: None available FINDINGS: Devices/Tubes/Lines: [...] was initiated on 03/23/2025 3:11 PM,Message ID [id number]. Dia Álvarez PA-C IMG XR CHEST * POCT COVID-19 RT-PCR/Influenza A & B/RSV (Cepheid) (03/23/2025 1:10 PM EDT) RSV PCR Negative Negative [facility] SARS-CoV-2 (COVID-19) Negative Negative [facility] Influenza A PCR Negative Negative [facility] Influenza B PCR Negative Negative [facility] 03/23/2025 1:10 PM EDT 03/23/2025 1:51 PM EDT Dia Álvaerz PA-C POINT OF CARE TEST O RDERABLES [facility] [address] [place] [address], [facility] [phone] * (ABNORMAL) Comprehensive metabolic panel (10/30/2024 9:57 AM EST) SODIUM 140 133 - 146 mmol/L [facility] POTASSIUM 4.3 3.3 - 5.1 mmol/L [facility] CHLORIDE 104 96 - 108 mmol/L [facility] CO2 27 21 - 35 mmol/L [facility] BUN 23(H) 6 - 19 mg/dL [facility] CREATININE 0.90 0.5 - 1.5 mg/dL [facility] GLUCOSE 92 70 - 99 mg/dL [facility] ALBUMIN 4.3 3.9 - 4.8 g/dL [facility] TOTAL PROTEIN 6.9 6.5 - 8.0 g/dL [facility] CALCIUM 9.3 8.4 - 10.3 mg/dL [facility] ALKALINE PHOSPHATASE 91 39 - 117 U/L [facility] TOTAL BILIRUBIN 0.3 0.0 - 1.2 mg/dL [facility] AST 20 0 - 37 U/L [facility] ALT 9 0 - 40 U/L [facility] GLOBULIN 2.6 1 - 4.8 g/dL [facility] EGFR 67 >59 mL/min/1.7 3m2 [facility] Comment:Estimated glomerular filtration rate calculated using the CKD-EPI refit equation. ANION GAP 13 10 - 20 mmol/L [facility] Blood 10/30/2024 9:57 AM EST 10/30/2024 10:02 AM EST Rachael Alberts DUMP TRUCK DRIVER [address] LAB BLOOD ORDE AZUL [facility] [address] [place] [address] * TSH with reflex (09/28/2024 10:59 AM EST) TSH 0.91 0.27 - 4.20 uIU/mL [facility] Blood 09/28/2024 10:5 9 AM EST 09/28/2024 11:00 AM EST Sergey Tyson MD LAB BLOOD ORDERABLES Performing Organization Address [facility] Co de Phone Number [address] [address] * DXA Monitoring (05/02/2024 10:14 AM EDT) Anatomical Region Laterality Modality Bone Density Bone Density Sergey Tyson MD IMG BD BONE DENSITY DEXA * Fecal immunochemical test x1 (FIT) (03/04/2024 9:15 PM EDT) Pathologist [facility] Immuno Fecal Occult Negative Negative [facility] Stool (Stool) 03/04/2024 9:1 5 PM EDT 03/06/2024 10:00 AM EDT Adan Hoffman MD BODY FLUIDS AND ST OOLS ORDERABLES Performing Organization Address [facility] de Phone Number [address] [address] * ENDOSCOPY, COLON (09/13/2022 11:58 AM EDT) Narrative Transcriptions Adan Hoffman MD - 09/13/2022 11:58 AM EDT Patient Name: Kaylyn Alegria MD:: ADAN HOFFMAN MD Procedure Date: 09/13/2022 11:58AM Date of : 1950 Age: 72 Admit Type: Outpatient Gender: Female Room: [facility] 04 Referring MD: Sergey Tyson MD [...] 11:58 AM Procedure Code(s): --- Professional --- 70893, Colonoscopy, flexible; with removal of tumor(s), polyp(s), or other lesion(s) by snare technique 05028, 59, Colonoscopy, flexible; with biopsy, single or multiple --- Technical --- 87108, Colonoscopy, flexible; with removal of tumor(s), polyp(s), or other lesion(s) by snare technique 79319, 59, Colonoscopy, flexible; with biopsy, single or multiple Diagnosis Code(s): --- Professional --- K63.5, Polyp of colon Z86.010, Personal history of colonic polyps K64.9, Unspecified hemorrhoids Q43.8, Other specified congenital malformations of intestine --- Technical --- K63.5, Polyp of colon Z86.010, Personal history of colonic polyps K64.9, Unspecified hemorrhoids Q43.8, Other specified congenital malformations of intestine CPT copyright 2020 [employer]. All rights reserved. The codes documented in this report are preliminary and upon cheesemaking laborer reviewmay be revised to meet current compliance requirements. Procedure Date: 09/13/2022 11:58:[address] [place] [address] Sergey Tyson MD GI PROCEDURE ORDERAB LES * Hepatitis C antibody, qualitative (05/11/2021 9:13 AM EDT) HCV NON-REACTIV E NON-REACTI VE [facility] Blood 05/11/2021 9:13 AM EDT 05/11/2021 9:19 AM EDT Adan Lyons MD LAB BLOOD ORDERABL ES [address] [address] * (ABNORMAL) Lipid panel (05/11/2021 9:13 AM EDT) HDL 68 mg/dL [facility] Comment: ? Interpretation <40 mg/dL: Low HDL cholesterol (major risk factor for CHD) Greater than or equal to 60 mg/dL: High HDL cholesterol ( negative risk factor for CHD) HDL - cholesterol is affected by a number of factors, e.g. smoking, excerise, hormones, sex and age. CHOLESTEROL 217 0 - 240 mg/dL [facility] TRIGLYCERIDES 113 30 - 160 mg/dL [facility] LDL 126 50 - 129 mg/dL [facility] Comment: LDL levels in terms of risk for coronary heart disease: <100 mg/dL: Optimal 100-129 mg/dL: Near or above optimal 130-159 mg/dL: Borderline high 160-189 mg/dL: High >190 mg/dL: Very High CARDIAC RISK RATIO 3.2(L) 3.3 - 4.4 C [facility] Blood 05/11/2021 9:13 AM EDT 05/11/2021 9:19 AM EDT Adan Lyons MD LAB BLOOD ORDERABL ES [address] [address] from Last 3 Months or Most Recently Relevant to Health Maintenance Care Teams Heel Trimmer Relationship Specialty Start Date End Date Sergey Tyson MD [address] [place], [place] [email or web address] PCP - General Internal Medicine 05/10/22 Omar Rocha MD [email or web address] Physical Medicine and Rehabilitation 05/08/21 Sagar Leung MD [address] [place] [address] [email or web address] Obstetrics and Gynecology 05/08/21 Yefri [place] MD [address] [place] [address] Endocrinology 05/08/21 Adan [place] MD [address] [place] [address] Gastroenterology 02/27/22 Apple Talavera MD [address] [place] [address] Primary Oncologist Medical Oncology 02/19/23 Sergey Tyson MD [address] [place] [address] [email or web address] Insurance Assigned Provider 02/29/24 Additional Source Comments The information contained in this document represents components of the legal health record. It is not the complete legal health record.[facility]
--- OUTSIDE RECORDS SUMMARY | 2025-04-02 12:18 | XMS_ITS | Encounter Summary ---
Author Organization [facility] Address [facility] [email or web address] [facility] [address] [place] [address] Phone Care Team Providers Care Trimmer Sorter Name Role Phone Karlos Lyons MD Unavailable Omar Rocha MD Unavailable Sagar Leung MD Unavailable Karlos Lyons MD Primary Care Provider Yefri [place] MD Unavailable [phone] Karlos Murry MD Unavailable [phone] Sergey Tyson MD Primary Care Provider Apple Talavera MD Unavailable [phone] Sergey Tyson MD Unavailable Mena Mcwilliams RN Unavailable [phone] Encounter Details Date Type Department Care Team (Late st Contact Info) Description 10/25/2021 Procedure Pass [address] [address] Social History Tobacco Use Types Packs/Day Years [...] Contact Info) Description 03/18/2024 Procedure Pass [address] [address] 04/13/2025 9:00 AM EDT Appointment [facility] Medical [facility] Internal Medicine [address] [place] [address] Sergey Tyson MD [address] [place] [address] 04/21/2025 3:00 PM EDT Appointment [address] [address] Apple Talavera MD [address] [place] [address] 04/27/2025 8:30 AM EDT Office Visit [facility] at [address] [address] Apple Talavera MD [address] [place] [address] documented as of this encounter Visit Diagnoses Not on filedocumented in this encounter Additional Health Concerns Infection Onset Date Last Indicated Resolved Time CoV-Risk 05/07/2022 05/07/2022 05/18/2022 1:24 AM EDT Assessment Noted Time PHQ-2 Depression Total Score: 0 05/05/20 9:23 PM EDT documented as of this encounter Care Teams Trimmer Sorter Relationship Specialty Start Date End Date Karlos Lyons MD [address] [address] [email or web address] PCP - General Internal Medicine 05/08/21 05/09/22 Sergey Tyson MD [address] [place] [address] [email or web address] PCP - General Internal Medicine 05/10/22 Karlos Lyons MD [address] [place] [address] [email or web address] Insurance Assigned Provider 02/23/17 03/02/23 Oamr Rocha MD [address] [place] [address] [email or web address] and [email or web address] 05/08/21 Sagar Leung MD [address] [place] [address] [email or web address] Obstetrics and Gynecology 05/08/21 Yefri [place] MD [address] [place] [address] Endocrinology 05/08/21 Karlos Murry MD [address] [place] [address] [email or web address] Gastroenterology 02/27/22 Apple Talavera MD [address] [place] [address] [email or web address] Primary Oncologist Medical Oncology 02/19/23 Sergey Tyson MD [address] [place] [address] [email or web address] Insurance Assigned Provider 02/29/24 Mena Mcwilliams RN [address] [place] [address] [email or web address] [employer] Lead Project Engineer 11/13/23 12/11/23 documented as of this encounter Additional Source Comments The information contained in this document represents components of the legal health record. It is not the complete legal health record.[facility]
--- OUTSIDE RECORDS SUMMARY | 2025-04-02 12:18 | XMS_ITS | Encounter Summary ---
Author Organization [facility] Address [facility] [employer] [facility] [address] [place] [address] Phone Care Team Providers Care Pre Sales Systems Engineer Name Role Phone Omar Rocha MD Unavailable Sagar Leung MD Unavailable Yefri Hilliard MD Unavailable Karlos Murry MD Unavailable [phone] Sergey Tyson MD Primary Care Provider Apple Talavera MD Unavailable [phone] Sergey Tyson MD Unavailable Encounter Details Date Type Department Care Team (Late st Contact Info) Description 10/30/2024 Procedure Pass [facility], Ct Scan - [address] [address] Social History Tobacco Use Types Packs/Day Years [...] high school, GED, job training, learning the Malaysian language, technical skills, or developing parenting skills)? [...] st Contact Info) Description 03/18/2024 Procedure Pass [address] [address] 04/13/2025 9:00 AM EDT Appointment [facility] Internal Medicine [address] [place] [address] Sergey Tyson MD [address] [place] [address] 04/21/2025 3:00 PM EDT Appointment [address] [address] Apple Talavera MD [address] [place] [address] [email or web address] 04/27/2025 8:30 AM EDT Office Visit [facility] at [address] [address] Apple Talavera MD [address] [place] [address] documented as of this encounter Visit Diagnoses Not on filedocumented in this encounter Additional Health Concerns Assessment Noted Time PHQ-9 Depression Total Score: 3 09/11/20 9:24 AM EDT PHQ-2 Depression Total Score: 1 09/11/20 9:24 AM EDT documented as of this encounter Care Teams Pre Sales Systems Engineer Relationship Specialty Start Date End Date Sergey Tyson MD [address] [place] [address] PCP - General Internal Medicine 05/10/22 Omar Rocha MD [email or web address] Physical Medicine and Rehabilitation 05/08/21 Sagar Leung MD [address] [place] [address] [address] [place] [address] Obstetrics and Gynecology 05/08/21 Yefri Hilliard MD [address] [place] [address] Endocrinology 05/08/21 Karlos Murry MD [address] [place] [address] [phone] Gastroenterology 02/27/22 Apple Talavear MD [address] [place] [address] Primary Oncologist Medical Oncology 02/19/23 Sergey Tyson MD [address] [place] [address] [email or web address] Insurance Assigned Provider 02/29/24 documented as of this encounter Additional Source Comments The information contained in this document represents components of the legal health record. It is not the complete legal health record.[facility]
--- OUTSIDE RECORDS SUMMARY | 2025-04-02 12:18 | XMS_ITS | Encounter Summary ---
Author Organization [facility] Address [facility] [employer] [facility] [address] [place] [address] Phone Care Team Providers Care Human Resources Technician Name Role Phone Omar Rocha MD Unavailable Sagar Leung MD Unavailable Yefri Hilliard MD Unavailable [phone] Karlos Murry MD Unavailable [phone] Sergey Tyson MD Primary Care Provider Apple Talavera MD Unavailable Sergey Tyson MD Unavailable Encounter Details Date Type Department Care Team (Latest Contact Info) Description 12/27/2023 Transcribe Orders Virtual Department 30 [place] [address] Karlos Murry MD 10 [place], [place] [phone] [email or web address] Weight loss (Primary Dx) Social History Tobacco [...] high school, GED, job training, learning the Taiwanese language, technical skills, or developing parenting skills)? [...] st Contact Info) Description 03/18/2024 Procedure Pass [address] [address] 04/13/2025 9:00 AM EDT Appointment [facility] Internal Medicine [address] [place] [address] Sergey Tyson MD 40 [place] [address] 04/21/2025 3:00 PM EDT Appointment [facility] [place] [facility]- [address] [address] Apple Talavera MD [address] [place] [address] 04/27/2025 8:30 AM EDT Office Visit [facility] at [address] [address] Apple Talavera MD [address] [place] [address] documented as of this encounter Visit Diagnoses Diagnosis Weight loss- Primary Loss of weight documented in this encounter Additional Health Concerns Assessment Noted Time PHQ-2 Depression Total Score: 0 01/28/20 23 6:26 PM EST documented as of this encounter Care Teams Human Resources Technician Relationship Specialty Start Date End Date Sergey Tyson MD [address] [place] [address] PCP - General Internal Medicine 05/10/22 Omar Rocha MD [email or web address] Physical Medicine and Rehabilitation 05/08/21 Sagar Leung MD [address] [facility], [address] [place] [address] [email or web address] Obstetrics and Gynecology 05/08/21 Yefri Hilliard MD 55 [place] [address] Endocrinology 05/08/21 Karlos Murry MD [address] [place] [address] [email or web address] Gastroenterology 02/27/22 pAple Talavera MD [address] [place] [address] [email or web address] Primary Oncologist Medical Oncology 02/19/23 Sergey Tyson MD [address] [place] [address] [email or web address] Insurance Assigned Provider 02/29/24 documented as of this encounter Additional Source Comments The information contained in this document represents components of the legal health record. It is not the complete legal health record.[facility]
--- OUTSIDE RECORDS SUMMARY | 2025-04-02 12:18 | XMS_ITS | Encounter Summary ---
Author Organization [facility] Address [facility] [employer] [facility] [address] [place] [address] Phone Care Team Providers Care Order Takers Supervisor Name Role Phone Karlos Lyons MD Unavailable Omar Rocha MD Unavailable Sagar Leung MD Unavailable Karlos Lyons MD Primary Care Provider [phone] Yefri Hilliard MD Unavailable [phone] Karlos Murry MD Unavailable [phone] Sergey Tyson MD Primary Care Provider Apple Talavera MD Unavailable Sergey Tyson MD Unavailable Mena Mcwilliams RN Unavailable [phone] Encounter Details Date Type Department Care Team (Latest Contact Info) Description 11/13/2021 Transcribe Orders Virtual Department 30 [place], [place] [phone] Omar Rocha MD [address] [place] [address] [email or web address] Right foot pain (Primary Dx) Social History [...] Contact Info) Description 03/18/2024 Procedure Pass [address] [address] 04/13/2025 9:00 AM EDT Appointment [facility] Internal Medicine 40 [place] [address] Sergey Tyson MD [address] [place] [address] 04/21/2025 3:00 PM EDT Appointment [address] [address] Apple Talavera MD [address] [place] [address] 04/27/2025 8:30 AM EDT Office Visit [facility] Center at [address] [address] Apple Talavera MD [address] [place] [address] [phone] documented as of this encounter Results * [...] documented as of this encounter Care Teams Order Takers Supervisor Relationship Specialty Start Date End Date Karlos Lyons MD [address] [address] [email or web address] PCP - General Internal Medicine 05/08/21 05/09/22 Sergey Tyson MD [address] [place] [address] [email or web address] PCP - General Internal Medicine 05/10/22 Karlos Lyons MD [address] [place] [address] [email or web address] Insurance Assigned Provider 02/23/17 03/02/23 Omar Rocha MD [address] [place] [address] [email or web address] Physical Medicine and Rehabilitation 05/08/21 Sagar Leung MD [address] [place] [address] [email or web address] Obstetrics and Gynecology 05/08/21 Yefri Hilliard MD [address] [place] [address] Endocrinology 05/08/21 Karlos Murry MD [address] [place] [address] [email or web address] Gastroenterology 02/27/22 Apple Talavera MD 30 [place] [address] [email or web address] Primary Oncologist Medical Oncology 02/19/23 Sergey Tyson MD [address] [place] [address] [email or web address] Insurance Assigned Provider 02/29/24 Mena Mcwilliams, RN [address] [place] [address] [email or web address] [employer] Airfield Engineer Officer 11/13/23 12/11/23 documented as of this encounter Additional Source Comments The information contained in this document represents components of the legal health record. It is not the complete legal health record.[facility]
--- OUTSIDE RECORDS SUMMARY | 2025-04-02 12:18 | XMS_ITS | Encounter Summary ---
Author Organization [facility] Address [address] [place] [address] [address] [place] [address] Phone Care Team Providers Care Water Conservation Specialist Name Role Phone Karlos Lyons MD Primary Care Provider Karlos Lyons MD Unavailable [phone] Omar Rocha MD Unavailable [phone] Sagar Leung MD Unavailable Karlos Lyons MD Primary Care Provider [phone] Yefri Hilliard MD Unavailable [phone] Karlos Murry MD Unavailable [phone] Sergey Tyson MD Primary Care Provider [phone] Apple Talavera MD Unavailable [phone] Sergey Tyson MD Unavailable Mena Mcwilliams RN Unavailable [phone] Encounter Details Date Type Department Care Team (Latest Contact Info) Description 01/27/2018 Prep for Procedure [facility] [place] [address] [place] [address] [phone] Apple Talavera MD [address] [place] [address] Malignant neoplasm of overlapping sites of left [...] Contact Info) Description 03/18/2024 Procedure Pass [address] [address] 04/13/2025 9:00 AM EDT Appointment [facility] Internal Medicine [address] [place] [address] Sergey Tyson MD [address] [place] [address] [email or web address] 04/21/2025 3:00 PM EDT Appointment [address] [address] Apple Talavera MD [address] [place] [address] 04/27/2025 8:30 AM EDT Office Visit [facility] General Cancer Center at [address] [address] Apple Talavera MD [address] [place] [address] documented as of this encounter Visit Diagnoses Diagnosis Malignant neoplasm of overlapping sites of left breast in female, estrogen receptor positive documented in this encounter Additional Health Concerns Infection Onset Date Last Indicated Resolved Time CoV-Risk 05/07/2022 05/07/2022 05/18/2022 1:24 AM EDT documented as of this encounter Care Teams Water Conservation Specialist Relationship Specialty Start Date End Date Karlos Lyons MD [address] [address] [email or web address] PCP - General Internal Medicine 07/14/14 05/07/21 Karlos Lyons MD [address] [place] [address] [email or web address] PCP - General Internal Medicine 05/08/21 05/09/22 Sergey Tyson MD [address] [place] [address] [email or web address] PCP - General Internal Medicine 05/10/22 Karlos Lyons MD [address] [place] [address] [email or web address] Insurance Assigned Provider 02/23/17 03/02/23 Omar Rocha MD [address] [place] [address] [email or web address] Physical Medicine and Rehabilitation 05/08/21 Sagar Leung MD 22 [facility], [address] [place] [address] [email or web address] Obstetrics and Gynecology 05/08/21 Yefri Hilliard MD [address] [place] [address] Endocrinology 05/08/21 Karlos Murry MD [address] [place] [address] [email or web address] Gastroenterology 02/27/22 Apple Talavera MD [address] [place] [address] [email or web address] Primary Oncologist Medical Oncology 02/19/23 Sergey Tyson MD [address] [place] [address] [email or web address] Insurance Assigned Provider 02/29/24 Mena Mcwilliams, RUSS [address] [place] [address] [email or web address] iC[employer] Pump Operator [employer] 11/13/23 12/11/23 documented as of this encounter Additional Source Comments The information contained in this document represents components of the legal health record. It is not the complete legal health record.[facility]
--- OUTSIDE RECORDS SUMMARY | 2025-04-02 12:18 | XMS_ITS | Encounter Summary ---
Author Organization [facility] Address [facility] [address] [place] [address] Phone Care Team Providers Care Thresher Broomcorn Name Role Phone Karlos Lyons MD Unavailable Omar Rocha MD Unavailable [phone] Sagar Leung MD Unavailable Karlos Lyons MD Primary Care Provider [phone] Yefri Hilliard MD Unavailable Karlos Murry MD Unavailable [phone] Sergey Tyson MD Primary Care Provider Apple Talavera MD Unavailable [phone] Sergey Tyson MD Unavailable Mena Mcwilliams RN Unavailable [phone] Encounter Details Date Type Department Care Team (Late st Contact Info) Description 01/23/2022 Procedure Pass [facility] Admitting Dept Virtual Department 30 [place] [address] Social History Tobacco Use Types Packs/Day Years [...] st Contact Info) Description 03/18/2024 Procedure Pass [address] [address] 04/13/2025 9:00 AM EDT Appointment [facility] Internal Medicine [address] [place] [address] Sergey Tyson MD 40 [place] [address] 04/21/2025 3:00 PM EDT Appointment [address] [address] Apple Talavera MD [address] [place] [address] [email or web address] 04/27/2025 8:30 AM EDT Office Visit [facility] Cancer Center at [address] [address] Apple Talavera MD [address] [place] [address] documented as of this encounter Visit Diagnoses Not on filedocumented in this encounter Additional Health Concerns Infection Onset Date Last Indicated Resolved Time CoV-Risk 05/07/2022 05/07/2022 05/18/2022 1:24 AM EDT Assessment Noted Time PHQ-2 Depression Total Score: 0 05/05/20 21 9:23 PM EDT documented as of this encounter Care Teams Thresher Broomcorn Relationship Specialty Start Date End Date Karlos Lyons MD [address] [address] [email or web address] PCP - General Internal Medicine 05/08/21 05/09/22 Sergey Tyson MD [address] [place] [address] [email or web address] PCP - General Internal Medicine 05/10/22 Karlos Lyons MD [address] [address] [email or web address] Insurance Assigned Provider 02/23/17 03/02/23 Omar Rocha MD [address] [place] [address] [email or web address] Physical Medicine and Rehabilitation 05/08/21 Sagar Leung MD [address] [place] [address] [email or web address] Obstetrics and Gynecology 05/08/21 Yefri Hilliard MD [address] [place] [address] Endocrinology 05/08/21 Karlos Murry MD [address] [place] [address] [email or web address] Gastroenterology 02/27/22 Apple Talavera MD [address] [place] [address] [email or web address] Primary Oncologist Medical Oncology 02/19/23 Sergey Tyson MD [address] [place] [address] [email or web address] Insurance Assigned Provider 02/29/24 Mena Mcwilliams, RN [address] [place] [address] [email or web address] iCMP Refractive Surgeon 11/13/23 12/11/23 documented as of this encounter Additional Source Comments The information contained in this document represents components of the legal health record. It is not the complete legal health record.[facility]
--- OUTSIDE RECORDS SUMMARY | 2025-04-02 12:18 | XMS_ITS | Encounter Summary ---
Author Organization [facility] Address [address] [place] [address] [address] [place] [address] Phone Care Team Providers Care Foam Fabricator Name Role Phone Karlos Lyons MD Primary Care Provider Karlos Lyons MD Unavailable [phone] Omar Rocha MD Unavailable [phone] Sagar Leung MD Unavailable Karlos Lyons MD Primary Care Provider [phone] Yefri Hilliard MD Unavailable [phone] Karlos Murry MD Unavailable [phone] Sergey Tyson MD Primary Care Provider [phone] Apple Talavera MD Unavailable [phone] Sergey Tyson MD Unavailable Mena Mcwilliams RN Unavailable [phone] Reason for Referral * MRI/CAT Scan - Closed Specialty Diagnoses / Procedures Referred By Jessica balbuena Referred To Contact Radiology Diagnoses Lumbar radiculopathy 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 Procedures MRI Lumbar Spine Omar Rocha MD [address] [place] [address] Email: [email or web address] Referral ID Status Reason Start Date Expiration Date Visits Re quested Visits Authorized [id number] Closed 10/07/2019 10/06/2020 1 1 Encounter Details Date Type Department Care Team (Latest Contact Info) Description 10/07/2019 Ancillary Orders Virtual Department [address] [place] [address] Omar Rocha MD [address] [place] [address] [email or web address] Lumbar radiculopathy; Displacement of intervertebral disc of [...] Contact Info) Description 03/18/2024 Procedure Pass [address] [address] 04/13/2025 9:00 AM EDT Appointment [facility] [place] Internal Medicine [address] [place] [address] Sergey Tyson MD 40 [place] [address] 04/21/2025 3:00 PM EDT Appointment [address] [address] Apple Talavera MD [address] [place] [email or web address] 04/27/2025 8:30 AM EDT Office Visit [facility] [place] [address] [place] [address] Apple Talavera MD [address] [place] [address] [email or web address] documented as of this encounter Results * [...] renal lesions that appear similar in size [id number]. Posterior paraspinal soft tissues are unremarkable. IMPRESSION: Multilevel degenerative changes as described above, progressed from 2009study. Moderate canal stenosis at L3-L4. Moderate neuroforaminal stenosison the left at L4-L5 associated with mild compression of the left [id number] nerve root. POS - [id number] Omar Rocha [...] documented as of this encounter Care Teams Foam Fabricator Relationship Specialty Start Date End Date Karlos Lyons MD [address] [address] [email or web address] PCP - General Internal Medicine 07/14/14 05/07/21 Karlos Lyons MD [address] [address] [email or web address] PCP - General Internal Medicine 05/08/21 05/09/22 Sergey Tyson MD [address] [place] [address] [email or web address] PCP - General Internal Medicine 05/10/22 Karlos Lyons MD [address] [place] [address] [email or web address] Insurance Assigned Provider 02/23/17 03/02/23 Omar Rocha MD [address] [place] [address] [email or web address] Physical Medicine and Rehabilitation 05/08/21 Sagar Leung MD [address] [place] [address] [email or web address] Obstetrics and Gynecology 05/08/21 Yefri Hilliard MD [address] [place] [address] Endocrinology 05/08/21 Karlos Murry MD [address] [place] [address] [email or web address] Gastroenterology 02/27/22 Apple Talavera MD [address] [place] [address] [email or web address] Primary Oncologist Medical Oncology 02/19/23 Sergey Tyson MD [address] [place] [address] [email or web address] Insurance Assigned Provider 02/29/24 Mena Mcwilliams RN [address] [place] [address] [email or web address] iCMP Beading Installer 11/13/23 12/11/23 documented as of this encounter Additional Source Comments The information contained in this document represents components of the legal health record. It is not the complete legal health record.[facility]
--- OUTSIDE RECORDS SUMMARY | 2025-04-02 12:18 | XMS_ITS | Encounter Summary ---
Author Organization [facility] Address [facility] [address] [place] [address] Phone Care Team Providers Care Insurance Account Manager Name Role Phone Karlos Lyons MD Unavailable [phone] Omar Rocha MD Unavailable Sagar Leung MD Unavailable Yefri Hilliard MD Unavailable Karlos Murry MD Unavailable [phone] Sergey Tyson MD Primary Care Provider Apple Talavera MD Unavailable [phone] Sergey Tyson MD Unavailable Mena Mcwilliams RN Unavailable [phone] Encounter Details Date Type Department Care Team (Late st Contact Info) Description 02/27/2023 Procedure Pass [facility], [facility] [address] [place] [address] Social History Tobacco Use Types Packs/Day Years [...] high school, GED, job training, learning the Japanese language, technical skills, or developing parenting skills)? [...] st Contact Info) Description 03/18/2024 Procedure Pass [address] [address] 04/13/2025 9:00 AM EDT Appointment [facility] Internal Medicine [address] [place] [address] Sergey Tyson MD [address] [place] [address] [email or web address] 04/21/2025 3:00 PM EDT Appointment [facility], [address] [address] Apple Talavera MD [address] [place] [address] [email or web address] 04/27/2025 8:30 AM EDT Office Visit [facility] at [address] [address] Apple Talavera MD [address] [place] [address] [email or web address] documented as of this encounter Visit Diagnoses Not on filedocumented in this encounter Additional Health Concerns Assessment Noted Time PHQ-2 Depression Total Score: 0 01/28/20 23 6:26 PM EST documented as of this encounter Care Teams Insurance Account Manager Relationship Specialty Start Date End Date Sergey Tyson MD [address] [place] [address] [email or web address] PCP - General Internal Medicine 05/10/22 Karlos Lyons MD [address] [place] [address] [email or web address] Insurance Assigned Provider 02/23/17 03/02/23 Omar Rocha MD [address] [place] [address] [email or web address] Medicine [email or web address] 05/08/21 Sagar Leung MD [address] [place] [address], [address] [place] [address] Obstetrics and Gynecology 05/08/21 Yefri Hilliard MD [address] [place] [address] Endocrinology 05/08/21 Karlos Murry MD [address] [place] [address] [email or web address] Gastroenterology 02/27/22 Apple Talavera MD [address] [place] [address] [email or web address] Primary Oncologist Medical Oncology 02/19/23 Sergey Tyson MD [address] [place] [address] [email or web address] Insurance Assigned Provider 02/29/24 Mena Mcwilliams, RN [address] [place] [address] [id number] [email or web address] iCMP Aircraft Shipping Checker 11/13/23 12/11/23 documented as of this encounter Additional Source Comments The information contained in this document represents components of the legal health record. It is not the complete legal health record.[facility]
--- OUTSIDE RECORDS SUMMARY | 2025-04-02 12:18 | XMS_ITS | Encounter Summary ---
Author Organization [facility] Address [facility] [employer] [facility] [address] [place] [address] Phone Care Team Providers Care Mail List Librarian Name Role Phone Omar Rocha MD Unavailable [phone] Sagar Leung MD Unavailable Yefri Hilliard MD Unavailable Karlos Murry MD Unavailable Sergey Tyson MD Primary Care Provider Apple Talavera MD Unavailable Sergey Tyson MD Unavailable Encounter Details Date Type Department Care Team (Latest Contact Info) Description 12/23/2024 Transcribe Orders Virtual Department 30 [place] [address] Omar Rocha MD [address] [place] [address] Left hip pain (Primary Dx) Social History [...] high school, GED, job training, learning the Swiss language, technical skills, or developing parenting skills)? [...] st Contact Info) Description 03/18/2024 Procedure Pass [address] [address] 04/13/2025 9:00 AM EDT Appointment [facility] Internal Medicine 40 [place] [address] Sergey Tyson MD 40 [place] [address] 04/21/2025 3:00 PM EDT Appointment [address] [address] Apple Talavera MD [address] [place] [email or web address] 04/27/2025 8:30 AM EDT Office Visit [facility] at [address] [address] Apple Talavera MD [address] [place] [address] documented as of this encounter Results * [...] documented as of this encounter Care Teams Mail List Librarian Relationship Specialty Start Date End Date Sergey Tyson MD 40 [place] [address] PCP - General Internal Medicine 05/10/22 Omar Rocha MD [email or web address] Medicine and [email or web address] 05/08/21 Sagar Leung MD 22 [facility], [facility] [address] [place] [address] Obstetrics and Gynecology 05/08/21 Yefri Hilliard MD [address] [place] [address] Endocrinology 05/08/21 Karlos Murry MD [address] [place] [address] [email or web address] Gastroenterology 02/27/22 Apple Talavera MD [address] [place] [address] Primary Oncologist Medical Oncology 02/19/23 Sergey Tyson MD [address] [place] [address] [email or web address] Insurance Assigned Provider 02/29/24 documented as of this encounter Additional Source Comments The information contained in this document represents components of the legal health record. It is not the complete legal health record.[facility]
--- OUTSIDE RECORDS SUMMARY | 2025-04-02 12:18 | XMS_ITS | Encounter Summary ---
Author Organization [facility] Address [address] [place] [address] [address] [place] [address] Phone Care Team Providers Care Electronic Assembler Name Role Phone Omar Rocha MD Unavailable [phone] Sagar Leung MD Unavailable Yefri Hilliard MD Unavailable Karlos Murry MD Unavailable [phone] Sergey Tyson MD Primary Care Provider Apple Talavera MD Unavailable Sergey Tyson MD Unavailable Reason for Referral * Outpatient Procedure - Closed Specialty Diagnoses / Procedures Referred By Jessica balbuena Referred To Contact Radiology Diagnoses Weight loss Procedures US Abdomen Arteries Duplex Limited Karlos Murry MD 10 [place] [address] Email: Referral ID Status Reason Start Date Expiration Date Visits Re quested Visits Authorized [id number] Closed 02/03/2024 1 1 Encounter Details Date Type Department Care Team (Latest Contact Info) Description 02/03/2024 Transcribe Orders Virtual Department 30 [place] [address] Karlos Murry MD [address] [place] [address] Weight loss (Primary Dx) Social History Tobacco [...] high school, GED, job training, learning the Bruneian language, technical skills, or developing parenting skills)? [...] st Contact Info) Description 03/18/2024 Procedure Pass [address] [address] 04/13/2025 9:00 AM EDT Appointment [facility] Internal Medicine [address] [place] [address] Sergey Tyson MD 40 [place] [address] 04/21/2025 3:00 PM EDT Appointment [address] [address] Apple Talavera MD [address] [place] [email or web address] 04/27/2025 8:30 AM EDT Office Visit [facility] at [address] [address] Apple Talavera MD [address] [place] [address] documented as of this encounter Results * [...] documented as of this encounter Care Teams Electronic Assembler Relationship Specialty Start Date End Date Sergey Tyson MD [address] [place] [address] PCP - General Internal Medicine 05/10/22 Omar Rocha MD [email or web address] Physical Medicine and Rehabilitation 05/08/21 Sagar Leung MD [address] [place] [address], [address] [place] [address] [email or web address] Obstetrics and Gynecology 05/08/21 Yefri Hilliard MD [address] [place] [address] Endocrinology 05/08/21 Karlos Murry MD [address] [place] [address] [email or web address] Gastroenterology 02/27/22 Apple Talavera MD [address] [place] [address] Primary Oncologist Medical Oncology 02/19/23 Sergey Tyson MD [address] [place] [address] [email or web address] Insurance Assigned Provider 02/29/24 documented as of this encounter Additional Source Comments The information contained in this document represents components of the legal health record. It is not the complete legal health record.[facility]
--- OUTSIDE RECORDS SUMMARY | 2025-04-02 12:18 | XMS_ITS | Encounter Summary ---
Author Organization [facility] Address [address] [place] [address] [address] [place] [address] Phone Care Team Providers Care Hand Roller Engraver Name Role Phone Karlos Lyons MD Primary Care Provider Karlos Lyons MD Unavailable [phone] Omar Rocha MD Unavailable [phone] Sagar Leung MD Unavailable Karlos Lyons MD Primary Care Provider [phone] Yefri Hilliard MD Unavailable [phone] Karlos Murry MD Unavailable [phone] Sergey Tyson MD Primary Care Provider Apple Talavera MD Unavailable [phone] Sergey Tyson MD Unavailable Mena Mcwilliams RN Unavailable [phone] Encounter Details Date Type Department Care Team (Late st Contact Info) Description 04/20/2021 Procedure Pass [facility] Admitting Dept Virtual Department 30 [place] [address] Social History Tobacco Use Types [...] st Contact Info) Description 03/18/2024 Procedure Pass [address] [address] 04/13/2025 9:00 AM EDT Appointment [facility] Internal Medicine [address] [place] [address] Sergey Tyson MD [address] [place] [address] 04/21/2025 3:00 PM EDT Appointment [address] [address] Apple Talavera MD [address] [place] [address] 04/27/2025 8:30 AM EDT Office Visit [facility] at [address] [address] Apple Talavera MD [address] [place] [address] documented as of this encounter Visit Diagnoses Not on filedocumented in this encounter Additional Health Concerns Infection Onset Date Last Indicated Resolved Time CoV-Risk 05/07/2022 05/07/2022 05/18/2022 1:24 AM EDT Assessment Noted Time PHQ-2 Depression Total Score: 0 04/28/20 12:48 PM EDT documented as of this encounter Care Teams Hand Roller Engraver Relationship Specialty Start Date End Date Karlos Lyons MD [address] [address] [email or web address] PCP - General Internal Medicine 07/14/14 05/07/21 Karlos Lyons MD [address] [place] [address] [email or web address] PCP - General Internal Medicine 05/08/21 05/09/22 Sergey Tyson MD [address] [place] [address] [email or web address] PCP - General Internal Medicine 05/10/22 Karlos Lyons MD [address] [place] [address] [email or web address] Insurance Assigned Provider 02/23/17 03/02/23 Omar Rocha MD [address] [place] [address] [email or web address] Physical Medicine and Rehabilitation 05/08/21 Sagar Leung MD [address] [place] [address], [address] [place] [address] [email or web address] Obstetrics and Gynecology 05/08/21 Yefri Hilliard MD [address] [place] [address] Endocrinology 05/08/21 Karlos Murry MD [address] [place] [address] [email or web address] Gastroenterology 02/27/22 Apple Talavera MD [address] [place] [address] [email or web address] Primary Oncologist Medical Oncology 02/19/23 Sergey Tyson MD [address] [place] [address] [email or web address] Insurance Assigned Provider 02/29/24 Mena Mcwilliams, RN [address] [place] [address] [email or web address] iCMP Optical Glass Etcher 11/13/23 12/11/23 documented as of this encounter Additional Source Comments The information contained in this document represents components of the legal health record. It is not the complete legal health record.[facility]
--- OUTSIDE RECORDS SUMMARY | 2025-04-02 12:18 | XMS_ITS | Encounter Summary ---
Author Organization [facility] Address [facility] [address] [place] [address] Phone Care Team Providers Care Silverer Name Role Phone Karlos Lyons MD Unavailable Omar Rocha MD Unavailable Sagar Leung MD Unavailable Yefri Hilliard MD Unavailable Karlos Murry MD Unavailable [phone] Sergey Tyson MD Primary Care Provider [phone] Apple Talavera MD Unavailable [phone] Sergey Tyson MD Unavailable Mena Mcwilliams RN Unavailable [phone] Encounter Details Date Type Department Care Team (Late st Contact Info) Description 05/31/2022 Procedure Pass [place] Admitting Dept - Virtual Department 30 [place] [address] Social History Tobacco Use Types Packs/Day Years [...] Contact Info) Description 03/18/2024 Procedure Pass [address] [address] 04/13/2025 9:00 AM EDT Appointment [facility] Internal Medicine 40 [place] [address] Sergey Tyson MD 40 [place] [address] 04/21/2025 3:00 PM EDT Appointment [place] [address] [place] [address] Apple Talavera MD [address] [place] [address] [email or web address] 04/27/2025 8:30 AM EDT Office Visit [facility] at [address] [address] Apple Talavera MD [address] [place] [address] [email or web address] documented as of this encounter Visit Diagnoses Not on filedocumented in this encounter Additional Health Concerns Assessment Noted Time PHQ-2 Depression Total Score: 2 05/05/20 22 10:17 AM EDT documented as of this encounter Care Teams Silverer Relationship Specialty Start Date End Date Sergey Tyson MD [address] [place] [address] [email or web address] PCP - General Internal Medicine 05/10/22 Karlos Lyons MD [address] [place] [address] [email or web address] Insurance Assigned Provider 02/23/17 03/02/23 Omar Rocha MD [address] [place] [address] [email or web address] Physical Medicine and Rehabilitation 05/08/21 Sagar Leung MD 22 [facility], [address] [place] [address] [email or web address] Obstetrics and Gynecology 05/08/21 Yefri Hilliard MD 55 [place] [address] Endocrinology 05/08/21 Karlos Murry MD [address] [place] [address] [email or web address] Gastroenterology 02/27/22 Apple Talavera MD [address] [place] [email or web address] Primary Oncologist Medical Oncology 02/19/23 Sergey Tyson MD [address] [place] [address] [email or web address] Insurance Assigned Provider 02/29/24 Mena Mcwilliams, RN [address] [place] [address] [email or web address] iCMP Er Nurse 11/13/23 12/11/23 documented as of this encounter Additional Source Comments The information contained in this document represents components of the legal health record. It is not the complete legal health record.[facility]
--- OUTSIDE RECORDS SUMMARY | 2025-04-02 12:18 | XMS_ITS | Encounter Summary ---
Author Organization [facility] Address [facility] [employer] [facility] [address] [place] [address] Phone Care Team Providers Care Slitter Creaser Slotter Operator Name Role Phone Karlos Loyns MD Unavailable Omar Rocha MD Unavailable Sagar Leung MD Unavailable Karlos Lyons MD Primary Care Provider Yefri Hilliard MD Unavailable Karlos Murry MD Unavailable [phone] Sergey Tyson MD Primary Care Provider Apple Talavera MD Unavailable [phone] Sergey Tyson MD Unavailable Mena Mcwilliams RN Unavailable [phone] Encounter Details Date Type Department Care Team (Late st Contact Info) Description 02/22/2022 Procedure Pass [facility], [address] [address] Social History Tobacco Use Types Packs/Day Years [...] st Contact Info) Description 03/18/2024 Procedure Pass [address] [address] 04/13/2025 9:00 AM EDT Appointment [facility] Internal Medicine [address] [place] [address] Sergey Tyson MD 40 [place] [address] 04/21/2025 3:00 PM EDT Appointment [address] [address] Apple Talavera MD [address] [place] [email or web address] 04/27/2025 8:30 AM EDT Office Visit [facility] at [address] [address] Apple Talavera MD [address] [place] [address] documented as of this encounter Visit Diagnoses Not on filedocumented in this encounter Additional Health Concerns Infection Onset Date Last Indicated Resolved Time CoV-Risk 05/07/2022 05/07/2022 05/18/2022 1:24 AM EDT Assessment Noted Time PHQ-2 Depression Total Score: 0 05/05/20 9:23 PM EDT documented as of this encounter Care Teams Slitter Creaser Slotter Operator Relationship Specialty Start Date End Date Karlos Lyons MD [address] [address] [email or web address] PCP - General Internal Medicine 05/08/21 05/09/22 Sergey Tyson MD [address] [place] [address] [email or web address] PCP - General Internal Medicine 05/10/22 Karlos Lyons MD [address] [place] [address] [email or web address] Insurance Assigned Provider 02/23/17 03/02/23 Omar Rocha MD [address] [place] [address] [email or web address] Medicine and Rehabilitation 05/08/21 Sagar Leung MD [address] [place] [address] [email or web address] Obstetrics and Gynecology 05/08/21 Yefri Hilliard MD [address] [place] [address] Endocrinology 05/08/21 Karlos Murry MD [address] [place] [address] [email or web address] Gastroenterology 02/27/22 Apple Talavera MD [address] [place] [address] [email or web address] Primary Oncologist Medical Oncology 02/19/23 Sergey Tyson MD [address] [place] [address] [email or web address] Insurance Assigned Provider 02/29/24 Mena Mcwilliams RN [address] [place] [address] [email or web address] iCMP Dry Folder Cloth 11/13/23 12/11/23 documented as of this encounter Additional Source Comments The information contained in this document represents components of the legal health record. It is not the complete legal health record.[facility]
--- OUTSIDE RECORDS SUMMARY | 2025-04-02 12:19 | XMS_ITS | Encounter Summary ---
Author Organization [facility] Address [address] [place] [address] Phone Care Team Providers Care Supervisor Nut Processing Name Role Phone Karlos Lyons MD Primary Care Provider [phone] Karlos Lyons MD Unavailable [phone] Omar Rocha MD Unavailable [phone] Sagar Leung MD Unavailable Karlos Lyons MD Primary Care Provider Yefri Hilliard MD Unavailable Karlos Murry MD Unavailable [phone] Sergey Tyson MD Primary Care Provider Apple Talavera MD Unavailable [phone] Sergey Tyson MD Unavailable Mena Mcwilliams RN Unavailable [phone] Reason for Referral * Outpatient Procedure - Closed Specialty Diagnoses / Procedures Referred By Jessica balbuena Referred To Contact Radiology Diagnoses Dyspepsia Procedures NM Gastric Emptying Karlos Murry MD 10 [place] [address] Email: Referral ID Status Reason Start Date Expiration Date Visits Re quested Visits Authorized [id number] Closed 01/09/2018 01/09/2019 1 1 Encounter Details Date Type Department Care Team (Late st Contact Info) Description 01/09/2018 Ancillary Orders Virtual Department [address] [place] [address] Karlos Murry MD [address] [place] [address] Dyspepsia Social History Tobacco Use Types Packs/Day [...] (Late Contact Info) Description 03/18/2024 Procedure Pass [address] [address] 04/13/2025 9:00 AM EDT Appointment [facility] Internal Medicine [address] [place] [address] Sergey Tyson MD [address] [place] [address] 04/21/2025 3:00 PM EDT Appointment [address] [address] Apple Talavera MD [address] [place] [address] 04/27/2025 8:30 AM EDT Office Visit [facility] at [address] [address] Apple Talavera MD [address] [place] [email or web address] documented as of this encounter Results * [...] as of this encounter Care Teams Supervisor Nut Processing Relationship Specialty Start Date End Date Karlos Lyons MD [address] [address] [email or web address] PCP - General Internal Medicine 07/14/14 05/07/21 Karlos Lyons MD [address] [place] [address] [email or web address] PCP - General Internal Medicine 05/08/21 05/09/22 Sergey Tyson MD 40 [place] [address] [email or web address] PCP - General Internal Medicine 05/10/22 Karlos Lyons MD [address] [place] [address] [email or web address] Insurance Assigned Provider 02/23/17 03/02/23 Omar Rocha MD [address] [place] [address] [email or web address] Physical Medicine and Rehabilitation 05/08/21 Sagar Leung MD 22 [facility], [address] [place] [address] [email or web address] Obstetrics and Gynecology 05/08/21 Yefri Hilliard MD [address] [place] [address] Endocrinology 05/08/21 Karlos Murry MD 55 [place] [address] [email or web address] Gastroenterology 02/27/22 Apple Talavera MD [address] [place] [address] [email or web address] Primary Oncologist Medical Oncology 02/19/23 Sergey Tyson MD [address] [place] [address] [email or web address] Insurance Assigned Provider 02/29/24 Mena Mcwilliams, RN [address] [place] [address] [email or web address] iCMP Vision Specialist 11/13/23 12/11/23 documented as of this encounter Additional Source Comments The information contained in this document represents components of the legal health record. It is not the complete legal health record.[facility]
--- OUTSIDE RECORDS SUMMARY | 2025-04-02 12:19 | XMS_ITS | Encounter Summary ---
Author Organization [facility] Address [address] [place] [address] Care Team Providers Care Car Greaser Name Role Phone Sergey Tyson MD Primary Care Provider [phone] Encounter Details Date Type Department Care Team (Late st Contact Info) Description 12/24/[address] [facility] - Main Lab [address] [facility] [place] [address] [facility] [place] [address] [place] [address] Calculus of kidney Social History Tobacco Use [...] LAB CHEMISTRY METHOD 12/24/2024 7:29 PM EST [facility] ([facility] LAB Blood Venous blood specimen / Unknown 12/24/2024 2:15 PM EST 12/24/2024 6:35 PM EST [facility] [place] LAB BLOOD ORDERABLES Final Re sult Performing Organization Address City/[facility]/ZIP Co de Phone Number [facility] [address] [place] [address], [place] [phone] * Parathyroid hormone intact (12/24/2024 2:15 PM EST) PTH 36.6 18.5 - 88.0 pcg/mL LAB CHEMISTRY METHOD 12/24/2024 7:29 PM EST [facility] Blood Venous blood specimen / Unknown 12/24/2024 2:15 PM EST 12/24/2024 6:35 PM EST [facility] [place] LAB BLOOD ORDERABLES Final Re sult Performing Organization Address [facility]/ZIP Co de Phone Number [facility] [address] [place] [address], [place] [phone] documented in this encounter Visit Diagnoses Diagnosis Calculus of kidney documented in this encounter Care Teams Car Greaser Relationship Specialty Start Date End Date Sergey Tyson MD [address] [place] [address] PCP - General Internal Medicine 12/24/24 documented as of this encounter
--- OUTSIDE RECORDS SUMMARY | 2025-04-02 12:19 | XMS_ITS | Encounter Summary ---
Author Organization [facility] Address [address] [place], [place] [address] [place] [address] Phone Care Team Providers Care Corporate Controller Name Role Phone Karlos Lyons MD Primary Care Provider Karlos Lyons MD Unavailable [phone] Omar Rocha MD Unavailable [phone] Sagar Leung MD Unavailable Karlos Lyons MD Primary Care Provider + [phone] Yefri Hilliard MD Unavailable [phone] Karlos Murry MD Unavailable [phone] Sergey Tyson MD Primary Care Provider Apple Talavera MD Unavailable [phone] Sergey Tyson MD Unavailable Mena Mcwilliams RN Unavailable [phone] Encounter Details Date Type Department Care Team (Late st Contact Info) Description 09/04/2019 Ancillary Orders [facility] Internal Medicine [address] [place] [address] Karlos Lyons MD [address] [place] [address] [email or web address] Breast screening Social History Tobacco [...] Contact Info) Description 03/18/2024 Procedure Pass [address] [address] 04/13/2025 9:00 AM EDT Appointment [facility] Internal Medicine [address] [place] [address] Sergey yTson MD [address] [place] [address] 04/21/2025 3:00 PM EDT Appointment [address] [address] Apple Talavera MD [address] [place] [address] 04/27/2025 8:30 AM EDT Office Visit [facility] at [address] [address] Apple Talavera MD [address] [place] [address] documented as of this encounter Results * [...] lowers the sensitivity of mammography. POS - [id number] Narrative 09/04/2019 11:32 AM EDT Full-field digital [...] whichlowers the sensitivity of mammography. POS - [id number] Karlos Lyons MD IMG MG EXAMS documented [...] documented as of this encounter Care Teams Corporate Controller Relationship Specialty Start Date End Date Karlos Lyons MD [address] [place] [address] [email or web address] PCP - General Internal Medicine 07/14/14 05/07/21 Karlos Lyons MD [address] [place] [address] [email or web address] PCP - General Internal Medicine 05/08/21 05/09/22 Sergey Tyson MD [address] [place] [address] [email or web address] PCP - General Internal Medicine 05/10/22 Karlos Lyons MD [address] [place] [address] [email or web address] Insurance Assigned Provider 02/23/17 03/02/23 Omar Rocha MD [address] [place] [address] [email or web address] Physical Medicine [email or web address] Rehabilitation 05/08/21 Sagar Leung MD [address] [place] [address] [address] [place] [address] Obstetrics and Gynecology 05/08/21 Yefri Hilliard MD [address] [place] [address] Endocrinology 05/08/21 Karlos Murry MD [address] [place] [address] Gastroenterology 02/27/22 Apple Talavera MD [address] [place] [address] [email or web address] Primary Oncologist Medical Oncology 02/19/23 Sergey Tyson MD [address] [place] [address] [email or web address] Insurance Assigned Provider 02/29/24 Mena Mcwilliams, RN [address] [place] [address] [email or web address] [employer] Tank Cleaning Supervisor 11/13/23 12/11/23 documented as of this encounter Additional Source Comments The information contained in this document represents components of the legal health record. It is not the complete legal health record.[facility]
--- OUTSIDE RECORDS SUMMARY | 2025-04-02 12:19 | XMS_ITS | Encounter Summary ---
Author Organization [facility] Address [facility] [address] [facility] [address] [place] [address] Phone Care Team Providers Care Director Safety Council Name Role Phone Omar Rocha MD Unavailable [phone] Sagar Leung MD Unavailable Yefri Hilliard MD Unavailable Karlos Murry MD Unavailable [phone] Sergey Tyson MD Primary Care Provider Apple Talavera MD Unavailable [phone] Sergey Tyson MD Unavailable Reason for Visit * Reason Comments Follow Up Visit ED [facility] Medical Encounter Details Date Type Department Care Team (Late st Contact Info) Description 04/01/2025 10:20 AM EDT Office Visit [facility] Internal Medicine [address] [place], [place] [phone] Dia Álvarez PA-C [address] [place], [place] [phone] Pneumonia of both lower lobes due to [...] list. On 03/30/2025 she ultimately went to [facility] ER due to left lower quadrant [...] She has an upcoming appointment with a door serviceman on Saturday. Additionally, she reports umbilical pain, intermittent diarrhea, and occasional foul-smelling, greasy stools. She has a family history of gallbladder disease, with her mother, sister, and grandmother all having had the condition. Current Outpatient Medications Ordered in [facility] Medication Sig albuterol 90 mcg/actuation inhaler Inhale 2 puffs into the lungs every 6 (six) hours as needed for wheezing. azithromycin (ZITHROMAX) 250 MG tablet carisoprodol (SOMA) 350 MG tablet TAKE 1 TAB 4 TIMES A DAY PARTIAL FILL PER PATIENT REQUEST MAY RISK CONTROL SPECIALIST ON 02/14/2023 cholecalciferol (VITAMIN D3) 2,000 unit [...] bedtime. Indications: managed by Dr. Rocha at [facility] simethicone 125 mg Cap Take [...] membranes moist. Neck supple and symmetrical. Skin: [place], warm, dry. Chest: No focal tenderness to [...] st Contact Info) Description 03/18/2024 Procedure Pass [address] [address] 04/13/2025 9:00 AM EDT Appointment [facility] Internal Medicine [address] [place] [address] Sergey Tyson MD [address] [place] [address] 04/21/2025 3:00 PM EDT Appointment [address] [address] Apple Talavera MD [address] [place] [address] 04/27/2025 8:30 AM EDT Office Visit [facility] at [address] [address] Apple Talavera MD [address] [place] [address] [email or web address] documented as of this encounter Visit Diagnoses Diagnosis Pneumonia of both lower lobes due to infectious organism- Primary Generalized abdominal pain Abdominal pain, generalized documented in this encounter Additional Health Concerns Assessment Noted Time PHQ-9 Depression Total Score: 3 09/11/20 24 9:24 AM EDT PHQ-2 Depression Total Score: 1 09/11/20 24 9:24 AM EDT documented as of this encounter Care Teams Director Safety Council Relationship Specialty Start Date End Date Sergey Tyson MD [address] [place] [address] [email or web address] PCP - General Internal Medicine 05/10/22 Omar Rocha MD [email or web address] Physical Medicine and Rehabilitation 05/08/21 Sagar Leung MD [address] [place] [address] [address] [place] [address] Obstetrics and Gynecology 05/08/21 Yefri Hilliard MD [address] [place] [address] Endocrinology 05/08/21 Karlos Murry MD [address] [place] [address] Gastroenterology 02/27/22 Apple Talavera MD [address] [place] [address] Primary Oncologist Medical Oncology 02/19/23 Sergey Tyson MD [address] [place] [address] [email or web address] Insurance Assigned Provider 02/29/24 documented as of this encounter Additional Source Comments The information contained in this document represents components of the legal health record. It is not the complete legal health record.[facility]
--- OUTSIDE RECORDS SUMMARY | 2025-04-02 12:19 | XMS_ITS | Encounter Summary ---
Author Organization [facility] Address [address] [place] [address] [address] [place] [address] Phone Care Team Providers Care Gravity Prospecting Operator Helper Name Role Phone Karlos Lyons MD Primary Care Provider Karlos Lyons MD Unavailable [phone] Omar Rocha MD Unavailable [phone] Sagar Leung MD Unavailable Karlos Lyons MD Primary Care Provider + [phone] Yefri Hilliard MD Unavailable [phone] Karlos Murry MD Unavailable [phone] Sergey Tyson MD Primary Care Provider [phone] Apple Talavera MD Unavailable [phone] Sergey Tyson MD Unavailable Mena Mcwilliams RN Unavailable [phone] Encounter Details Date Type Department Care Team (Latest Contact Info) Description 10/30/2018 Transcribe Orders [address] [place] [address] Karlos Murry MD [address] [place] [address] [phone] Nausea (Primary Dx) Social History Tobacco Use [...] st Contact Info) Description 03/18/2024 Procedure Pass [address] [address] 04/13/2025 9:00 AM EDT Appointment [facility] Internal Medicine [address] [place] [address] Sergey Tyson MD [address] [place] [address] [email or web address] 04/21/2025 3:00 PM EDT Appointment [address] [address] Apple Talavera MD [address] [place] [address] 04/27/2025 8:30 AM EDT Office Visit [facility] at [address] [address] Apple Talavera MD [address] [place] [address] documented as of this encounter Results * Stool fat/fiber exam (10/29/2018 8:00 PM EST) FATTY ACID NORMAL NORMAL [facility] Neutral Fat, stool NORMAL NORMAL [facility] Stool (Stool) 10/29/2018 8:0 0 PM EST 10/30/2018 11:55 AM EST Karlos Murry MD BODY FLUIDS AND ST OOLS ORDERABLES [facility] [address] [place] [address] documented in this encounter Visit Diagnoses Diagnosis Nausea- Primary Nausea alone documented in this encounter Additional Health Concerns Infection Onset Date Last Indicated Resolved Time CoV-Risk 05/07/2022 05/07/2022 05/18/2022 1:24 AM EDT Assessment Noted Time PHQ-2 Depression Total Score: 0 10/20/20 18 10:00 AM EST documented as of this encounter Care Teams Gravity Prospecting Operator Helper Relationship Specialty Start Date End Date Karlos Lyons MD [address] [place] [address] [email or web address] PCP - General Internal Medicine 07/14/14 05/07/21 Karlos Lyons MD [address] [place] [address] [email or web address] PCP - General Internal Medicine 05/08/21 05/09/22 Sergey Tyson MD [address] [place] [address] [email or web address] PCP - General Internal Medicine 05/10/22 Karlos Lyons MD [address] [place] [address] [email or web address] Insurance Assigned Provider 02/23/17 03/02/23 Omar Rocha MD [address] [place] [address] [address] [place] [address] [email or web address] Physical Medicine and Rehabilitation 05/08/21 Sagar Leung MD [address] [place] [address], [address] [place] [address] Obstetrics and Gynecology 05/08/21 Yefri Hilliard MD [address] [place] [address] Endocrinology 05/08/21 Karlos Murry MD [address] [place] [address] Gastroenterology 02/27/22 Apple Talavera MD [address] [place] [address] Primary Oncologist Medical Oncology 02/19/23 Sergey Tyson MD [address] [place] [address] Insurance Assigned Provider 02/29/24 Mena Mcwilliams, RN [address] [place] [address] [email or web address] i[employer] Distillery Worker 11/13/23 12/11/23 documented as of this encounter Additional Source Comments The information contained in this document represents components of the legal health record. It is not the complete legal health record.[facility]
--- OUTSIDE RECORDS SUMMARY | 2025-04-02 12:19 | XMS_ITS | Encounter Summary ---
Author Organization [facility] Address [address] [place] [address] [address] [place] [address] Phone Care Team Providers Care Senior Information Security Engineer Name Role Phone Karlos Lyons MD Primary Care Provider Karlos Lyons MD Unavailable [phone] Omar Rocha MD Unavailable [phone] Sagar Leung MD Unavailable Karlos Lyons MD Primary Care Provider + [phone] Yefri Hilliard MD Unavailable [phone] Karlos Murry MD Unavailable [phone] Sergey Tyson MD Primary Care Provider Apple Talavera MD Unavailable [phone] Sergey Tyson MD Unavailable Mena Mcwilliams RN Unavailable [phone] Encounter Details Date Type Department Care Team (Late st Contact Info) Description 03/16/2019 Procedure Pass [facility] [address] [place] [address] Social History Tobacco Use Types [...] st Contact Info) Description 03/18/2024 Procedure Pass [address] [address] 04/13/2025 9:00 AM EDT Appointment [facility] Internal Medicine [address] [place] [address] Sergey Tyson MD [address] [place] [address] 04/21/2025 3:00 PM EDT Appointment [address] [address] Apple Talavera MD [address] [place] [address] 04/27/2025 8:30 AM EDT Office Visit [facility] at [address] [address] Apple Talavera MD [address] [place] [address] documented as of this encounter Visit Diagnoses Not on filedocumented in this encounter Additional Health Concerns Infection Onset Date Last Indicated Resolved Time CoV-Risk 05/07/2022 05/07/2022 05/18/2022 1:24 AM EDT Assessment Noted Time PHQ-2 Depression Total Score: 0 10/20/20 10:00 AM EST documented as of this encounter Care Teams Senior Information Security Engineer Relationship Specialty Start Date End Date Karlos Lyons MD [address] [address] [email or web address] PCP - General Internal Medicine 07/14/14 05/07/21 Karlos Lyons MD [address] [place] [address] [email or web address] PCP - General Internal Medicine 05/08/21 05/09/22 Sergey Tyson MD [address] [place] [address] [email or web address] PCP - General Internal Medicine 05/10/22 Karlos Lyons MD [address] [place] [address] [email or web address] Insurance Assigned Provider 02/23/17 03/02/23 Omar Rocha MD [address] [place] [address] [email or web address] Physical Medicine and Rehabilitation 05/08/21 Sagar Leung MD [address] [place] [address] [address] [place] [address] [email or web address] Obstetrics and Gynecology 05/08/21 Yefri Hilliard MD [address] [place] [address] Endocrinology 05/08/21 Karlos Murry MD [address] [place] [address] [email or web address] Gastroenterology 02/27/22 Apple Talavera MD [address] [place] [address] [email or web address] Primary Oncologist Medical Oncology 02/19/23 Sergey Tyson MD [address] [place] [address] [email or web address] Insurance Assigned Provider 02/29/24 Mena Mcwilliams, RN [address] [place] [address] [email or web address] i[employer] Fire Medic 11/13/23 12/11/23 documented as of this encounter Additional Source Comments The information contained in this document represents components of the legal health record. It is not the complete legal health record.[facility]
--- OUTSIDE RECORDS SUMMARY | 2025-04-02 12:19 | XMS_ITS | Encounter Summary ---
Author Organization [facility] Address [address] [facility] [address] [place] [address] Phone Care Team Providers Care Ledger Poster Name Role Phone Karlos Lyons MD Primary Care Provider [phone] Karlos Lyons MD Unavailable [phone] Omar Rocha MD Unavailable [phone] Sagar Leung MD Unavailable Karlos Lyons MD Primary Care Provider Yefri Hilliard MD Unavailable [phone] Karlos Murry MD Unavailable [phone] Sergey Tyson MD Primary Care Provider Apple Talavera MD Unavailable [phone] Sergey Tyson MD Unavailable Mena Mcwilliams RN Unavailable Reason for Referral * Consultation (Within 1 month) - Closed Specialty Diagnoses / Procedures Referred By Jessica balbuena Referred To Contact Rheumatology Marquita Jacobo MD [address] [place] [address] [address] [place] [address] Referral ID Status Reason Start Date Expiration Date Visits Re quested Visits Authorized [id number] Closed 05/30/2018 05/31/2019 1 1 Encounter Details Date Type Department Care Team (Late Contact Info) Description 05/30/2018 Transcribe Orders [facility] Rheumatology [address], [address] Floor, [address] [place] [address] Marquita Jacobo MD [address] [facility] [address] [place] [address] [email or web address] Social History Tobacco Use Types Packs/Day Years [...] (Late Contact Info) Description 03/18/2024 Procedure Pass [address] [address] 04/13/2025 9:00 AM EDT Appointment [facility] Internal Medicine [address] [place] [address] Sergey Tyson MD [address] [place] [address] [email or web address] 04/21/2025 3:00 PM EDT Appointment [address] [address] Apple Talavera MD [address] [place] [address] [email or web address] 04/27/2025 8:30 AM EDT Office Visit [facility] [address] [place] [address] Apple Talavera MD [address] [place] [address] [email or web address] Scheduled Referrals Name Type Priority Associated Diagnoses Order Schedule Ambulatory referral to [facility] Rheumatology Outpatient Referral Routine Ordered: 05/30/2018 documented as of this encounter Visit Diagnoses Not on filedocumented in this encounter Additional Health Concerns Infection Onset Date Last Indicated Resolved Time CoV-Risk 05/07/2022 05/07/2022 05/18/2022 1:24 AM EDT documented as of this encounter Care Teams Ledger Poster Relationship Specialty Start Date End Date Karlos Lyons MD [address] [place] [address] [email or web address] PCP - General Internal Medicine 07/14/14 05/07/21 Karlos Lyons MD [address] [place] [address] [email or web address] PCP - General Internal Medicine 05/08/21 05/09/22 Sergey Tyson MD [address] [place] [address] [email or web address] PCP - General Internal Medicine 05/10/22 Karlos Lyons MD [address] [place] [address] [email or web address] Insurance Assigned Provider 02/23/17 03/02/23 Omar Rocha MD [address] [place] [address] 101 [place] [address] [email or web address] Physical Medicine and Rehabilitation 05/08/21 Sagar Leung MD [address] [place] [address], [address] [place] [address] Obstetrics and Gynecology 05/08/21 Yefri Hilliard MD [address] [place] [address] Endocrinology 05/08/21 Karlos Murry MD [address] [place] [address] Gastroenterology 02/27/22 Apple Talavera MD [address] [place] [address] Primary Oncologist Medical Oncology 02/19/23 Sergey Tyson MD [address] [place] [address] Insurance Assigned Provider 02/29/24 Mena Mcwilliams, RN [address] [place] [address] [email or web address] i[employer] Rehabilitation Aide/Scheduler 11/13/23 12/11/23 documented as of this encounter Additional Source Comments The information contained in this document represents components of the legal health record. It is not the complete legal health record.[facility]
--- OUTSIDE RECORDS SUMMARY | 2025-04-02 12:19 | XMS_ITS | Encounter Summary ---
Author Organization [facility] Address [address] [place] [address] [address] [place] [address] Phone Care Team Providers Care Heel Seat Trimmer Name Role Phone Karlos Lyons MD Primary Care Provider Karlos Lyons MD Unavailable [phone] Omar Rocha MD Unavailable [phone] Sagar Leung MD Unavailable Karlos Lyons MD Primary Care Provider + [phone] Yefri Hilliard MD Unavailable [phone] Karlos Murry MD Unavailable [phone] Sergey Tyson MD Primary Care Provider Apple Talavera MD Unavailable [phone] Sergey Tyson MD Unavailable Mena Mcwilliams RN Unavailable [phone] Reason for Referral * Occupational Therapy (Routine) - Closed Specialty Diagnoses / Procedures Referred By Jessica balbuena Referred To Contact Occupational Therapy Diagnoses Encounter for rehabilitation System, Provider Not In, PhD [facility] [address] [place] [address] [address] Referral ID Status Reason Start Date Expiration Date Visits Re quested Visits Authorized [id number] Closed 02/14/2018 11/24/2018 99 99 Encounter Details Date Type Department Care Team (Latest Contact Info) Description 02/14/2018 Transcribe Orders [facility] [address] [place] [address] Theresa Peterson [facility] [place] [address] [email or web address] Encounter for rehabilitation (Primary Dx) Social History [...] Contact Info) Description 03/18/2024 Procedure Pass [address] [address] 04/13/2025 9:00 AM EDT Appointment [facility] Internal Medicine [address] [place] [address] Sergey Tyson MD [address] [place] [address] 04/21/2025 3:00 PM EDT Appointment [address] [address] Apple Talavera MD [address] [place] [address] 04/27/2025 8:30 AM EDT Office Visit [facility] at [address] [address] Apple Talavera MD [address] [place] [address] [email or web address] Scheduled Referrals Name Type Priority Associated Diagnoses Orde r Schedule Ambulatory referral to [facility] Occupational Therapy Outpatient Referral Routine Encounter for rehabilitation Ordered: 02/14/2018 documented as of this encounter Visit Diagnoses Diagnosis Encounter for rehabilitation- Primary documented in this encounter Additional Health Concerns Infection Onset Date Last Indicated Resolved Time CoV-Risk 05/07/2022 05/07/2022 05/18/2022 1:24 AM EDT documented as of this encounter Care Teams Heel Seat Trimmer Relationship Specialty Start Date End Date Karlos Lyons MD [address] [place] [address] [email or web address] PCP - General Internal Medicine 07/14/14 05/07/21 Karlos Lyons MD [address] [place] [address] [email or web address] PCP - General Internal Medicine 05/08/21 05/09/22 Sergey Tyson MD [address] [place] [address] [email or web address] PCP - General Internal Medicine 05/10/22 Karlos Lyons MD [address] [place] [address] [email or web address] Insurance Assigned Provider 02/23/17 03/02/23 Omar Rocha MD [address] [place] [address] [email or web address] Physical Medicine and Rehabilitation 05/08/21 Sagar Leung MD 22 [facility], [address] [place] [address] Obstetrics and Gynecology 05/08/21 Yefri Hilliard MD [address] [place] [address] Endocrinology 05/08/21 Karlos Murry MD [address] [place] [address] [email or web address] Gastroenterology 02/27/22 Apple Talavera MD [address] [place] [address] [email or web address] Primary Oncologist Medical Oncology 02/19/23 Sergey Tyson MD [address] [place] [address] [email or web address] Insurance Assigned Provider 02/29/24 Mena Mcwilliams, RN [address] [place] [address] [email or web address] i[employer] Mold Release Worker 11/13/23 12/11/23 documented as of this encounter Additional Source Comments The information contained in this document represents components of the legal health record. It is not the complete legal health record.[facility]"
--- OUTSIDE RECORDS SUMMARY | 2025-04-02 12:19 | XMS_ITS | Encounter Summary ---
Author Organization [facility] Address [address] [place], [place] [address] [place] [address] Phone Care Team Providers Care Thoracic Medicine Physician Name Role Phone Karlos Lyons MD Primary Care Provider Karlos Lyons MD Unavailable [phone] Omar Rocha MD Unavailable [phone] Sagar Leung MD Unavailable Karlos Lyons MD Primary Care Provider + [phone] Yefri Hilliard MD Unavailable [phone] Karlos Murry MD Unavailable [phone] Sergey Tyson MD Primary Care Provider [phone] Apple Talavera MD Unavailable [phone] Sergey Tyson MD Unavailable Mena Mcwilliams RN Unavailable [phone] Encounter Details Date Type Department Care Team (Late st Contact Info) Description 08/19/2018 Ancillary Orders [facility] Internal Medicine [address] [place] [address] Karlos Lyons MD [address] [place] [address] [email or web address] Breast screening Social History Tobacco Use [...] st Contact Info) Description 03/18/2024 Procedure Pass [address] [address] 04/13/2025 9:00 AM EDT Appointment [facility] Medical [facility] Internal Medicine [address] [place] [address] Sergey Tyson MD [address] [place] [address] 04/21/2025 3:00 PM EDT Appointment [address] [address] Apple Talavera MD [address] [place] [address] 04/27/2025 8:30 AM EDT Office Visit [facility] at [address] [address] Apple Talavera MD [address] [place] [address] documented as of this encounter Visit Diagnoses Diagnosis Breast screening Breast screening, unspecified documented in this encounter Additional Health Concerns Infection Onset Date Last Indicated Resolved Time CoV-Risk 05/07/2022 05/07/2022 05/18/2022 1:24 AM EDT documented as of this encounter Care Teams Thoracic Medicine Physician Relationship Specialty Start Date End Date Karlos Lyons MD [address] [address] [email or web address] PCP - General Internal Medicine 07/14/14 05/07/21 Karlos Lyons MD [address] [place] [address] [email or web address] PCP - General Internal Medicine 05/08/21 05/09/22 Sergey Tyson MD [address] [place] [address] [email or web address] PCP - General Internal Medicine 05/10/22 Karlos Lyons MD [address] [place] [address] [email or web address] Insurance Assigned Provider 02/23/17 03/02/23 Omar Rocha MD [address] [place] [address] [email or web address] Medicine and Rehabilitation 05/08/21 Sagar Leung MD [address] [place] [address] [address] [place] [address] [email or web address] Obstetrics and Gynecology 05/08/21 Yefri Hilliard MD [address] [place] [address] Endocrinology 05/08/21 Karlos Murry MD [address] [place] [address] [email or web address] Gastroenterology 02/27/22 Apple Talavera MD [address] [place] [address] [email or web address] Primary Oncologist Medical Oncology 02/19/23 Sergey Tyson MD [address] [place] [address] [email or web address] Insurance Assigned Provider 02/29/24 Mena Mcwilliams, RN [address] [place] [address] [email or web address] [employer] Md Allergy Immunology 11/13/23 12/11/23 documented as of this encounter Additional Source Comments The information contained in this document represents components of the legal health record. It is not the complete legal health record.[facility]
--- OUTSIDE RECORDS SUMMARY | 2025-04-02 12:19 | XMS_ITS | Clinical Summary ---
Author Organization [facility] Address [address] [place] [address] Phone Care Team Providers Care Cylinder Press Operator Apprentice Name Role Phone Sergey Tyson MD Primary Care Provider [phone] Social History Tobacco Use Types Packs/Day Years [...] age to complete this topic Insurance MEDICARE [facility] Care Teams Cylinder Press Operator Apprentice Relationship Specialty Start Date End Date Sergey Tyson MD [address] [place] [address] PCP - General Internal Medicine 12/24/24
--- OUTSIDE RECORDS SUMMARY | 2025-04-02 12:19 | XMS_ITS | Encounter Summary ---
Author Organization [facility] Address [address] [place] [address] [address] [place] [address] Phone Care Team Providers Care Mechanism Inspector Name Role Phone Karlos Lyons MD Primary Care Provider Karlos Lyons MD Unavailable [phone] Omar Rocha MD Unavailable [phone] aSgar Leung MD Unavailable Karlos Lyons MD Primary Care Provider + [phone] Yefri Hilliard MD Unavailable [phone] Karlos Murry MD Unavailable [phone] Sergey Tyson MD Primary Care Provider [phone] Apple Talavera MD Unavailable [phone] Sergey Tyson MD Unavailable Mena Mcwilliams RN Unavailable [phone] Encounter Details Date Type Department Care Team (Late st Contact Info) Description 12/02/2017 Ancillary Orders [facility], X-Ray - [facility] [address] [place] [address] Omar Rocha MD [address] [place] [address] [email or web address] Pain of right forearm Social History Tobacco [...] st Contact Info) Description 03/18/2024 Procedure Pass [address] [address] 04/13/2025 9:00 AM EDT Appointment [facility] Internal Medicine [address] [place] [address] Sergey Tyson MD 40 [place] [address] 04/21/2025 3:00 PM EDT Appointment [address] [address] Apple Talavera MD [address] [place] [id number] 04/27/2025 8:30 AM EDT Office Visit [facility] at [address] [address] Apple Talavera MD [address] [place] [address] [email or web address] documented as of this encounter Results * [...] documented as of this encounter Care Teams Mechanism Inspector Relationship Specialty Start Date End Date Karlos yLons MD [address] [place] [address] [email or web address] PCP - General Internal Medicine 07/14/14 05/07/21 Karlos Lyons MD [address] [place] [address] [email or web address] PCP - General Internal Medicine 05/08/21 05/09/22 Sergey Tyson MD [address] [place] [address] [email or web address] PCP - General Internal Medicine 05/10/22 Karlos Lyons MD [address] [place] [address] [email or web address] Insurance Assigned Provider 02/23/17 03/02/23 Omar Rocha MD [address] [place] [address] Physical Medicine and Rehabilitation 05/08/21 Sagar Leung MD [address] [place] [address], [address] [place] [address] [email or web address] Obstetrics and Gynecology 05/08/21 Yefri Hilliard MD [address] [place] [address] Endocrinology 05/08/21 Karlos Murry MD [address] [place] [address] [email or web address] Gastroenterology 02/27/22 Apple Talavera MD [address] [place] [address] [email or web address] Primary Oncologist Medical Oncology 02/19/23 Sergey Tyson MD [address] [place] [address] [email or web address] Insurance Assigned Provider 02/29/24 Mena Mcwilliams, RN [address] [place] [address] [email or web address] 11/13/23 12/11/23 documented as of this encounter Additional Source Comments The information contained in this document represents components of the legal health record. It is not the complete legal health record.[facility]
--- OUTSIDE RECORDS SUMMARY | 2025-04-02 12:19 | XMS_ITS | Encounter Summary ---
Author Organization [facility] Address [address] [place] [address] [address] [place] [address] Phone Care Team Providers Care Senior User Experience Architect Name Role Phone Karlos Lyons MD Primary Care Provider Karlos Lyons MD Unavailable [phone] Omar Rcoha MD Unavailable [phone] Sagar Leung MD Unavailable Karlos Lyons MD Primary Care Provider [phone] Yefri Hilliard MD Unavailable [phone] Karlos Murry MD Unavailable [phone] Sergey Tyson MD Primary Care Provider Apple Talavera MD Unavailable [phone] Sergey Tyson MD Unavailable Mena Mcwilliams RN Unavailable [phone] Reason for Referral * Outpatient Procedure - Closed Specialty Diagnoses / Procedures Referred By Jessica balbuena Referred To Contact Radiology Diagnoses Bilateral hand pain Complex regional pain syndrome type 1 of both upper extremities Procedures NM Bone Flow 3 Phase Omar Rocha MD [address] [place] [address] Email: [email or web address] Referral ID Status Reason Start Date Expiration Date Visits Re quested Visits Authorized [id number] Closed 04/17/2018 04/17/2019 1 1 Encounter Details Date Type Department Care Team (Late Contact Info) Description 04/17/2018 Ancillary Orders Virtual Department [address] [place] [address] Omar Rocha MD [address] [place] [address] [email or web address] Bilateral hand pain; Complex regional pain syndrome [...] (Late Contact Info) Description 03/18/2024 Procedure Pass [address] [address] 04/13/2025 9:00 AM EDT Appointment [facility] Internal Medicine [address] [place] [address] Sergey Tyson MD 40 [place] [address] 04/21/2025 3:00 PM EDT Appointment [address] [address] Apple Talavera MD [address] [place] [address] 04/27/2025 8:30 AM EDT Office Visit [facility] at Annie Ruggiero [address] [place] [address] Apple Talavera MD [address] [place] [address] [email or web address] documented as of this encounter Results * [...] as of this encounter Care Teams Senior User Experience Architect Relationship Specialty Start Date End Date Karlos Lyons MD [address] [address] [email or web address] PCP - General Internal Medicine 07/14/14 05/07/21 Karlos Lyons MD [address] [address] [email or web address] PCP - General Internal Medicine 05/08/21 05/09/22 Sergey Tyson MD [address] [place] [address] [email or web address] PCP - General Internal Medicine 05/10/22 Karlos Lyons MD [address] [place] [address] [email or web address] Insurance Assigned Provider 02/23/17 03/02/23 Omar Rocha MD [address] [place] [address] [email or web address] Physical Medicine and Rehabilitation 05/08/21 Sagar Leung MD [address] [place] [address] [email or web address] Obstetrics and Gynecology 05/08/21 Yefri Hilliard MD [address] [place] [address] Endocrinology 05/08/21 Karlos Murry MD [address] [place] [address] [email or web address] Gastroenterology 02/27/22 Apple Talavera MD [address] [place] [address] [email or web address] Primary Oncologist Medical Oncology 02/19/23 Sergey Tyson MD [address] [place] [address] [email or web address] Insurance Assigned Provider 02/29/24 Mena Mcwilliams, RN [address] [place] [address] [email or web address] [employer] Fire Fighters Dispatcher 11/13/23 12/11/23 documented as of this encounter Additional Source Comments The information contained in this document represents components of the legal health record. It is not the complete legal health record.[facility]
--- OUTSIDE RECORDS SUMMARY | 2025-04-02 12:19 | XMS_ITS | Encounter Summary ---
Author Organization [facility] Address [address] [place] [address] [address] [place] [address] Phone Care Team Providers Care Registered Radiographer Name Role Phone Karlos Lyons MD Primary Care Provider Karlos Lyons MD Unavailable [phone] Omar Rocha MD Unavailable [phone] Sagar Leung MD Unavailable Karlos Lyons MD Primary Care Provider + [phone] Yefri Hilliard MD Unavailable [phone] Karlos Murry MD Unavailable [phone] Sergey Tyson MD Primary Care Provider Apple Talavera MD Unavailable [phone] Sergey Tyson MD Unavailable Mena Mcwilliams RN Unavailable [phone] Encounter Details Date Type Department Care Team (Late st Contact Info) Description 09/14/2017 Ancillary Orders [facility] at [place] [address] [place], [place] [phone] Apple Talavera MD [address] [place] [phone] [email or web address] Abnormal findings on diagnostic imaging of breast [...] st Contact Info) Description 03/18/2024 Procedure Pass [address] [address] 04/13/2025 9:00 AM EDT Appointment [facility] Medical [facility] Internal Medicine [address] [place] [address] Sergey Tyson MD [address] [place] [address] 04/21/2025 3:00 PM EDT Appointment [address] [address] Apple Talavera MD [address] [place] [address] [email or web address] 04/27/2025 8:30 AM EDT Office Visit [facility] General Cancer Center at [address] [address] Apple Talavera MD [address] [place] [address] documented as of this encounter Visit Diagnoses Diagnosis Abnormal findings on diagnostic imaging of breast Other (abnormal) findings on radiological examination of breast documented in this encounter Additional Health Concerns Infection Onset Date Last Indicated Resolved Time CoV-Risk 05/07/2022 05/07/2022 05/18/2022 1:24 AM EDT documented as of this encounter Care Teams Registered Radiographer Relationship Specialty Start Date End Date Karlos Lyons MD [address] [address] [email or web address] PCP - General Internal Medicine 07/14/14 05/07/21 Karlos Lyons MD [address] [place] [address] [email or web address] PCP - General Internal Medicine 05/08/21 05/09/22 Sergey Tyson MD [address] [place] [address] [email or web address] PCP - General Internal Medicine 05/10/22 Karlos Lyons MD [address] [place] [address] [email or web address] Insurance Assigned Provider 02/23/17 03/02/23 Omar Rocha MD [address] [place] [address] [email or web address] Physical Medicine and Rehabilitation 05/08/21 Sagar Leung MD [address] [place] [address], [address] [place] [address] [email or web address] Obstetrics and Gynecology 05/08/21 Yefri Hilliard MD [address] [place] [address] Endocrinology 05/08/21 Karlos Murry MD [address] [place] [address] [email or web address] Gastroenterology 02/27/22 Apple Talavera MD [address] [place] [address] [email or web address] Primary Oncologist Medical Oncology 02/19/23 Sergey Tyson MD [address] [place] [address] [email or web address] Insurance Assigned Provider 02/29/24 Mena Mcwilliams, RN [address] [place] [address] [email or web address] i[employer] Dinner Cook 11/13/23 12/11/23 documented as of this encounter Additional Source Comments The information contained in this document represents components of the legal health record. It is not the complete legal health record.[facility]
[2025-04-02 14:19] LABS: C Reactive Protein 0.32 mg/dL (< or = 0.50)
[2025-04-06 10:04] LABS: Class Almond 0; Class Brazil Nut 0; Class Cashew 0; Class Codfish 0; Class Cow's Milk 0; Class Egg white 0; Class Hazelnut 0; Class Macadamia Nut 0; Class Peanut 0; Class Salmon 0; Class Scallop 0; Class Sesame Seed 0; Class Shrimp 0; Class Soybean 0; Class Tuna 0; Class Walnut 0; Class Wheat 0; F001-IgE Egg White <0.10 kU/L; F002-IgE Milk <0.10 kU/L; F003-IgE Codfish <0.10 kU/L; F004-IgE Wheat <0.10 kU/L; F010-IgE Sesame Seed <0.10 kU/L; F013-IgE Peanut <0.10 kU/L; F014-IgE Soybean <0.10 kU/L; F017-IgE Hazelnut (Filbert) <0.10 kU/L; F018-IgE Brazil Nut <0.10 kU/L; F020-IgE Almond <0.10 kU/L; F024-IgE Shrimp <0.10 kU/L; F040-IgE Tuna <0.10 kU/L; F041 IgE Salmon <0.10 kU/L; F202-IgE Cashew Nut <0.10 kU/L; F256-IgE Walnut <0.10 kU/L; F338-IgE Scallop <0.10 kU/L; F345-IgE Macadmia Nut <0.10 kU/L
== END 2025-04-02 09:58 | disposition home or self-care (01) ==
LOC: HO.LAB 09:57
PROVIDERS: PCP Internal Medicine; Visit Provider Nurse Practitioner
DX: R19.7 Diarrhea, unspecified (principal); K90.9 Intestinal malabsorption, unspecified; R10.11 Right upper quadrant pain; A04.8 Other specified bacterial intestinal infections
CPT/HCPCS: 36415; 86003; 86140

== ENCOUNTER 2025-04-05 13:16 | Outpatient (REF) | payer BC, MEDICARE, SELFPAY ==
--- OUTSIDE RECORDS SUMMARY | 2025-04-05 13:35 | XMS_ITS | Encounter Summary ---
Author Organization [facility] Address [facility] [employer] [facility] [address] [place] [address] Phone Care Team Providers Care State Comptroller Name Role Phone Karlos Lyons MD Unavailable [phone] Omar Rocha MD Unavailable [phone] Sagar Leung MD Unavailable Karlos Lyons MD Primary Care Provider [phone] Yefri Hilliard MD Unavailable [phone] Karlos Murry MD Unavailable [phone] Sergey Tyson MD Primary Care Provider Apple Talavera MD Unavailable [phone] Sergey Tyson MD Unavailable Mena Mcwilliams RN Unavailable [phone] Encounter Details Date Type Department Care Team (Late st Contact Info) Description 05/07/2022 Procedure Pass [facility], Ct Scan - [address] [address] Social History Tobacco Use Types Packs/Day Years [...] high school, GED, job training, learning the Macedonian language, technical skills, or developing parenting skills)? [...] appointments or from getting medications? No 05/05/2022 Comments No Sex and Gender Information Value Date Recorded Sex Assigned at Female 05/05/2021 9:10 PM EDT Legal Sex Female 10:20 AM EDT Gender Identity Female 03/19/2021 10:12 AM EDT Sexual Orientation Straight 05/05/2021 9: 10 PM EDT documented as of this encounter Functional Status * Calculated C-SSRS Risk Score (Lifetime/Recent) Answer Date of Assessment Author No Risk Indicated 05/07/2022 11:25 AM EDT Freddy Hart, RUSS * [place] Suicide Severity Rating Scale (Screener/Recent Self-Report) Question Answer Date of Assessment Author 1. Wish to be (Past 1 Month) No 05/07/2022 11:25 AM EDT Edda Jaramillo, RUSS 2. Non-Specific Active Suicidal Thoughts (Past 1 Month) No 05/07/2022 11:25 AM EDT Edda Jaramillo, RN 6. Suicidal Behavior (Lifetime) No 05/07/2022 11:25 AM EDT Edda Jaramillo, RUSS documented as of this encounter Plan of Treatment Upcoming Encounters Date Type Department Care Team (Late st Contact Info) Description 03/18/2024 Procedure Pass [address] [address] 04/13/2025 9:00 AM EDT Office Visit [facility] Internal Medicine [address] [place] [address] Sergey Tyson MD 40 [place] [address] 04/21/2025 3:00 PM EDT Appointment [address] [address] Apple Talavera MD [address] [place] [address] 04/27/2025 8:30 AM EDT Office Visit [facility] at [address] [address] Apple Talavera MD [address] [place] [address] documented as of this encounter Visit Diagnoses Not on filedocumented in this encounter Additional Health Concerns Infection Onset Date Last Indicated Resolved Time CoV-Risk 05/07/2022 05/07/2022 05/18/2022 1:24 AM EDT Assessment Noted Time PHQ-2 Depression Total Score: 2 05/05/20 10:17 AM EDT documented as of this encounter Care Teams State Comptroller Relationship Specialty Start Date End Date Karlos Lyons MD [address] [place] [address] [email or web address] PCP - General Internal Medicine 05/08/21 05/09/22 Sergey Tyson MD [address] [place] [address] [email or web address] PCP - General Internal Medicine 05/10/22 Karlos Lyons MD [address] [place] [address] [email or web address] Insurance Assigned Provider 02/23/17 03/02/23 Omar Rocha MD [address] [place] [address] [email or web address] 05/08/21 Sagar Leung MD [address] [place] [address] [email or web address] Obstetrics and Gynecology 05/08/21 Yefri Hilliard MD [address] [place] [address] Endocrinology 05/08/21 Karlos Murry MD [address] [place] [address] [email or web address] Gastroenterology 02/27/22 Apple Talavera MD [address] [place] [address] Primary Oncologist Medical Oncology 02/19/23 Sergey Tyson MD [address] [place] [address] [email or web address] Insurance Assigned Provider 02/29/24 Mena Mcwilliams, RN [address] [place] [address] [email or web address] [employer] Real Estate Utilization Officer 11/13/23 12/11/23 documented as of this encounter Additional Source Comments The information contained in this document represents components of the legal health record. It is not the complete legal health record.[facility]
--- OUTSIDE RECORDS SUMMARY | 2025-04-05 13:35 | XMS_ITS | Encounter Summary ---
Author Organization [facility] Address [facility] [employer] [facility] [address] [place] [address] Phone Care Team Providers Care Aircraft Stress Analyst Name Role Phone Omar Rocha MD Unavailable Sagar Leung MD Unavailable Yefri Hilliard MD Unavailable [phone] Karlos Murry MD Unavailable [phone] Sergey Tyson MD Primary Care Provider Apple Talavera MD Unavailable [phone] Sergey Tyson MD Unavailable Encounter Details Date Type Department Care Team (Late st Contact Info) Description 03/30/2025 Orders Only [facility] Internal Medicine [address] [place] [address] Provider, MD Avelino [address] [place] [address] Social History Tobacco Use Types Packs/Day [...] or tries to control you? No 04/08/2024 Comments No Sex and Gender Information Value Date Recorded Sex Assigned at Female 05/05/2021 9:10 PM EDT Legal Sex Female 10:20 AM EDT Gender Identity Female 03/19/2021 10:12 AM EDT Sexual Orientation Straight 05/05/2021 9: 10 PM EDT documented as of this encounter Plan of Treatment Upcoming Encounters Date Type Department Care Team (Late st Contact Info) Description 03/18/2024 Procedure Pass [address] [address] 04/13/2025 9:00 AM EDT Office Visit [facility] Internal Medicine [address] [place] [address] Sergey Tyson MD 40 [place] [address] 04/21/2025 3:00 PM EDT Appointment [address] [address] Apple Talavera MD [address] [place] [address] [email or web address] 04/27/2025 8:30 AM EDT Office Visit [facility] at [address] [address] Apple Talavera MD [address] [place] [address] documented as of this encounter Procedures Procedure Name Priority Date/Time Associated Diagnosis Comments OUTSIDE US ABDOMEN REPORT ONLY Routine 03/30/2025 12:37 PM EDT OUTSIDE XR??CHEST REPORT ONLY Routine 03/30/2025 11:37 AM EDT documented in this encounter Results * Outside US Abdomen Report Only (03/30/2025 12:37 PM EDT) us Historical Provider MD BONDS US ABDOMEN Final Res ult * Outside XR??Chest Report Only (03/30/2025 11:37 AM EDT) us Historical Provider MD BONDS XR CHEST Final Res ult documented in this encounter Visit Diagnoses Not on filedocumented in this encounter Additional Health Concerns Assessment Noted Time PHQ-9 Depression Total Score: 3 09/11/20 24 9:24 AM EDT PHQ-2 Depression Total Score: 1 09/11/20 24 9:24 AM EDT documented as of this encounter Care Teams Aircraft Stress Analyst Relationship Specialty Start Date End Date Sergey Tyson MD [address] [place] [address] PCP - General Internal Medicine 05/10/22 Omar Rocha MD [email or web address] 05/08/21 Sagar Leung MD [address] [place] [address] Obstetrics and Gynecology 05/08/21 Yefri Hilliard MD [address] [place] [address] Endocrinology 05/08/21 Karlos Murry MD [address] [place] [address] Gastroenterology 02/27/22 Apple Talavera MD [address] [place] [address] Primary Oncologist Medical Oncology 02/19/23 Sergey Tyson MD [address] [place] [address] [email or web address] Insurance Assigned Provider 02/29/24 documented as of this encounter Additional Source Comments The information contained in this document represents components of the legal health record. It is not the complete legal health record.[facility]
--- OUTSIDE RECORDS SUMMARY | 2025-04-05 13:35 | XMS_ITS | Encounter Summary ---
Author Organization [facility] Address formerly [facility] [email or web address] [facility] [address] [place] [address] Phone Care Team Providers Care Field Manager Name Role Phone Karlos Lyons MD Unavailable Omar Rocha MD Unavailable [phone] Sagar Leung MD Unavailable Yefri Hilliard MD Unavailable Karlos Murry MD Unavailable [phone] Sergey Tyson MD Primary Care Provider Apple Talavera MD Unavailable [phone] Sergey Tyson MD Unavailable Mena Mcwilliams RN Unavailable [phone] Encounter Details Date Type Department Care Team (Late st Contact Info) Description 09/13/2022 Procedure Pass [facility] Admitting Dept Virtual Department [address] [employer], [place] [id number] Social History Tobacco Use Types Packs/Day Years [...] high school, GED, job training, learning the Rwandan language, technical skills, or developing parenting skills)? [...] st Contact Info) Description 03/18/2024 Procedure Pass [facility] [address] [place] [address] 04/13/2025 9:00 AM EDT Office Visit [facility] Internal Medicine [address] [place] [address] Sergey Tyson MD 40 [place] [address] 04/21/2025 3:00 PM EDT Appointment [facility], [facility]- [address] [address] Apple Talavera MD [address] [place] [address] [email or web address] 04/27/2025 8:30 AM EDT Office Visit [facility] at [address] [address] Apple Talavera MD [address] [place] [address] [email or web address] documented as of this encounter Visit Diagnoses Not on filedocumented in this encounter Additional Health Concerns Assessment Noted Time PHQ-2 Depression Total Score: 0 09/08/20 9:02 AM EDT documented as of this encounter Care Teams Field Manager Relationship Specialty Start Date End Date Sergey Tyson MD [address] [place] [address] [email or web address] PCP - General Internal Medicine 05/10/22 Karlos Lyons MD [address] [place] [address] [email or web address] Insurance Assigned Provider 02/23/17 03/02/23 Omar Rocha MD [address] [place] [address] [email or web address] Physical Medicine and Rehabilitation 05/08/21 Sagar Leung MD [address] [place] [address], [address] [place] [address] [email or web address] Obstetrics and Gynecology 05/08/21 Yefri Hilliard MD [address] [place] [address] Endocrinology 05/08/21 Karlos Murry MD [address] [place] [address] [email or web address] Gastroenterology 02/27/22 Apple Talavera MD [address] [place] [address] Primary Oncologist Medical Oncology 02/19/23 Sergey Tyson MD [address] [place] [address] Insurance Assigned Provider 02/29/24 Mena Mcwilliams, RN [address] [place] [address] [email or web address] [employer] Textile Technologist 11/13/23 12/11/23 documented as of this encounter Additional Source Comments The information contained in this document represents components of the legal health record. It is not the complete legal health record.[facility]
--- OUTSIDE RECORDS SUMMARY | 2025-04-05 13:35 | XMS_ITS | Encounter Summary ---
Author Organization [facility] Address [facility]ly [facility] [facility] [address] [place] [address] Phone Care Team Providers Care Saddle Maker Name Role Phone Karlos Lyons MD Primary Care Provider Karlos Lyons MD Unavailable [phone] Omar Rocha MD Unavailable [phone] Sagar Leung MD Unavailable Karlos Lyons MD Primary Care Provider [phone] Yefri Hilliard MD Unavailable [phone] Karlos Murry MD Unavailable [phone] Sergey Tyson MD Primary Care Provider Apple Talavera MD Unavailable [phone] Sergey Tyson MD Unavailable Mena Mcwilliams RN Unavailable [phone] Encounter Details Date Type Department Care Team (Late st Contact Info) Description 08/06/2020 Procedure Pass [facility], [address] [id number] Social History Tobacco Use Types Packs/Day Years Used Date Smoking Tobacco: Former Cigarettes 1.5 7 1 964 - 1970 Smokeless Tobacco: Never Comments:quit 1970 Alcohol Use Standard Drinks/Week Comments No 0 (1 standard drink = 0.6 oz pur e alcohol) Comments No Sex and Gender Information Value Date Recorded Sex Assigned at Female 05/05/2021 9:10 PM EDT Legal Sex Female 10:20 AM EDT Gender Identity Female 03/19/2021 10:12 AM EDT Sexual Orientation Straight 05/05/2021 9: 10 PM EDT documented as of this encounter Plan of Treatment Upcoming Encounters Date Type Department Care Team (Late st Contact Info) Description 03/18/2024 Procedure Pass [address] [address] 04/13/2025 9:00 AM EDT Office Visit [facility] Internal Medicine [address] [place] [address] Sergey Tyson MD 40 [place] [address] 04/21/2025 3:00 PM EDT Appointment [address] [address] Apple Talavera MD [address] [place] [address] 04/27/2025 8:30 AM EDT Office Visit [facility] at [address] [address] Apple Talavera MD [address] [place] [address] [email or web address] documented as of this encounter Visit Diagnoses Not on filedocumented in this encounter Additional Health Concerns Infection Onset Date Last Indicated Resolved Time CoV-Risk 05/07/2022 05/07/2022 05/18/2022 1:24 AM EDT Assessment Noted Time PHQ-2 Depression Total Score: 0 04/28/20 12:48 PM EDT documented as of this encounter Care Teams Saddle Maker Relationship Specialty Start Date End Date Karlos Lyons MD [address] [address] [email or web address] PCP - General Internal Medicine 07/14/14 05/07/21 Karlos Lyons MD [address] [place] [address] [email or web address] PCP - General Internal Medicine 05/08/21 05/09/22 Sergey Tyson MD [address] [place] [address] [email or web address] PCP - General Internal Medicine 05/10/22 Karlos Lyons MD [address] [place] [address] [email or web address] Insurance Assigned Provider 02/23/17 03/02/23 Omar Rocha MD [address] [place] [address] [email or web address] and [email or web address] 05/08/21 Sagar Leung MD [address] [facility], [address] [place] [address] [email or web address] Obstetrics and Gynecology 05/08/21 Yefri Hilliard MD [address] [place] [address] Endocrinology 05/08/21 Karlos Murry MD [address] [place] [address] [email or web address] Gastroenterology 02/27/22 Apple Talavera MD [address] [place] [address] [email or web address] Primary Oncologist Medical Oncology 02/19/23 Sergey Tyson MD [address] [place] [address] [email or web address] Insurance Assigned Provider 02/29/24 Mena Mcwilliams, RUSS [address] [place] [address] [email or web address] [employer] Hoop Riveting Machine Operator Helper 11/13/23 12/11/23 documented as of this encounter Additional Source Comments The information contained in this document represents components of the legal health record. It is not the complete legal health record.[facility]
--- OUTSIDE RECORDS SUMMARY | 2025-04-05 13:35 | XMS_ITS | Encounter Summary ---
Author Organization [facility] Address [facility] [address] [place] [address] Phone Care Team Providers Care Communications Agent Name Role Phone Omar Rocha MD Unavailable [phone] Sagar Leung MD Unavailable Yefri Hilliard MD Unavailable Karlos Murry MD Unavailable Sergey Tyson MD Primary Care Provider [phone] Apple Talavera MD Unavailable [phone] Sergey Tyson MD Unavailable Reason for Visit * Reason Onset Date Comments Referral 03/18/2025 Gastroenterology Encounter Details Date Type Department Care Team (Late st Contact Info) Description 03/18/2025 Telephone [facility] Internal Medicine 40 [place], [place] [phone] Sergey Tyson MD 40 [place] [address] [email or web address] Referral (Gastroenterology) Social History Tobacco Use Types [...] Pt states she called weeks ago for rattan worker referral but request says it was created on 03/18/25. She would like to know why this is not done yet. Please call [phone] documented in this encounter Plan of Treatment Upcoming Encounters Date Type Department Care Team (Late st Contact Info) Description 03/18/2024 Procedure Pass [address] [address] 04/13/2025 9:00 AM EDT Office [facility] Internal Medicine [address] [place] [address] Sergey Tyson MD [address] [place] [address] 04/21/2025 3:00 PM EDT Appointment [address] [address] Apple Talavera MD [address] [place] [address] [email or web address] 04/27/2025 8:30 AM EDT Office Visit [facility] at [address] [address] Apple Talavera MD [address] [place] [address] documented as of this encounter Visit Diagnoses Not on filedocumented in this encounter Additional Health Concerns Assessment Noted Time PHQ-9 Depression Total Score: 3 09/11/20 24 9:24 AM EDT PHQ-2 Depression Total Score: 1 09/11/20 24 9:24 AM EDT documented as of this encounter Care Teams Communications Agent Relationship Specialty Start Date End Date Sergey Tyson MD [address] [place] [address] PCP - General Internal Medicine 05/10/22 Omar Rocha MD [email or web address] 05/08/21 Sagar Leung MD [address] [place] [address] Obstetrics and Gynecology 05/08/21 Yefri Hilliard MD [address] [place] [address] Endocrinology 05/08/21 Karlos Murry MD [address] [place] [address] Gastroenterology 02/27/22 Apple Talavera MD [address] [place] [address] Primary Oncologist Medical Oncology 02/19/23 Sergey Tyson MD [address] [place] [address] [email or web address] Insurance Assigned Provider 02/29/24 documented as of this encounter Additional Source Comments The information contained in this document represents components of the legal health record. It is not the complete legal health record.[facility]
--- OUTSIDE RECORDS SUMMARY | 2025-04-05 13:36 | XMS_ITS | Encounter Summary ---
Author Organization [facility] Address Critical access hospital [employer] [facility] [address] [place] [address] Phone Care Team Providers Care Lean Manager Name Role Phone Omar Rocha MD Unavailable Sagar Leung MD Unavailable Yefri Hilliard MD Unavailable [phone] Karlos Murry MD Unavailable Sergey Tyson MD Primary Care Provider [phone] Apple Talavera MD Unavailable Sergey Tyson MD Unavailable Encounter Details Date Type Department Care Team (Latest Contact Info) Description 12/27/2023 Transcribe Orders Virtual Department [address] [place] [address] Karlos Murry MD [address] [place], [place] [phone] [email or web address] Weight loss (Primary Dx) Social History Tobacco [...] high school, GED, job training, learning the Lebanese language, technical skills, or developing parenting skills)? [...] with a working camera? Not on file Comments No Sex and Gender Information Value Date Recorded Sex Assigned at Female 05/05/2021 9:10 PM EDT Legal Sex Female 10:20 AM EDT Gender Identity Female 03/19/2021 10:12 AM EDT Sexual Orientation Straight 05/05/2021 9: 10 PM EDT documented as of this encounter Plan of Treatment Upcoming Encounters Date Type Department Care Team (Late st Contact Info) Description 03/18/2024 Procedure Pass [facility], [address] [address] 04/13/2025 9:00 AM EDT Office Visit [facility] Internal Medicine [address] [place] [address] Sergey Tyson MD 40 [place] [address] 04/21/2025 3:00 PM EDT Appointment [facility], [facility]- [address] [address] Apple Talavera MD [address] [place] [address] 04/27/2025 8:30 AM EDT Office Visit [facility] at [address] [address] Apple Talavera MD [address] [place] [address] documented as of this encounter Visit Diagnoses Diagnosis Weight loss- Primary Loss of weight documented in this encounter Additional Health Concerns Assessment Noted Time PHQ-2 Depression Total Score: 0 01/28/20 23 6:26 PM EST documented as of this encounter Care Teams Lean Manager Relationship Specialty Start Date End Date Sergey Tyson MD [address] [place] [address] PCP - General Internal Medicine 05/10/22 Omar Rocha MD [email or web address] Physical Medicine and Rehabilitation 05/08/21 Sagar Leung MD [address] [facility], [address] [place] [address] Obstetrics and Gynecology 05/08/21 Yefri Hilliard MD [address] [place] [address] Endocrinology 05/08/21 Karlos Murry MD [address] [place] [address] [email or web address] Gastroenterology 02/27/22 Apple Talavera MD [address] [place] [address] [email or web address] Primary Oncologist Medical Oncology 02/19/23 Sergey Tysno MD [address] [place] [address] [email or web address] Insurance Assigned Provider 02/29/24 documented as of this encounter Additional Source Comments The information contained in this document represents components of the legal health record. It is not the complete legal health record[facility]
--- OUTSIDE RECORDS SUMMARY | 2025-04-05 13:36 | XMS_ITS | Encounter Summary ---
Author Organization [facility] Address [address] [place] [address] [address] [place] [address] Phone Care Team Providers Care Exchange Trouble Shooter Name Role Phone Karlos Lyons MD Primary Care Provider Karlos Lyons MD Unavailable [phone] Omar Rocha MD Unavailable [phone] Sagar Leung MD Unavailable Karlos Lyons MD Primary Care Provider + [phone] Yefri Hilliard MD Unavailable [phone] Karlos Murry MD Unavailable [phone] Sergey Tyson MD Primary Care Provider [phone] Apple Talavera MD Unavailable [phone] Sergey Tyson MD Unavailable Mena Mcwilliams RN Unavailable [phone] Encounter Details Date Type Department Care Team (Late st Contact Info) Description 04/20/2021 Procedure Pass [facility] Admitting Dept Virtual Department [address] [place] [address] Social History Tobacco Use Types [...] Contact Info) Description 03/18/2024 Procedure Pass [address] [address] 04/13/2025 9:00 AM EDT Office Visit [facility] Internal Medicine [address] [place] [address] Sergey Tyson MD 40 [place] [address] 04/21/2025 3:00 PM EDT Appointment [address] [address] Apple Talavera MD [address] [place] [address] 04/27/2025 8:30 AM EDT Office Visit [facility] at [address] [address] Apple Talavera MD [address] [place] [address] documented as of this encounter Visit Diagnoses Not on filedocumented in this encounter Additional Health Concerns Infection Onset Date Last Indicated Resolved Time CoV-Risk 05/07/2022 05/07/2022 05/18/2022 1:24 AM EDT Assessment Noted Time PHQ-2 Depression Total Score: 0 04/28/20 12:48 PM EDT documented as of this encounter Care Teams Exchange Trouble Shooter Relationship Specialty Start Date End Date Karlos Lyons MD [address] [address] [email or web address] PCP - General Internal Medicine 07/14/14 05/07/21 Karlos Lyons MD [address] [place] [address] [email or web address] PCP - General Internal Medicine 05/08/21 05/09/22 Sergey Tyson MD [address] [place] [address] [email or web address] PCP - General Internal Medicine 05/10/22 Karlos Lyons MD [address] [place] [address] [email or web address] Insurance Assigned Provider 02/23/17 03/02/23 Omar Rocha MD [address] [place] [address] [email or web address] Physical Medicine and Rehabilitation 05/08/21 Sagar Leung MD 22 [facility], [address] [place] [address] [email or web address] Obstetrics and Gynecology 05/08/21 Yefri Hilliard MD [address] [place] [address] Endocrinology 05/08/21 Karlos Murry MD [address] [place] [address] [email or web address] Gastroenterology 02/27/22 Apple Talavera MD [address] [place] [address] [email or web address] Primary Oncologist Medical Oncology 02/19/23 Sergey Tyson MD [address] [place] [address] [email or web address] Insurance Assigned Provider 02/29/24 Mena Mcwilliams, RUSS [address] [place] [address] [email or web address] iCMP Bean Snipper 11/13/23 12/11/23 documented as of this encounter Additional Source Comments The information contained in this document represents components of the legal health record. It is not the complete legal health record.[facility]
--- OUTSIDE RECORDS SUMMARY | 2025-04-05 13:36 | XMS_ITS | Encounter Summary ---
Author Organization [facility] Address [facility] [address] [place] [address] Phone Care Team Providers Care Local Area Network Administrator Name Role Phone Karlos Lyons MD Unavailable Omar Rocha MD Unavailable Sagar Leung MD Unavailable Yefri Hilliard MD Unavailable Karlos Murry MD Unavailable [phone] Sergey Tyson MD Primary Care Provider [phone] Apple Talavera MD Unavailable [phone] Sergey Tyson MD Unavailable Mena Mcwilliams RN Unavailable [phone] Encounter Details Date Type Department Care Team (Late st Contact Info) Description 05/31/2022 Procedure Pass [place] Admitting Dept - Virtual Department 30 [place] [address] Social History Tobacco Use Types Packs/Day Years [...] high school, GED, job training, learning the Stateless language, technical skills, or developing parenting skills)? [...] st Contact Info) Description 03/18/2024 Procedure Pass [facility], [facility] 30 [place] [address] 04/13/2025 9:00 AM EDT Office Visit [facility] Internal Medicine 40 [place] [address] Sergey Tyson MD 40 [place] [address] 04/21/2025 3:00 PM EDT Appointment [facility], [facility]- [address] [address] Apple Talavera MD [address] [place] [address] [email or web address] 04/27/2025 8:30 AM EDT Office Visit [facility] at [address] [address] Apple Talavera MD [address] [place] [email or web address] documented as of this encounter Visit Diagnoses Not on filedocumented in this encounter Additional Health Concerns Assessment Noted Time PHQ-2 Depression Total Score: 2 05/05/20 22 10:17 AM EDT documented as of this encounter Care Teams Local Area Network Administrator Relationship Specialty Start Date End Date Sergey Tyson MD [address] [place] [address] [email or web address] PCP - General Internal Medicine 05/10/22 Karlos Lyons MD [address] [place] [address] [email or web address] Insurance Assigned Provider 02/23/17 03/02/23 Omar Rocha MD [address] [place] [address] [email or web address] Physical Medicine and Rehabilitation 05/08/21 Sagar Leung MD [address] [place] [address], [address] [place] [address] [email or web address] Obstetrics and Gynecology 05/08/21 Yefri Hilliard MD [address] [place] [address] Endocrinology 05/08/21 Karlos Murry MD [address] [place] [address] [email or web address] Gastroenterology 02/27/22 Apple Talavera MD [address] [place] [address] [email or web address] Primary Oncologist Medical Oncology 02/19/23 Sergey Tyson MD [address] [place] [address] Insurance Assigned Provider 02/29/24 Mena Mcwilliams, RN [address] [place] [address] [email or web address] iCMP Angio Technologist 11/13/23 12/11/23 documented as of this encounter Additional Source Comments The information contained in this document represents components of the legal health record. It is not the complete legal health record.[facility]
--- OUTSIDE RECORDS SUMMARY | 2025-04-05 13:36 | XMS_ITS | Encounter Summary ---
Author Organization [facility] Address [facility] [email or web address] [facility] [address] [place] [address] Phone Care Team Providers Care Regional Controller Name Role Phone Karlos Lyons MD Unavailable Omar Rocha MD Unavailable Sagar Leung MD Unavailable Karlos Lyons MD Primary Care Provider Yefri Hilliard MD Unavailable Karlos Murry MD Unavailable [phone] Sergey Tyson MD Primary Care Provider Apple Talavera MD Unavailable [phone] Sergey Tyson MD Unavailable Mena Mcwilliams RN Unavailable [phone] Encounter Details Date Type Department Care Team (Late st Contact Info) Description 05/25/2021 Procedure Pass [place] Admitting Dept - Virtual Department [address] [place] [address] Social History Tobacco Use Types Packs/Day Years [...] Contact Info) Description 03/18/2024 Procedure Pass [address] [address] 04/13/2025 9:00 AM EDT Office Visit [facility] Internal Medicine [address] [place] [address] Sergey Tyson MD 40 [place] [address] 04/21/2025 3:00 PM EDT Appointment [address] [address] Apple Talavera MD [address] [place] [address] 04/27/2025 8:30 AM EDT Office Visit [facility] at [address] [address] Apple Talavera MD [address] [place] [address] documented as of this encounter Visit Diagnoses Not on filedocumented in this encounter Additional Health Concerns Infection Onset Date Last Indicated Resolved Time CoV-Risk 05/07/2022 05/07/2022 05/18/2022 1:24 AM EDT Assessment Noted Time PHQ-2 Depression Total Score: 0 05/05/20 9:23 PM EDT documented as of this encounter Care Teams Regional Controller Relationship Specialty Start Date End Date Karlos Lyons MD [address] [address] [email or web address] PCP - General Internal Medicine 05/08/21 05/09/22 Sergey Tyson MD [address] [place] [address] [email or web address] PCP - General Internal Medicine 05/10/22 Karlos Lyons MD [address] [place] [address] [email or web address] Insurance Assigned Provider 02/23/17 03/02/23 Omar Rocha MD [address] [place] [address] [email or web address] Physical Medicine [email or web address] Rehabilitation 05/08/21 Sagar Leung MD [address] [place] [address] [email or web address] Obstetrics and Gynecology 05/08/21 Yefri Hilliard MD [address] [place] [address] Endocrinology 05/08/21 Karlos Murry MD [address] [place] [address] [email or web address] Gastroenterology 02/27/22 Apple Talavera MD [address] [place] [address] [email or web address] Primary Oncologist Medical Oncology 02/19/23 Sergey Tyson MD [address] [place] [address] [email or web address] Insurance Assigned Provider 02/29/24 Mena Mcwilliams, RN [address] [place] [address] [email or web address] iCMP Consumer Banker 11/13/23 12/11/23 documented as of this encounter Additional Source Comments The information contained in this document represents components of the legal health record. It is not the complete legal health record.[facility]
--- OUTSIDE RECORDS SUMMARY | 2025-04-05 13:36 | XMS_ITS | Encounter Summary ---
Author Organization [facility] Address [facility] ([place], [place]) [address] [place] [address] Phone Care Team Providers Care Lead Software Qa Engineer Name Role Phone Karlos Lyons MD Unavailable [phone] Omar Rocha MD Unavailable [phone] Sagar Leung MD Unavailable Karlos Lyons MD Primary Care Provider [phone] Yefri Hilliard MD Unavailable Karlos Murry MD Unavailable [phone] Sergey Tyson MD Primary Care Provider [phone] Apple Talavera MD Unavailable Sergey Tyson MD Unavailable Mena Mcwilliams RN Unavailable Encounter Details Date Type Department Care Team (Latest Contact Info) Description 05/08/2021 Transcribe Orders Virtual Department 30 [place], [place] [phone] Omar Rocha MD [address] [place] [address] [email or web address] Left wrist pain (Primary Dx) Social History [...] Contact Info) Description 03/18/2024 Procedure Pass [address] [address] 04/13/2025 9:00 AM EDT Office Visit [facility] Internal Medicine 40 [place] [address] Sergey Tyson MD [address] [place] [address] 04/21/2025 3:00 PM EDT Appointment [address] [address] Apple Talavera MD [address] [place] [address] [email or web address] 04/27/2025 8:30 AM EDT Office Visit [facility] at [address] [address] Apple Talavera MD [address] [place] [address] documented as of this encounter Results * [...] changes. Omar Rocha MD IMG XR UPPER EXTREMITY Final Result documented in this encounter Visit Diagnoses Diagnosis Left wrist pain- Primary Pain in joint, forearm Left wrist pain Pain in joint, forearm documented in this encounter Additional Health Concerns Infection Onset Date Last Indicated Resolved Time CoV-Risk 05/07/2022 05/07/2022 05/18/2022 1:24 AM EDT Assessment Noted Time PHQ-2 Depression Total Score: 0 05/05/20 21 9:23 PM EDT documented as of this encounter Care Teams Lead Software Qa Engineer Relationship Specialty Start Date End Date Karlos Lyons MD [address] [address] [email or web address] PCP - General Internal Medicine 05/08/21 05/09/22 Sergey Tyson MD [address] [place] [address] [email or web address] PCP - General Internal Medicine 05/10/22 Karlos Lyons MD [address] [place] [address] [email or web address] Insurance Assigned Provider 02/23/17 03/02/23 Omar Rocha MD [address] [place] [address] [email or web address] 05/08/21 Sagar Leung MD [address] [place] [address] [email or web address] Obstetrics and Gynecology 05/08/21 Yefri Hilliard MD [address] [place] [address] Endocrinology 05/08/21 Karlos Murry MD [address] [place] [address] [email or web address] Gastroenterology 02/27/22 Apple Talavera MD [address] [place] [address] Primary Oncologist Medical Oncology 02/19/23 Sergey Tyson MD [address] [place] [address] [email or web address] Insurance Assigned Provider 02/29/24 Mena Mcwilliams, RN [address] [place] [address] [email or web address] iCMP Research Program Manager 11/13/23 12/11/23 documented as of this encounter Additional Source Comments The information contained in this document represents components of the legal health record. It is not the complete legal health record.[facility]
--- OUTSIDE RECORDS SUMMARY | 2025-04-05 13:36 | XMS_ITS | Encounter Summary ---
Author Organization [facility] Address [address] [place] [address] [address] [place] [address] Phone Care Team Providers Care Cut Off Machine Helper Name Role Phone Karlos Lyons MD Primary Care Provider Karlos Lyons MD Unavailable [phone] Omar Rocha MD Unavailable [phone] Sagar Leung MD Unavailable Karlos Lyons MD Primary Care Provider [phone] Yefri Hilliard MD Unavailable [phone] Karlos Murry MD Unavailable [phone] Sergey Tyson MD Primary Care Provider [phone] Apple Talavera MD Unavailable [phone] Sergey Tyson MD Unavailable Mena Mcwilliams RN Unavailable [phone] Encounter Details Date Type Department Care Team (Latest Contact Info) Description 01/27/2018 Prep for Procedure [facility] [address] [place] [address] [phone] Apple Talavera MD [address] [place] [address] Malignant neoplasm of overlapping sites of left breast in female, estrogen receptor positive Social History Tobacco Use Types Packs/Day Years Used Date Smoking Tobacco: Former Cigarettes Comments:Quit smokin11/25 Comments Unknown Sex and Gender Information Value Date Recorded Sex Assigned at Female 05/05/2021 9:10 PM EDT Legal Sex Female 10:20 AM EDT Gender Identity Female 03/19/2021 10:12 AM EDT Sexual Orientation Straight 05/05/2021 9: 10 PM EDT documented as of this encounter Plan of Treatment Upcoming Encounters Date Type Department Care Team (Late st Contact Info) Description 03/18/2024 Procedure Pass [address] [address] 04/13/2025 9:00 AM EDT Office Visit [facility] Internal Medicine [address] [place] [address] Sergey Tyson MD [address] [place] [address] [email or web address] 04/21/2025 3:00 PM EDT Appointment [address] [address] Apple Talavera MD [address] [place] [address] 04/27/2025 8:30 AM EDT Office Visit [facility] at [address] [address] Apple Talavera MD [address] [place] [phone] documented as of this encounter Visit Diagnoses Diagnosis Malignant neoplasm of overlapping sites of left breast in female, estrogen receptor positive documented in this encounter Additional Health Concerns Infection Onset Date Last Indicated Resolved Time CoV-Risk 05/07/2022 05/07/2022 05/18/2022 1:24 AM EDT documented as of this encounter Care Teams Cut Off Machine Helper Relationship Specialty Start Date End Date Karlos Lyons MD [address] [address] [email or web address] PCP - General Internal Medicine 07/14/14 05/07/21 Karlos Lyons MD [address] [place] [address] [email or web address] PCP - General Internal Medicine 05/08/21 05/09/22 Sergey Tyson MD [address] [place] [address] [email or web address] PCP - General Internal Medicine 05/10/22 Karlos Lyons MD [address] [place] [address] [email or web address] Insurance Assigned Provider 02/23/17 03/02/23 Omar Rocha MD [address] [place] [address] [email or web address] Physical Medicine and Rehabilitation 05/08/21 Sagar Leung MD [address] [place] [address], [facility] [address] [place] [address] [email or web address] Obstetrics and Gynecology 05/08/21 Yefri Hilliard MD [address] [place] [address] Endocrinology 05/08/21 Karlos Murry MD [address] [place] [address] [email or web address] Gastroenterology 02/27/22 Apple Talavera MD [address] [place] [address] [email or web address] Primary Oncologist Medical Oncology 02/19/23 Sergey Tyson MD [address] [place] [address] [email or web address] Insurance Assigned Provider 02/29/24 Mena Mcwilliams, RN [address] [place] [address] [email or web address] iC[employer] Personal Financial Counselor 11/13/23 12/11/23 documented as of this encounter Additional Source Comments The information contained in this document represents components of the legal health record. It is not the complete legal health record.[facility]
--- OUTSIDE RECORDS SUMMARY | 2025-04-05 13:36 | XMS_ITS | Encounter Summary ---
Author Organization [facility] Address [facility] [employer] [facility] [address] [place] [address] Phone Care Team Providers Care Crtts Name Role Phone Omar Rocha MD Unavailable [phone] Sagar Leung MD Unavailable Yefri Hilliard MD Unavailable [phone] Karlos Murry MD Unavailable [phone] Sergey Tyson MD Primary Care Provider [phone] Apple Talavera MD Unavailable [phone] Sergey Tyson MD Unavailable Encounter Details Date Type Department Care Team (Late st Contact Info) Description 10/30/2024 Procedure Pass [facility], Ct Scan - [address] [address] Social History Tobacco Use Types Packs/Day Years [...] high school, GED, job training, learning the Czech language, technical skills, or developing parenting skills)? [...] st Contact Info) Description 03/18/2024 Procedure Pass [address] [address] 04/13/2025 9:00 AM EDT Office Visit [facility] Internal Medicine 40 [place] [address] Sergey Tyson MD [address] [place] [address] 04/21/2025 3:00 PM EDT Appointment [address] [address] Apple Talavera MD [address] [place] [address] 04/27/2025 8:30 AM EDT Office Visit [facility] at [address] [address] Apple Talavera MD [address] [place] [address] [email or web address] documented as of this encounter Visit Diagnoses Not on filedocumented in this encounter Additional Health Concerns Assessment Noted Time PHQ-9 Depression Total Score: 3 09/11/20 9:24 AM EDT PHQ-2 Depression Total Score: 1 09/11/20 9:24 AM EDT documented as of this encounter Care Teams Crtts Relationship Specialty Start Date End Date Sergey Tyson MD [address] [place] [address] PCP - General Internal Medicine 05/10/22 Omar Rocha MD [email or web address] Physical Medicine and Rehabilitation 05/08/21 Sagar Leung MD [address] [place] [address] [address] [place] [address] Obstetrics and Gynecology 05/08/21 Yefri Hilliard MD [address] [place] [address] Endocrinology 05/08/21 Karlos Murry MD [address] [place] [address] Gastroenterology 02/27/22 Apple Talavera MD [address] [place] [address] Primary Oncologist Medical Oncology 02/19/23 Sergey Tyson MD [address] [place] [address] Insurance Assigned Provider 02/29/24 documented as of this encounter Additional Source Comments The information contained in this document represents components of the legal health record. It is not the complete legal health record.[facility]
--- OUTSIDE RECORDS SUMMARY | 2025-04-05 13:36 | XMS_ITS | Encounter Summary ---
Author Organization [facility] Address [address] [place] [address] [address] [place] [address] Phone Care Team Providers Care Bench Assembler Electrical Name Role Phone Karlos Lyons MD Primary Care Provider Karlos Lyons MD Unavailable [phone] Omar Rocha MD Unavailable [phone] Sagar Leung MD Unavailable Karlos Lyons MD Primary Care Provider + [phone] Yefri Hilliard MD Unavailable [phone] Karlos Murry MD Unavailable [phone] Sergey Tyson MD Primary Care Provider Apple Talavera MD Unavailable [phone] Sergey Tyson MD Unavailable Mena Mcwilliams RN Unavailable [phone] Encounter Details Date Type Department Care Team (Late st Contact Info) Description 04/27/2021 Procedure Pass OR Admitting Dept - Virtual Department [address] [place], [place] [id number] Social History Tobacco Use Types Packs/Day Years [...] Contact Info) Description 03/18/2024 Procedure Pass [address] [address] 04/13/2025 9:00 AM EDT Office Visit [facility] Medical [facility] Internal Medicine [address] [place] [address] Sergey Tyson MD [address] [place] [address] 04/21/2025 3:00 PM EDT Appointment [address] [address] Apple Talavera MD [address] [place] [address] 04/27/2025 8:30 AM EDT Office Visit [facility] at [address] [address] Apple Talavera MD [address] [place] [address] documented as of this encounter Visit Diagnoses Not on filedocumented in this encounter Additional Health Concerns Infection Onset Date Last Indicated Resolved Time CoV-Risk 05/07/2022 05/07/2022 05/18/2022 1:24 AM EDT Assessment Noted Time PHQ-2 Depression Total Score: 0 04/28/20 12:48 PM EDT documented as of this encounter Care Teams Bench Assembler Electrical Relationship Specialty Start Date End Date Karlos Lyons MD [address] [address] [email or web address] PCP - General Internal Medicine 07/14/14 05/07/21 Karlos Lyons MD [address] [place] [address] [email or web address] PCP - General Internal Medicine 05/08/21 05/09/22 Sergey Tyson MD [address] [place] [address] [email or web address] PCP - General Internal Medicine 05/10/22 Karlos Lyons MD [address] [place] [address] [email or web address] Insurance Assigned Provider 02/23/17 03/02/23 Omar Rocha MD [address] [place] [address] [email or web address] Physical Medicine and Rehabilitation 05/08/21 Sagar Leung MD [address] [facility], [address] [place] [address] [email or web address] Obstetrics and Gynecology 05/08/21 Yefri Hilliard MD [address] [place] [address] Endocrinology 05/08/21 Karlos Murry MD [address] [place] [address] [email or web address] Gastroenterology 02/27/22 Apple Talavera MD [address] [place] [email or web address] Primary Oncologist Medical Oncology 02/19/23 Sergey Tyson MD [address] [place] [address] [email or web address] Insurance Assigned Provider 02/29/24 Mena Mcwilliams, RUSS [address] [place] [address] [email or web address] Third Rail Installer 11/13/23 12/11/23 documented as of this encounter Additional Source Comments The information contained in this document represents components of the legal health record. It is not the complete legal health record.[facility]
--- OUTSIDE RECORDS SUMMARY | 2025-04-05 13:36 | XMS_ITS | Clinical Summary ---
Author Organization [facility] Address [address] [facility] [address] [place] [address] Phone Care Team Providers Care Repairer Art Objects Name Role Phone Omar Rocha MD Unavailable [...] 04/19/2021 Triamcinolone Acetonide Swelling High 09/08/2020 Medications ondansetron (ZOFRAN-ODT) 4 MG disintegrating tablet Take [...] IN THE DAYTIME NEEDED. 120 tablet 2 11/30/19 Active cholecalciferol (VITAMIN D3) 2,000 unit capsule Take 2,000 Units by mouth daily. 09/08/20 Active omeprazole (PRILOSEC) 20 MG capsule Take 20 mg by mouth 2 (two) times a day. 12/27/19 Active carisoprodol (SOMA) 350 MG tablet TAKE 1 TAB 4 TIMES A DAY PARTIAL FILL PER PATIENT REQUEST MAY PRISONER CLASSIFICATION INTERVIEWER ON 02/14/2023 02/16/20 Active oxyCODONE HCl 10 mg TabIndications:man aged by Dr. Rocha at [facility] Take 10 mg by mouth 4 (four) times a day. And take 2 tablets at bedtime. Indications: managed by Dr. 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 90 capsule 1 09/28/20 24 Active fluticasone propionate (FLONASE) 50 mcg/actuation nasal sprayIndications:P ND (post-nasal drip) spray 2 sprays into each nostril every day 48 mL 3 11/12/20 24 Active losartan (COZAAR) 100 MG tabletIndications: Hypertension TAKE 1 TABLET BY MOUTH EVERY DAY 90 tablet 3 01/20/20 25 Active levothyroxine (SYNTHROID, LEVOTHROID) 137 MCG tabletIndications: Postablative hypothyroidism TAKE 1 TABLET BY MOUTH EVERY MORNING. 90 tablet 3 02/12/20 25 Active nystatin (MYCOSTATIN) 100,000 units/mL suspensionIndicati ons:Thrush Take 5 mL (500,000 Units total) by mouth 4 (four) times a day. 140 mL 03/23/20 25 Active albuterol 90 mcg/actuation inhalerIndications :Pneumonia of right lower lobe due to infectious organism Inhale 2 puffs into the lungs every 6 (six) hours as needed for wheezing. 18 g 03/26/20 25 Active azithromycin (ZITHROMAX) 250 MG tablet 03/30/20 25 Active azithromycin (ZITHROMAX) 500 MG tabletIndications: Pneumonia of left lower lobe due to infectious organism Take 1 tablet (500 mg total) by mouth daily. 5 tablet 11/12/20 24 025 Discontinu ed(No longer taking) clarithromycin (BIAXIN) 500 MG tabletIndications: Pneumonia of right lower lobe due to infectious organism Take 1 tablet (500 mg total) by mouth 2 (two) times a day for 7 days. 14 tablet 03/23/20 25 025 Active Problems Patient Care Coordination No te [...] such lets set the patient up with [facility] orthopedics to reassess if that is indeed [...] Will do the bone density scan at [facility]. In regards to night sweats and some [...] its possible that would overtake this from [facility] spine and sports but will cross that [...] and ADR Opted to recheck urine at [facility] lab due to [facility]'s protocol on sending out urine for culture [...] several adenomatous polyps. Vitamin D deficiency 12/01/2019 long-term current use of opiate analgesic 2018 Fasciculations [...] recent thyroid function studies were done at [facility] and this can be found in [...] (05/08/2021): bilateral, Seen by Dr Sims at [facility] Assessment & Plan (09/28/2024 10:42 AM [...] Description 04/01/2025 10:20 AM EDT Office Visit [facility] Internal Medicine [address] [place] [address] Dia Álvarez PA-C Pneumonia of both lower lobes due to infectious organism (Primary Dx); Generalized abdominal pain 03/30/2025 Orders Only [facility] Internal Medicine [address] [place] [address] Provider, MD Avelino 03/26/2025 11:20 AM EDT Office Visit [facility] Internal Medicine [address] [place] [address] Dia Álvarez PA-C Pneumonia of right lower lobe due to infectious organism (Primary Dx) 03/23/2025 2:27 PM EDT - 03/23/2025 11:59 PM EDT Hospital Encounter [facility], X-Ray - [address] [place] [address] Dia Álvarez PA-C Discharge Disposition: Home or Self Care 03/23/2025 1:00 PM EDT Office Visit [facility] Internal Medicine [address] [place] [address] Dia Álvarez PA-C Acute upper respiratory infection (Primary Dx); Thrush; Pneumonia of right middle lobe due to infectious organism; Pneumonia of right lower lobe due to infectious organism 03/23/[address] [facility] [address] [place] [address] Sabrina Talavera PA-C Results (After hours call); pneumonia 03/23/2025 Telephone [facility] Internal Medicine [address] [place] [address] Sergey Tyson MD Results 03/23/2025 Telephone [facility] Internal Medicine [address] [place] [address] Sergey Tyson MD Cough 03/18/2025 Telephone [facility] Internal [facility] [address] [place] [address] Sergey Tyson MD Speech Referral 03/18/2025 Telephone [facility] Internal [facility] [address] [place] [address] Sergey Tyson MD Referral (Gastroenterology) 02/11/2025 Refill [facility] Internal Medicine [address] [place] [address] Sergey Tyson MD Medication Refill 01/20/2025 Refill [facility] Internal Medicine [address] [place] [address] Sergey Tyson MD Medication Refill from Last 3 Months Immunizations Immunization Administration Dates Next Due COVID-19 (Pre-09/16) Pfizer Vaccine, mRNA, PF 02/21/2021,01/31/2021 COVID-19, Unspecified Formulation 11/07/2022 [id number] FORMULATION 10/07/2009 Influenza Quadrivalent MDCK Preservative Free [...] 7 1 - 1970 Smokeless Tobacco: Never Tobacco Cessation:Counseling [...] Contact Info) Description 03/18/2024 Procedure Pass [address] [address] 04/13/2025 9:00 AM EDT Office Visit [facility] Medical [facility] Internal Medicine [address] [place] [address] Sergey Tyson MD 40 [place] [address] 04/21/2025 3:00 PM EDT Appointment [address] [address] Apple Talavera MD [address] [place] [email or web address] 04/27/2025 8:30 AM EDT Office Visit [facility] at [address] [address] Apple Talavera MD [address] [place] [address] Health Maintenance Due Date Last Done Comments COLOGUARD 1995 FOBT 1995 SIGMOIDOSCOPY 1995 VIRTUAL COLONOSCOPY 1995 RSV VACCINE (1 - Risk 60-74 years 1-dose series) 2010 ZOSTER VACCINES (1 of 2) 10/13/2012 08/18/2012 Adult Td,Tdap Booster 06/15/2023 06/15/2013 COVID-19 VACCINE ( season) 2024 08/24/2023, 11/07/2022, 11/07/2022, Additional history exists FIT TEST 03/04/2025 03/04/2024 DEPRESSION SCREENING 09/11/2025 09/11/2024, 09/11/20 TSH LEVEL 09/28/2025 09/28/2024, 03/25, 12/20/2023, Additional history exists BLOOD PRESSURE 10/02/2025 04/01/2025 CREATININE LEVEL 10/30/2025 10/30/2024, 02/2024, 04/10/2024, Additional history exists POTASSIUM LEVEL 10/30/2025 10/30/2024, 1102/2024, 04/10/2024, Additional history exists MAMMOGRAM 03/12/2026 03/12/2024 [...] age to complete this topic MENINGOCOCCAL VACCINES (B) Aged Out N o longer eligible based on patient's age to complete this topic Medical Devices Implanted Type Area Credit Collection Specialist Device Identifier Shelf Expiration Date Model / [...] EDT Routine general medical examination at a [facility] care facility from Last 3 Months or Most Recently Relevant to Health Maintenance Results * Outside US Abdomen Report Only (03/30/2025 12:37 PM EDT) us Historical Provider MD BONDS US ABDOMEN Final Res ult * Outside XR??Chest Report Only (03/30/2025 11:37 AM EDT) us Historical Provider MD BONDS XR CHEST Final Res ult * XR CHEST PA AND LATERAL 2 VIEWS (03/23/2025 2:51 PM EDT) MGB IMG GALLEY COOK 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 Follow-up to resolution advised. [facility] Anatomical Region Laterality Modality Chest Computed Radiogr [...] initiated on 03/23/2025 3:11 PM, Message ID [id number]. Narrative 03/23/2025 3:11 PM EDT XR CHEST PA AND LATERAL 2 VIEWS Referring clinician's provided indication for this examination in [facility]: Cough COMPARISON: None available FINDINGS: Devices/Tubes/Lines: [...] clinician's provided indication for this examination in [facility]:Cough COMPARISON: None available FINDINGS: Devices/Tubes/Lines: Lower cervical [...] was initiated on 03/23/2025 3:11 PM,Message ID [id number]. Dia Álvarez PA-C IMG XR CHEST Final Result * POCT COVID-19 RT-PCR/Influenza A & B/RSV (Cepheid) (03/23/2025 1:10 PM EDT) Pathologist [facility] RSV PCR Negative Negative [facility] SARS-CoV-2 (COVID-19) Negative Negative [facility] Influenza A PCR Negative Negative [facility] Influenza B PCR Negative Negative [facility] 03/23/2025 1:10 PM EDT 03/23/2025 1:51 PM EDT Dia Álvarez PA-C POINT OF CARE TEST ORDERABLE S Final Result Performing Organization Address City/State/[facility] Co de Phone Number [facility] [address] [place] [address], [facility] [phone] * (ABNORMAL) Comprehensive metabolic panel (10/30/2024 9:57 AM EST) SODIUM 140 133 - 146 mmol/L [facility] POTASSIUM 4.3 3.3 - 5.1 mmol/L [facility] CHLORIDE 104 96 - 108 mmol/L [facility] CO2 27 21 - 35 mmol/L [facility] BUN 23(H) 6 - 19 mg/dL [facility] CREATININE 0.90 0.5 - 1.5 mg/dL [facility] GLUCOSE 92 70 - 99 mg/dL [facility] ALBUMIN 4.3 3.9 - 4.8 g/dL [facility] TOTAL PROTEIN 6.9 6.5 - 8.0 g/dL [facility] CALCIUM 9.3 8.4 - 10.3 mg/dL [facility] ALKALINE PHOSPHATASE 91 39 - 117 U/L [facility] TOTAL BILIRUBIN 0.3 0.0 - 1.2 mg/dL [facility] AST 20 0 - 37 U/L [facility] ALT 9 0 - 40 U/L [facility] GLOBULIN 2.6 1 - 4.8 g/dL [facility] EGFR 67 >59 mL/min/1.7 3m2 [facility] Comment:Estimated glomerular filtration rate calculated using the CKD-EPI refit equation. ANION GAP 13 10 - 20 mmol/L [facility] Blood 10/30/2024 9:57 AM EST 10/30/2024 10:02 AM EST Rachael Alberts KEY FILER LAB BLOOD ORDERABLES F inal Result Performing Organization Address City/[facility]/ZIP Co de Phone Number [address] [address] * TSH with reflex (09/28/2024 10:59 AM EST) TSH 0.91 0.27 - 4.20 uIU/mL [facility] Blood 09/28/2024 10:5 9 AM EST 09/28/2024 11:00 AM EST Sergey Tyson MD LAB BLOOD ORDERABLES Final Resul t Performing Organization Address [facility] Co de Phone Number [address] [address] * DXA Monitoring (05/02/2024 10:14 AM EDT) Anatomical Region Laterality Modality Bone Density Bone Density Sergey Tyson MD IMG BD BONE DENSITY DEXA Final R esult * Fecal immunochemical test x1 (FIT) (03/04/2024 9:15 PM EDT) Immuno Fecal Occult Negative Negative [facility] Stool (Stool) 03/04/2024 9:1 5 PM EDT 03/06/2024 10:00 AM EDT Adan Hoffman MD BODY FLUIDS AND STOOLS ORD ERABLES Final Result Performing Organization Address [facility]/ZIP Co de Phone Number [address] [address] * ENDOSCOPY, COLON (09/13/2022 11:58 AM EDT) Narrative Transcriptions Adan Hoffman MD - 09/13/2022 11:58 AM EDT Patient Name: Kaylyn Doan Attending MD:: ADAN HOFFMAN MD Procedure Date: 09/13/2022 11:58AM Date of : 1950 Age: 72 Admit Type: Outpatient Gender: Female Room: [place] [address] Referring MD: Sergey Tyson MD Exam Type: [...] 11:58 AM Procedure Code(s): --- Professional --- 94826, Colonoscopy, flexible; with removal of tumor(s), polyp(s), or other lesion(s) by snare technique 80558, 59, Colonoscopy, flexible; with biopsy, single or multiple --- Technical --- 43467, Colonoscopy, flexible; with removal of tumor(s), polyp(s), or other lesion(s) by snare technique 31027, 59, Colonoscopy, flexible; with biopsy, single or multiple Diagnosis Code(s): --- Professional --- K63.5, Polyp of colon Z86.010, Personal history of colonic polyps K64.9, Unspecified hemorrhoids Q43.8, Other specified congenital malformations of intestine --- Technical --- K63.5, Polyp of colon Z86.010, Personal history of colonic polyps K64.9, Unspecified hemorrhoids Q43.8, Other specified congenital malformations of intestine CPT copyright 2020 [employer]. All rights reserved. The codes documented in this report are preliminary and upon registered land surveyor reviewmay be revised to meet current compliance requirements. Procedure Date: 09/13/2022 11:58:[address] [place] [address] [place] Sergey Tyson MD GI PROCEDURE ORDERABLES Final Re sult * Hepatitis C antibody, qualitative (05/11/2021 9:13 AM EDT) HCV NON-REACTIV E NON-REACTI VE [facility] Blood 05/11/2021 9:13 AM EDT 05/11/2021 9:19 AM EDT us Adan Lyons MD LAB BLOOD ORDERABLES Final Result [facility] [address] [place] [address] * (ABNORMAL) Lipid panel (05/11/2021 9:13 AM EDT) HDL 68 mg/dL [facility] Comment: ? Interpretation <40 mg/dL: Low HDL cholesterol (major risk factor for CHD) Greater than or equal to 60 mg/dL: High HDL cholesterol ( negative risk factor for CHD) HDL - cholesterol is affected by a number of factors, e.g. smoking, excerise, hormones, sex and age. CHOLESTEROL 217 0 - 240 mg/dL [facility] TRIGLYCERIDES 113 30 - 160 mg/dL [facility] LDL 126 50 - 129 mg/dL [facility] Comment: LDL levels in terms of risk for coronary heart disease: <100 mg/dL: Optimal 100-129 mg/dL: Near or above optimal 130-159 mg/dL: Borderline high 160-189 mg/dL: High >190 mg/dL: Very High CARDIAC RISK RATIO 3.2(L) 3.3 - 4.4 C [facility] Blood 05/11/2021 9:13 AM EDT 05/11/2021 9:19 AM EDT Adan Lyons MD LAB BLOOD ORDERABLES Final Result [facility] [address] [place] [address] from Last 3 Months or Most Recently Relevant to Health Maintenance Insurance [facility] MEDICARE PART A & B [facility] MEDICARE PART A & B [facility] MEDIC[facility] PART A & B [facility] MEDICARE PART A & [place] [id number] [facility] MEDICARE PART A [place] [id number] [facility] MEDICARE PART A & B MEDICARE PART A & B [facility] MED[facility]ARE PART A & B [facility] MEDICARE PART A & B [facility] INSURANCE [facility] FEDERAL Care Teams Repairer Art Objects Relationship Specialty Start Date End Date Sergey Tyson MD [address] [facility] [place] [address] [email or web address] PCP - General Internal Medicine 05/10/22 Omar Rocha MD [email or web address] Physical Medicine and Rehabilitation 05/08/21 Sagar Leung MD [address] [place] [address], [facility] [address] [place] [address] [email or web address] Obstetrics and Gynecology 05/08/21 Yefri Hilliard MD [address] [place] [address] Endocrinology 05/08/21 Adan Hoffman MD [address] [place] [address] [email or web address] Gastroenterology 02/27/22 Apple Talavera MD [address] [place] [address] [email or web address] Primary Oncologist Medical Oncology 02/19/23 Sergey Tyson MD [address] [place] [address] [email or web address] Insurance Assigned Provider 02/29/24 Additional Source Comments The information contained in this document represents components of the legal health record. It is not the complete legal health record.[facility]
--- OUTSIDE RECORDS SUMMARY | 2025-04-05 13:36 | XMS_ITS | Encounter Summary ---
Author Organization [facility] Address [facility] Gift Card [facility] [address] [place] [address] Phone Care Team Providers Care Internet Architect Name Role Phone Omar Rocha MD Unavailable Sagar Leung MD Unavailable Yefri Hilliard MD Unavailable Karlos Murry MD Unavailable Sergey Tyson MD Primary Care Provider Apple Talavera MD Unavailable Sergey Tyson MD Unavailable Encounter Details Date Type Department Care Team (Latest Contact Info) Description 12/23/2024 Transcribe Orders Virtual Department [address] [place] [address] Omar Rocha MD [address] [place] [address] [email or web address] Left hip pain (Primary Dx) Social History [...] high school, GED, job training, learning the Colombian language, technical skills, or developing parenting skills)? [...] Contact Info) Description 03/18/2024 Procedure Pass [address] [address] 04/13/2025 9:00 AM EDT Office Visit [facility] Medical [facility] Internal Medicine [address] [place] [address] Sergey Tyson MD [address] [place] [address] 04/21/2025 3:00 PM EDT Appointment [address] [address] Apple Talavera MD [address] [place] [address] 04/27/2025 8:30 AM EDT Office Visit [facility] Center at [address] [address] Apple Talavera MD [address] [place] [phone] documented as of this encounter Results * [...] clinician's provided indication for this examination in [facility]: Outside Radiology Order; Pain in left hip [...] imaging of hardware overlying the lumbarsacral spine. us Omar Rohca MD IMG XR PELVIS Final R esult documented in this encounter Visit Diagnoses Diagnosis [...] documented as of this encounter Care Teams Internet Architect Relationship Specialty Start Date End Date Sergey Tyson MD [address] [place] [address] [email or web address] PCP - General Internal Medicine 05/10/22 Omar Rocha MD [email or web address] Physical Medicine and Rehabilitation 05/08/21 Sagar Leung MD [address] [place] [address], [address] [place] [address] Obstetrics and Gynecology 05/08/21 Yefri Hilliard MD [address] [place] [address] Endocrinology 05/08/21 Karlos Murry MD [address] [place] [address] Gastroenterology 02/27/22 Apple Talavera MD [address] [place] [address] Primary Oncologist Medical Oncology 02/19/23 Sergey Tyson MD [address] [place] [phone] Insurance Assigned Provider 02/29/24 documented as of this encounter Additional Source Comments The information contained in this document represents components of the legal health record. It is not the complete legal health record.[facility]
--- OUTSIDE RECORDS SUMMARY | 2025-04-05 13:37 | XMS_ITS | Encounter Summary ---
Author Organization [facility] Address [address] [place] [address] [address] [place] [address] Phone Care Team Providers Care Coil Shaper Name Role Phone Omar Rocha MD Unavailable Sagar Leung MD Unavailable Yefri Hilliard MD Unavailable [phone] Karlos Murry MD Unavailable [phone] Sergey Tyson MD Primary Care Provider Apple Talavera MD Unavailable [phone] Sergey Tyson MD Unavailable Reason for Referral * Outpatient Procedure - Closed Specialty Diagnoses / Procedures Referred By Jessica balbuena Referred To Contact Radiology Diagnoses Weight loss Procedures US Abdomen Arteries Duplex Limited Karlos Murry MD [address] [place] [address] Phone: tel: fax: mailto: Referral ID Status Reason Start Date Expiration Date Visits Re quested Visits Authorized [id number] Closed 02/03/2024 1 1 Encounter Details Date Type Department Care Team (Latest Contact Info) Description 02/03/2024 Transcribe Orders Virtual Department 30 [place] [address] Karlos Murry MD [address] [place] [address] Weight loss (Primary Dx) Social History Tobacco [...] high school, GED, job training, learning the Brazilian language, technical skills, or developing parenting skills)? [...] Contact Info) Description 03/18/2024 Procedure Pass [address] [address] 04/13/2025 9:00 AM EDT Office Visit [facility] Internal Medicine [address] [place] [address] Sergey Tyson MD 40 [place] [address] 04/21/2025 3:00 PM EDT Appointment [address] [address] Apple Talavera MD [address] [place] [email or web address] 04/27/2025 8:30 AM EDT Office Visit [facility] at [address] [address] Apple Talavera MD [address] [place] [address] [email or web address] documented as of this encounter Results [...] superior mesenteric artery. Noevidence of mesenteric ischemia. us Karlos Murry MD IMG US ABDOMEN Final Resu lt documented in this encounter Visit Diagnoses Diagnosis Weight loss- Primary Loss of weight Weight loss Loss of weight documented in this encounter Additional Health Concerns Assessment Noted Time PHQ-2 Depression Total Score: 0 01/28/20 23 6:26 PM EST documented as of this encounter Care Teams Coil Shaper Relationship Specialty Start Date End Date Sergey Tyson MD 40 [place] [address] PCP - General Internal Medicine 05/10/22 Omar Rocha MD [email or web address] Physical Medicine and Rehabilitation 05/08/21 Sagar Leung MD [address] [place] [address], [facility] [address] [place] [address] Obstetrics and Gynecology 05/08/21 Yefri Hilliard MD [address] [place] [address] Endocrinology 05/08/21 Karlos Murry MD [address] [place] [address] Gastroenterology 02/27/22 Apple Talavera MD [address] [place] [address] Primary Oncologist Medical Oncology 02/19/23 Sergey Tyson MD [address] [place] [address] Insurance Assigned Provider 02/29/24 documented as of this encounter Additional Source Comments The information contained in this document represents components of the legal health record. It is not the complete legal health record.[facility]
--- OUTSIDE RECORDS SUMMARY | 2025-04-05 13:37 | XMS_ITS | Encounter Summary ---
Author Organization [facility] Address [address] [place] [address] [address] [place] [address] Phone Care Team Providers Care Software Verification Engineer Name Role Phone Karlos Lyons MD Primary Care Provider Karlos Lyons MD Unavailable [phone] Omar Rocha MD Unavailable [phone] Sagar Leung MD Unavailable Karlos Lyons MD Primary Care Provider [phone] Yefri Hilliard MD Unavailable [phone] Karlos Murry MD Unavailable [phone] Sergey Tyson MD Primary Care Provider [phone] Apple Talavera MD Unavailable [phone] Sergey Tyson MD Unavailable Mena Mcwilliams RN Unavailable [phone] Reason for Referral * MRI/CAT Scan - Closed Specialty Diagnoses / Procedures Referred By Jessica balbuena Referred To Contact Radiology Diagnoses Lumbar radiculopathy 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 Procedures MRI Lumbar Spine Omar Rocha MD Phone: tel: fax: mailto:[email or web address] Referral ID Status Reason Start Date Expiration Date Visits Re quested Visits Authorized [id number] Closed 10/07/2019 10/06/2020 1 1 Encounter Details Date Type Department Care Team (Latest Contact Info) Description 10/07/2019 Ancillary Orders Virtual Department [address] [place] [address] Omar Rocha MD [address] [place] [address] Lumbar radiculopathy; Displacement of intervertebral disc of [...] Contact Info) Description 03/18/2024 Procedure Pass [address] [address] 04/13/2025 9:00 AM EDT Office Visit [facility] [place] Internal Medicine 40 [place] [address] Sergey Tyson MD 40 [place] [address] 04/21/2025 3:00 PM EDT Appointment [address] [address] Apple Talavera MD [address] [place] [address] [email or web address] 04/27/2025 8:30 AM EDT Office Visit [facility] Center at [facility] 30 [place] [address] Apple Talavera MD 30 [place] [address] [email or web address] documented as of this encounter Results * [...] renal lesions that appear similar in size [id number]. Posterior paraspinal soft tissues are unremarkable. IMPRESSION: Multilevel degenerative changes as described above, progressed from 2009study. Moderate canal stenosis at L3-L4. Moderate neuroforaminal stenosison the left at L4-L5 associated with mild compression of the left Q9ewbosrd nerve root. POS - [id number] Omar Rocha MD IMG MR XSPECIALTY Final Result documented in this encounter Visit [...] documented as of this encounter Care Teams Software Verification Engineer Relationship Specialty Start Date End Date Karlos Lyons MD [address] [address] [email or web address] PCP - General Internal Medicine 07/14/14 05/07/21 Karlos Lyons MD [address] [address] [email or web address] PCP - General Internal Medicine 05/08/21 05/09/22 Sergey Tyson MD [address] [place] [address] [email or web address] PCP - General Internal Medicine 05/10/22 Karlos Lyons MD [address] [address] [email or web address] Insurance Assigned Provider 02/23/17 03/02/23 Omar Rocha MD [address] [place] [address] [email or web address] Physical Medicine and Rehabilitation 05/08/21 Sagar Leung MD [address] [place] [address] [email or web address] Obstetrics and Gynecology 05/08/21 Yefri Hilliard MD [address] [place] [address] Endocrinology 05/08/21 Karlos Murry MD [address] [place] [address] [email or web address] Gastroenterology 02/27/22 Apple Talavera MD [address] [place] [address] [email or web address] Primary Oncologist Medical Oncology 02/19/23 Sergey Tyson MD [address] [place] [address] [email or web address] Insurance Assigned Provider 02/29/24 Mena Mcwilliams RN [address] [place] [address] [email or web address] iCMP Desk Operator 11/13/23 12/11/23 documented as of this encounter Additional Source Comments The information contained in this document represents components of the legal health record. It is not the complete legal health record.[facility]
--- OUTSIDE RECORDS SUMMARY | 2025-04-05 13:37 | XMS_ITS | Encounter Summary ---
Author Organization [facility] Address [facility] [address] [place] [address] Phone Care Team Providers Care Head Men'S Tennis Coach Name Role Phone Karlos Lyons MD Unavailable Omar Rocha MD Unavailable Sagar Leung MD Unavailable Karlos Lyons MD Primary Care Provider Yefri Hilliard MD Unavailable Karlos Murry MD Unavailable [phone] Sergey Tyson MD Primary Care Provider [phone] Apple Talavera MD Unavailable [phone] Sergey Tyson MD Unavailable Mena Mcwilliams RN Unavailable [phone] Encounter Details Date Type Department Care Team (Late st Contact Info) Description 02/22/2022 Procedure Pass [facility], [address] [address] Social History Tobacco Use Types Packs/Day Years [...] st Contact Info) Description 03/18/2024 Procedure Pass [address] [address] 04/13/2025 9:00 AM EDT Office [facility] Internal Medicine 40 [place] [address] Sergey Tyson MD [address] [place] [address] 04/21/2025 3:00 PM EDT Appointment [address] [address] Apple Talavera MD [address] [place] [address] 04/27/2025 8:30 AM EDT Office Visit [facility] at [address] [address] Apple Talavera MD [address] [place] [address] documented as of this encounter Visit Diagnoses Not on filedocumented in this encounter Additional Health Concerns Infection Onset Date Last Indicated Resolved Time CoV-Risk 05/07/2022 05/07/2022 05/18/2022 1:24 AM EDT Assessment Noted Time PHQ-2 Depression Total Score: 0 05/05/20 9:23 PM EDT documented as of this encounter Care Teams Head Men'S Tennis Coach Relationship Specialty Start Date End Date Karlos Lyons MD [address] [address] [email or web address] PCP - General Internal Medicine 05/08/21 05/09/22 Sergey Tyson MD [address] [place] [address] [email or web address] PCP - General Internal Medicine 05/10/22 Karlos Lyons MD [address] [place] [address] [email or web address] Insurance Assigned Provider 02/23/17 03/02/23 Omar Rocha MD [address] [place] [address] [email or web address] Physical Medicine and Rehabilitation 05/08/21 Sagar Leung MD [address] [place] [address] [email or web address] Obstetrics and Gynecology 05/08/21 Yefri Hilliard MD [address] [place] [address] Endocrinology 05/08/21 Karlos Murry MD [address] [place] [address] [email or web address] Gastroenterology 02/27/22 Apple Talavera MD [address] [place] [address] [email or web address] Primary Oncologist Medical Oncology 02/19/23 Sergey Tyson MD [address] [place] [address] [email or web address] Insurance Assigned Provider 02/29/24 Mena Mcwilliams, RN [address] [place] [address] [email or web address] iCMP Counter Supply Worker 11/13/23 12/11/23 documented as of this encounter Additional Source Comments The information contained in this document represents components of the legal health record. It is not the complete legal health record.[facility]
--- OUTSIDE RECORDS SUMMARY | 2025-04-05 13:37 | XMS_ITS | Encounter Summary ---
Author Organization [facility] Address [facility] [address] [place] [address] Phone Care Team Providers Care Outsoles Channel Opener Name Role Phone Karlos Lyons MD Unavailable Omar Rocha MD Unavailable Sagar Leung MD Unavailable Yefri Hilliard MD Unavailable Karlos Murry MD Unavailable [phone] Sergey Tyson MD Primary Care Provider Apple Talavera MD Unavailable [phone] Sergey Tyson MD Unavailable Mena Mcwilliams RN Unavailable [phone] Encounter Details Date Type Department Care Team (Late st Contact Info) Description 02/27/2023 Procedure Pass [facility] 30 [place] [address] Social History Tobacco Use Types Packs/Day Years [...] high school, GED, job training, learning the Salvadorean language, technical skills, or developing parenting skills)? [...] basis, and looking for work? No 01/27/2023 Comments No Sex and Gender Information Value Date Recorded Sex Assigned at Female 05/05/2021 9:10 PM EDT Legal Sex Female 10:20 AM EDT Gender Identity Female 03/19/2021 10:12 AM EDT Sexual Orientation Straight 05/05/2021 9: 10 PM EDT documented as of this encounter Plan of Treatment Upcoming Encounters Date Type Department Care Team (Late st Contact Info) Description 03/18/2024 Procedure Pass [facility] [address] [place] [address] 04/13/2025 9:00 AM EDT Office Visit [facility] Internal Medicine 40 [place] [address] Sergey Tyson MD 40 [place] [address] [email or web address] 04/21/2025 3:00 PM EDT Appointment [facility], [address] [address] Apple Talavera MD [address] [place] [address] [email or web address] 04/27/2025 8:30 AM EDT Office Visit [facility] at [address] [address] Apple Talavera MD [address] [place] [address] [email or web address] documented as of this encounter Visit Diagnoses Not on filedocumented in this encounter Additional Health Concerns Assessment Noted Time PHQ-2 Depression Total Score: 0 01/28/20 23 6:26 PM EST documented as of this encounter Care Teams Outsoles Channel Opener Relationship Specialty Start Date End Date Sergey Tyson MD 40 [place] [address] [email or web address] PCP - General Internal Medicine 05/10/22 Karlos Lyons MD [address] [place] [address] [email or web address] Insurance Assigned Provider 02/23/17 03/02/23 Omar Rocha MD [address] [place] [address] [email or web address] Physical Medicine and Rehabilitation 05/08/21 Sagar Leung MD [address] [place] [address], [address] [place] [address] [email or web address] Obstetrics and Gynecology 05/08/21 Yefri Hilliard MD [address] [place] [address] Endocrinology 05/08/21 Karlos Murry MD [address] [place] [address] [email or web address] Gastroenterology 02/27/22 Apple Talavera MD [address] [place] [address] Primary Oncologist Medical Oncology 02/19/23 Sergey Tyson MD [address] [place] [address] [email or web address] Insurance Assigned Provider 02/29/24 Mena Mcwilliams, RN [address] [place] [address] [email or web address] iCMP Rn Endoscopy 11/13/23 12/11/23 documented as of this encounter Additional Source Comments The information contained in this document represents components of the legal health record. It is not the complete legal health record.[facility]
--- OUTSIDE RECORDS SUMMARY | 2025-04-05 13:37 | XMS_ITS | Encounter Summary ---
Author Organization [facility] Address [address] [place], [place] [address] [place] [address] Phone Care Team Providers Care Hide Worker Name Role Phone Karlos Lyons MD Primary Care Provider Karlos Lyons MD Unavailable [phone] Omar Rocha MD Unavailable [phone] Sagar Leung MD Unavailable Karlos Lyons MD Primary Care Provider [phone] Yefri Hilliard MD Unavailable [phone] Karlos Murry MD Unavailable [phone] Sergey Tyson MD Primary Care Provider Apple Talavera MD Unavailable [phone] Sergey Tyson MD Unavailable Mena Mcwilliams RN Unavailable [phone] Encounter Details Date Type Department Care Team (Late st Contact Info) Description 09/04/2019 Ancillary Orders [facility] Internal Medicine [address] [place] [address] Karlos Lyons MD [address] [place] [address] [email or web address] Breast screening Social History Tobacco Use [...] Contact Info) Description 03/18/2024 Procedure Pass [address] [address] 04/13/2025 9:00 AM EDT Office Visit [facility] Internal Medicine 40 [place] [address] Sergey Tyson MD 40 [place] [address] [email or web address] 04/21/2025 3:00 PM EDT Appointment [address] [address] Apple Talavera MD [address] [place] [address] 04/27/2025 8:30 AM EDT Office Visit [facility] at [address] [address] Apple Talavera MD [address] [place] [address] [email or web address] documented as of this encounter Results [...] lowers the sensitivity of mammography. POS - [id number] Narrative 09/04/2019 11:32 AM EDT Full-field digital [...] whichlowers the sensitivity of mammography. POS - [id number] Karlos Lyons MD IMG MG EXAMS Final Resu lt documented in this encounter Visit Diagnoses Diagnosis Breast screening Breast screening, unspecified Breast screening Breast screening, unspecified documented in this encounter Additional Health Concerns Infection Onset Date Last Indicated Resolved Time CoV-Risk 05/07/2022 05/07/2022 05/18/2022 1:24 AM EDT Assessment Noted Time PHQ-2 Depression Total Score: 0 10/20/20 18 10:00 AM EST documented as of this encounter Care Teams Hide Worker Relationship Specialty Start Date End Date Karlos Lyons MD [address] [place] [address] [email or web address] PCP - General Internal Medicine 07/14/14 05/07/21 Karlos Lyons MD [address] [place] [address] [email or web address] PCP - General Internal Medicine 05/08/21 05/09/22 Sergey Tyson MD [address] [place] [address] [email or web address] PCP - General Internal Medicine 05/10/22 Karlos Lyons MD [address] [place] [address] [email or web address] Insurance Assigned Provider 02/23/17 03/02/23 Omar Rocha MD [address] [place] [address] [email or web address] Physical Medicine and Rehabilitation 05/08/21 Sagar Leung MD [address] [facility] [address] [place] [address] [email or web address] Obstetrics and Gynecology 05/08/21 Yerfi Hilliard MD [address] [place] [address] Endocrinology 05/08/21 Karlos Murry MD [address] [place] [address] [email or web address] Gastroenterology 02/27/22 Apple Talavera MD [address] [place] [email or web address] Primary Oncologist Medical Oncology 02/19/23 Sergey Tyson MD [address] [place] [address] [email or web address] Insurance Assigned Provider 02/29/24 Mena Mcwilliams, RN [address] [place] [phone] [email or web address] iCMP Hair Baler 11/13/23 12/11/23 documented as of this encounter Additional Source Comments The information contained in this document represents components of the legal health record. It is not the complete legal health record.[facility]
--- OUTSIDE RECORDS SUMMARY | 2025-04-05 13:37 | XMS_ITS | Encounter Summary ---
Author Organization [facility] Address [address] [place] [address] [address] [place] [address] Phone Care Team Providers Care Filter Washer Name Role Phone Karlos Lyons MD Primary Care Provider Karlos Lyons MD Unavailable [phone] Omar Rocha MD Unavailable [phone] Sagar Leung MD Unavailable Karlos Lyons MD Primary Care Provider + [phone] Yefri Hilliard MD Unavailable [phone] Karlos Murry MD Unavailable [phone] Sergey Tyson MD Primary Care Provider Apple Talavera MD Unavailable [phone] Sergey Tyson MD Unavailable Mena Mcwilliams RN Unavailable [phone] Encounter Details Date Type Department Care Team (Late st Contact Info) Description 12/02/2017 Ancillary Orders [facility] [address] [place] [address] Omar Rocha MD [address] [place] [address] [email or web address] Pain of right forearm Social History Tobacco [...] Contact Info) Description 03/18/2024 Procedure Pass [address] [address] 04/13/2025 9:00 AM EDT Office Visit [facility] Internal Medicine 40 [place] [address] Sergey Tyson MD 40 [place] [address] 04/21/2025 3:00 PM EDT Appointment [address] [address] Apple Talavera MD [address] [place] [id number] 04/27/2025 8:30 AM EDT Office Visit [facility] at [address] [address] Apple Talavera MD [address] [place] [phone] documented as of this encounter Results * [...] lateral pain distal forearm POS - [id number] us Omar Rocha MD IMG XR UPPER EXTREMITY Final Result documented in this encounter Visit Diagnoses Diagnosis Pain of right forearm Pain of right forearm documented in this encounter Additional Health Concerns Infection Onset Date Last Indicated Resolved Time CoV-Risk 05/07/2022 05/07/2022 05/18/2022 1:24 AM EDT documented as of this encounter Care Teams Filter Washer Relationship Specialty Start Date End Date Karlos Lyons MD [address] [address] [email or web address] PCP - General Internal Medicine 07/14/14 05/07/21 Karlos Lyons MD [address] [address] [email or web address] PCP - General Internal Medicine 05/08/21 05/09/22 Sergey Tyson MD [address] [place] [address] [email or web address] PCP - General Internal Medicine 05/10/22 Karlos Lyons MD [address] [address] [email or web address] Insurance Assigned Provider 02/23/17 03/02/23 Omar Rocha MD [address] [address] [email or web address] Physical Medicine and [email or web address] 05/08/21 Sagar Leung MD [address] [place] [address] [email or web address] Obstetrics and Gynecology 05/08/21 Yefri Hilliard MD [address] [place] [address] Endocrinology 05/08/21 Karlos Murry MD [address] [place] [address] [email or web address] Gastroenterology 02/27/22 Apple Talavera MD [address] [place] [address] [email or web address] Primary Oncologist Medical Oncology 02/19/23 Sergey Tyson MD [address] [place] [address] [email or web address] Insurance Assigned Provider 02/29/24 Mena Mcwilliams, RN [address] [place], [place] [phone] [email or web address] iCMP Manager Military 11/13/23 12/11/23 documented as of this encounter Additional Source Comments The information contained in this document represents components of the legal health record. It is not the complete legal health record.[facility]
--- OUTSIDE RECORDS SUMMARY | 2025-04-05 13:37 | XMS_ITS | Encounter Summary ---
Author Organization [facility] Address Formerly [facility] [employer] [facility] [address] [place] [address] Phone Care Team Providers Care Building Construction Teacher Name Role Phone Karlos Lyons MD Unavailable Omar Rocha MD Unavailable Sagar Leung MD Unavailable Karlos Lyons MD Primary Care Provider [phone] Yefri Hilliard MD Unavailable Karlos Murry MD Unavailable [phone] Sergey Tyson MD Primary Care Provider Apple Talavera MD Unavailable Sergey Tyson MD Unavailable Mena Mcwilliams RN Unavailable [phone] Encounter Details Date Type Department Care Team (Latest Contact Info) Description 10/25/2021 Transcribe Orders Virtual Department 30 [place], [place] [phone] Karlos Lyons MD [address] [phone] [email or web address] Breast screening (Primary Dx) Social History [...] Contact Info) Description 03/18/2024 Procedure Pass [address] [address] 04/13/2025 9:00 AM EDT Office Visit [facility] Internal Medicine [address] [place] [address] Sergey Tyson MD [address] [place] [address] [email or web address] 04/21/2025 3:00 PM EDT Appointment [address] [address] Apple Talavera MD [address] [place] [address] 04/27/2025 8:30 AM EDT Office Visit [facility] at [address] [address] Apple Talavera MD [address] [place] [address] [email or web address] documented as of this encounter Results [...] mammography. Karlos Lyons MD IMG MG EXAMS Final [...] documented as of this encounter Care Teams Building Construction Teacher Relationship Specialty Start Date End Date Karlos Lyons MD [address] [address] [email or web address] PCP - General Internal Medicine 05/08/21 05/09/22 Sergey Tyson MD [address] [place] [address] [email or web address] PCP - General Internal Medicine 05/10/22 Karlos Lyons MD [address] [place] [address] [email or web address] Insurance Assigned Provider 02/23/17 03/02/23 Omar Rocha MD [address] [place] [address] [email or web address] Physical Medicine [email or web address] 05/08/21 Sagar Leung MD [address] [place] [address] [address] [place] [address] [email or web address] Obstetrics and Gynecology 05/08/21 Yefri Hilliard MD [address] [place] [address] Endocrinology 05/08/21 Karlos Murry MD [address] [place] [address] [email or web address] Gastroenterology 02/27/22 Apple Talavera MD [address] [place] [email or web address] Primary Oncologist Medical Oncology 02/19/23 Sergey Tyson MD [address] [place] [address] [email or web address] Insurance Assigned Provider 02/29/24 Mena Mcwilliams, RN [address] [place] [address] [email or web address] i[employer] It Help Desk Analyst 11/13/23 12/11/23 documented as of this encounter Additional Source Comments The information contained in this document represents components of the legal health record. It is not the complete legal health record.[facility]
--- OUTSIDE RECORDS SUMMARY | 2025-04-05 13:37 | XMS_ITS | Encounter Summary ---
Author Organization [facility] Address [facility] [facility] [address] [place] [address] Phone Care Team Providers Care Editor Producer Name Role Phone Karlos Lyons MD Unavailable Omar Rocha MD Unavailable Sagar Leung MD Unavailable Karlos Lyons MD Primary Care Provider Yefri Hilliard MD Unavailable Karlos Murry MD Unavailable [phone] Sergey Tyson MD Primary Care Provider Apple Talavera MD Unavailable [phone] Sergey Tyson MD Unavailable Mena Mcwilliams RN Unavailable [phone] Encounter Details Date Type Department Care Team (Late st Contact Info) Description 10/25/2021 Procedure Pass [address] [address] Social History Tobacco Use Types Packs/Day Years [...] st Contact Info) Description 03/18/2024 Procedure Pass [address] [address] 04/13/2025 9:00 AM EDT Office Visit [place] [facility] Internal Medicine 40 [place] [address] Sergey Tyson MD [address] [place] [address] 04/21/2025 3:00 PM EDT Appointment [address] [address] Apple Talavera MD [address] [place] [address] 04/27/2025 8:30 AM EDT Office Visit [facility] at [address] [address] Apple Talavera MD [address] [place] [address] documented as of this encounter Visit Diagnoses Not on filedocumented in this encounter Additional Health Concerns Infection Onset Date Last Indicated Resolved Time CoV-Risk 05/07/2022 05/07/2022 05/18/2022 1:24 AM EDT Assessment Noted Time PHQ-2 Depression Total Score: 0 05/05/20 9:23 PM EDT documented as of this encounter Care Teams Editor Producer Relationship Specialty Start Date End Date Karlos Lyons MD [address] [address] [email or web address] PCP - General Internal Medicine 05/08/21 05/09/22 Sergey Tyson MD [address] [place] [address] [email or web address] PCP - General Internal Medicine 05/10/22 Karlos Lyons MD [address] [place] [address] [email or web address] Insurance Assigned Provider 02/23/17 03/02/23 Omar Rocha MD [address] [place] [address] [email or web address] and [email or web address] 05/08/21 Sagar Leung MD [address] [place] [address] [email or web address] Obstetrics and Gynecology 05/08/21 Yefri Hilliard MD [address] [place] [address] Endocrinology 05/08/21 Karlos Murry MD [address] [place] [address] [email or web address] Gastroenterology 02/27/22 Apple Talavera MD [address] [place] [address] [email or web address] Primary Oncologist Medical Oncology 02/19/23 Sergey Tyson MD [address] [place] [address] [email or web address] Insurance Assigned Provider 02/29/24 Mena Mcwilliams, RN [address] [place] [address] [email or web address] iCMP Switch Maker 11/13/23 12/11/23 documented as of this encounter Additional Source Comments The information contained in this document represents components of the legal health record. It is not the complete legal health record.[facility]
--- OUTSIDE RECORDS SUMMARY | 2025-04-05 13:37 | XMS_ITS | Encounter Summary ---
Author Organization [facility] Address [address] [employer] [facility] [address] [place] [address] Phone Care Team Providers Care Investigator Claims Name Role Phone Omar Rocha MD Unavailable [phone] Sagar Leung MD Unavailable Yefri Hilliard MD Unavailable Karlos Murry MD Unavailable Sergey Tyson MD Primary Care Provider Apple Talavera MD Unavailable Sergey Tyson MD Unavailable Encounter Details Date Type Department Care Team (Latest Contact Info) Description 03/09/2024 Transcribe Orders Virtual Department [address] [place] [address] Omar Rocha MD [address] [place] [address] [email or web address] Thoracic spine pain (Primary Dx) Social History [...] high school, GED, job training, learning the Ethiopian language, technical skills, or developing parenting skills)? [...] st Contact Info) Description 03/18/2024 Procedure Pass [address] [address] 04/13/2025 9:00 AM EDT Office Visit [facility] Internal Medicine 40 [place] [address] Sergey Tyson MD 40 [place] [address] 04/21/2025 3:00 PM EDT Appointment [address] [address] Apple Talavera MD [address] [place] [address] 04/27/2025 8:30 AM EDT Office Visit [facility] Cancer Center at [address] [address] Apple Talavera MD [address] [place] [address] documented as of this encounter Results * [...] change. Omar Rocha MD IMG XR SPINE Final R esult documented in this encounter Visit Diagnoses Diagnosis Thoracic spine pain- Primary Pain in thoracic spine Thoracic spine pain Pain in thoracic spine documented in this encounter Additional Health Concerns Assessment Noted Time PHQ-2 Depression Total Score: 0 01/28/20 23 6:26 PM EST documented as of this encounter Care Teams Investigator Claims Relationship Specialty Start Date End Date Sergey Tyson MD [address] [place] [address] [email or web address] PCP - General Internal Medicine 05/10/22 Omar Rocha MD [email or web address] Physical Medicine and Rehabilitation 05/08/21 Sagar Leung MD [address] [place] [address], [address] [place] [address] [email or web address] Obstetrics and Gynecology 05/08/21 Yefri Hilliard MD [address] [place] [address] Endocrinology 05/08/21 Karlos Murry MD [address] [place] [address] [email or web address] Gastroenterology 02/27/22 Apple Talavera MD [address] [place] [address] [email or web address] Primary Oncologist Medical Oncology 02/19/23 Sergey Tyson MD [address] [place] [address] [email or web address] Insurance Assigned Provider 02/29/24 documented as of this encounter Additional Source Comments The information contained in this document represents components of the legal health record. It is not the complete legal health record.[facility]
--- OUTSIDE RECORDS SUMMARY | 2025-04-05 13:37 | XMS_ITS | Encounter Summary ---
Author Organization [facility] Address [address] [place] [address] Phone Care Team Providers Care Director Database Name Role Phone Karlos Lyons MD Primary Care Provider Karlos Lyons MD Unavailable [phone] Omar Rocha MD Unavailable [phone] Sagar Leung MD Unavailable Karlos Lyons MD Primary Care Provider [phone] Yefri Hilliard MD Unavailable [phone] Karlos Murry MD Unavailable [phone] Sergey Tyson MD Primary Care Provider [phone] Apple Talavera MD Unavailable [phone] Sergey Tyson MD Unavailable Mena Mcwilliams RN Unavailable [phone] Encounter Details Date Type Department Care Team (Late st Contact Info) Description 10/07/2019 Procedure Pass [facility] - [address] [place] [address] Social History Tobacco Use Types Packs/Day Years [...] Contact Info) Description 03/18/2024 Procedure Pass [address] [address] 04/13/2025 9:00 AM EDT Office Visit [facility] Internal Medicine [address] [place] [address] Sergey Tyson MD [address] [place] [address] 04/21/2025 3:00 PM EDT Appointment [address] [address] Apple Talavera MD [address] [place] [address] 04/27/2025 8:30 AM EDT Office Visit [facility] at [address] [address] Apple Talavera MD [address] [place] [address] [email or web address] documented as of this encounter Visit Diagnoses Not on filedocumented in this encounter Additional Health Concerns Infection Onset Date Last Indicated Resolved Time CoV-Risk 05/07/2022 05/07/2022 05/18/2022 1:24 AM EDT Assessment Noted Time PHQ-2 Depression Total Score: 0 10/20/20 18 10:00 AM EST documented as of this encounter Care Teams Director Database Relationship Specialty Start Date End Date Karlos Lyons MD [address] [place] [address] [email or web address] PCP - General Internal Medicine 07/14/14 05/07/21 Karlos Lyons MD [address] [place] [address] [email or web address] PCP - General Internal Medicine 05/08/21 05/09/22 Sergey Tyson MD [address] [place] [address] [email or web address] PCP - General Internal Medicine 05/10/22 Karlos Lyons MD [address] [place] [address] [email or web address] Insurance Assigned Provider 02/23/17 03/02/23 Omar Rocha MD [address] [place] [address] [email or web address] Physical Medicine and Rehabilitation 05/08/21 Sagar Leung MD [address] [place] [address], [address] [place] [address] Obstetrics and Gynecology 05/08/21 Yefri Hilliard MD [address] [place] [address] Endocrinology 05/08/21 Karlos Murry MD [address] [place] [address] [email or web address] Gastroenterology 02/27/22 Apple Talavera MD [address] [place] [address] [email or web address] Primary Oncologist Medical Oncology 02/19/23 Sergey Tyson MD [address] [place] [address] [email or web address] Insurance Assigned Provider 02/29/24 Mena Mcwilliams, RN [address] [place] [phone] [email or web address] iCMP Project Manager Finance 11/13/23 12/11/23 documented as of this encounter Additional Source Comments The information contained in this document represents components of the legal health record. It is not the complete legal health record.[facility]
--- OUTSIDE RECORDS SUMMARY | 2025-04-05 13:37 | XMS_ITS | Encounter Summary ---
Author Organization [facility] Address [facility] [employer] [facility] [address] [place] [address] Phone Care Team Providers Care Binding Cutter Name Role Phone Karlos Lyons MD Unavailable Omar Rocha MD Unavailable [phone] Sagar Leung MD Unavailable Karlos Lyons MD Primary Care Provider [phone] Yefri Hilliard MD Unavailable Karlos Murry MD Unavailable [phone] Sergey Tyson MD Primary Care Provider [phone] Apple Talavera MD Unavailable [phone] Sergey Tyson MD Unavailable Mena Mcwilliams RN Unavailable [phone] Encounter Details Date Type Department Care Team (Late st Contact Info) Description 01/23/2022 Procedure Pass [facility] Admitting Dept Virtual Department 30 [place] [address] Social History Tobacco Use Types Packs/Day Years [...] Contact Info) Description 03/18/2024 Procedure Pass [address] [address] 04/13/2025 9:00 AM EDT Office Visit [facility] Internal Medicine [address] [place] [address] Sergey Tyson MD 40 [place] [address] 04/21/2025 3:00 PM EDT Appointment [address] [address] Apple Talavera MD [address] [place] [address] 04/27/2025 8:30 AM EDT Office [facility] at [address] [address] Apple Talavera MD [address] [place] [address] documented as of this encounter Visit Diagnoses Not on filedocumented in this encounter Additional Health Concerns Infection Onset Date Last Indicated Resolved Time CoV-Risk 05/07/2022 05/07/2022 05/18/2022 1:24 AM EDT Assessment Noted Time PHQ-2 Depression Total Score: 0 05/05/20 9:23 PM EDT documented as of this encounter Care Teams Binding Cutter Relationship Specialty Start Date End Date Karlos Lyons MD [address] [address] [email or web address] PCP - General Internal Medicine 05/08/21 05/09/22 Sergey Tyson MD [address] [place] [address] [email or web address] PCP - General Internal Medicine 05/10/22 Karlos Lyons MD [address] [place] [address] [email or web address] Insurance Assigned Provider 02/23/17 03/02/23 Omar Rocha MD [address] [place] [address] [email or web address] Physical Medicine and Rehabilitation 05/08/21 Sagar Leung MD [address] [place] [address] [email or web address] Obstetrics and Gynecology 05/08/21 Yefri Hilliard MD [address] [place] [address] Endocrinology 05/08/21 Karlos Murry MD [address] [place] [address] [email or web address] Gastroenterology 02/27/22 Apple Talavera MD [address] [place] [address] [email or web address] Primary Oncologist Medical Oncology 02/19/23 Sergey Tyson MD [address] [place] [address] [email or web address] Insurance Assigned Provider 02/29/24 Mena Mcwililams, RN [address] [place] [address] [email or web address] iCMP Electric Stove Installer 11/13/23 12/11/23 documented as of this encounter Additional Source Comments The information contained in this document represents components of the legal health record. It is not the complete legal health record.[facility]
--- OUTSIDE RECORDS SUMMARY | 2025-04-05 13:37 | XMS_ITS | Encounter Summary ---
Author Organization [facility] Address [facility] [employer] [place] [address] [place] [address] Phone Care Team Providers Care Sand Mill Operator Facing Sand Name Role Phone Karlos Lyons MD Unavailable Omar Rocha MD Unavailable Sagar Leung MD Unavailable Karlos Lyons MD Primary Care Provider [phone] Yefri Hilliard MD Unavailable Karlos Murry MD Unavailable [phone] Sergey Tyson MD Primary Care Provider [phone] Apple Talavera MD Unavailable [phone] Sergey Tyson MD Unavailable Mena Mcwilliams RN Unavailable Encounter Details Date Type Department Care Team (Latest Contact Info) Description 11/13/2021 Transcribe Orders Virtual Department 30 [place], [place] [phone] Omar Rocha MD [address] [place] [address] [email or web address] Right foot pain (Primary Dx) Social History Tobacco Use Types Packs/Day Years Used Date Smoking Tobacco: Former Cigarettes 1.5 7 1 4 1970 Smokeless Tobacco: Never Comments:quit 1970 Alcohol [...] Contact Info) Description 03/18/2024 Procedure Pass [address] [address] 04/13/2025 9:00 AM EDT Office Visit [facility] Internal Medicine 40 [place] [address] Sergey Tyson MD [address] [place] [address] 04/21/2025 3:00 PM EDT Appointment [address] [address] Apple Talavera MD [address] [place] [address] [email or web address] 04/27/2025 8:30 AM EDT Office Visit [facility] at [address] [address] Apple Talavera MD [address] [place] [address] documented as of this encounter Results * [...] 3.Osteopenia. Omar Rocha MD IMG XR LOWER EXTREMITY Final Result documented in this encounter [...] documented as of this encounter Care Teams Sand Mill Operator Facing Sand Relationship Specialty Start Date End Date Karlos Lyons MD [address] [address] [email or web address] PCP - General Internal Medicine 05/08/21 05/09/22 Sergey Tyson MD [address] [place] [address] [email or web address] PCP - General Internal Medicine 05/10/22 Karlos Lyons MD [address] [address] [email or web address] Insurance Assigned Provider 02/23/17 03/02/23 Omar Rocha MD [address] [place] [address] [email or web address] Physical Medicine and Rehabilitation 05/08/21 Sagar Leung MD [address] [place] [address] [email or web address] Obstetrics and Gynecology 05/08/21 Yefri Hilliard MD [address] [place] [address] Endocrinology 05/08/21 Karlos Murry MD [address] [place] [address] [email or web address] Gastroenterology 02/27/22 Apple Talavera MD [address] [place] [address] [email or web address] Primary Oncologist Medical Oncology 02/19/23 Sergey Tyson MD [address] [place] [address] [email or web address] Insurance Assigned Provider 02/29/24 Mena Mcwilliams RN [address] [place] [address] [email or web address] iCMP Sales Training Manager 11/13/23 12/11/23 documented as of this encounter Additional Source Comments The information contained in this document represents components of the legal health record. It is not the complete legal health record.[facility]
--- OUTSIDE RECORDS SUMMARY | 2025-04-05 13:37 | XMS_ITS | Encounter Summary ---
Author Organization [facility] Address [address] [place] [address] [address] [place] [address] Phone Care Team Providers Care Talent Acquisition Operations Manager Name Role Phone Karlos Lyons MD Unavailable [phone] Omar Rocha MD Unavailable [phone] Sagar Leung MD Unavailable Karlos Lyons MD Primary Care Provider + [phone] Yefri Hilliard MD Unavailable [phone] Karlos Murry MD Unavailable [phone] Sergey Tyson MD Primary Care Provider [phone] Apple Talavera MD Unavailable [phone] Sergey Tyson MD Unavailable Mena Mcwilliams RN Unavailable [phone] Reason for Referral * MRI/CAT Scan - Closed Specialty Diagnoses / Procedures Referred By Jessica balbuena Referred To Contact Radiology Diagnoses Vision loss Nonintractable headache, unspecified chronicity pattern, unspecified headache type Procedures MRI Brain Berto Quintanilla MD Phone: tel: fax: [email or web address] Referral ID Status Reason Start Date Expiration Date Visits Re quested Visits Authorized [id number] Closed 02/22/2022 02/22/2023 1 1 Encounter Details Date Type Department Care Team (Latest Contact Info) Description 02/22/2022 Transcribe Orders Virtual Department [address] [place] [phone] Berto Quintanilla MD [address] [place] [address], [address] [place] [address] [email or web address] Vision loss (Primary [...] st Contact Info) Description 03/18/2024 Procedure Pass [address] [address] 04/13/2025 9:00 AM EDT Office Visit [facility] [place] Internal Medicine [address] [place] [address] Sergey Tyson MD [address] [place] [address] 04/21/2025 3:00 PM EDT Appointment [address] [place] [address] Apple Talavera MD [address] [place] [address] [email or web address] 04/27/2025 8:30 AM EDT Office Visit [facility] [place] [address] [place] [address] Apple Talavera MD [address] [place] [email or web address] documented as of this encounter Results [...] was performed withoutintravenous contrast. COMPARISON: MRI-MRA HEAD [facility] FINDINGS: Brain Parenchyma: No evidence of [...] nearly 7 years (03/31/2015) are likely benign. us Berto Quintanilla MD [facility] MR HEAD/NECK Final Resul t * US Carotid Duplex Complete (Bilateral) (03/14/2022 [...] antegrade vertebral artery flow. Berto Quintanilla MD US NEUROVASCULAR Final Re sult documented in this encounter Visit Diagnoses Diagnosis [...] documented as of this encounter Care Teams Talent Acquisition Operations Manager Relationship Specialty Start Date End Date Karlos Lyons MD [address] [address] [email or web address] PCP - General Internal Medicine 05/08/21 05/09/22 Sergey Tyson MD [address] [place] [address] [email or web address] PCP - General Internal Medicine 05/10/22 Karlso Lyons MD [address] [place] [address] [email or web address] Insurance Assigned Provider 02/23/17 03/02/23 Omar Rocha MD [address] [place] [address] [email or web address] Physical Medicine and [email or web address] 05/08/21 Sagar Leung MD [address] [place] [address] [address] [place] [address] [email or web address] Obstetrics and Gynecology 05/08/21 Yefri Hilliard MD [address] [place] [address] Endocrinology 05/08/21 Karlos Murry MD [address] [place] [address] [email or web address] Gastroenterology 02/27/22 Apple Talavera MD 30 [place] [address] [email or web address] Primary Oncologist Medical Oncology 02/19/23 Sergey Tyson MD [address] [place] [address] [email or web address] Insurance Assigned Provider 02/29/24 Mena Mcwilliams, RN [address] [place] [address] [email or web address] iCMP Post Framer 11/13/23 12/11/23 documented as of this encounter Additional Source Comments The information contained in this document represents components of the legal health record. It is not the complete legal health record.[facility]
--- OUTSIDE RECORDS SUMMARY | 2025-04-05 13:38 | XMS_ITS | Encounter Summary ---
Author Organization [facility] Address [address] [place] [address] Phone Care Team Providers Care Cycle Manager Name Role Phone Karlos Lyons MD Primary Care Provider Karlos Lyons MD Unavailable [phone] Omar Rocha MD Unavailable [phone] Sagar Leung MD Unavailable Karlos Lyons MD Primary Care Provider + [phone] Yefri Hilliard MD Unavailable [phone] Karlos Murry MD Unavailable [phone] Sergey Tyson MD Primary Care Provider [phone] Apple Talavera MD Unavailable [phone] Sergey Tyson MD Unavailable Mena Mcwilliams RN Unavailable [phone] Reason for Referral * Occupational Therapy (Routine) - Closed Specialty Diagnoses / Procedures Referred By Jessica balbuena Referred To Contact Occupational Therapy Diagnoses Encounter for rehabilitation System, Provider Not In, PhD [phone] [place] [address] [place] [address] Phone: tel: Referral ID Status Reason Start Date Expiration Date Visits Re quested Visits Authorized [id number] Closed 02/14/2018 11/24/2018 99 99 Encounter Details Date Type Department Care Team (Latest Contact Info) Description 02/14/2018 Transcribe Orders [facility] [address] [place] [address] Theresa Peterson [facility] [place] [address] [email or web address] Encounter for rehabilitation (Primary Dx) Social History [...] Contact Info) Description 03/18/2024 Procedure Pass [address] [address] 04/13/2025 9:00 AM EDT Office Visit [facility] Internal Medicine [address] [place] [address] Sergey Tyson MD [address] [place] [address] 04/21/2025 3:00 PM EDT Appointment [address] [address] Apple Talavera MD [address] [place] [address] 04/27/2025 8:30 AM EDT Office Visit [facility] 30 [place] [address] Apple Talavera MD 30 [place] [address] [email or web address] Scheduled Referrals Name Type Priority Associated Diagnoses Orde r Schedule Ambulatory referral to [facility] Occupational Therapy Outpatient Referral Routine Encounter for rehabilitation Ordered: 02/14/2018 documented as of this encounter Visit Diagnoses Diagnosis Encounter for rehabilitation- Primary documented in this encounter Additional Health Concerns Infection Onset Date Last Indicated Resolved Time CoV-Risk 05/07/2022 05/07/2022 05/18/2022 1:24 AM EDT documented as of this encounter Care Teams Cycle Manager Relationship Specialty Start Date End Date Karlos Lyons MD [address] [place] [address] [email or web address] PCP - General Internal Medicine 07/14/14 05/07/21 Karlos Lyons MD [address] [place] [address] [email or web address] PCP - General Internal Medicine 05/08/21 05/09/22 Sergey Tyson MD [address] [place] [address] [email or web address] PCP - General Internal Medicine 05/10/22 Karlos Lyons MD [address] [place] [address] [email or web address] Insurance Assigned Provider 02/23/17 03/02/23 Omar Rocha MD [address] [place] [address] [email or web address] Physical Medicine [email or web address] 05/08/21 Sagar Leung MD [address] [place] [address], [address] [place] [address] Obstetrics and Gynecology 05/08/21 Yefri Hilliard MD [address] [place] [address] Endocrinology 05/08/21 Karlos Murry MD [address] [place] [address] Gastroenterology 02/27/22 Apple Talavera MD [address] [place] [email or web address] Primary Oncologist Medical Oncology 02/19/23 Sergey Tyson MD [address] [place] [address] Insurance Assigned Provider 02/29/24 Mena Mcwilliams, RN [address] [place] [address] [email or web address] iCMP Client Specialist 11/13/23 12/11/23 documented as of this encounter Additional Source Comments The information contained in this document represents components of the legal health record. It is not the complete legal health record.[facility]
--- OUTSIDE RECORDS SUMMARY | 2025-04-05 13:38 | XMS_ITS | Encounter Summary ---
Author Organization [facility] Address [address] [place] [address] [address] [place] [address] Phone Care Team Providers Care Grain Combiner Name Role Phone Karlos Lyons MD Primary Care Provider Karlos Lyons MD Unavailable [phone] Omar Rocha MD Unavailable [phone] Sagar Leung MD Unavailable Karlos Lyons MD Primary Care Provider + [phone] Yefri Hilliard MD Unavailable [phone] Karlos Murry MD Unavailable [phone] Sergey Tyson MD Primary Care Provider [phone] Apple Talavera MD Unavailable [phone] Sergey Tyson MD Unavailable Mena Mcwilliams RN Unavailable [phone] Reason for Referral * Outpatient Procedure - Closed Specialty Diagnoses / Procedures Referred By Jessica balbuena Referred To Contact Radiology Diagnoses Dyspepsia Procedures NM Gastric Emptying Karlos Murry MD Phone: tel: fax: mailto: Referral ID Status Reason Start Date Expiration Date Visits Re quested Visits Authorized [id number] Closed 01/09/2018 01/09/2019 1 1 Encounter Details Date Type Department Care Team (Late st Contact Info) Description 01/09/2018 Ancillary Orders Virtual Department [address] [place] [address] Karlos Murry MD [address] [place] [address] Dyspepsia Social History Tobacco Use Types Packs/Day [...] Contact Info) Description 03/18/2024 Procedure Pass [address] [address] 04/13/2025 9:00 AM EDT Office Visit [facility] Internal Medicine [address] [place] [address] Sergey Tyson MD [address] [place] [address] 04/21/2025 3:00 PM EDT Appointment [address] [address] Apple Talavera MD [address] [place] [address] 04/27/2025 8:30 AM EDT Office Visit [facility] [address] [place] [address] Apple Talavera MD [address] [place] [address] [email or web address] documented as of this encounter Results * [...] [id number] Karlos Murry MD IMG NM ABDOMEN Final Resu lt documented in this encounter Visit Diagnoses Diagnosis Dyspepsia Dyspepsia and other specified disorders of function of stomach Dyspepsia Dyspepsia and other specified disorders of function of stomach documented in this encounter Additional Health Concerns Infection Onset Date Last Indicated Resolved Time CoV-Risk 05/07/2022 05/07/2022 05/18/2022 1:24 AM EDT documented as of this encounter Care Teams Grain Combiner Relationship Specialty Start Date End Date Karlos Lyons MD [address] [place] [address] [email or web address] PCP - General Internal Medicine 07/14/14 05/07/21 Karlos Lyons MD [address] [place] [address] [email or web address] PCP - General Internal Medicine 05/08/21 05/09/22 Sergey Tyson MD [address] [place] [address] [email or web address] PCP - General Internal Medicine 05/10/22 Karlos Lyons MD [address] [place] [address] [email or web address] Insurance Assigned Provider 02/23/17 03/02/23 Omar Rocha MD [address] [place] [address] [email or web address] 05/08/21 Sagar Leung MD [address] [place] [address], [address] [place] [address] Obstetrics and Gynecology 05/08/21 Yefri Hilliard MD [address] [place] [address] Endocrinology 05/08/21 Karlos Murry MD [address] [place] [address] Gastroenterology 02/27/22 Apple Talavera MD [address] [place] [address] Primary Oncologist Medical Oncology 02/19/23 Sergey Tyson MD [address] [place] [address] Insurance Assigned Provider 02/29/24 Mena Mcwilliams, RN [address] [place] [address] [email or web address] iCMP Clinic Supervisor 11/13/23 12/11/23 documented as of this encounter Additional Source Comments The information contained in this document represents components of the legal health record. It is not the complete legal health record.[facility]
--- OUTSIDE RECORDS SUMMARY | 2025-04-05 13:38 | XMS_ITS | Encounter Summary ---
Author Organization [facility] Address [address] [place] [address] [address] [place] [address] Phone Care Team Providers Care Hypoid Gear Tester Name Role Phone Karlos Lyons MD Primary Care Provider Karlos Lyons MD Unavailable [phone] Omar Rocha MD Unavailable [phone] Sagar Leung MD Unavailable Karlos Lyons MD Primary Care Provider + [phone] Yefri Hilliard MD Unavailable [phone] Karlos Murry MD Unavailable [phone] Sergey Tyson MD Primary Care Provider [phone] Apple Talavera MD Unavailable [phone] Sergey Tyson MD Unavailable Mena Mcwilliams RN Unavailable [phone] Encounter Details Date Type Department Care Team (Late st Contact Info) Description 03/16/2019 Procedure Pass [facility] [address] [place] [address] Social History Tobacco Use Types [...] Contact Info) Description 03/18/2024 Procedure Pass [address] [address] 04/13/2025 9:00 AM EDT Office Visit [facility] Internal Medicine [address] [place] [address] Sergey Tyson MD [address] [place] [address] 04/21/2025 3:00 PM EDT Appointment [address] [address] Apple Talavera MD [address] [place] [address] 04/27/2025 8:30 AM EDT Office Visit [facility] at [address] [address] Apple Talavera MD [address] [place] [address] documented as of this encounter Visit Diagnoses Not on filedocumented in this encounter Additional Health Concerns Infection Onset Date Last Indicated Resolved Time CoV-Risk 05/07/2022 05/07/2022 05/18/2022 1:24 AM EDT Assessment Noted Time PHQ-2 Depression Total Score: 0 10/20/20 10:00 AM EST documented as of this encounter Care Teams Hypoid Gear Tester Relationship Specialty Start Date End Date Karlos Lyons MD [address] [address] [email or web address] PCP - General Internal Medicine 07/14/14 05/07/21 Karlos Lyons MD [address] [place] [address] [email or web address] PCP - General Internal Medicine 05/08/21 05/09/22 Sergey Tyson MD [address] [place] [address] [email or web address] [email or web address] PCP - General Internal Medicine 05/10/22 Karlos Lyons MD [address] [place] [address] [email or web address] Insurance Assigned Provider 02/23/17 03/02/23 Omar Rocha MD [address] [place] [address] [email or web address] and [email or web address] 05/08/21 Sagar Leung MD [address] [place] [address], [address] [place] [address] [email or web address] [email or web address] Obstetrics and Gynecology 05/08/21 Yefri Hilliard MD [address] [place] [address] Endocrinology 05/08/21 Karlos Murry MD [address] [place] [address] [email or web address] [email or web address] Gastroenterology 02/27/22 Apple Talavera MD [address] [place] [address] [email or web address] [email or web address] Primary Oncologist Medical Oncology 02/19/23 Sergey Tyson MD [address] [place] [address] [email or web address] Insurance Assigned Provider 02/29/24 Mena Mcwilliams, RN [address] [place] [address] [email or web address] iCMP Manufacturing Scheduler 11/13/23 12/11/23 documented as of this encounter Additional Source Comments The information contained in this document represents components of the legal health record. It is not the complete legal health record.[facility]
--- OUTSIDE RECORDS SUMMARY | 2025-04-05 13:38 | XMS_ITS | Encounter Summary ---
Author Organization [facility] Address [facility]ly [facility] [address] [place] [address] Phone Care Team Providers Care Cyber Forensics Analyst Name Role Phone Omar Rocha MD Unavailable Sagar Leung MD Unavailable Yefri Hilliard MD Unavailable Karlos Murry MD Unavailable [phone] Sergey Tyson MD Primary Care Provider [phone] Apple Talavera MD Unavailable [phone] Sergey Tyson MD Unavailable Reason for Visit * Reason Comments Follow Up Visit ED [facility] Encounter Details Date Type Department Care Team (Late st Contact Info) Description 04/01/2025 10:20 AM EDT Office Visit [facility] [place] Internal Medicine [address] [place], [place] [phone] Dia Álvarez PA-C [address] [place], [place] [phone] Pneumonia of both lower lobes due to [...] list. On 03/30/2025 she ultimately went to [facility] due to left lower quadrant abdominal [...] She has an upcoming appointment with a international trade analyst on Saturday. Additionally, she reports umbilical pain, intermittent diarrhea, and occasional foul-smelling, greasy stools. She has a family history of gallbladder disease, with her mother, sister, and grandmother all having had the condition. Current Outpatient Medications Ordered in [facility] Medication Sig albuterol 90 mcg/actuation inhaler Inhale 2 puffs into the lungs every 6 (six) hours as needed for wheezing. azithromycin (ZITHROMAX) 250 MG tablet carisoprodol (SOMA) 350 MG tablet TAKE 1 TAB 4 TIMES A DAY PARTIAL FILL PER PATIENT REQUEST MAY PRIVATE CHEF ON 02/14/2023 cholecalciferol (VITAMIN D3) 2,000 unit [...] bedtime. Indications: managed by Dr. Rocha at [facility] simethicone 125 mg Cap Take 125 mg [...] membranes moist. Neck supple and symmetrical. Skin: Earl, warm, dry. Chest: No focal tenderness to [...] of Oddi. She has a follow-up with [facility] on Saturday. She is advised to [...] of Oddi. She has a follow-up with [facility] on Saturday. She is advised to [...] st Contact Info) Description 03/18/2024 Procedure Pass [address] [address] 04/13/2025 9:00 AM EDT Office Visit [facility] Internal Medicine [address] [place] [address] Sergey Tyson MD [address] [place] [address] [email or web address] 04/21/2025 3:00 PM EDT Appointment [address] [address] Apple Talavera MD [address] [place] [email or web address] 04/27/2025 8:30 AM EDT Office Visit [facility] at [address] [address] Apple Talavera MD [address] [place] [address] documented as of this encounter Visit Diagnoses Diagnosis Pneumonia of both lower lobes due to infectious organism- Primary Generalized abdominal pain Abdominal pain, generalized documented in this encounter Additional Health Concerns Assessment Noted Time PHQ-9 Depression Total Score: 3 09/11/20 24 9:24 AM EDT PHQ-2 Depression Total Score: 1 09/11/20 24 9:24 AM EDT documented as of this encounter Care Teams Cyber Forensics Analyst Relationship Specialty Start Date End Date Sergey Tyson MD [address] [place] [address] PCP - General Internal Medicine 05/10/22 Omar Rocha MD [email or web address] Medicine [email or web address] 05/08/21 Sagar Leung MD [address] [place] [address] Obstetrics and Gynecology 05/08/21 Yefri Hilliard MD [address] [place] [address] Endocrinology 05/08/21 Karlos Murry MD [address] [place] [address] Gastroenterology 02/27/22 Apple Talavera MD [address] [place] [address] Primary Oncologist Medical Oncology 02/19/23 Sergey Tyson MD [address] [place] [address] [email or web address] Insurance Assigned Provider 02/29/24 documented as of this encounter Additional Source Comments The information contained in this document represents components of the legal health record. It is not the complete legal health record.[facility]
--- OUTSIDE RECORDS SUMMARY | 2025-04-05 13:38 | XMS_ITS | Encounter Summary ---
Author Organization [facility] Address [address] [place] [address] Care Team Providers Care Convex Grinder Name Role Phone Sergey Tyson MD Primary Care Provider [phone] Encounter Details Date Type Department Care Team (Late st Contact Info) Description 12/24/2024 Lab Requisition [facility] - Main Lab [address] [facility] [place] [place] [address] [employer] PA [address] [place] [address] Calculus of kidney Social History Tobacco Use [...] LAB CHEMISTRY METHOD 12/24/2024 7:29 PM EST [facility] Blood Venous blood specimen / Unknown 12/24/2024 2:15 PM EST 12/24/2024 6:35 PM EST [employer] ND LAB BLOOD ORDERABLES Final Re sult Performing Organization Address City/[facility]/ZIP Co de Phone Number [facility] [address] [place] [address], [place] [phone] * Parathyroid hormone intact (12/24/2024 2:15 PM EST) PTH 36.6 18.5 - 88.0 pcg/mL LAB CHEMISTRY METHOD 12/24/2024 7:29 PM EST [facility] Blood Venous blood specimen / Unknown 12/24/2024 2:15 PM EST 12/24/2024 6:35 PM EST [employer] ND LAB BLOOD ORDERABLES Final Re sult Performing Organization Address [facility]/ZIP Co de Phone Number [facility] [address] [place] [address], [place] [phone] documented in this encounter Visit Diagnoses Diagnosis Calculus of kidney documented in this encounter Care Teams Convex Grinder Relationship Specialty Start Date End Date Sergey Tyson MD [address] [place] [address] PCP - General Internal Medicine 12/24/24 documented as of this encounter
--- OUTSIDE RECORDS SUMMARY | 2025-04-05 13:38 | XMS_ITS | Encounter Summary ---
Author Organization [facility] Address [address] [place] [address] [place], [place] [address] [place] [address] Phone Care Team Providers Care Cloth Feeder Name Role Phone Karlos Lyons MD Primary Care Provider Karlos Lyons MD Unavailable [phone] Omar Rocha MD Unavailable [phone] Sagar Leung MD Unavailable Karlos Lyons MD Primary Care Provider + [phone] Yefri Hilliard MD Unavailable [phone] Karlos Murry MD Unavailable [phone] Sergey Tyson MD Primary Care Provider Apple Talavera MD Unavailable [phone] Sergey Tyson MD Unavailable Mena Mcwilliams RN Unavailable [phone] Encounter Details Date Type Department Care Team (Late st Contact Info) Description 08/19/2018 Ancillary Orders [facility] Internal Medicine [address] [place] [address] Karlos Lyons MD [address] [place] [address] [email or web address] Breast screening Social History Tobacco Use Types [...] Contact Info) Description 03/18/2024 Procedure Pass [address] [address] 04/13/2025 9:00 AM EDT Office Visit [facility] Internal Medicine [address] [place] [address] Sergey Tyson MD [address] [place] [address] 04/21/2025 3:00 PM EDT Appointment [address] [address] Apple Talavera MD [address] [place] [address] [email or web address] 04/27/2025 8:30 AM EDT Office Visit [facility] at [address] [address] Apple Talavera MD [address] [place] [address] documented as of this encounter Visit Diagnoses Diagnosis Breast screening Breast screening, unspecified documented in this encounter Additional Health Concerns Infection Onset Date Last Indicated Resolved Time CoV-Risk 05/07/2022 05/07/2022 05/18/2022 1:24 AM EDT documented as of this encounter Care Teams Cloth Feeder Relationship Specialty Start Date End Date Karlos Lyons MD [address] [place] [address] [email or web address] PCP - General Internal Medicine 07/14/14 05/07/21 Karlos Lyons MD [address] [place] [address] [email or web address] PCP - General Internal Medicine 05/08/21 05/09/22 Sergey Tyson MD [address] [place] [address] [email or web address] PCP - General Internal Medicine 05/10/22 Karlos Lyons MD [address] [place] [address] [email or web address] Insurance Assigned Provider 02/23/17 03/02/23 Omar Rocha MD [address] [place] [address] [email or web address] Physical Medicine and Rehabilitation 05/08/21 Sagar Leung MD [address] [place] [address], [address] [place] [address] [email or web address] Obstetrics and Gynecology 05/08/21 Yefri Hilliard MD [address] [place] [address] Endocrinology 05/08/21 Karlos Murry MD [address] [place] [address] Gastroenterology 02/27/22 Apple Talavera MD [address] [place] [address] [email or web address] Primary Oncologist Medical Oncology 02/19/23 Sergey Tyson MD [address] [place] [address] [email or web address] Insurance Assigned Provider 02/29/24 Mena Mcwilliams, RN [address] [place] [address] [email or web address] i[employer] Home Management Supervisor 11/13/23 12/11/23 documented as of this encounter Additional Source Comments The information contained in this document represents components of the legal health record. It is not the complete legal health record.[facility]
--- OUTSIDE RECORDS SUMMARY | 2025-04-05 13:38 | XMS_ITS | Encounter Summary ---
Author Organization [facility] Address [address] [place] [address] [address] [place] [address] Phone Care Team Providers Care Canoe Maker Name Role Phone Karlos Lyons MD Primary Care Provider + [phone] Karlos Lyons MD Unavailable [phone] Omar Rocha MD Unavailable [phone] Sagar Leung MD Unavailable Karlos Lyons MD Primary Care Provider [phone] Yefri Hilliard MD Unavailable [phone] Karlos Murry MD Unavailable [phone] Sergey Tyson MD Primary Care Provider [phone] Apple Talavera MD Unavailable [phone] Sergey Tyson MD Unavailable Mena Mcwilliams RN Unavailable [phone] Reason for Referral * Consultation (Within 1 month) - Closed Specialty Diagnoses / Procedures Referred By Jessica balbuena Referred To Contact Rheumatology Marquita Jacobo MD Phone: tel: fax: mailto:[email or web address] Referral ID Status Reason Start Date Expiration Date Visits Re quested Visits Authorized [id number] Closed 05/30/2018 05/31/2019 1 1 Encounter Details Date Type Department Care Team (Late Contact Info) Description 05/30/2018 Transcribe Orders [facility] Rheumatology [address], [address] Floor, [address] [place] [address] Marquita Jacobo MD [address] [facility] [address] [place] [phone] [email or web address] Social History Tobacco Use Types Packs/Day Years Used Date Smoking Tobacco: Former Cigarettes Smokeless Tobacco: Never Comments:Quit smokin11/25 Alcohol Use Standard Drinks/Week Comments No 0 (1 standard drink = 0.6 oz pur e alcohol) Comments Unknown Sex and Gender Information Value Date Recorded Sex Assigned at Female 05/05/2021 9:10 PM EDT Legal Sex Female 10:20 AM EDT Gender Identity Female 03/19/2021 10:12 AM EDT Sexual Orientation Straight 05/05/2021 9: 10 PM EDT documented as of this encounter Plan of Treatment Upcoming Encounters Date Type Department Care Team (Late Contact Info) Description 03/18/2024 Procedure Pass [address] [address] 04/13/2025 9:00 AM EDT Office Visit [facility] Internal Medicine [address] [place] [address] Sergey Tyson MD [address] [place] [address] [email or web address] 04/21/2025 3:00 PM EDT Appointment [address] [address] Apple Talavera MD [address] [place] [address] [email or web address] 04/27/2025 8:30 AM EDT Office Visit [facility] [address] [place] [address] Apple Talavera MD [address] [place] [address] [email or web address] Scheduled Referrals Name Type Priority Associated Diagnoses Order Schedule Ambulatory referral to [facility] Rheumatology Outpatient Referral Routine Ordered: 05/30/2018 documented as of this encounter Visit Diagnoses Not on filedocumented in this encounter Additional Health Concerns Infection Onset Date Last Indicated Resolved Time CoV-Risk 05/07/2022 05/07/2022 05/18/2022 1:24 AM EDT documented as of this encounter Care Teams Canoe Maker Relationship Specialty Start Date End Date Karlos Lyons MD [address] [place] [address] [email or web address] PCP - General Internal Medicine 07/14/14 05/07/21 Karlos Lyons MD [address] [place] [address] [email or web address] PCP - General Internal Medicine 05/08/21 05/09/22 Sergey Tyson MD [address] [place] [address] [email or web address] PCP - General Internal Medicine 05/10/22 Karlos Lyons MD [address] [place] [address] [email or web address] Insurance Assigned Provider 02/23/17 03/02/23 Omar Rocha MD [address] [place] [address] [address] [place] [address] [email or web address] Physical Medicine and Rehabilitation 05/08/21 Sagar Leung MD [address] [facility], [address] [place] [address] Obstetrics and Gynecology 05/08/21 Yefri Hilliard MD [address] [place] [address] Endocrinology 05/08/21 Karlos Murry MD [address] [place] [address] Gastroenterology 02/27/22 Apple Talavera MD [address] [place] [address] [email or web address] Primary Oncologist Medical Oncology 02/19/23 Sergey Tyson MD [address] [place] [address] Insurance Assigned Provider 02/29/24 Mena Mcwilliams, RN [address] [place] [address] [id number] iC[employer] Green [place] Man 11/13/23 12/11/23 documented as of this encounter Additional Source Comments The information contained in this document represents components of the legal health record. It is not the complete legal health record.[facility]
--- OUTSIDE RECORDS SUMMARY | 2025-04-05 13:38 | XMS_ITS | Encounter Summary ---
Author Organization [facility] Address [address] [place] [address] 985 [place] [address] Phone Care Team Providers Care Pest Control Pilot Name Role Phone Karlos Lyons MD Primary Care Provider Karlos Lyons MD Unavailable [phone] Omar Rocha MD Unavailable [phone] Sagar Leung MD Unavailable Karlos Lyons MD Primary Care Provider + [phone] Yefri Hilliard MD Unavailable [phone] Karlos Murry MD Unavailable [phone] Sergey Tyson MD Primary Care Provider Apple Talavera MD Unavailable [phone] Sergey Tyson MD Unavailable Mena Mcwilliams RN Unavailable [phone] Encounter Details Date Type Department Care Team (Latest Contact Info) Description 10/30/2018 Transcribe Orders [address] [place] [address] Karlos Murry MD [address] [place] [address] [phone] Nausea (Primary Dx) Social History Tobacco Use [...] Contact Info) Description 03/18/2024 Procedure Pass [address] [address] 04/13/2025 9:00 AM EDT Office Visit [facility] Internal Medicine 40 [place] [address] Sergey Tyson MD [address] [place] [address] [email or web address] 04/21/2025 3:00 PM EDT Appointment [address] [address] Apple Talavera MD [address] [place] [address] 04/27/2025 8:30 AM EDT Office Visit [facility] at [address] [address] Apple Talavera MD [address] [place] [address] documented as of this encounter Results * Stool fat/fiber exam (10/29/2018 8:00 PM EST) FATTY ACID NORMAL NORMAL [facility] Neutral Fat, stool NORMAL NORMAL [facility] Stool (Stool) 10/29/2018 8:0 0 PM EST 10/30/2018 11:55 AM EST Karlos Murry MD BODY FLUIDS AND STOOLS ORD ERABLES Final Result [facility] [address] [place] [address] documented in this encounter Visit Diagnoses Diagnosis Nausea- Primary Nausea alone documented in this encounter Additional Health Concerns Infection Onset Date Last Indicated Resolved Time CoV-Risk 05/07/2022 05/07/2022 05/18/2022 1:24 AM EDT Assessment Noted Time PHQ-2 Depression Total Score: 0 10/20/20 18 10:00 AM EST documented as of this encounter Care Teams Pest Control Pilot Relationship Specialty Start Date End Date Karlos Lyons MD [address] [place] [address] [email or web address] PCP - General Internal Medicine 07/14/14 05/07/21 Karlos Lyons MD [address] [place] [address] [email or web address] PCP - General Internal Medicine 05/08/21 05/09/22 Sergey Tyson MD [address] [place] [address] [email or web address] PCP - General Internal Medicine 05/10/22 Karlos Lyons MD [address] [place] [address] [email or web address] Insurance Assigned Provider 02/23/17 03/02/23 Omar Rocha MD [address] [place] [address] 101 [place] [address] [email or web address] 05/08/21 Sagar eLung MD [address] [place] [address] [address] [place] [address] Obstetrics and Gynecology 05/08/21 Yefri Hilliard MD [address] [place] [address] Endocrinology 05/08/21 Karlos Murry MD [address] [place] [address] Gastroenterology 02/27/22 Apple Talavera MD [address] [place] [address] [email or web address] Primary Oncologist Medical Oncology 02/19/23 Sergey Tyson MD [address] [place] [address] Insurance Assigned Provider 02/29/24 Mena Mcwilliams, RN [address] [place], [place] [phone] [email or web address] [facility]in[facility] 11/13/23 12/11/23 documented as of this encounter Additional Source Comments The information contained in this document represents components of the legal health record. It is not the complete legal health record.[facility]
--- OUTSIDE RECORDS SUMMARY | 2025-04-05 13:38 | XMS_ITS | Encounter Summary ---
Author Organization [facility] Address [address] [place] [address] [address] [place] [address] Phone Care Team Providers Care Project Scheduler Name Role Phone Karlos Lyons MD Primary Care Provider Karlos Lyons MD Unavailable [phone] Omar Rocha MD Unavailable [phone] Sagar Leung MD Unavailable Karlos Lyons MD Primary Care Provider + [phone] Yefri Hilliard MD Unavailable [phone] Karlos Murry MD Unavailable [phone] Sergey Tyson MD Primary Care Provider Apple Talavera MD Unavailable [phone] Sergey Tyson MD Unavailable Mena Mcwilliams RN Unavailable [phone] Encounter Details Date Type Department Care Team (Late st Contact Info) Description 09/14/2017 Ancillary Orders [facility] [place] [address] [place], [place] [phone] Apple Talavera MD [address] [place] [address] Abnormal findings on diagnostic imaging of breast [...] Contact Info) Description 03/18/2024 Procedure Pass [address] [address] 04/13/2025 9:00 AM EDT Office Visit [facility] Medical [facility] Internal Medicine [address] [place] [address] Sergey Tyson MD [address] [place] [address] [email or web address] 04/21/2025 3:00 PM EDT Appointment [address] [address] Apple Talavera MD [address] [place] [address] [email or web address] 04/27/2025 8:30 AM EDT Office Visit [facility] at [address] [address] Apple Talavera MD [address] [place] [address] documented as of this encounter Visit Diagnoses Diagnosis Abnormal findings on diagnostic imaging of breast Other (abnormal) findings on radiological examination of breast documented in this encounter Additional Health Concerns Infection Onset Date Last Indicated Resolved Time CoV-Risk 05/07/2022 05/07/2022 05/18/2022 1:24 AM EDT documented as of this encounter Care Teams Project Scheduler Relationship Specialty Start Date End Date Karlos Lyons MD [address] [address] [email or web address] PCP - General Internal Medicine 07/14/14 05/07/21 Karlos Lyons MD [address] [place] [address] [email or web address] PCP - General Internal Medicine 05/08/21 05/09/22 Sergey Tyson MD [address] [place] [address] [email or web address] PCP - General Internal Medicine 05/10/22 Karlos Lyons MD [address] [place] [address] [email or web address] Insurance Assigned Provider 02/23/17 03/02/23 Omar Rocha MD [address] [place] [address] [email or web address] Physical Medicine and Rehabilitation 05/08/21 Sagar Leung MD [address] [place] [address] 102 [place] [address] [email or web address] Obstetrics and Gynecology 05/08/21 Yefri Hilliard MD [address] [place] [address] Endocrinology 05/08/21 Karlos Murry MD [address] [place] [address] [email or web address] Gastroenterology 02/27/22 Apple Talavera MD [address] [place] [address] [email or web address] Primary Oncologist Medical Oncology 02/19/23 Sergey Tyson MD [address] [place] [address] [email or web address] Insurance Assigned Provider 02/29/24 Mena Mcwilliams, RN [address] [place] [address] [email or web address] i[employer] Domestic Travel Consultant 11/13/23 12/11/23 documented as of this encounter Additional Source Comments The information contained in this document represents components of the legal health record. It is not the complete legal health record.[facility]
--- OUTSIDE RECORDS SUMMARY | 2025-04-05 13:38 | XMS_ITS | Encounter Summary ---
Author Organization [facility] Address [address] [place] [address] [address] [place] [address] Phone Care Team Providers Care Client Delivery Specialist Name Role Phone Karlos Lyons MD Primary Care Provider Karlos Lyons MD Unavailable [phone] Omar Rocha MD Unavailable [phone] Sagar Leung MD Unavailable Karlos Lyons MD Primary Care Provider [phone] Yefri Hilliard MD Unavailable [phone] Karlos Murry MD Unavailable [phone] Sergey Tyson MD Primary Care Provider [phone] Apple Talavera MD Unavailable [phone] Sergey Tyson MD Unavailable Mena Mcwilliams RN Unavailable [phone] Reason for Referral * Outpatient Procedure - Closed Specialty Diagnoses / Procedures Referred By Jessica balbuena Referred To Contact Radiology Diagnoses Bilateral hand pain Complex regional pain syndrome type 1 of both upper extremities Procedures NM Bone Flow 3 Phase Omar Rocha MD Phone: tel: fax: mailto:[email or web address] Referral ID Status Reason Start Date Expiration Date Visits Re quested Visits Authorized [id number] Closed 04/17/2018 04/17/2019 1 1 Encounter Details Date Type Department Care Team (Late st Contact Info) Description 04/17/2018 Ancillary Orders Virtual Department [address] [place] [address] Omar Rocha MD [address] [place] [address] [email or web address] Bilateral hand pain; Complex regional pain syndrome [...] Contact Info) Description 03/18/2024 Procedure Pass [address] [address] 04/13/2025 9:00 AM EDT Office Visit [facility] Internal Medicine [address] [place] [address] Sergey Tyson MD 40 [place] [address] 04/21/2025 3:00 PM EDT Appointment [address] [address] Apple Talavera MD [address] [place] [address] [email or web address] 04/27/2025 8:30 AM EDT Office Visit [facility] [place] [address] [address] Apple Talavera MD 30 [place] [address] [email or web address] documented as of this encounter Results * [...] swelling POS - [id number] Omar Rocha MD [facility] BONE SCAN Final Result documented in this encounter Visit Diagnoses Diagnosis Bilateral hand pain Complex regional pain syndrome type 1 of both upper extremities Bilateral hand pain Complex regional pain syndrome type 1 of both upper extremities documented in this encounter Additional Health Concerns Infection Onset Date Last Indicated Resolved Time CoV-Risk 05/07/2022 05/07/2022 05/18/2022 1:24 AM EDT documented as of this encounter Care Teams Client Delivery Specialist Relationship Specialty Start Date End Date Karlos Lyons MD [address] [address] [email or web address] PCP - General Internal Medicine 07/14/14 05/07/21 Karlos Lyons MD [address] [address] [email or web address] PCP - General Internal Medicine 05/08/21 05/09/22 Sergey Tyson MD [address] [place] [address] [email or web address] PCP - General Internal Medicine 05/10/22 Karlos Lyons MD [address] [place] [address] [email or web address] Insurance Assigned Provider 02/23/17 03/02/23 Omar Rocha MD [address] [place] [address] [email or web address] 05/08/21 Sagar Leung MD [address] [place] [address] [email or web address] Obstetrics and Gynecology 05/08/21 Yefri Hilliard MD [address] [place] [address] Endocrinology 05/08/21 Karlos Murry MD [address] [place] [address] [email or web address] Gastroenterology 02/27/22 Apple Talavera MD [address] [place] [address] [email or web address] Primary Oncologist Medical Oncology 02/19/23 Sergey Tyson MD 40 [place] [address] [email or web address] Insurance Assigned Provider 02/29/24 Mena Mcwilliams, RUSS [address] [place] [address] [email or web address] i[employer] Nurse Rn Bsn 11/13/23 12/11/23 documented as of this encounter Additional Source Comments The information contained in this document represents components of the legal health record. It is not the complete legal health record.[facility]
[2025-04-09 20:18] LABS: Calprotectin, Fecal 88 mcg/g
== END 2025-04-05 13:17 | disposition home or self-care (01) ==
LOC: HO.LNP 13:16
PROVIDERS: Visit Provider Nurse Practitioner
DX: K90.9 Intestinal malabsorption, unspecified (principal); R19.7 Diarrhea, unspecified
CPT/HCPCS: 83993

== ENCOUNTER 2025-04-15 07:37 | Outpatient (REF) | payer MEDICARE, BC, SELFPAY ==
--- NOTE | ~2025-04-15 | CT_ITS ---
CLINICAL HISTORY: RALES,ABNORMAL FINDINGS ON IMAGINS CT chest without contrast Comparison: CR/SR - XR CHEST 2V - 03/30/25 11:[address]/[place]J/SR - CT ABDOMEN PELVIS WO IV CON - 03/30/25 10:36 EDT Findings: The heart is normal size. The visualized thyroid and mediastinum are unremarkable. Multiple bilateral opacities of the bilateral lung parenchyma. The visualized upper abdomen is unremarkable. The bones are intact. IMPRESSION: Bilateral multifocal pneumonia. Imaging follow-up is recommended to confirm resolution. This document has been electronically signed by: Jordan Hidalgo MD on 04/15/2025 14:26:13
--- OUTSIDE RECORDS SUMMARY | 2025-04-15 07:39 | XMS_ITS | Clinical Summary ---
Author Organization [facility] Address [address] [place] [address] Phone Care Team Providers Care Machine Operator Name Role Phone Sergey Tyson MD Primary Care Provider Social History Tobacco Use Types Packs/Day Years [...] age to complete this topic Insurance MEDICARE [facility] Care Teams Machine Operator Relationship Specialty Start Date End Date Sergey Tyson MD [address] [place] [address] PCP - General Internal Medicine 12/24/24
== END 2025-04-15 07:38 | disposition home or self-care (01) ==
LOC: HO.CT 07:37
PROVIDERS: PCP Internal Medicine; Visit Provider Internal Medicine
DX: R09.89 Other specified symptoms and signs involving the circulatory and respiratory systems (principal)
CPT/HCPCS: 71250

== ENCOUNTER → 2025-04-15 07:40 | Outpatient (BNV) | payer MEDICARE, BC, SELFPAY | PROVIDERS: PCP Internal Medicine; Visit Provider Nuclear Medicine | DX: J18.9 Pneumonia, unspecified organism (principal) | CPT/HCPCS: 71250 ==

== ENCOUNTER → 2025-04-16 07:52 | Outpatient (REF) | payer MEDICARE, BC, SELFPAY ==
--- NOTE | ~2025-04-16 | NM_ITS ---
EXAMINATION: NM HEPATOBILIARY WITH PHARM HISTORY: R10.11 - Right upper quadrant pain. TECHNIQUE: An hepatobiliary scan was performed following the intravenous administration of 5 mCi technetium 99m-mebrofenin. Sequential images were obtained over 1 hour. Subsequently, the patient received 1.0 microgram of IV CCK over 30 minutes and additional imaging was performed. COMPARISON: Correlation is made with an unenhanced CT of the abdomen dated 03/30/2025. FINDINGS: There is normal uptake and excretion of the radiopharmaceutical by the liver. Gallbladder activity is noted at 18 minutes. Common bile duct activity is seen at 12 minutes. Small bowel activity is noted at 35 minutes. After the administration of intravenous CCK, the estimated gallbladder ejection fraction is 66%, which is within normal limits (normal 35-80%). NM/NM hepatobiliary w pharm IMPRESSION: Normal hepatobiliary scan with normal gallbladder ejection fraction. Electronically signed by: Blue Parson MD 04/16/2025 11:14 AM EDT
--- OUTSIDE RECORDS SUMMARY | 2025-04-16 07:53 | XMS_ITS | Encounter Summary ---
Author Organization [facility] Address [address] [place] [address] Care Team Providers Care Director Of Professional Services Name Role Phone Sergey Tyson MD Primary Care Provider [phone] Encounter Details Date Type Department Care Team (Late st Contact Info) Description 12/24/2024 Lab Requisition [facility] - Main Lab [address] [facility] [place] [address] [facility] [place] [address] [place] [address] Calculus of kidney Social History Tobacco Use [...] LAB CHEMISTRY METHOD 12/24/2024 7:29 PM EST [facility] Blood Venous blood specimen / Unknown 12/24/2024 2:15 PM EST 12/24/2024 6:35 PM EST [facility] [place] LAB BLOOD ORDERABLES Final Re sult Performing Organization Address City/[facility]/ZIP Co de Phone Number [facility] [address] [place] [address], [place] [phone] * Parathyroid hormone intact (12/24/2024 2:15 PM EST) PTH 36.6 18.5 - 88.0 pcg/mL LAB CHEMISTRY METHOD 12/24/2024 7:29 PM EST [facility] Blood Venous blood specimen / Unknown 12/24/2024 2:15 PM EST 12/24/2024 6:35 PM EST [facility] [place] LAB BLOOD ORDERABLES Final Re sult Performing Organization Address [facility]/ZIP Co de Phone Number [facility] [address] [place] [address], [place] [phone] documented in this encounter Visit Diagnoses Diagnosis Calculus of kidney documented in this encounter Care Teams Director Of Professional Services Relationship Specialty Start Date End Date Sergey Tyson MD [address] [place] [address] PCP - General Internal Medicine 12/24/24 documented as of this encounter
== END ==
LOC: HO.NUCMED 07:52
PROVIDERS: PCP Internal Medicine; Visit Provider Nurse Practitioner
DX: R10.11 Right upper quadrant pain (principal); K90.9 Intestinal malabsorption, unspecified; A04.8 Other specified bacterial intestinal infections
CPT/HCPCS: 78227; A9537; J2805

== ENCOUNTER → 2025-04-16 07:54 | Outpatient (BNV) | payer MEDICARE, BC, SELFPAY | PROVIDERS: PCP Internal Medicine; Visit Provider Radiology Diagnostic Radiology | DX: R10.11 Right upper quadrant pain (principal) | CPT/HCPCS: 78227 ==

== ENCOUNTER 2025-05-05 09:52 | Outpatient (AMB) | payer BC, MEDICARE, SELFPAY ==
--- NOTE | 2025-05-05 09:58 | A.OFFVIS_ITS ---
Vital Signs 05/05/25 09:59 Height 5 ft 6 in Weight 113 lb BMI 18.2 BP 162/84 H Blood Pressure Location Rt brachial Position Sitting Pulse 76 Pulse Source Pulse Oximeter Pulse Oximetry (%) 96 Oxygen Delivery Method Room Air Intake Visit Reasons: 4 wks f/u Intake Note: Established patient for mgmt of chronic abd pain. CC; C.O. persistence of chronic sx since last visit. Pt reports sx including gallbladder concerns, lower abd pain B/L, gas + bloating, and lack of appetite. Pt states that she had a period of a little less than a week with the abx where she was completely normal again and had a great increase in appetite and could eat anything she wanted. However, she has since regressed back to the state of her last OV. Insulation Mechanic Required: No Accompanied by: Family/Other Allergies adhesive tape Allergy (Verified 05/05/25 10:36) Unknown atenolol [From Tenormin] Allergy (Verified 05/05/25 10:36) Unknown cefaclor [From Ceclor] Allergy (Verified 05/05/25 10:36) Unknown Chocolate Allergy (Verified 05/05/25 10:36) Unknown ciprofloxacin [From Cipro] Allergy (Verified 05/05/25 10:36) Unknown colchicine Allergy (Verified 05/05/25 10:36) Unknown cortisone Allergy (Verified 05/05/25 10:36) Unknown dicyclomine Allergy (Verified 05/05/25 10:36) Unknown gabapentin Allergy (Verified 05/05/25 10:36) Unknown indomethacin Allergy (Verified 05/05/25 10:36) Unknown Iodinated Contrast Media [Contrast Dye] Allergy (Verified 05/05/25 10:36) Unknown latex Allergy (Verified 05/05/25 10:36) Unknown levofloxacin [From Levaquin] Allergy (Verified 05/05/25 10:36) Anaphylaxis lisinopril Allergy (Verified 05/05/25 10:36) Unknown monosodium glutamate Allergy (Verified 05/05/25 10:36) Unknown morphine Allergy (Verified 05/05/25 10:36) Unknown NSAIDS (Non-Steroidal Anti-Inflamma Allergy (Verified 05/05/25 10:36) Unknown penicillin G Allergy (Verified 05/05/25 10:36) Unknown perfume Allergy (Verified 05/05/25 10:36) Unknown povidone-iodine [From Betadine] Allergy (Verified 05/05/25 10:36) Unknown propranolol Allergy (Verified 05/05/25 10:36) Unknown Sulfa (Sulfonamide Antibiotics) Allergy (Verified 05/05/25 10:36) Unknown tamsulosin Allergy (Verified 05/05/25 10:36) Unknown tetracycline Allergy (Verified 05/05/25 10:36) Unknown tramadol Allergy (Verified 05/05/25 10:36) Unknown trazodone Allergy (Verified 05/05/25 10:36) Unknown triamcinolone Allergy (Verified 05/05/25 10:36) Unknown venom-honey bee Allergy (Verified 05/05/25 10:36) Unknown fentanyl patch Allergy (Uncoded 05/05/25 10:36) Unknown HPI HPI 4 wks f/u: Details: Assessment & Plan (1) RUQ abdominal pain: Code(s): R10.11 - Right upper quadrant pain Category: Medical (2) Fatty stools: Code(s): K90.9 - Intestinal malabsorption, unspecified Category: Medical (3) H. pylori infection: Comment: treated twice at [facility] Code(s): A04.8 - Other specified bacterial intestinal infections Category: Medical (4) Diarrhea: Code(s): R19.7 - Diarrhea, unspecified Category: Medical (5) Adult failure to thrive: Code(s): R62.7 - Adult failure to thrive Category: Medical (6) Weight loss, abnormal: Code(s): R63.4 - Abnormal weight loss Category: Medical Plan She is today with her daughter who is supportive. She was seen 03/30/2025 in our ER. She has been seen by [facility] GI for many years. She has a LLQ pain for about 4 years, but her current GI just skips over it. She also has greasy, orange stools and at times RUQ pain. She says her GB was open 4 cm w/o any plan or a dx. When she eats, she has force herself to eat because if she eats she will have severe pain in the LLQ about 24 mis after eating. It starts as a pressure that ramps up and then it will move across the lower abdomen and to her entire right upper quad. The pain will last all day. It will star with nausea, but she even if she does not eat, but is worse with coffee and food. Even water. He has a hx of H pylori, and it was treated w/o success. She says she was treated for it twice. She dehydrates easily as she can not push fluids. Her stool are mostly soft and gelatin like and about 4 times a month they are orange and diarrheal. She will also have severe burning across the lower abdomen. 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 She has dysphagia of the upper esophagus but also sticking at the GE jxn. She has not had any dilation or mention of esophageal manometry or heard the term achalasia. (however review of note seems to indicate she had an esophageal manometry so I will look for these results) She has not had food allergy testing, but trial of bentyl caused urinary retention and leg swelling. She had an EGD and she was told her GE jxn was too tight but they were not going to do anything about it. Colonoscopies only TA's. She apparently suffered for years w/o anyone thinking about H pylori or and EGD. They are very worried about her general nutrition and ability to continue with these problems and not have her general health deteriorate. She is currently being treated for pneumonia and is on antibiotics. She is always fatigued. She has been seen at various hospitals including [facility] and [facility]. Must request re please find records from [facility] Dr. Karlos Murry; [facility], [facility]? Phone (appointments): [phone]: ? ?Address: [address] [place] [address], [facility] [address], [place] [address]rjs:[phone] She has lost 35 LBS over 3 years. This is very life limiting. Foods that really set it off are spicy foods, chocolate. and it is better with not eating and she will have 4-5 relief. LIquids are easier as are things like yogurts. Ensure not good sits like a cannonball. She was good for a while after HP treatment, but then returned. She has a stron FHX of GB disease. To her knowledge she has never had a HIDA scan. She HAS had a GES that was normal. Her dtr is concerned that she needs scheduled IV or nutritional therapy. THis is a consideration. HER mother suffered similar sx and of a bleeding ulcer and had severe TICS. She DOES have some atherosclerosis ? blood flow to gut. Mirian has chronic back pain and is on oxycodone but this does not help her abdominal pain. She also has had bad belt with nephrolithiasis with past year obstruction and hydronephrosis. Because she has difficulty drinking she has makes her more prone to the formation of renal stones. ROV 4 weeks Orders: Orders [facility] Allergen Today A04.8 - Other specified bacterial intestinal infections, K90.9 - Intestinal malabsorption, unspecified, R10.11 - Right upper quadrant pain C Reactive Protein Today K90.9 - Intestinal malabsorption, unspecified, R19.7 - Diarrhea, unspecified NM hepatobiliary w pharm Today A04.8 - Other specified bacterial intestinal infections, K90.9 - Intestinal malabsorption, unspecified, R10.11 - Right upper quadrant pain Calprotectin, Fecal Today K90.9 - Intestinal malabsorption, unspecified, R19.7 - Diarrhea, unspecified LABS Laboratory Tests 04/05/25 07:40 Stool Calprotectin 88 Laboratory Tests 04/02/25 12:28 C-Reactive Protein 0.32 RAST PANEL SHOWS NO SIGNIFICANT FOOD ALLERGIES, FECAL TRACIE IS BORDERLINE ELEVATED, HIDA SCAN 04/16/2025 IMPRESSION: Normal hepatobiliary scan with normal gallbladder ejection fraction. 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 Symptoms tend to be nausea and vomiting, difficulty pushing fluids to stay hydrated, and IBS with gelatin like stooling that frequently is orange but also is frequently diarrheal. This was accompanied by severe burning across her lower abdomen. She has had severe weight loss and failure to thrive causing her potential nutritional deficiencies) Reviewed [facility] notes, Hx of SSBE and EEJG hypertensive delay pre achalasia but no tx discussed botox - will check with our MD's and/or refer. Apparently she has never been offered dilation and after consulting with our physicians it seems that Botox injections are not used so much recently because they cause scar tissue so it is either dilation or surgery. Mane has had pneumonia since she saw me and has been on 3 abx. Tetracycline helped her GI sx as well. I ate like a horse. DDX with this response could include SIBO or even r/t the anti-inflammatory properties of the cyclines with elevated fecal tracie/IBD vs microscopic colitis - RAST negative. Trial of imuran 100mg titrate. NO!! BUDESONIDE (Entocort) 6 MG NOT IMURAN - Spoke about probiotic she takes Activia. Pain/spasm RUQ ? bowel IBS - shredded stools, orange stools, diarrhea. No big bowel changes with the tetracycline. She is due for colonoscopy but she wants more towards November - potential EGD a nd speak to our MD's ? Botox injections or dilation. She brings up that she has a perceived mass RUQ which is painful to the touch and cosmetically bothersome to her, ? hernia vs lipoma or other - get limited US. Get IBD genetic studies. Wt loss continues, losing teeth. Dry heaving a great deal ekaterina in the am recently. She seems to think this is due to nutritional losses which could be as she is very slight. ROV 3 weeks. [facility] Medical History (Updated 05/05/25 @ 17:28 by WILMAR Mejia) RUQ abdominal pain Fatty stools H. pylori infection Esophageal spasm History of breast cancer History of vertebral compression fracture History of pelvic fracture History of thyroid irradiation History of basal cell cancer History of squamous cell carcinoma History of pyelonephritis Surgical History H/O bilateral mastectomy S/P rotator cuff repair Status post de Quervain release surgery H/O spinal fusion History of augmentation mammoplasty H/O cervical spinal arthrodesis H/O esophagogastroduodenoscopy H/O colonoscopy H/O section Social History Alcohol intake: never Patient Tobacco Use Status: Never used Tobacco Review of Systems Const Reports fatigue, Denies fever(s), Reports headache(s), Denies night sweats, Reports poor appetite and Reports weight loss ENT Denies dental pain, Reports dysphagia, Reports headache(s), Denies hearing loss, Denies mouth pain, Reports neck pain, Denies odynophagia, Denies throat swelling, Denies tongue swelling and Reports other (Poor dentition/losing teeth) Card Reports no additional complaints Resp Reports no additional complaints GI Details: Reports abdominal pain, Denies melena, Denies bloating, Denies hematochezia, Denies constipation, Denies GI cramping, Reports dysphagia, Denies excessive flatus, Denies early satiety, Denies heartburn, Reports diarrhea, Reports loose stools, Reports nausea, Denies odynophagia, Reports vomiting and Denies hematemesis Musc Reports back pain, Reports myalgias, Reports arthralgias, Reports neck pain and Reports stiffness Skin/Breast Denies pruritus, Denies lesions, Denies rash and Denies jaundice Neuro Reports headache(s) and Reports memory loss Psych Reports anxiety, Reports depression and Reports memory loss Endo Reports fatigue Aller/Immun Denies throat swelling and Denies tongue swelling Physical Exam Vital Signs: Last Vital Signs Pulse 76 05/05/25 09:59 BP 162/84 H 05/05/25 09:59 Pulse Ox 96 05/05/25 09:59 Oxygen Delivery Method Room Air 05/05/25 09:59 BMI result Body Mass Index 18.2 Results Reviewed Results Reviewed: Laboratory Tests 04/05/25 07:40 Stool Calprotectin 88 Laboratory Tests 04/02/25 12:28 C-Reactive Protein 0.32 RAST PANEL SHOWS NO SIGNIFICANT FOOD ALLERGIES, FECAL TRACIE IS BORDERLINE ELEVATED, HIDA SCAN 04/16/2025 IMPRESSION: Normal hepatobiliary scan with normal gallbladder ejection fraction. 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: Comment: On prior EGD performed by [facility]; they mention metaplasia in the note but I do not have the procedure biopsy Code(s): K22.70 - Mercado's esophagus without dysplasia Category: Medical (6) Hypertensive lower esophageal sphincter: Comment: From esophageal manometry performed by [facility] Code(s): K22.4 - Dyskinesia of esophagus Category: Medical (7) Multiple drug allergies: Code(s): Z88.9 - Allergy status to unspecified drugs, medicaments and biological substances Category: Medical (8) Diarrhea: Code(s): R19.7 - Diarrhea, unspecified Category: Medical Plan She is here today with her daughter who is supportive (summary of her complex case: mother strong history of peptic ulcer disease and from bleeding out; comorbid nephrolithiasis with past hydronephrosis and obstruction; chronic pain syndrome and chronic opiate use; normal gastric emptying study is [facility], esophageal manometry showing esophageal junction hypertension, 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 Symptoms tend to be nausea and vomiting, difficulty pushing fluids to stay hydrated, and IBS with gelatin like stooling that frequently is orange but also is frequently diarrheal. This was accompanied by severe burning across her lower abdomen. She has had severe weight loss and failure to thrive causing her potential nutritional deficiencies. She also has severe daily dysphagia limiting her ability to eat with food sticking both in the upper esophagus and at the GE junction) Reviewed [facility] notes, Hx of SSBE and EEJG hypertensive delay pre achalasia but no tx discussed botox - will check with our MD's and/or refer. Apparently she has never been offered dilation and after consulting with our physicians it seems that Botox injections are not used so much recently because they cause scar tissue so it is either dilation or surgery. Mane has had pneumonia since she saw me and has been on 3 abx. Tetracycline helped her GI sx as well. I ate like a horse. DDX with this response could include SIBO or even r/t the anti-inflammatory properties of the cyclines with elevated fecal tracie/IBD vs microscopic colitis - RAST negative. Trial of imuran 100mg titrate. NO!! BUDESONIDE (Entocort) 6 MG NOT IMURAN - Spoke about probiotic she takes Activia. Pain/spasm RUQ ? bowel IBS - shredded stools, orange stools, diarrhea. No big bowel changes with the tetracycline. She is due for colonoscopy but she wants more towards November - potential EGD and speak to our MD's ? Botox injections or dilation. She brings up that she has a perceived mass RUQ which is painful to the touch and cosmetically bothersome to her, ? hernia vs lipoma or other - get limited US. Get IBD genetic studies. Wt loss continues, losing teeth. Dry heaving a great deal ekaterina in the am recently. She seems to think this is due to nutritional losses which could be as she is very slight. ROV 3 weeks. Orders: Orders [facility] Today R19.5 - Other fecal abnormalities, R62.7 - Adult failure to thrive, R63.4 - Abnormal weight loss [facility] Today R19.5 - Other fecal abnormalities, R62.7 - Adult failure to thrive, R63.4 - Abnormal weight loss US abdomen limited Today R19.01 - Right upper quadrant abdominal swelling, mass and lump Medications: New budesonide DR-ER PLEASE DISREGARD IMURAN/AZATHIOPRINE RX 6 mg (2 x 3 mg) PO DAILY 60 ea 6RF R19.5 - Other fecal abnormalities Coding Level of Care Code Est Pt Level 4 (09153) Diagnoses Elevated fecal calprotectin R19.5 Adult failure to thrive R62.7 Weight loss, abnormal R63.4 RUQ abdominal mass R19.01 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
[2025-05-05 09:59] VITALS: BP 162/84; PULSE 76; O2SAT 96; BMI 18.2
--- OUTSIDE RECORDS SUMMARY | 2025-05-05 10:58 | XMS_ITS | Encounter Summary ---
Author Organization [facility] Address [address] [place] [address] Care Team Providers Care Coordinator Volunteer Services Name Role Phone Sergey Tyson MD Primary Care Provider [phone] Encounter Details Date Type Department Care Team (Late st Contact Info) Description 12/24/2024 Lab Requisition [facility] - Main Lab [address] [facility] [place] [address] [facility] [address] [place] [address] Calculus of kidney Social History Tobacco Use [...] LAB CHEMISTRY METHOD 12/24/2024 7:29 PM EST [facility] Blood Venous blood specimen / Unknown 12/24/2024 2:15 PM EST 12/24/2024 6:35 PM EST [facility] [place] LAB BLOOD ORDERABLES Final Re sult Performing Organization Address City/[facility]/ZIP Co de Phone Number [facility] [address] [place] [address], [place] [phone] * Parathyroid hormone intact (12/24/2024 2:15 PM EST) PTH 36.6 18.5 - 88.0 pcg/mL LAB CHEMISTRY METHOD 12/24/2024 7:29 PM EST [facility] Blood Venous blood specimen / Unknown 12/24/2024 2:15 PM EST 12/24/2024 6:35 PM EST [facility] [place] LAB BLOOD ORDERABLES Final Re sult Performing Organization Address [facility]/ZIP Co de Phone Number [facility] [address] [place] [address], [place] [phone] documented in this encounter Visit Diagnoses Diagnosis Calculus of kidney documented in this encounter Care Teams Coordinator Volunteer Services Relationship Specialty Start Date End Date Sergey Tyson MD [address] [place] [address] PCP - General Internal Medicine 12/24/24 documented as of this encounter
== END 2025-05-05 11:49 | disposition home or self-care (01) ==
LOC: HO.HGI 09:53
PROVIDERS: PCP Internal Medicine; Visit Provider Nurse Practitioner
DX: R19.5 Other fecal abnormalities (principal); R62.7 Adult failure to thrive; R63.4 Abnormal weight loss; R19.01 Right upper quadrant abdominal swelling, mass and lump; K22.70 Barrett's esophagus without dysplasia; K22.4 Dyskinesia of esophagus; Z88.9 Allergy status to unspecified drugs, medicaments and biological substances; R19.7 Diarrhea, unspecified
CPT/HCPCS: 99214

== ENCOUNTER 2025-05-05 09:52 | Outpatient (REF) | payer MEDICARE, BC, SELFPAY | END 2025-05-05 09:53 | disposition home or self-care (01) | LOC: HO.LAB 09:52 | PROVIDERS: PCP Internal Medicine; Visit Provider Nurse Practitioner | DX: R19.5 Other fecal abnormalities (principal); R62.7 Adult failure to thrive; R63.4 Abnormal weight loss | CPT/HCPCS: 36415; 81335; 81479; 82397; 83520; 86140; 88346; 88350 ==

== ENCOUNTER 2025-05-22 09:48 | Outpatient (REF) | payer MEDICARE, BC, SELFPAY ==
--- NOTE | ~2025-05-22 | CT_ITS ---
CLINICAL HISTORY: Abnormal Imaging CT chest without contrast Comparison: CT/SR - CT CHEST WO IV CON - 04/15/25 07:48 EDT Findings: The heart size is normal. The visualized thyroid and mediastinum are unremarkable. Interval improvement in patchy consolidation of lung bases with mild residual opacities. The visualized upper abdomen is unremarkable. The bones are intact. IMPRESSION: Interval improvement in bibasilar patchy consolidation, consistent with resolving multifocal pneumonia. This document has been electronically signed by: Doris Cueva MD on 05/25/2025 20:12:52
== END 2025-05-22 09:49 | disposition home or self-care (01) ==
LOC: HO.CT 09:48
PROVIDERS: PCP Internal Medicine; Visit Provider Internal Medicine
DX: R93.89 Abnormal findings on diagnostic imaging of other specified body structures (principal)
CPT/HCPCS: 71250

== ENCOUNTER → 2025-05-22 10:00 | Outpatient (BNV) | payer MEDICARE, BC, SELFPAY | PROVIDERS: PCP Internal Medicine; Visit Provider Student in an Organized Health Care Education/Training Program | DX: R91.8 Other nonspecific abnormal finding of lung field (principal) | CPT/HCPCS: 71250 ==

== ENCOUNTER 2025-05-26 10:41 | Outpatient (AMB) | payer BC, MEDICARE, SELFPAY ==
--- NOTE | 2025-05-26 10:52 | A.OFFVIS_ITS ---
Vital Signs 05/26/25 10:57 Height 5 ft 6 in Weight 113 lb 8 oz BMI 18.3 BP 137/63 Position Sitting Pulse 102 H Pulse Oximetry (%) 97 Oxygen Delivery Method Room Air Intake Visit Reasons: 3 wks f/u Intake Note: Patient 3 weeks follow up for Adult failure to thrive Patient cc: abdominal pain with bloating on and off with orange diarrhea, food and med are getting stuck on her throat and her esophagus, she is eating better. Patient said she have a mammogram in [facility] ?? she would like to discuss with you, also she is complaing on bumps on her tip off finger nail ?? Allergies adhesive tape Allergy (Verified 05/26/25 10:49) Unknown atenolol (From Tenormin) Allergy (Verified 05/26/25 10:49) Unknown cefaclor (From Ceclor) Allergy (Verified 05/26/25 10:49) Unknown Chocolate Allergy (Verified 05/26/25 10:49) Unknown ciprofloxacin (From Cipro) Allergy (Verified 05/26/25 10:49) Unknown colchicine Allergy (Verified 05/26/25 10:49) Unknown cortisone Allergy (Verified 05/26/25 10:49) Unknown dicyclomine Allergy (Verified 05/26/25 10:49) Unknown gabapentin Allergy (Verified 05/26/25 10:49) Unknown indomethacin Allergy (Verified 05/26/25 10:49) Unknown Iodinated Contrast Media (Contrast Dye) Allergy (Verified 05/26/25 10:49) Unknown latex Allergy (Verified 05/26/25 10:49) Unknown levofloxacin (From Levaquin) Allergy (Verified 05/26/25 10:49) Anaphylaxis lisinopril Allergy (Verified 05/26/25 10:49) Unknown monosodium glutamate Allergy (Verified 05/26/25 10:49) Unknown morphine Allergy (Verified 05/26/25 10:49) Unknown NSAIDS (Non-Steroidal Anti-Inflamma Allergy (Verified 05/26/25 10:49) Unknown penicillin G Allergy (Verified 05/26/25 10:49) Unknown perfume Allergy (Verified 05/26/25 10:49) Unknown povidone-iodine (From Betadine) Allergy (Verified 05/26/25 10:49) Unknown propranolol Allergy (Verified 05/26/25 10:49) Unknown Sulfa (Sulfonamide Antibiotics) Allergy (Verified 05/26/25 10:49) Unknown tamsulosin Allergy (Verified 05/26/25 10:49) Unknown tetracycline Allergy (Verified 05/26/25 10:49) Unknown tramadol Allergy (Verified 05/26/25 10:49) Unknown trazodone Allergy (Verified 05/26/25 10:49) Unknown triamcinolone Allergy (Verified 05/26/25 10:49) Unknown venom-honey bee Allergy (Verified 05/26/25 10:49) Unknown fentanyl patch Allergy (Uncoded 05/05/25 10:36) Unknown HPI HPI 3 wks f/u: Details: Assessment & Plan (1) Elevated fecal calprotectin: Code(s): R19.5 - Other fecal abnormalities Category: Medical (2) Adult failure to thrive: Code(s): R62.7 - Adult failure to thrive Category: Medical (3) Weight loss, abnormal: Code(s): R63.4 - Abnormal weight loss Category: Medical (4) RUQ abdominal mass: Code(s): R19.01 - Right upper quadrant abdominal swelling, mass and lump Category: Medical (5) 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: Comment: On prior EGD performed by [facility]; they mention metaplasia in the note but I do not have the procedure biopsy Code(s): K22.70 - Mercado's esophagus without dysplasia Category: Medical (6) Hypertensive lower esophageal sphincter: Comment: From esophageal manometry performed by [facility] Code(s): K22.4 - Dyskinesia of esophagus Category: Medical (7) Multiple drug allergies: Code(s): Z88.9 - Allergy status to unspecified drugs, medicaments and biological substances Category: Medical (8) Diarrhea: Code(s): R19.7 - Diarrhea, unspecified Category: Medical Plan She is here today with her daughter who is supportive (summary of her complex case: mother strong history of peptic ulcer disease and from bleeding out; comorbid nephrolithiasis with past hydronephrosis and obstruction; chronic pain syndrome and chronic opiate use; normal gastric emptying study is [facility], esophageal manometry showing esophageal junction hypertension, history of Mercado's metaplasia on past EGD at [facility], history of H pylori infection treated twice but she was told had cleared, studies performed at [facility] show no significant food allergies, a borderline elevated fecal calprotectin, a normal CRP, and a normal HIDA scan. Symptoms tend to be nausea and vomiting, difficulty pushing fluids to stay hydrated, and IBS with gelatin like stooling that frequently is orange but also is frequently diarrheal. This was accompanied by severe burning across her lower abdomen. Anita dawn has had severe weight loss and failure to thrive causing her potential nutritional deficiencies. She also has severe daily dysphagia limiting her ability to eat with food sticking both in the upper esophagus and at the GE junction) Reviewed [facility] GI notes, Hx of SSBE and EEJG hypertensive delay pre achalasia but no tx discussed botox - will check with our MD's and/or refer. Apparently she has never been offered dilation and after consulting with our physicians it seems that Botox injections are not used so much recently because they cause scar tissue so it is either dilation or surgery. Mane has had pneumonia since she saw me and has been on 3 abx. Tetracycline helped her GI sx as well. I ate like a horse. DDX with this response could include SIBO or even r/t the anti-inflammatory properties of the cyclines with elevated fecal saad/IBD vs microscopic colitis - RAST negative. Trial of imuran 100mg titrate. NO!! BUDESONIDE (Entocort) 6 MG NOT IMURAN - Spoke about probiotic she takes Activia. Pain/spasm RUQ ? bowel IBS - shredded stools, orange stools, diarrhea. No big bowel changes with the tetracycline. She is due for colonoscopy but she wants more towards November - potential EGD and speak to our MD's ? Botox injections or dilation. She brings up that she has a perceived mass RUQ which is painful to the touch and cosmetically bothersome to her, ? hernia vs lipoma or other - get limited US. Get IBD genetic studies. Wt loss continues, losing teeth. Dry heaving a great deal ekaterina in the am recently. She seems to think this is due to nutritional losses which could be as she is very slight. ROV 3 weeks. Orders: Orders [facility] Today R19.5 - Other fecal abnormalities, R62.7 - Adult failure to thrive, R63.4 - Abnormal weight loss [facility] Today R19.5 - Other fecal abnormalities, R62.7 - Adult failure to thrive, R63.4 - Abnormal weight loss US abdomen limited Today R19.01 - Right upper quadrant abdominal swelling, mass and lump Medications: New budesonide DR-ER PLEASE DISREGARD IMURAN/AZATHIOPRINE RX 6 mg (2 x 3 mg) PO DAILY 60 ea 6RF R19.5 - Other fecal abnormalities LABS [facility] neg for IBD ULTRASOUND OF THE ABDOMEN 03/30/2025 FINDINGS: Gallbladder is fluid-filled. No pericholecystic fluid collection or gallbladder wall thickening. Common bile duct measures 8 mm. No intraluminal abnormality. No gross ascites. US/US abdomen limited IMPRESSION: No cholelithiasis. No choledocholithiasis. HIDA SCAN 04/16/2025 FINDINGS: There is normal uptake and excretion of the radiopharmaceutical by the liver. Gallbladder activity is noted at 18 minutes. Common bile duct activity is seen at 12 minutes. Small bowel activity is noted at 35 minutes. After the administration of intravenous CCK, the estimated gallbladder ejection fraction is 66%, which is within normal limits (normal 35-80%). NM/NM hepatobiliary w pharm IMPRESSION: Normal hepatobiliary scan with normal gallbladder ejection fraction. TODAY'S VISIT She is here today with her daughter who is supportive She is doing better! She has only had 4 episodes of diarrhea since she started the budesonide. She has more energy, her cough has cleared and her hair is not falling out. 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 She did well on axid in past and we will try to get this or change away from possible diarrheal class affect of omeprazole. Her dtr is in agreement. Her mother is eating better and looks better. I think we should get a repeat EGD/colonoscopy for further investigation and she is quite agreeable to this. This would also be a good idea since she has a history of Barretts esophagus. Her swallowing is generally better but we still have that somewhat concerning finding on esophageal manometry of a hypertensive gastroesophageal junction. There are no prior problems with anesthesia or sedation. She denies any cardiac or respiratory problems. There are no infectious disease problems. For now we are going to increase the budesonide to 3 a day, I had approach this at a lower dose initially because of her low body mass but since she is still having some breakthrough I think she will be able to tolerate the higher dose. She has had no reported adverse effects from the steroid and we do try to use budesonide to spare systemic effects although it also can have some long-term risks. ROV 6 weeks. [facility] Medical History (Updated 05/05/25 @ 17:28 by WILMAR Mejia) RUQ abdominal pain Fatty stools H. pylori infection Esophageal spasm History of breast cancer History of vertebral compression fracture History of pelvic fracture History of thyroid irradiation History of basal cell cancer History of squamous cell carcinoma History of pyelonephritis Surgical History H/O bilateral mastectomy S/P rotator cuff repair Status post de Quervain release surgery H/O spinal fusion History of augmentation mammoplasty H/O cervical spinal arthrodesis H/O esophagogastroduodenoscopy H/O colonoscopy H/O section Social History Alcohol intake: never Patient Tobacco Use Status: Never used Tobacco Review of Systems Const Denies fatigue, Denies fever(s), Denies night sweats, Denies poor appetite, Reports weight gain and Denies weight loss Eyes Details: Glasses Reports requires corrective lenses ENT Reports Normal hearing present, Denies dental pain, Reports dysphagia, Denies hearing loss, Denies mouth pain, Denies odynophagia, Denies throat swelling, Denies tongue swelling and Reports other (Dentition adequate) Card Reports no additional complaints Resp Reports no additional complaints GI Details: Denies abdominal pain, Denies melena, Denies bloating, Denies hematochezia, Denies constipation, Denies GI cramping, Reports dysphagia, Denies excessive flatus, Denies early satiety, Reports heartburn, Reports diarrhea, Reports nausea, Denies odynophagia, Denies vomiting and Denies hematemesis Skin/Breast Denies pruritus, Denies lesions, Denies rash and Denies jaundice Neuro Reports Normal hearing present and Denies Abnormal speech present Endo Denies fatigue Aller/Immun Denies throat swelling and Denies tongue swelling Physical Exam Vital Signs: Last Vital Signs Pulse 102 H 05/26/25 10:57 BP 137/63 05/26/25 10:57 Pulse Ox 97 05/26/25 10:57 Oxygen Delivery Method Room Air 05/26/25 10:57 BMI result Body Mass Index 18.3 Const General: cooperative, no acute distress, well developed and well groomed Nutritional Appearance: well nourished, thin and underweight Orientation/consciousness: oriented to person, oriented to place and oriented to time Limitations: No language barrier HEENT Head: Yes normocephalic and Yes atraumatic Eyes General: appearance normal, both eyes and all related structures Pupils: Equal, round and reactive pupils present Neck Neck: Yes normal visual inspection and Yes no lymphadenopathy Thyroid: Thyroid normal Resp Effort & Inspection: normal respiratory effort and able to speak in complete sentences Auscultation: clear to auscultation bilaterally Cardio Rate: regular rate Rhythm: regular rhythm Heart sounds: Normal, physiologic split S2 sound present Peripheral pulses: radial pulses present and posterior tibial pulses present GI Inspection: No distended and No Abdominal panniculus present Palpation (GI): Soft to palpation, nontender, no guarding, not rigid and No hepatosplenomegaly present Percussion: Yes normal to percussion Auscultation: normal bowel sounds Rectal Exam - Female: deferred Skin General skin exam: no rashes or lesions noted, turgor normal, skin not dry, no jaundice, No spider nevi and no striae Rashes: no rashes Nails: normal Neuro General: oriented to person, oriented to place and oriented to time Cranial nerves: Yes Equal, round and reactive pupils present and Yes Normal hearing present Speech: No Abnormal speech present Extrem General: Yes normal to inspection, No clubbing, No cyanosis and No edema Psych Appearance: grossly normal and well kempt Mental Status: mental status grossly normal Speech and movement: Normal speech and movement present Affect: normal affect Attitude: cooperative Thought process: Normal thought process present and not confabulating Thought content: Normal thought content present Insight: Fair insight present (Psych) Judgement: Fair judgement present (Psych) Assessment & Plan Assessment & Plan (1) Weight loss, abnormal: Code(s): R63.4 - Abnormal weight loss Category: Medical (2) Adult failure to thrive: Code(s): R62.7 - Adult failure to thrive Category: Medical (3) Diarrhea: Code(s): R19.7 - Diarrhea, unspecified Category: Medical (4) Elevated fecal calprotectin: Code(s): R19.5 - Other fecal abnormalities Category: Medical (5) Tubular adenoma of colon: Code(s): D12.6 - Benign neoplasm of colon, unspecified Category: Medical (6) 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 She has only had 4 episodes of diarrhea since she started the budesonide. She has more energy, her cough has cleared and her hair is not falling out. She still has waves of nausea and since this is of uncertain origin I am do not know if this may improve over time. However, she finds it all much more tolerable, and only has very mild abdominal flank pain at this point. 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 She did well on axid in past and we will try to get this or change away from possible diarrheal class affect of omeprazole. Her dtr is in agreement. Her mother is eating better and looks better. I think we should get a repeat EGD/colonoscopy for further investigation and she is quite agreeable to this. This would also be a good idea since she has a history of Barretts esophagus. Her swallowing is generally better but we still have that somewhat concerning finding on esophageal manometry of a hypertensive gastroesophageal junction. There are no prior problems with anesthesia or sedation. She denies any cardiac or respiratory problems. There are no infectious disease problems. For now we are going to increase the budesonide to 3 a day, I had approach this at a lower dose initially because of her low body mass but since she is still having some breakthrough I think she will be able to tolerate the higher dose. She has had no reported adverse effects from the steroid and we do try to use budesonide to spare systemic effects although it also can have some long-term risks. ROV 6 weeks. She also knows that she has an upcoming investigation for a slightly abnormal mammogram. Orders: Orders EGD/[place] [facility] - GI Use Only Today D12.6 - Benign neoplasm of colon, unspecified, K22.4 - Dyskinesia of esophagus, K22.70 - Mercado's esophagus without dysplasia, R19.7 - Diarrhea, unspecified Medications: New nizatidine 300 mg PO BEDTIME 90 caps 1RF 90 days nizatidine 300 mg PO BEDTIME 30 caps 6RF Changed From budesonide DR-ER PLEASE DISREGARD IMURAN/AZATHIOPRINE RX 6 mg (2 x 3 mg) PO DAILY 60 ea 6RF R19.5 - Other fecal abnormalities To budesonide DR-ER PLEASE DISREGARD IMURAN/AZATHIOPRINE RX 9 mg (3 x 3 mg) PO DAILY 90 ea 6RF R19.5 - Other fecal abnormalities Coding Level of Care Code Est Pt Level 4 (77140) Diagnoses Weight loss, abnormal R63.4 Adult failure to thrive R62.7 Diarrhea R19.7 Elevated fecal calprotectin R19.5 Tubular adenoma of colon D12.6 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
[2025-05-26 10:57] VITALS: BP 137/63; PULSE 102; O2SAT 97; BMI 18.3
--- OUTSIDE RECORDS SUMMARY | 2025-05-26 11:22 | XMS_ITS | Encounter Summary ---
Author Organization [facility] Address [address] [place] [address] Care Team Providers Care Manager Trade Name Role Phone Sergey Tyson MD Primary Care Provider [phone] Encounter Details Date Type Department Care Team (Late st Contact Info) Description 12/24/2024 Lab Requisition [facility] Lab [address] [facility] [place] [address] [facility] [address] [place] [address] Calculus of kidney Social History Tobacco Use [...] 7:29 PM EST [facility] Blood Venous blood specimen / Unknown 12/24/2024 2:15 PM EST 12/24/2024 6:35 PM EST [facility] LAB BLOOD ORDERABLES Final Re sult Performing Organization Address City/[facility]/ZIP Co de Phone Number [facility] [address] [place] [address], [place] [phone] * Parathyroid hormone intact (12/24/2024 2:15 PM EST) PTH 36.6 18.5 - 88.0 pcg/mL LAB CHEMISTRY METHOD 12/24/2024 7:29 PM EST [facility] Blood Venous blood specimen / Unknown 12/24/2024 2:15 PM EST 12/24/2024 6:35 PM EST [facility] LAB BLOOD ORDERABLES Final Re sult Performing Organization Address [facility]/ZIP Co de Phone Number [facility] [address] [place] [address], [place] [phone] documented in this encounter Visit Diagnoses Diagnosis Calculus of kidney documented in this encounter Care Teams Manager Trade Relationship Specialty Start Date End Date Sergey Tyson MD [address] [place] [address] PCP - General Internal Medicine 12/24/24 documented as of this encounter
== END 2025-05-26 11:50 | disposition home or self-care (01) ==
LOC: HO.HGI 10:42
PROVIDERS: PCP Internal Medicine; Visit Provider Nurse Practitioner
DX: R63.4 Abnormal weight loss (principal); R62.7 Adult failure to thrive; R19.7 Diarrhea, unspecified; R19.5 Other fecal abnormalities; D12.6 Benign neoplasm of colon, unspecified; K22.70 Barrett's esophagus without dysplasia; K22.4 Dyskinesia of esophagus
CPT/HCPCS: 99214

== ENCOUNTER 2025-07-09 10:55 | Outpatient (AMB) | payer BC, MEDICARE, SELFPAY ==
--- OUTSIDE RECORDS SUMMARY | 2025-07-09 11:02 | XMS_ITS | Encounter Summary ---
Author Organization [facility] Address [address] [place] [address] [address] [place] [address] Phone Care Team Providers Care Foundry Superintendant Name Role Phone Karlos Lyons MD Primary Care Provider Karlos Lyons MD Unavailable [phone] Omar Rocha MD Unavailable [phone] Sagar Leung MD Unavailable Karlos Lyons MD Primary Care Provider + [phone] Yefri Hilliard MD Unavailable [phone] Karlos Murry MD Unavailable [phone] Sergey Tyson MD Primary Care Provider Apple Talavera MD Unavailable [phone] Sergey Tyson MD Unavailable Mena Mcwilliams RN Unavailable [phone] Encounter Details Date Type Department Care Team (Late st Contact Info) Description 08/06/2020 Procedure Pass [facility], [address] [id number] Social History Tobacco Use Types Packs/Day Years [...] Upcoming Encounters Date Type Department Care Team (Latest Contact Info) Description 07/19/2025 11:30 AM EDT Appointment [facility], X-Ray - Main Hospital [address] [place] [address] Rj Leiva MD [address] [place] [address] [email or web address] 07/19/2025 12:30 PM EDT Hospital Encounter [facility] [address] [place] [address] Rj Leiva MD [address] [place] [phone] [email or web address] 07/27/2025 10:00 AM EDT Office Visit [facility] Internal Medicine [address] [place] [address] Sergey Tyson MD [address] [place] [address] 09/02/2025 9:30 AM EDT Office Visit [facility] Rehabilitation Services [address] [place] [address] Sergey Tyson MD [address] [place] [address] Lorri Keenan, CCC-GLASS VIAL FILLER [address] [place] [address] 09/09/2025 8:30 AM EDT Office Visit [facility] [address] [place] [address] Sergey Tyson MD [address] [place] [address] Lorri Keenan CCC-GLASS VIAL FILLER [address] [place] [address] 09/16/2025 8:30 AM EDT Office Visit [facility] 8 [place] [address] Sergey Tyson MD [address] [place] [address] Lorri Keenan [employer]-GL[employer] VIAL F[employer]ER [address] [place] [address] 09/23/2025 9:30 AM EDT Office Visit [facility] 8 [place] [address] Sergey Tyson MD [address] [place] [address] Lorri Keenan CCC-GLASS VIAL FILLER [address] [place] [address] 10/01/2025 10:30 AM EST Office Visit [address] [place] [address] Sergey Tyson MD [address] [place] [address] Lorri Keenan CCC-GLASS VIAL FILLER [address] [place] [address] 10/08/2025 10:30 AM EST Office Visit [facility] [address] [place] [address] Sergey Tyson MD [address] [place] [address] Lorri Keenan CCC-GLASS VIAL FILLER 8 [place] [address] 10/11/2025 1:30 PM EST Office Visit [facility] Pulmonary, Allergy and Critical Care Medicine [address] [place] [address] Rj Leiva MD [address] [place] [address] [email or web address] 10/15/2025 10:30 AM EST Office Visit [facility] [address] [place] [address] Sergey Tyson MD [address] [place] [address] Lorri Keenan [employer]-GLASS VIAL FILLER 8 [place] [address] 10/18/2025 8:30 AM EST Office Visit [facility] [address] [place] [address] Sergey Tyson MD [address] [place] [address] Lorri Keenan CCC-GLASS VIAL FILLER 8 [place] [address] 10/28/2025 9:30 AM EST Office Visit [address] [place] [address] Sergey Tyson MD [address] [place] [address] Lorri Keenan CCC-GLASS VIAL FILLER 8 [place] [address] 11/05/2025 10:30 AM EST Office Visit [address] [address] Sergey Tyson MD [address] [place] [address] Lorri Keenan CCC-GLASS VIAL F[employer]ER [address] [place] [address] 11/12/2025 10:30 AM EST Office Visit [address] [address] Sergey Tyson MD [address] [place] [address] Lorri Keenan CCC-GLASS VIAL FILLER [address] [place] [address] 11/19/2025 9:30 AM EST Office Visit [facility] 8 [place] [address] Sergey Tyson MD [address] [place] [address] Lorri Keenan CCC-GLASS VIAL FILLER 8 [place] [address] 05/20/2026 9:00 AM EDT Office Visit [facility] at [address] [place] [address] Apple Talavera MD [address] [place] [address] [email or web address] documented as of this encounter Visit Diagnoses Not on filedocumented in this encounter Additional Health Concerns Infection Onset Date Last Indicated Resolved Time CoV-Risk 05/07/2022 05/07/2022 05/18/2022 1:24 AM EDT Assessment Noted Time PHQ-2 Depression Total Score: 0 04/28/20 12:48 PM EDT documented as of this encounter Care Teams Foundry Superintendant Relationship Specialty Start Date End Date Karlos Lyons MD [address] [place] [address] [email or web address] PCP - General Internal Medicine 07/14/14 05/07/21 Karlos Lyons MD [address] [place] [phone] [email or web address] PCP - General Internal Medicine 05/08/21 05/09/22 Sergey Tyson MD [address] [place] [address] [email or web address] PCP - General Internal Medicine 05/10/22 Karlos Lyons MD [address] [place] [phone] [email or web address] Insurance Assigned Provider 02/23/17 03/02/23 Omar Rocha MD [address] [place] [phone] [email or web address] Physical Medicine and Rehabilitation 05/08/21 Sagar Leung MD [address] [facility], [address] [place] [address] Obstetrics and Gynecology 05/08/21 Yefri Hilliard MD [address] [place] [address] Endocrinology 05/08/21 Karlos Murry MD [address] [place] [phone] [email or web address] Gastroenterology 02/27/22 Apple Talavera MD [address] [place] [email or web address] Primary Oncologist Medical Oncology 02/19/23 Sergey Tyson MD [address] [place] [address] [email or web address] Insurance Assigned Provider 02/29/24 Mena Mcwilliams RN [address] [place] [address] [email or web address] Note Taker 11/13/23 12/11/23 documented as of this encounter Additional Source Comments The information contained in this document represents components of the legal health record. It is not the complete legal health record.[facility]
--- OUTSIDE RECORDS SUMMARY | 2025-07-09 11:02 | XMS_ITS | Encounter Summary ---
Author Organization [facility] [place] [facility] Address [address] [place] [address] Care Team Providers Care Special Effects Makeup Artist Name Role Phone Sergey Tyson MD Primary Care Provider [phone] Encounter Details Date Type Department Care Team (Late st Contact Info) Description 12/24/2024 Lab Requisition [facility] - Main Lab [address] [facility] [place] [address] [employer] [facility] [address] [place] [address] Calculus of kidney Social History Tobacco Use [...] LAB CHEMISTRY METHOD 12/24/2024 7:29 PM EST [facility] Blood Venous blood specimen / Unknown 12/24/2024 2:15 PM EST 12/24/2024 6:35 PM EST [employer] [place] LAB BLOOD ORDERABLES Final Re sult Performing Organization Address City/[facility]/ZIP Co de Phone Number [facility] [address] [place] [address], [place] [phone] * Parathyroid hormone intact (12/24/2024 2:15 PM EST) PTH 36.6 18.5 - 88.0 pcg/mL LAB CHEMISTRY METHOD 12/24/2024 7:29 PM EST [facility] Blood Venous blood specimen / Unknown 12/24/2024 2:15 PM EST 12/24/2024 6:35 PM EST [employer] [facility] [place] LAB BLOOD ORDERABLES Final Re sult Performing Organization Address [facility]/ZIP Co de Phone Number [facility] [address] [place] [address], [place] [phone] documented in this encounter Visit Diagnoses Diagnosis Calculus of kidney documented in this encounter Care Teams Special Effects Makeup Artist Relationship Specialty Start Date End Date Sergey Tyson MD [address] [place] [address] PCP - General Internal Medicine 12/24/24 documented as of this encounter
--- NOTE | 2025-07-09 11:03 | A.OFFVIS_ITS ---
Vital Signs 07/09/25 11:05 Height 5 ft 6 in Weight 113 lb 12.136 oz BMI 18.4 BP 166/72 H Blood Pressure Location Rt brachial Position Sitting Pulse 73 Intake Visit Reasons: 6w gerd Allergies adhesive tape Allergy (Verified 05/26/25 10:49) Unknown atenolol (From Tenormin) Allergy (Verified 05/26/25 10:49) Unknown cefaclor (From Ceclor) Allergy (Verified 05/26/25 10:49) Unknown Chocolate Allergy (Verified 05/26/25 10:49) Unknown ciprofloxacin (From Cipro) Allergy (Verified 05/26/25 10:49) Unknown colchicine Allergy (Verified 05/26/25 10:49) Unknown cortisone Allergy (Verified 05/26/25 10:49) Unknown dicyclomine Allergy (Verified 05/26/25 10:49) Unknown gabapentin Allergy (Verified 05/26/25 10:49) Unknown indomethacin Allergy (Verified 05/26/25 10:49) Unknown Iodinated Contrast Media (Contrast Dye) Allergy (Verified 05/26/25 10:49) Unknown latex Allergy (Verified 05/26/25 10:49) Unknown levofloxacin (From Levaquin) Allergy (Verified 05/26/25 10:49) Anaphylaxis lisinopril Allergy (Verified 05/26/25 10:49) Unknown monosodium glutamate Allergy (Verified 05/26/25 10:49) Unknown morphine Allergy (Verified 05/26/25 10:49) Unknown NSAIDS (Non-Steroidal Anti-Inflamma Allergy (Verified 05/26/25 10:49) Unknown penicillin G Allergy (Verified 05/26/25 10:49) Unknown perfume Allergy (Verified 05/26/25 10:49) Unknown povidone-iodine (From Betadine) Allergy (Verified 05/26/25 10:49) Unknown propranolol Allergy (Verified 05/26/25 10:49) Unknown Sulfa (Sulfonamide Antibiotics) Allergy (Verified 05/26/25 10:49) Unknown tamsulosin Allergy (Verified 05/26/25 10:49) Unknown tetracycline Allergy (Verified 05/26/25 10:49) Unknown tramadol Allergy (Verified 05/26/25 10:49) Unknown trazodone Allergy (Verified 05/26/25 10:49) Unknown triamcinolone Allergy (Verified 05/26/25 10:49) Unknown venom-honey bee Allergy (Verified 05/26/25 10:49) Unknown fentanyl patch Allergy (Uncoded 05/05/25 10:36) Unknown HPI HPI 6w gerd: Details: Assessment & Plan (1) Weight loss, abnormal: Code(s): R63.4 - Abnormal weight loss Category: Medical (2) Adult failure to thrive: Code(s): R62.7 - Adult failure to thrive Category: Medical (3) Diarrhea: Code(s): R19.7 - Diarrhea, unspecified Category: Medical (4) Elevated fecal calprotectin: Code(s): R19.5 - Other fecal abnormalities Category: Medical (5) Tubular adenoma of colon: Code(s): D12.6 - Benign neoplasm of colon, unspecified Category: Medical (6) 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 She has only had 4 episodes of diarrhea since she started the budesonide. She has more energy, her cough has cleared and her hair is not falling out. She still has waves of nausea and since this is of uncertain origin I am do not know if this may improve over time. However, she finds it all much more tolerable, and only has very mild abdominal flank pain at this point. 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 She did well on axid in past and we will try to get this or change away from possible diarrheal class affect of omeprazole. Her dtr is in agreement. Her mother is eating better and looks better. I think we should get a repeat EGD/colonoscopy for further investigation and she is quite agreeable to this. This would also be a good idea since she has a history of Barretts esophagus. Her swallowing is generally better but we still have that somewhat concerning finding on esophageal manometry of a hypertensive gastroesophageal junction. There are no prior problems with anesthesia or sedation. She denies any cardiac or respiratory problems. There are no infectious disease problems. For now we are going to increase the budesonide to 3 a day, I had approach this at a lower dose initially because of her low body mass but since she is still having some breakthrough I think she will be able to tolerate the higher dose. She has had no reported adverse effects from the steroid and we do try to use budesonide to spare systemic effects although it also can have some long-term r isks. ROV 6 weeks. She also knows that she has an upcoming investigation for a slightly abnormal mammogram. Orders: Orders EGD/[facility] - GI Use Only Today D12.6 - Benign neoplasm of colon, unspecified, K22.4 - Dyskinesia of esophagus, K22.70 - Mercado's esophagus without dysplasia, R19.7 - Diarrhea, unspecified Medications: New nizatidine 300 mg PO BEDTIME 90 caps 1RF 90 days nizatidine 300 mg PO BEDTIME 30 caps 6RF Changed From budesonide DR-ER PLEASE DISREGARD IMURAN/AZATHIOPRINE RX 6 mg (2 x 3 mg) PO DAILY 60 ea 6RF R19.5 - Other fecal abnormalities To budesonide DR-ER PLEASE DISREGARD IMURAN/AZATHIOPRINE RX 9 mg (3 x 3 mg) PO DAILY 90 ea 6RF R19.5 - Other fecal abnormalities EGD/COLONOSCOPY BIOPSY TODAY'S VISIT Her current GI regimen consists of budesonide 3 tablets once a day, Colace which is being held due to diarrhea, Zofran p.r.n. nausea, simethicone 125 mg p.r.n., and nizantidine bid. She has ah US in 2 days, it had to be rescheduled. [facility] Medical History RUQ abdominal pain Fatty stools H. pylori infection Esophageal spasm History of breast cancer History of vertebral compression fracture History of pelvic fracture History of thyroid irradiation History of basal cell cancer History of squamous cell carcinoma History of pyelonephritis Surgical History H/O bilateral mastectomy S/P rotator cuff repair Status post de Quervain release surgery H/O spinal fusion History of augmentation mammoplasty H/O cervical spinal arthrodesis H/O esophagogastroduodenoscopy H/O colonoscopy H/O section Social History Alcohol intake: never Patient Tobacco Use Status: Never used Tobacco Review of Systems Const Details: Improved appetite, improved energy Denies fatigue, Denies fever(s), Denies night sweats, Denies poor appetite and Denies weight loss Eyes Details: glasses Reports requires corrective lenses ENT Reports Normal hearing present, Denies dental pain, Denies dysphagia, Denies hearing loss, Denies mouth pain, Denies odynophagia, Reports sinus pressure, Denies throat swelling, Denies tongue swelling and Reports other (Dentition adequate) Card Reports no additional complaints Resp Details: borborygmus Reports no additional complaints GI Details: Denies abdominal pain, Denies melena, Denies bloating, Denies hematochezia, Denies constipation, Reports GI cramping, Denies dysphagia, Denies excessive flatus, Denies early satiety, Reports heartburn, Reports diarrhea, Denies nausea, Denies odynophagia, Denies vomiting and Denies hematemesis Skin/Breast Denies pruritus, Denies lesions, Denies rash and Denies jaundice Neuro Reports Normal hearing present and Denies Abnormal speech present Endo Denies fatigue Aller/Immun Denies throat swelling and Denies tongue swelling Physical Exam Vital Signs: Last Vital Signs Pulse 73 07/09/25 11:05 BP 166/72 H 07/09/25 11:05 BMI result Body Mass Index 18.4 Const General: cooperative, no acute distress, well developed and well groomed Nutritional Appearance: well nourished and thin Orientation/consciousness: oriented to person, oriented to place and oriented to time Limitations: No language barrier HEENT Head: Yes normocephalic and Yes atraumatic Eyes General: appearance normal, both eyes and all related structures Pupils: Equal, round and reactive pupils present Neck Neck: Yes normal visual inspection and Yes no lymphadenopathy Thyroid: Thyroid normal Resp Effort & Inspection: normal respiratory effort and able to speak in complete sentences Auscultation: clear to auscultation bilaterally Cardio Rate: regular rate Rhythm: regular rhythm Heart sounds: Normal, physiologic split S2 sound present Peripheral pulses: radial pulses present and posterior tibial pulses present GI Inspection: No distended and No Abdominal panniculus present Palpation (GI): Soft to palpation, nontender, no guarding, not rigid and No hepatosplenomegaly present Percussion: Yes normal to percussion Auscultation: normal bowel sounds Rectal Exam - Female: deferred Skin General skin exam: no rashes or lesions noted, turgor normal, skin not dry, no jaundice, No spider nevi and no striae Rashes: no rashes Nails: normal Neuro General: oriented to person, oriented to place and oriented to time Cranial nerves: Yes Equal, round and reactive pupils present and Yes Normal hearing present Speech: No Abnormal speech present Extrem General: Yes normal to inspection, No clubbing, No cyanosis and No edema Psych Appearance: grossly normal and well kempt Mental Status: mental status grossly normal Speech and movement: Normal speech and movement present Affect: normal affect Attitude: cooperative Thought process: Normal thought process present and not confabulating Thought content: Normal thought content present Insight: Fair insight present (Psych) Judgement: Fair judgement present (Psych) Assessment & Plan Assessment & Plan (1) Elevated fecal calprotectin: Comment: ? Early IBD versus lymphocytic colitis versus medication reaction not yet defined versus undefined allergy-however her clinical response has been significantly [id number]-aeb Code(s): R19.5 - Other fecal abnormalities Category: Medical (2) Weight loss, abnormal: Code(s): R63.4 - Abnormal weight loss Category: Medical (3) Hypertensive lower esophageal sphincter: Comment: From esophageal manometry performed by [facility] Code(s): K22.4 - Dyskinesia of esophagus Category: Medical (4) Multiple drug allergies: Code(s): Z88.9 - Allergy status to unspecified drugs, medicaments and biological substances Category: Medical (5) Adult failure to thrive: Code(s): R62.7 - Adult failure to thrive Category: Medical Plan Her current GI regimen consists of budesonide 3 tablets once a day, Colace which is being held due to diarrhea, Zofran p.r.n. nausea, simethicone 125 mg p.r.n., and nizantidine bid. She is also on a fiber supplement and probiotics. History of Present Illness - The patient is a 75-year-old female presenting with gastrointestinal symptoms. - Mercado's esophagus with exacerbated symptoms when lying flat alleviated by certain medications. - Aspiration pneumonia suspected, with a history of recurrent pneumonia, currently not interfering with day-to-day activities. - Underwent a 10-day course of antibiotics for sinusitis without complete resolution of symptoms. - Experiences nocturnal gastroesophageal reflux and nausea; currently managed with zinatidine taken at night. We are trying to get twice a day dosage but insurance has been an issue, she thinks she has work this out with the pharmacy. - Reports unintentional weight loss, with difficulty gaining weight. - Diarrhea under evaluation to determine its origin; was exacerbated by antibiotics but has since stabilized. - she is happy that she is able to eat a wider variety of food, she has had a significant decrease in nausea and vomiting and in her diarrhea since starting budesonide. She has only frustrated that she has not yet put on significant weight. However she has not lost anymore. - Discussion of potential aspiration and the need for elevating sleeping position for pulmonary issues. Because she does not have a solid bed frame we discussed potentially getting a wedge pillow from [facility]. - Reiterated the need for scheduled endoscopy and colonoscopy pending. She asks what her exact diagnosis is and I tell her this is still a work in progress until I have all the tests I do not have a solid diagnosis for her. Nutrition The patient maintains a diet primarily consisting of yogurt and expresses the desire to expand her dietary intake. Despite being able to eat most foods, she expresses difficulty in gaining weight, weighing stably at 113 pounds. She reports a lack of appetite previously, resulting in undernutrition, though recent interventions have made it possible for her to consume more varieties of food. She has used Xanadine for GERD management, which partially alleviates her symptoms but requires split dosing. She has expressed interest in nasal steroid sprays due to persistent sinus issues and uses onbg-cek-ahkltuz Flonase. Her aspiration concerns require dietary management before bedtime. Review of Systems - Gastrointestinal: Reports reflux, nausea, diarrhea, and unintentional weight loss. Denies current exacerbation. - Respiratory: Reports recurrent pneumonia and sinusitis. Denies worsened respiratory symptoms post-antibiotics. - Allergic/Immunologic: Denies clear allergic causes. - Neurological: Reports no notable neurological symptoms. - General: Denies fever or fatigability. Physical Exam Results - Tests and Diagnostics: Ultrasound scheduled in 2 days. Plan Our management plan for Mercado's esophagus and associated GERD continues with split dosing of Xanadine to optimize relief. The patient will undergo an ultrasound in two days and is scheduled for an endoscopy and colonoscopy for comprehensive assessment by November. The focus remains on addressing gastroesophageal symptoms, investigating the underlying cause of diarrhea, and intervening for aspiration risks through suggested sleep positioning and dietary modifications. Follow-up is planned in six weeks to review weight trends and symptoms. The patient's engagement in this process is crucial, with emphasis on therapeutic compliance and understanding potential benefits of nasal steroids for sinusitis management. Patient was informed and verbally consented to the use of an ambient scribe for clinic note documentation during this visit. Discussion Notes I reviewed the differential diagnosis of the patient's gastrointestinal complaints, emphasizing the persisting symptoms of Mercado's esophagus. We discussed the importance of symptom control via split dosing of Xanadine, with expected improvements. I articulated the concern for potential aspiration, recommending dietary adjustments and suggested elevating her sleeping position. Scheduled diagnostic procedures, including an ultrasound and potential endoscopy/colonoscopy, were meticulously explained, emphasizing the importance of obtaining a thorough GI evaluation. We addressed recurrent pneumonia, evaluating pulmonary-related aspirations and emphasizing the benefits of proactive measures to prevent complications. Consent and understanding of forthcoming procedures and their purpose, including diagnostic timelines, were acknowledged by the patient. We agreed on follow-up in six weeks to assess therapeutic efficacy and intervening with detailed treatment adjustments as necessary. Patient Instructions - Continue taking Xanadine with split dosing as directed. - Elevate your head while sleeping to prevent aspiration. - Avoid eating 2-3 hours before bedtime. - Follow up scheduled in six weeks to assess progress. - Go to your ultrasound appointment in two days. - Monitor symptoms of reflux and report changes. - You can use Flonase nasal spray for sinus congestion. - Schedule your endoscopy and colonoscopy as directed. - Maintain your dietary intake; aim for a balanced diet to support weight gain. - Report any new or worsening symptoms promptly. Coding Level of Care Code Est Pt Level 4 (15225) Diagnoses Elevated fecal calprotectin R19.5 Weight loss, abnormal R63.4 Hypertensive lower esophageal sphincter K22.4 Multiple drug allergies Z88.9 Adult failure to thrive R62.7 Time Spent (min) 39
[2025-07-09 11:05] VITALS: BP 166/72; PULSE 73; BMI 18.4
--- NOTE | 2025-07-09 11:05 | MHC.OFFVIS ---
Vital Signs 07/09/25 11:05 Height 5 ft 6 in Weight 113 lb 12.136 oz BMI 18.4 BP 166/72 H Blood Pressure Location Rt brachial Position Sitting Pulse 73 Intake Visit Reasons: 6w gerd Intake Note: Patient 6 weeks follow up for Adult failure to thrive. CC: Patient states that she is feeling better overall but continues to have the RUQ and LLQ abd pain. The pain has decreased per patient but still is there. Theatrical Trouper Required: No Accompanied by: Self / Same As Patient Allergies adhesive tape Allergy (Verified 05/26/25 10:49) Unknown atenolol (From Tenormin) Allergy (Verified 05/26/25 10:49) Unknown cefaclor (From Ceclor) Allergy (Verified 05/26/25 10:49) Unknown Chocolate Allergy (Verified 05/26/25 10:49) Unknown ciprofloxacin (From Cipro) Allergy (Verified 05/26/25 10:49) Unknown colchicine Allergy (Verified 05/26/25 10:49) Unknown cortisone Allergy (Verified 05/26/25 10:49) Unknown dicyclomine Allergy (Verified 05/26/25 10:49) Unknown gabapentin Allergy (Verified 05/26/25 10:49) Unknown indomethacin Allergy (Verified 05/26/25 10:49) Unknown Iodinated Contrast Media (Contrast Dye) Allergy (Verified 05/26/25 10:49) Unknown latex Allergy (Verified 05/26/25 10:49) Unknown levofloxacin (From Levaquin) Allergy (Verified 05/26/25 10:49) Anaphylaxis lisinopril Allergy (Verified 05/26/25 10:49) Unknown monosodium glutamate Allergy (Verified 05/26/25 10:49) Unknown morphine Allergy (Verified 05/26/25 10:49) Unknown NSAIDS (Non-Steroidal Anti-Inflamma Allergy (Verified 05/26/25 10:49) Unknown penicillin G Allergy (Verified 05/26/25 10:49) Unknown perfume Allergy (Verified 05/26/25 10:49) Unknown povidone-iodine (From Betadine) Allergy (Verified 05/26/25 10:49) Unknown propranolol Allergy (Verified 05/26/25 10:49) Unknown Sulfa (Sulfonamide Antibiotics) Allergy (Verified 05/26/25 10:49) Unknown tamsulosin Allergy (Verified 05/26/25 10:49) Unknown tetracycline Allergy (Verified 05/26/25 10:49) Unknown tramadol Allergy (Verified 05/26/25 10:49) Unknown trazodone Allergy (Verified 05/26/25 10:49) Unknown triamcinolone Allergy (Verified 05/26/25 10:49) Unknown venom-honey bee Allergy (Verified 05/26/25 10:49) Unknown fentanyl patch Allergy (Uncoded 05/05/25 10:36) Unknown PFSH Medical History RUQ abdominal pain Fatty stools H. pylori infection Esophageal spasm History of breast cancer History of vertebral compression fracture History of pelvic fracture History of thyroid irradiation History of basal cell cancer History of squamous cell carcinoma History of pyelonephritis Surgical History H/O bilateral mastectomy S/P rotator cuff repair Status post de Quervain release surgery H/O spinal fusion History of augmentation mammoplasty H/O cervical spinal arthrodesis H/O esophagogastroduodenoscopy H/O colonoscopy H/O section Social History Alcohol intake: never Patient Tobacco Use Status: Never used Tobacco Assessment & Plan Assessment & Plan (1) Multiple drug allergies: Code(s): Z88.9 - Allergy status to unspecified drugs, medicaments and biological substances Category: Medical (2) Weight loss, abnormal: Code(s): R63.4 - Abnormal weight loss Category: Medical (3) Adult failure to thrive: Code(s): R62.7 - Adult failure to thrive Category: Medical (4) Hypertensive lower esophageal sphincter: Comment: From esophageal manometry performed by [facility] Code(s): K22.4 - Dyskinesia of esophagus Category: Medical Coding Diagnoses Multiple drug allergies Z88.9 Weight loss, abnormal R63.4 Adult failure to thrive R62.7 Hypertensive lower esophageal sphincter K22.4
== END 2025-07-09 12:00 | disposition home or self-care (01) ==
LOC: HO.HGI 10:56
PROVIDERS: PCP Internal Medicine; Visit Provider Nurse Practitioner
DX: R19.5 Other fecal abnormalities (principal); R63.4 Abnormal weight loss; K22.4 Dyskinesia of esophagus; Z88.9 Allergy status to unspecified drugs, medicaments and biological substances; R62.7 Adult failure to thrive
CPT/HCPCS: 99214

== ENCOUNTER 2025-07-13 07:56 | Outpatient (REF) | payer BC, MEDICARE, SELFPAY ==
--- NOTE | ~2025-07-13 | US_ITS ---
CLINICAL HISTORY: R19.01 - Right upper quadrant abdominal swelling, mass and lump Ultrasound right abdominal wall Comparison: CT 03/30/2025 Findings: 2.5 x 0.8 cm ovoid heterogeneous hypoechoic solid nodule. This is at the site of palpable lump. Internal hyperechoic septations noted. Finding may represent soft tissue lipoma. No definite abnormalities on prior CT. Recommend clinical follow-up to ensure size stability. Impression: Probable right abdominal wall lipoma Recommend clinical follow-up to ensure size stability This document has been electronically signed by: Tutu Carlson MD on 07/13/2025 21:32:33
--- OUTSIDE RECORDS SUMMARY | 2025-07-13 07:59 | XMS_ITS | Encounter Summary ---
Author Organization [facility] Address [address] [place] [address] Care Team Providers Care Chief Business Officer Name Role Phone Sergey Tyson MD Primary Care Provider [phone] Encounter Details Date Type Department Care Team (Late st Contact Info) Description 12/24/2024 Lab Requisition [facility] - Main Lab [address] [place] [address] [facility] [address] [place] [address] Calculus of kidney Social History Tobacco Use [...] LAB CHEMISTRY METHOD 12/24/2024 7:29 PM EST [facility] ([facility] Blood Venous blood specimen / Unknown 12/24/2024 2:15 PM EST 12/24/2024 6:35 PM EST [facility] LAB BLOOD ORDERABLES Final Re sult Performing Organization Address City/[facility]/ZIP Co de Phone Number [facility] [address] [place] [address], [place] [phone] * Parathyroid hormone intact (12/24/2024 2:15 PM EST) PTH 36.6 18.5 - 88.0 pcg/mL LAB CHEMISTRY METHOD 12/24/2024 7:29 PM EST [facility] Blood Venous blood specimen / Unknown 12/24/2024 2:15 PM EST 12/24/2024 6:35 PM EST [facility] LAB BLOOD ORDERABLES Final Re sult Performing Organization Address [facility]/ZIP Co de Phone Number [facility] [address] [place] [address], [place] [phone] documented in this encounter Visit Diagnoses Diagnosis Calculus of kidney documented in this encounter Care Teams Chief Business Officer Relationship Specialty Start Date End Date Sergey Tyson MD [address] [place] [address] PCP - General Internal Medicine 12/24/24 documented as of this encounter
--- OUTSIDE RECORDS SUMMARY | 2025-07-13 07:59 | XMS_ITS | Encounter Summary ---
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 Role Phone Karlos Lyons MD Primary Care Provider Karlos Lyons MD Unavailable [phone] Omar Rocha MD Unavailable [phone] Sagar Leung MD Unavailable Karlos Lyons MD Primary Care Provider + [phone] Yefri Hilliard MD Unavailable [phone] Karlos Murry MD Unavailable [phone] Sergey Tyson MD Primary Care Provider Apple Talavera MD Unavailable [phone] Sergey Tyson MD Unavailable Mena Mcwilliams RN Unavailable [phone] Encounter Details Date Type Department Care Team (Late st Contact Info) Description 08/06/2020 Procedure Pass [facility], [address] [id number] Social History Tobacco Use Types Packs/Day Years [...] Info) Description 07/19/2025 11:30 AM EDT Appointment [facility], X-Ray - Main Hospital [address] [place] [id number] Rj Leiva MD [address] [place] [phone] [email or web address] 07/19/2025 12:30 PM EDT Hospital Encounter [facility] [address] [place] [address] Rj Leiva MD [address] [place] [phone] [email or web address] 07/27/2025 10:00 AM EDT Office Visit [facility] Internal Medicine [address] [place] [address] Sergey Tyson MD [address] [place] [address] 09/02/2025 9:30 AM EDT Office Visit [facility] Rehabilitation Services [address] [place] [address] Sergey Tyson MD [address] [place] [phone] Lorri Keenan, [facility] [address] [place] [address] 09/09/2025 8:30 AM EDT Office Visit [facility] [address] [place] [address] Sergey Tyson MD [address] [place] [address] Lorri Keenan [facility] [address] [place] [address] 09/16/2025 8:30 AM EDT Office Visit [facility] 8 [place] [address] Sergey Tyson MD [address] [place] [address] Lorri Keenan [facility] [address] [place] [phone] 09/23/2025 9:30 AM EDT Office Visit [facility] [address] [place] [address] Sergey Tyson MD [address] [place] [phone] Lorri Keenan [facility] [address] [place] [address] 10/01/2025 10:30 AM EST Office Visit [address] [place] [address] Sergey Tyson MD [address] [place] [address] Lorri Keenan [facility] [address] [place] [address] 10/08/2025 10:30 AM EST Office Visit [facility] [address] [place] [address] Sergey Tyson MD [address] [place] [phone] Lorri Keenan [facility] [address] [place] [address] 10/11/2025 1:30 PM EST Office Visit [facility] Pulmonary, Allergy and Critical Care Medicine [address] [place] [address] Rj Leiva MD [address] [place] [address] [email or web address] 10/15/2025 10:30 AM EST Office Visit [facility] [address] [place] [address] Sergey Tyson MD [address] [place] [address] Lorri Keenan [facility] [address] [place] [address] 10/18/2025 8:30 AM EST Office Visit [facility] [address] [place] [address] Sergey Tyson MD [address] [place] [address] Lorri Keenan [facility] [address] [place] [address] 10/28/2025 9:30 AM EST Office Visit [address] [place] [address] Sergey Tyson MD [address] [place] [address] Lorri Keenan [facility] [address] [place] [address] 11/05/2025 10:30 AM EST Office Visit [address] [address] Sergey Tyson MD [address] [place] [address] Lorri Keenan [facility] [address] [place] [address] 11/12/2025 10:30 AM EST Office Visit [address] [address] Sergey Tyson MD [address] [place] [address] Lorri Keenan [facility] [address] [place] [address] 11/19/2025 9:30 AM EST Office Visit [facility] [address] [place] [address] Sergey Tyson MD [address] [place] [address] Lorri Keenan [facility] [address] [place] [address] 05/20/2026 9:00 AM EDT Office Visit [facility] at [address] [place] [address] Apple Talavera MD [address] [place] [address] [email or web address] documented as of this encounter Visit Diagnoses Not on filedocumented in this encounter Additional Health Concerns Infection Onset Date Last Indicated Resolved Time CoV-Risk 05/07/2022 05/07/2022 05/18/2022 1:24 AM EDT Assessment Noted Time PHQ-2 Depression Total Score: 0 04/28/20 12:48 PM EDT documented as of this encounter Care Teams 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 Relationship Specialty Start Date End Date Karlos Lyons MD [address] [place] [phone] [email or web address] PCP - General Internal Medicine 07/14/14 05/07/21 Karlos Lyons MD [address] [place] [phone] [email or web address] PCP - General Internal Medicine 05/08/21 05/09/22 Sergey Tyson MD [address] [place] [address] [email or web address] PCP - General Internal Medicine 05/10/22 Karlos Lyons MD [address] [place] [phone] [email or web address] Insurance Assigned Provider 02/23/17 03/02/23 Omar Rocha MD [address] [place] [phone] [email or web address] Physical Medicine and Rehabilitation 05/08/21 Sagar Leung MD [address] [facility], [address] [place] [address] Obstetrics and Gynecology 05/08/21 Yefri Hilliard MD [address] [place] [address] Endocrinology 05/08/21 Karlos Murry MD [address] [place] [phone] [email or web address] Gastroenterology 02/27/22 Apple Talavera MD [address] [place] [phone] [email or web address] Primary Oncologist Medical Oncology 02/19/23 Sergey Tyson MD [address] [place] [address] [email or web address] Insurance Assigned Provider 02/29/24 Mena Mcwilliams RN [address] [place] [address] [email or web address] Administrative Project Coordinator 11/13/23 12/11/23 documented as of this encounter Additional Source Comments The information contained in this document represents components of the legal health record. It is not the complete legal health record.[facility]
== END 2025-07-13 07:57 | disposition home or self-care (01) ==
LOC: HO.US 07:56
PROVIDERS: PCP Internal Medicine; Visit Provider Nurse Practitioner
DX: R19.01 Right upper quadrant abdominal swelling, mass and lump (principal)
CPT/HCPCS: 76705

== ENCOUNTER → 2025-07-13 07:58 | Outpatient (BNV) | payer BC, MEDICARE, SELFPAY | PROVIDERS: PCP Internal Medicine; Visit Provider Radiology Diagnostic Radiology | DX: R19.01 Right upper quadrant abdominal swelling, mass and lump (principal) | CPT/HCPCS: 76705 ==

== ENCOUNTER 2025-08-20 10:05 | Outpatient (AMB) | payer MEDICARE, BC, SELFPAY ==
[2025-08-20 10:19] VITALS: BP 161/76; PULSE 87; O2SAT 96; BMI 18.2
--- NOTE | 2025-08-20 10:19 | MHC.OFFVIS ---
Vital Signs 08/20/25 10:19 Height 5 ft 6 in Weight 112 lb 14.027 oz BMI 18.2 BP 161/76 H Blood Pressure Location Rt brachial Position Sitting Pulse 87 Pulse Oximetry (%) 96 Intake Visit Reasons: SSBE, diarrheam wt loss Intake Note: Kaylyn presents to in office follow up of diarrhea and wt loss. CC: Patient continues to have diarrhea on and off. She reports trouble sleeping a headache all the time, and her sinuses are bothering her as well. She c/o trouble chocking with foods and her voice is always gravelly. Corporate Events Director Required: No Allergies adhesive tape Allergy (Verified 08/20/25 10:32) Unknown atenolol (From Tenormin) Allergy (Verified 08/20/25 10:32) Unknown cefaclor (From Ceclor) Allergy (Verified 08/20/25 10:32) Unknown Chocolate Allergy (Verified 08/20/25 10:32) Unknown ciprofloxacin (From Cipro) Allergy (Verified 08/20/25 10:32) Unknown colchicine Allergy (Verified 08/20/25 10:32) Unknown cortisone Allergy (Verified 08/20/25 10:32) Unknown dicyclomine Allergy (Verified 08/20/25 10:32) Unknown gabapentin Allergy (Verified 08/20/25 10:32) Unknown indomethacin Allergy (Verified 08/20/25 10:32) Unknown Iodinated Contrast Media (Contrast Dye) Allergy (Verified 08/20/25 10:32) Unknown latex Allergy (Verified 08/20/25 10:32) Unknown levofloxacin (From Levaquin) Allergy (Verified 08/20/25 10:32) Anaphylaxis lisinopril Allergy (Verified 08/20/25 10:32) Unknown monosodium glutamate Allergy (Verified 08/20/25 10:32) Unknown morphine Allergy (Verified 08/20/25 10:32) Unknown NSAIDS (Non-Steroidal Anti-Inflamma Allergy (Verified 08/20/25 10:32) Unknown penicillin G Allergy (Verified 08/20/25 10:32) Unknown perfume Allergy (Verified 08/20/25 10:32) Unknown povidone-iodine (From Betadine) Allergy (Verified 08/20/25 10:32) Unknown propranolol Allergy (Verified 08/20/25 10:32) Unknown Sulfa (Sulfonamide Antibiotics) Allergy (Verified 08/20/25 10:32) Unknown tamsulosin Allergy (Verified 08/20/25 10:32) Unknown tetracycline Allergy (Verified 08/20/25 10:32) Unknown tramadol Allergy (Verified 08/20/25 10:32) Unknown trazodone Allergy (Verified 08/20/25 10:32) Unknown triamcinolone Allergy (Verified 08/20/25 10:32) Unknown venom-honey bee Allergy (Verified 08/20/25 10:32) Unknown fentanyl patch Allergy (Uncoded 05/05/25 10:36) Unknown HPI HPI SSBE, diarrheam wt loss: Details: Assessment & Plan (1) Elevated fecal calprotectin: Comment: ? Early IBD versus lymphocytic colitis versus medication reaction not yet defined versus undefined allergy-however her clinical response has been significantly budesonideb-aeb Code(s): R19.5 - Other fecal abnormalities Category: Medical (2) Weight loss, abnormal: Code(s): R63.4 - Abnormal weight loss Category: Medical (3) Hypertensive lower esophageal sphincter: Comment: From esophageal manometry performed by [facility] Code(s): K22.4 - Dyskinesia of esophagus Category: Medical (4) Multiple drug allergies: Code(s): Z88.9 - Allergy status to unspecified drugs, medicaments and biological substances Category: Medical (5) Adult failure to thrive: Code(s): R62.7 - Adult failure to thrive Category: Medical Plan Her current GI regimen consists of budesonide 3 tablets once a day, Colace which is being held due to diarrhea, Zofran p.r.n. nausea, simethicone 125 mg p.r.n., and nizantidine bid. She is also on a fiber supplement and probiotics. History of Present Illness - The patient is a 75-year-old female presenting with gastrointestinal symptoms. - Mercado's esophagus with exacerbated symptoms when lying flat alleviated by certain medications. - Aspiration pneumonia suspected, with a history of recurrent pneumonia, currently not interfering with day-to-day activities. - Underwent a 10-day course of antibiotics for sinusitis without complete resolution of symptoms. - Experiences nocturnal gastroesophageal reflux and nausea; currently managed with zinatidine taken at night. We are trying to get twice a day dosage but insurance has been an issue, she thinks she has work this out with the pharmacy. - Reports unintentional weight loss, with difficulty gaining weight. - Diarrhea under evaluation to determine its origin; was exacerbated by antibiotics but has since stabilized. - she is happy that she is able to eat a wider variety of food, she has had a significant decrease in nausea and vomiting and in her diarrhea since starting budesonide. She has only frustrated that she has not yet put on significant weight. However she has not lost anymore. - Discussion of potential aspiration and the need for elevating sleeping position for pulmonary issues. Because she does not have a solid bed frame we discussed potentially getting a wedge pillow from [facility]. - Reiterated the need for scheduled endoscopy and colonoscopy pending. She asks what her exact diagnosis is and I tell her this is still a work in progress until I have all the tests I do not have a solid diagnosis for her. Nutrition The patient maintains a diet primarily consisting of yogurt and expresses the desire to expand her dietary intake. Despite being able to eat most foods, she expresses difficulty in gaining weight, weighing stably at 113 pounds. She reports a lack of appetite previously, resulting in undernutrition, though recent interventions have made it possible for her to consume more varieties of food. She has used Xanadine for GERD management, which partially alleviates her symptoms but requires split dosing. She has expressed interest in nasal steroid sprays due to persistent sinus issues and uses uoll-ezg-svuubor Flonase. Her aspiration concerns require dietary management before bedtime. Review of Systems - Gastrointestinal: Reports reflux, nausea, diarrhea, and unintentional weight loss. Denies current exacerbation. - Respiratory: Reports recurrent pneumonia and sinusitis. Denies worsened respiratory symptoms post-antibiotics. - Allergic/Immunologic: Denies clear allergic causes. - Neurological: Reports no notable neurological symptoms. - General: Denies fever or fatigability. Physical Exam Results - Tests and Diagnostics: Ultrasound scheduled in 2 days. Plan Our management plan for Mercado's esophagus and associated GERD continues with split dosing of Xanadine to optimize relief. The patient will undergo an ultrasound in two days and is scheduled for an endoscopy and colonoscopy for comprehensive assessment by November. The focus remains on addressing gastroesophageal symptoms, investigating the underlying cause of diarrhea, and intervening for aspiration risks through suggested sleep positioning and dietary modifications. Follow-up is planned in six weeks to review weight trends and symptoms. The patient's engagement in this process is crucial, with emphasis on therapeutic compliance and understanding potential benefits of nasal steroids for sinusitis management. Patient was informed and verbally consented to the use of an ambient scribe for clinic note documentation during this visit. Discussion Notes I reviewed the differential diagnosis of the patient's gastrointestinal complaints, emphasizing the persisting symptoms of Mercado's esophagus. We discussed the importance of symptom control via split dosing of Xanadine, with expected improvements. I articulated the concern for potential aspiration, recommending dietary adjustments and suggested elevating her sleeping position. Scheduled diagnostic procedures, including an ultrasound and potential endoscopy/colonoscopy, were meticulously explained, emphasizing the importance of obtaining a thorough GI evaluation. We addressed recurrent pneumonia, evaluating pulmonary-related aspirations and emphasizing the benefits of proactive measures to prevent complications. Consent and understanding of forthcoming procedures and their purpose, including diagnostic timelines, were acknowledged by the patient. We agreed on follow-up in six weeks to assess therapeutic efficacy and intervening with detailed treatment adjustments as necessary. Patient Instructions - Continue taking Xanadine with split dosing as directed. - Elevate your head while sleeping to prevent aspiration. - Avoid eating 2-3 hours before bedtime. - Follow up scheduled in six weeks to assess progress. - Go to your ultrasound appointment in two days. - Monitor symptoms of reflux and report changes. - You can use Flonase nasal spray for sinus congestion. - Schedule your endoscopy and colonoscopy as directed. - Maintain your dietary intake; aim for a balanced diet to support weight gain. - Report any new or worsening symptoms promptly. EGD/colonoscopy Biopsy Ultrasound of the abdomen 07/13/2025 Findings: 2.5 x 0.8 cm ovoid heterogeneous hypoechoic solid nodule. This is at the site of palpable lump. Internal hyperechoic septations noted. Finding may represent soft tissue lipoma. No definite abnormalities on prior CT. Recommend clinical follow-up to ensure size stability. Impression: Probable right abdominal wall lipoma Recommend clinical follow-up to ensure size stability TODAY'S VISIT REPLACED BY [facility] Medical History RUQ abdominal pain Fatty stools H. pylori infection Esophageal spasm History of breast cancer History of vertebral compression fracture History of pelvic fracture History of thyroid irradiation History of basal cell cancer History of squamous cell carcinoma History of pyelonephritis Surgical History H/O bilateral mastectomy S/P rotator cuff repair Status post de Quervain release surgery H/O spinal fusion History of augmentation mammoplasty H/O cervical spinal arthrodesis H/O esophagogastroduodenoscopy H/O colonoscopy H/O section Social History Alcohol intake: never Patient Tobacco Use Status: Never used Tobacco Review of Systems Const Denies fatigue, Denies fever(s), Reports headache(s), Denies night sweats, Denies poor appetite and Denies weight loss Eyes Details: g;asses Reports requires corrective lenses ENT Reports Normal hearing present, Denies dental pain, Denies dysphagia, Reports headache(s), Denies hearing loss, Denies mouth pain, Reports nasal congestion, Reports nasal discharge, Denies odynophagia, Reports post nasal drip, Reports sinus pain, Denies throat swelling, Denies tongue swelling and Reports other (Dentition adequate) Card Reports no additional complaints Resp Reports no additional complaints GI Details: Reports abdominal pain, Denies melena, Reports bloating, Denies hematochezia, Denies constipation, Denies GI cramping, Denies dysphagia, Denies excessive flatus, Denies early satiety, Reports heartburn, Denies diarrhea, Reports loose stools, Reports nausea, Denies odynophagia, Denies vomiting and Denies hematemesis Skin/Breast Denies pruritus, Denies lesions, Denies rash and Denies jaundice Neuro Reports Normal hearing present, Denies Abnormal speech present and Reports headache(s) Endo Denies fatigue Aller/Immun Denies throat swelling and Denies tongue swelling Physical Exam Vital Signs: Last Vital Signs Pulse 87 08/20/25 10:19 BP 161/76 H 08/20/25 10:19 Pulse Ox 96 08/20/25 10:19 BMI result Body Mass Index 18.2 Const General: cooperative, no acute distress, well developed and well groomed Nutritional Appearance: well nourished and thin Orientation/consciousness: oriented to person, oriented to place and oriented to time Limitations: No language barrier HEENT Head: Yes normocephalic and Yes atraumatic General nose exam: Nasal discharge present Mouth: muffled voice Eyes General: appearance normal, both eyes and all related structures Pupils: Equal, round and reactive pupils present Neck Neck: Yes normal visual inspection and Yes no lymphadenopathy Thyroid: Thyroid normal Resp Effort & Inspection: normal respiratory effort and able to speak in complete sentences Auscultation: clear to auscultation bilaterally Cardio Rate: regular rate Rhythm: regular rhythm Heart sounds: Normal, physiologic split S2 sound present Peripheral pulses: radial pulses present and posterior tibial pulses present GI Inspection: No distended and No Abdominal panniculus present Palpation (GI): Soft to palpation, nontender, no guarding, not rigid and No hepatosplenomegaly present Percussion: Yes normal to percussion Auscultation: normal bowel sounds Rectal Exam - Female: deferred Skin General skin exam: no rashes or lesions noted, turgor normal, skin not dry, no jaundice, No spider nevi and no striae Rashes: no rashes Nails: normal Neuro General: oriented to person, oriented to place and oriented to time Cranial nerves: Yes Equal, round and reactive pupils present and Yes Normal hearing present Speech: No Abnormal speech present Extrem General: Yes normal to inspection, No clubbing, No cyanosis and No edema Psych Appearance: grossly normal and well kempt Mental Status: mental status grossly normal Speech and movement: Normal speech and movement present Affect: normal affect Attitude: cooperative Thought process: Normal thought process present and not confabulating Thought content: Normal thought content present Insight: Fair insight present (Psych) Judgement: Fair judgement present (Psych) Assessment & Plan Assessment & Plan (1) Chronic sinusitis: Code(s): J32.9 - Chronic sinusitis, unspecified Category: Medical (2) RUQ abdominal mass: Code(s): R19.01 - Right upper quadrant abdominal swelling, mass and lump Category: Medical (3) Elevated MCV: Code(s): R71.8 - Other abnormality of red blood cells Category: Medical Plan She continues on her nizatidine, simethicone, and Zofran PRN. - The patient is a 75-year-old female presenting with gastrointestinal complaints and management of ongoing symptoms. - Reported discomfort from a lipoma assessed via ultrasound, showing an ovoid heterogenous hypoechoic solid nodule. Because it causes her discomfort we will refer her to General surgery for excision and definitive diagnosis. - Demonstrates esophageal dysmotility contributing to swallowing difficulties as noted by a modified barium swallow assessment. - Recurrent bouts of GI-associated lower abdominal burn leading to prolonged nausea episodes.Elevated fecal calprotectin; concerns of early inflammatory bowel disease versus IBS or potentially microscopic colitis. I look forward to her colonoscopy/EGD to help clarify the underlying cause. - Stools are mostly normal, with infrequent hard, bark-like segments observed. - Exhibits macrocytic anemia, with elevated MCV but has normal B12, leading to unspecific underlying causation. She is being referred to Hematology to further explore this since she does not drink alcohol and has a normal B12 level. - Persistent nasal congestion treated with nasal spray, particularly Flonase, offering temporary relief but without complete resolution. I recommend referral to an ear nose throat specialist since her admissions consultant has not been able to solve this problem, and it really sounds like it starts in the sinuses. . Return office visit in 3 months Orders: Referrals Ear/Nose/Throat Referral J32.9 - Chronic sinusitis, unspecified General Surgery Referral R19.01 - Right upper quadrant abdominal swelling, mass and lump Hematology & Oncology Referral R71.8 - Other abnormality of red blood cells Coding Level of Care Code Est Pt Level 4 (05391) Diagnoses Chronic sinusitis J32.9 RUQ abdominal mass R19.01 Elevated MCV R71.8 Time Spent (min) 39
--- OUTSIDE RECORDS SUMMARY | 2025-08-20 11:17 | XMS_ITS | Encounter Summary ---
Author Organization [facility] Address [facility] [address] [place] [address] Phone Care Team Providers Care Creative Services Specialist Name Role Phone Karlos Lyons MD Unavailable [phone] Omar Rocha MD Unavailable [phone] Sagar Leung MD Unavailable Yefri Hilliard MD Unavailable [phone] Karlos Murry MD Unavailable [phone] Sergey Tyson MD Primary Care Provider Apple Talavera MD Unavailable [phone] Sergey Tyson MD Unavailable Mena Mcwilliams RN Unavailable [phone] Encounter Details Date Type Department Care Team (Late st Contact Info) Description 05/31/2022 Procedure Pass OR Admitting Dept - Virtual Department [address] [place] [address] Social History Tobacco Use Types Packs/Day Years [...] high school, GED, job training, learning the Nepalese language, technical skills, or developing parenting skills)? [...] Care Team (Late st Contact Info) Description 09/02/2025 9:30 AM EDT Office Visit [facility] Rehabilitation Services 8 [place] [address] Sergey Tyson MD [address] [place] [address] Lorri Keenan, CCC-DIRECTOR WORK 8 [place] [address] 09/09/2025 8:30 AM EDT Office Visit [facility] 8 [place] [address] Sergey Tyson MD [address] [place] [address] Lorri Keenan CCC-DIRECTOR WORK 8 [place] [address] 09/16/2025 8:30 AM EDT Office Visit [address] [address] Sergey Tyson MD [address] [place] [address] Lorri Keenan CCC-DIRECTOR WORK [address] [place] [address] 09/23/2025 9:30 AM EDT Office Visit [address] [address] Sergey Tyson MD [address] [place] [address] Lorri Keenan CCC-DIRECTOR WORK [address] [place] [address] 10/01/2025 10:30 AM EST Office Visit [address] [address] Sergey Tyson MD [address] [place] [address] Lorri Keenan CCC-DIRECTOR WORK 8 [place] [address] 10/08/2025 10:30 AM EST Office Visit [facility] [address] [place] [address] Sergey Tyson MD [address] [place] [address] Lorri Keenan CCC-DIRECTOR WORK 8 [place] [address] 10/11/2025 1:30 PM EST Office Visit [facility] Pulmonary, Allergy and Critical Care Medicine [address] [place] [address] Rj Leiva MD [address] [place] [address] [email or web address] 10/15/2025 10:30 AM EST Office Visit [facility] 8 [place] [address] Sergey Tyson MD [address] [place] [address] Lorri Keenan CCC-DIRECTOR WORK 8 [place] [address] 10/18/2025 8:30 AM EST Office Visit [facility] [address] [place] [address] Sergey Tyson MD [address] [place] [address] Lorri Keenan CCC-DIRECTOR WORK 8 [place] [address] 10/28/2025 9:30 AM EST Office Visit [facility] [address] [place] [address] Sergey Tyson MD [address] [place] [address] Lorri Keenan CCC-DIRECTOR WORK 8 [place] [address] 11/05/2025 10:30 AM EST Office Visit [facility] 8 [place] [address] Sergey Tyson MD [address] [place] [address] Lorri Keenan CCC-DIRECTOR WORK 8 [place] [address] 11/12/2025 10:30 AM EST Office Visit [facility] 8 [place] [address] Sergey Tyson MD [address] [place] [address] Lorri Keenan CCC-DIRECTOR WORK 8 [place] [address] 11/19/2025 9:30 AM EST Office Visit [facility] 8 [place] [address] Sergey Tyson MD [address] [place] [address] Lorri Keenan CCC-DIRECTOR WORK 8 [place] [address] 12/10/2025 2:45 PM EST Office Visit [facility] Gastro[facility]ology [facility] [address] [place], [place] [phone] Unknown, Unknown, MD Murry, Karlos Martines MD [address] [place] [address] [email or web address] 04/28/2026 8:00 AM EDT Office Visit [facility] Internal Medicine 40 [place] [address] Sergey Tyson MD [address] [place] [address] [email or web address] 05/20/2026 9:00 AM EDT Office Visit [facility] 30 [place] [address] Apple Talavera MD [address] [place] [address] [email or web address] documented as of this encounter Visit Diagnoses Not on filedocumented in this encounter Additional Health Concerns Assessment Noted Time PHQ-2 Depression Total Score: 2 05/05/20 22 10:17 AM EDT documented as of this encounter Care Teams Creative Services Specialist Relationship Specialty Start Date End Date Sergey Tyson MD [address] [place] [address] [email or web address] PCP - General Internal Medicine 05/10/22 Karlos Lyons MD [address] [place] [address] [email or web address] Insurance Assigned Provider 02/23/17 03/02/23 Omar Rocha MD [address] [place] [address] [email or web address] Physical Medicine and Rehabilitation 05/08/21 Sagar Leung MD [address], [address] [place] [address] [email or web address] Obstetrics and Gynecology 05/08/21 Yefri Hilliard MD [address] [place] [address] Endocrinology 05/08/21 Karlos Murry MD [address] [place] [address] [email or web address] Gastroenterology 02/27/22 Aplpe Talavera MD [address] [place] [address] [email or web address] Primary Oncologist Medical Oncology 02/19/23 Sergey Tyson MD [address] [place] [address] [email or web address] Insurance Assigned Provider 02/29/24 Mena Mcwilliams, RUSS [address] [place] [address] [email or web address] [employer] Clerical Secretary 11/13/23 12/11/23 documented as of this encounter Additional Source Comments The information contained in this document represents components of the legal health record. It is not the complete legal health record.[facility]
--- OUTSIDE RECORDS SUMMARY | 2025-08-20 11:17 | XMS_ITS | Encounter Summary ---
Author Organization [facility] Address [facility] [address] [place] [address] Phone Care Team Providers Care Social Sciences Instructor Name Role Phone Karlos Lyons MD Unavailable Omar Rocha MD Unavailable [phone] Sagar Leung MD Unavailable Yefri Hilliard MD Unavailable Karlos Murry MD Unavailable [phone] Sergey Tyson MD Primary Care Provider [phone] Apple Talavera MD Unavailable [phone] Sergey Tyson MD Unavailable Mena Mcwilliams RN Unavailable [phone] Encounter Details Date Type Department Care Team (Late st Contact Info) Description 09/13/2022 Procedure Pass [facility] Endoscopy Admitting Dept Virtual Department 30 [place], [place] [id number] Social History Tobacco Use Types Packs/Day Years [...] high school, GED, job training, learning the Ugandan language, technical skills, or developing parenting skills)? [...] Description 09/02/2025 9:30 AM EDT Office Visit [facility] Rehabilitation Services 8 [place] [address] Sergey Tyson MD 40 [place] [address] Lorri Keenan, CCC-RETORT PRESS OPERATOR 8 [place] [address] 09/09/2025 8:30 AM EDT Office Visit Psychiatric 8 [place] [address] Sergey Tyson MD [address] [place] [address] Lorri Keenan CCC-RETORT PRESS OPERATOR 8 [place] [address] 09/16/2025 8:30 AM EDT Office Visit [address] [address] Sergey Tyson MD [address] [place] [address] Lorri Keenan CCC-RETORT PRESS OPERATOR [address] [place] [address] 09/23/2025 9:30 AM EDT Office Visit [address] [address] Sergey Tyson MD [address] [place] [address] Lorri Keenan CCC-RETORT PRESS OPERATOR [address] [place] [address] 10/01/2025 10:30 AM EST Office Visit [address] [address] Sergey Tyson MD [address] [place] [address] Lorri Keenan CCC-RETORT PRESS OPERATOR 8 [place] [address] 10/08/2025 10:30 AM EST Office Visit [facility] [address] [place] [address] Sergey Tyson MD [address] [place] [address] Lorri Keenan CCC-RETORT PRESS OPERATOR 8 [place] [address] 10/11/2025 1:30 PM EST Office Visit [facility] Pulmonary, Allergy and Critical Care Medicine [address] [place] [address] Rj Leiva MD [address] [place] [address] [email or web address] 10/15/2025 10:30 AM EST Office Visit [facility] 8 [place] [address] Sergey Tyson MD [address] [place] [address] Lorri Keenan CCC-RETORT PRESS OPERATOR 8 [place] [address] 10/18/2025 8:30 AM EST Office Visit [facility] [address] [place] [address] Sergey Tyson MD [address] [place] [address] Lorri Keenan CCC-RETORT PRESS OPERATOR 8 [place] [address] 10/28/2025 9:30 AM EST Office Visit [facility] [address] [place] [address] Sergey Tyson MD [address] [place] [address] Lorri Keenan CCC-RETORT PRESS OPERATOR 8 [place] [address] 11/05/2025 10:30 AM EST Office Visit [facility] 8 [place] [address] Sergey Tyson MD [address] [place] [address] Lorri Keenan CCC-RETORT PRESS OPERATOR 8 [place] [address] 11/12/2025 10:30 AM EST Office Visit [facility] 8 [place] [address] Sergey Tyson MD [address] [place] [address] Lorri Keenan CCC-RETORT PRESS OPERATOR 8 [place] [address] 11/19/2025 9:30 AM EST Office Visit [facility] 8 [place] [address] Sergey Tyson MD [address] [place] [address] Lorri Keenan CCC-RETORT PRESS OPERATOR 8 [place] [address] 12/10/2025 2:45 PM EST Office Visit [facility] Gastroenterology Clinic 10 [place], [place] [phone] Unknown, Unknown, MD Murry, Karlos Martines MD [address] [place] [address] [email or web address] 04/28/2026 8:00 AM EDT Office Visit [facility] Internal Medicine 40 [place] [address] Sergey Tyson MD 40 [place] [address] [email or web address] 05/20/2026 9:00 AM EDT Office Visit [facility] 30 [place] [address] Apple Talavera MD [address] [place] [address] [email or web address] documented as of this encounter Visit Diagnoses Not on filedocumented in this encounter Additional Health Concerns Assessment Noted Time PHQ-2 Depression Total Score: 0 09/08/20 22 9:02 AM EDT documented as of this encounter Care Teams Social Sciences Instructor Relationship Specialty Start Date End Date Sergey Tyson MD [address] [place] [address] [email or web address] PCP - General Internal Medicine 05/10/22 Karlos Lyons MD [address] [place] [address] [email or web address] Insurance Assigned Provider 02/23/17 03/02/23 Omar Rocha MD [address] [place] [address] [email or web address] Physical Medicine and Rehabilitation 05/08/21 Sagar Leung MD [address], [address] [place] [address] [email or web address] Obstetrics and Gynecology 05/08/21 Yefri Hilliard MD [address] [place] [address] Endocrinology 05/08/21 Karlos Murry MD [address] [place] [address] [email or web address] Gastroenterology 02/27/22 Apple Talavera MD [address] [place] [address] [email or web address] Primary Oncologist Medical Oncology 02/19/23 Sergey Tyson MD [address] [place] [address] [email or web address] Insurance Assigned Provider 02/29/24 Mena Mcwilliams, RUSS [address] [place] [address] [email or web address] [employer] Staff Services Manager 11/13/23 12/11/23 documented as of this encounter Additional Source Comments The information contained in this document represents components of the legal health record. It is not the complete legal health record.[facility]
--- OUTSIDE RECORDS SUMMARY | 2025-08-20 11:17 | XMS_ITS | Encounter Summary ---
Author Organization [facility] Address [facility] [address] [place] [address] Phone Care Team Providers Care Mixer And Scaler Name Role Phone Karlos Lyons MD Unavailable Omar Rocha MD Unavailable Sagar Leung MD Unavailable Karlos Lyons MD Primary Care Provider Yefri Hilliard MD Unavailable Karlos Murry MD Unavailable [phone] Sergey Tyson MD Primary Care Provider [phone] Apple Talavera MD Unavailable [phone] Sergey Tyson MD Unavailable Mena Mcwilliams RN Unavailable [phone] Encounter Details Date Type Department Care Team (Late st Contact Info) Description 02/27/2022 Procedure Pass [address] [address] Social History Tobacco Use Types Packs/Day Years [...] Description 09/02/2025 9:30 AM EDT Office Visit [address] [address] Sergey Tyson MD [address] [place] [address] Lorri Keenan CCC-MOGUL OPERATOR [address] [place] [address] 09/09/2025 8:30 AM EDT Office Visit [address] [address] Sergey Tyson MD [address] [place] [address] Lorri Keenan CCC-MOGUL OPERATOR [address] [place] [address] 09/16/2025 8:30 AM EDT Office Visit [address] [address] Sergey Tyson MD [address] [place] [address] Lorri Keenan CCC-MOGUL OPERATOR 8 [place] [address] 09/23/2025 9:30 AM EDT Office Visit [facility] 8 [place] [address] Sergey Tyson MD [address] [place] [address] [email or web address] Lorri Keenan CCC-MOGUL OPERATOR 8 [place] [address] 10/01/2025 10:30 AM EST Office Visit [facility] 8 [place] [address] Sergey Tyson MD [address] [place] [address] [email or web address] Lorri Keenan CCC-MOGUL OPERATOR 8 [place] [address] 10/08/2025 10:30 AM EST Office Visit [facility] 8 [place] [address] Sergey Tyson MD [address] [place] [address] Lorri Keenan CCC-MOGUL OPERATOR 8 [place] [address] 10/11/2025 1:30 PM EST Office Visit [facility] Pulmonary, Allergy and Critical Care Medicine [address] [place] [address] Rj Leiva MD [address] [place] [address] [email or web address] 10/15/2025 10:30 AM EST Office Visit [facility] [address] [place] [address] Sergey Tyson MD 40 [place] [address] Lorri Keenan CCC-MOGUL OPERATOR [address] [place] [address] 10/18/2025 8:30 AM EST Office Visit [address] [address] Sergey Tyson MD [address] [place] [address] Lorri Keenan CCC-MOGUL OPERATOR [address] [place] [address] 10/28/2025 9:30 AM EST Office Visit [address] [address] Sergey Tyson MD [address] [place] [address] Lorri Keenan CCC-MOGUL OPERATOR [address] [place] [address] 11/05/2025 10:30 AM EST Office Visit [facility] 8 [place] [address] Sergey Tyson MD [address] [place] [address] Lorri Keenan CCC-MOGUL OPERATOR [address] [place] [address] 11/12/2025 10:30 AM EST Office Visit [facility] 8 [place] [address] Sergey Tyson MD [address] [place] [address] Lorri Keenan CCC-MOGUL OPERATOR 8 [place] [address] 11/19/2025 9:30 AM EST Office Visit [facility] Rehabilitation Services 8 [place] [address] Sergey Tyson MD 40 [place] [address] Lorri Keenan CCC-MOGUL OPERATOR 8 [place] [address] 12/10/2025 2:45 PM EST Office Visit [facility] Gastroenterology Clinic [address] [place] [address] Unknown, Unknown, MD Murry, Karlos Martines MD [address] [place] [address] 04/28/2026 8:00 AM EDT Office Visit [facility] Internal Medicine [address] [place] [address] Sergey Tyson MD [address] [place] [address] 05/20/2026 9:00 AM EDT Office Visit [facility] at [address] [address] Apple Talavera MD [address] [place] [address] documented as of this encounter Visit Diagnoses Not on filedocumented in this encounter Additional Health Concerns Infection Onset Date Last Indicated Resolved Time CoV-Risk 05/07/2022 05/07/2022 05/18/2022 1:24 AM EDT Assessment Noted Time PHQ-2 Depression Total Score: 0 01/28/20 23 6:26 PM EST documented as of this encounter Care Teams Mixer And Scaler Relationship Specialty Start Date End Date Karlos Lyons MD [address] [address] [email or web address] PCP - General Internal Medicine 05/08/21 05/09/22 Sergey Tyson MD [address] [place] [address] [email or web address] PCP - General Internal Medicine 05/10/22 Karlos Lyons MD [address] [place] [address] [email or web address] Insurance Assigned Provider 02/23/17 03/02/23 Omar Rocha MD [address] [place] [address] [email or web address] Physical Medicine and Rehabilitation 05/08/21 Sagar Leung MD [address] [place] [address], [address] [place] [address] [email or web address] Obstetrics and Gynecology 05/08/21 Yefri Hilliard MD [address] [place] [address] Endocrinology 05/08/21 Karlos Murry MD [address] [place] [address] [email or web address] Gastroenterology 02/27/22 Apple Talavera MD [address] [place] [address] [email or web address] Primary Oncologist Medical Oncology 02/19/23 Sergey Tyson MD [address] [place] [address] [email or web address] Insurance Assigned Provider 02/29/24 Mena Mcwilliams, RN 10 [place] [address] [email or web address] [employer] Senior Account Executive 11/13/23 12/11/23 documented as of this encounter Additional Source Comments The information contained in this document represents components of the legal health record. It is not the complete legal health record.[facility]
--- OUTSIDE RECORDS SUMMARY | 2025-08-20 11:17 | XMS_ITS | Encounter Summary ---
Author Organization [facility] Address [address] [place] [address] [address] [place] [address] Phone Care Team Providers Care Resource Technician Name Role Phone Karlos Lyons MD Primary Care Provider Karlos Lyons MD Unavailable [phone] Omar Rocha MD Unavailable [phone] Sagar Leung MD Unavailable Karlos Lyons MD Primary Care Provider + [phone] Yefri Hilliard MD Unavailable [phone] Karlos Murry MD Unavailable [phone] Sergey Tyson MD Primary Care Provider [phone] Apple Talavera MD Unavailable [phone] Sergey Tyson MD Unavailable Mena Mcwilliams RN Unavailable [phone] Encounter Details Date Type Department Care Team (Latest Contact Info) Description 01/27/2018 Prep for Procedure [facility] [place] [address] [place] [address] [phone] Apple Talavera MD [address] [place] [address] 42079 Malignant neoplasm of overlapping sites of left [...] Description 09/02/2025 9:30 AM EDT Office Visit [address] [address] Sergey Tyson MD [address] [place] [address] 50259 Lorri Keenan CCC-PHOTOGRAVURE PRESS OPERATOR [address] [place] [address] 09/09/2025 8:30 AM EDT Office Visit [address] [address] Sergey Tyson MD [address] [place] [address] 44[address] Lorri Keenan CCC-PHOTOGRAVURE PRESS OPERATOR 8 [place] [address] 09/16/2025 8:30 AM EDT Office Visit [address] [address] Sergey Tyson MD [address] [place] [address] Lorri Keenan CCC-PHOTOGRAVURE PRESS OPERATOR 8 [place] [address] 09/23/2025 9:30 AM EDT Office Visit [facility] 8 [place] [address] Sergey Tyson MD [address] [place] [address] 04266 Lorri Keenan CCC-PHOTOGRAVURE PRESS OPERATOR 8 [place] [address] 10/01/2025 10:30 AM EST Office Visit [facility] 8 [place] [address] Sergey Tyson MD [address] [place] [address] 61071 Lorri Keenan CCC-PHOTOGRAVURE PRESS OPERATOR 8 [place] [address] 10/08/2025 10:30 AM EST Office Visit [facility] 8 [place] [address] Sergey Tyson MD [address] [place] [address] 31051 Lorri Keenan CCC-PHOTOGRAVURE PRESS OPERATOR 8 [place] [address] 10/11/2025 1:30 PM EST Office Visit [facility] [place], Allergy and Critical Care Medicine [address] [place] [address] Rj Leiva MD [address] [place] [address] [email or web address] 10/15/2025 10:30 AM EST Office Visit [facility] 8 [place] [address] Sergey Tyson MD [address] [place] [address] 37[address] Lorri Keenan CCC-PHOTOGRAVURE PRESS OPERATOR 8 [place] [address] 10/18/2025 8:30 AM EST Office Visit [address] [address] Sergey Tyson MD [address] [place] [address] 58[address] Lorri Keenan CCC-PHOTOGRAVURE PRESS OPERATOR [address] [place] [address] 10/28/2025 9:30 AM EST Office Visit [address] [address] Sergey Tyson MD [address] [place] [address] 659[address] Lorri Keenan CCC-PHOTOGRAVURE PRESS OPERATOR [address] [place] [address] 11/05/2025 10:30 AM EST Office Visit [address] [address] Sergey Tyson MD [address] [place] [address] 65[address] Lorri Keenan CCC-PHOTOGRAVURE PRESS OPERATOR 8 [place] [address] 11/12/2025 10:30 AM EST Office Visit [facility] 8 [place] [address] Sergey Tyson MD [address] [place] [address] 18041 Lorri Keenan CCC-PHOTOGRAVURE PRESS OPERATOR 8 [place] [address] 11/19/2025 9:30 AM EST Office Visit [facility] 8 [place] [address] Sergey Tyson MD [address] [place] [address] 78699 Lorri Keenan CCC-PHOTOGRAVURE PRESS OPERATOR 8 [place] [address] 12/10/2025 2:45 PM EST Office Visit [facility] [address] [place] [address] Unknown, Unknown, MD Murry, Karlos Martines MD [address] [place] [address] 04/28/2026 8:00 AM EDT Office Visit [facility] Internal Medicine [address] [place] [address] Sergey Tyson MD [address] [place] [address] 05/20/2026 9:00 AM EDT Office Visit [facility] at [address] [address] Apple Talavera MD [address] [place] [address] [email or web address] documented as of this encounter Visit Diagnoses Diagnosis Malignant neoplasm of overlapping sites of left breast in female, estrogen receptor positive documented in this encounter Additional Health Concerns Infection Onset Date Last Indicated Resolved Time CoV-Risk 05/07/2022 05/07/2022 05/18/2022 1:24 AM EDT documented as of this encounter Care Teams Resource Technician Relationship Specialty Start Date End Date Karlos Lyons MD [address] [place] [address] [email or web address] PCP - General Internal Medicine 07/14/14 05/07/21 Karlos Lyons MD [address] [place] [address] [email or web address] PCP - General Internal Medicine 05/08/21 05/09/22 Sergey Tyson MD [address] [place] [address] 29[address] [email or web address] PCP - General Internal Medicine 05/10/22 Kralos Lyons MD [address] [place] [address] [email or web address] Insurance Assigned Provider 02/23/17 03/02/23 Omar Rocha MD [address] [place] [address] [email or web address] Physical Medicine and Rehabilitation 05/08/21 Sagar Leung MD [address] [place] [address], [address] [place] [address] Obstetrics and Gynecology 05/08/21 Yefri Hilliard MD [address] [place] [address] Endocrinology 05/08/21 Karlos Murry MD [address] [place] [address] [email or web address] Gastroenterology 02/27/22 Apple Talavera MD [address] [place] [email or web address] Primary Oncologist Medical Oncology 02/19/23 Sergey Tyson MD [address] [place] [address] [email or web address] Insurance Assigned Provider 02/29/24 Mena Mcwilliams, RN [address] [place] [address] [email or web address] iCMP [employer] 11/13/23 12/11/23 documented as of this encounter Additional Source Comments The information contained in this document represents components of the legal health record. It is not the complete legal health record.[facility]
--- OUTSIDE RECORDS SUMMARY | 2025-08-20 11:17 | XMS_ITS | Encounter Summary ---
Author Organization [facility] Address [address] [place] [address] [address] [place] [address] Phone Care Team Providers Care Access Rep Name Role Phone Karlos Lyons MD Primary Care Provider Karlos Lyons MD Unavailable [phone] Omar Rocha MD Unavailable [phone] Sagar Leung MD Unavailable Karlos Lyons MD Primary Care Provider + [phone] Yefri Hilliard MD Unavailable [phone] Karlos Murry MD Unavailable [phone] Sergey Tyson MD Primary Care Provider [phone] Apple Talavera MD Unavailable [phone] Sergey Tyson MD Unavailable Mena Mcwilliams RN Unavailable [phone] Encounter Details Date Type Department Care Team (Late st Contact Info) Description 08/06/2020 Procedure Pass [facility], [address] [phone] Social History Tobacco Use Types Packs/Day Years [...] Description 09/02/2025 9:30 AM EDT Office Visit [address] [address] Sergey Tyson MD [address] [place] [address] Lorri Keenan CCC-SOFTWARE SYSTEMS ARCHITECT [address] [place] [address] 09/09/2025 8:30 AM EDT Office Visit [address] [place] [address] Sergey Tyson MD [address] [place] [address]00 Lorri Keenan CCC-SOFTWARE SYSTEMS ARCHITECT [address] [place] [address] 09/16/2025 8:30 AM EDT Office Visit [address] [place] [address] Sergey Tyson MD [address] [place] [address] Lorri Keenan CCC-SOFTWARE SYSTEMS ARCHITECT [address] [place] [address] 09/23/2025 9:30 AM EDT Office Visit [facility] 8 [place] [address] Sergey Tyson MD [address] [place] [address] Lorri Keenan CCC-SOFTWARE SYSTEMS ARCHITECT 8 [place] [address] 10/01/2025 10:30 AM EST Office Visit [facility] 8 [place] [address] Sergey Tyson MD [address] [place] [address] Lorri Keenan CCC-SOFTWARE SYSTEMS ARCHITECT 8 [place] [address] 10/08/2025 10:30 AM EST Office Visit [facility] 8 [place] [address] Sergey Tyson MD [address] [place] [address] Lorri Keenan CCC-SOFTWARE SYSTEMS ARCHITECT 8 [place] [address] 10/11/2025 1:30 PM EST Office Visit [facility] Pulmonary, Allergy and Critical Care Medicine [address] [place] [address] [phone] Rj Leiva MD [address] [place] [address] [email or web address] 10/15/2025 10:30 AM EST Office Visit [facility] 8 [place] [address] Sergey Tyson MD [address] [place] [address] 69[address] Lorri Keenan CCC-SOFTWARE SYSTEMS ARCHITECT 8 [place] [address] 10/18/2025 8:30 AM EST Office Visit [address] [address] Sergey Tyson MD [address] [place] [address] 55[address] Lorri Keenan CCC-SOFTWARE SYSTEMS ARCHITECT [address] [place] [address] 10/28/2025 9:30 AM EST Office Visit [address] [address] Sergey Tyson MD [address] [place] [address] 14050 Lorri Keenan CCC-SOFTWARE SYSTEMS ARCHITECT [address] [place] [address] 11/05/2025 10:30 AM EST Office Visit [address] [address] Sergey Tyson MD [address] [place] [address] 24998 Lorri Keenan CCC-SOFTWARE SYSTEMS ARCHITECT 8 [place] [address] 11/12/2025 10:30 AM EST Office Visit [address] [address] Sergey Tyson MD 40 [place] [address] Lorri Keenan CCC-SOFTWARE SYSTEMS ARCHITECT 8 [place] [address] 11/19/2025 9:30 AM EST Office Visit [facility] 8 [place] [address] Sergey Tyson MD [address] [place] [address] 299[address] Lorri Keenan CCC-SOFTWARE SYSTEMS ARCHITECT 8 [place] [address] 12/10/2025 2:45 PM EST Office Visit [facility] [address] [place] [address] Unknown, Unknown, MD Murry, Karlos Martines MD [address] [place] [address] 04/28/2026 8:00 AM EDT Office Visit [facility] Internal Medicine [address] [place] [address] Sergey Tyson MD [address] [place] [address] 05/20/2026 9:00 AM EDT Office Visit [facility] [address] [place] [address] Apple Talavera MD [address] [place] [address] documented as of this encounter Visit Diagnoses Not on filedocumented in this encounter Additional Health Concerns Infection Onset Date Last Indicated Resolved Time CoV-Risk 05/07/2022 05/07/2022 05/18/2022 1:24 AM EDT Assessment Noted Time PHQ-2 Depression Total Score: 0 04/28/20 12:48 PM EDT documented as of this encounter Care Teams Access Rep Relationship Specialty Start Date End Date Karlos Lyons MD [address] [address] [email or web address] PCP - General Internal Medicine 07/14/14 05/07/21 Karlos Lyons MD [address] [place] [address] [email or web address] PCP - General Internal Medicine 05/08/21 05/09/22 Sergey Tyson MD [address] [place] [address] [email or web address] PCP - General Internal Medicine 05/10/22 Karlos Lyons MD [address] [place] [address] [email or web address] Insurance Assigned Provider 02/23/17 03/02/23 Omar Rocha MD [address] [place] [address] [email or web address] 05/08/21 Sagar Leung MD [address] [place] [address], [address] [place] [address] [email or web address] Obstetrics and Gynecology 05/08/21 Yefri Hilliard MD [address] [place] [address] Endocrinology 05/08/21 Karlos Murry MD [address] [place] [address] [email or web address] Gastroenterology 02/27/22 Apple Talavera MD [address] [place] [address] Primary Oncologist Medical Oncology 02/19/23 Sergey Tyson MD [address] [place] [address] Insurance Assigned Provider 02/29/24 Mena Mcwilliams, RN [address] [place] [address] [email or web address] iC[employer] 11/13/23 12/11/23 documented as of this encounter Additional Source Comments The information contained in this document represents components of the legal health record. It is not the complete legal health record.[facility]
--- OUTSIDE RECORDS SUMMARY | 2025-08-20 11:17 | XMS_ITS | Encounter Summary ---
Author Organization [facility] Address [facility] [address] [place] [address] Phone Care Team Providers Care Family Helper Name Role Phone Karlos Lyons MD Unavailable Omar Rocha MD Unavailable [phone] Sagar Leung MD Unavailable Karlos Lyons MD Primary Care Provider [phone] Yefri Hilliard MD Unavailable [phone] Karlos Murry MD Unavailable [phone] Sergey Tyson MD Primary Care Provider Apple Talavera MD Unavailable [phone] Sergey Tyson MD Unavailable Mena Mcwilliams RN Unavailable [phone] Encounter Details Date Type Department Care Team (Late st Contact Info) Description 05/07/2022 Procedure Pass [facility], Ct Scan - [address] [address] Social History Tobacco Use Types Packs/Day Years [...] high school, GED, job training, learning the Slovak language, technical skills, or developing parenting skills)? [...] 11:25 AM EDT Freddy Hart, RUSS * Cannon Suicide Severity Rating Scale (Screener/Recent Self-Report) Question Answer Date of Assessment Author 1. Wish to be (Past 1 Month) No 05/07/2022 11:25 AM EDT Edda Jaramillo, RUSS 2. Non-Specific Active Suicidal Thoughts (Past 1 Month) No 05/07/2022 11:25 AM EDT Edda Jaramillo, RUSS 6. Suicidal Behavior (Lifetime) No 05/07/2022 11:25 AM EDT Edda Jaramillo, RUSS documented as of this encounter Plan of Treatment Upcoming Encounters Date Type Department Care Team (Late st Contact Info) Description 09/02/2025 9:30 AM EDT Office Visit [facility] [address] [place] [address] Sergey Tyson MD [address] [place] [address] Lorri Keenan CCC-FIELD SUPPORT ENGINEER [address] [place] [address] 09/09/2025 8:30 AM EDT Office Visit [facility] [address] [place] [address] Sergey Tyson MD [address] [place] [address] Lorri Keenan CCC-FIELD SUPPORT ENGINEER [address] [place] [address] 09/16/2025 8:30 AM EDT Office Visit [facility] [address] [place] [address] Sergey Tyson MD [address] [place] [address] Lorri Keenan CCC-FIELD SUPPORT ENGINEER [address] [place] [address] 09/23/2025 9:30 AM EDT Office Visit [facility] [address] [place] [address] Sergey yTson MD [address] [place] [address] Lorri Keenan CCC-FIELD SUPPORT ENGINEER [address] [place] [address] 10/01/2025 10:30 AM EST Office Visit [facility] 8 [place] [address] Sergey Tyson MD [address] [place] [address] Lorri Keenan CCC-FIELD SUPPORT ENGINEER [address] [place] [address] 10/08/2025 10:30 AM EST Office Visit [facility] 8 [place] [address] Sergey Tyson MD [address] [place] [address]67 Lorri Keenan CCC-FIELD SUPPORT ENGINEER [address] [place] [address] 10/11/2025 1:30 PM EST Office Visit [facility] Pulmonary, Allergy and Critical Care Medicine [address] [place] [address] [phone] Rj Leiva MD [address] [place] [address] [email or web address] 10/15/2025 10:30 AM EST Office Visit [facility] 8 [place] [address] Sergey Tyson MD [address] [place] [address] Lorri Keenan CCC-FIELD SUPPORT ENGINEER 8 [place] [address] 10/18/2025 8:30 AM EST Office Visit [address] [place] [address] Sergey Tyson MD [address] [place] [address] 19956 Lorri Keenan CCC-FIELD SUPPORT ENGINEER 8 [place] [address] 10/28/2025 9:30 AM EST Office Visit [address] [place] [address] Sergey Tyson MD [address] [place] [address] Lorri Keenan CCC-FIELD SUPPORT ENGINEER [address] [place] [address] 11/05/2025 10:30 AM EST Office Visit [address] [place] [address] Sergey Tyson MD [address] [place] [address] Lorri Keenan CCC-FIELD SUPPORT ENGINEER [address] [place] [address] 11/12/2025 10:30 AM EST Office Visit [address] [place] [address] Sergey Tyson MD [address] [place] [address] Lorri Keenan CCC-FIELD SUPPORT ENGINEER [address] [place] [address] 11/19/2025 9:30 AM EST Office Visit [facility] 8 [place] [address] Sergey Tyson MD [address] [place] [address] Lorri Keenan, [facility]-FIELD SUPPORT ENGINEER 8 [place] [address] 12/10/2025 2:45 PM EST Office Visit [facility] [address] [place] [address] Unknown, Unknown, MD Murry, Karlos Martines MD [address] [place] [address] 04/28/2026 8:00 AM EDT Office Visit [facility] Internal Medicine 40 [place] [address] Sergey Tyson MD 40 [place] [address] 05/20/2026 9:00 AM EDT Office Visit [facility] [address] [place] [address] Apple Talavera MD [address] [place] [address] documented as of this encounter Visit Diagnoses Not on filedocumented in this encounter Additional Health Concerns Infection Onset Date Last Indicated Resolved Time CoV-Risk 05/07/2022 05/07/2022 05/18/2022 1:24 AM EDT Assessment Noted Time PHQ-2 Depression Total Score: 2 05/05/20 10:17 AM EDT documented as of this encounter Care Teams Family Helper Relationship Specialty Start Date End Date Karlos Lyons MD [address] [place] [address] [email or web address] PCP - General Internal Medicine 05/08/21 05/09/22 Sergey Tyson MD [address] [place] [address] [email or web address] PCP - General Internal Medicine 05/10/22 Karlos Lyons MD [address] [place] [address] [email or web address] Insurance Assigned Provider 02/23/17 03/02/23 Omar Rocha MD [address] [place] [address] [email or web address] 05/08/21 Sagar Leung MD [address] [place] [address] [email or web address] Obstetrics and Gynecology 05/08/21 Yefri Hilliard MD [address] [place] [address] Endocrinology 05/08/21 Karlos Murry MD [address] [place] [address] [email or web address] Gastroenterology 02/27/22 Apple Talavera MD [address] [place] [address] [email or web address] Primary Oncologist Medical Oncology 02/19/23 Sergey Tyson MD [address] [place] [address] [email or web address] Insurance Assigned Provider 02/29/24 Mena Mcwilliams, RN [address] [place] [address] [email or web address] iCMP Manager Underwriting 11/13/23 12/11/23 documented as of this encounter Additional Source Comments The information contained in this document represents components of the legal health record. It is not the complete legal health record.[facility]
--- OUTSIDE RECORDS SUMMARY | 2025-08-20 11:17 | XMS_ITS | Encounter Summary ---
Author Organization [facility] Address [address] [place] [address] 985 [place] [address] Phone Care Team Providers Care Scanner Supervisor Name Role Phone Karlos Lyons MD Primary Care Provider Karlos Lyons MD Unavailable [phone] Omar Rocha MD Unavailable [phone] Sagar Leung MD Unavailable Karlos Lyons MD Primary Care Provider + [phone] Yefri Hilliard MD Unavailable [phone] Karlos Murry MD Unavailable [phone] Sergey Tyson MD Primary Care Provider Apple Talavera MD Unavailable [phone] Sergey Tyson MD Unavailable Mena Mcwilliams RN Unavailable [phone] Encounter Details Date Type Department Care Team (Late st Contact Info) Description 04/20/2021 Procedure Pass [facility] Admitting Dept Virtual Department [address] [place] [address] Social History Tobacco Use Types [...] Description 09/02/2025 9:30 AM EDT Office Visit [address] [address] Sergey Tyson MD [address] [place] [address] Lorri Keenan CCC-RESEARCH AND DEVELOPMENT SPECIALIST [address] [place] [address] 09/09/2025 8:30 AM EDT Office Visit [address] [place] [address] Sergey Tyson MD [address] [place] [address] Lorri Keenan CCC-RESEARCH AND DEVELOPMENT SPECIALIST [address] [place] [address] 09/16/2025 8:30 AM EDT Office Visit [address] [place] [address] Sergey Tyson MD [address] [place] [address] Lorri Keenan CCC-RESEARCH AND DEVELOPMENT SPECIALIST [address] [place] [address] 09/23/2025 9:30 AM EDT Office Visit [facility] [address] [place] [address] Sergey Tyson MD [address] [place] [address] Lorri Keenan CCC-RESEARCH AND DEVELOPMENT SPECIALIST 8 [place] [address] 10/01/2025 10:30 AM EST Office Visit [facility] [address] [place] [address] Sergey Tyson MD [address] [place] [address] Lorri Keenan CCC-RESEARCH AND DEVELOPMENT SPECIALIST 8 [place] [address] 10/08/2025 10:30 AM EST Office Visit [facility] [address] [place] [address] Sergey Tyson MD [address] [place] [address] Lorri Keenan CCC-RESEARCH AND DEVELOPMENT SPECIALIST 8 [place] [address] 10/11/2025 1:30 PM EST Office Visit [facility] [place]monary, Allergy and Critical Care Medicine [address] [place] [address] [phone] Rj Leiva MD [address] [place] [address] [email or web address] 10/15/2025 10:30 AM EST Office Visit [facility] [address] [place] [address] Sergey Tyson MD [address] [place] [address] Lorri Keenan CCC-RESEARCH AND DEVELOPMENT SPECIALIST 8 [place] [address] 10/18/2025 8:30 AM EST Office Visit [address] [address] Sergey Tyson MD [address] [place] [address] Lorri Keenan CCC-RESEARCH AND DEVELOPMENT SPECIALIST [address] [place] [address] 10/28/2025 9:30 AM EST Office Visit [address] [address] Sergey Tyson MD [address] [place] [address] Lorri Keenan CCC-RESEARCH AND DEVELOPMENT SPECIALIST [address] [place] [address] 11/05/2025 10:30 AM EST Office Visit [address] [address] Sergey Tyson MD [address] [place] [address] Lorri Keenan CCC-RESEARCH AND DEVELOPMENT SPECIALIST 8 [place] [address] 11/12/2025 10:30 AM EST Office Visit [address] [address] Sergey Tyson MD 40 [place] [address] Lorri Keenan CCC-RESEARCH AND DEVELOPMENT SPECIALIST 8 [place] [address] 11/19/2025 9:30 AM EST Office Visit [facility] Services [address] [place] [address] Sergey Tyson MD [address] [place] [address] Lorri Keenan CCC-RESEARCH AND DEVELOPMENT SPECIALIST 8 [place] [address] 12/10/2025 2:45 PM EST Office Visit [facility] [address] [place] [address] Unknown, Unknown, MD Murry, Karlos Martines MD [address] [place] [address] 04/28/2026 8:00 AM EDT Office Visit [facility] [address] [place] [address] Sergey Tyson MD [address] [place] [address] 05/20/2026 9:00 AM EDT Office Visit [facility] 30 [place] [address] Apple Talavera MD [address] [place] [address] documented as of this encounter Visit Diagnoses Not on filedocumented in this encounter Additional Health Concerns Infection Onset Date Last Indicated Resolved Time CoV-Risk 05/07/2022 05/07/2022 05/18/2022 1:24 AM EDT Assessment Noted Time PHQ-2 Depression Total Score: 0 04/28/20 12:48 PM EDT documented as of this encounter Care Teams Scanner Supervisor Relationship Specialty Start Date End Date Karlos Lyons MD [address] [address] [email or web address] PCP - General Internal Medicine 07/14/14 05/07/21 Karlos Lyons MD [address] [place] [address] [email or web address] PCP - General Internal Medicine 05/08/21 05/09/22 Sergey Tyson MD [address] [place] [address] [email or web address] PCP - General Internal Medicine 05/10/22 Karlos Lyons MD [address] [place] [address] [email or web address] Insurance Assigned Provider 02/23/17 03/02/23 Omar Rocha MD [address] [place] [address] [email or web address] Physical Medicine and Rehabilitation 05/08/21 Sagar Leung MD [address] [place] [address], [address] [place] [address] [email or web address] Obstetrics and Gynecology 05/08/21 Yefri Hilliard MD [address] [place] [address] Endocrinology 05/08/21 Karlos Murry MD [address] [place] [address] [email or web address] Gastroenterology 02/27/22 Apple Talavera MD [address] [place] [email or web address] Primary Oncologist Medical Oncology 02/19/23 Sergey Tyson MD [address] [place] [address] Insurance Assigned Provider 02/29/24 Mena Mcwilliams, RN [address] [place] [address] [email or web address] Project Estimator 11/13/23 12/11/23 documented as of this encounter Additional Source Comments The information contained in this document represents components of the legal health record. It is not the complete legal health record.[facility]
--- OUTSIDE RECORDS SUMMARY | 2025-08-20 11:18 | XMS_ITS | Encounter Summary ---
Author Organization [facility] Address [address] [facility] [address] [place] [address] Phone Care Team Providers Care Assorter Laundry Name Role Phone Omar Rocha MD Unavailable [phone] Sagar Leung MD Unavailable Yefri Hilliard MD Unavailable [phone] Karlos Murry MD Unavailable [phone] Sergey Tyson MD Primary Care Provider Apple Talavera MD Unavailable [phone] Sergey Tyson MD Unavailable Encounter Details Date Type Department Care Team (Late st Contact Info) Description 08/05/2025 Orders Only [facility] 40 [place], [place] [phone] Sergey Tyson MD 40 [place] [address] [email or web address] Social History Tobacco Use Types Packs/Day Years Used Date Smoking Tobacco: Former Cigarettes 1.5 7 0 11/25/1963 - 1970 Smokeless Tobacco: Never Comments:quit 1970 Alcohol Use Standard Drinks/Week Comments Never 0 (1 standard drink = 0.6 oz pur e alcohol) Child or Family Care Answer Date Record ed Do you have problems with on e of the following making it difficult for you to work, study, or receive health care? No 04/07/2025 Education Answer Date Recorded Are you interested in more education? Not on usama e 02/02/2025 Are you concerned about learning? Not on file 02/02/2025 No 02/02/2025 No 02/02/2025 Food Answer Date Recorded Within the past 6 months we worried whether our food would run out before we got money to buy more. Sometimes True 025 Within the past 6 months the food we bought just didn't last and we didn't have enough money to get more. Sometimes True 03/25 Residential Stability Answer Date Recor ded What is your housing situation today? I have yun sing 04/07/2025 How many times have you move d in the past 12 months? Zero (I did not move) 04/07/2025 Paying for Meds Answer Date Recorded Do you have trouble paying for medicines? No 04/07/2025 Paying Utility Bills Answer Date Record ed Do you have trouble paying your heating or elect ricity bill? Yes 04/07/2025 Transportation Answer Date Recorded Has the lack of transportati on kept you from medical appointments or from getting medications? No 04/07/2025 Unemployment Answer Date Recorded Are you currently unemployed or working on a part-time or temporary basis, and looking for work? No 01/27/2023 Digital Access Answer Date Recorded No 04/07/2025 Yes 04/07/2025 Do you have reliable internet access at home? Ye s 04/07/2025 Do you have a device (e.g., phone, tablet, computer) with a working camera? Yes 04/07/2025 Intimate Partner Violence Answer Date R ecorded Denied Basic Needs Not on file 04/07/2025 In the past 12 months have y ou been in a relationship with a person who hurts, threatens, or tries to control you? No 04/07/2025 Worried food would run out Not on file 04/07 In the past 12 months have y ou been in a relationship with a person who hurts, threatens, or tries to control you? No 04/07/2025 Comments No Sex and Gender Information Value [...] Description 09/02/2025 9:30 AM EDT Office Visit [facility] 8 [place] [address] Sergey Tyson MD [address] [place] [address] Lorri Keenan CCC-PRINTING EQUIPMENT MECHANIC APPRENTICE 8 [place] [address] 09/09/2025 8:30 AM EDT Office Visit [facility] 8 [place] [address] Sergey Tyson MD [address] [place] [address] Lorri Keenan CCC-PRINTING EQUIPMENT MECHANIC APPRENTICE 8 [place] [address] 09/16/2025 8:30 AM EDT Office Visit [facility] 8 [place] [address] Sergey Tyson MD [address] [place] [address] Lorri Keenan CCC-PRINTING EQUIPMENT MECHANIC APPRENTICE 8 [place] [address] 09/23/2025 9:30 AM EDT Office Visit [facility] 8 [place] [address] Sergey Tyson MD [address] [place] [address] [email or web address] Lorri Keenan CCC-PRINTING EQUIPMENT MECHANIC APPRENTICE 8 [place] [address] 10/01/2025 10:30 AM EST Office Visit [facility] 8 [place] [address] Sergey Tyson MD [address] [place] [address] [email or web address] Lorri Keenan CCC-PRINTING EQUIPMENT MECHANIC APPRENTICE 8 [place] [address] 10/08/2025 10:30 AM EST Office Visit [facility] 8 [place] [address] Sergey Tyson MD [address] [place] [address] Lorri Keenan CCC-PRINTING EQUIPMENT MECHANIC APPRENTICE 8 [place] [address] 10/11/2025 1:30 PM EST Office Visit [facility] Pulmonary, Allergy and Critical Care Medicine [address] [place] [address] Rj Leiva MD [address] [place] [address] [email or web address] 10/15/2025 10:30 AM EST Office Visit [facility] 8 [place] [address] Sergey Tyson MD [address] [place] [address] Lorri Keenan CCC-PRINTING EQUIPMENT MECHANIC APPRENTICE 8 [place] [address] 10/18/2025 8:30 AM EST Office Visit [address] [address] Sergey Tyson MD [address] [place] [address] Lorri Keenan CCC-PRINTING EQUIPMENT MECHANIC APPRENTICE [address] [place] [address] 10/28/2025 9:30 AM EST Office Visit [address] [address] Sergey Tyson MD [address] [place] [address] Lorri Keenan CCC-PRINTING EQUIPMENT MECHANIC APPRENTICE [address] [place] [address] 11/05/2025 10:30 AM EST Office Visit [facility] [address] [place] [address] Sergey Tyson MD [address] [place] [address] Lorri Keenan CCC-PRINTING EQUIPMENT MECHANIC APPRENTICE 8 [place] [address] 11/12/2025 10:30 AM EST Office Visit [address] [address] Sergey Tyson MD [address] [place] [address] Lorri Keenan CCC-PRINTING EQUIPMENT MECHANIC APPRENTICE 8 [place] [address] 11/19/2025 9:30 AM EST Office Visit [facility] 8 [place] [address] Sergey Tyson MD 40 [place] [address] Lorri Keenan CCC-PRINTING EQUIPMENT MECHANIC APPRENTICE 8 [place] [address] 12/10/2025 2:45 PM EST Office Visit [facility]ology [facility] [address] [place] [address] Unknown, Unknown, MD Murry, Karlos Martines MD [address] [place] [address] 04/28/2026 8:00 AM EDT Office Visit [facility] Internal Medicine [address] [place] [address] Sergey Tyson MD [address] [place] [address] 05/20/2026 9:00 AM EDT Office Visit [facility] 30 [place] [address] Apple Talavera MD [address] [place] [address] documented as of this encounter Visit Diagnoses Not on filedocumented in this encounter Additional Health Concerns Assessment Noted Time PHQ-9 Depression Total Score: 3 09/11/20 24 9:24 AM EDT PHQ-2 Depression Total Score: 0 05/14/20 25 12:34 PM EDT documented as of this encounter Care Teams Assorter Laundry Relationship Specialty Start Date End Date Sergey Tyosn MD 40 [place] [address] PCP - General Internal Medicine 05/10/22 Omar Rocha MD [email or web address] Physical Medicine and Rehabilitation 05/08/21 Sagar Leung MD [address] [place] [address] Obstetrics and Gynecology 05/08/21 Yefri Hilliard MD [address] [place] [address] Endocrinology 05/08/21 Karlos Murry MD [address] [place] [address] Gastroenterology 02/27/22 Apple Talavera MD [address] [place] [address] Primary Oncologist Medical Oncology 02/19/23 Sergey Tyson MD 40 [place] [address] Insurance Assigned Provider 02/29/24 documented as of this encounter Additional Source Comments The information contained in this document represents components of the legal health record. It is not the complete legal health record.[facility]
--- OUTSIDE RECORDS SUMMARY | 2025-08-20 11:18 | XMS_ITS | Encounter Summary ---
Author Organization [facility] Address Critical access hospital [facility] [address] [place] [address] Phone Care Team Providers Care Cheerleading Coach Name Role Phone Omar Rocha MD Unavailable Sagar Leung MD Unavailable Yefri Hilliard MD Unavailable [phone] Karlos Murry MD Unavailable [phone] Sergey Tyson MD Primary Care Provider [phone] Apple Talavera MD Unavailable [phone] Sergey Tyson MD Unavailable Encounter Details Date Type Department Care Team (Late st Contact Info) Description 05/12/2025 Procedure Pass [address] [address] Social History Tobacco Use Types Packs/Day Years [...] Description 09/02/2025 9:30 AM EDT Office Visit [facility] [address] [place] [address] Sergey Tyson MD [address] [place] [address] Lorri Keenan CCC-CORPORATE TECHNICAL RECRUITER [address] [place] [address] 09/09/2025 8:30 AM EDT Office Visit [facility] [address] [place] [address] Sergey Tyson MD [address] [place] [address] Lorri Keenan CCC-CORPORATE TECHNICAL RECRUITER [address] [place] [address] 09/16/2025 8:30 AM EDT Office Visit [facility] [address] [place] [address] Sergey Tyson MD [address] [place] [address] Lorri Keenan CCC-CORPORATE TECHNICAL RECRUITER [address] [place] [address] 09/23/2025 9:30 AM EDT Office Visit [facility] [address] [place] [address] Sergey Tyson MD [address] [place] [address] Lorri Keenan CCC-CORPORATE TECHNICAL RECRUITER 8 [place] [address] 10/01/2025 10:30 AM EST Office Visit [facility] 8 [place] [address] Sergey Tyson MD [address] [place] [address] Lorri Keenan CCC-CORPORATE TECHNICAL RECRUITER [address] [place] [address] 10/08/2025 10:30 AM EST Office Visit [address] [address] Sergey Tyson MD [address] [place] [address] Lorri Keenan CCC-CORPORATE TECHNICAL RECRUITER [address] [place] [address] 10/11/2025 1:30 PM EST Office [place] [facility] [place], Allergy and Critical Care Medicine [address] [place] [address] Rj Leiva MD [address] [place] [address] [email or web address] 10/15/2025 10:30 AM EST Office Visit [address] [address] Sergey Tyson MD [address] [place] [address] Lorri Keenan CCC-CORPORATE TECHNICAL RECRUITER 8 [place] [address] 10/18/2025 8:30 AM EST Office Visit [facility] [address] [place] [address] Sergey Tyson MD [address] [place] [address] Lorri Keenan CCC-CORPORATE TECHNICAL RECRUITER 8 [place] [address] 10/28/2025 9:30 AM EST Office Visit [address] [place] [address] Sergey Tyson MD [address] [place] [address] Lorri Keenan CCC-CORPORATE TECHNICAL RECRUITER [address] [place] [address] 11/05/2025 10:30 AM EST Office Visit [address] [place] [address] Sergey Tyson MD [address] [place] [address] Lorri Keenan CCC-CORPORATE TECHNICAL RECRUITER [address] [place] [address] 11/12/2025 10:30 AM EST Office Visit [address] [place] [address] Sergey Tyson MD [address] [place] [address] Lorri Keenan CCC-CORPORATE TECHNICAL RECRUITER 8 [place] [address] 11/19/2025 9:30 AM EST Office Visit [facility] 8 [place] [address] Sergey Tyson MD 40 [place] [address] Lorri Keenan, [facility]-CORPORATE TECHNICAL RECRUITER 8 [place] [address] 12/10/2025 2:45 PM EST Office Visit [facility] [address] [place] [address] Unknown, Unknown, MD Murry, Karlos Martines MD [address] [place] [address] 04/28/2026 8:00 AM EDT Office Visit [facility] Internal Medicine [address] [place] [address] Sergey Tyson MD [address] [place] [address] 05/20/2026 9:00 AM EDT Office Visit [facility] at [address] [address] Apple Talavera MD [address] [place] [address] documented as of this encounter Visit Diagnoses Not on filedocumented in this encounter Additional Health Concerns Assessment Noted Time PHQ-9 Depression Total Score: 3 09/11/20 24 9:24 AM EDT PHQ-2 Depression Total Score: 0 04/07/20 25 12:34 PM EDT documented as of this encounter Care Teams Cheerleading Coach Relationship Specialty Start Date End Date Sergey Tyson MD [address] [place] [address] PCP - General Internal Medicine 05/10/22 Omar Rocha MD [email or web address] Physical Medicine and Rehabilitation 05/08/21 Sagar Leung MD [address] [place] [address] [address] [place] [address] Obstetrics and Gynecology 05/08/21 Yefri Hilliard MD [address] [place] [address] Endocrinology 05/08/21 Karlos Murry MD [address] [place] [address] Gastroenterology 02/27/22 Apple Talavera MD [address] [place] [address] [email or web address] Primary Oncologist Medical Oncology 02/19/23 Sergey Tyson MD 40 [place] [address] Insurance Assigned Provider 02/29/24 documented as of this encounter Additional Source Comments The information contained in this document represents components of the legal health record. It is not the complete legal health record.[facility]
--- OUTSIDE RECORDS SUMMARY | 2025-08-20 11:18 | XMS_ITS | Encounter Summary ---
Author Organization [facility] Address [address] [place] [address] 985 [place] [address] Phone Care Team Providers Care Security Software Engineer Name Role Phone Karlos Lyons MD Unavailable [phone] Omar Rocha MD Unavailable [phone] Sagar Leung MD Unavailable Karlos Lyons MD Primary Care Provider + [phone] Yefri Hilliard MD Unavailable [phone] Karlos Murry MD Unavailable [phone] Sergey Tyson MD Primary Care Provider [phone] Apple Talavera MD Unavailable [phone] Sergey Tyson MD Unavailable Mena Mcwilliams RN Unavailable [phone] Reason for Referral * MRI/CAT Scan - Closed Specialty Diagnoses / Procedures Referred By Jessica balbuena Referred To Contact Radiology Diagnoses Vision loss Nonintractable headache, unspecified chronicity pattern, unspecified headache type Procedures MRI Brain Berto Quintanilla MD Phone: tel: fax: [email or web address] Referral ID Status Reason Start Date Expiration Date Visits Re quested Visits Authorized [id number] Closed 02/22/2022 02/22/2023 1 1 Encounter Details Date Type Department Care Team (Latest Contact Info) Description 02/22/2022 Transcribe Orders Virtual Department [address] [place] [address] Berto Quintanilla MD [address] [place] [address], [address] [place] [address] [email or web address] Vision loss (Primary [...] Description 09/02/2025 9:30 AM EDT Office Visit [facility] 8 [place] [address] Sergey Tyson MD [address] [place] [address] [email or web address] Lorri Keenan, [facility] 8 [place] [address] 09/09/2025 8:30 AM EDT Office Visit [facility] 8 [place] [address] Sergey Tyson MD [address] [place] [address] Lorri Keenan CCC-CARDIAC TECH [address] [place] [address] 09/16/2025 8:30 AM EDT Office Visit [address] [address] Sergey Tyson MD [address] [place] [address] Lorri Keenan CCC-CARDIAC TECH [address] [place] [address] 09/23/2025 9:30 AM EDT Office Visit [address] [address] Sergey Tyson MD [address] [place] [address] Lorri Keenan CCC-CARDIAC TECH [address] [place] [address] 10/01/2025 10:30 AM EST Office Visit [address] [address] Sergey Tyson MD [address] [place] [address] Lorri Keenan CCC-CARDIAC TECH 8 [place] [address] 10/08/2025 10:30 AM EST Office Visit [address] [address] Sergey Tyson MD [address] [place] [address] Lorri Keenan CCC-CARDIAC TECH 8 [place] [address] 10/11/2025 1:30 PM EST Office Visit [facility] Pulmonary, Allergy and Critical Care Medicine [address] [place] [address] Rj Leiva MD [address] [place] [address] [email or web address] 10/15/2025 10:30 AM EST Office Visit [facility] 8 [place] [address] Sergey Tyson MD [address] [place] [address] Lorri Keenan CCC-CARDIAC TECH [address] [place] [address] 10/18/2025 8:30 AM EST Office Visit [facility] 8 [place] [address] Sergey Tyson MD [address] [place] [address] Lorri Keenan CCC-CARDIAC TECH 8 [place] [address] 10/28/2025 9:30 AM EST Office Visit [facility] 8 [place] [address] Sergey Tyson MD [address] [place] [address] Lorri Keenan CCC-CARDIAC TECH 8 [place] [address] 11/05/2025 10:30 AM EST Office Visit [facility] 8 [place] [address] Sergey Tyson MD [address] [place] [address] Lorri Keenan CCC-CARDIAC TECH 8 [place] [address] 11/12/2025 10:30 AM EST Office Visit [facility] 8 [place] [address] Sergey Tyson MD [address] [place] [address] Lorri Keenan CCC-CARDIAC TECH 8 [place] [address] 11/19/2025 9:30 AM EST Office Visit [facility] 8 [place] [address] Sergey Tyson MD [address] [place] [address] Lorri Keenan CCC-CARDIAC TECH 8 [place] [address] 12/10/2025 2:45 PM EST Office Visit [facility] [address] [place] [address] Unknown, Unknown, MD Murry, Karlos Martines MD [address] [place] [address] [id number] 04/28/2026 8:00 AM EDT Office Visit [facility] Internal Medicine [address] [place] [address] Sergey Tyson MD 40 [place] [address] [email or web address] 05/20/2026 9:00 AM EDT Office Visit [facility] 30 [place] [address] Apple Talavera MD [address] [place] [address] [email or web address] documented as of this encounter Results * [...] was performed withoutintravenous contrast. COMPARISON: MRI-[facility] FINDINGS: Brain Parenchyma: No evidence of [...] are likely benign. us Berto Quintanilla MD [facility] MR HEAD/NECK Final Resul t * US Carotid Duplex Complete (Bilateral) (03/14/2022 4:02 PM EDT) Anatomical Region Laterality Modality Heart, Thoracic Vasculature, Neck Ultrasound 03/15/2022 11:0 6 AM EDT Impressions 03/15/2022 11:15 AM EDT 1. No hemodynamically significant internal carotid artery stenosis. 2. Bilateral antegrade vertebral artery flow. Narrative 03/15/2022 11:15 [...] stenosis. 2. Bilateral antegrade vertebral artery flow. us Berto Quintanilla MD US NEUROVASCULAR Final Re [...] documented as of this encounter Care Teams Security Software Engineer Relationship Specialty Start Date End Date Karlos Lyons MD [address] [address] [email or web address] PCP - General Internal Medicine 05/08/21 05/09/22 Sergey Tyson MD [address] [place] [address] [email or web address] PCP - General Internal Medicine 05/10/22 Karlos Lyons MD [address] [place] [address] [email or web address] Insurance Assigned Provider 02/23/17 03/02/23 Omar Rocha MD [address] [place] [address] [email or web address] and [email or web address] 05/08/21 Sgaar Leung MD [address] [place] [address] [address] [place] [address] [email or web address] Obstetrics and Gynecology 05/08/21 Yefri Hilliard MD [address] [place] [address] Endocrinology 05/08/21 Karlos Murry MD [address] [place] [address] [email or web address] Gastroenterology 02/27/22 Apple Talavera MD [address] [place] [address] [email or web address] Primary Oncologist Medical Oncology 02/19/23 Sergey Tyson MD [address] [place] [address] [email or web address] Insurance Assigned Provider 02/29/24 Mena Mcwilliams, RN [address] [place] [address] [email or web address] iCMP Incident Analyst 11/13/23 12/11/23 documented as of this encounter Additional Source Comments The information contained in this document represents components of the legal health record. It is not the complete legal health record.[facility]
--- OUTSIDE RECORDS SUMMARY | 2025-08-20 11:18 | XMS_ITS | Encounter Summary ---
Author Organization [facility] Address [facility] [employer] [facility] [address] [place] [address] Phone Care Team Providers Care Chemical Engineer Name Role Phone Karlos Lyons MD Unavailable Omar Rocha MD Unavailable [phone] Sagar Leung MD Unavailable Karlos Lyons MD Primary Care Provider Yefri Hilliard MD Unavailable Karlos Murry MD Unavailable [phone] Sergey Tyson MD Primary Care Provider Apple Talavera MD Unavailable [phone] Sergey Tyson MD Unavailable Mena Mcwilliams RN Unavailable [phone] Encounter Details Date Type Department Care Team (Late st Contact Info) Description 02/22/2022 Procedure Pass [facility], [address] [address] Social History Tobacco Use Types Packs/Day Years [...] Description 09/02/2025 9:30 AM EDT Office Visit [address] [address] Sergey Tyson MD [address] [place] [address] Lorri Keenan CCC-RESIST COATER DEVELOPER [address] [place] [address] 09/09/2025 8:30 AM EDT Office Visit [address] [address] Sergey Tyson MD [address] [place] [address] Lorri Keenan CCC-RESIST COATER DEVELOPER [address] [place] [address] 09/16/2025 8:30 AM EDT Office Visit [address] [address] Sergey Tyson MD [address] [place] [address] Lorri Keenan CCC-RESIST COATER DEVELOPER 8 [place] [address] 09/23/2025 9:30 AM EDT Office Visit [facility] 8 [place] [address] Sergey Tyson MD [address] [place] [address] [email or web address] Lorri Keenan CCC-RESIST COATER DEVELOPER 8 [place] [address] 10/01/2025 10:30 AM EST Office Visit [facility] 8 [place] [address] Sergey Tyson MD [address] [place] [address] [email or web address] Lorri Keenan CCC-RESIST COATER DEVELOPER 8 [place] [address] 10/08/2025 10:30 AM EST Office Visit [facility] 8 [place] [address] Sergey Tyson MD [address] [place] [address] Lorri Keenan CCC-RESIST COATER DEVELOPER 8 [place] [address] 10/11/2025 1:30 PM EST Office Visit [facility] Pulmonary, Allergy and Critical Care Medicine [address] [place] [address] Rj Leiva MD [address] [place] [address] [email or web address] 10/15/2025 10:30 AM EST Office Visit [facility] 8 [place] [address] Sergey Tyson MD 40 [place] [address] Lorri Keenan CCC-RESIST COATER DEVELOPER [address] [place] [address] 10/18/2025 8:30 AM EST Office Visit [address] [address] Sergey Tyson MD [address] [place] [address] Lorri Keenan CCC-RESIST COATER DEVELOPER [address] [place] [address] 10/28/2025 9:30 AM EST Office Visit [address] [address] Sergey Tyson MD [address] [place] [address] Lorri Keenan CCC-RESIST COATER DEVELOPER [address] [place] [address] 11/05/2025 10:30 AM EST Office Visit [facility] 8 [place] [address] Sergey Tyson MD [address] [place] [address] Lorri Keenan CCC-RESIST COATER DEVELOPER [address] [place] [address] 11/12/2025 10:30 AM EST Office Visit [facility] 8 [place] [address] Sergey Tyson MD [address] [place] [address] Lorri Keenan CCC-RESIST COATER DEVELOPER 8 [place] [address] 11/19/2025 9:30 AM EST Office Visit [facility] 8 [place] [address] Sergey Tyson MD 40 [place] [address] Lorri Keenan CCC-RESIST COATER DEVELOPER 8 [place] [address] 12/10/2025 2:45 PM EST Office Visit [facility] Gastroenterology Clinic [address] [place] [address] Unknown, Unknown, MD Murry, Karlos Martines MD [address] [place] [address] 04/28/2026 8:00 AM EDT Office Visit [facility] Internal Medicine [address] [place] [address] Sergey Tyson MD [address] [place] [address] 05/20/2026 9:00 AM EDT Office Visit [facility] at [address] [address] Apple Talavera MD [address] [place] [address] [email or web address] documented as of this encounter Visit Diagnoses Not on filedocumented in this encounter Additional Health Concerns Infection Onset Date Last Indicated Resolved Time CoV-Risk 05/07/2022 05/07/2022 05/18/2022 1:24 AM EDT Assessment Noted Time PHQ-2 Depression Total Score: 0 05/05/20 21 9:23 PM EDT documented as of this encounter Care Teams Chemical Engineer Relationship Specialty Start Date End Date Karlos Lyons MD [address] [address] [email or web address] PCP - General Internal Medicine 05/08/21 05/09/22 Sergey Tyson MD [address] [place] [address] [email or web address] PCP - General Internal Medicine 05/10/22 Karlos Lyons MD [address] [place] [address] [email or web address] Insurance Assigned Provider 02/23/17 03/02/23 Omar Rocha MD [address] [place] [address] [email or web address] Physical Medicine and Rehabilitation 05/08/21 Sagar Leung MD [address] [place] [address] 102 [place] [address] [email or web address] Obstetrics and Gynecology 05/08/21 Yefri Hilliard MD [address] [place] [address] Endocrinology 05/08/21 Karlos Murry MD [address] [place] [address] [email or web address] Gastroenterology 02/27/22 Apple Talavera MD [address] [place] [address] [email or web address] Primary Oncologist Medical Oncology 02/19/23 Sergey Tyson MD [address] [place] [address] [email or web address] Insurance Assigned Provider 02/29/24 Mena Mcwilliams, RN [address] [place] [address] [phone] [email or web address] iCMP Pool Finisher 11/13/23 12/11/23 documented as of this encounter Additional Source Comments The information contained in this document represents components of the legal health record. It is not the complete legal health record.[facility]
--- OUTSIDE RECORDS SUMMARY | 2025-08-20 11:18 | XMS_ITS | Encounter Summary ---
Author Organization [facility] Address [facility] [address] [place] [address] Phone Care Team Providers Care School Nurse Name Role Phone Karlos Lyons MD Unavailable Omar Rocha MD Unavailable Sagar Leung MD Unavailable Karlos Lyons MD Primary Care Provider Yefri Hilliard MD Unavailable [phone] Karlos Murry MD Unavailable [phone] Sergey Tyson MD Primary Care Provider Apple Talavera MD Unavailable [phone] Sergey Tyson MD Unavailable Mena Mcwilliams RN Unavailable [phone] Encounter Details Date Type Department Care Team (Late st Contact Info) Description 05/25/2021 Procedure Pass [facility] Admitting Dept - Virtual Department [address] [place] [address] Social History Tobacco Use Types Packs/Day Years [...] Description 09/02/2025 9:30 AM EDT Office Visit [address] [address] Sergey Tyson MD [address] [place] [address] Lorri Keenan CCC-UNDERWRITING ANALYST [address] [place] [address] 09/09/2025 8:30 AM EDT Office Visit [address] [address] Sergey Tyson MD [address] [place] [address] Lorri Keenan CCC-UNDERWRITING ANALYST [address] [place] [address] 09/16/2025 8:30 AM EDT Office Visit [address] [address] Sergey Tyson MD [address] [place] [address] [email or web address] Lorri Keenan CCC-UNDERWRITING ANALYST 8 [place] [address] 09/23/2025 9:30 AM EDT Office Visit [facility] 8 [place] [address] Sergey Tyson MD [address] [place] [address] [email or web address] Lorri Keenan CCC-UNDERWRITING ANALYST 8 [place] [address] 10/01/2025 10:30 AM EST Office Visit [facility] 8 [place] [address] Sergey Tyson MD [address] [place] [address] [email or web address] Lorri Keenan CCC-UNDERWRITING ANALYST 8 [place] [address] 10/08/2025 10:30 AM EST Office Visit [facility] 8 [place] [address] Sergey Tyson MD [address] [place] [address] Lorri Keenan CCC-UNDERWRITING ANALYST 8 [place] [address] 10/11/2025 1:30 PM EST Office Visit [facility] Pulmonary, Allergy and Critical Care Medicine [address] [place] [address] Rj Leiva MD [address] [place] [address] [email or web address] 10/15/2025 10:30 AM EST Office Visit [facility] 8 [place] [address] Sergey Tyson MD 40 [place] [address] Lorri Keenan CCC-UNDERWRITING ANALYST [address] [place] [address] 10/18/2025 8:30 AM EST Office Visit [facility] 8 [place] [address] Sergey Tyson MD [address] [place] [address] Lorri Keenan CCC-UNDERWRITING ANALYST [address] [place] [address] 10/28/2025 9:30 AM EST Office Visit [address] [address] Sergey Tyson MD [address] [place] [address] Lorri Keenan CCC-UNDERWRITING ANALYST [address] [place] [address] 11/05/2025 10:30 AM EST Office Visit [facility] 8 [place] [address] Sergey Tyson MD [address] [place] [address] Lorri Keenan CCC-UNDERWRITING ANALYST [address] [place] [address] 11/12/2025 10:30 AM EST Office Visit [facility] 8 [place] [address] Sergey Tyson MD [address] [place] [address] Lorri Keenan CCC-UNDERWRITING ANALYST 8 [place] [address] 11/19/2025 9:30 AM EST Office Visit [facility] 8 [place] [address] Sergey Tyson MD [address] [place] [address] Lorri Keenan CCC-UNDERWRITING ANALYST 8 [place] [address] 12/10/2025 2:45 PM EST Office Visit [facility] Gastroenterology Clinic [address] [place] [address] Unknown, Unknown, MD Murry, Karlos Martines MD [address] [place] [address] 04/28/2026 8:00 AM EDT Office Visit [facility] Internal Medicine [address] [place] [address] Sergey Tyson MD [address] [place] [address] 05/20/2026 9:00 AM EDT Office Visit [facility] at [address] [address] Apple Talavera MD [address] [place] [address] documented as of this encounter Visit Diagnoses Not on filedocumented in this encounter Additional Health Concerns Infection Onset Date Last Indicated Resolved Time CoV-Risk 05/07/2022 05/07/2022 05/18/2022 1:24 AM EDT Assessment Noted Time PHQ-2 Depression Total Score: 0 05/05/20 21 9:23 PM EDT documented as of this encounter Care Teams School Nurse Relationship Specialty Start Date End Date Karlos Loyns MD [address] [place] [address] [email or web address] PCP - General Internal Medicine 05/08/21 05/09/22 Sergey Tyson MD [address] [place] [address] [email or web address] PCP - General Internal Medicine 05/10/22 Karlos Lyons MD [address] [place] [address] [email or web address] Insurance Assigned Provider 02/23/17 03/02/23 Omar Rocha MD [address] [place] [address] [email or web address] and [email or web address] 05/08/21 Sagar Leung MD [address] [place] [address], [address] [place] [address] [email or web address] Obstetrics and Gynecology 05/08/21 Yefri Hilliard MD [address] [place] [address] Endocrinology 05/08/21 Karlos Murry MD [address] [place] [address] [email or web address] Gastroenterology 02/27/22 Apple Talavera MD [address] [place] [address] [email or web address] Primary Oncologist Medical Oncology 02/19/23 Sergey Tyson MD [address] [place] [address] [email or web address] Insurance Assigned Provider 02/29/24 Mena Mcwilliams, RN 10 [place] [address] [email or web address] iCMP Development Chemist 11/13/23 12/11/23 documented as of this encounter Additional Source Comments The information contained in this document represents components of the legal health record. It is not the complete legal health record.[facility]
--- OUTSIDE RECORDS SUMMARY | 2025-08-20 11:18 | XMS_ITS | Encounter Summary ---
Author Organization [facility] Address [facility] [address] [place] [address] Phone Care Team Providers Care Bacteriology Professor Name Role Phone Omar Rocha MD Unavailable Sagar Leung MD Unavailable Yefri Hilliard MD Unavailable Karlos Murry MD Unavailable Sergey Tyson MD Primary Care Provider Apple Talavera MD Unavailable Sergey Tyson MD Unavailable Encounter Details Date Type Department Care Team (Latest Contact Info) Description 12/23/2024 Transcribe Orders Virtual Department [address] [place] [address] Omar Rocha MD [address] [place] [phone] [email or web address] Left hip pain (Primary Dx) Social History [...] Description 09/02/2025 9:30 AM EDT Office Visit [address] [address] Sergey Tyson MD [address] [place] [phone] Lorri Keenan [employer] SALES [employer]IST[employer] [address] [place] [phone] 09/09/2025 8:30 AM EDT Office Visit [address] [address] Sergey Tyson MD [address] [place] [phone] Lorri Keenan [employer] SALES ASSISTANT [address] [place] [phone] 09/16/2025 8:30 AM EDT Office Visit [address] [address] Sergey Tyson MD [address] [place] [address] Lorri Keenan [employer] SALES ASSISTANT [address] [place] [address] 09/23/2025 9:30 AM EDT Office Visit [address] [address] Sergey Tyson MD [address] [place] [phone] Lorri Keenan, [employer] SALES ASSISTANT [address] [place] [address] 10/01/2025 10:30 AM EST Office Visit [address] [address] Sergey Tyson MD [address] [place] [address] Lorri Keenan [employer]WARE SALES ASSISTANT [address] [place] [address] 10/08/2025 10:30 AM EST Office Visit [address] [address] Sergey Tyson MD [address] [place] [phone] Lorri Keenan [employer]WARE SALES ASSISTANT [address] [place] [phone] 10/11/2025 1:30 PM EST Office [place] [facility] [place] Allergy and Critical Care Medicine [address] [place] [phone] Rj Leiva MD [address] [place] [phone] [email or web address] 10/15/2025 10:30 AM EST Office Visit [address] [address] Sergey Tyson MD [address] [place] [phone] Lorri Keenan [employer] SALES ASSISTANT [address] [place] [address] 10/18/2025 8:30 AM EST Office Visit [facility] [address] [place] [address] Sergey Tyson MD [address] [place] [phone] Lorri Keenan [employer]WARE SALES ASSISTANT [address] [place] [address] 10/28/2025 9:30 AM EST Office Visit [facility] 8 [place] [address] Segrey Tyson MD [address] [place] [phone] Lorri Keenan [employer]WARE SALES ASSISTANT [address] [place] [address] 11/05/2025 10:30 AM EST Office Visit [facility] 8 [place] [address] Sergey Tyson MD [address] [place] [phone] Lorri Keenan [employer]WARE SALES ASSISTANT [address] [place] [address] 11/12/2025 10:30 AM EST Office Visit [facility] [address] [place] [address] Sergey Tyson MD [address] [place] [phone] Lorri Keenan [employer]HARDWARE SALES ASSISTANT [address] [place] [address] 11/19/2025 9:30 AM EST Office Visit [facility] [address] [place] [address] Sergey Tyson MD [address] [place] [address] Lorri Keenan [employer]WARE SALES ASSISTANT [address] [place] [address] 12/10/2025 2:45 PM EST Office Visit [facility] Gastroenterology [facility] [address] [place] [phone] Unknown, Unknown, MD Murry, Karlos Martines MD [address] [place] [address] 04/28/2026 8:00 AM EDT Office Visit [facility] Internal Medicine [address] [place] [address] Sergey Tyson MD [address] [place] [address] 05/20/2026 9:00 AM EDT Office Visit [facility] [address] [place] [address] Apple Talavera MD [address] [place] [phone] documented as of this encounter Results * [...] clinician's provided indication for this examination in [facility]: Outside Radiology Order; Pain in left [...] spine. Omar Rocha MD IMG XR PELVIS Final R esult [...] documented as of this encounter Care Teams Bacteriology Professor Relationship Specialty Start Date End Date Sergey Tyson MD [address] [place] [phone] [email or web address] PCP - General Internal Medicine 05/10/22 Omar Rocha MD [email or web address] Physical Medicine and Rehabilitation 05/08/21 Sagar Leung MD [address] [place] [address] [address] [place] [address] [email or web address] Obstetrics and Gynecology 05/08/21 Yefri Hilliard MD [address] [place] [address] Endocrinology 05/08/21 Karlos Murry MD [address] [place] [phone] [email or web address] Gastroenterology 02/27/22 Apple Talavera MD [address] [place] [phone] Primary Oncologist Medical Oncology 02/19/23 Sergey Tyson MD [address] [place] [phone] [email or web address] Insurance Assigned Provider 02/29/24 documented as of this encounter Additional Source Comments The information contained in this document represents components of the legal health record. It is not the complete legal health record.[facility]
--- OUTSIDE RECORDS SUMMARY | 2025-08-20 11:18 | XMS_ITS | Clinical Summary ---
Author Organization [facility] Address [facility] ADENTS [facility] [address] [place] [address] Phone Care Team Providers Care Air Bag Buffer Name Role Phone Omar Rocha MD Unavailable [phone] Sagar Leugn MD Unavailable Yefri Hilliard MD Unavailable Adan [...] states Tenormin (Atenolol) 04/10/2024 Other Reaction(s): depressed Tramadol Headaches 04/19/2021 Triamcinolone Acetonide Swelling High [...] IN THE DAYTIME NEEDED. 120 tablet 2 Active cholecalciferol (VITAMIN D3) 2,000 unit capsule Take 2,000 Units by mouth daily. Active carisoprodol (SOMA) 350 MG tablet TAKE 1 TAB 4 TIMES A DAY PARTIAL FILL PER PATIENT REQUEST MAY LEAD INFRASTRUCTURE ARCHITECT ON 02/14/2023 023 Active oxyCODONE HCl 10 mg TabIndications:ma naged by Dr. Rocha at [facility] Take 10 mg by mouth 4 (four) times a day. And take 2 tablets at bedtime. Indications: managed by Dr. Rocha at [facility] 023 Active fluticasone propionate (FLONASE) 50 mcg/actuation nasal sprayIndications: PND (post-nasal drip) spray 2 sprays into each nostril every day 48 mL 3 024 Active losartan (COZAAR) 100 MG tabletIndications :Hypertension TAKE 1 TABLET BY MOUTH EVERY DAY 90 tablet 3 025 Active levothyroxine (SYNTHROID, LEVOTHROID) 137 MCG tabletIndications :Postablative hypothyroidism TAKE 1 TABLET BY MOUTH EVERY MORNING. 90 tablet 3 025 Active albuterol 90 mcg/actuation inhalerIndication s:Pneumonia of right lower lobe due to infectious organism INHALE 2 PUFFS INTO THE LUNGS EVERY 6 HOURS NEEDED FOR WHEEZE 8 g 5 025 Active budesonide (ENTOCORT EC) 3 mg 24 hr capsule Take 3 mg by mouth every morning. 025 Active sodium chloride 3 % nebulizer solution Take 4 mL (120 mg total) by nebulization 2 (two) times a day. 240 mL 11 025 Active guaiFENesin (MUCINEX) 600 mg ER biphasic tablet Take 600 mg by mouth. 025 Active nizatidine (AXID) 150 MG capsule Take 1 capsule by mouth 2 (two) times a day. 025 Active ipratropium (ATROVENT) 21 mcg (0.03 %) nasal spray 2 sprays by Nasal route every 12 (twelve) hours. 30 mL 12 025 Active magnesium chloride (SLOW-MAG) 596 mg (71.5 mg elemental) TbEC Take 1 tablet (596 mg total) by mouth daily. 90 tablet 2 025 Active ipratropium (ATROVENT) 21 mcg (0.03 %) nasal spray 2 sprays by Nasal route every 12 (twelve) hours. 30 mL 12 025 2024 Discontinued(R eorder) magnesium chloride (SLOW-MAG) 596 mg (71.5 mg elemental) TbECIndications:L eg cramping Take 1 tablet (596 mg total) by mouth nightly at bedtime. 90 tablet 4 025 2024 Discontinued Active Problems Patient Care Coordination No te Formatting of this note migh t be different from the original. HEIGHT 166.4cm no shoes 02/27/23 Problem Noted Date Diagnosed Date Other age-related cataract 07/27/2025 Assessment & Plan (07/27/2025 10:49 AM EDT): The patient has a normal exam today. Lab work will include CBC Chem-7 TSH free T4. Patient's blood pressure stable. She may proceed to cataract surgery/glaucoma procedure without the need for further cardiovascular testing. Abnormal finding on imaging 05/06/2025 Chronic cough 05/06/2025 Assessment & Plan (07/27/2025 10:46 AM EDT): Chronic cough and the sensation of phlegm in the back of the throat, most likely due to postnasal drip. Patient will apply Nasonex to see if this helps 1 spray each nostril OTC. She is working together with her industrial energy engineer regarding her lung and upper respiratory symptoms. Right now there is no dangerous findings that would preclude her from the surgery. Assessment & Plan (05/06/2025 5:55 PM EDT): Chronic cough now with history of pneumonia and rales and rhonchi on exam. Could be aspiration with aspiration pneumonia in the past. Would like to repeat the chest CT and compare with previous. There is a pulmonary consult at the end of May scheduled. She will follow-up with GI. She will keep the appointment July 23 with me. Generalized abdominal pain 04/01/2025 Assessment & Plan (04/01/2025 11:19 AM EDT): She notes longstanding history of abdominal issues including left lower quadrant abdominal pain and right upper quadrant abdominal pain with occasional acid like sensations . She did have a CT abdomen pelvis which noted prominent common bile duct and questioning stricture of the center of Oddi. She has a follow-up with [facility] on Saturday. She is advised to maintain adequate hydration and to avoid foods high in fat to prevent exacerbation of pain. Discussed the possibility of an MRCP with GI. Pneumonia of both lower lobes due to infectious organism 03/26/2025 Assessment & Plan (04/13/2025 6:19 PM EDT): Will obtain chest CT at [facility] where the last 1 was done and compare the 2. Very low threshold to restart antibiotics. Because of the chronic nature now of this developing infiltrate and respiratory symptoms we will set up a pulmonology consultation, concerning for BOOP, persisting pneumonia or ILD. Assessment & Plan (04/01/2025 11:19 AM EDT): [...] she has had no recent antibiotic use. Leg cramping 09/28/2024 Assessment & Plan (07/27/2025 10:50 AM EDT): Slow-Mag was written for muscle cramping of the legs, to replace Mag-Ox which was causing diarrhea. This and tonic water could be beneficial in reducing leg cramping but also stay well-hydrated. Assessment & Plan (09/28/2024 10:43 AM EST): [...] Irritable bowel syndrome 10/09/2023 Assessment & Plan (04/13/2025 6:21 PM EDT): Patient being worked up for dysfunctional gallbladder but could also be pancreas insufficiency with the weight loss. This is also being what worked up by [facility] gastroenterology. Will follow but focus on today's visit on the lung findings to see if an antibiotic is becomes necessary. Will obtain a CT scan of the lungs, referral to pulmonology and consider restarting antibiotic depending on CT scan or development of respiratory symptoms. Assessment & Plan (10/09/2023 3:53 PM EST): [...] such lets set the patient up with [facility] orthopedics to reassess if that is [...] health care facility 01/28/2023 Assessment & Plan (04/13/2025 6:19 PM EDT): 2 issues going on in terms of weight loss with GI symptoms concerning for either gallbladder dysfunction versus pancreas insufficiency being worked up by [facility] with stool tests and a HIDA scan coming up this Saturday. Then the other issue is ongoing coughing, phlegm production, malaise with history of pneumonia, and after the visit markedly elevated CRP. Will obtain chest CT at [facility] where the last 1 was done and compare the 2. Very low threshold to restart antibiotics. Because of the chronic nature now of this developing infiltrate and respiratory symptoms we will set up a pulmonology consultation, concerning for BOOP, persisting pneumonia or ILD. Assessment & Plan (04/10/2024 10:47 AM EDT): [...] patient information given about kidney friendly diet vis- -vis kidney stones. Will obtain a urinalysis and Chem-7. The history of bone demineralization is seen on chest x-ray or other x-rays obtained, obtain a bone density scan and if positive for osteoporosis referral to rheumatology, patient in agreement. Will do the bone density scan at [facility]. In regards to night sweats and [...] its possible that would overtake this from [place] [facility] and sports but will cross that [...] and ADR Opted to recheck urine at [facility] lab due to [facility]'s protocol on sending out urine for [...] several adenomatous polyps. Vitamin D deficiency 12/01/2019 assisted current use of opiate analgesic 2018 Fasciculations 06/15/2019 Tinnitus of both ears 06/15/2019 Overview (06/15/2019): sensorineural hearing loss Postprandial nausea 06/15/2019 Allergic rhinitis 02/16/2019 Glaucoma 02/16/2019 Overview (02/16/2019): followed by Dr. Robles Personal history of breast cancer 12/31/2018 Vaginal atrophy 12/31/2018 Postablative hypothyroidism 08/13/2018 Assessment & Plan (07/27/2025 10:47 AM EDT): We have not reassessed thyroid levels in the past year. She continues on levothyroxine for hypothyroidism postablative. Will obtain a TSH free T4 and make adjustments if need be. Currently no overt signs of hypo or hyperthyroidism. Assessment & Plan (09/28/2024 10:42 AM EST): [...] recent thyroid function studies were done at [facility] and this can be found in the [...] without esophagi tis 01/07/2018 Assessment & Plan (07/27/2025 10:47 AM EDT): History H. pylori with 2 times treatment. Over the last 2 years no relapse of symptoms to suggest H. pylori recurrence. From the setting of the patient is cleared for the upcoming cataract surgery. Assessment & Plan (09/10/2022 3:21 PM EDT): [...] (05/08/2021): bilateral, Seen by Dr Sims at [facility] Assessment & Plan (09/28/2024 10:42 AM EST): [...] with mild pulmonary hypertension. Assessment & Plan (07/27/2025 10:45 AM EDT): Blood pressure is a little bit elevated however second measurement within target range, will maintain losartan at current dosing. Will check electrolytes kidney function today. From the standpoint of the patient's blood pressure she may proceed with the cataract surgery as planned. Assessment & Plan (10/30/2024 12:54 PM EST): [...] Encounters Date Type Department Care Team Description 08/05/2025 Orders Only [facility] Internal Medicine [address] [place] [address] Sergey Tyson MD 08/04/2025 2:28 PM EDT - 08/04/2025 11:59 PM EDT Hospital Encounter [facility] [address] [facility] [place] [address] Sergey Tyson MD Discharge Disposition: Home or Self Care 08/04/2025 Refill [facility] Internal Medicine [address] [facility] [place] [address] Sergey Tyson MD Med Change Request 08/04/2025 Telephone [facility] Rehabilitation Services [address] [place] [address] Sergey Tyson MD Request for updated speech order for patient coming 09/02/25 (Request for updated speech order for patient coming 09/02/25. Per Department policy, order is valid for 90 days. Thank you, Brittney Figueroa Patient Access Services Rehab Department. ) 07/29/2025 Telephone [facility] [address] [facility] [address] Sergey Tyson MD Results 07/27/2025 10:45 AM EDT - 07/27/2025 11:59 PM EDT Hospital Encounter [facility] [address] [place] [address] Sergey Tyson MD Discharge Disposition: Home or Self Care 07/27/2025 10:00 AM EDT Office Visit [facility] Internal Medicine [address] [place] [address] Sergey Tyson MD Other age-related cataract of both eyes (Primary Dx); Primary hypertension; Esophageal spasm; Leg cramping; Postablative hypothyroidism; Chronic cough; Gastroesophageal reflux disease without esophagitis 07/27/2025 Refill [facility] Pulmonary, Allergy and Critical Care Medicine [address] [place] [address] Wen Bess RN 07/19/2025 12:08 PM EDT - 07/19/2025 11:59 PM EDT Hospital Encounter [facility] [address] [place] [address] Rj Leiva MD Discharge Disposition: Home or Self Care 07/19/2025 11:27 AM EDT - 07/19/2025 12:07 PM EDT Hospital Encounter [facility], X-Ray - [address] [address] Rj Leiva MD Discharge Disposition: Home or Self Care 07/14/2025 Orders Only [facility] Internal Medicine [address] [place] [address] ProviderAvelino MD 07/01/2025 Ancillary Orders [facility],Outside Imaging [address] [place] [address] Huey, Huey, 06/25/2025 Telephone [facility], Allergy [facility] Critical [facility] [address] [place] [address] Rj Leiva MD Medication Problem (sodium chloride 3 % nebulizer solution ) 06/24/2025 3:00 PM EDT Office Visit [facility] Pulmonary, Allergy and Critical Care Medicine [address] [place] [address] Rj Leiva MD Pneumonia of both lower lobes due to infectious organism (Primary Dx); Aspiration into lower respiratory tract, sequela; Dysphagia, unspecified type 06/10/2025 8:32 AM EDT - 06/10/2025 11:59 PM EDT Hospital Encounter [address] [address] Apple Talavera MD Discharge Disposition: Home or Self Care 06/10/2025 8:32 AM EDT - 06/10/2025 11:59 PM EDT Hospital Encounter [address] [address] Apple Talavera MD Discharge Disposition: Home or Self Care 05/26/2025 Orders Only [facility] Internal Medicine [address] [place] [address] ProviderAvelino MD 05/24/2025 Ancillary Orders [facility],Outside Imaging [address] [place] [address] Unknown, Huey, 05/22/2025 - 05/22/2025 11:59 PM EDT Hospital Encounter [facility],Outside Imaging [address] [place] [address] Unknown, MD Huey Discharge Disposition: Home or Self Care 05/12/2025 Procedure Pass [address] [address] from Last 3 Months Immunizations Immunization Administration Dates Next Due COVID-19 (Pre-09/16) Pfizer Vaccine, mRNA, PF 02/21/2021,01/31/2021 COVID-19, Unspecified Formulation 11/07/2022 [id number] FORMULATION 10/07/2009 INFLUENZA, SPLIT VIRUS, TRIVALENT PF 10/20/2016 Influenza Quadrivalent MDCK Preservative Free IM 08/30/2022,08/26/2019,09/13/2017 Influenza Quadrivalent Prese rvative Free IM 09/08/2023,09/06/2021,08/09/2020 Influenza Quadrivalent w/ Pr eservative IM 09/13/2018 Influenza Trivalent MDCK Pre servative Free IM 10/28/2024 Influenza, Unspecified Formulation 08/03,09/25/2010,08/31/2009,09/22,09/04/2007,10/11/2006,09/25/2005 ,09/30/2003 Pneumococcal conjugate PCV13 01/26/2016 Pneumococcal polysaccharide PPSV23 03/18/2017 Tdap 06/15/2013 Zoster live 08/18/2012 Family History Medical History Relation Comments Coronary artery disease Brother 1 Heart failure Brother 1 cigarette smoker Stroke Brother 2 Polycystic kidney disease Child 1 from sree heir father Polycystic kidney disease Child 2 from sree heir father, also had a renal transplant Thyroid disease Daughter Prostate cancer Maternal Grandfather Hypertension Maternal Grandmother Migraines Maternal Grandmother Stroke Maternal Grandmother Anesthesia problems Mother Coma Diabetes mellitus Mother Heart attack Mother smoker [...] 0 11/25/1963 - 1970 Smokeless Tobacco: Never Tobacco Cessation:Counseling [...] housing situation today? I have yun sparks 04/07/2025 How many times have you move [...] Sign Reading Time Taken Comments Blood Pressure 138/80 07/27/2025 10:35 AM EDT Pulse 78 07/27/2025 9:58 AM EDT Temperature 36.4 C (97.5 F) 07/27/2025 9:58 AM EDT Respiratory Rate 12 07/27/2025 9:58 AM EDT Oxygen Saturation 98% 07/27/2025 9:58 AM EDT Inhaled Oxygen Concentration - - Weight 52 kg (114 lb 9.6 oz) 07/27/2025 9:58 AM EDT Height 165.7 cm (5' 5.24 ) 07/27/2025 9:58 AM ED T Body Mass Index 18.93 07/27/2025 9:58 AM EDT Plan of Treatment Upcoming Encounters Date Type Department Care Team (Late st Contact Info) Description 09/02/2025 9:30 AM EDT Office Visit [facility] [address] [place] [address] Sergey Tyson MD [address] [place] [phone] Lorri Keenan CCC-CHECK EXAMINER [address] [place] [address] 09/09/2025 8:30 AM EDT Office Visit [facility] [address] [place] [address] Sergey Tyson MD [address] [place] [phone] Lorri Keenan CCC-CHECK EXAMINER [address] [place] [address] 09/16/2025 8:30 AM EDT Office Visit [facility] [address] [place] [address] Sergey Tyson MD [address] [place] [phone] Lorri Keenan CCC-CHECK EXAMINER [address] [place] [address] 09/23/2025 9:30 AM EDT Office Visit [facility] [address] [place] [address] Sergey Tyson MD [address] [place] [phone] Lorri Keenan CCC-CHECK EXAMINER [address] [place] [phone] 10/01/2025 10:30 AM EST Office Visit [facility] [address] [place] [address] Sergey Tyson MD [address] [place] [phone] Lorri Keenan CCC-CHECK EXAMINER [address] [place] [address] 10/08/2025 10:30 AM EST Office Visit [address] [address] Sergey Tyson MD [address] [place] [address] Lorri Keenan CCC-CHECK EXAMINER [address] [place] [address] 10/11/2025 1:30 PM EST Office Visit [facility], Allergy and Critical Care Medicine [address] [place] [address] Rj Leiva MD [address] [place] [address] josé 10/15/2025 10:30 AM EST Office Visit [address] [address] Sergey Tyson MD [address] [place] [address] Lorri Keenan CCC-CHECK EXAMINER [address] [place] [address] 10/18/2025 8:30 AM EST Office Visit [facility] [address] [place] [address] Sergey Tyson MD [address] [place] [phone] Lorri Keenan CCC-CHECK EXAMINER [address] [place] [address] 10/28/2025 9:30 AM EST Office Visit [address] [address] Sergey Tyson MD [address] [place] [phone] Lorri Keenan CCC-CHECK EXAMINER [address] [place] [address] 11/05/2025 10:30 AM EST Office Visit [address] [address] Sergey Tyson MD [address] [place] [phone] Lorri Keenan CCC-CHECK EXAMINER [address] [place] [address] 11/12/2025 10:30 AM EST Office Visit [facility] [address] [place] [address] Sergey Tyson MD [address] [place] [phone] Lorri Keenan CCC-CHECK EXAMINER [address] [place] [address] 11/19/2025 9:30 AM EST Office Visit [facility] Rehabilitation Services [address] [place] [address] Sergey Tyson MD [address] [place] [address] Lorri Keenan, CCC-CHECK EXAMINER [address] [place] [address] 12/10/2025 2:45 PM EST Office Visit [facility] [address] [place] [address] Unknown, Unknown, MD Hoffman, Adan Martines MD [address] [address] 04/28/2026 8:00 AM EDT Office Visit [facility] Medical [facility] Internal Medicine [address] [place] [address] Sergey Tyson MD [address] [place] [address] 05/20/2026 9:00 AM EDT Office Visit [facility] [address] [place] [address] Apple Talavera MD [address] [place] [phone] Health Maintenance Due Date Last Done Comments COLOGUARD 1995 FOBT 1995 SIGMOIDOSCOPY 1995 VIRTUAL COLONOSCOPY 1995 ZOSTER VACCINES (1 of 2) 10/13/2012 08/18/2012 Adult Td,Tdap Booster 06/15/2023 06/15/2013 FIT TEST 03/04/2025 03/04/2024 RSV VACCINE (1 - 1-dose 75+ series) 2025 INFLUENZA VACCINE (#1) 2025 , 09/08/2023, 09/08/2023, Additional history exists COVID-19 VACCINE (2024- season) 2025 08/24/2023, 11/07/2022, 11/07/2022, Additional history exists BLOOD PRESSURE 01/24/2026 07/27/2025 DEPRESSION SCREENING 04/07/2026 04/07/2025, 09/11/20 LIPID PANEL 05/11/2026 05/11/2021, 05/11/2021 CREATININE LEVEL 07/27/2026 07/27/2025, 04/2024, 09/28/2024, Additional history exists POTASSIUM LEVEL 07/27/2026 07/27/2025, 12/04/2024, 09/28/2024, Additional history exists TSH LEVEL 07/27/2026 07/27/2025, 11/0 02/2024, 04/10/2024, Additional history exists COLONOSCOPY 09/13/2032 09/13/2022, 04/20/2021 COLORECTAL CANCER SCREENING 09/13/2032 PNEUMOCOCCAL VACCINES (50+ years) Completed 03/18/2017, 01/26/2016 HEPATITIS C SCREENING Completed 05/11/2021, 021 OSTEOPOROSIS SCREENING INITIAL (ONE-TIME) Completed 05/02/2024, 01/29/2020, 02/08/2016 SMOKING STATUS SCREENING (Once After 26 Yrs) Completed 07/27/2025 HEPATITIS A VACCINES Aged Out No long [...] this topic Medical Devices Implanted Type Area Ambulance Assistant Device Identifier Shelf Expiration Date Model / Serial / Lot [id number] Screws Left Breast Silicone Implant Left Middle And Ring Finger Joint Replacemtents Cervical C5,6,7 Fusion And L5-S1 Procedures Procedure Name Priority Date/Time Associated Diagnosis Comments CBC AND DIFFERENTIAL Routine 08/04/2025 2:23 PM EDT Macrocytosis FOLATE Routine 08/04/2025 2:23 PM EDT Macrocytosis VITAMIN B12 Routine 08/04/2025 2:23 PM EDT Macrocytosis LFTS (HEPATIC PANEL) Routine 08/04/2025 2:23 PM EDT Macrocytosis CBC Routine 07/27/2025 10:45 AM EDT Other age-related cataract of both eyes TSH WITH REFLEX Routine 07/27/2025 10:45 AM EDT Postablative hypothyroidism BASIC METABOLIC PANEL Routine 07/27/2025 10:45 AM EDT Primary hypertension PULMONARY FUNCTION TEST Routine 07/19/2025 1:59 PM EDT Pneumonia of both lower lobes due to infectious organism FL (SPEECH) VIDEO SWALLOW STUDY Routine 07/19/2025 12:51 PM EDT Pneumonia of both lower lobes due to infectious organism Aspiration into lower respiratory tract, sequela Dysphagia, unspecified type OUTSIDE US ABDOMEN REPORT ONLY Routine 07/13/2025 6:56 AM EDT BI US BREAST LIMITED (RIGHT) Routine 06/10/2025 9:49 AM EDT Abnormal mammogram BI MAMMOGRAM DIAGNOSTIC WITH TOMOSYNTHESIS WITH CAD (RIGHT) Routine 06/10/2025 9:02 AM EDT Abnormal mammogram OUTSIDE IMAGING Routine 05/22/2025 1:[address] CHEST OUTSIDE (NO INTERPRETATION) Routine 05/22/2025 12:00 AM EDT BD DXA MONITORING Routine 05/02/2024 10: 14 [...] Recently Relevant to Health Maintenance Results * LFTs (hepatic panel) (08/04/2025 2:23 PM EDT) ALKALINE PHOSPHATASE 85 39 - 117 U/L [facility] TOTAL BILIRUBIN <0.2 0.0 - 1.2 mg/dL [facility] DIRECT BILIRUBIN <0.1 0.0 - 0.2 mg/dL [facility] Bilirubin (Indirect) NOT CALCULATED 0 - 1.5 mg/dL [facility] AST 23 0 - 37 U/L [facility] ALT 12 0 - 40 U/L [facility] TOTAL PROTEIN 7.1 6.5 - 8.0 g/dL [facility] ALBUMIN 4.2 3.9 - 4.8 g/dL [facility] GLOBULIN 2.9 1 - 4.8 g/dL [facility] A/G Ratio 1.45 1.00 - 4.80 RATIO [facility] Blood 08/04/2025 2:23 PM EDT 08/04/2025 2:27 PM EDT us Sergey Tyson MD LAB BLOOD ORDERABLES Final Resul t [facility] [address] [place] [address] * (ABNORMAL) CBC and differential (08/04/2025 2:23 PM EDT) WBC 5.44 4.00 - 11.00 K/uL [facility] RBC 4.25 4.00 - 5.20 M/uL [facility] HGB 14.0 12.0 - 16.0 g/dL [facility] HCT 43.3 36.0 - 46.0 % [facility] PLT 266 150 - 450 K/uL [facility] MCV 101.9(H) 80.0 - 100.0 fL [facility] MCH 32.9(H) 27.0 - 31.0 pg [facility] MCHC 32.3 32.0 - 36.0 g/dL [facility] RDW 11.8 11.5 - 14.5 % [facility] MPV 9.6 8.4 - 12.0 fL [facility] NRBC 0.00 0.00 /100 WBCs [facility] ABSOLUTE NRBC 0.00 0.00 K/uL [facility] DIFF METHOD Auto [facility] NEUTS 71.0 48.0 - 76.0 % [facility] LYMPHS 19.7 18.0 - 41.0 % [facility] MONOS 6.4 4.0 - 11.0 % [facility] EOS 1.8 0.0 - 5.0 % [facility] BASOS 0.9 0.0 - 1.5 % [facility] Granulocytes, immature (%) 0.2 0.0 - 0.9 % [facility] ABSOLUTE NEUTS 3.86 1.92 - 7.60 K/uL [facility] ABSOLUTE LYMPHS 1.07 0.72 - 4.10 K/uL [facility] ABSOLUTE MONOS 0.35 0.16 - 1.10 K/uL [facility] ABSOLUTE EOS 0.10 0.00 - 0.50 K/uL [facility] ABSOLUTE BASOS 0.05 0.00 - 0.15 K/uL [facility] Granulocytes, immature 0.01 0.00 - 0.09 K/uL [facility] Blood 08/04/2025 2:23 PM EDT 08/04/2025 2:27 PM EDT us Sergey Tyson MD LAB BLOOD ORDERABLES Final Resul t [facility] [address] [place] [address] * Folate (08/04/2025 2:23 PM EDT) Pathologist [facility] FOLIC ACID 6.4 4.2 - 19.9 ng/mL [facility] Blood 08/04/2025 2:23 PM EDT 08/04/2025 2:27 PM EDT us Sergey Tyson MD LAB BLOOD ORDERABLES Final Resul t [address] [address] * Vitamin B12 (08/04/2025 2:23 PM EDT) Pathologist [facility] VITAMIN B12 920 232 - 1,245 pg/mL [facility] Blood 08/04/2025 2:23 PM EDT 08/04/2025 2:27 PM EDT us Sergey Tyson MD LAB BLOOD ORDERABLES Final Resul t Performing Organization Address City/[facility]/ZIP Co de Phone Number [address] [address] * TSH with reflex (07/27/2025 10:45 AM EDT) Pathologist [facility] TSH 1.17 0.27 - 4.20 uIU/mL [facility] Blood 07/27/2025 10:4 5 AM EDT 07/27/2025 10:47 AM EDT us Sergey Tyson MD LAB BLOOD ORDERABLES Final Resul t Performing Organization Address City/[facility]/ZIP Co de Phone Number [address] [address] * (ABNORMAL) CBC (07/27/2025 10:45 AM EDT) Pathologist [facility] WBC 4.46 4.00 - 11.00 K/uL [facility] RBC 4.35 4.00 - 5.20 M/uL [facility] HGB 14.6 12.0 - 16.0 g/dL [facility] HCT 44.9 36.0 - 46.0 % [facility] PLT 255 150 - 450 K/uL [facility] MCV 103.2(H) 80.0 - 100.0 fL [facility] MCH 33.6(H) 27.0 - 31.0 pg [facility] MCHC 32.5 32.0 - 36.0 g/dL [facility] RDW 11.6 11.5 - 14.5 % [facility] MPV 9.7 8.4 - 12.0 fL [facility] NRBC 0.00 0.00 /100 WBCs [facility] ABSOLUTE NRBC 0.00 0.00 K/uL [facility] Blood 07/27/2025 10:4 5 AM EDT 07/27/2025 10:47 AM EDT us Sergey Tyson MD LAB BLOOD ORDERABLES Final Resul t Performing Organization Address City/State/[facility] Co de Phone Number [address] [address] * (ABNORMAL) Basic metabolic panel (07/27/2025 10:45 AM EDT) SODIUM 137 133 - 146 mmol/L [facility] CHLORIDE 100 96 - 108 mmol/L [facility] POTASSIUM 4.3 3.3 - 5.1 mmol/L [facility] CO2 28 21 - 35 mmol/L [facility] BUN 20(H) 6 - 19 mg/dL [facility] CREATININE 0.90 0.5 - 1.5 mg/dL [facility] GLUCOSE 93 70 - 99 mg/dL [facility] CALCIUM 9.5 8.4 - 10.3 mg/dL [facility] EGFR 67 >59 mL/min/1.7 3m2 [facility] Comment:Estimated glomerular filtration rate calculated using the CKD-EPI refit equation. ANION GAP 13 10 - 20 mmol/L [facility] Blood 07/27/2025 10:4 5 AM EDT 07/27/2025 10:47 AM EDT us Sergey Tyson MD LAB BLOOD ORDERABLES Final Resul t [facility] [address] [place] [address] * Pulmonary Function Test Reason for Exam: COPD; Type of PFT Test: Spirometry with bronchodilator, DLCO, Lung Volumes; Performing Location: [facility] (07/19/2025 1:59 PM EDT) FEV1 2.32 liters FVC 3.40 liters FEV1/FVC 68 % TLC 5.48 liters DLCO 14.15 ml/mmHg sec Anatomical Region Laterality Modality Other Impressions 07/19/2025 1:59 PM EDT PULMONARY FUNCTION STUDIES Full pulmonary function studies were performed on this 75 y.o. year-old female for evaluation of pneumonia. Review of the medical record reveals that the patient is a past smoker. Prior pulmonary function studies are not available for comparison. SPIROMETRY: The FEV1 is normal at 2.32 L or 106% predicted. The FVC is normal at 3.40 L or 119% predicted. The FEV1/FVC ratio is normal at 68%. After the administration of a bronchodilator agent, there is no technically significant change. FLOW-VOLUME LOOPS: Evaluation of the flow-volume loops reveals normal morphology of both the inspiratory and expiratory limbs with no significant difference when comparing the tracings performed pre- and post-bronchodilator. LUNG VOLUME MEASUREMENTS BY PLETHYSMOGRAPHY: The total lung capacity is normal at 5.48 L or 104% predicted. The RV/TLC ratio is normal at 38%. DIFFUSION CAPACITY: The diffusion capacity is mildly impaired (z-score between - 1.65 and -2.5) at 14.2 mL/mmHg sec or 72% predicted. Resting oxygen saturation is 95% on room air. IMPRESSION: Abnormal pulmonary function studies as evidenced by an isolated mild impairment in diffusion capacity which, in this clinical context, may be secondary to emphysema, pulmonary vascular disease, interstitial lung disease and/or anemia. Lung volumes are normal. Spirometry reveals no evidence of airflow limitation and no bronchodilator response. 6-MINUTE DISTANCE WALK A standard 6-minute distance walk was performed according to ATS criteria with the patient breathing room air. At rest, the oxygen saturation was 96% with a heart rate of 96 bpm and a respiratory dyspnea index of 0 on a scale from 0 to 10. During ambulation, the oxygen saturation reached a ally of 93%, the heart rate increased physiologically to a maximum of 127 bpm and the respiratory dyspnea index reached a maximum of 0. After one minute of recovery, the oxygen saturation was 95%, the hear rate was 98 bpm and the respiratory dyspnea index was 0. The patient ambulated 1490 feet or 454 meters, which is mildly impaired. The patient endorsed leg cramps during the study. IMPRESSION: Abnormal 6-minute distance walk study as evidenced by a mildly impaired walk distance, ambulatory desaturations down to 93% on room air, a physiologic increase in heart rate with exercise and an increase in the respiratory dyspnea index with exercise. Technical Note: As of 10/06/2024, the [facility] Pulmonary Function Testing (PFT) Laboratory transitioned from using race-specific to using race-neutral equations for determining lung function predicted values for all persons. Due to this change some individuals previously classified as either normal or abnormal may now change from one to the other category without a true change in lung function. Such changes, as well as changes in severity classification, should be considered broadly and in their clinical context. Absolute values of lung function are unaffected. For further questions please contact the interpreting physician or PFT geophysical laboratory chief. For further discussion of this issue please see Ayana et al [facility] 2022;[phone]. Please Note: Not all PFT labs within, or outside of, our system will be transitioning to new reference equations at the same time. For this reason, please pay close attention to absolute values when comparing results done at different testing locations within or outside of our system. Rj Leiva MD PFT ORDERABLES Final Result * FL (Speech) Video Swallow Study (07/19/2025 12:51 PM EDT) Anatomical Region Laterality Modality Radio Fluoroscop y 07/19/2025 2:12 PM EDT Impressions 07/19/2025 3:47 PM EDT No august aspiration was observed during this examination. Laryngeal penetration with thin liquids. Please refer to the clinical notes by the Speech Pathologist for detailed description of the Modified Swallow findings. FLUOROSCOPY TIME: 3 minutes 41 seconds The examination was performed by Vance TOBAR. Dr. Aishwarya Plaza was immediately available for portions of the procedure as needed. ATTESTATION: I, Aishwarya Plaza as teaching physician, have reviewed the images for this case and if necessary edited the report originally created by Vance Jordan. Narrative 07/19/2025 3:47 PM EDT FL MODIFIED BARIUM SWALLOW HISTORY:Aspiration. Dysphagia. COMPARISON:FL upper GI series 12/02/2024. TECHNIQUE: Fluoroscopic assistance was provided for the speech pathologist during video swallow. The patient was observed in the lateral projection while being fed various consistencies of barium (thin liquids, applesauce, pudding and cracker). FINDINGS: The oral and pharyngeal stages of swallowing will be reported separately by the Department of Speech and Language Pathology. Fluoroscopic examination demonstrated laryngeal penetration with thin liquids without august aspiration. All other trialed barium consistencies passed through the pharynx or difficulty. Nontargeted assessment of the distal esophagus demonstrates mild dysmotility with associated tertiary contractions. Findings are consistent with prior study 12/02/2024. Procedure Note Aishwarya Plaza MD - 07/19/2025 RI MODIFIED BARIUM SWALLOW HISTORY:Aspiration. Dysphagia. COMPARISON:RI upper GI series 12/02/2024. TECHNIQUE: Fluoroscopic assistance was provided for the speech pathologist duringvideo swallow. The patient was observed in the lateral projection whilebeing fed various consistencies of barium (thin liquids, applesauce,pudding and cracker). FINDINGS: The oral and pharyngeal stages of swallowing will be reported separatelyby the Department of Speech and Language Pathology. Fluoroscopic examination demonstrated laryngeal penetration with thinliquids without august aspiration. All other trialed barium consistenciespassed through the pharynx or difficulty. Nontargeted assessment of thedistal esophagus demonstrates mild dysmotility with associated tertiarycontractions. Findings are consistent with prior study 12/02/2024. IMPRESSION: No august aspiration was observed during this examination. Laryngealpenetration with thin liquids. Please refer to the clinical notes by the Speech Pathologist for detaileddescription of the Modified Swallow findings. FLUOROSCOPY TIME: 3 minutes 41 seconds The examination was performed by Vance TOBAR. Dr. Aishwarya Plaza wasimmediately available for portions of the procedure as needed. ATTESTATION: I, Aishwarya Plaza as teaching physician, have reviewed theimages for this case and if necessary edited the report originally createdby Vance Jordan. us Rj Leiva MD IMG FL EXAMS Final Result * Outside US Abdomen Report Only (07/13/2025 6:56 AM EDT) us Historical Provider MD BONDS US ABDOMEN Final Res ult * BI US BREAST LIMITED (RIGHT) (06/10/2025 9:49 AM EDT) Anatomical Region Laterality Modality Breast Right, Breast Bilateral Right U ltrasound 06/10/2025 9:20 AM EDT Impressions 06/10/2025 9:51 AM EDT No imaging findings suspicious for malignancy. Bilateral screening mammography recommended in one year. BI-RADS 2 BENIGN Results and recommendations were communicated to the patient at time of examination. Narrative 06/10/2025 9:51 AM EDT BI MAMMOGRAM DIAGNOSTIC WITH TOMOSYNTHESIS WITH CAD (RIGHT), BI US BREAST LIMITED (RIGHT) Additional patient information: COMPARISON: Comparison is made with relevant prior imaging. Breast composition: The breasts are heterogeneously dense, which may obscure small masses. FINDINGS: Right Mammogram: The asymmetry in the anterior inner right breast on screening CC view of 05/10/2025 does not appear to persist on additional mammographic views. Right Ultrasound: Targeted ultrasound was performed of the inner aspect. There is no sonographic abnormality. The asymmetry is consistent with superimposed benign fibroglandular tissue. us Apple Talavera MD IMG US BREAST Final Result * BI MAMMOGRAM DIAGNOSTIC WITH TOMOSYNTHESIS WITH CAD (RIGHT) (06/10/2025 9:02 AM EDT) Anatomical Region Laterality Modality Breast Right, Breast Bilateral Right M ammography 06/10/2025 9:20 AM EDT Impressions 06/10/2025 9:51 AM EDT No imaging findings suspicious for malignancy. Bilateral screening mammography recommended in one year. BI-RADS 2 BENIGN Results and recommendations were communicated to the patient at time of examination. Narrative 06/10/2025 9:51 AM EDT BI MAMMOGRAM DIAGNOSTIC WITH TOMOSYNTHESIS WITH CAD (RIGHT), BI US BREAST LIMITED (RIGHT) Additional patient information: COMPARISON: Comparison is made with relevant prior imaging. Breast composition: The breasts are heterogeneously dense, which may obscure small masses. FINDINGS: Right Mammogram: The asymmetry in the anterior inner right breast on screening CC view of 05/10/2025 does not appear to persist on additional mammographic views. Right Ultrasound: Targeted ultrasound was performed of the inner aspect. There is no sonographic abnormality. The asymmetry is consistent with superimposed benign fibroglandular tissue. Procedure Note Hammad Anders MD - 06/10/2025 BI MAMMOGRAM DIAGNOSTIC WITH TOMOSYNTHESIS WITH CAD (RIGHT), BI US BREASTLIMITED (RIGHT) Additional patient information: COMPARISON: Comparison is made with relevant prior imaging. Breast composition: The breasts are heterogeneously dense, which mayobscure small masses. FINDINGS: Right Mammogram: The asymmetry in the anterior inner right breast on screening CC view of05/10/2025 does not appear to persist on additional mammographic views. Right Ultrasound: Targeted ultrasound was performed of the inner aspect.There is no sonographic abnormality. The asymmetry is consistent withsuperimposed benign fibroglandular tissue. IMPRESSION: No imaging findings suspicious for malignancy. Bilateral screeningmammography recommended in one year. BI-RADS 2 BENIGN Results and recommendations were communicated to the patient at time ofexamination. us Apple LAWSONG MG EXAMS Final Result * Outside Imaging Report Only (05/22/2025 1:19 PM EDT) us Historical Provider MD BONDS XR CHEST Final Res ult * CT Chest Outside (No Interpretation) (05/22/2025 12:00 AM EDT) Narrative SYSTEMGENERATED, DOCUMENTATION - 07/01/2025 3:04 PM EDT This study is for PACS storage only and not for interpretation. us Unknown Unknown MD BONDS OUTSIDE IMAGING W/OUT INT ERPRETATION Final Result * DXA Monitoring (05/02/2024 10:14 AM EDT) Anatomical Region Laterality Modality Bone Density Bone Density us Sergey Tyson MD IMG BD BONE DENSITY DEXA Final R esult * Fecal immunochemical test x1 (FIT) (03/04/2024 9:15 PM EDT) Immuno Fecal Occult Negative Negative [facility] Stool (Stool) 03/04/2024 9:1 5 PM EDT 03/06/2024 10:00 AM EDT us Adan Hoffman MD BODY FLUIDS AND STOOLS ORD ERABLES Final Result [address] [address] * ENDOSCOPY, COLON (09/13/2022 11:58 AM EDT) Narrative Transcriptions Adan Hoffman MD - 09/13/2022 11:58 AM EDT Patient Name: Kaylyn Babak Alegria MD:: ADAN HOFFMAN MD Procedure Date: 09/13/2022 11:58AM Date of : 1950 Age: 72 Admit Type: Outpatient Gender: Female Room: [facility] 04 Referring MD: Sergey Tyson MD Exam [...] 11:58 AM Procedure Code(s): --- Professional --- 07079, Colonoscopy, flexible; with removal of tumor(s), polyp(s), or other lesion(s) by snare technique 24507, 59, Colonoscopy, flexible; with biopsy, single or multiple --- Technical --- 32569, Colonoscopy, flexible; with removal of tumor(s), polyp(s), or other lesion(s) by snare technique 08901, 59, Colonoscopy, flexible; with biopsy, single or multiple Diagnosis Code(s): --- Professional --- K63.5, Polyp of colon Z86.010, Personal history of colonic polyps K64.9, Unspecified hemorrhoids Q43.8, Other specified congenital malformations of intestine --- Technical --- K63.5, Polyp of colon Z86.010, Personal history of colonic polyps K64.9, Unspecified hemorrhoids Q43.8, Other specified congenital malformations of intestine CPT copyright 2020 [employer]. All rights reserved. The codes documented in this report are preliminary and upon energy efficiency engineer reviewmay be revised to meet current compliance requirements. Procedure Date: 09/13/2022 11:58:[address] [place] [address] us Sergey Tyson MD GI PROCEDURE ORDERABLES Final Re sult * Hepatitis C antibody, qualitative (05/11/2021 9:13 AM EDT) HCV NON-REACTIV E NON-REACTI VE [facility] Blood 05/11/2021 9:13 AM EDT 05/11/2021 9:19 AM EDT Adan Lyons MD LAB BLOOD ORDERABLES Final Result Performing Organization Address City/[facility]/ZIP Co de Phone Number [address] [address] * (ABNORMAL) Lipid panel (05/11/2021 9:13 AM EDT) HDL 68 mg/dL [facility] Comment: Interpretation <40 mg/dL: Low HDL cholesterol (major risk factor for CHD) Greater than or equal to 60 mg/dL: High HDL cholesterol ( negative risk factor for CHD) HDL - cholesterol is affected by a number of factors, e.g. smoking, excerise, hormones, sex and age. CHOLESTEROL 217 0 - 240 mg/dL [facility] TRIGLYCERIDES 113 30 - 160 mg/dL [facility] LDL 126 50 - 129 mg/dL [facility] Comment: LDL levels in terms of risk for coronary heart disease: <100 mg/dL: Optimal 100-129 mg/dL: Near or above optimal 130-159 mg/dL: Borderline high 160-189 mg/dL: High >190 mg/dL: Very High CARDIAC RISK RATIO 3.2(L) 3.3 - 4.4 C [facility] Blood 05/11/2021 9:13 AM EDT 05/11/2021 9:19 AM EDT us Adan Lyons MD LAB BLOOD ORDERABLES Final Result Performing Organization Address City/[facility]/ZIP Co de Phone Number [address] [address] from Last 3 Months or Most Recently Relevant to Health Maintenance Insurance [facility] MED[facility] PART [facility] & [facility] & [facility] & [facility] & [facility] & [facility] PART [facility] & [facility] PART A & [facility] PART A & [facility] MED[facility] PART A & [place] [id number] [facility] FEDERAL [facility] FEDERAL Care Teams Air Bag Buffer Relationship Specialty Start Date End Date Sergey Tyson MD [address] [place] [address] [email or web address] PCP - General Internal Medicine 05/10/22 Omar Rocha MD [email or web address] Physical Medicine and Rehabilitation 05/08/21 Sagar Leung MD [address] [place] [address], [address] [place] [address] [email or web address] Obstetrics and Gynecology 05/08/21 Yefri Hilliard MD [address] [place] [address] Endocrinology 05/08/21 Adan Hoffman MD [address] [place] [address] [email or web address] Gastroenterology 02/27/22 Apple Talavera MD [address] [place] [phone] [email or web address] Primary Oncologist Medical Oncology 02/19/23 Sergey Tyson MD [address] [place] [address] [email or web address] Insurance Assigned Provider 02/29/24 Additional Source Comments The information contained in this document represents components of the legal health record. It is not the complete legal health record.[facility]
--- OUTSIDE RECORDS SUMMARY | 2025-08-20 11:18 | XMS_ITS | Encounter Summary ---
Author Organization [facility] Address [facility] [address] [place] [address] Phone Care Team Providers Care Intelligence Research Specialist Name Role Phone Omar Rocha MD Unavailable Sagar Leung MD Unavailable Yefri Hilliard MD Unavailable Karlos Murry MD Unavailable [phone] Sergey Tyson MD Primary Care Provider Apple Talavera MD Unavailable [phone] Sergey Tyson MD Unavailable Encounter Details Date Type Department Care Team (Late st Contact Info) Description 10/30/2024 Procedure Pass [facility], Ct Scan - [address] [address] Social History Tobacco Use Types Packs/Day Years [...] high school, GED, job training, learning the [place]ian language, technical skills, or developing parenting skills)? [...] Description 09/02/2025 9:30 AM EDT Office Visit [facility] [address] [place] [address] Sergey Tyson MD [address] [place] [address] Lorri Keenan CCC-MAILING MACHINE ASSISTANT [address] [place] [address] 09/09/2025 8:30 AM EDT Office Visit [address] [place] [address] Sergey Tyson MD [address] [place] [address] [email or web address] Lorri Keenan CCC-MAILING MACHINE ASSISTANT [address] [place] [address] 09/16/2025 8:30 AM EDT Office Visit [facility] [address] [place] [address] Sergey Tyson MD [address] [place] [address] [email or web address] Lorri Keenan CCC-MAILING MACHINE ASSISTANT [address] [place] [address] 09/23/2025 9:30 AM EDT Office Visit [facility] [address] [place] [address] Sergey Tyson MD [address] [place] [address] [email or web address] Lorri Keenan CCC-MAILING MACHINE ASSISTANT [address] [place] [address] 10/01/2025 10:30 AM EST Office Visit [facility] [address] [place] [address] Sergey Tyson MD [address] [place] [address] Lorri Keenan CCC-MAILING MACHINE ASSISTANT [address] [place] [address] 10/08/2025 10:30 AM EST Office Visit [facility] [address] [place] [address] Sergey Tyson MD [address] [place] [address] Lorri Keenan CCC-MAILING MACHINE ASSISTANT [address] [place] [address] 10/11/2025 1:30 PM EST Office Visit [facility] Pulmonary, Allergy and Critical Care Medicine [address] [place] [address] Rj Leiva MD [address] [place] [address] [email or web address] 10/15/2025 10:30 AM EST Office Visit [facility] [address] [place] [address] Sergey Tyson MD [address] [place] [address] Lorri Keenan CCC-MAILING MACHINE ASSISTANT [address] [place] [address] 10/18/2025 8:30 AM EST Office Visit [facility] [address] [place] [address] Sergey Tyson MD [address] [place] [address] Lorri Keenan CCC-MAILING MACHINE ASSISTANT [address] [place] [address] 10/28/2025 9:30 AM EST Office Visit [facility] [address] [place] [address] Sergey Tyson MD [address] [place] [address] Lorri Keenan CCC-MAILING MACHINE ASSISTANT [address] [place] [address] 11/05/2025 10:30 AM EST Office Visit [facility] [address] [place] [address] Sergey Tyson MD [address] [place] [address] Lorri Keenan CCC-MAILING MACHINE ASSISTANT [address] [place] [address] 11/12/2025 10:30 AM EST Office Visit [facility] [address] [place] [address] Sergey Tyson MD [address] [place] [address] Lorri Keenan CCC-MAILING MACHINE ASSISTANT [address] [place] [address] 11/19/2025 9:30 AM EST Office Visit [facility] [address] [place] [address] Sergey Tyson MD [address] [place] [address] Lorri Keenan, CCC-MAILING MACHINE ASSISTANT [address] [place] [address] 12/10/2025 2:45 PM EST Office Visit [facility] [address] [place] [address] Unknown, Unknown, Karlos Henning MD [address] [place] [address] 04/28/2026 8:00 AM EDT Office Visit [facility] Internal Medicine [address] [place] [address] Sergey Tyson MD [address] [place], [place] [phone] 05/20/2026 9:00 AM EDT Office Visit [facility] [address] [place] [address] Apple Talavera MD [address] [place] [address] documented as of this encounter Visit Diagnoses Not on filedocumented in this encounter Additional Health Concerns Assessment Noted Time PHQ-9 Depression Total Score: 3 09/11/20 9:24 AM EDT PHQ-2 Depression Total Score: 1 09/11/20 9:24 AM EDT documented as of this encounter Care Teams Intelligence Research Specialist Relationship Specialty Start Date End Date Sergey Tyson MD [address] [place], [place] [phone] PCP - General Internal Medicine 05/10/22 Omar Rocha MD [email or web address] Physical Medicine and Rehabilitation 05/08/21 Sagar Leung MD [address] [place] [address] [address] [place] [address] [email or web address] Obstetrics and Gynecology 05/08/21 Yefri Hilliard MD [address] [place] [address] Endocrinology 05/08/21 [email or web address] Murry MD [address] [place] [address] [email or web address] Gastroenterology 02/27/22 Apple Talavera MD [address] [place] [address] Primary Oncologist Medical Oncology 02/19/23 Sergey Tyson MD [address] [place] [address] [email or web address] Insurance Assigned Provider 02/29/24 documented as of this encounter Additional Source Comments The information contained in this document represents components of the legal health record. It is not the complete legal health record.[facility]
--- OUTSIDE RECORDS SUMMARY | 2025-08-20 11:18 | XMS_ITS | Encounter Summary ---
Author Organization [facility] Address [facility] [employer] [facility] [address] [place] [address] Phone Care Team Providers Care Munitions Handler Name Role Phone Omar Rocha MD Unavailable Sagar Leung MD Unavailable Yefri Hilliard MD Unavailable Karlos Murry MD Unavailable Sergey Tyson MD Primary Care Provider [phone] Apple Talavera MD Unavailable Sergey Tyson MD Unavailable Encounter Details Date Type Department Care Team (Latest Contact Info) Description 12/27/2023 Transcribe Orders Virtual Department 30 [place] [address] Karlos Murry MD [address] [place] [address] [phone] [email or web address] Weight loss (Primary Dx) Social History Tobacco [...] high school, GED, job training, learning the Congolese language, technical skills, or developing parenting skills)? [...] Description 09/02/2025 9:30 AM EDT Office Visit [facility] [address] [place] [address] Sergey Tyson MD [address] [place] [address] Lorri Keenan CCC-INVENTORY TECHNICIAN 8 [place] [address] 09/09/2025 8:30 AM EDT Office Visit [address] [place] [address] Sergey Tyson MD [address] [place] [address] Lorri Keenan CCC-INVENTORY TECHNICIAN [address] [place] [address] 09/16/2025 8:30 AM EDT Office Visit [address] [place] [address] Sergey Tyson MD [address] [place] [address] Lorri Keenan CCC-INVENTORY TECHNICIAN 8 [place] [address] 09/23/2025 9:30 AM EDT Office Visit [address] [address] Sergey Tyson MD [address] [place] [address] Lorri Keenan CCC-INVENTORY TECHNICIAN 8 [place] [address] 10/01/2025 10:30 AM EST Office Visit [address] [place] [address] Sergey Tyson MD [address] [place] [address] Lorri Keenan CCC-INVENTORY TECHNICIAN [address] [place] [address] 10/08/2025 10:30 AM EST Office Visit [facility] 8 [place] [address] Sergey Tyson MD [address] [place] [address] Lorri Keenan CCC-INVENTORY TECHNICIAN [address] [place] [address] 10/11/2025 1:30 PM EST Office [facility]monary, Allergy and Critical Care Medicine [address] [place] [address] Rj Leiva MD [address] [place] [address] [email or web address] 10/15/2025 10:30 AM EST Office Visit [facility] 8 [place] [address] Sergey Tyson MD [address] [place] [address] Lorri Keenan CCC-INVENTORY TECHNICIAN [address] [place] [address] 10/18/2025 8:30 AM EST Office Visit [facility] 8 [place] [address] Sergey Tyson MD [address] [place] [address] Lorri Keenan CCC-INVENTORY TECHNICIAN 8 [place] [address] 10/28/2025 9:30 AM EST Office Visit [facility] 8 [place] [address] Sergey Tyson MD [address] [place] [address] Lorri Keenan CCC-INVENTORY TECHNICIAN [address] [place] [address] 11/05/2025 10:30 AM EST Office Visit [address] [address] Sergey Tyson MD [address] [place] [address] Lorri Keenan CCC-INVENTORY TECHNICIAN [address] [place] [address] 11/12/2025 10:30 AM EST Office Visit [facility] 8 [place] [address] Sergey Tyson MD [address] [place] [address] Lorri Keenan CCC-INVENTORY TECHNICIAN 8 [place] [address] 11/19/2025 9:30 AM EST Office Visit [address] [address] Sergey Tyson MD [address] [place] [address] Lorri Keenan, [facility]-INVENTORY TECHNICIAN 8 [place] [address] [email or web address] 12/10/2025 2:45 PM EST Office Visit [facility] 10 [place] [address] Unknown, Unknown, Karlos Henning MD [address] [place] [address] 04/28/2026 8:00 AM EDT Office Visit [facility] Internal Medicine 40 [place] [address] Sergey Tyson MD 40 [place] [address] 05/20/2026 9:00 AM EDT Office Visit [facility] 30 [place] [address] Apple Talavera MD [address] [place] [address] [email or web address] documented as of this encounter Visit Diagnoses Diagnosis Weight loss- Primary Loss of weight documented in this encounter Additional Health Concerns Assessment Noted Time PHQ-2 Depression Total Score: 0 01/28/20 23 6:26 PM EST documented as of this encounter Care Teams Munitions Handler Relationship Specialty Start Date End Date Sergey Tyson MD 40 [place] [address] [email or web address] PCP - General Internal Medicine 05/10/22 Omar Rocha MD [email or web address] Physical Medicine and Rehabilitation 05/08/21 Sagar Leung MD 22 [facility] [address] [place] [address] Obstetrics and Gynecology 05/08/21 Yefri Hilliard MD [address] [place] [address] Endocrinology 05/08/21 Karlos Murry MD [address] [place] [address] [email or web address] Gastroenterology 02/27/22 Apple Talavera MD [address] [place] [email or web address] Primary Oncologist Medical Oncology 02/19/23 Sergey Tyson MD [address] [place] [address] [email or web address] Insurance Assigned Provider 02/29/24 documented as of this encounter Additional Source Comments The information contained in this document represents components of the legal health record. It is not the complete legal health record.[facility]
--- OUTSIDE RECORDS SUMMARY | 2025-08-20 11:18 | XMS_ITS | Encounter Summary ---
Author Organization [facility] Address [facility] [address] [place] [address] Phone Care Team Providers Care Printer Slotter Operator Name Role Phone Karlos Lyons MD Unavailable Omar Rocha MD Unavailable Sagar Leung MD Unavailable Karlos Lyons MD Primary Care Provider [phone] Yefri Hilliard MD Unavailable Karlos Murry MD Unavailable [phone] Sergey Tyson MD Primary Care Provider [phone] Apple Talavera MD Unavailable Sergey Tyson MD Unavailable Mena Mcwilliams RN Unavailable [phone] Encounter Details Date Type Department Care Team (Latest Contact Info) Description 05/08/2021 Transcribe Orders Virtual Department 30 [place], [place] [phone] Omar Rocha MD [address] [place] [address] [email or web address] Left wrist pain (Primary Dx) Social History [...] Description 09/02/2025 9:30 AM EDT Office Visit [address] [address] Sergey Tyson MD [address] [place] [address] Lorri Keenan CCC-WIRELESS SALES ASSOCIATE [address] [place] [address] 09/09/2025 8:30 AM EDT Office Visit [address] [address] Sergey Tyson MD [address] [place] [address] Lorri Keenan CCC-WIRELESS SALES ASSOCIATE [address] [place] [address] 09/16/2025 8:30 AM EDT Office Visit [address] [address] Sergey Tyson MD [address] [place] [address] Lorri Keenan CCC-WIRELESS SALES ASSOCIATE 8 [place] [address] 09/23/2025 9:30 AM EDT Office Visit [facility] 8 [place] [address] Sergey Tyson MD [address] [place] [address] Lorri Keenan CCC-WIRELESS SALES ASSOCIATE 8 [place] [address] 10/01/2025 10:30 AM EST Office Visit [facility] 8 [place] [address] Sergey Tyson MD [address] [place] [address] Lorri Keenan CCC-WIRELESS SALES ASSOCIATE 8 [place] [address] [email or web address] 10/08/2025 10:30 AM EST Office Visit [facility] 8 [place] [address] Sergey Tyson MD [address] [place] [address] Lorri Keenan CCC-WIRELESS SALES ASSOCIATE 8 [place] [address] 10/11/2025 1:30 PM EST Office Visit [facility] Pulmonary, Allergy and Critical Care Medicine [address] [place] [address] Rj Leiva MD [address] [place] [address] [email or web address] 10/15/2025 10:30 AM EST Office Visit [facility] [address] [place] [address] Sergey Tyson MD [address] [place] [address] Lorri Keenan CCC-WIRELESS SALES ASSOCIATE 8 [place] [address] 10/18/2025 8:30 AM EST Office Visit [address] [place] [address] Sergey Tyson MD [address] [place] [address] Lorri Keenan CCC-WIRELESS SALES ASSOCIATE [address] [place] [address] 10/28/2025 9:30 AM EST Office Visit [address] [place] [address] Sergey Tyson MD [address] [place] [address] Lorri Keenan CCC-WIRELESS SALES ASSOCIATE 8 [place] [address] 11/05/2025 10:30 AM EST Office Visit [address] [address] Sergey Tyson MD [address] [place] [address] Lorri Keenan CCC-WIRELESS SALES ASSOCIATE 8 [place] [address] 11/12/2025 10:30 AM EST Office Visit [facility] 8 [place] [address] Sergey Tyson MD [address] [place] [address] Lorri Keenan CCC-WIRELESS SALES ASSOCIATE 8 [place] [address] 11/19/2025 9:30 AM EST Office Visit [facility] 8 [place] [address] Sergey Tyson MD [address] [place] [address] Lorri Keenan CCC-WIRELESS SALES ASSOCIATE 8 [place] [address] 12/10/2025 2:45 PM EST Office Visit [facility] G[facility]ology [facility] [address] [place] [address] Unknown, Huey, MD Murry, Karlos Martines MD [address] [place] [address] 04/28/2026 8:00 AM EDT Office Visit [facility] Internal Medicine [address] [place] [address] Sergey Tyson MD [address] [place] [address] 05/20/2026 9:00 AM EDT Office Visit [facility] at [address] [address] Apple Talavera MD [address] [place] [address] ([email or web address]) [email or web address] documented as of this encounter Results * [...] soft tissue calcifications. IMPRESSION: Mild degenerative changes. us Omar Rocha MD IMG XR UPPER [...] documented as of this encounter Care Teams Printer Slotter Operator Relationship Specialty Start Date End Date Karlos Lyons MD [address] [address] [email or web address] PCP - General Internal Medicine 05/08/21 05/09/22 Sergey Tyson MD [address] [place] [address] [email or web address] PCP - General Internal Medicine 05/10/22 Karlos Lyons MD [address] [place] [address] [email or web address] Insurance Assigned Provider 02/23/17 03/02/23 Omar Rocha MD [address] [place] [address] [email or web address] Physical Medicine and [email or web address] 05/08/21 Sagar Leung MD [address] [place] [address] [email or web address] Obstetrics and Gynecology 05/08/21 Yefri Hilliard MD [address] [place] [address] Endocrinology 05/08/21 Karlos Murry MD [address] [place] [address] [email or web address] Gastroenterology 02/27/22 Apple Talavera MD [address] [place] [address] [email or web address] Primary Oncologist Medical Oncology 02/19/23 Sergey Tyson MD [address] [place] [address] [email or web address] Insurance Assigned Provider 02/29/24 Mena Mcwilliams, RN [address] [place] [address] [email or web address] [employer] Specialty Transformer Assembler 11/13/23 12/11/23 documented as of this encounter Additional Source Comments The information contained in this document represents components of the legal health record. It is not the complete legal health record.[facility]
--- OUTSIDE RECORDS SUMMARY | 2025-08-20 11:18 | XMS_ITS | Encounter Summary ---
Author Organization [facility] Address [address] [place] [address] 9[address] [place] [address] Phone Care Team Providers Care Service Trainer Name Role Phone Karlos Lyons MD Primary Care Provider Karlos Lyons MD Unavailable [phone] Omar Rocha MD Unavailable [phone] Sagar Leung MD Unavailable Karlos Lyons MD Primary Care Provider [phone] Yefri Hilliard MD Unavailable [phone] Karlos Murry MD Unavailable [phone] Sergey Tyson MD Primary Care Provider Apple Talavera MD Unavailable [phone] Sergey Tyson MD Unavailable Mena Mcwilliams RN Unavailable [phone] Encounter Details Date Type Department Care Team (Late st Contact Info) Description 04/27/2021 Procedure Pass OR Admitting Dept - Virtual Department 30 [place], [place] [phone] Social History Tobacco Use Types Packs/Day Years [...] Description 09/02/2025 9:30 AM EDT Office Visit [address] [address] Sergey Tyson MD [address] [place] [address] Lorri Keenan CCC-FINANCE VICE PRESIDENT [address] [place] [address] 09/09/2025 8:30 AM EDT Office Visit [address] [place] [address] Sergey Tyson MD [address] [place] [address] Lorri Keenan CCC-FINANCE VICE PRESIDENT [address] [place] [address] 09/16/2025 8:30 AM EDT Office Visit [address] [place] [address] Sergey Tyson MD [address] [place] [address] Lorri Keenan CCC-FINANCE VICE PRESIDENT [address] [place] [address] 09/23/2025 9:30 AM EDT Office Visit [facility] 8 [place] [address] Sergey Tyson MD [address] [place] [address] Lorri Keenan CCC-FINANCE VICE PRESIDENT 8 [place] [address] 10/01/2025 10:30 AM EST Office Visit [facility] 8 [place] [address] Sergey Tyson MD [address] [place] [address] Lorri Keenan CCC-FINANCE VICE PRESIDENT 8 [place] [address] 10/08/2025 10:30 AM EST Office Visit [facility] 8 [place] [address] Sergey Tyson MD [address] [place] [address] Lorri Keenan CCC-FINANCE VICE PRESIDENT 8 [place] [address] 10/11/2025 1:30 PM EST Office Visit [facility] Pulmonary, Allergy and Critical Care Medicine [address] [place] [address] [phone] Rj Leiva MD [address] [place] [address] [email or web address] 10/15/2025 10:30 AM EST Office Visit [facility] 8 [place] [address] Sergey Tyson MD [address] [place] [address] Lorri Keenan CCC-FINANCE VICE PRESIDENT 8 [place] [address] 10/18/2025 8:30 AM EST Office Visit [address] [address] Sergey Tyson MD [address] [place] [address] Lorri Keenan CCC-FINANCE VICE PRESIDENT [address] [place] [address] 10/28/2025 9:30 AM EST Office Visit [address] [address] Sergey Tyson MD [address] [place] [address] Lorri Keenan CCC-FINANCE VICE PRESIDENT [address] [place] [address] 11/05/2025 10:30 AM EST Office Visit [address] [address] Sergey Tyson MD [address] [place] [address] Lorri Keenan CCC-FINANCE VICE PRESIDENT 8 [place] [address] 11/12/2025 10:30 AM EST Office Visit [address] [address] Sergey Tyson MD 40 [place] [address] Lorri Keenan CCC-FINANCE VICE PRESIDENT 8 [place] [address] 11/19/2025 9:30 AM EST Office Visit [facility] 8 [place] [address] Sergey Tyson MD [address] [place] [address] Lorri Keenan CCC-FINANCE VICE PRESIDENT 8 [place] [address] 12/10/2025 2:45 PM EST Office Visit [facility] Gastroenterology Clinic [address] [place] [address] Unknown, Unknown, MD Murry, Karlos Martines MD [address] [place] [address] 04/28/2026 8:00 AM EDT Office Visit [facility] Internal Medicine [address] [place] [address] Sergey Tyson MD [address] [place] [address] 05/20/2026 9:00 AM EDT Office Visit [facility] 30 [place] [address] Apple Talavera MD [address] [place] [address] documented as of this encounter Visit Diagnoses Not on filedocumented in this encounter Additional Health Concerns Infection Onset Date Last Indicated Resolved Time CoV-Risk 05/07/2022 05/07/2022 05/18/2022 1:24 AM EDT Assessment Noted Time PHQ-2 Depression Total Score: 0 04/28/20 12:48 PM EDT documented as of this encounter Care Teams Service Trainer Relationship Specialty Start Date End Date Karlos Lyons MD [address] [address] [email or web address] PCP - General Internal Medicine 07/14/14 05/07/21 Karlos Lyons MD [address] [place] [address] [email or web address] PCP - General Internal Medicine 05/08/21 05/09/22 Sergey Tyson MD [address] [place] [address] [email or web address] PCP - General Internal Medicine 05/10/22 Karlos Lyons MD [address] [place] [address] [email or web address] Insurance Assigned Provider 02/23/17 03/02/23 Omar Rocha MD [address] [place] [address] [email or web address] Physical Medicine and Rehabilitation 05/08/21 Sagar Leung MD [address] [place] [address], [address] [place] [address] [email or web address] Obstetrics and Gynecology 05/08/21 Yefri Hilliard MD [address] [place] [address] Endocrinology 05/08/21 Karlos Murry MD [address] [place] [address] [email or web address] Gastroenterology 02/27/22 Apple Talavera MD [address] [place] [address] Primary Oncologist Medical Oncology 02/19/23 Sergey Tyson MD [address] [place] [address] Insurance Assigned Provider 02/29/24 Mena Mcwilliams, RN [address] [place] [address] [email or web address] [employer] Hot Patcher 11/13/23 12/11/23 documented as of this encounter Additional Source Comments The information contained in this document represents components of the legal health record. It is not the complete legal health record.[facility]
--- OUTSIDE RECORDS SUMMARY | 2025-08-20 11:18 | XMS_ITS | Encounter Summary ---
Author Organization [facility] Address [address] [place] [address] [address] [place] [address] Phone Care Team Providers Care Chlorobutadiene Scrubber Operator Name Role Phone Omar Rocha MD Unavailable [phone] Sagar Leung MD Unavailable Yefri Hilliard MD Unavailable Karlos Murry MD Unavailable [phone] Sergey Tyson MD Primary Care Provider [phone] Apple Talavera MD Unavailable [phone] Sergey Tyson MD Unavailable Reason for Referral * Speech Therapy (Within 1 month) - Authorized Specialty Diagnoses / Procedures Referred By Jessica balbuena Referred To Contact Speech Pathology Diagnoses Gastroesophageal reflux disease without esophagitis Esophageal spasm Pharyngoesophageal dysphagia Sergey Tyson MD [address] [place] [address] Phone: tel: fax: mailto: [address] [address] Phone: tel: Referral ID Status Reason Start Date Expiration Date V isits Requested Visits Authorized [id number] Authorized 08/04/2025 08/04/2026 75 75 Reason for Visit * Reason Onset Date Comments Request for updated speech o rder for patient coming 09/02/25 08/04/2025 Request for updated speech o rder for patient coming 09/02/25. Per Department policy, order is valid for 90 days. Thank you, Brittney Figueroa Patient Access Services Rehab Department. Encounter Details Date Type Department Care Team (Late st Contact Info) Description 08/04/2025 Telephone [facility] Rehabilitation Services [address] [place] [address] Sergey Tyson MD [address] [place] [address] [email or web address] Request for updated speech order for patient coming 09/02/25 (Request for updated speech order for patient coming 09/02/25. Per Department policy, order is valid for 90 days. Thank you, Brittney Figueroa Patient Access Services Rehab Department. ) Social History Tobacco Use Types Packs/Day Years [...] as of this encounter Progress Notes * Alexa Ceron CNP - 08/04/2025 12:01 PM EDT Signed Alexa Ceron NP Virtual Clinic Support 08/04/25 12:02 PM documented in this encounter Plan of Treatment Upcoming Encounters Date Type Department Care Team (Late st Contact Info) Description 09/02/2025 9:30 AM EDT Office Visit [facility] [address] [place] [address] Sergey Tyson MD [address] [place] [address] Lorri Keenan CCC-BIG DATA HADOOP DEVELOPER 8 [place] [address] 09/09/2025 8:30 AM EDT Office Visit [facility] 8 [place] [address] Sergey Tyson MD [address] [place] [address] Lorri Keenan CCC-BIG DATA HADOOP DEVELOPER [address] [place] [address] 09/16/2025 8:30 AM EDT Office Visit [facility] 8 [place] [address] Sergey Tyson MD [address] [place] [address] Lorri Keenan CCC-BIG DATA HADOOP DEVELOPER 8 [place] [address] 09/23/2025 9:30 AM EDT Office Visit [facility] 8 [place] [address] Sergey Tyson MD [address] [place] [address] Lorri Keenan CCC-BIG DATA HADOOP DEVELOPER 8 [place] [address] 10/01/2025 10:30 AM EST Office Visit [facility] 8 [place] [address] Sergey Tyson MD [address] [place] [address] Lorri Keenan CCC-BIG DATA HADOOP DEVELOPER 8 [place] [address] 10/08/2025 10:30 AM EST Office Visit [facility] 8 [place] [address] Sergey Tyson MD [address] [place] [address] Lorri Keenan CCC-BIG DATA HADOOP DEVELOPER 8 [place] [address] 10/11/2025 1:30 PM EST Office Visit [facility] Pulmonary, Allergy and Critical Care Medicine [address] [place] [address] Rj Leiva MD [address] [place] [address] [email or web address] 10/15/2025 10:30 AM EST Office Visit [facility] [address] [place] [address] Sergey Tyson MD [address] [place] [address] Lorri Keenan CCC-BIG DATA HADOOP DEVELOPER 8 [place] [address] 10/18/2025 8:30 AM EST Office Visit [facility] [address] [place] [address] Sergey Tyson MD [address] [place] [address] Lorri Keenan CCC-BIG DATA HADOOP DEVELOPER [address] [place] [address] 10/28/2025 9:30 AM EST Office Visit [facility] 8 [place] [address] Sergey Tyson MD [address] [place] [address] Lorri Keenan CCC-BIG DATA HADOOP DEVELOPER [address] [place] [address] 11/05/2025 10:30 AM EST Office Visit [address] [address] Sergey Tyson MD [address] [place] [address] Lorri Keenan CCC-BIG DATA HADOOP DEVELOPER [address] [place] [address] 11/12/2025 10:30 AM EST Office Visit [facility] [address] [place] [address] Sergey Tyson MD [address] [place] [address] Lorri Keenan CCC-BIG DATA HADOOP DEVELOPER [address] [place] [address] 11/19/2025 9:30 AM EST Office Visit [facility] 8 [place] [address] Sergey Tyson MD [address] [place] [address] Lorri Keenan, VICTOR MANUEL-BIG DATA HADOOP DEVELOPER 8 [place] [address] [email or web address] 12/10/2025 2:45 PM EST Office Visit [facility] 10 [place] [address] Unknown, Huey, Karlos Henning MD [address] [address] 04/28/2026 8:00 AM EDT Office Visit [facility] Internal Medicine 40 [place] [address] Sergey Tyson MD [address] [place] [address] 05/20/2026 9:00 AM EDT Office Visit [facility] 30 [place] [address] Apple Talavera MD [address] [place] [address] [email or web address] Scheduled Referrals Name Type Priority Associated Diagnoses Order Schedule Ambulatory referral to [facility] Speech Language Pathology Outpatient Referral Routine Gastroesophageal reflux disease without esophagitis Esophageal spasm Pharyngoesophageal dysphagia Ordered: 08/04/2025 documented as of this encounter Visit Diagnoses Diagnosis Pharyngoesophageal dysphagia- Primary Dysphagia, pharyngoesophageal phase Gastroesophageal reflux disease without esophagitis Esophageal reflux Esophageal spasm Dyskinesia of esophagus documented in this encounter Additional Health Concerns Assessment Noted Time PHQ-9 Depression Total Score: 3 09/11/20 24 9:24 AM EDT PHQ-2 Depression Total Score: 0 04/07/20 25 12:34 PM EDT documented as of this encounter Care Teams Chlorobutadiene Scrubber Operator Relationship Specialty Start Date End Date Sergey Tyson MD [address] [place] [address] PCP - General Internal Medicine 05/10/22 Omar Rocha MD [email or web address] Physical Medicine and Rehabilitation 05/08/21 Sagar Leung MD [address] [place] [address] 102 [place] [address] Obstetrics and Gynecology 05/08/21 Yefri Hilliard MD [address] [place] [address] Endocrinology 05/08/21 Karlos Murry MD [address] [place] [address] Gastroenterology 02/27/22 Apple Talavera MD [address] [place] [address] Primary Oncologist Medical Oncology 02/19/23 Sergey Tyson MD [address] [place] [address] Insurance Assigned Provider 02/29/24 documented as of this encounter Additional Source Comments The information contained in this document represents components of the legal health record. It is not the complete legal health record.[facility]
--- OUTSIDE RECORDS SUMMARY | 2025-08-20 11:19 | XMS_ITS | Encounter Summary ---
Author Organization [facility] Address [address] [place] [address] Phone Care Team Providers Care Oil Field Laborer Name Role Phone Karlos Lyons MD Primary Care Provider Karlos Lyons MD Unavailable [phone] Omar Rocha MD Unavailable [phone] Sagar Leung MD Unavailable Karlos Lyons MD Primary Care Provider [phone] Yefri Hilliard MD Unavailable [phone] Karlos Murry MD Unavailable [phone] Sergey Tyson MD Primary Care Provider Apple Talavera MD Unavailable [phone] Sergey Tyson MD Unavailable Mena Mcwilliams RN Unavailable [phone] Reason for Referral * Occupational Therapy (Routine) - Closed Specialty Diagnoses / Procedures Referred By Jessica balbuena Referred To Contact Occupational Therapy Diagnoses Encounter for rehabilitation System, Provider Not In, PhD [id number] [place] [address] [place] [address] Phone: tel: Referral ID Status Reason Start Date Expiration Date Visits Re quested Visits Authorized [id number] Closed 02/14/2018 11/24/2018 99 99 Encounter Details Date Type Department Care Team (Latest Contact Info) Description 02/14/2018 Transcribe Orders [address] [address] Theresa Peterson [facility] [place] [address] [email or web address] Encounter for rehabilitation (Primary Dx) Social History [...] Description 09/02/2025 9:30 AM EDT Office Visit [address] [place] [address] Sergey Tyson MD [address] [place] [address] Lorri Keenan CCC-PULP DRIER 8 [place] [address] 09/09/2025 8:30 AM EDT Office Visit [facility] [address] [place] [address] Sergey Tyson MD [address] [place] [address] Lorri Keenan CCC-PULP DRIER 8 [place] [address] 09/16/2025 8:30 AM EDT Office Visit [address] [place] [address] Sergey Tyson MD [address] [place] [address] Lorri Keenan CCC-PULP DRIER [address] [place] [address] 09/23/2025 9:30 AM EDT Office Visit [address] [place] [address] Sergey Tyson MD [address] [place] [address] Lorri Keenan CCC-PULP DRIER [address] [place] [address] 10/01/2025 10:30 AM EST Office Visit [address] [address] Sergey Tyson MD [address] [place] [address] Lorri Keenan CCC-PULP DRIER [address] [place] [address] 10/08/2025 10:30 AM EST Office Visit [address] [place] [address] Sergey Tyson MD [address] [place] [address] Lorri Keenan CCC-PULP DRIER [address] [place] [address] 10/11/2025 1:30 PM EST Office Visit [facility] Pulmonary, Allergy and Critical Care Medicine 10 [place] [address] Rj Leiva MD [address] [place] [address] [email or web address] 10/15/2025 10:30 AM EST Office Visit [address] [address] Sergey Tyson MD [address] [place] [address] Lorri Keenan, CCC-PULP DRIER [address] [place] [address] 10/18/2025 8:30 AM EST Office Visit [address] [address] Sergey Tyson MD [address] [place] [address] Lorri Keenan, CCC-PULP DRIER [address] [place] [address] 10/28/2025 9:30 AM EST Office Visit [address] [address] Sergey Tyson MD [address] [place] [address] Lorri Keenan CCC-PULP DRIER [address] [place] [address] 11/05/2025 10:30 AM EST Office Visit [address] [address] Sergey Tyson MD [address] [place] [address] [email or web address] Lorri Keenan, CCC-PULP DRIER 8 [place] [address] 11/12/2025 10:30 AM EST Office Visit [facility] 8 [place] [address] Sergey Tyson MD [address] [place] [address] [email or web address] Lorri Keenan CCC-PULP DRIER 8 [place] [address] 11/19/2025 9:30 AM EST Office Visit [facility] 8 [place] [address] Sergey Tyson MD [address] [place] [address] [email or web address] Lorri Keenan, CCC-PULP DRIER 8 [place] [address] 12/10/2025 2:45 PM EST Office Visit [facility] Gastroenterology Clinic [address] [place] [address] Unknown, Unknown, Karlos Henning MD [address] [place] [address] 04/28/2026 8:00 AM EDT Office Visit [facility] Internal Medicine [address] [place] [address] Sergey Tyson MD [address] [place] [address] [email or web address] 05/20/2026 9:00 AM EDT Office Visit [facility] at [address] [address] Apple Talavera MD [address] [place] [email or web address] Scheduled Referrals Name Type Priority Associated Diagnoses Orde r Schedule Ambulatory referral to [facility] Occupational Therapy Outpatient Referral Routine Encounter for rehabilitation Ordered: 02/14/2018 documented as of this encounter Visit Diagnoses Diagnosis Encounter for rehabilitation- Primary documented in this encounter Additional Health Concerns Infection Onset Date Last Indicated Resolved Time CoV-Risk 05/07/2022 05/07/2022 05/18/2022 1:24 AM EDT documented as of this encounter Care Teams Oil Field Laborer Relationship Specialty Start Date End Date Karlos Lyons MD [address] [place] [address] [email or web address] PCP - General Internal Medicine 07/14/14 05/07/21 Karlos Lyons MD [address] [place] [address] [email or web address] PCP - General Internal Medicine 05/08/21 05/09/22 Sergey Tyson MD [address] [place] [address] [email or web address] PCP - General Internal Medicine 05/10/22 Karlos Lyons MD [address] [place] [address] [email or web address] Insurance Assigned Provider 02/23/17 03/02/23 Omar Rocha MD [address] [place] [address] 101 [place] [address] [email or web address] Physical Medicine and Rehabilitation 05/08/21 Sagar Leung MD [address] [place] [address], [address] [place] [address] Obstetrics and Gynecology 05/08/21 Yefri Hilliard MD [address] [place] [address] Endocrinology 05/08/21 Karlos Murry MD [address] [place] [address] Gastroenterology 02/27/22 Apple Talavera MD [address] [place] [address] Primary Oncologist Medical Oncology 02/19/23 Sergey Tyson MD [address] [place] [address] Insurance Assigned Provider 02/29/24 Mena Mcwilliams RN [address] [place] [address] [email or web address] Rehabilitation Physician 11/13/23 12/11/23 documented as of this encounter Additional Source Comments The information contained in this document represents components of the legal health record. It is not the complete legal health record.[facility]
--- OUTSIDE RECORDS SUMMARY | 2025-08-20 11:19 | XMS_ITS | Encounter Summary ---
Author Organization [facility] Address [facility] [address] [place] [address] Phone Care Team Providers Care Private Advisor Name Role Phone Kalros Lyons MD Unavailable [phone] Omar Rocha MD Unavailable [phone] Sagar Leung MD Unavailable Karlos Lyons MD Primary Care Provider [phone] Yefri Hilliard MD Unavailable Karlos Murry MD Unavailable [phone] Sergey Tyson MD Primary Care Provider Apple Talavera MD Unavailable [phone] Sergey Tyson MD Unavailable Mena Mcwilliams RN Unavailable [phone] Encounter Details Date Type Department Care Team (Late st Contact Info) Description 01/23/2022 Procedure Pass [facility] Endoscopy Admitting Dept Virtual Department 30 [place] [address] Social History Tobacco Use Types Packs/Day Years [...] Description 09/02/2025 9:30 AM EDT Office Visit [address] [address] Sergey Tyson MD [address] [place] [address] Lorri Keenan CCC-AGRICULTURAL LOAN OFFICER [address] [place] [address] 09/09/2025 8:30 AM EDT Office Visit [address] [address] Sergey Tyson MD [address] [place] [address] Lorri Keenan CCC-AGRICULTURAL LOAN OFFICER [address] [place] [address] 09/16/2025 8:30 AM EDT Office Visit [address] [address] Sergey Tyson MD [address] [place] [address] [email or web address] Lorri Keenan CCC-AGRICULTURAL LOAN OFFICER 8 [place] [address] 09/23/2025 9:30 AM EDT Office Visit [facility] 8 [place] [address] Sergey Tyson MD [address] [place] [address] [email or web address] Lorri Keenan CCC-AGRICULTURAL LOAN OFFICER 8 [place] [address] 10/01/2025 10:30 AM EST Office Visit [facility] 8 [place] [address] Sergey Tyson MD [address] [place] [address] [email or web address] Lorri Keenan CCC-AGRICULTURAL LOAN OFFICER 8 [place] [address] 10/08/2025 10:30 AM EST Office Visit [facility] 8 [place] [address] Sergey Tyson MD [address] [place] [address] Lorri Keenan CCC-AGRICULTURAL LOAN OFFICER 8 [place] [address] 10/11/2025 1:30 PM EST Office Visit [facility] Pulmonary, Allergy and Critical Care Medicine [address] [place] [address] Rj Leiva MD [address] [place] [address] [email or web address] 10/15/2025 10:30 AM EST Office Visit [facility] [address] [place] [address] Sergey Tyson MD 40 [place] [address] Lorri Keenan CCC-AGRICULTURAL LOAN OFFICER [address] [place] [address] 10/18/2025 8:30 AM EST Office Visit [facility] 8 [place] [address] Sergey Tyson MD [address] [place] [address] Lorri Keenan CCC-AGRICULTURAL LOAN OFFICER [address] [place] [address] 10/28/2025 9:30 AM EST Office Visit [address] [address] Sergey Tyson MD [address] [place] [address] Lorri Keenan CCC-AGRICULTURAL LOAN OFFICER [address] [place] [address] 11/05/2025 10:30 AM EST Office Visit [facility] 8 [place] [address] Sergey Tyson MD [address] [place] [address] Lorri Keenan CCC-AGRICULTURAL LOAN OFFICER [address] [place] [address] 11/12/2025 10:30 AM EST Office Visit [facility] 8 [place] [address] Sergey Tyson MD [address] [place] [address] Lorri Keenan CCC-AGRICULTURAL LOAN OFFICER 8 [place] [address] 11/19/2025 9:30 AM EST Office Visit [facility] Rehabilitation Services 8 [place] [address] Sergey Tyson MD [address] [place] [address] Lorri Keenan CCC-AGRICULTURAL LOAN OFFICER 8 [place] [address] 12/10/2025 2:45 PM EST Office Visit [facility] Gastroenterology Clinic [address] [place] [address] Unknown, Unknown, MD Murry, Karlos Martines MD [address] [place] [address] 04/28/2026 8:00 AM EDT Office Visit [facility] Internal Medicine [address] [place] [address] Sergey Tyson MD [address] [place] [address] 05/20/2026 9:00 AM EDT Office Visit [facility] at [address] [address] Apple Talavera MD [address] [place] [phone] [email or web address] documented as of this encounter Visit Diagnoses Not on filedocumented in this encounter Additional Health Concerns Infection Onset Date Last Indicated Resolved Time CoV-Risk 05/07/2022 05/07/2022 05/18/2022 1:24 AM EDT Assessment Noted Time PHQ-2 Depression Total Score: 0 05/05/20 21 9:23 PM EDT documented as of this encounter Care Teams Private Advisor Relationship Specialty Start Date End Date Karlos Lyons MD [address] [place] [address] [email or web address] PCP - General Internal Medicine 05/08/21 05/09/22 Sergey Tyson MD [address] [place] [address] [email or web address] PCP - General Internal Medicine 05/10/22 Karlos Lyons MD [address] [place] [address] [email or web address] Insurance Assigned Provider 02/23/17 03/02/23 Omar Rocha MD [address] [place] [address] [email or web address] Physical Medicine and Rehabilitation 05/08/21 Sagar Leung MD [address] [place] [address], [address] [place] [address] [email or web address] Obstetrics and Gynecology 05/08/21 Yefri Hilliard MD [address] [place] [address] Endocrinology 05/08/21 Karlos Murry MD [address] [place] [address] [email or web address] Gastroenterology 02/27/22 Apple Talavera MD [address] [place] [address] [email or web address] Primary Oncologist Medical Oncology 02/19/23 Sergey Tyson MD [address] [place] [address] [email or web address] Insurance Assigned Provider 02/29/24 Mena Mcwilliams, RN [address] [place] [address] [email or web address] [employer] Career Consultant 11/13/23 12/11/23 documented as of this encounter Additional Source Comments The information contained in this document represents components of the legal health record. It is not the complete legal health record.[facility]
--- OUTSIDE RECORDS SUMMARY | 2025-08-20 11:19 | XMS_ITS | Encounter Summary ---
Author Organization [facility] Address [address] [place] [address] Phone Care Team Providers Care Senior Vice President And Chief Information Officer Name Role Phone Karlos Lyons MD Primary Care Provider Karlos Lyons MD Unavailable [phone] Omar Rocha MD Unavailable [phone] Sagar Leung MD Unavailable Karlos Lyons MD Primary Care Provider + [phone] Yefri Hilliard MD Unavailable [phone] Karlos Murry MD Unavailable [phone] Sergey Tyson MD Primary Care Provider [phone] Apple Talavera MD Unavailable [phone] Sergey Tyson MD Unavailable Mena Mcwilliams RN Unavailable [phone] Encounter Details Date Type Department Care Team (Late st Contact Info) Description 08/19/2018 Ancillary Orders [facility] Internal Medicine [address] [place] [address] Karlos Lyons MD [address] [place] [address] [email or web address] Breast screening Social History Tobacco Use Types [...] Description 09/02/2025 9:30 AM EDT Office Visit [address] [place] [address] Sergey Tyson MD [address] [place] [address] Lorri Keenan CCC-NEWSCAST PRODUCER 8 [place] [address] 09/09/2025 8:30 AM EDT Office Visit [facility] [address] [place] [address] Sergey Tyson MD [address] [place] [address] 604[address] Lorri Keenan [employer]-NEWSCAST PRODUCER 8 [place] [address] 09/16/2025 8:30 AM EDT Office Visit [facility] [address] [place] [address] Sergey Tyson MD [address] [place] [address] 07[address] Lorri Keenan [employer]-NEWSCAST PRODUCER 8 [place] [address] 09/23/2025 9:30 AM EDT Office Visit [facility] 8 [place] [address] Sergey Tyson MD [address] [place] [address] 80214 Lorri Keenan [employer]-NEWSCAST PRODUCER 8 [place] [address] 10/01/2025 10:30 AM EST Office Visit [facility] 8 [place] [address] Sergey Tyson MD [address] [place] [address] 53[address] Lorri Keenan [employer]-NEWSCAST PRODUCER 8 [place] [address] 10/08/2025 10:30 AM EST Office Visit [facility] 8 [place] [address] Sergey Tyson MD [address] [place] [address] Lorri Keenan [employer]-NEWSCAST PRODUCER 8 [place] [address] 10/11/2025 1:30 PM EST Office Visit [facility], All[facility] Critical [facility] 10 [place], [place] [phone] Rj Leiva MD [address] [place] [address] [phone] [email or web address] 10/15/2025 10:30 AM EST Office Visit [address] [place] [address] Sergey Tyson MD [address] [place] [address] Lorri Keenan [employer]-NEWSCAST PRODUCER [address] [place] [address] 10/18/2025 8:30 AM EST Office Visit [address] [place] [address] Sergey Tyson MD [address] [place] [address] 39557 Lorri Keenan [employer]-NEWSCAST PRODUCER [address] [place] [address] 10/28/2025 9:30 AM EST Office Visit [address] [address] Sergey Tyson MD [address] [place] [address] Lorri Keenan [employer]-NEWSCAST PRODUCER [address] [place] [address] 11/05/2025 10:30 AM EST Office Visit [address] [place] [address] Sergey Tyson MD [address] [place] [address] Lorri Keenan [employer]-NEWSCAST PRODUCER [address] [place] [address] 11/12/2025 10:30 AM EST Office Visit [facility] 8 [place] [address] Sergey Tyson MD [address] [place] [address] 63348 Lorri Keenan CCC-NEWSCAST PRODUCER 8 [place] [address] 11/19/2025 9:30 AM EST Office Visit [facility] 8 [place] [address] Sergey Tyson MD [address] [place] [address] 70087 Lorri Keenan [employer]-NEWSCAST PRODUCER 8 [place] [address] 12/10/2025 2:45 PM EST Office Visit [facility] [address] [place] [address] 265[address] Unknown, Huey, MD Murry, Karlos Martines MD [address] [place] [address] 04/28/2026 8:00 AM EDT Office Visit [facility] Internal Medicine [address] [place] [address] Sergey Tyson MD [address] [place] [address] 05/20/2026 9:00 AM EDT Office Visit [facility] at [address] [address] Apple Talavera MD [address] [place] [address] [email or web address] documented as of this encounter Visit Diagnoses Diagnosis Breast screening Breast screening, unspecified documented in this encounter Additional Health Concerns Infection Onset Date Last Indicated Resolved Time CoV-Risk 05/07/2022 05/07/2022 05/18/2022 1:24 AM EDT documented as of this encounter Care Teams Senior Vice President And Chief Information Officer Relationship Specialty Start Date End Date Karlos Lyons MD [address] [place] [address] [email or web address] PCP - General Internal Medicine 07/14/14 05/07/21 Karlos Lyons MD [address] [place] [address] [email or web address] PCP - General Internal Medicine 05/08/21 05/09/22 Sergey Tyson MD [address] [place] [address] [email or web address] PCP - General Internal Medicine 05/10/22 Karlos Lyons MD [address] [place] [address] [email or web address] Insurance Assigned Provider 02/23/17 03/02/23 Omar Rocha MD [address] [place] [address] [email or web address] Physical Medicine and Rehabilitation 05/08/21 Sagar Leung MD [address] [place] [address], [address] [place] [address] Obstetrics and Gynecology 05/08/21 Yefri Hilliard MD [address] [place] [address] Endocrinology 05/08/21 Karlos Murry MD [address] [place] [address] [email or web address] Gastroenterology 02/27/22 Apple Talavera MD [address] [place] [address] [email or web address] Primary Oncologist Medical Oncology 02/19/23 Sergey Tyson MD [address] [place] [address] [email or web address] Insurance Assigned Provider 02/29/24 Mena Mcwilliams RN [address] [place] [address] [phone] [email or web address] [employer] 11/13/23 12/11/23 documented as of this encounter Additional Source Comments The information contained in this document represents components of the legal health record. It is not the complete legal health record.[facility]
--- OUTSIDE RECORDS SUMMARY | 2025-08-20 11:19 | XMS_ITS | Encounter Summary ---
Author Organization [facility] Address [address] [place] [address] [address] [place] [address] Phone Care Team Providers Care Meter Reader Chief Name Role Phone Karlos Lyons MD Unavailable [phone] Omar Rocha MD Unavailable Sagar Leung MD Unavailable Karlos Lyons MD Primary Care Provider [phone] Yefri Hilliard MD Unavailable [phone] Karlos Murry MD Unavailable [phone] Sergey Tyson MD Primary Care Provider Apple Talavera MD Unavailable [phone] Sergey Tyson MD Unavailable Mena Mcwilliams RN Unavailable [phone] Encounter Details Date Type Department Care Team (Latest Contact Info) Description 10/25/2021 Transcribe Orders Virtual Department 30 [place], [place] [phone] Karlos Lyons MD [address] [phone] [email or web address] Breast screening (Primary Dx) Social History Tobacco [...] Description 09/02/2025 9:30 AM EDT Office Visit [address] [address] Sergey Tyson MD [address] [place] [address] 116[address] Lorri Keenan CCC-RECEIVING TEAM MEMBER [address] [place] [address] 09/09/2025 8:30 AM EDT Office Visit [address] [address] Sergey Tyson MD [address] [place] [address] 221[address] Lorri Keenan [employer]-RECEIVING TEAM MEMBER [address] [place] [address] 09/16/2025 8:30 AM EDT Office Visit [address] [address] Sergey Tyson MD [address] [place] [address] 815[address] Lorri Keenan CCC-RECEIVING TEAM MEMBER 8 [place] [address] 09/23/2025 9:30 AM EDT Office Visit [facility] 8 [place] [address] Sergey Tyson MD [address] [place] [address] 0[address] Lorri Keenan CCC-RECEIVING TEAM MEMBER 8 [place] [address] 10/01/2025 10:30 AM EST Office Visit [facility] [address] [place] [address] Sergey Tyson MD [address] [place] [address] 16564 Lorri Keenan CCC-RECEIVING TEAM MEMBER 8 [place] [address] 10/08/2025 10:30 AM EST Office Visit [facility] [address] [place] [address] Sergey Tyson MD [address] [place] [address] 23461 Lorri Keenan CCC-RECEIVING TEAM MEMBER 8 [place] [address] 10/11/2025 1:30 PM EST Office Visit [facility] Allergy [facility] Critical [facility] Medicine [address] [place] [address] Rj Leiva MD [address] [place] [address] [email or web address] 10/15/2025 10:30 AM EST Office Visit [facility] [address] [place] [address] Sergey Tyson MD [address] [place] [address] 26194 Lorri Keenan CCC-RECEIVING TEAM MEMBER 8 [place] [address] 10/18/2025 8:30 AM EST Office Visit [address] [place] [address] Sergey Tyson MD [address] [place] [address] 23411 Lorri Keenan CCC-RECEIVING TEAM MEMBER [address] [place] [address] 10/28/2025 9:30 AM EST Office Visit [address] [place] [address] Sergey Tyson MD [address] [place] [address] 72836 Lorri Keenan CCC-RECEIVING TEAM MEMBER 8 [place] [address] 11/05/2025 10:30 AM EST Office Visit [address] [address] Sergey Tyson MD [address] [place] [address] 08573 Lorri Keenan CCC-RECEIVING TEAM MEMBER 8 [place] [address] 11/12/2025 10:30 AM EST Office Visit [facility] [address] [place] [address] Sergey Tyson MD [address] [place] [address] 93600 Lorri Keenan CCC-RECEIVING TEAM MEMBER 8 [place] [address] 11/19/2025 9:30 AM EST Office Visit [facility] [address] [place] [address] Sergey Tyson MD [address] [place] [address] 25424 Lorri Keenan CCC-RECEIVING TEAM MEMBER 8 [place] [address] 12/10/2025 2:45 PM EST Office Visit [facility] [address] [place] [address] 43710 Unknown, Huey, MD Murry, Karlos Martines MD [address] [place] [address] 04/28/2026 8:00 AM EDT Office Visit [facility] Internal Medicine [address] [place] [address] Sergey Tyson MD [address] [place] [address] 05/20/2026 9:00 AM EDT Office Visit [facility] at [address] [address] Apple Talavera MD [address] [place] [email or web address] documented as of this encounter Results * BI MAMMOGRAM SCREENING WITH TOMOSYNTHESIS WITH CAD (RIGHT) (02/20/2022 10:12 AM EDT) Anatomical Region Laterality Modality Breast Right, Breast Bilateral Right M ammography 02/20/2022 6:36 PM EDT Impressions 02/20/2022 6:39 PM EDT No mammographic signs of malignancy. Annual screening [...] documented as of this encounter Care Teams Meter Reader Chief Relationship Specialty Start Date End Date Karlos Lyons MD [address] [place] [address] [email or web address] PCP - General Internal Medicine 05/08/21 05/09/22 Sergey Tyson MD [address] [place] [address] [email or web address] PCP - General Internal Medicine 05/10/22 Karlos Lyons MD [address] [place] [address] 925[address] [email or web address] Insurance Assigned Provider 02/23/17 03/02/23 Omar Rocha MD [address] [place] [address] [email or web address] Physical Medicine and Rehabilitation 05/08/21 Sagar Leung MD [address] [facility], [address] [place] [address] [email or web address] Obstetrics and Gynecology 05/08/21 Yefri Hilliard MD [address] [place] [address] Endocrinology 05/08/21 Karlos Murry MD [address] [place] [address] [email or web address] Gastroenterology 02/27/22 Apple Talavera MD [address] [place] [address] 15155 [email or web address] Primary Oncologist Medical Oncology 02/19/23 Sergey Tyson MD [address] [place] [address]4920 [email or web address] Insurance Assigned Provider 02/29/24 Mena Mcwilliams, RN [address] [place] [address] [email or web address] [employer] Transportation Security Screener 11/13/23 12/11/23 documented as of this encounter Additional Source Comments The information contained in this document represents components of the legal health record. It is not the complete legal health record.[facility]
--- OUTSIDE RECORDS SUMMARY | 2025-08-20 11:19 | XMS_ITS | Encounter Summary ---
Author Organization [facility] Address [facility] [employer] [facility] [address] [place] [address] Phone Care Team Providers Care Kitchen Helper Name Role Phone Omar Rocha MD Unavailable [phone] Sagar Leung MD Unavailable Yefri Hilliard MD Unavailable [phone] Karlos Murry MD Unavailable Sergey Tyson MD Primary Care Provider Apple Talavera MD Unavailable [phone] Sergey Tyson MD Unavailable Encounter Details Date Type Department Care Team (Latest Contact Info) Description 03/09/2024 Transcribe Orders Virtual Department 30 [place] [address] Omar Rocha MD [address] [place] [address] [email or web address] Thoracic spine pain (Primary Dx) Social [...] high school, GED, job training, learning the [place] language, technical skills, or developing parenting skills)? [...] Description 09/02/2025 9:30 AM EDT Office Visit [facility] [address] [place] [address] Sergey Tyson MD [address] [place] [address] Lorri Keenan CCC-PNEUMATIC JACKETER 8 [place] [address] 09/09/2025 8:30 AM EDT Office Visit [address] [place] [address] Sergey Tyson MD [address] [place] [address] Lorri Keenan CCC-PNEUMATIC JACKETER [address] [place] [address] 09/16/2025 8:30 AM EDT Office Visit [address] [address] Sergey Tyson MD [address] [place] [address] Lorri Keenan CCC-PNEUMATIC JACKETER [address] [place] [address] 09/23/2025 9:30 AM EDT Office Visit [address] [address] Segrey Tyson MD [address] [place] [address] Lorri Keenan CCC-PNEUMATIC JACKETER 8 [place] [address] 10/01/2025 10:30 AM EST Office Visit [address] [place] [address] Sergey Tyson MD [address] [place] [address] Lorri Keenan CCC-PNEUMATIC JACKETER [address] [place] [address] 10/08/2025 10:30 AM EST Office Visit [facility] 8 [place] [address] Sergey Tyson MD [address] [place] [address] Lorri Keenan CCC-PNEUMATIC JACKETER [address] [place] [address] 10/11/2025 1:30 PM EST Office Visit [facility] Pulmonary, Allergy and Critical Care Medicine [address] [place] [address] Rj Leiva MD [address] [place] [address] [email or web address] 10/15/2025 10:30 AM EST Office Visit [facility] [address] [place] [address] Segrey Tyson MD [address] [place] [address] 396[address] Lorri Keenan CCC-PNEUMATIC JACKETER [address] [place] [address] 24[address] 10/18/2025 8:30 AM EST Office Visit [facility] 8 [place] [address] Sergey Tyson MD [address] [place] [address] Lorri Keenan CCC-PNEUMATIC JACKETER 8 [place] [address] 10/28/2025 9:30 AM EST Office Visit [facility] 8 [place] [address] Sergey Tyson MD [address] [place] [address] 138[address] Lorri Keenan CCC-PNEUMATIC JACKETER 8 [place] [address] 11/05/2025 10:30 AM EST Office Visit [address] [address] Sergey Tyson MD [address] [place] [address] 60398 Lorri Keenan CCC-PNEUMATIC JACKETER [address] [place] [address] 11/12/2025 10:30 AM EST Office Visit [facility] 8 [place] [address] Sergey Tyson MD [address] [place] [address] Lorri Keenan CCC-PNEUMATIC JACKETER 8 [place] [address] 11/19/2025 9:30 AM EST Office Visit [address] [address] Sergey Tyson MD [address] [place] [address] Lorri Keenan, CCC-PNEUMATIC JACKETER 8 [place] [address] 12/10/2025 2:45 PM EST Office Visit [facility] Gastroenterology Clinic 10 [place] [address] Unknown, Unknown, MD Murry, Karlos Martines MD [address] [address] 04/28/2026 8:00 AM EDT Office Visit [facility] Internal Medicine 40 [place] [address] Sergey Tyson MD 40 [place] [address] 05/20/2026 9:00 AM EDT Office Visit [facility] 30 [place] [address] Apple Talavera MD [address] [place] [address] documented as of this encounter Results * [...] documented as of this encounter Care Teams Kitchen Helper Relationship Specialty Start Date End Date Sergey Tyson MD [address] [place] [address] [email or web address] PCP - General Internal Medicine 05/10/22 Omar Rocha MD [email or web address] 05/08/21 Sagar Leung MD [address] [place] [address], [address] [place] [address] [email or web address] Obstetrics and Gynecology 05/08/21 Yefri Hilliard MD [address] [place] [address] Endocrinology 05/08/21 Karlos Murry MD [address] [place] [address] [email or web address] Gastroenterology 02/27/22 Apple Talavera MD [address] [place] [address] [email or web address] Primary Oncologist Medical Oncology 02/19/23 Sergey Tyson MD [address] [place] [address] [email or web address] Insurance Assigned Provider 02/29/24 documented as of this encounter Additional Source Comments The information contained in this document represents components of the legal health record. It is not the complete legal health record.[facility]
--- OUTSIDE RECORDS SUMMARY | 2025-08-20 11:19 | XMS_ITS | Encounter Summary ---
Author Organization [facility] Address [address] [place] [address] [address] [place] [address] Phone Care Team Providers Care Jumpbasting Canvas Baster Name Role Phone Karlos Lyons MD Primary Care Provider Karlos Lyons MD Unavailable [phone] Omar Rocha MD Unavailable [phone] Sagar Leung MD Unavailable Karlos Lyons MD Primary Care Provider [phone] Yefri Hilliard MD Unavailable [phone] Karlos Murry MD Unavailable [phone] Sergey Tyson MD Primary Care Provider [phone] Apple Talavera MD Unavailable [phone] Sergey Tyson MD Unavailable Mena Mcwilliams RN Unavailable [phone] Reason for Referral * Outpatient Procedure - Closed Specialty Diagnoses / Procedures Referred By Jessica balbuena Referred To Contact Radiology Diagnoses Bilateral hand pain Complex regional pain syndrome type 1 of both upper extremities Procedures NM Bone Flow 3 Phase Omar Rocha MD Phone: tel: fax: [email or web address]:[email or web address] Referral ID Status Reason Start Date Expiration Date Visits Re quested Visits Authorized [id number] Closed 04/17/2018 04/17/2019 1 1 Encounter Details Date Type Department Care Team (Late Contact Info) Description 04/17/2018 Ancillary Orders Virtual Department 30 [place] [address] Omar Rocha MD [address] [place] [phone] [email or web address] Bilateral hand pain; Complex regional pain syndrome [...] Department Care Team (Late Contact Info) Description 09/02/2025 9:30 AM EDT Office Visit [facility] 8 [place] [address] Sergey Tyson MD [address] [place] [address] Lorri Keenan, [facility] ELMER-COTTRELL OPERATOR 8 [place] [address] 09/09/2025 8:30 AM EDT Office Visit [facility] 8 [place] [address] Sergey Tyson MD [address] [place] [address] Lorri Keenan CCC-COTTRELL OPERATOR 8 [place] [address] 09/16/2025 8:30 AM EDT Office Visit [facility] 8 [place] [address] Sergey Tyson MD [address] [place] [address] Lorri Keenan CCC-COTTRELL OPERATOR 8 [place] [address] 09/23/2025 9:30 AM EDT Office Visit [facility] 8 [place] [address] Sergey Tyson MD [address] [place] [address] Lorri Keenan CCC-COTTRELL OPERATOR 8 [place] [address] 10/01/2025 10:30 AM EST Office Visit [facility] 8 [place] [address] Sergey Tyson MD [address] [place] [address] Lorri Keenan CCC-COTTRELL OPERATOR 8 [place] [address] 10/08/2025 10:30 AM EST Office Visit [facility] 8 [place] [address] Sergey Tyson MD [address] [place] [address] Lorri Keenan CCC-COTTRELL OPERATOR 8 [place] [address] 10/11/2025 1:30 PM EST Office Visit [facility] [place]monary, Allergy and Critical Care Medicine 10 [place] [address] Rj Leiva MD [address] [place] [address] [email or web address] 10/15/2025 10:30 AM EST Office Visit [address] [address] Sergey Tyson MD [address] [place] [address] Lorri Keenan CCC-COTTRELL OPERATOR 8 [place] [address] 10/18/2025 8:30 AM EST Office Visit [address] [address] Sergey Tyson MD [address] [place] [address] Lorri Keenan CCC-COTTRELL OPERATOR 8 [place] [address] 10/28/2025 9:30 AM EST Office Visit [facility] 8 [place] [address] Sergey Tyson MD [address] [place] [address] Lorri Keenan CCC-COTTRELL OPERATOR 8 [place] [address] 11/05/2025 10:30 AM EST Office Visit [facility] 8 [place] [address] Sergey Tyson MD [address] [place] [address] Lorri Keenan CCC-COTTRELL OPERATOR 8 [place] [address] 11/12/2025 10:30 AM EST Office Visit [facility] 8 [place] [address] Sergey Tyson MD [address] [place] [address] Lorri Keenan CCC-COTTRELL OPERATOR 8 [place] [address] 11/19/2025 9:30 AM EST Office Visit [facility] 8 [place] [address] Sergey Tyson MD [address] [place] [address] Lorri Keenan CCC-COTTRELL OPERATOR 8 [place] [address] 12/10/2025 2:45 PM EST Office Visit [facility] [address] [place] [address] Unknown, Huey, MD Murry, Karlos Martines MD [address] [address] 04/28/2026 8:00 AM EDT Office Visit [facility] Internal Medicine 40 [place] [address] Sergey Tyson MD 40 [place] [address] 05/20/2026 9:00 AM EDT Office Visit [facility] at [address] [address] Apple Talavera MD [address] [place] [address] documented as of this encounter Results * [...] wrist pain and swelling POS - [id number] Narrative 04/24/2018 2:57 PM EDT DOSE: 23.9 mCi Tc-99m labeled MDP COMPARISON: [...] swelling POS - [id number] Omar Rocha MD IM NM BONE SCAN Final Result documented in this [...] documented as of this encounter Care Teams Jumpbasting Canvas Baster Relationship Specialty Start Date End Date Karlos Lyons MD [address] [address] [email or web address] PCP - General Internal Medicine 07/14/14 05/07/21 Karlos Lyons MD [address] [address] [email or web address] PCP - General Internal Medicine 05/08/21 05/09/22 Sergey Tyson MD [address] [place] [address] [email or web address] PCP - General Internal Medicine 05/10/22 Karlos Lyons MD [address] [address] [email or web address] Insurance Assigned Provider 02/23/17 03/02/23 Omar Rocha MD [address] [place] [address] [email or web address] Physical Medicine and Rehabilitation 05/08/21 Sagar Leung MD [address] [place] [address] [email or web address] Obstetrics and Gynecology 05/08/21 Yefri Hilliard MD [address] [place] [address] Endocrinology 05/08/21 Karlos Murry MD [address] [place] [address] [email or web address] Gastroenterology 02/27/22 Apple Talavera MD [address] [place] [address] [email or web address] Primary Oncologist Medical Oncology 02/19/23 Sergey Tyson MD [address] [place] [address] [email or web address] Insurance Assigned Provider 02/29/24 Mena Mcwilliams RN [address] [place] [address] [email or web address] [employer] Project Manager 11/13/23 12/11/23 documented as of this encounter Additional Source Comments The information contained in this document represents components of the legal health record. It is not the complete legal health record.[facility]
--- OUTSIDE RECORDS SUMMARY | 2025-08-20 11:19 | XMS_ITS | Encounter Summary ---
Author Organization [facility] Address [address] [place] [address] [address] [place] [address] Phone Care Team Providers Care Electric Milkers Installer Name Role Phone Omar Rocha MD Unavailable Sagar Leung MD Unavailable Yefri Hilliard MD Unavailable Karlos Murry MD Unavailable [phone] Sergey Tyson MD Primary Care Provider [phone] Apple Talavera MD Unavailable [phone] Sergey Tyson MD Unavailable Reason for Referral * Outpatient Procedure - Closed Specialty Diagnoses / Procedures Referred By Jessica balbuena Referred To Contact Radiology Diagnoses Weight loss Procedures US Abdomen Arteries Duplex Limited Karlos Murry MD [address] [place] [address] Phone: tel: fax: [email or web address] Referral ID Status Reason Start Date Expiration Date Visits Re quested Visits Authorized [id number] Closed 02/03/2024 1 1 Encounter Details Date Type Department Care Team (Latest Contact Info) Description 02/03/2024 Transcribe Orders Virtual Department 30 [place] [address] Karlos Murry MD [address] [address] Weight loss (Primary Dx) Social History Tobacco [...] high school, GED, job training, learning the Bhut[place] language, technical skills, or developing parenting skills)? [...] Description 09/02/2025 9:30 AM EDT Office Visit [address] [place] [address] Sergey Tyson MD [address] [place] [address] Lorri Keenan CCC-CIVIL LABORATORY TECHNICIAN [address] [place] [address] 09/09/2025 8:30 AM EDT Office Visit [address] [place] [address] Sergey Tyson MD [address] [place] [address] Lorri Keenan CCC-CIVIL LABORATORY TECHNICIAN [address] [place] [address] 09/16/2025 8:30 AM EDT Office Visit [address] [address] Sergey Tyson MD [address] [place] [address] Lorri Keenan CCC-CIVIL LABORATORY TECHNICIAN 8 [place] [address] 09/23/2025 9:30 AM EDT Office Visit [facility] 8 [place] [address] Sergey Tyson MD [address] [place] [address] Lorri Keenan CCC-CIVIL LABORATORY TECHNICIAN 8 [place] [address] 10/01/2025 10:30 AM EST Office Visit [facility] 8 [place] [address] Sergey Tyson MD [address] [place] [address] Lorri Keenan CCC-CIVIL LABORATORY TECHNICIAN 8 [place] [address] 10/08/2025 10:30 AM EST Office Visit [facility] 8 [place] [address] Sergey Tyson MD [address] [place] [address] Lorri Keenan CCC-CIVIL LABORATORY TECHNICIAN 8 [place] [address] 10/11/2025 1:30 PM EST Office Visit [facility] Pulmonary, Allergy and Critical Care Medicine [address] [place] [address] [phone] Rj Leiva MD [address] [place] [address] [email or web address] 10/15/2025 10:30 AM EST Office Visit [facility] [address] [place] [address] Sergey Tyson MD [address] [place] [address] Lorri Keenan CCC-CIVIL LABORATORY TECHNICIAN [address] [place] [address] 10/18/2025 8:30 AM EST Office Visit [address] [address] Sergey Tyson MD [address] [place] [address] Lorri Keenan CCC-CIVIL LABORATORY TECHNICIAN [address] [place] [address] 10/28/2025 9:30 AM EST Office Visit [address] [address] Sergey Tyson MD [address] [place] [address] Lorri Keenan CCC-CIVIL LABORATORY TECHNICIAN [address] [place] [address] 11/05/2025 10:30 AM EST Office Visit [facility] 8 [place] [address] Sergey Tyson MD [address] [place] [address] Lorri Keenan CCC-CIVIL LABORATORY TECHNICIAN [address] [place] [address] 11/12/2025 10:30 AM EST Office Visit [address] [place] [address] Sergey Tyson MD [address] [place] [address] Lorri Keenan CCC-CIVIL LABORATORY TECHNICIAN 8 [place] [address] 11/19/2025 9:30 AM EST Office Visit [facility] 8 [place] [address] Sergey Tyson MD 40 [place] [address] Lorri Keenan CCC-CIVIL LABORATORY TECHNICIAN 8 [place] [address] 12/10/2025 2:45 PM EST Office Visit [facility] Gastroenterology Clinic [address] [place] [address] Unknown, Unknown, MD Murry, Karlos Martines MD [address] [place] [address] 04/28/2026 8:00 AM EDT Office Visit [facility] Internal Medicine 40 [place] [address] Sergey Tyson MD 40 [place] [address] 05/20/2026 9:00 AM EDT Office Visit [facility] 30 [place] [address] Apple Talavera MD 30 [place] [address] documented as of this encounter Results * [...] documented as of this encounter Care Teams Electric Milkers Installer Relationship Specialty Start Date End Date Sergey Tyson MD 40 [place] [address] PCP - General Internal Medicine 05/10/22 Omar Rocha MD [email or web address] Physical Medicine and Rehabilitation 05/08/21 Sagar Leung MD [address] [place] [address] 102 [place] [address] Obstetrics and Gynecology 05/08/21 Yefri Hilliard MD [address] [place] [address] Endocrinology 05/08/21 Karlos Murry MD [address] [place] [address] Gastroenterology 02/27/22 Apple Talavera MD [address] [place] [address] Primary Oncologist Medical Oncology 02/19/23 Sergey Tyson MD 40 [place] [address] Insurance Assigned Provider 02/29/24 documented as of this encounter Additional Source Comments The information contained in this document represents components of the legal health record. It is not the complete legal health record.[facility]
--- OUTSIDE RECORDS SUMMARY | 2025-08-20 11:19 | XMS_ITS | Encounter Summary ---
Author Organization [facility] Address [address] [place] [address] [address] [place] [address] Phone Care Team Providers Care Platform Power Technician Name Role Phone Karlos Lyons MD Primary Care Provider Karlos Lyons MD Unavailable [phone] Omar Rocha MD Unavailable [phone] Sagar Leung MD Unavailable Karlos Lyons MD Primary Care Provider [phone] Yefri Hilliard MD Unavailable [phone] Karlos Murry MD Unavailable [phone] Sergey Tyson MD Primary Care Provider [phone] Apple Talavera MD Unavailable [phone] Sergey Tyson MD Unavailable Mena Mcwilliams RN Unavailable [phone] Reason for Referral * MRI/CAT Scan - Closed Specialty Diagnoses / Procedures Referred By Jessica balbuena Referred To Contact Radiology Diagnoses Lumbar radiculopathy 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 Procedures MRI Lumbar Spine Omar Rocha MD Phone: tel: fax: mailto:[email or web address] Referral ID Status Reason Start Date Expiration Date Visits Re quested Visits Authorized [id number] Closed 10/07/2019 10/06/2020 1 1 Encounter Details Date Type Department Care Team (Latest Contact Info) Description 10/07/2019 Ancillary Orders Virtual Department 30 [place] [address] Omar Rocha MD [address] [place] [address] [email or web address] Lumbar radiculopathy; Displacement of intervertebral disc of [...] Description 09/02/2025 9:30 AM EDT Office Visit [facility] 8 [place] [address] Sergey Tyson MD [address] [place] [address] Lorri Keenan, [facility]-PAD MACHINE OPERATOR 8 [place] [address] 09/09/2025 8:30 AM EDT Office Visit [facility] [address] [place] [address] Sergey Tyson MD [address] [place] [address] Lorri Keenan CCC-PAD MACHINE OPERATOR [address] [place] [address] 09/16/2025 8:30 AM EDT Office Visit [address] [address] Sergey Tyson MD [address] [place] [address] Lorri Keenan CCC-PAD MACHINE OPERATOR [address] [place] [address] 09/23/2025 9:30 AM EDT Office Visit [address] [address] Sergey Tyson MD [address] [place] [address] Lorri Keenan CCC-PAD MACHINE OPERATOR [address] [place] [address] 10/01/2025 10:30 AM EST Office Visit [address] [address] Sergey Tyson MD [address] [place] [address] Lorri Keenan CCC-PAD MACHINE OPERATOR [address] [place] [address] 10/08/2025 10:30 AM EST Office Visit [address] [place] [address] Sergey Tyson MD 40 [place] [address] Lorri Keenan CCC-PAD MACHINE OPERATOR 8 [place] [address] 10/11/2025 1:30 PM EST Office Visit [facility] Pulmonary, Allergy and Critical Care Medicine 10 [place] [address] Rj Leiva MD [address] [place] [address] [email or web address] 10/15/2025 10:30 AM EST Office Visit [facility] 8 [place] [address] Sergey Tyson MD [address] [place] [address] Lorri Keenan CCC-PAD MACHINE OPERATOR 8 [place] [address] 10/18/2025 8:30 AM EST Office Visit [facility] 8 [place] [address] Sergey Tyson MD [address] [place] [address] Lorri Keenan CCC-PAD MACHINE OPERATOR 8 [place] [address] 10/28/2025 9:30 AM EST Office Visit [facility] [address] [place] [address] Sergey Tyson MD [address] [place] [address] Lorri Keenan CCC-PAD MACHINE OPERATOR 8 [place] [address] 11/05/2025 10:30 AM EST Office Visit [facility] 8 [place] [address] Sergey Tyson MD [address] [place] [address] Lorri Keenan CCC-PAD MACHINE OPERATOR 8 [place] [address] 11/12/2025 10:30 AM EST Office Visit [facility] 8 [place] [address] Sergey Tyson MD [address] [place] [address] Lorri Keenan CCC-PAD MACHINE OPERATOR 8 [place] [address] 11/19/2025 9:30 AM EST Office Visit [facility] 8 [place] [address] Sergey Tyson MD [address] [place] [address] Lorri Keenan CCC-PAD MACHINE OPERATOR 8 [place] [address] 12/10/2025 2:45 PM EST Office Visit [facility] [address] [place] [address] Unknown, Huey, MD Murry, Karlos Martines MD [address] [place] [phone] 04/28/2026 8:00 AM EDT Office Visit [facility] Internal Medicine 40 [place] [address] Sergey Tyson MD 40 [place] [address] 05/20/2026 9:00 AM EDT Office Visit [facility] at [address] [address] Apple Talavera MD [address] [place] [address] [email or web address] documented as of this encounter Results * [...] [id number] Narrative 10/10/2019 8:36 PM EST EXAM: MRI LUMBAR SPINE (BONE) WITHOUT CONTRAST COMPARISON: July 06, 2009 HISTORY: Lumbar radiculopathy 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 TECHNIQUE: Exam performed on a 1.5 Jo high-field MRI scanner. Magnetic resonance imaging of the lumbar spine was performed WITHOUT injected contrast using standard department protocols. Sagittal T1, T2 and STIR, axial T1 and T2 sequences were obtained. FINDINGS: Gradient artifacts from the fusion hardware at L5-S1 limits local evaluation. ALIGNMENT: Anatomic alignment is maintained. Minimal grade 1 anterolisthesis of L3 on L4. VERTEBRAL BODIES: Vertebral body heights are maintained. Bone marrow signal pattern is within normal limits. INTERVERTEBRAL DISCS: Mild desiccation changes and minimal loss of height of the L3-L4 and L4-L5 discs. SPINAL CORD/CONUS: Included spinal cord has normal caliber and signal [...] stenosis and moderate left neuroforaminal stenosis with mild compression of the left L4 [...] renal lesions that appear similar in size [id number]. Posterior paraspinal soft tissues are unremarkable. IMPRESSION: Multilevel degenerative changes as described above, progressed from 2009study. Moderate canal stenosis at L3-L4. Moderate neuroforaminal stenosison the left at L4-L5 associated with mild compression of the left [id number] nerve root. POS - [id number] Omar Rocha MD IM MR XSPECIALTY Final Result documented in this [...] documented as of this encounter Care Teams Platform Power Technician Relationship Specialty Start Date End Date Karlos Lyons MD [address] [address] [email or web address] PCP - General Internal Medicine 07/14/14 05/07/21 Karlos Lyons MD [address] [place] [address] [email or web address] PCP - General Internal Medicine 05/08/21 05/09/22 Sergey Tyson MD [address] [place] [address] [email or web address] PCP - General Internal Medicine 05/10/22 Karlos Lyons MD [address] [place] [address] [email or web address] Insurance Assigned Provider 02/23/17 03/02/23 Omar Rocha MD [address] [place] [address] [email or web address] Physical Medicine and Rehabilitation 05/08/21 Sagar Leung MD [address] [place] [address] [email or web address] Obstetrics and Gynecology 05/08/21 Yefri Hilliard MD [address] [place] [address] Endocrinology 05/08/21 Karlos Murry MD [address] [place] [address] [email or web address] Gastroenterology 02/27/22 Apple Talavera MD [address] [place] [address] [email or web address] Primary Oncologist Medical Oncology 02/19/23 Sergey Tyson MD [address] [place] [address] [email or web address] Insurance Assigned Provider 02/29/24 Mena Mcwilliams RN [address] [place] [address] [email or web address] [employer] 11/13/23 12/11/23 documented as of this encounter Additional Source Comments The information contained in this document represents components of the legal health record. It is not the complete legal health record.[facility]
--- OUTSIDE RECORDS SUMMARY | 2025-08-20 11:19 | XMS_ITS | Encounter Summary ---
Author Organization [facility] Address [facility] [address] [place] [address] Phone Care Team Providers Care Oil Spreader Operator Name Role Phone Karlos Lyons MD Unavailable Omar Rocha MD Unavailable Sagar Leung MD Unavailable Karlos Lyons MD Primary Care Provider [phone] Yefri Hilliard MD Unavailable [phone] Karlos Muryr MD Unavailable [phone] Sergey Tyson MD Primary Care Provider [phone] Apple Talavera MD Unavailable Sergey Tyson MD Unavailable Mena Mcwilliams RN Unavailable [phone] Encounter Details Date Type Department Care Team (Latest Contact Info) Description 11/13/2021 Transcribe Orders Virtual Department [address] [place], [place] [phone] Omar Rocha MD [address] [place] [address] [email or web address] Right foot pain (Primary Dx) Social History [...] Description 09/02/2025 9:30 AM EDT Office Visit [address] [address] Sergey Tyson MD [address] [place] [address] Lorri Keenan CCC-ELECTRICAL LINE MECHANIC [address] [place] [address] 09/09/2025 8:30 AM EDT Office Visit [address] [address] Sergey Tyson MD [address] [place] [address] Lorri Keenan CCC-ELECTRICAL LINE MECHANIC [address] [place] [address] 09/16/2025 8:30 AM EDT Office Visit [address] [address] Sergey Tyson MD [address] [place] [address] oLrri Keenan CCC-ELECTRICAL LINE MECHANIC 8 [place] [address] 09/23/2025 9:30 AM EDT Office Visit [facility] 8 [place] [address] Sergey Tyson MD [address] [place] [address] Lorri Keenan CCC-ELECTRICAL LINE MECHANIC 8 [place] [address] 10/01/2025 10:30 AM EST Office Visit [facility] 8 [place] [address] Sergey Tyson MD [address] [place] [address] Lorri Keenan CCC-ELECTRICAL LINE MECHANIC 8 [place] [address] 10/08/2025 10:30 AM EST Office Visit [facility] 8 [place] [address] Sergey Tyson MD [address] [place] [address] Lorri Keenan CCC-ELECTRICAL LINE MECHANIC 8 [place] [address] 10/11/2025 1:30 PM EST Office Visit [facility] Pulmonary, Allergy and Critical Care Medicine [address] [place] [address] Rj Leiva MD [address] [place] [address] [email or web address] 10/15/2025 10:30 AM EST Office Visit [facility] 8 [place] [address] Sergey Tyson MD [address] [place] [address] Lorri Keenan CCC-ELECTRICAL LINE MECHANIC 8 [place] [address] 10/18/2025 8:30 AM EST Office Visit [address] [place] [address] Sergey Tyson MD [address] [place] [address] Lorri Keenan CCC-ELECTRICAL LINE MECHANIC [address] [place] [address] 10/28/2025 9:30 AM EST Office Visit [address] [place] [address] Sergey Tyson MD [address] [place] [address] Lorri Keenan CCC-ELECTRICAL LINE MECHANIC 8 [place] [address] 11/05/2025 10:30 AM EST Office Visit [address] [address] Sergey Tyson MD [address] [place] [address] Lorri Keenan CCC-ELECTRICAL LINE MECHANIC 8 [place] [address] 11/12/2025 10:30 AM EST Office Visit [facility] 8 [place] [address] Sergey Tyson MD [address] [place] [address] Lorri Keenan CCC-ELECTRICAL LINE MECHANIC 8 [place] [address] 11/19/2025 9:30 AM EST Office Visit [facility] 8 [place] [address] Sergey Tyson MD [address] [place] [address] Lorri Keenan CCC-ELECTRICAL LINE MECHANIC 8 [place] [address] 12/10/2025 2:45 PM EST Office Visit [facility] [address] [place] [address] Unknown, Huey, MD Murry, Karlos Martines MD [address] [place] [address] 04/28/2026 8:00 AM EDT Office Visit [facility] Internal Medicine [address] [place] [address] Sergey Tyson MD [address] [place] [address] 05/20/2026 9:00 AM EDT Office Visit 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 3.Osteopenia. us Omar Rocha MD IMG XR LOWER EXTREMITY [...] as of this encounter Care Teams Oil Spreader Operator Relationship Specialty Start Date End Date Karlos Lyons MD [address] [address] [email or web address] PCP - General Internal Medicine 05/08/21 05/09/22 Sergey Tyson MD [address] [place] [address] [email or web address] PCP - General Internal Medicine 05/10/22 Karlos Lyons MD [address] [place] [address] [email or web address] Insurance Assigned Provider 02/23/17 03/02/23 Omar Rocha MD [address] [place] [address] [email or web address] Physical Medicine and Rehabilitation 05/08/21 Sagar Leung MD 22 [facility] 102 [place] [address] [email or web address] Obstetrics and Gynecology 05/08/21 Yefri Hilliard MD [address] [place] [address] Endocrinology 05/08/21 Karlos Murry MD [address] [place] [address] [email or web address] Gastroenterology 02/27/22 Apple Talavera MD [address] [place] [address] [email or web address] Primary Oncologist Medical Oncology 02/19/23 Sergey Tyson MD [address] [place] [address] [email or web address] Insurance Assigned Provider 02/29/24 Mena Mcwilliams, RN [address] [place] [address] [email or web address] iCMP Lime Sludge Mixer 11/13/23 12/11/23 documented as of this encounter Additional Source Comments The information contained in this document represents components of the legal health record. It is not the complete legal health record.[facility]
--- OUTSIDE RECORDS SUMMARY | 2025-08-20 11:19 | XMS_ITS | Encounter Summary ---
Author Organization [facility] Address [facility] [address] [place] [address] Phone Care Team Providers Care Refined Syrup Operator Name Role Phone Karlos Lyons MD Unavailable [phone] Omar Rocha MD Unavailable Sagar Leung MD Unavailable Yefri Hilliard MD Unavailable Karlos Murry MD Unavailable [phone] Sergey Tyson MD Primary Care Provider Apple Talavera MD Unavailable [phone] Sergey Tyson MD Unavailable Mena Mcwilliams RN Unavailable [phone] Encounter Details Date Type Department Care Team (Late st Contact Info) Description 02/27/2023 Procedure Pass [facility] [address] [place] [address] Social History Tobacco Use Types Packs/Day Years [...] Description 09/02/2025 9:30 AM EDT Office Visit [facility] Rehabilitation Services [address] [place] [address] Sergey Tyson MD 40 [place] [address] Lorri Keenan CCC-JAVA MANAGER [address] [place] [address] 09/09/2025 8:30 AM EDT Office Visit [facility] 8 [place] [address] Sergey Tyson MD [address] [place] [address] Lorri Keenan CCC-JAVA MANAGER [address] [place] [address] 09/16/2025 8:30 AM EDT Office Visit [facility] 8 [place] [address] Sergey Tyson MD [address] [place] [address] Lorri Keenan CCC-JAVA MANAGER [address] [place] [address] 09/23/2025 9:30 AM EDT Office Visit [facility] 8 [place] [address] Sergey Tyson MD [address] [place] [address] Lorri Keenan CCC-JAVA MANAGER [address] [place] [address] 10/01/2025 10:30 AM EST Office Visit [facility] 8 [place] [address] Sergey Tyson MD [address] [place] [address] Lorri Keenan CCC-JAVA MANAGER [address] [place] [address] 10/08/2025 10:30 AM EST Office Visit [facility] 8 [place] [address] Sergey Tyson MD [address] [place] [address] Lorri Keenan CCC-JAVA MANAGER [address] [place] [address] 10/11/2025 1:30 PM EST Office Visit [facility] Pulmonary, Allergy and Critical Care Medicine [address] [place] [address] Rj Leiva MD [address] [place] [address] [email or web address] 10/15/2025 10:30 AM EST Office Visit [facility] 8 [place] [address] Sergey Tyson MD [address] [place] [address] Lorri Keenan CCC-JAVA MANAGER [address] [place] [address] 10/18/2025 8:30 AM EST Office Visit [address] [address] Sergey Tyson MD [address] [place] [address] Lorri Keenan CCC-JAVA MANAGER [address] [place] [address] 10/28/2025 9:30 AM EST Office Visit [facility] 8 [place] [address] Sergey Tyson MD [address] [place] [address] Lorri Keenan CCC-JAVA MANAGER [address] [place] [address] 11/05/2025 10:30 AM EST Office Visit [address] [address] Sergey Tyson MD [address] [place] [address] Lorri Keenan CCC-JAVA MANAGER [address] [place] [address] 11/12/2025 10:30 AM EST Office Visit [address] [address] Sergey Tyson MD [address] [place] [address] Lorri Keenan CCC-JAVA MANAGER [address] [place] [address] 11/19/2025 9:30 AM EST Office Visit [address] [address] Sergey Tyson MD [address] [place] [address] Lorri Keenan CCC-JAVA MANAGER [address] [place] [address] 12/10/2025 2:45 PM EST Office Visit [facility] 10 [place] [address] Unknown, Unknown, Karlos Henning MD [address] [address] [email or web address] 04/28/2026 8:00 AM EDT Office Visit [facility] Internal Medicine 40 [place] [address] Sergey Tyson MD 40 [place] [address] [email or web address] 05/20/2026 9:00 AM EDT Office Visit [facility] 30 [place] [address] Apple Talavera MD [address] [place] [address] [email or web address] documented as of this encounter Visit Diagnoses Not on filedocumented in this encounter Additional Health Concerns Assessment Noted Time PHQ-2 Depression Total Score: 0 01/28/20 23 6:26 PM EST documented as of this encounter Care Teams Refined Syrup Operator Relationship Specialty Start Date End Date Sergey Tyson MD [address] [place] [address] [email or web address] PCP - General Internal Medicine 05/10/22 Karlos Lyons MD [address] [place] [address] [email or web address] Insurance Assigned Provider 02/23/17 03/02/23 Omar Rocha MD [address] [place] [address] [email or web address] Physical Medicine and Rehabilitation 05/08/21 Sagar Leung MD [address] [place] [address] 102 [place] [address] Obstetrics and Gynecology 05/08/21 Yefri Hilliard MD [address] [place] [address] Endocrinology 05/08/21 Karlos Murry MD [address] [place] [address] Gastroenterology 02/27/22 Apple Talavera MD [address] [place] [address] Primary Oncologist Medical Oncology 02/19/23 Sergey Tyson MD [address] [place] [address] Insurance Assigned Provider 02/29/24 Mena Mcwilliams RN [address] [place] [address] [email or web address] iCMP Senior Physician 11/13/23 12/11/23 documented as of this encounter Additional Source Comments The information contained in this document represents components of the legal health record. It is not the complete legal health record.[facility]
--- OUTSIDE RECORDS SUMMARY | 2025-08-20 11:19 | XMS_ITS | Encounter Summary ---
Author Organization [facility] Address [facility] [employer] [facility] [address] [place] [address] Phone Care Team Providers Care Welder Fitter Helper Name Role Phone Karlos Lyons MD Unavailable [phone] Omar Rocha MD Unavailable Sagar Leung MD Unavailable Karlos Lyons MD Primary Care Provider Yefri Hilliard MD Unavailable [phone] Karlos Murry MD Unavailable [phone] Sergey Tyson MD Primary Care Provider Apple Talavera MD Unavailable [phone] Sergey Tyson MD Unavailable Mena Mcwilliams RN Unavailable [phone] Encounter Details Date Type Department Care Team (Late st Contact Info) Description 10/25/2021 Procedure Pass [address] [address] Social History Tobacco Use Types Packs/Day Years [...] Description 09/02/2025 9:30 AM EDT Office Visit [address] [address] Sergey Tyson MD [address] [place] [address] Lorri Keenan CCC-COMPLIANCE OFFICER [address] [place] [address] 09/09/2025 8:30 AM EDT Office Visit [address] [address] Sergey Tyson MD [address] [place] [address] Lorri Keenan CCC-COMPLIANCE OFFICER [address] [place] [address] 09/16/2025 8:30 AM EDT Office Visit [address] [address] Sergey Tyson MD [address] [place] [address] Lorri Keenan CCC-COMPLIANCE OFFICER 8 [place] [address] 09/23/2025 9:30 AM EDT Office Visit [facility] 8 [place] [address] Sergey Tyson MD [address] [place] [address] [email or web address] Lorri Keenan CCC-COMPLIANCE OFFICER 8 [place] [address] 10/01/2025 10:30 AM EST Office Visit [facility] 8 [place] [address] Sergey Tyson MD [address] [place] [address] [email or web address] Lorri Keenan CCC-COMPLIANCE OFFICER 8 [place] [address] 10/08/2025 10:30 AM EST Office Visit [facility] 8 [place] [address] Sergey Tyson MD [address] [place] [address] Lorri Keenan CCC-COMPLIANCE OFFICER 8 [place] [address] 10/11/2025 1:30 PM EST Office Visit [facility] Pulmonary, Allergy and Critical Care Medicine [address] [place] [address] Rj Leiva MD [address] [place] [address] [email or web address] 10/15/2025 10:30 AM EST Office Visit [facility] [address] [place] [address] Sergey Tyson MD 40 [place] [address] Lorri Keenan CCC-COMPLIANCE OFFICER [address] [place] [address] 10/18/2025 8:30 AM EST Office Visit [address] [address] Sergey Tyson MD [address] [place] [address] Lorri Keenan CCC-COMPLIANCE OFFICER [address] [place] [address] 10/28/2025 9:30 AM EST Office Visit [address] [address] Sergey Tyson MD [address] [place] [address] Lorri Keenan CCC-COMPLIANCE OFFICER [address] [place] [address] 11/05/2025 10:30 AM EST Office Visit [facility] 8 [place] [address] Sergey Tyson MD [address] [place] [address] Lorri Keenan CCC-COMPLIANCE OFFICER [address] [place] [address] 11/12/2025 10:30 AM EST Office Visit [facility] 8 [place] [address] Sergey Tyson MD [address] [place] [address] Lorri Keenan CCC-COMPLIANCE OFFICER 8 [place] [address] 11/19/2025 9:30 AM EST Office Visit [facility] Rehabilitation Services 8 [place] [address] Sergey Tyson MD [address] [place] [address] Lorri Keenan CCC-COMPLIANCE OFFICER 8 [place] [address] 12/10/2025 2:45 PM EST Office Visit [facility] [address] [place] [address] Unknown, Unknown, MD Murry, Karlos Martines MD [address] [place] [address] 04/28/2026 8:00 AM EDT Office Visit [facility] Internal Medicine [address] [place] [address] Sergey Tyson MD [address] [place] [address] 05/20/2026 9:00 AM EDT Office Visit [facility] at [address] [address] Apple Talavera MD [address] [place] [address] documented as of this encounter Visit Diagnoses Not on filedocumented in this encounter Additional Health Concerns Infection Onset Date Last Indicated Resolved Time CoV-Risk 05/07/2022 05/07/2022 05/18/2022 1:24 AM EDT Assessment Noted Time PHQ-2 Depression Total Score: 0 05/05/20 21 9:23 PM EDT documented as of this encounter Care Teams Welder Fitter Helper Relationship Specialty Start Date End Date Karlos Lyons MD [address] [address] [email or web address] PCP - General Internal Medicine 05/08/21 05/09/22 Sergey Tyson MD [address] [place] [address] [email or web address] PCP - General Internal Medicine 05/10/22 Karlos Lyons MD [address] [place] [address] [email or web address] Insurance Assigned Provider 02/23/17 03/02/23 Omar Rocha MD [address] [place] [address] [email or web address] and [email or web address] 05/08/21 Sagar Leung MD [address] [place] [address] 102 [place] [address] [email or web address] Obstetrics and Gynecology 05/08/21 Yefri Hilliard MD [address] [place] [address] Endocrinology 05/08/21 Karlos Murry MD [address] [place] [address] [email or web address] Gastroenterology 02/27/22 Apple Talavera MD [address] [place] [address] [email or web address] Primary Oncologist Medical Oncology 02/19/23 Sergey Tyson MD [address] [place] [address] [email or web address] Insurance Assigned Provider 02/29/24 Mena Mcwilliams, RN [address] [place] [address] [phone] [email or web address] iCMP Hopper Attendant 11/13/23 12/11/23 documented as of this encounter Additional Source Comments The information contained in this document represents components of the legal health record. It is not the complete legal health record.[facility]
--- OUTSIDE RECORDS SUMMARY | 2025-08-20 11:19 | XMS_ITS | Encounter Summary ---
Author Organization [facility] Address [address] [place] [address] Phone Care Team Providers Care Wood Heel Back Liner Name Role Phone Karlos Lyons MD Primary Care Provider Karlos Lyons MD Unavailable [phone] Omar Rocha MD Unavailable [phone] Sagar Leung MD Unavailable Karlos Lyons MD Primary Care Provider + [phone] Yefri Hilliard MD Unavailable [phone] Karlos Murry MD Unavailable [phone] Sergey Tyson MD Primary Care Provider [phone] Apple Talavera MD Unavailable [phone] Sergey Tyson MD Unavailable Mena Mcwilliams RN Unavailable +[phone] Reason for Referral * Outpatient Procedure - Closed Specialty Diagnoses / Procedures Referred By Jessica balbuena Referred To Contact Radiology Diagnoses Dyspepsia Procedures NM Gastric Emptying Karlos Murry MD Phone: tel: fax: mailto: Referral ID Status Reason Start Date Expiration Date Visits Re quested Visits Authorized [id number] Closed 01/09/2018 01/09/2019 1 1 Encounter Details Date Type Department Care Team (Late st Contact Info) Description 01/09/2018 Ancillary Orders Virtual Department [address] [place] [address] Karlos Murry MD [address] [address] Dyspepsia Social History Tobacco Use Types Packs/Day [...] Description 09/02/2025 9:30 AM EDT Office Visit [address] [address] Sergey Tyson MD [address] [place] [address] Lorri Keenan, VICTOR MANUEL-SAP ADMINISTRATOR [address] [place] [address] 09/09/2025 8:30 AM EDT Office Visit [facility] 8 [place] [address] Sergey Tyson MD [address] [place] [address] [phone] Lorri Keenan CCC-SAP ADMINISTRATOR 8 [place] [address] 09/16/2025 8:30 AM EDT Office Visit [facility] 8 [place] [address] Sergey Tyson MD [address] [place] [address] Lorri Keenan CCC-SAP ADMINISTRATOR 8 [place] [address] 09/23/2025 9:30 AM EDT Office Visit [facility] 8 [place] [address] Sergey Tyson MD [address] [place] [address] Lorri Keenan CCC-SAP ADMINISTRATOR 8 [place] [address] 10/01/2025 10:30 AM EST Office Visit [facility] 8 [place] [address] Sergey Tyson MD [address] [place] [address] Lorri Keenan CCC-SAP ADMINISTRATOR 8 [place] [address] 10/08/2025 10:30 AM EST Office Visit [facility] 8 [place] [address] Sergey Tyson MD [address] [place] [address] Lorri Keenan CCC-SAP ADMINISTRATOR 8 [place] [address] 10/11/2025 1:30 PM EST Office Visit [facility] Pulmonary, Allergy and Critical Care Medicine 10 [place] [address] Rj Leiva MD [address] [place] [address] [email or web address] 10/15/2025 10:30 AM EST Office Visit [facility] 8 [place] [address] Sergey Tyson MD [address] [place] [address] Lorri Keenan CCC-SAP ADMINISTRATOR 8 [place] [address] 10/18/2025 8:30 AM EST Office Visit [facility] 8 [place] [address] Sergey Tyson MD [address] [place] [address] Lorri Keenan CCC-SAP ADMINISTRATOR 8 [place] [address] 10/28/2025 9:30 AM EST Office Visit [facility] 8 [place] [address] Sergey Tyson MD [address] [place] [address] Lorri Keenan CCC-SAP ADMINISTRATOR 8 [place] [address] 11/05/2025 10:30 AM EST Office Visit [facility] [address] [place] [address] Sergey Tyson MD [address] [place] [address] [email or web address] Lorri Keenan CCC-SAP ADMINISTRATOR 8 [place] [address] 11/12/2025 10:30 AM EST Office Visit [facility] 8 [place] [address] Sergey Tyson MD [address] [place] [address] [email or web address] Lorri Keenan CCC-SAP ADMINISTRATOR 8 [place] [address] 11/19/2025 9:30 AM EST Office Visit [facility] 8 [place] [address] Sergey Tyson MD [address] [place] [address] [email or web address] Lorri Keenan CCC-SAP ADMINISTRATOR 8 [place] [address] 12/10/2025 2:45 PM EST Office Visit [facility] G[facility]ology [facility] [address] [place] [address] Unknown, Unknown, MD Murry, Karlos Martines MD [address] [address] 04/28/2026 8:00 AM EDT Office Visit [facility] Internal Medicine [address] [place] [address] Sergey Tyson MD 40 [place] [address] 05/20/2026 9:00 AM EDT Office Visit [facility] [address] [place] [address] Apple Talavera MD [address] [place] [address] [email or web address] documented as of this encounter Results * NM GASTRIC EMPTYING SOLID PHASE (02/13/2018 1:22 PM EDT) Anatomical Region Laterality Modality Abdomen, Pelvis Nuclear Medicine 02/13/2018 3:56 PM EDT Impressions 02/13/2018 3:59 PM EDT Normal study. Dose: 1 mCi Tc-99m sulfur colloid in scrambled eggs. POS [id number] Narrative 02/13/2018 3:59 PM EDT HISTORY: Dyspepsia. COMPARISON: CT abdomen 08/12/2017. EXAM: Gastric emptying study. FINDINGS: The percent of gastric retention of radiotracer is measured at one hour, two hour and four hours. At one hour the measurement is 74.2%. At two hours the measurement is 33.9%. At four hours the measurement is 0.7%. All of the values are within normal limits. [...] documented as of this encounter Care Teams Wood Heel Back Liner Relationship Specialty Start Date End Date Karlos Lyons MD [address] [place] [address] [email or web address] PCP - General Internal Medicine 07/14/14 05/07/21 Karlos Lyons MD [address] [place] [address] [email or web address] PCP - General Internal Medicine 05/08/21 05/09/22 Sergey Tyson MD [address] [place] [address] [email or web address] PCP - General Internal Medicine 05/10/22 Karlos Lyons MD [address] [place] [address] [email or web address] Insurance Assigned Provider 02/23/17 03/02/23 Omar Rocha MD [address] [place] [address] [email or web address] Physical Medicine and Rehabilitation 05/08/21 Sagar Leung MD [address] [place] [address], [address] [place] [address] Obstetrics and Gynecology 05/08/21 Yefri Hilliard MD [address] [place] [address] Endocrinology 05/08/21 Karlos Murry MD [address] [place] [address] [email or web address] Gastroenterology 02/27/22 Apple Talavera MD [address] [place] [address] Primary Oncologist Medical Oncology 02/19/23 Sergey Tyson MD [address] [place] [address] Insurance Assigned Provider 02/29/24 Mena Mcwilliams RN [address] [place] [address] [email or web address] [employer] Fish Net Stringer 11/13/23 12/11/23 documented as of this encounter Additional Source Comments The information contained in this document represents components of the legal health record. It is not the complete legal health record.[facility]
--- OUTSIDE RECORDS SUMMARY | 2025-08-20 11:19 | XMS_ITS | Encounter Summary ---
Author Organization [facility] Address [address] [place] [address] 9[address] [place] [address] Phone Care Team Providers Care Soda Dispenser Name Role Phone Karlos Lyons MD Primary Care Provider Karlos Lyons MD Unavailable [phone] Omar Rocha MD Unavailable [phone] Sagar Leung MD Unavailable Karlos Lyons MD Primary Care Provider + [phone] Yefri Hilliard MD Unavailable [phone] Karlos Murry MD Unavailable [phone] Sergey Tyson MD Primary Care Provider Apple Talavera MD Unavailable [phone] Sergey Tyson MD Unavailable Mena Mcwilliams RN Unavailable [phone] Encounter Details Date Type Department Care Team (Late st Contact Info) Description 12/02/2017 Ancillary Orders [facility], X-Ray - [facility] [address] [place] [address] Omar Rocha MD 6 [place] [address] [email or web address] History Tobacco [...] 09/02/2025 9:30 AM EDT Office Visit [address] [address] Sergey Tyson MD [address] [place] [address] Lorri Keenan CCC-TRUCK RENTAL SERVICE ATTENDANT 8 [place] [address] 09/09/2025 8:30 AM EDT Office Visit [address] [address] Sergey Tyson MD [address] [place] [address] Lorri Keenan CCC-TRUCK RENTAL SERVICE ATTENDANT 8 [place] [address] 09/16/2025 8:30 AM EDT Office Visit [facility] 8 [place] [address] Sergey Tyson MD [address] [place] [address] Lorri Keenan CCC-TRUCK RENTAL SERVICE ATTENDANT 8 [place] [address] 09/23/2025 9:30 AM EDT Office Visit [facility] 8 [place] [address] Sergey Tyson MD [address] [place] [address] Lorri Keenan CCC-TRUCK RENTAL SERVICE ATTENDANT 8 [place] [address] 10/01/2025 10:30 AM EST Office Visit [facility] 8 [place] [address] Sergey Tyson MD [address] [place] [address] Lorri Keenan CCC-TRUCK RENTAL SERVICE ATTENDANT 8 [place] [address] 10/08/2025 10:30 AM EST Office Visit [facility] 8 [place] [address] Sergey Tyson MD [address] [place] [address] Lorri Keenan CCC-TRUCK RENTAL SERVICE ATTENDANT 8 [place] [address] 10/11/2025 1:30 PM EST Office Visit [facility] Pulmonary, Allergy and Critical Care Medicine [address] [place] [address] [phone] Rj Leiva MD [address] [place] [address] [email or web address] 10/15/2025 10:30 AM EST Office Visit [facility] 8 [place] [address] Sergey Tyson MD [address] [place] [address] Lorri Keenan CCC-TRUCK RENTAL SERVICE ATTENDANT 8 [place] [address] 10/18/2025 8:30 AM EST Office Visit [address] [address] Sergey Tyson MD [address] [place] [address] Lorri Keenan CCC-TRUCK RENTAL SERVICE ATTENDANT [address] [place] [address] 10/28/2025 9:30 AM EST Office Visit [address] [address] Sergey Tyson MD [address] [place] [address] Lorri Keenan CCC-TRUCK RENTAL SERVICE ATTENDANT [address] [place] [address] 11/05/2025 10:30 AM EST Office Visit [address] [address] Sergey Tyson MD [address] [place] [address] Lorri Keenan CCC-TRUCK RENTAL SERVICE ATTENDANT 8 [place] [address] 11/12/2025 10:30 AM EST Office Visit [facility] 8 [place] [address] Sergey Tyson MD 40 [place] [address] Lorri Keenan CCC-TRUCK RENTAL SERVICE ATTENDANT 8 [place] [address] 11/19/2025 9:30 AM EST Office Visit [facility] 8 [place] [address] Sergey Tyson MD [address] [place] [address] Lorri Keenan [facility]-TRUCK RENTAL SERVICE ATTENDANT 8 [place] [address] 12/10/2025 2:45 PM EST Office Visit [facility] Gastroenterology Clinic [address] [place] [address] Unknown, Unknown, MD Murry, Karlos Martines MD [address] [place] [address] 04/28/2026 8:00 AM EDT Office Visit [facility] Internal Medicine [address] [place] [address] Sergey Tyson MD [address] [place] [address] 05/20/2026 9:00 AM EDT Office Visit [facility] Cancer Center at [address] [address] Apple Talavera MD [address] [place] [address] [email or web address] documented as of this encounter Results * [...] lateral pain distal forearm POS - [id number] Narrative 12/02/2017 1:38 PM [...] documented as of this encounter Care Teams Soda Dispenser Relationship Specialty Start Date End Date Karlos Lyons MD [address] [address] [email or web address] PCP - General Internal Medicine 07/14/14 05/07/21 Karlos Lyons MD [address] [place] [address] [email or web address] PCP - General Internal Medicine 05/08/21 05/09/22 Sergey Tyson MD [address] [place] [address] [email or web address] PCP - General Internal Medicine 05/10/22 Karlos Lyons MD [address] [place] [address] [email or web address] Insurance Assigned Provider 02/23/17 03/02/23 Omar Rocha MD [address] [place] [phone] [email or web address] Physical Medicine [email or web address] 05/08/21 Sagar Leung MD [address] [place] [address], [address] [place] [address] [email or web address] Obstetrics and Gynecology 05/08/21 Yefri Hilliard MD [address] [place] [address] Endocrinology 05/08/21 Karlos Murry MD [address] [place] [address] [email or web address] Gastroenterology 02/27/22 Apple Talavera MD [address] [place] [address] [email or web address] Primary Oncologist Medical Oncology 02/19/23 Sergey Tyson MD [address] [place] [address] [email or web address] Insurance Assigned Provider 02/29/24 Mena Mcwilliams, RN 10 [place] [address] [email or web address] [employer] Brine Maker 11/13/23 12/11/23 documented as of this encounter Additional Source Comments The information contained in this document represents components of the legal health record. It is not the complete legal health record.[facility]
--- OUTSIDE RECORDS SUMMARY | 2025-08-20 11:19 | XMS_ITS | Encounter Summary ---
Author Organization [facility] Address [address] [place] [address] 985 [place] [address] Phone Care Team Providers Care Manager Furniture Name Role Phone Karlos Lyons MD Primary Care Provider + [phone] Karlos Lyons MD Unavailable [phone] Omar Rocha MD Unavailable [phone] Sagar Leung MD Unavailable Karlos Lyons MD Primary Care Provider + [phone] Yefri Hilliard MD Unavailable [phone] Karlos Murry MD Unavailable [phone] Sergey Tyson MD Primary Care Provider [phone] Apple Talavera MD Unavailable [phone] Sergey Tyson MD Unavailable Mena Mcwilliams RN Unavailable [phone] Reason for Referral * Consultation (Within 1 month) - Closed Specialty Diagnoses / Procedures Referred By Jessica balbuena Referred To Contact Rheumatology Marquita Jacobo MD Phone: tel: fax: mailto:[email or web address] Referral ID Status Reason Start Date Expiration Date Visits Re quested Visits Authorized [id number] Closed 05/30/2018 05/31/2019 1 1 Encounter Details Date Type Department Care Team (Late Contact Info) Description 05/30/2018 Transcribe Orders [facility] Rheumatology [address], [address] [place] [address] Marquita Jacobo MD [address] [facility] [address] [place] [address] [email or web address] Social History Tobacco Use Types Packs/Day Years [...] Description 09/02/2025 9:30 AM EDT Office Visit [facility] [address] [place] [address] Sergey Tyson MD [address] [place] [address] [email or web address] Lorri Keenan, [facility]-EXCHANGE TELLER 8 [place] [address] 09/09/2025 8:30 AM EDT Office Visit [facility] [address] [place] [address] Sergey Tyson MD [address] [place] [address] Lorri Keenan CCC-EXCHANGE TELLER [address] [place] [address] 09/16/2025 8:30 AM EDT Office Visit [facility] 8 [place] [address] Sergey Tyson MD [address] [place] [address] Lorri Keenan CCC-EXCHANGE TELLER [address] [place] [address] 09/23/2025 9:30 AM EDT Office Visit [facility] 8 [place] [address] Sergey Tyson MD [address] [place] [address] Lorri Keenan CCC-EXCHANGE TELLER [address] [place] [address] 10/01/2025 10:30 AM EST Office Visit [facility] 8 [place] [address] Sergey Tyson MD [address] [place] [address] Lorri Keenan CCC-EXCHANGE TELLER [address] [place] [address] 10/08/2025 10:30 AM EST Office Visit [facility] [address] [place] [address] Sergey Tyson MD [address] [place] [address] Lorri Keenan CCC-EXCHANGE TELLER 8 [place] [address] 10/11/2025 1:30 PM EST Office Visit [facility] Pulmonary, Allergy and Critical Care Medicine 10 [place] [address] Rj Leiva MD [address] [place] [address] [email or web address] 10/15/2025 10:30 AM EST Office Visit [facility] 8 [place] [address] Sergey Tyson MD [address] [place] [address] Lorri Keenan CCC-EXCHANGE TELLER 8 [place] [address] 10/18/2025 8:30 AM EST Office Visit [facility] 8 [place] [address] Sergey Tyson MD [address] [place] [address] Lorri Keenan CCC-EXCHANGE TELLER 8 [place] [address] 10/28/2025 9:30 AM EST Office Visit [facility] 8 [place] [address] Sergey Tyson MD [address] [place] [address] Lorri Keenan CCC-EXCHANGE TELLER 8 [place] [address] 11/05/2025 10:30 AM EST Office Visit [facility] 8 [place] [address] Sergey Tyson MD [address] [place] [address] Lorri Keenan CCC-EXCHANGE TELLER 8 [place] [address] 11/12/2025 10:30 AM EST Office Visit [address] [address] Sergey Tyson MD [address] [place] [address] Lorri Keenan CCC-EXCHANGE TELLER 8 [place] [address] 11/19/2025 9:30 AM EST Office Visit [address] [address] Sergey Tyson MD [address] [place] [address] Lorri Keenan CCC-EXCHANGE TELLER [address] [place] [address] 12/10/2025 2:45 PM EST Office Visit [facility] Gastroenterology Clinic [address] [place] [address] Unknown, Huey, MD Murry, Karlos Martines MD [address] [place] [address] 04/28/2026 8:00 AM EDT Office Visit [facility] Internal Medicine 40 [place] [address] Sergey Tyson MD 40 [place] [address] [email or web address] 05/20/2026 9:00 AM EDT Office Visit [facility] 30 [place] [address] Apple Talavera MD [address] [place] [address] [email or web address] Scheduled Referrals Name Type Priority Associated Diagnoses Order Schedule Ambulatory referral to [facility] Rheumatology Outpatient Referral Routine Ordered: 05/30/2018 documented as of this encounter Visit Diagnoses Not on filedocumented in this encounter Additional Health Concerns Infection Onset Date Last Indicated Resolved Time CoV-Risk 05/07/2022 05/07/2022 05/18/2022 1:24 AM EDT documented as of this encounter Care Teams Manager Furniture Relationship Specialty Start Date End Date Karlos Lyons MD [address] [place] [address] [email or web address] PCP - General Internal Medicine 07/14/14 05/07/21 Karlos Lyons MD [address] [place] [address] [email or web address] PCP - General Internal Medicine 05/08/21 05/09/22 Sergey Tyson MD [address] [place] [address] [email or web address] PCP - General Internal Medicine 05/10/22 Karlos Lyons MD [address] [place] [address] [email or web address] Insurance Assigned Provider 02/23/17 03/02/23 Omar Rocha MD [address] [place] [address] [email or web address] and [email or web address] 05/08/21 Sagar Leung MD [address] [place] [address], [address] [place] [address] Obstetrics and Gynecology 05/08/21 Yefri Hilliard MD [address] [place] [address] Endocrinology 05/08/21 Karlos Murry MD [address] [place] [address] Gastroenterology 02/27/22 Apple Talavera MD [address] [place] [email or web address] Primary Oncologist Medical Oncology 02/19/23 Sergey Tyson MD [address] [place] [address] Insurance Assigned Provider 02/29/24 Mena Mcwilliams, RUSS [address] [place] [address] [email or web address] [employer] Color Tester 11/13/23 12/11/23 documented as of this encounter Additional Source Comments The information contained in this document represents components of the legal health record. It is not the complete legal health record.[facility]
--- OUTSIDE RECORDS SUMMARY | 2025-08-20 11:19 | XMS_ITS | Encounter Summary ---
Author Organization [facility] Address [address] [place] [address] [address] [place] [address] Phone Care Team Providers Care Forest Pathology Associate Professor Name Role Phone Karlos Lyons MD Primary Care Provider Karlos Lyons MD Unavailable [phone] Omar Rocha MD Unavailable [phone] Sagar Leung MD Unavailable Karlos Lyons MD Primary Care Provider + [phone] Yefri Hilliard MD Unavailable [phone] Karlos Murry MD Unavailable [phone] Sergey Tyson MD Primary Care Provider [phone] Apple Talavera MD Unavailable [phone] Sergey Tyson MD Unavailable Mena Mcwilliams RN Unavailable [phone] Encounter Details Date Type Department Care Team (Late st Contact Info) Description 09/14/2017 Ancillary Orders [facility] [place] [facility] [address] [place], [place] [address] Apple Talavera MD [address] [place] [address] Abnormal findings on diagnostic imaging of breast [...] Description 09/02/2025 9:30 AM EDT Office Visit [address] [address] Sergey Tyson MD [address] [place] [address] Lorri Keenan CCC-DRIVER'S EDUCATION INSTRUCTOR [address] [place] [address] 09/09/2025 8:30 AM EDT Office Visit [address] [address] Sergey Tyson MD [address] [place] [address] [phone] Lorri Keenan CCC-DRIVER'S EDUCATION INSTRUCTOR [address] [place] [address] 09/16/2025 8:30 AM EDT Office Visit [address] [address] Sergey Tyson MD [address] [place] [address] Lorri Keenan CCC-DRIVER'S EDUCATION INSTRUCTOR 8 [place] [address] 09/23/2025 9:30 AM EDT Office Visit [facility] [address] [place] [address] Sergey Tyson MD [address] [place] [address] Lorri Keenan CCC-DRIVER'S EDUCATION INSTRUCTOR 8 [place] [address] 10/01/2025 10:30 AM EST Office Visit [facility] [address] [place] [address] Sergey Tyson MD [address] [place] [address] Lorri Keenan CCC-DRIVER'S EDUCATION INSTRUCTOR 8 [place] [address] 10/08/2025 10:30 AM EST Office Visit [facility] 8 [place] [address] Sergey Tyson MD [address] [place] [address] Lorri Keenan CCC-DRIVER'S EDUCATION INSTRUCTOR 8 [place] [address] 10/11/2025 1:30 PM EST Office Visit [facility] [address] [place] [address] Rj Leiva MD [address] [place] [address] [email or web address] 10/15/2025 10:30 AM EST Office Visit [facility] [address] [place] [address] Sergey Tyson MD [address] [place] [address] Lorri Keenan CCC-DRIVER'S EDUCATION INSTRUCTOR 8 [place] [address] 10/18/2025 8:30 AM EST Office Visit [facility] [address] [place] [address] Sergey Tyson MD [address] [place] [address] Lorri Keenan CCC-DRIVER'S EDUCATION INSTRUCTOR [address] [place] [address] 10/28/2025 9:30 AM EST Office Visit [facility] 8 [place] [address] Sergey Tyson MD [address] [place] [address] Lorri Keenan CCC-DRIVER'S EDUCATION INSTRUCTOR 8 [place] [address] 11/05/2025 10:30 AM EST Office Visit [address] [address] Sergey Tyson MD [address] [place] [address] Lorri Keenan CCC-DRIVER'S EDUCATION INSTRUCTOR 8 [place] [address] 11/12/2025 10:30 AM EST Office Visit [facility] [address] [place] [address] Sergey Tyson MD [address] [place] [address] Lorri Keenan, CCC-DRIVER'S EDUCATION INSTRUCTOR 8 [place] [address] 11/19/2025 9:30 AM EST Office Visit [facility] 8 [place] [address] Sergey Tyson MD [address] [place] [address] Lorri Keenan CCC-DRIVER'S EDUCATION INSTRUCTOR 8 [place] [address] 12/10/2025 2:45 PM EST Office Visit [facility] [address] [place] [address] Unknown, Unknown, MD Murry, Karlos Martines MD [address] [place] [address] 04/28/2026 8:00 AM EDT Office Visit [facility] Internal Medicine [address] [place] [address] Sergey Tyson MD [address] [place] [address] 05/20/2026 9:00 AM EDT Office Visit [facility] [address] [place] [address] Apple Talavera MD [address] [place] [address] [email or web address] documented as of this encounter Visit Diagnoses Diagnosis Abnormal findings on diagnostic imaging of breast Other (abnormal) findings on radiological examination of breast documented in this encounter Additional Health Concerns Infection Onset Date Last Indicated Resolved Time CoV-Risk 05/07/2022 05/07/2022 05/18/2022 1:24 AM EDT documented as of this encounter Care Teams Forest Pathology Associate Professor Relationship Specialty Start Date End Date Karlos Lyons MD [address] [place] [address] [email or web address] PCP - General Internal Medicine 07/14/14 05/07/21 Karlos Lyons MD [address] [place] [address] [email or web address] PCP - General Internal Medicine 05/08/21 05/09/22 Sergey Tyson MD [address] [place] [address] [email or web address] PCP - General Internal Medicine 05/10/22 Karlos Lyons MD [address] [place] [address] [email or web address] Insurance Assigned Provider 02/23/17 03/02/23 Omar Rocha MD [address] [place] [address] [email or web address] 05/08/21 Sagar Leung MD [address] [place] [address], [address] [place] [address] Obstetrics and Gynecology 05/08/21 Yefri Hilliard MD [address] [place] [address] Endocrinology 05/08/21 Karlos Murry MD [address] [place] [address] [email or web address] Gastroenterology 02/27/22 Apple Talavera MD [address] [place] [address] [email or web address] Primary Oncologist Medical Oncology 02/19/23 Sergey Tyson MD [address] [place] [address] [email or web address] Insurance Assigned Provider 02/29/24 Mena Mcwilliams RN [address] [place] [address] [email or web address] iCMP Laboratory [employer] 11/13/23 12/11/23 documented as of this encounter Additional Source Comments The information contained in this document represents components of the legal health record. It is not the complete legal health record.[facility]
--- OUTSIDE RECORDS SUMMARY | 2025-08-20 11:19 | XMS_ITS | Encounter Summary ---
Author Organization [facility] Address [address] [place] [address] Phone Care Team Providers Care Director News Name Role Phone Karlos Lyons MD Primary Care Provider Karlos Lyons MD Unavailable [phone] Omar Rocha MD Unavailable [phone] Sagar Leung MD Unavailable Karlos Lyons MD Primary Care Provider + [phone] Yefri Hilliard MD Unavailable [phone] Karlos Murry MD Unavailable [phone] Sergey Tyson MD Primary Care Provider [phone] Apple Talavera MD Unavailable [phone] Sergey Tyson MD Unavailable Mena Mcwilliams RN Unavailable [phone] Encounter Details Date Type Department Care Team (Late st Contact Info) Description 09/04/2019 Ancillary Orders [facility] Internal Medicine [address] [place] [address] Karlos Lyons MD [address] [place] [address] [email or web address] Breast screening Social History Tobacco Use [...] Description 09/02/2025 9:30 AM EDT Office Visit [address] [place] [address] Sergey Tyson MD [address] [place] [address] Lorri Keenan CCC-VICE PRESIDENT SALES AND MARKETING [address] [place] [address] [email or web address] 09/09/2025 8:30 AM EDT Office Visit [facility] [address] [place] [address] Sergey Tyson MD [address] [place] [address] Lorri Keenan CCC-VICE PRESIDENT SALES AND MARKETING 8 [place] [address] 09/16/2025 8:30 AM EDT Office Visit [facility] [address] [place] [address] Sergey Tyson MD [address] [place] [address] Lorri Keenan CCC-VICE PRESIDENT SALES AND MARKETING 8 [place] [address] 09/23/2025 9:30 AM EDT Office Visit [facility] 8 [place] [address] Sergey Tyson MD [address] [place] [address] Lorri Keenan CCC-VICE PRESIDENT SALES AND MARKETING 8 [place] [address] 10/01/2025 10:30 AM EST Office Visit [facility] 8 [place] [address] Sergey Tyson MD [address] [place] [address] Lorri Keenan CCC-VICE PRESIDENT SALES AND MARKETING 8 [place] [address] 10/08/2025 10:30 AM EST Office Visit [facility] 8 [place] [address] Sergey Tyson MD [address] [place] [address] Lorri Keenan CCC-VICE PRESIDENT SALES AND MARKETING 8 [place] [address] 10/11/2025 1:30 PM EST Office Visit [facility] Allergy [facility] Critical Care Medicine [address] [place] [address] Rj Leiva MD [address] [place] [address] [email or web address] 10/15/2025 10:30 AM EST Office Visit [address] [address] Sergey Tyson MD [address] [place] [address] Lorri Keenan CCC-VICE PRESIDENT SALES AND MARKETING [address] [place] [address] 10/18/2025 8:30 AM EST Office Visit [address] [address] Sergey Tyson MD [address] [place] [address] Lorri Keenan CCC-VICE PRESIDENT SALES AND MARKETING [address] [place] [address] 10/28/2025 9:30 AM EST Office Visit [address] [address] Sergey Tyson MD [address] [place] [address] Lorri Keenan CCC-VICE PRESIDENT SALES AND MARKETING [address] [place] [address] 11/05/2025 10:30 AM EST Office Visit [address] [place] [address] Sergey Tyson MD [address] [place] [address] Lorri Keenan CCC-VICE PRESIDENT SALES AND MARKETING [address] [place] [address] 11/12/2025 10:30 AM EST Office Visit [facility] 8 [place] [address] Sergey Tyson MD [address] [place] [address] 71066 Lorri Keenan CCC-VICE PRESIDENT SALES AND MARKETING 8 [place] [address] 11/19/2025 9:30 AM EST Office Visit [facility] 8 [place] [address] Sergey Tyson MD [address] [place] [address] 20434 Lorri Keenan [facility]-VICE PRESIDENT SALES AND MARKETING 8 [place] [address] 12/10/2025 2:45 PM EST Office Visit [facility] [address] [place] [address] Unknown, Unknown, MD Murry, Karlos Martines MD [address] [place] [address] 04/28/2026 8:00 AM EDT Office Visit [facility] Internal Medicine [address] [place] [address] Sergey Tyson MD [address] [place] [address] 05/20/2026 9:00 AM EDT Office [facility] at [address] [address] Apple Talavera MD [address] [place] [address] [email or web address] documented as of this encounter Results * BI MAMMOGRAM SCREENING WITH TOMOSYNTHESIS WITH CAD (RIGHT) (09/04/2019 10:56 AM EDT) Anatomical Region Laterality Modality Breast Right, Breast Bilateral Right M ammography 09/04/2019 11:3 0 AM EDT Impressions 09/04/2019 11:32 AM EDT Stable appearance relative to prior imaging. No findings suggestive of malignancy are seen. BI-RADS CATEGORY: 2 - Benign finding. DENSITY: The breast tissue is heterogeneously dense, an appearance which lowers the sensitivity of mammography. POS - [id number] Narrative 09/04/2019 11:32 AM EDT Full-field digital mammography is obtained with computer-aided detection. Comparison with prior imaging from 08/19/2018 is made with older imaging dating back as far as 04/13/2013 also reviewed. There is heterogeneous fibroglandular density evident in the breasts. In addition to 2-D C view imaging, tomosynthesis images are obtained in two projections of the right breast. The patient has had a left mastectomy. Minor scattered punctate calcifications are again noted and are unchanged.. No dominant soft tissue mass of concern, [...] whichlowers the sensitivity of mammography. POS - [id number] Karlos Lyons MD IMG MG EXAMS Final [...] as of this encounter Care Teams Director News Relationship Specialty Start Date End Date Karlos Lyons MD [address] [place] [address] [email or web address] PCP - General Internal Medicine 07/14/14 05/07/21 Karlos Lyons MD [address] [place] [address] [email or web address] PCP - General Internal Medicine 05/08/21 05/09/22 Sergey Tyson MD [address] [place] [address] [email or web address] PCP - General Internal Medicine 05/10/22 Karlos Lyons MD [address] [place] [address] [email or web address] Insurance Assigned Provider 02/23/17 03/02/23 Omar Rocha MD [address] [place] [address] [email or web address] Physical Medicine and Rehabilitation 05/08/21 Sagar Leung MD [address] [place] [address], [address] [place] [address] Obstetrics and Gynecology 05/08/21 Yefri Hilliard MD [address] [place] [address] Endocrinology 05/08/21 Karlos Murry MD [address] [place] [address] Gastroenterology 02/27/22 Apple Talavera MD [address] [place] [address] Primary Oncologist Medical Oncology 02/19/23 Sergey Tyson MD [address] [place] [address] Insurance Assigned Provider 02/29/24 Mena Mcwilliams, RUSS [address] [place] [address] [email or web address] iCMP Central Service Tech 11/13/23 12/11/23 documented as of this encounter Additional Source Comments The information contained in this document represents components of the legal health record. It is not the complete legal health record.[facility]
--- OUTSIDE RECORDS SUMMARY | 2025-08-20 11:20 | XMS_ITS | Encounter Summary ---
Author Organization [facility] Address [address] [place] [address] [address] [place] [address] Phone Care Team Providers Care Educational Director Name Role Phone Karlos Lyons MD Primary Care Provider Karlos Lyons MD Unavailable [phone] Omar Rocha MD Unavailable [phone] Sagar Leung MD Unavailable Karlos Lyons MD Primary Care Provider + [phone] Yefri Hilliard MD Unavailable [phone] Karlos Murry MD Unavailable [phone] Sergey Tyson MD Primary Care Provider Apple Talavera MD Unavailable [phone] Sergey Tyosn MD Unavailable Mena Mcwilliams RN Unavailable [phone] Encounter Details Date Type Department Care Team (Latest Contact Info) Description 10/30/2018 Transcribe Orders [address] [place] [address] Karlos Murry MD [address] [place] [address]9 Nausea (Primary Dx) Social History Tobacco Use [...] 09/02/2025 9:30 AM EDT Office Visit [address] [place] [address] Sergey Tyson MD [address] [place] [address] Lorri eKenan CCC-COLLECTIONS ANALYST [address] [place] [address] 09/09/2025 8:30 AM EDT Office Visit [address] [place] [address] Sergey Tyson MD [address] [place] [address] Lorri Keenan CCC-COLLECTIONS ANALYST [address] [place] [address] 09/16/2025 8:30 AM EDT Office Visit [address] [place] [address] Sergey Tyson MD [address] [place] [address] 25[address] Lorri Keenan CCC-COLLECTIONS ANALYST 8 [place] [address] 09/23/2025 9:30 AM EDT Office Visit [facility] 8 [place] [address] Sergey Tyson MD [address] [place] [address] Lorri Keenan CCC-COLLECTIONS ANALYST 8 [place] [address] 10/01/2025 10:30 AM EST Office Visit [facility] 8 [place] [address] Sergey Tyson MD [address] [place] [address] 77[address] Lorri Keenan CCC-COLLECTIONS ANALYST 8 [place] [address] 10/08/2025 10:30 AM EST Office Visit [facility] 8 [place] [address] Sergey Tyson MD [address] [place] [address] 707[address] Lorri Keenan CCC-COLLECTIONS ANALYST 8 [place] [address] 10/11/2025 1:30 PM EST Office Visit [facility] Allergy [facility] Critical [facility] Medicine [address] [place] [address] Rj Leiva MD [address] [place] [address] [email or web address] 10/15/2025 10:30 AM EST Office Visit [facility] [address] [place] [address] Sergey Tyson MD [address] [place] [address] Lorri Keenan CCC-COLLECTIONS ANALYST [address] [place] [address] 10/18/2025 8:30 AM EST Office Visit [address] [address] Sergey Tyson MD [address] [place] [address] 77[address] Lorri Keenan CCC-COLLECTIONS ANALYST [address] [place] [address]85 10/28/2025 9:30 AM EST Office Visit [address] [address] Sergey Tyson MD [address] [place] [address] 38047 Lorri Keenan CCC-COLLECTIONS ANALYST [address] [place] [address] 11/05/2025 10:30 AM EST Office Visit [address] [place] [address] Sergey Tyson MD [address] [place] [address] 54571 Lorri Keenan CCC-COLLECTIONS ANALYST 8 [place] [address] 11/12/2025 10:30 AM EST Office Visit [facility] 8 [place] [address] Sergey Tyson MD [address] [place] [address] 393[address] Lorri Keenan CCC-COLLECTIONS ANALYST 8 [place] [address] 11/19/2025 9:30 AM EST Office Visit [facility] 8 [place] [address] Sergey Tyson MD [address] [place] [address] Lorri Keenan [facility]-COLLECTIONS ANALYST 8 [place] [address] 12/10/2025 2:45 PM EST Office Visit [facility] Gastroenterology Clinic [address] [place] [address] Unknown, Huey, MD Murry, Karlos Martines MD [address] [place] [address] 04/28/2026 8:00 AM EDT Office Visit [facility] Internal Medicine [address] [place] [address] Sergey Tyson MD [address] [place] [address] 05/20/2026 9:00 AM EDT Office Visit [facility] at [address] [address] Apple Talavera MD [address] [place] [address] [email or web address] documented as of this encounter Results * Stool fat/fiber exam (10/29/2018 8:00 PM EST) FATTY ACID NORMAL NORMAL [facility] Neutral Fat, stool NORMAL NORMAL [facility] Stool (Stool) 10/29/2018 8:0 0 PM EST 10/30/2018 11:55 AM EST us Karlos Murry MD BODY FLUIDS AND STOOLS ORD ERABLES Final Result [facility] [address] [place] [address] documented in this encounter Visit Diagnoses Diagnosis Nausea- Primary Nausea alone documented in this encounter Additional Health Concerns Infection Onset Date Last Indicated Resolved Time CoV-Risk 05/07/2022 05/07/2022 05/18/2022 1:24 AM EDT Assessment Noted Time PHQ-2 Depression Total Score: 0 10/20/20 18 10:00 AM EST documented as of this encounter Care Teams Educational Director Relationship Specialty Start Date End Date Karlos Lyons MD [address] [address] [email or web address] PCP - General Internal Medicine 07/14/14 05/07/21 Karlos Lyons MD [address] [place] [address] [email or web address] PCP - General Internal Medicine 05/08/21 05/09/22 Sergey Tyson MD [address] [place] [address] [email or web address] PCP - General Internal Medicine 05/10/22 Karlos Lyons MD [address] [address] [email or web address] Insurance Assigned Provider 02/23/17 03/02/23 Omar Rocha MD [address] [place] [address] [email or web address] and [email or web address] 05/08/21 Sagar Leung MD [address] [place] [address] [address] [place] [address] Obstetrics and Gynecology 05/08/21 Yefri Hilliard MD [address] [place] [address] Endocrinology 05/08/21 Karlos Murry MD [address] [place] [address] Gastroenterology 02/27/22 Apple Talavera MD [address] [place] [address] 23284 Primary Oncologist Medical Oncology 02/19/23 Sergey Tyson MD [address] [place] [address] Insurance Assigned Provider 02/29/24 Mena Mcwilliams, RN [address] [place] [address] [email or web address] iCMP Manager Environmental Services 11/13/23 12/11/23 documented as of this encounter Additional Source Comments The information contained in this document represents components of the legal health record. It is not the complete legal health record.[facility]
--- OUTSIDE RECORDS SUMMARY | 2025-08-20 11:20 | XMS_ITS | Encounter Summary ---
Author Organization [facility] Address [address] [place] [address] [address] [place] [address] Phone Care Team Providers Care Senior Accounting Specialist Name Role Phone Karlos Lyons MD Primary Care Provider Karlos Lyons MD Unavailable [phone] Omar Rocha MD Unavailable [phone] Sagar Leung MD Unavailable Karlos Lyons MD Primary Care Provider + [phone] Yefri Hilliard MD Unavailable [phone] Karlos Murry MD Unavailable [phone] Sergey Tyson MD Primary Care Provider Apple Talavera MD Unavailable [phone] Sergey Tyson MD Unavailable Mena Mcwilliams RN Unavailable [phone] Encounter Details Date Type Department Care Team (Late st Contact Info) Description 03/16/2019 Procedure Pass [facility] [address] [place] [address] Social History Tobacco Use Types [...] Description 09/02/2025 9:30 AM EDT Office Visit [address] [address] Sergey Tyson MD [address] [place] [address] Lorri Keenan CCC-SMALL STOCK FACER [address] [place] [address] 09/09/2025 8:30 AM EDT Office Visit [address] [address] Sergey Tyson MD [address] [place] [address] Lorri Keenan CCC-SMALL STOCK FACER 8 [place] [address] 09/16/2025 8:30 AM EDT Office Visit [address] [address] Sergey Tyson MD [address] [place] [address] Lorri Keenan CCC-SMALL STOCK FACER 8 [place] [address] 09/23/2025 9:30 AM EDT Office Visit [facility] 8 [place] [address] Sergey Tyson MD [address] [place] [address] Lorri Keenan CCC-SMALL STOCK FACER 8 [place] [address] 10/01/2025 10:30 AM EST Office Visit [facility] 8 [place] [address] Sergey Tyson MD [address] [place] [address] Lorri Keenan CCC-SMALL STOCK FACER 8 [place] [address] 10/08/2025 10:30 AM EST Office Visit [facility] 8 [place] [address] Sergey Tyson MD [address] [place] [address] Lorri Keenan CCC-SMALL STOCK FACER 8 [place] [address] 10/11/2025 1:30 PM EST Office Visit [facility] Pulmonary, Allergy and Critical Care Medicine [address] [place] [address] [phone] Rj Leiva MD [address] [place] [address] [email or web address] 10/15/2025 10:30 AM EST Office Visit [facility] [address] [place] [address] Sergey Tyson MD [address] [place] [address] Lorri Keenan CCC-SMALL STOCK FACER [address] [place] [address] 10/18/2025 8:30 AM EST Office Visit [address] [address] Sergey Tyson MD [address] [place] [address] Lorri Keenan CCC-SMALL STOCK FACER [address] [place] [address] 10/28/2025 9:30 AM EST Office Visit [address] [address] Sergey Tyson MD [address] [place] [address] Lorri Keenan CCC-SMALL STOCK FACER [address] [place] [address] 11/05/2025 10:30 AM EST Office Visit [facility] 8 [place] [address] Sergey Tyson MD [address] [place] [address] Lorri Keenan CCC-SMALL STOCK FACER [address] [place] [address] 11/12/2025 10:30 AM EST Office Visit [address] [address] Sergey Tyson MD [address] [place] [address] Lorri Keenan CCC-SMALL STOCK FACER 8 [place] [address] 11/19/2025 9:30 AM EST Office Visit [facility] 8 [place] [address] Sergey Tyson MD [address] [place] [address] Lorri Keenan CCC-SMALL STOCK FACER 8 [place] [address] 12/10/2025 2:45 PM EST Office Visit [facility] [address] [place] [address] Unknown, Unknown, MD Murry, Karlos Martines MD [address] [place] [address] 04/28/2026 8:00 AM EDT Office Visit [facility] Internal Medicine 40 [place] [address] Sergey Tyson MD [address] [place] [address] 05/20/2026 9:00 AM EDT Office Visit [facility] 30 [place] [address] Apple Talavera MD [address] [place] [address] documented as of this encounter Visit Diagnoses Not on filedocumented in this encounter Additional Health Concerns Infection Onset Date Last Indicated Resolved Time CoV-Risk 05/07/2022 05/07/2022 05/18/2022 1:24 AM EDT Assessment Noted Time PHQ-2 Depression Total Score: 0 10/20/20 18 10:00 AM EST documented as of this encounter Care Teams Senior Accounting Specialist Relationship Specialty Start Date End Date Karlos Lyons MD [address] [address] [email or web address] PCP - General Internal Medicine 07/14/14 05/07/21 Karlos Lyons MD [address] [place] [address] [email or web address] PCP - General Internal Medicine 05/08/21 05/09/22 Sergey Tyson MD [address] [place] [address] [email or web address] PCP - General Internal Medicine 05/10/22 Karlos Lyons MD [address] [place] [address] [email or web address] Insurance Assigned Provider 02/23/17 03/02/23 Omar Rocha MD [address] [place] [address] [email or web address] Physical Medicine and Rehabilitation 05/08/21 Sagar Leung MD [address] [place] [address], [address] [place] [address] [email or web address] Obstetrics and Gynecology 05/08/21 Yefri Hilliard MD [address] [place] [address] Endocrinology 05/08/21 Karlos Murry MD [address] [place] [address] [email or web address] Gastroenterology 02/27/22 Apple Talavera MD [address] [place] [address] Primary Oncologist Medical Oncology 02/19/23 Sergey Tyson MD [address] [place] [address] Insurance Assigned Provider 02/29/24 Mena Mcwilliams, RN [address] [place] [address] [email or web address] Grain Elevator Operator 11/13/23 12/11/23 documented as of this encounter Additional Source Comments The information contained in this document represents components of the legal health record. It is not the complete legal health record.[facility]
--- OUTSIDE RECORDS SUMMARY | 2025-08-20 11:20 | XMS_ITS | Clinical Summary ---
Author Organization [facility] Address [address] [place] [address] Phone Care Team Providers Care Shipping And Receiving Assistant Name Role Phone Sergey Tyson MD Primary Care Provider [phone] Social History Tobacco Use Types Packs/Day Years Used Date Smoking Tobacco: Never Assessed Comments Unknown Sex and Gender Information Value Date Recorded Sex Assigned at Not on file Legal Sex Female 12:13 AM EST Gender Identity Not on file Sexual Orientation Not on file Plan of Treatment Health Maintenance Due Date Last Done Comments DTaP,Tdap,and Td Vaccines (1 - Tdap) 1969 Pneumococcal Vaccine: 50+ Ye ars (1 of 1 - PCV) 2000 Zoster Vaccines (1 of 2) 2000 Depression Screening 11/25/2024 Colorectal Cancer Screening: Colonoscopy 12/25/2024 Falls Risk Assessment 12/25/2024 Hepatitis C Screening 12/25/2024 Medicare Annual Wellness Visit 12/25/2024 Osteoporosis Screening (Bone Density Screening) 12/25/2024 Social Influencers of Health Screening 12/25/2024 RSV Immunization Adult Patie nts (1 - 1-dose 75+ series) 2025 COVID-19 Vaccine (1 - 2023-2 5 season) 2025 Influenza Vaccine (#1) 2025 HIB Vaccines Aged Out No longer [...] age to complete this topic Insurance MEDICARE [facility] Care Teams Shipping And Receiving Assistant Relationship Specialty Start Date End Date Sergey Tyson MD [address] [place] [address] PCP - General Internal Medicine 12/24/24
--- OUTSIDE RECORDS SUMMARY | 2025-08-20 11:20 | XMS_ITS | Encounter Summary ---
Author Organization [facility] Address [facility] [address] [place] [address] Phone Care Team Providers Care Clinical Rehab Liaison Name Role Phone Omar Rocha MD Unavailable Sagar Leung MD Unavailable Yefri Hilliard MD Unavailable Karlos Murry MD Unavailable Sergey Tyson MD Primary Care Provider [phone] Apple Talavera MD Unavailable [phone] Sergey Tyson MD Unavailable Encounter Details Date Type Department Care Team (Late st Contact Info) Description 05/12/2025 Ancillary Orders [facility]- [address] [phone] Apple Talavera MD [address] [place] [address] [phone] [email or web address] Abnormal mammogram (Primary Dx) Social History Tobacco Use Types [...] Description 09/02/2025 9:30 AM EDT Office Visit [facility] 8 [place] [address] Sergey Tyson MD [address] [place] [address] Lorri Keenan CCC-BI DATA ARCHITECT 8 [place] [address] 09/09/2025 8:30 AM EDT Office Visit [facility] 8 [place] [address] Sergey Tyson MD [address] [place] [address] Lorri Keenan CCC-BI DATA ARCHITECT 8 [place] [address] 09/16/2025 8:30 AM EDT Office Visit [facility] 8 [place] [address] Sergey Tyson MD [address] [place] [address] Lorri Keenan CCC-BI DATA ARCHITECT 8 [place] [address] 09/23/2025 9:30 AM EDT Office Visit [facility] 8 [place] [address] Sergey Tyson MD [address] [place] [address] [email or web address] Lorri Keenan CCC-BI DATA ARCHITECT 8 [place] [address] 10/01/2025 10:30 AM EST Office Visit [facility] 8 [place] [address] Sergey Tyson MD [address] [place] [address] [email or web address] Lorri Keenan CCC-BI DATA ARCHITECT 8 [place] [address] 10/08/2025 10:30 AM EST Office Visit [facility] 8 [place] [address] Sergey Tyson MD [address] [place] [address] [email or web address] Lorri Keenan CCC-BI DATA ARCHITECT 8 [place] [address] 10/11/2025 1:30 PM EST Office Visit [facility] Pulmonary, Allergy and Critical Care Medicine [address] [place] [address] Rj Leiva MD [address] [place] [address] [email or web address] 10/15/2025 10:30 AM EST Office Visit [facility] 8 [place] [address] Sergey Tyson MD [address] [place] [address] Lorri Keenan CCC-BI DATA ARCHITECT 8 [place] [address] 10/18/2025 8:30 AM EST Office Visit [facility] 8 [place] [address] Sergey Tyson MD [address] [place] [address] Lorri Keenan CCC-BI DATA ARCHITECT [address] [place] [address] 10/28/2025 9:30 AM EST Office Visit [facility] 8 [place] [address] Sergey Tyson MD [address] [place] [address] Lorri Keenan CCC-BI DATA ARCHITECT [address] [place] [address] 11/05/2025 10:30 AM EST Office Visit [facility] 8 [place] [address] Sergey Tyson MD [address] [place] [address] Lorri Keenan CCC-BI DATA ARCHITECT 8 [place] [address] 11/12/2025 10:30 AM EST Office Visit [facility] 8 [place] [address] Sergey Tyson MD [address] [place] [address] Lorri Keenan CCC-BI DATA ARCHITECT 8 [place] [address] 11/19/2025 9:30 AM EST Office Visit [facility] 8 [place] [address] Sergey Tyson MD 40 [place] [address] Lorri Keenan CCC-BI DATA ARCHITECT 8 [place] [address] 12/10/2025 2:45 PM EST Office Visit [facility] [address] [place] [address] Unknown, Unknown, MD Murry, Karlos Martines MD [address] [place] [address] 04/28/2026 8:00 AM EDT Office Visit [facility] Internal Medicine [address] [place] [address] Sergey Tyson MD [address] [place] [address] 05/20/2026 9:00 AM EDT Office Visit [facility] 30 [place] [address] Apple Talavera MD [address] [place] [phone] [email or web address] documented as of this encounter Results * BI US BREAST LIMITED (RIGHT) (06/10/2025 9:49 AM EDT) Anatomical Region Laterality Modality Breast Right, Breast Bilateral Right U ltrasound 06/10/2025 9:2 0 AM EDT Impressions 06/10/2025 9:51 AM EDT [...] the patient at time ofexamination. us Apple Talavera MD IMG MG EXAMS Final Result documented in this encounter Visit Diagnoses Diagnosis Abnormal mammogram- Primary Abnormal mammogram, unspecified Abnormal mammogram Abnormal mammogram, unspecified Abnormal mammogram Abnormal mammogram, unspecified documented in this encounter Additional Health Concerns Assessment Noted Time PHQ-9 Depression Total Score: 3 09/11/20 24 9:24 AM EDT PHQ-2 Depression Total Score: 0 04/07/20 25 12:34 PM EDT documented as of this encounter Care Teams Clinical Rehab Liaison Relationship Specialty Start Date End Date Sergey Tyson MD [address] [place] [address] PCP - General Internal Medicine 05/10/22 Omar Rocha MD [email or web address] Physical Medicine and Rehabilitation 05/08/21 Sagar Leung MD [address] [place] [address], [address] [place] [address] Obstetrics and Gynecology 05/08/21 Yefri Hilliard MD [address] [place] [address] Endocrinology 05/08/21 Karlos Murry MD [address] [place] [address] [email or web address] Gastroenterology 02/27/22 Apple Talavera MD [address] [place] [address] Primary Oncologist Medical Oncology 02/19/23 Sergey Tyson MD [address] [place] [address] [email or web address] Insurance Assigned Provider 02/29/24 documented as of this encounter Additional Source Comments The information contained in this document represents components of the legal health record. It is not the complete legal health record.[facility]
--- OUTSIDE RECORDS SUMMARY | 2025-08-20 11:20 | XMS_ITS | Encounter Summary ---
Author Organization [facility] Address [address] [place] [address] Care Team Providers Care Mica Paster Name Role Phone Sergey Tyson MD Primary Care Provider [phone] Encounter Details Date Type Department Care Team (Late st Contact Info) Description 12/24/2024 Lab Requisition [facility] - Main Lab [address] [facility] [place] [address] [facility] [facility] [address] [place] [address] Calculus of kidney Social History Tobacco Use [...] LAB CHEMISTRY METHOD 12/24/2024 7:29 PM EST [facility] Blood Venous blood specimen / Unknown 12/24/2024 2:15 PM EST 12/24/2024 6:35 PM EST [facility] [place] LAB BLOOD ORDERABLES Final Re sult Performing Organization Address City/[facility]/ZIP Co de Phone Number [facility] [address] [place] [address], [place] [phone] * Parathyroid hormone intact (12/24/2024 2:15 PM EST) PTH 36.6 18.5 - 88.0 pcg/mL LAB CHEMISTRY METHOD 12/24/2024 7:29 PM EST [facility] Blood Venous blood specimen / Unknown 12/24/2024 2:15 PM EST 12/24/2024 6:35 PM EST [facility] [place] LAB BLOOD ORDERABLES Final Re sult Performing Organization Address [facility]/ZIP Co de Phone Number [facility] [address] [place] [address], [place] [phone] documented in this encounter Visit Diagnoses Diagnosis Calculus of kidney documented in this encounter Care Teams Mica Paster Relationship Specialty Start Date End Date Sergey Tyson MD [address] [place] [address] PCP - General Internal Medicine 12/24/24 documented as of this encounter
--- OUTSIDE RECORDS SUMMARY | 2025-08-20 11:20 | XMS_ITS | Encounter Summary ---
Author Organization [facility] Address [facility] [employer] [facility] [address] [place] [address] Phone Care Team Providers Care Veterinary Pharmacologist Name Role Phone Omar Rocha MD Unavailable Sagar Leung MD Unavailable Yefri Hilliard MD Unavailable [phone] Karlos Murry MD Unavailable [phone] Sergey Tyson MD Primary Care Provider Apple Talavera MD Unavailable [phone] Sergey Tyson MD Unavailable Encounter Details Date Type Department Care Team (Late st Contact Info) Description 03/18/2024 Procedure Pass [facility] - [address] [place] [address] Social History Tobacco Use Types Packs/Day Years [...] Description 09/02/2025 9:30 AM EDT Office Visit [facility] Services [address] [place] [address] Sergey Tyson MD 40 [place] [address] Lorri Keenan CCC-PROPOSAL MANAGER WRITER 8 [place] [address] 09/09/2025 8:30 AM EDT Office Visit [facility] 8 [place] [address] Sergey Tyson MD [address] [place] [address] Lorri Keenan CCC-PROPOSAL MANAGER WRITER [address] [place] [address] 09/16/2025 8:30 AM EDT Office Visit [facility] 8 [place] [address] Sergey Tyson MD [address] [place] [address] Lorri Keenan CCC-PROPOSAL MANAGER WRITER 8 [place] [address] 09/23/2025 9:30 AM EDT Office Visit [facility] 8 [place] [address] Sergey Tyson MD [address] [place] [address] Lorri Keenan CCC-PROPOSAL MANAGER WRITER 8 [place] [address] 10/01/2025 10:30 AM EST Office Visit [facility] 8 [place] [address] Sergey Tyson MD [address] [place] [address] Lorri Keenan CCC-PROPOSAL MANAGER WRITER 8 [place] [address] 10/08/2025 10:30 AM EST Office Visit [facility] 8 [place] [address] Sergey Tyson MD [address] [place] [address] Lorri Keenan CCC-PROPOSAL MANAGER WRITER [address] [place] [address] 10/11/2025 1:30 PM EST Office Visit [facility] Pulmonary, Allergy and Critical Care Medicine [address] [place] [address] Rj Leiva MD [address] [place] [address] [email or web address] 10/15/2025 10:30 AM EST Office Visit [facility] 8 [place] [address] Sergey Tyson MD [address] [place] [address] Lorri Keenan CCC-PROPOSAL MANAGER WRITER [address] [place] [address] 10/18/2025 8:30 AM EST Office Visit [facility] 8 [place] [address] Sergey Tyson MD [address] [place] [address] Lorri Keenan CCC-PROPOSAL MANAGER WRITER 8 [place] [address] 10/28/2025 9:30 AM EST Office Visit [facility] [address] [place] [address] Sergey Tyson MD [address] [place] [address] Lorri Keenan CCC-PROPOSAL MANAGER WRITER 8 [place] [address] 11/05/2025 10:30 AM EST Office Visit [address] [place] [address] Sergey Tyson MD [address] [place] [address] Lorri Keenan CCC-PROPOSAL MANAGER WRITER [address] [place] [address] 11/12/2025 10:30 AM EST Office Visit [facility] [address] [place] [address] Sergey Tyson MD [address] [place] [address] Lorri Keenan CCC-PROPOSAL MANAGER WRITER [address] [place] [address] 11/19/2025 9:30 AM EST Office Visit [address] [place] [address] Sergey Tyson MD [address] [place] [address] Lorri Keenan CCC-PROPOSAL MANAGER WRITER 8 [place] [address] 12/10/2025 2:45 PM EST Office Visit [facility] G[facility]ology Clinic 10 [place] [address] Unknown, Unknown, Karlos Henning MD [address] [address] 04/28/2026 8:00 AM EDT Office Visit [facility] Internal Medicine 40 [place] [address] Sergey Tyson MD 40 [place] [address] 05/20/2026 9:00 AM EDT Office Visit [facility] 30 [place] [address] Apple Talavera MD [address] [place] [address] [email or web address] documented as of this encounter Visit Diagnoses Not on filedocumented in this encounter Additional Health Concerns Assessment Noted Time PHQ-9 Depression Total Score: 3 09/11/20 24 9:24 AM EDT PHQ-2 Depression Total Score: 0 04/07/20 25 12:34 PM EDT documented as of this encounter Care Teams Veterinary Pharmacologist Relationship Specialty Start Date End Date Sergey Tyson MD [address] [place] [address] PCP - General Internal Medicine 05/10/22 Omar Rocha MD [email or web address] Physical Medicine and Rehabilitation 05/08/21 Sagar Leung MD [address] [place] [address], [address] [place] [address] Obstetrics and Gynecology 05/08/21 Yefri Hilliard MD [address] [place] [address] Endocrinology 05/08/21 Karlos Murry MD [address] [place] [address] [email or web address] Gastroenterology 02/27/22 Apple Talavera MD 30 [place] [address] Primary Oncologist Medical Oncology 02/19/23 Sergey Tyson MD [address] [place] [address] [email or web address] Insurance Assigned Provider 02/29/24 documented as of this encounter Additional Source Comments The information contained in this document represents components of the legal health record. It is not the complete legal health record.[facility]
== END 2025-08-20 11:47 | disposition home or self-care (01) ==
LOC: HO.HGI 10:06
PROVIDERS: PCP Internal Medicine; Visit Provider Nurse Practitioner
DX: J32.9 Chronic sinusitis, unspecified (principal); R19.01 Right upper quadrant abdominal swelling, mass and lump; R71.8 Other abnormality of red blood cells
CPT/HCPCS: 99214

== ENCOUNTER → 2025-08-20 10:05 | Outpatient (BNVA) | payer MEDICARE, BC, SELFPAY | PROVIDERS: PCP Internal Medicine; Visit Provider Nurse Practitioner | DX: R19.01 Right upper quadrant abdominal swelling, mass and lump (principal); R71.8 Other abnormality of red blood cells; J32.9 Chronic sinusitis, unspecified | CPT/HCPCS: 99212 ==

== ENCOUNTER 2025-09-28 13:07 | Outpatient (REF) | payer MEDICARE, BC, SELFPAY ==
--- OUTSIDE RECORDS SUMMARY | 2025-09-23 08:30 | XMS_ITS | Encounter Summary ---
Author Organization [facility] Address [address] [place] [address] [address] [place] [address] Phone Care Team Providers Care Upsetter Helper Name Role Phone Omar Rocha MD Unavailable [phone] Sagar Leung MD Unavailable Yefri Hilliard MD Unavailable [phone] Karlos Murry MD Unavailable [phone] Sergey Tyson MD Primary Care Provider Apple Talavera MD Unavailable [phone] Sergey Tyson MD Unavailable Reason for Visit * Speech Therapy (Within 1 month) - Authorized Specialty Diagnoses / Procedures Referred By Jessica balbuena Referred To Contact Speech Pathology Diagnoses Gastroesophageal reflux disease without esophagitis Esophageal spasm Pharyngoesophageal dysphagia Sergey Tyson MD [address] [place] [address] Phone: tel: fax: mailto: [address] [address] Phone: tel: Referral ID Status Reason Start Date Expiration Date V isits Requested Visits Authorized [id number] Authorized 08/04/2025 08/04/2026 75 [id number] Encounter Details Date Type Department Care Team (Latest Contact Info) Description 09/23/2025 9:30 AM EDT Office Visit [facility] [address] [place] [address] Sergey Tyson MD [address] [place] [address] Lorri Keenan, CCC-COUPON AND BOND COLLECTION CLERK [address] [place] [address] [email or web address] Pharyngoesophageal dysphagia (Primary Dx) Social History Tobacco Use Types [...] as of this encounter Progress Notes * Lorri Keenan, [facility])-COUPON AND BOND COLLECTION CLERK - 09/23/2025 9:30 AM EDT Speech-Language Pathology Treatment Note Subject Line: Treatment Note Patient Name: Kaylyn Doan Date of : 1950 Referring MD: Sergey Tyson MD [address] [place] [address] Patient was seen for a Speech Pathology visit on 09/23/2025. Subjective Comments: Pt is in good spirits. Treatment Plan: GOAL (Short Term): 1. Pt will demonstrate understanding of swallow mechanics and COUPON AND BOND COLLECTION CLERK treatment plan as it relates to her specific swallow issues. 2. Pt will demonstrate understanding of swallow exercises and strategies for safety to Mod I/I level. 3. Pt will demonstrate safe swallow strategies with oral intake trials to Mod I /I level. 4. Pt will demonstrate swallow strengthening exercises to Mod I /I level of proficiency. 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 Patient Stated Goal: Better swallowing. PLAN Frequency and Duration: Patient will be seen 1 times per week for 12 weeks. Treatment to include: education on swallow mechanics and treatment plan Training of swallow safety strategies and exercises Written visual and verbal materials as needed. HEP Objective Information: 1. Pt will demonstrate understanding of swallow mechanics and COUPON AND BOND COLLECTION CLERK treatment plan as it relates to her specific swallow issues. : In depth review of swallow study results in tandem with use of a graphic representation of swalow mechanics (Follow the Swallow Book), was completed. Pt demonstrated understanding of all information presented. Pt has a medical background and therefore was able to grasp concepts fairly easily. 2. Pt will demonstrate understanding of swallow exercises and strategies for safety to Mod I/I level.: education only 3. Pt will demonstrate safe swallow strategies with oral intake trials to Mod I /I level.:Educationonly; discussed GERD management related to bed position. Pt to explore adjustable bed possibly, if Medicare might cover it. 4. Pt will demonstrate swallow strengthening exercises to Mod I /I level of proficiency. : Education only Assessment: Pt demonstrated good understanding of all presented educational material re: swallow mechanics. Training of CTAR exercise planned for next session. Plan: Continue with goals as per treatment plan. Lorri Keenan CCC-COUPON AND BOND COLLECTION CLERK documented in this encounter Plan of Treatment Upcoming Encounters Date Type Department Care Team (Late st Contact Info) Description 10/01/2025 10:30 AM EST Office Visit [facility] [address] [place] [address] Sergey Tyson MD [address] [place] [address] [email or web address] Lorri Keenan CCC-COUPON AND BOND COLLECTION CLERK [address] [place] [address] 10/08/2025 10:30 AM EST Office Visit [facility] [address] [place] [address] Sergey Tyson MD [address] [place] [address] Lorri Keenan CCC-COUPON AND BOND COLLECTION CLERK [address] [place] [address] 10/08/2025 2:00 PM EST Office Visit [facility] Pulmonary, Allergy and Critical Care Medicine [address] [place] [address] Rj Leiva MD [address] [place] [address] [email or web address] 10/15/2025 10:30 AM EST Office Visit [facility] [address] [place] [address] Sergey Tyson MD [address] [place] [address] Lorri Keenan CCC-COUPON AND BOND COLLECTION CLERK [address] [place] [address] 10/18/2025 8:30 AM EST Office Visit [facility] [address] [place] [address] Sergey Tyson MD [address] [place] [address] Lorri Keenan CCC-COUPON AND BOND COLLECTION CLERK [address] [place] [address] 10/28/2025 9:30 AM EST Office Visit [facility] [address] [place] [address] Sergey Tyson MD [address] [place] [address] Lorri Keenan CCC-COUPON AND BOND COLLECTION CLERK 8 [place] [address] 11/05/2025 10:30 AM EST Office Visit [facility] [address] [place] [address] Sergey Tyson MD [address] [place] [address] Lorri Keenan CCC-COUPON AND BOND COLLECTION CLERK 8 [place] [address] 11/19/2025 9:30 AM EST Office Visit [facility] [address] [place] [address] Sergey Tyson MD [address] [place] [address] Lorri Keenan CCC-COUPON AND BOND COLLECTION CLERK [address] [place] [address] 12/03/2025 11:30 AM EST Office Visit [facility] [address] [place] [address] Sergey Tyson MD [address] [place] [address] Lorri Keenan CCC-COUPON AND BOND COLLECTION CLERK 8 [place] [address] 12/10/2025 2:45 PM EST Office Visit [facility]ology [facility] [address] [place], [place] [id number] Unknown, Unknown, MD Murry, Karlos Martines MD [address] [address] [email or web address] 04/28/2026 8:00 AM EDT Office Visit [facility] Internal Medicine [address] [place] [address] Sergey Tyson MD [address] [place] [address] [email or web address] 05/20/2026 9:00 AM EDT Office Visit [facility] [address] [place] [address] Apple Talavera MD [address] [place] [address] [email or web address] documented as of this encounter Visit Diagnoses Diagnosis Pharyngoesophageal dysphagia- Primary Dysphagia, pharyngoesophageal phase documented in this encounter Additional Health Concerns Assessment Noted Time PHQ-9 Depression Total Score: 3 09/11/20 24 9:24 AM EDT PHQ-2 Depression Total Score: 0 04/07/20 25 12:34 PM EDT documented as of this encounter Care Teams Upsetter Helper Relationship Specialty Start Date End Date Sergey Tyson MD [address] [place] [address] [email or web address] PCP - General Internal Medicine 05/10/22 Omar Rocha MD [email or web address] 05/08/21 Sagar Leung MD [address] [place] [address], [facility] [address] [place] [address] [email or web address] Obstetrics and Gynecology 05/08/21 Yefri Hilliard MD [address] [place] [address] Endocrinology 05/08/21 Karlos Murry MD [address] [place] [address] Gastroenterology 02/27/22 Apple Talavera MD [address] [place] [address] Primary Oncologist Medical Oncology 02/19/23 Sergey Tyson MD [address] [place] [address] [email or web address] Insurance Assigned Provider 02/29/24 documented as of this encounter Additional Source Comments The information contained in this document represents components of the legal health record. It is not the complete legal health record.[facility]
[2025-09-28 13:18] LABS: MANUAL DIFF FLAG NO
[2025-09-28 13:22] LABS: Hematocrit 43.1 % (37.0-47.0); Hemoglobin 13.7 g/dl (12.0-16.0); Imm Gran Abs Auto 0.01 X10*3/uL (0.00-0.03); Imm Gran Pct Auto 0.2 % (0.0-0.4); Lymphocytes Absolute Auto 1.0 X10*3/uL (1.2-4.9); Mean Corpuscular HGB Conc 31.8 g/dl (31.0-35.0); Mean Corpuscular Hemoglobin 32.0 pg (27.0-33.0); Mean Corpuscular Volume 100.7 fL (80.0-98.0); NRBC Abs Auto 0.000 X10*3/uL (0.0-0.012); NRBC Pct Auto 0.0 /100WBC (0.0-0.2); Platelet Count 296 X10*3/uL (160-400); Red Blood Count 4.28 X10*6/uL (4.20-5.50); White Blood Count 4.9 X10*3/uL (4.8-10.8)
--- OUTSIDE RECORDS SUMMARY | 2025-09-28 15:58 | XMS_ITS | Encounter Summary ---
Author Organization [facility] Address [facility]ly [facility] [address] [place] [address] Phone Care Team Providers Care Program Evaluation Consultant Name Role Phone Omar Rocha MD Unavailable [phone] Sagar Leung MD Unavailable Yefri Hilliard MD Unavailable [phone] Karlos Murry MD Unavailable Sergey Tyson MD Primary Care Provider Apple Talavera MD Unavailable Sergey Tyson MD Unavailable Encounter Details Date Type Department Care Team (Latest Contact Info) Description 12/27/2023 Transcribe Orders Virtual Department [address] [place] [address] Karlos Murry MD [address] [place] [address] [phone] [email or web address] Weight loss (Primary Dx) Social History Tobacco [...] high school, GED, job training, learning the [place] language, technical skills, or developing parenting skills)? [...] Description 10/01/2025 10:30 AM EST Office Visit [facility] [address] [place] [address] Sergey Tyson MD [address] [place] [address] Lorri Keenan CCC-DOCUMENTATION ANALYST [address] [place] [address] 10/08/2025 10:30 AM EST Office Visit [facility] 8 [place] [address] Sergey Tyson MD [address] [place] [address] Lorri Keenan CCC-DOCUMENTATION ANALYST [address] [place] [address] 10/08/2025 2:00 PM EST Office Visit [facility] Pulmonary, Allergy and Critical Care Medicine [address] [place] [address] Rj Leiva MD [address] [place] [address] [email or web address] 10/15/2025 10:30 AM EST Office Visit [facility] [address] [place] [address] Sergey Tyson MD [address] [place] [address] Lorri Keenan CCC-DOCUMENTATION ANALYST [address] [place] [address] 10/18/2025 8:30 AM EST Office Visit [facility] [address] [place] [address] Sergey Tyson MD [address] [place] [address] Lorri Keenan CCC-DOCUMENTATION ANALYST 8 [place] [address] 10/28/2025 9:30 AM EST Office Visit [facility] 8 [place] [address] Sergey Tyson MD [address] [place] [address] Lorri Keenan CCC-DOCUMENTATION ANALYST [address] [place] [address] 11/05/2025 10:30 AM EST Office Visit [address] [address] Sergey Tyson MD [address] [place] [address] Lorri Keenan CCC-DOCUMENTATION ANALYST [address] [place] [address] 11/19/2025 9:30 AM EST Office Visit [facility] 8 [place] [address] Sergey Tyson MD [address] [place] [address] Lorri Keenan CCC-DOCUMENTATION ANALYST 8 [place] [address] 12/03/2025 11:30 AM EST Office Visit [address] [address] Sergey Tyson MD [address] [place] [address] Lorri Keenan, [facility]-DOCUMENTATION ANALYST 8 [place] [address] [email or web address] 12/10/2025 2:45 PM EST Office Visit [facility]ology Clinic [address] [place] [address] Unknown, Unknown, MD Murry, Karlos Martines MD [address] [address] [email or web address] 04/28/2026 8:00 AM EDT Office Visit [facility] Internal Medicine [address] [place] [address] Sergey Tyson MD [address] [place] [address] 05/20/2026 9:00 AM EDT Office Visit [facility] [address] [place] [address] Apple Talavera MD [address] [place] [address] [email or web address] documented as of this encounter Visit Diagnoses Diagnosis Weight loss- Primary Loss of weight documented in this encounter Additional Health Concerns Assessment Noted Time PHQ-2 Depression Total Score: 0 01/28/20 23 6:26 PM EST documented as of this encounter Care Teams Program Evaluation Consultant Relationship Specialty Start Date End Date Sergey Tyson MD [address] [place] [address] [email or web address] PCP - General Internal Medicine 05/10/22 Omar Rocha MD [email or web address] 05/08/21 Sagar Leung MD [address] [place] [address], [facility] [address] [place] [address] [email or web address] Obstetrics and Gynecology 05/08/21 Yefri Hilliard MD [address] [place] [address] Endocrinology 05/08/21 Karlos Murry MD [address] [place] [address] [email or web address] Gastroenterology 02/27/22 Apple Talavera MD [address] [place] [address] [email or web address] Primary Oncologist Medical Oncology 02/19/23 Sergey Tyson MD [address] [place] [address] [email or web address] Insurance Assigned Provider 02/29/24 documented as of this encounter Additional Source Comments The information contained in this document represents components of the legal health record. It is not the complete legal health record.[facility]
--- OUTSIDE RECORDS SUMMARY | 2025-09-28 15:58 | XMS_ITS | Encounter Summary ---
Author Organization [facility] Address [address] [place] [address] [address] [place] [address] Phone Care Team Providers Care Dance Historian Name Role Phone Karlos Lyons MD Primary Care Provider Karlos Lyons MD Unavailable [phone] Omar Rocha MD Unavailable [phone] Sagar Leung MD Unavailable Karlos Lyons MD Primary Care Provider [phone] Yefri Hilliard MD Unavailable [phone] Karlos Murry MD Unavailable [phone] Sergey Tyson MD Primary Care Provider Apple Talavera MD Unavailable [phone] Sergey Tyson MD Unavailable Mena Mcwilliams RN Unavailable [phone] Encounter Details Date Type Department Care Team (Late st Contact Info) Description 08/06/2020 Procedure Pass [facility], [address] [id number] Social History Tobacco Use Types Packs/Day Years [...] Description 10/01/2025 10:30 AM EST Office Visit [address] [address] Sergey Tyson MD [address] [place] [address] Lorri Keenan CCC-ELECTROPHYSIOLOGY NURSE PRACTITIONER [address] [place] [address] 10/08/2025 10:30 AM EST Office Visit [address] [address] Sergey Tyson MD [address] [place] [address] Lorri Keenan CCC-ELECTROPHYSIOLOGY NURSE PRACTITIONER [address] [place] [address] 10/08/2025 2:00 PM EST Office Visit [facility] Pulmonary, Allergy and Critical Care Medicine [address] [place] [address] Rj Leiva MD [address] [place] [address] [email or web address] 10/15/2025 10:30 AM EST Office Visit [address] [address] Sergey Tyson MD [address] [place] [address] Lorri Keenan CCC-ELECTROPHYSIOLOGY NURSE PRACTITIONER [address] [place] [address] 10/18/2025 8:30 AM EST Office Visit [address] [address] Sergey Tyson MD [address] [place] [address] Lorri Keenan CCC-ELECTROPHYSIOLOGY NURSE PRACTITIONER [address] [place] [address] 10/28/2025 9:30 AM EST Office Visit [address] [address] Sergey Tyson MD [address] [place] [address] Lorri Keenan CCC-ELECTROPHYSIOLOGY NURSE PRACTITIONER [address] [place] [address] 11/05/2025 10:30 AM EST Office Visit [address] [address] Sergey Tyson MD [address] [place] [address] Lorri Keenan CCC-ELECTROPHYSIOLOGY NURSE PRACTITIONER [address] [place] [address] 11/19/2025 9:30 AM EST Office Visit [address] [address] Sergey Tyson MD 40 [place] [address] Lorri Keenan CCC-ELECTROPHYSIOLOGY NURSE PRACTITIONER 8 [place] [address] 12/03/2025 11:30 AM EST Office Visit [facility] 8 [place] [address] Sergey Tyson MD [address] [place] [address] Lorri Keenan CCC-ELECTROPHYSIOLOGY NURSE PRACTITIONER 8 [place] [address] 12/10/2025 2:45 PM EST Office Visit [facility] Gastroenterology Clinic [address] [place] [address] Unknown, Unknown, MD Murry, Karlos Martines MD [address] [place] [address] 04/28/2026 8:00 AM EDT Office Visit [facility] Internal Medicine [address] [place] [address] Sergey Tyson MD [address] [place] [address] 05/20/2026 9:00 AM EDT Office Visit [facility] at [address] [address] Apple Talavera MD [address] [place] [address] documented as of this encounter Visit Diagnoses Not on filedocumented in this encounter Additional Health Concerns Infection Onset Date Last Indicated Resolved Time CoV-Risk 05/07/2022 05/07/2022 05/18/2022 1:24 AM EDT Assessment Noted Time PHQ-2 Depression Total Score: 0 04/28/20 12:48 PM EDT documented as of this encounter Care Teams Dance Historian Relationship Specialty Start Date End Date Karlos Lyons MD [address] [address] [email or web address] PCP - General Internal Medicine 07/14/14 05/07/21 Karlos Lyons MD [address] [place] [address] [email or web address] PCP - General Internal Medicine 05/08/21 05/09/22 Sergey Tyson MD [address] [place] [address] [email or web address] PCP - General Internal Medicine 05/10/22 Karlos Lyons MD [address] [place] [address] [email or web address] Insurance Assigned Provider 02/23/17 03/02/23 Omar Rocha MD [address] [place] [address] [email or web address] 05/08/21 Sagar Leung MD [address] [facility], [address] [place] [address] [email or web address] Obstetrics and Gynecology 05/08/21 Yefri Hilliard MD [address] [place] [address] Endocrinology 05/08/21 Karlos Murry MD [address] [place] [address] [email or web address] Gastroenterology 02/27/22 Apple Talavera MD [address] [place] [address] [email or web address] Primary Oncologist Medical Oncology 02/19/23 Sergey Tyson MD [address] [place] [address] [email or web address] Insurance Assigned Provider 02/29/24 Mena Mcwilliams, RN [address] [place] [address] [email or web address] [facility] Excellence Consultant 11/13/23 12/11/23 documented as of this encounter Additional Source Comments The information contained in this document represents components of the legal health record. It is not the complete legal health record.[facility]
--- OUTSIDE RECORDS SUMMARY | 2025-09-28 15:58 | XMS_ITS | Encounter Summary ---
Author Organization [facility] Address [address] [place] [address] 985 [place] [address] Phone Care Team Providers Care Department Secretary Name Role Phone Karlos Lyons MD Primary Care Provider Karlos Lyons MD Unavailable [phone] Omar Rocha MD Unavailable [phone] Sagar Leung MD Unavailable Karlos Lyons MD Primary Care Provider + [phone] Yefri Hilliard MD Unavailable [phone] Karlos Murry MD Unavailable [phone] Sergey Tyson MD Primary Care Provider Apple Talavera MD Unavailable [phone] Sergey Tyson MD Unavailable Mena Mcwilliams RN Unavailable [phone] Encounter Details Date Type Department Care Team (Late st Contact Info) Description 04/27/2021 Procedure Pass OR Admitting Dept - Virtual Department 30 [place], [place] [phone] Social History Tobacco Use Types Packs/Day Years [...] Description 10/01/2025 10:30 AM EST Office Visit [address] [address] Sergey Tyson MD [address] [place] [address] Lorri Keenan CCC-ADMISSIONS MANAGER RN [address] [place] [address] 10/08/2025 10:30 AM EST Office Visit [address] [address] Sergey Tyson MD [address] [place] [address] Lorri Keenan CCC-ADMISSIONS MANAGER RN [address] [place] [address] 20[address] 10/08/2025 2:00 PM EST Office Visit [facility] Pul[facility], Allergy and Critical Care Medicine [address] [place] [address] Rj Leiva MD [address] [place] [address] [email or web address] 10/15/2025 10:30 AM EST Office Visit [address] [address] Sergey Tyson MD [address] [place] [address] Lorir Keenan CCC-ADMISSIONS MANAGER RN [address] [place] [address] 10/18/2025 8:30 AM EST Office Visit [address] [address] Sergey Tyson MD [address] [place] [address] Lorri Keenan CCC-ADMISSIONS MANAGER RN [address] [place] [address] 288[address] 10/28/2025 9:30 AM EST Office Visit [address] [address] Sergey Tyson MD [address] [place] [address] Lorri Keenan CCC-ADMISSIONS MANAGER RN [address] [place] [address] 67[address] 11/05/2025 10:30 AM EST Office Visit [address] [address] Sergey Tyson MD [address] [place] [address] Lorri Keenan CCC-ADMISSIONS MANAGER RN [address] [place] [address] 15780 11/19/2025 9:30 AM EST Office Visit [address] [address] Sergey Tyson MD 40 [place] [address] Lorri Keenan CCC-ADMISSIONS MANAGER RN 8 [place] [address] 12/03/2025 11:30 AM EST Office Visit [facility] 8 [place] [address] Sergey Tyson MD [address] [place] [address] Lorri Keenan CCC-ADMISSIONS MANAGER RN 8 [place] [address] 12/10/2025 2:45 PM EST Office Visit [facility] [address] [place] [address] Unknown, Unknown, MD Murry, Karlos Martines MD [address] [place] [address] 04/28/2026 8:00 AM EDT Office Visit [facility] Internal Medicine [address] [place] [address] Sergey Tyson MD [address] [place] [address] 05/20/2026 9:00 AM EDT Office Visit [facility] at [address] [address] Apple Talavera MD [address] [place] [address] documented as of this encounter Visit Diagnoses Not on filedocumented in this encounter Additional Health Concerns Infection Onset Date Last Indicated Resolved Time CoV-Risk 05/07/2022 05/07/2022 05/18/2022 1:24 AM EDT Assessment Noted Time PHQ-2 Depression Total Score: 0 04/28/20 12:48 PM EDT documented as of this encounter Care Teams Department Secretary Relationship Specialty Start Date End Date Karlos Lyons MD [address] [address] [email or web address] PCP - General Internal Medicine 07/14/14 05/07/21 Karlos Lyons MD [address] [place] [address] [email or web address] PCP - General Internal Medicine 05/08/21 05/09/22 Sergey Tyson MD [address] [place] [address] [email or web address] PCP - General Internal Medicine 05/10/22 Karlos Lyons MD [address] [place] [address] [email or web address] Insurance Assigned Provider 02/23/17 03/02/23 Omar Rocha MD [address] [place] [address] [email or web address] Physical Medicine and Rehabilitation 05/08/21 Sagar Leung MD [address] [facility], [address] [place] [address] [email or web address] Obstetrics and Gynecology 05/08/21 Yefri Hilliard MD [address] [place] [address] Endocrinology 05/08/21 Karlos Murry MD [address] [place] [address] [email or web address] Gastroenterology 02/27/22 Apple Talavera MD [address] [place] [email or web address] Primary Oncologist Medical Oncology 02/19/23 Sergey Tyson MD [address] [place] [address] [email or web address] Insurance Assigned Provider 02/29/24 Mena Mcwilliams, RN [address] [place] [address] [email or web address] [facility] Pecan Cleaner 11/13/23 12/11/23 documented as of this encounter Additional Source Comments The information contained in this document represents components of the legal health record. It is not the complete legal health record.[facility]
--- OUTSIDE RECORDS SUMMARY | 2025-09-28 15:58 | XMS_ITS | Encounter Summary ---
Author Organization [facility] Address [address] [place] [address] 985 [place] [address] Phone Care Team Providers Care Car Repairer Name Role Phone Karlos Lyons MD Primary Care Provider Karlos Lyons MD Unavailable [phone] Omar Rocha MD Unavailable [phone] Sagar Leung MD Unavailable Karlos Lyons MD Primary Care Provider + [phone] Yefri Hilliard MD Unavailable [phone] Karlos Murry MD Unavailable [phone] Sergey Tyson MD Primary Care Provider Apple Talavera MD Unavailable [phone] Sergey Tyson MD Unavailable Mena Mcwilliams RN Unavailable [phone] Encounter Details Date Type Department Care Team (Late st Contact Info) Description 04/20/2021 Procedure Pass [facility] Endoscopy Admitting Dept Virtual Department 30 [place] [address] Social History Tobacco Use Types [...] Description 10/01/2025 10:30 AM EST Office Visit [address] [address] Sergey Tyson MD [address] [place] [address] Lorri Keenan CCC-BUILD MASTER [address] [place] [address] 10/08/2025 10:30 AM EST Office Visit [address] [address] Sergey Tyson MD [address] [place] [address] Lorri Keenan CCC-BUILD MASTER [address] [place] [address] 10/08/2025 2:00 PM EST Office Visit [facility], Allergy and Critical Care Medicine [address] [place] [address] Rj Leiva MD [address] [place] [address] [email or web address] 10/15/2025 10:30 AM EST Office Visit [address] [address] Sergey Tyson MD [address] [place] [address] Lorri Keenan CCC-BUILD MASTER [address] [place] [address] 10/18/2025 8:30 AM EST Office Visit [address] [address] Sergey Tyson MD [address] [place] [address] 16[address] Lorri Keenan CCC-BUILD MASTER [address] [place] [address] 10/28/2025 9:30 AM EST Office Visit [address] [address] Sergey Tyson MD [address] [place] [address] Lorri Keenan CCC-BUILD MASTER [address] [place] [address] 11/05/2025 10:30 AM EST Office Visit [address] [address] Sergey Tyson MD [address] [place] [address] 270[address] Lorri Keenan CCC-BUILD MASTER [address] [place] [address] 11/19/2025 9:30 AM EST Office Visit [address] [address] Sergey Tyson MD 40 [place] [address] Lorri Keenan CCC-BUILD MASTER 8 [place] [address] 12/03/2025 11:30 AM EST Office Visit [facility] 8 [place] [address] Sergey Tyson MD [address] [place] [address] Lorri Keenan CCC-BUILD MASTER 8 [place] [address] 12/10/2025 2:45 PM EST Office Visit [facility] G[facility]enterology Clinic [address] [place] [address] Unknown, Unknown, MD Murry, Karlos Martines MD [address] [place] [address] 04/28/2026 8:00 AM EDT Office Visit [facility] Internal Medicine [address] [place] [address] Sergey Tyson MD [address] [place] [address] 05/20/2026 9:00 AM EDT Office Visit [facility] at [address] [address] Apple Talavera MD [address] [place] [address] documented as of this encounter Visit Diagnoses Not on filedocumented in this encounter Additional Health Concerns Infection Onset Date Last Indicated Resolved Time CoV-Risk 05/07/2022 05/07/2022 05/18/2022 1:24 AM EDT Assessment Noted Time PHQ-2 Depression Total Score: 0 04/28/20 12:48 PM EDT documented as of this encounter Care Teams Car Repairer Relationship Specialty Start Date End Date Karlos Lyons MD [address] [address] [email or web address] PCP - General Internal Medicine 07/14/14 05/07/21 Karlos Lyons MD [address] [place] [address] [email or web address] PCP - General Internal Medicine 05/08/21 05/09/22 Sergey Tyson MD [address] [place] [address] [email or web address] PCP - General Internal Medicine 05/10/22 Karlos Lyons MD [address] [place] [address] [email or web address] Insurance Assigned Provider 02/23/17 03/02/23 Omar Rocha MD [address] [place] [address] [email or web address] Physical Medicine and Rehabilitation 05/08/21 Sagar Leung MD 22 [facility], [address] [place] [address] [email or web address] Obstetrics and Gynecology 05/08/21 Yefri Hilliard MD [address] [place] [address] Endocrinology 05/08/21 Karlos Murry MD [address] [place] [address] [email or web address] Gastroenterology 02/27/22 Apple Talavera MD [address] [place] [address] [email or web address] Primary Oncologist Medical Oncology 02/19/23 Sergey Tyson MD [address] [place] [address] [email or web address] Insurance Assigned Provider 02/29/24 Mena Mcwilliams, RN [address] [place] [address] [email or web address] [facility] Pewter Finisher 11/13/23 12/11/23 documented as of this encounter Additional Source Comments The information contained in this document represents components of the legal health record. It is not the complete legal health record.[facility]
--- OUTSIDE RECORDS SUMMARY | 2025-09-28 15:58 | XMS_ITS | Encounter Summary ---
Author Organization [facility] Address [address] [place] [address] [address] [place] [address] Phone Care Team Providers Care Multifold Operator Name Role Phone Karlos Lyons MD Primary Care Provider Karlos Lyons MD Unavailable [phone] Omar Rocha MD Unavailable [phone] Sagar Leung MD Unavailable Karlos Lyons MD Primary Care Provider + [phone] Yefri Hilliard MD Unavailable [phone] Karlos Murry MD Unavailable [phone] Sergey Tyson MD Primary Care Provider [phone] Apple Talavera MD Unavailable [phone] Sergey Tyson MD Unavailable Mena Mcwilliams RN Unavailable [phone] Encounter Details Date Type Department Care Team (Latest Contact Info) Description 01/27/2018 Prep for Procedure [facility] at [place] [facility] [address] [place] [address] [phone] Apple Talavera MD 30 [place] [address] [email or web address] Malignant neoplasm of overlapping sites of left [...] Description 10/01/2025 10:30 AM EST Office Visit [facility] 8 [place] [address] Sergey Tyson MD 40 [place] [address] Lorri Keenan CCC-COPY MESSENGER 8 [place] [address] 10/08/2025 10:30 AM EST Office Visit [facility] 8 [place] [address] Sergey Tyson MD 40 [place] [address] Lorri Keenan CCC-COPY MESSENGER 8 [place] [address] 10/08/2025 2:00 PM EST Office Visit [facility] Pulmonary, Allergy and Critical Care Medicine 10 [place] [address] Rj Leiva MD 30 [place] [address] [email or web address] 10/15/2025 10:30 AM EST Office Visit [facility] [address] [place] [address] Sergey Tyson MD [address] [place] [address] Lorri Keenan CCC-COPY MESSENGER 8 [place] [address] 10/18/2025 8:30 AM EST Office Visit [address] [place] [address] Sergey Tyson MD [address] [place] [address] Lorri Keenan CCC-COPY MESSENGER [address] [place] [address] 10/28/2025 9:30 AM EST Office Visit [facility] [address] [place] [address] Sergey Tyson MD [address] [place] [address] Lorri Keenan CCC-COPY MESSENGER 8 [place] [address] 11/05/2025 10:30 AM EST Office Visit [address] [address] Sergey Tyson MD [address] [place] [address] Lorri Keenan CCC-COPY MESSENGER 8 [place] [address] 11/19/2025 9:30 AM EST Office Visit [facility] 8 [place] [address] Sergey Tyson MD [address] [place] [address] Lorri Keenan CCC-COPY MESSENGER 8 [place] [address] 12/03/2025 11:30 AM EST Office Visit [facility] 8 [place] [address] Sergey Tyson MD [address] [place] [address] Lorri Keenan CCC-COPY MESSENGER 8 [place] [address] 12/10/2025 2:45 PM EST Office Visit [facility]ology Clinic [address] [place] [address] Unknown, Huey, MD Murry, Karlos Martines MD [address] [place] [address] 04/28/2026 8:00 AM EDT Office Visit [facility] Internal Medicine [address] [place] [address] Sergey Tyson MD [address] [place] [address] 05/20/2026 9:00 AM EDT Office Visit [facility] at [address] [address] Apple Talavera MD [address] [place] [address] [email or web address] documented as of this encounter Visit Diagnoses Diagnosis Malignant neoplasm of overlapping sites of left breast in female, estrogen receptor positive documented in this encounter Additional Health Concerns Infection Onset Date Last Indicated Resolved Time CoV-Risk 05/07/2022 05/07/2022 05/18/2022 1:24 AM EDT documented as of this encounter Care Teams Multifold Operator Relationship Specialty Start Date End Date Karlos Lyons MD [address] [place] [address] [email or web address] PCP - General Internal Medicine 07/14/14 05/07/21 Karlos Lyons MD [address] [place] [address] [email or web address] PCP - General Internal Medicine 05/08/21 05/09/22 Sergey Tyson MD [address] [place] [address] [email or web address] PCP - General Internal Medicine 05/10/22 Karlos Lyons MD [address] [place] [address] [email or web address] Insurance Assigned Provider 02/23/17 03/02/23 Omar Rocha MD [address] [place] [address] [email or web address] 05/08/21 Sagar Leung MD [address] [place] [address], [address] [place] [address] Obstetrics and Gynecology 05/08/21 Yefri Hilliard MD [address] [place] [address] Endocrinology 05/08/21 Karlos Murry MD [address] [place] [address] [email or web address] Gastroenterology 02/27/22 Apple Talavera MD [address] [place] [address] [email or web address] Primary Oncologist Medical Oncology 02/19/23 Sergey Tyson MD [address] [place] [address] [email or web address] Insurance Assigned Provider 02/29/24 Mena Mcwilliams RN [address] [place] [address] [email or web address] [facility] Neurology Technician 11/13/23 12/11/23 documented as of this encounter Additional Source Comments The information contained in this document represents components of the legal health record. It is not the complete legal health record.[facility]
--- OUTSIDE RECORDS SUMMARY | 2025-09-28 15:58 | XMS_ITS | Encounter Summary ---
Author Organization [facility] Address [facility] [address] [place] [address] Phone Care Team Providers Care Commercial Airplane Pilot Name Role Phone Karlos Lyons MD Unavailable Omar Rocha MD Unavailable Sagar Leung MD Unavailable Yefri Hilliard MD Unavailable Karlos Murry MD Unavailable [phone] Sergey Tyson MD Primary Care Provider Apple Talavera MD Unavailable [phone] Sergey Tyson MD Unavailable Mena Mcwilliams RN Unavailable [phone] Encounter Details Date Type Department Care Team (Late st Contact Info) Description 09/13/2022 Procedure Pass [facility] Endoscopy Admitting Dept Virtual Department 30 [place], [place] [phone] Social History Tobacco Use Types Packs/Day Years [...] high school, GED, job training, learning the Sudanese language, technical skills, or developing parenting skills)? [...] Description 10/01/2025 10:30 AM EST Office Visit [facility] 8 [place] [address] Sergey Tyson MD 40 [place] [address] Lorri Keenan, CCC-RESEARCH INTERVIEWER 8 [place] [address] 10/08/2025 10:30 AM EST Office Visit [facility] [address] [place] [address] Sergey Tyson MD [address] [place] [address] Lorri Keenan CCC-RESEARCH INTERVIEWER 8 [place] [address] 10/08/2025 2:00 PM EST Office Visit [facility] Pulmonary, Allergy and Critical Care Medicine [address] [place] [address] Rj Leiva MD [address] [place] [address] [email or web address] 10/15/2025 10:30 AM EST Office Visit [facility] [address] [place] [address] Sergey Tyson MD [address] [place] [address] Lorri Keenan CCC-RESEARCH INTERVIEWER 8 [place] [address] 10/18/2025 8:30 AM EST Office Visit [facility] [address] [place] [address] Sergey Tyson MD [address] [place] [address] Lorri Keenan CCC-RESEARCH INTERVIEWER [address] [place] [address] 10/28/2025 9:30 AM EST Office Visit [facility] [address] [place] [address] Sergey Tyson MD [address] [place] [address] Lorri Keenan CCC-RESEARCH INTERVIEWER [address] [place] [address] 11/05/2025 10:30 AM EST Office Visit [facility] 8 [place] [address] Sergey Tyson MD [address] [place] [address] Lorri Keenan CCC-RESEARCH INTERVIEWER 8 [place] [address] 11/19/2025 9:30 AM EST Office Visit [facility] 8 [place] [address] Sergey Tyson MD [address] [place] [address] Lorri Keenan CCC-RESEARCH INTERVIEWER [address] [place] [address] 12/03/2025 11:30 AM EST Office Visit [facility] 8 [place] [address] Sergey Tyson MD [address] [place] [address] Lorri Keenan CCC-RESEARCH INTERVIEWER 8 [place] [address] 12/10/2025 2:45 PM EST Office Visit [facility] Gastroenterology Clinic 10 [place], [place] [phone] Unknown, Unknown, MD Murry, Karlos Martines MD [address] [address] [email or web address] 04/28/2026 8:00 AM EDT Office Visit [facility] Internal Medicine 40 [place] [address] Sergey Tyson MD 40 [place] [address] [email or web address] 05/20/2026 9:00 AM EDT Office Visit [facility] at [facility] 30 [place] [address] Apple Talavera MD [address] [place] [address] [email or web address] documented as of this encounter Visit Diagnoses Not on filedocumented in this encounter Additional Health Concerns Assessment Noted Time PHQ-2 Depression Total Score: 0 09/08/20 9:02 AM EDT documented as of this encounter Care Teams Commercial Airplane Pilot Relationship Specialty Start Date End Date Sergey Tyson MD 40 [place] [address] [email or web address] PCP - General Internal Medicine 05/10/22 Karlos Lyons MD [address] [place] [address] [email or web address] Insurance Assigned Provider 02/23/17 03/02/23 Omar Rocha MD [address] [place] [address] [email or web address] 05/08/21 Sagar Leung MD [address] [place], [place] [address], [place] [address] Obstetrics and Gynecology 05/08/21 Yefri Hilliard MD [address] [place] [address] Endocrinology 05/08/21 Karlos Murry MD [address] [place] [address] Gastroenterology 02/27/22 Apple Talavera MD [address] [place] [address] Primary Oncologist Medical Oncology 02/19/23 Sergey Tyson MD [address] [place] [address] Insurance Assigned Provider 02/29/24 Mena Mcwilliams, RN [address] [place] [address] [email or web address] [facility] Extractor Puller 11/13/23 12/11/23 documented as of this encounter Additional Source Comments The information contained in this document represents components of the legal health record. It is not the complete legal health record.[facility]
--- OUTSIDE RECORDS SUMMARY | 2025-09-28 15:58 | XMS_ITS | Encounter Summary ---
Author Organization [facility] Address [facility] [facility] [address] [place] [address] Phone Care Team Providers Care Sack Cleaner Name Role Phone Karlos Lyons MD Unavailable Omar Rocha MD Unavailable Sagar Leung MD Unavailable Karlos Lyons MD Primary Care Provider Yefri Hilliard MD Unavailable Karlos Murry MD Unavailable [phone] Sergey Tyson MD Primary Care Provider Apple Talavera MD Unavailable [phone] Sergey Tyson MD Unavailable Mena Mcwilliams RN Unavailable [phone] Encounter Details Date Type Department Care Team (Late st Contact Info) Description 02/27/2022 Procedure Pass [address] [address] Social History Tobacco Use Types Packs/Day Years [...] Description 10/01/2025 10:30 AM EST Office Visit [facility] 8 [place] [address] Sergey Tyson MD [address] [place] [address] [email or web address] Lorri Keenan CCC-RELOCATION DIRECTOR 8 [place] [address] 10/08/2025 10:30 AM EST Office Visit [facility] 8 [place] [address] Sergey Tyson MD [address] [place] [address] Lorri Keenan [facility]-RELOCATION DIRECTOR 8 [place] [address] 10/08/2025 2:00 PM EST Office Visit [facility] Pulmonary, Allergy and Critical Care Medicine [address] [place] [address] Rj Leiva MD [address] [place] [address] [email or web address] 10/15/2025 10:30 AM EST Office Visit [facility] 8 [place] [address] Sergey Tyson MD [address] [place] [address] Lorri Keenan CCC-RELOCATION DIRECTOR 8 [place] [address] 10/18/2025 8:30 AM EST Office Visit [facility] 8 [place] [address] Sergey Tyson MD [address] [place] [address] Lorri Keenan CCC-RELOCATION DIRECTOR [address] [place] [address] 10/28/2025 9:30 AM EST Office Visit [address] [address] Sergey Tyson MD [address] [place] [address] Lorri Keenan CCC-RELOCATION DIRECTOR [address] [place] [address] 11/05/2025 10:30 AM EST Office Visit [facility] 8 [place] [address] Sergey Tyson MD [address] [place] [address] Lorri Keenan CCC-RELOCATION DIRECTOR [address] [place] [address] 11/19/2025 9:30 AM EST Office Visit [address] [address] Sergey Tyson MD [address] [place] [address] Lorri Keenan CCC-RELOCATION DIRECTOR 8 [place] [address] 12/03/2025 11:30 AM EST Office Visit [facility] 8 [place] [address] Sergey Tyson MD 40 [place] [address] Lorri Keenan CCC-RELOCATION DIRECTOR 8 [place] [address] 12/10/2025 2:45 PM EST Office Visit [facility] [address] [place] [address] Unknown, Unknown, MD Murry, Karlos Martines MD [address] [place] [address] 04/28/2026 8:00 AM EDT Office Visit [facility] Internal Medicine 40 [place] [address] Sergey Tyson MD [address] [place] [address] 05/20/2026 9:00 AM EDT Office Visit [facility] 30 [place] [address] Apple Talavera MD [address] [place] [address] documented as of this encounter Visit Diagnoses Not on filedocumented in this encounter Additional Health Concerns Infection Onset Date Last Indicated Resolved Time CoV-Risk 05/07/2022 05/07/2022 05/18/2022 1:24 AM EDT Assessment Noted Time PHQ-2 Depression Total Score: 0 01/28/20 23 6:26 PM EST documented as of this encounter Care Teams Sack Cleaner Relationship Specialty Start Date End Date Karlos Lyons MD [address] [address] [email or web address] PCP - General Internal Medicine 05/08/21 05/09/22 Sergey Tyson MD [address] [place] [address] [email or web address] PCP - General Internal Medicine 05/10/22 Karlos Lyons MD [address] [place] [address] [email or web address] Insurance Assigned Provider 02/23/17 03/02/23 Omar Rocha MD [address] [place] [address] [email or web address] 05/08/21 Sagar Leung MD [address] [place] [address] 102 [place] [address] [email or web address] Obstetrics and Gynecology 05/08/21 Yerfi Hilliard MD [address] [place] [address] Endocrinology 05/08/21 Karlos Murry MD [address] [place] [address] [email or web address] Gastroenterology 02/27/22 Apple Talavera MD [address] [place] [address] [email or web address] Primary Oncologist Medical Oncology 02/19/23 Sergey Tyson MD [address] [place] [address] [email or web address] Insurance Assigned Provider 02/29/24 Mena Mcwilliams, RN [address] [place] [address] [phone] [email or web address] [facility] Department Head 11/13/23 12/11/23 documented as of this encounter Additional Source Comments The information contained in this document represents components of the legal health record. It is not the complete legal health record.[facility]
--- OUTSIDE RECORDS SUMMARY | 2025-09-28 15:58 | XMS_ITS | Encounter Summary ---
Author Organization [facility] Address [facility] [employer] [facility] [address] [place] [address] Phone Care Team Providers Care Material Reclaimer Name Role Phone Karlos Lyons MD Unavailable Omar Rocha MD Unavailable [phone] Sagar Leung MD Unavailable Karlos Lyons MD Primary Care Provider [phone] Yefri Hilliard MD Unavailable Karlos Murry MD Unavailable [phone] Sergey Tyson MD Primary Care Provider [phone] Apple Talavera MD Unavailable [phone] Sergey Tyson MD Unavailable Mena Mcwilliams RN Unavailable [phone] Encounter Details Date Type Department Care Team (Late st Contact Info) Description 05/07/2022 Procedure Pass [facility], Ct Scan - [address] [address] Social History Tobacco Use Types Packs/Day Years [...] high school, GED, job training, learning the Iraqi language, technical skills, or developing parenting skills)? [...] 11:25 AM EDT Freddy Hart, RUSS * [place] Suicide Severity Rating Scale (Screener/Recent Self-Report) Question [...] Description 10/01/2025 10:30 AM EST Office Visit [facility] 8 [place] [address] Sergey Tyson MD [address] [place] [address] Lorri Keenan CCC-REAL ESTATE CLOSER [address] [place] [address] 10/08/2025 10:30 AM EST Office Visit [facility] 8 [place] [address] Sergey Tyson MD [address] [place] [address] Lorri Keenan CCC-REAL ESTATE CLOSER [address] [place] [address] 10/08/2025 2:00 PM EST Office Visit [facility] Pulmonary, Allergy and Critical Care Medicine [address] [place] [address] Rj Leiva MD [address] [place] [address] [email or web address] 10/15/2025 10:30 AM EST Office Visit [facility] 8 [place] [address] Sergey Tyson MD [address] [place] [address] Lorri Keenan CCC-REAL ESTATE CLOSER 8 [place] [address] 10/18/2025 8:30 AM EST Office Visit [facility] 8 [place] [address] Sergey Tyson MD [address] [place] [address] Lorri Keenan CCC-REAL ESTATE CLOSER 8 [place] [address] 10/28/2025 9:30 AM EST Office Visit [address] [address] Sergey Tyson MD [address] [place] [address] Lorri Keenan CCC-REAL ESTATE CLOSER [address] [place] [address] 11/05/2025 10:30 AM EST Office Visit [facility] 8 [place] [address] Sergey Tyson MD [address] [place] [address] Lorri Keenan CCC-REAL ESTATE CLOSER 8 [place] [address] 11/19/2025 9:30 AM EST Office Visit [address] [place] [address] Sergey Tyson MD [address] [place] [address] Lorri Keenan CCC-REAL ESTATE CLOSER 8 [place] [address] 12/03/2025 11:30 AM EST Office Visit [facility] 8 [place] [address] Sergey Tyson MD 40 [place] [address] Lorri Keenan, [facility]-REAL ESTATE CLOSER 8 [place] [address] 12/10/2025 2:45 PM EST Office Visit [facility] Clinic [address] [place] [address] Unknown, Unknown, Karlos Henning MD [address] [place] [address] 04/28/2026 8:00 AM EDT Office Visit [facility] Internal Medicine 40 [place] [address] Sergey Tyson MD [address] [place] [address] 05/20/2026 9:00 AM EDT Office Visit [facility] 30 [place] [address] Apple Talavera MD [address] [place] [address] documented as of this encounter Visit Diagnoses Not on filedocumented in this encounter Additional Health Concerns Infection Onset Date Last Indicated Resolved Time CoV-Risk 05/07/2022 05/07/2022 05/18/2022 1:24 AM EDT Assessment Noted Time PHQ-2 Depression Total Score: 2 05/05/20 10:17 AM EDT documented as of this encounter Care Teams Material Reclaimer Relationship Specialty Start Date End Date Karlos Lyons MD [address] [address] [email or web address] PCP - General Internal Medicine 05/08/21 05/09/22 Sergey Tyson MD [address] [place] [address] [email or web address] PCP - General Internal Medicine 05/10/22 Karlos Lyons MD [address] [place] [address] [email or web address] Insurance Assigned Provider 02/23/17 03/02/23 Omar Rocha MD [address] [place] [address] [email or web address] Physical Medicine and Rehabilitation 05/08/21 Sagar Leung MD [address] [place] [address] [email or web address] Obstetrics and Gynecology 05/08/21 Yefri Hilliard MD [address] [place] [address] Endocrinology 05/08/21 Karlos Murry MD [address] [place] [address] [email or web address] Gastroenterology 02/27/22 Apple Talavera MD [address] [place] [address] [email or web address] Primary Oncologist Medical Oncology 02/19/23 Sergey Tyson MD [address] [place] [address] [email or web address] Insurance Assigned Provider 02/29/24 Mena Mcwilliams, RN [address] [place] [address] [email or web address] [facility] Development Engineer 11/13/23 12/11/23 documented as of this encounter Additional Source Comments The information contained in this document represents components of the legal health record. It is not the complete legal health record.[facility]
--- OUTSIDE RECORDS SUMMARY | 2025-09-28 15:58 | XMS_ITS | Encounter Summary ---
Author Organization [facility] Address [facility] [employer] [facility] [address] [place] [address] Phone Care Team Providers Care Garnett Fixer Name Role Phone Karlos Lyons MD Unavailable Omar Rocha MD Unavailable [phone] Sagar Leung MD Unavailable Yefri Hilliard MD Unavailable Karlos Murry MD Unavailable [phone] Sergey Tyson MD Primary Care Provider Apple Talavera MD Unavailable [phone] Sergey Tyson MD Unavailable Mena Mcwilliams RN Unavailable [phone] Encounter Details Date Type Department Care Team (Late st Contact Info) Description 05/31/2022 Procedure Pass OR Admitting Dept - Virtual Department 30 [place] [address] Social History Tobacco Use Types Packs/Day Years [...] Description 10/01/2025 10:30 AM EST Office Visit [facility] 8 [place] [address] Sergey Tyson MD 40 [place] [address] Lorri Keenan, CCC-CLOTH FRAMER 8 [place] [address] 10/08/2025 10:30 AM EST Office Visit [facility] 8 [place] [address] Sergey Tyson MD [address] [place] [address] Lorri Keenan CCC-CLOTH FRAMER 8 [place] [address] 10/08/2025 2:00 PM EST Office Visit [facility] Pulmonary, Allergy and Critical Care Medicine [address] [place] [address] Rj Leiva MD [address] [place] [address] [email or web address] 10/15/2025 10:30 AM EST Office Visit [facility] 8 [place] [address] Sergey Tyson MD [address] [place] [address] Lorri Keenan CCC-CLOTH FRAMER 8 [place] [address] 10/18/2025 8:30 AM EST Office Visit [facility] 8 [place] [address] Sergey Tyson MD [address] [place] [address] Lorri Keenan CCC-CLOTH FRAMER [address] [place] [address] 10/28/2025 9:30 AM EST Office Visit [facility] 8 [place] [address] Sergey Tyson MD [address] [place] [address] Lorri Keenan CCC-CLOTH FRAMER [address] [place] [address] 11/05/2025 10:30 AM EST Office Visit [facility] 8 [place] [address] Sergey Tyson MD [address] [place] [address] Lorri Keenan CCC-CLOTH FRAMER 8 [place] [address] 11/19/2025 9:30 AM EST Office Visit [facility] 8 [place] [address] Sergey Tyson MD [address] [place] [address] Lorri Keenan CCC-CLOTH FRAMER [address] [place] [address] 12/03/2025 11:30 AM EST Office Visit [facility] 8 [place] [address] Sergey Tyson MD [address] [place] [address] Lorri Keenan CCC-CLOTH FRAMER 8 [place] [address] 12/10/2025 2:45 PM EST Office Visit [facility] 10 [place], [place] [phone] Unknown, Unknown, MD Murry, Karlos Martines MD [address] [address] [email or web address] 04/28/2026 8:00 AM EDT Office Visit [facility] Internal Medicine 40 [place] [address] Seregy Tyson MD 40 [place] [address] [email or web address] 05/20/2026 9:00 AM EDT Office Visit [facility] 30 [place] [address] Apple Talavera MD [address] [place] [address] [email or web address] documented as of this encounter Visit Diagnoses Not on filedocumented in this encounter Additional Health Concerns Assessment Noted Time PHQ-2 Depression Total Score: 2 05/05/20 22 10:17 AM EDT documented as of this encounter Care Teams Garnett Fixer Relationship Specialty Start Date End Date Sergey Tyson MD 40 [place] [address] [email or web address] PCP - General Internal Medicine 05/10/22 Karlos Lyons MD [address] [place] [address] [email or web address] Insurance Assigned Provider 02/23/17 03/02/23 Omar Rocha MD [address] [place] [address] [email or web address] Medicine [email or web address] 05/08/21 Sagar Leung MD [address] [place], [place] [address], [place] [address] Obstetrics and Gynecology 05/08/21 Yefri Hilliard MD [address] [place] [address] Endocrinology 05/08/21 Karlos Murry MD [address] [place] [address] Gastroenterology 02/27/22 Apple Talavera MD [address] [place] [email or web address] Primary Oncologist Medical Oncology 02/19/23 Sergey Tyson MD [address] [place] [address] Insurance Assigned Provider 02/29/24 Mena Mciwlliams, RN [address] [place] [address] [email or web address] [facility] Clerical Order Filler 11/13/23 12/11/23 documented as of this encounter Additional Source Comments The information contained in this document represents components of the legal health record. It is not the complete legal health record.[facility]
--- OUTSIDE RECORDS SUMMARY | 2025-09-28 15:58 | XMS_ITS | Encounter Summary ---
Author Organization [facility] Address [facility] [employer] [facility] [address] [place] [address] Phone Care Team Providers Care Credentialing Coordinator Name Role Phone Karlos Lyons MD Unavailable Omar Rocha MD Unavailable Sagar Leung MD Unavailable Karlos Lyons MD Primary Care Provider Yefri Hilliard MD Unavailable Karlos Murry MD Unavailable [phone] Sergey Tyson MD Primary Care Provider [phone] Apple Talavera MD Unavailable [phone] Sergey Tyson MD Unavailable Mena Mcwilliams RN Unavailable [phone] Encounter Details Date Type Department Care Team (Late st Contact Info) Description 05/25/2021 Procedure Pass OR Admitting Dept - Virtual Department [address] [place] [address] Social History Tobacco Use Types Packs/Day Years [...] Description 10/01/2025 10:30 AM EST Office Visit [facility] 8 [place] [address] Sergey Tyson MD [address] [place] [address] [email or web address] Lorri Keenan [facility] 8 [place] [address] 10/08/2025 10:30 AM EST Office Visit [facility] 8 [place] [address] Sregey Tyson MD [address] [place] [address] Lorri Keenan [facility] 8 [place] [address] 10/08/2025 2:00 PM EST Office Visit [facility] Pulmonary, Allergy and Critical Care Medicine 10 [place] [address] Rj Leiva MD [address] [place] [address] [email or web address] 10/15/2025 10:30 AM EST Office Visit [facility] 8 [place] [address] Sergey Tyson MD [address] [place] [address] Lorri Keenan CCC-LEATHER TOOLER [address] [place] [address] 10/18/2025 8:30 AM EST Office Visit [facility] 8 [place] [address] Sergey Tyson MD [address] [place] [address] Lorri Keenan CCC-LEATHER TOOLER [address] [place] [address] 10/28/2025 9:30 AM EST Office Visit [address] [address] Sergey Tyson MD [address] [place] [address] Lorri Keenan CCC-LEATHER TOOLER [address] [place] [address] 11/05/2025 10:30 AM EST Office Visit [facility] 8 [place] [address] Sergey Tyson MD [address] [place] [address] Lorri Keenan CCC-LEATHER TOOLER [address] [place] [address] 11/19/2025 9:30 AM EST Office Visit [facility] 8 [place] [address] Sergey Tyson MD [address] [place] [address] Lorri Keenan CCC-LEATHER TOOLER 8 [place] [address] 12/03/2025 11:30 AM EST Office Visit [facility] Rehabilitation Services 8 [place] [address] Sergey Tyson MD [address] [place] [address] Lorri Keenan CCC-LEATHER TOOLER 8 [place] [address] 12/10/2025 2:45 PM EST Office Visit [facility] G[facility]ology Clinic [address] [place] [address] Unknown, Unknown, MD Murry, Karlos Martines MD [address] [place] [address] 04/28/2026 8:00 AM EDT Office Visit [facility] Medical [facility] Internal Medicine [address] [place] [address] Sergey Tyson MD [address] [place] [address] 05/20/2026 9:00 AM EDT Office Visit [facility] 30 [place] [address] Apple Talavera MD [address] [place] [email or web address] documented as of this encounter Visit Diagnoses Not on filedocumented in this encounter Additional Health Concerns Infection Onset Date Last Indicated Resolved Time CoV-Risk 05/07/2022 05/07/2022 05/18/2022 1:24 AM EDT Assessment Noted Time PHQ-2 Depression Total Score: 0 05/05/20 21 9:23 PM EDT documented as of this encounter Care Teams Credentialing Coordinator Relationship Specialty Start Date End Date Karlos Lyons MD [address] [address] [email or web address] PCP - General Internal Medicine 05/08/21 05/09/22 Sergey Tyson MD [address] [place] [address] [email or web address] PCP - General Internal Medicine 05/10/22 Karlos Lyons MD [address] [place] [address] [email or web address] Insurance Assigned Provider 02/23/17 03/02/23 Omar Rocha MD [address] [place] [address] [email or web address] Medicine and [email or web address] 05/08/21 Sagar Leung MD [address] [place] [address] 102 [place] [address] [email or web address] Obstetrics and Gynecology 05/08/21 Yefri Hilliard MD [address] [place] [address] Endocrinology 05/08/21 Karlos Murry MD [address] [place] [address] [email or web address] Gastroenterology 02/27/22 Apple Talavera MD [address] [place] [address] [email or web address] Primary Oncologist Medical Oncology 02/19/23 Sergey Tyson MD [address] [place] [address] [email or web address] Insurance Assigned Provider 02/29/24 Mena Mcwilliams, RN [address] [place] [address] [phone] [email or web address] [facility] [employer] Systems Engineer 11/13/23 12/11/23 documented as of this encounter Additional Source Comments The information contained in this document represents components of the legal health record. It is not the complete legal health record.[facility]
--- OUTSIDE RECORDS SUMMARY | 2025-09-28 15:58 | XMS_ITS | Encounter Summary ---
Author Organization [facility] Address Formerly [facility] [address] [place] [address] Phone Care Team Providers Care Medical Record Transcriber Name Role Phone Omar Rocha MD Unavailable Sagar Leung MD Unavailable Yefri Hilliard MD Unavailable [phone] Karlos Murry MD Unavailable [phone] Sergey Tyson MD Primary Care Provider Apple Talavera MD Unavailable [phone] Sergey Tyson MD Unavailable Encounter Details Date Type Department Care Team (Late st Contact Info) Description 05/12/2025 Procedure Pass [address] [address] Social History Tobacco Use Types Packs/Day Years [...] Description 10/01/2025 10:30 AM EST Office Visit [address] [address] Sergey Tyson MD [address] [place] [address] Lorri Keenan CCC-SKIP MINER BLASTING [address] [place] [address] 10/08/2025 10:30 AM EST Office Visit [address] [address] Sergey Tyson MD [address] [place] [address] Lorri Keenan CCC-SKIP MINER BLASTING [address] [place] [address] 28[address] 10/08/2025 2:00 PM EST Office Visit [facility] Pulmonary, Allergy and Critical Care Medicine [address] [place] [address] Rj Leiva MD [address] [place] [address] [email or web address] 10/15/2025 10:30 AM EST Office Visit [address] [address] Sergey Tyson MD [address] [place] [address] Lorri Keenan CCC-SKIP MINER BLASTING [address] [place] [address] 10/18/2025 8:30 AM EST Office Visit [address] [place] [address] Sergey Tyson MD [address] [place] [address] Lorri Keenan CCC-SKIP MINER BLASTING [address] [place] [address] 10/28/2025 9:30 AM EST Office Visit [address] [address] Sergey Tyson MD [address] [place] [address] Lorri Keenan CCC-SKIP MINER BLASTING [address] [place] [address] 11/05/2025 10:30 AM EST Office Visit [address] [address] Sergey Tyson MD [address] [place] [address] Lorri Keenan CCC-SKIP MINER BLASTING [address] [place] [address] 11/19/2025 9:30 AM EST Office Visit [facility] [address] [place] [address] Sergey Tyson MD [address] [place] [address] Lorri Keenan CCC-SKIP MINER BLASTING 8 [place] [address] 12/03/2025 11:30 AM EST Office Visit [facility] Rehabilitation Services 8 [place] [address] Sergey Tyson MD [address] [place] [address] Lorri Keenan, [facility]3]-SKIP MINER BLASTING 8 [place] [address] 12/10/2025 2:45 PM EST Office Visit [facility] [address] [place] [address] Unknown, Unknown, MD Murry, Karlos Martines MD [address] [place] [address] 04/28/2026 8:00 AM EDT Office Visit [facility] Internal Medicine 40 [place] [address] Sergey Tyson MD [address] [place] [address] 05/20/2026 9:00 AM EDT Office Visit [facility] 30 [place] [address] Apple Talavera MD [address] [place] [address] documented as of this encounter Visit Diagnoses Not on filedocumented in this encounter Additional Health Concerns Assessment Noted Time PHQ-9 Depression Total Score: 3 09/11/20 24 9:24 AM EDT PHQ-2 Depression Total Score: 0 04/07/20 25 12:34 PM EDT documented as of this encounter Care Teams Medical Record Transcriber Relationship Specialty Start Date End Date Sergey Tyson MD 40 [place] [address] PCP - General Internal Medicine 05/10/22 Omar Rocha MD [email or web address] Physical Medicine and Rehabilitation 05/08/21 Sagar Leung MD [address] [place] [address] 102 [place] [address] Obstetrics and Gynecology 05/08/21 Yefri Hilliard MD [address] [place] [address] Endocrinology 05/08/21 Karlos Murry MD [address] [place] [address] Gastroenterology 02/27/22 Apple Talavera MD [address] [place] [address] Primary Oncologist Medical Oncology 02/19/23 Sergey Tyson MD 40 [place] [address] Insurance Assigned Provider 02/29/24 documented as of this encounter Additional Source Comments The information contained in this document represents components of the legal health record. It is not the complete legal health record.[facility]
--- OUTSIDE RECORDS SUMMARY | 2025-09-28 15:59 | XMS_ITS | Encounter Summary ---
Author Organization [facility] Address [facility] [address] [place] [address] Phone Care Team Providers Care Web Site Manager Name Role Phone Omar Rocha MD Unavailable Sagar Leung MD Unavailable Yefri Hilliard MD Unavailable [phone] Karlos Murry MD Unavailable [phone] Sergey Tyson MD Primary Care Provider [phone] Apple Talavera MD Unavailable [phone] Sergey Tyson MD Unavailable Encounter Details Date Type Department Care Team (Late st Contact Info) Description 10/30/2024 Procedure Pass [facility], [facility] - [address] [address] Social History Tobacco Use Types Packs/Day Years [...] high school, GED, job training, learning the Niuean language, technical skills, or developing parenting skills)? [...] Description 10/01/2025 10:30 AM EST Office Visit [address] [address] Sergey Tyson MD [address] [place] [address] Lorri Keenan CCC-IT SUPPORT ANALYST [address] [place] [address] 10/08/2025 10:30 AM EST Office Visit [address] [address] Sergey Tyson MD [address] [place] [address] Lorri Keenan CCC-IT SUPPORT ANALYST [address] [place] [address] 10/08/2025 2:00 PM EST Office Visit [facility] Pulmonary, Allergy and Critical Care Medicine [address] [place] [address] Rj Leiva MD [address] [place] [address] [email or web address] 10/15/2025 10:30 AM EST Office Visit [address] [address] Sergey Tyson MD [address] [place] [address] Lorri Keenan CCC-IT SUPPORT ANALYST [address] [place] [address] 10/18/2025 8:30 AM EST Office Visit [facility] [address] [place] [address] Sergey Tyson MD [address] [place] [address] Lorri Keenan CCC-IT SUPPORT ANALYST 8 [place] [address] 10/28/2025 9:30 AM EST Office Visit [address] [address] Sergey Tyson MD [address] [place] [address] Lorri Keenan CCC-IT SUPPORT ANALYST [address] [place] [address] 11/05/2025 10:30 AM EST Office Visit [address] [address] Sergey Tyson MD [address] [place] [address] Lorri Keenan CCC-IT SUPPORT ANALYST [address] [place] [address] 11/19/2025 9:30 AM EST Office Visit [facility] 8 [place] [address] Sergey Tyson MD [address] [place] [address] Lorri Keenan CCC-IT SUPPORT ANALYST 8 [place] [address] 12/03/2025 11:30 AM EST Office Visit [facility] Rehabilitation Services 8 [place] [address] Sergey Tyson MD 40 [place] [address] Lorri Keenan, CCC-IT SUPPORT ANALYST 8 [place] [address] 12/10/2025 2:45 PM EST Office Visit [facility] Gastroenterology Clinic 10 [place] [address] Unknown, Unknown, MD Murry, Karlos Martines MD [address] [address] 04/28/2026 8:00 AM EDT Office Visit [facility] Internal Medicine 40 [place] [address] Sergey Tyson MD 40 [place], [place] [phone] 05/20/2026 9:00 AM EDT Office Visit [facility] 30 [place] [address] Apple Talavera MD [address] [place] [address] [email or web address] documented as of this encounter Visit Diagnoses Not on filedocumented in this encounter Additional Health Concerns Assessment Noted Time PHQ-9 Depression Total Score: 3 09/11/20 9:24 AM EDT PHQ-2 Depression Total Score: 1 09/11/20 9:24 AM EDT documented as of this encounter Care Teams Web Site Manager Relationship Specialty Start Date End Date Sergey Tyson MD 40 [place], [place] [phone] PCP - General Internal Medicine 05/10/22 Omar Rocha MD [email or web address] Physical Medicine and Rehabilitation 05/08/21 Sagar Leung MD [address] [place] [address] 102 [place] [address] Obstetrics and Gynecology 05/08/21 Yefri Hilliard MD [address] [place] [address] Endocrinology 05/08/21 Karlos Murry MD [address] [place] [address] Gastroenterology 02/27/22 Apple Talavera MD [address] [place] [address] Primary Oncologist Medical Oncology 02/19/23 Sergey Tyson MD [address] [place] [address] [email or web address] Insurance Assigned Provider 02/29/24 documented as of this encounter Additional Source Comments The information contained in this document represents components of the legal health record. It is not the complete legal health record.[facility]
--- OUTSIDE RECORDS SUMMARY | 2025-09-28 15:59 | XMS_ITS | Encounter Summary ---
Author Organization [facility] Address [address] [place] [address] [address] [place] [address] Phone Care Team Providers Care Motor Vehicle Representative Name Role Phone Omar Rocha MD Unavailable [phone] Sagar Leung MD Unavailable Yefri Hilliard MD Unavailable [phone] Karlos Murry MD Unavailable [phone] Sergey Tyson MD Primary Care Provider Apple Talavera MD Unavailable [phone] Sergey Tyson MD Unavailable Reason for Referral * Speech Therapy (Within 1 month) - Authorized Specialty Diagnoses / Procedures Referred By Jessica balbuena Referred To Contact Speech Pathology Diagnoses Gastroesophageal reflux disease without esophagitis Esophageal spasm Pharyngoesophageal dysphagia Sergey Tyson MD 40 [place] [address] Phone: tel: fax: mailto: [address] [address] Phone: tel: Referral ID Status Reason Start Date Expiration Date V isits Requested Visits Authorized [id number] Authorized 08/04/2025 08/04/2026 75 75 Reason for [...] (Late st Contact Info) Description 08/04/2025 Telephone [facility] Rehabilitation Services [address] [place] [address] Sergey Tyson MD 40 [place] [address] [email or web address] Request for updated speech order for patient [...] Visit [facility] 8 [place] [address] Sergey Tyson MD [address] [place] [address] Lorri Keenan CCC-HAND TUBE BENDER 8 [place] [address] 10/08/2025 10:30 AM EST Office Visit [facility] 8 [place] [address] Sergey Tyson MD [address] [place] [address] Lorri Keenan CCC-HAND TUBE BENDER [address] [place] [address] 10/08/2025 2:00 PM EST Office Visit [facility] Pulmonary, Allergy and Critical Care Medicine [address] [place] [address] Rj Leiva MD [address] [place] [address] [email or web address] 10/15/2025 10:30 AM EST Office Visit [facility] [address] [place] [address] Sergey Tyson MD [address] [place] [address] Lorri Keenan CCC-HAND TUBE BENDER [address] [place] [address] 10/18/2025 8:30 AM EST Office Visit [facility] [address] [place] [address] Sergey Tyson MD [address] [place] [address] Lorri Keenan CCC-HAND TUBE BENDER [address] [place] [address] 10/28/2025 9:30 AM EST Office Visit [address] [address] Sergey Tyson MD [address] [place] [address] Lorri Keenan CCC-HAND TUBE BENDER [address] [place] [address] 11/05/2025 10:30 AM EST Office Visit [address] [address] Sergey Tyson MD [address] [place] [address] Lorri Keenan CCC-HAND TUBE BENDER [address] [place] [address] 11/19/2025 9:30 AM EST Office Visit [facility] 8 [place] [address] Sergey Tyson MD [address] [place] [address] Lorri Keenan CCC-HAND TUBE BENDER [address] [place] [address] 12/03/2025 11:30 AM EST Office Visit [address] [place] [address] Sergey Tyson MD [address] [place] [address] Lorri Keenan, VICTOR MANUEL-HAND TUBE BENDER 8 [place] [address] 12/10/2025 2:45 PM EST Office Visit [facility] Gastroenterology Clinic 10 [place] [address] Unknown, Unknown, Karlos Henning MD [address] [address] 04/28/2026 8:00 AM EDT Office Visit [facility] Internal Medicine 40 [place] [address] Sergey Tyson MD 40 [place] [address] 05/20/2026 9:00 AM EDT Office Visit [facility] 30 [place] [address] Apple Talavera MD 30 [place] [address] [email or web address] Scheduled Referrals Name Type Priority Associated Diagnoses Order Schedule Ambulatory referral to [facility] Speech Language Pathology Outpatient Referral Routine Gastroesophageal [...] as of this encounter Care Teams Motor Vehicle Representative Relationship Specialty Start Date End Date Sergey Tyson MD 40 [place] [address] PCP - General Internal Medicine 05/10/22 Omar Rocha MD [email or web address] Physical Medicine and Rehabilitation 05/08/21 Sagar Leung MD [address] [place] [address] 102 [place] [address] [email or web address] Obstetrics and Gynecology 05/08/21 Yefri Hilliard MD [address] [place] [address] Endocrinology 05/08/21 Karlos Murry MD [address] [place] [address] Gastroenterology 02/27/22 Apple Talavera MD [address] [place] [address] [email or web address] Primary Oncologist Medical Oncology 02/19/23 Sergey Tyson MD 40 [place] [address] Insurance Assigned Provider 02/29/24 documented as of this encounter Additional Source Comments The information contained in this document represents components of the legal health record. It is not the complete legal health record.[facility]
--- OUTSIDE RECORDS SUMMARY | 2025-09-28 15:59 | XMS_ITS | Encounter Summary ---
Author Organization [facility] Address [facility] [employer] [address] [place] [address] Phone Care Team Providers Care Pot Fisher Name Role Phone Karlos Lyons MD Unavailable [phone] Omar Rocha MD Unavailable Sagar Leung MD Unavailable Karlos Lyons MD Primary Care Provider Yefri Hilliard MD Unavailable Karlos Murry MD Unavailable [phone] Sergey Tyson MD Primary Care Provider Apple Talavera MD Unavailable [phone] Sergey Tyson MD Unavailable Mena Mcwilliams RN Unavailable [phone] Encounter Details Date Type Department Care Team (Late st Contact Info) Description 02/22/2022 Procedure Pass [facility], [address] [address] Social History Tobacco Use Types Packs/Day Years [...] Description 10/01/2025 10:30 AM EST Office Visit [facility] 8 [place] [address] Sergey Tyson MD [address] [place] [address] [email or web address] Lorri Keenan CCC-LABORER ELECTROPLATING 8 [place] [address] 10/08/2025 10:30 AM EST Office Visit [facility] 8 [place] [address] Sergey Tyson MD [address] [place] [address] Lorri Keenan [facility]-LABORER ELECTROPLATING 8 [place] [address] 10/08/2025 2:00 PM EST Office Visit [facility] Pulmonary, Allergy and Critical Care Medicine [address] [place] [address] Rj Leiva MD [address] [place] [address] [email or web address] 10/15/2025 10:30 AM EST Office Visit [facility] [address] [place] [address] Sergey Tyson MD [address] [place] [address] Lorri Keenan CCC-LABORER ELECTROPLATING 8 [place] [address] 10/18/2025 8:30 AM EST Office Visit [facility] 8 [place] [address] Sergey Tyson MD [address] [place] [address] Lorri Keenan CCC-LABORER ELECTROPLATING [address] [place] [address] 10/28/2025 9:30 AM EST Office Visit [address] [address] Sergey Tyson MD [address] [place] [address] Lorri Keenan CCC-LABORER ELECTROPLATING [address] [place] [address] 11/05/2025 10:30 AM EST Office Visit [facility] 8 [place] [address] Sergey Tyson MD [address] [place] [address] Lorri Keenan CCC-LABORER ELECTROPLATING [address] [place] [address] 11/19/2025 9:30 AM EST Office Visit [address] [address] Sergey Tyson MD [address] [place] [address] Lorri Keenan CCC-LABORER ELECTROPLATING 8 [place] [address] 12/03/2025 11:30 AM EST Office Visit [facility] Rehabilitation Services 8 [place] [address] Sergey Tyson MD 40 [place] [address] Lorri Keenan CCC-LABORER ELECTROPLATING 8 [place] [address] 12/10/2025 2:45 PM EST Office Visit [facility] Gastroenterology Clinic [address] [place] [address] Unknown, Unknown, MD Murry, Karlos Martines MD [address] [place] [address] 04/28/2026 8:00 AM EDT Office Visit [facility] Internal Medicine 40 [place] [address] Sergey Tyson MD [address] [place] [address] 05/20/2026 9:00 AM EDT Office Visit [facility] at [facility] 30 [place] [address] Apple Talavera MD [address] [place] [address] documented as of this encounter Visit Diagnoses Not on filedocumented in this encounter Additional Health Concerns Infection Onset Date Last Indicated Resolved Time CoV-Risk 05/07/2022 05/07/2022 05/18/2022 1:24 AM EDT Assessment Noted Time PHQ-2 Depression Total Score: 0 05/05/20 21 9:23 PM EDT documented as of this encounter Care Teams Pot Fisher Relationship Specialty Start Date End Date Karlos Lyons MD [address] [address] [email or web address] PCP - General Internal Medicine 05/08/21 05/09/22 Sergey Tyson MD [address] [place] [address] [email or web address] PCP - General Internal Medicine 05/10/22 Karlos Lyons MD [address] [place] [address] [email or web address] Insurance Assigned Provider 02/23/17 03/02/23 Omar Rocha MD [address] [place] [address] [email or web address] Physical Medicine and Rehabilitation 05/08/21 Sagar Leung MD [address] [place] [address] [email or web address] Obstetrics and Gynecology 05/08/21 Yefri Hilliard MD [address] [place] [address] Endocrinology 05/08/21 Karlos Murry MD [address] [place] [address] [email or web address] Gastroenterology 02/27/22 Apple Talavera MD [address] [place] [email or web address] Primary Oncologist Medical Oncology 02/19/23 Sergey Tyson MD [address] [place] [address] [email or web address] Insurance Assigned Provider 02/29/24 Mena Mcwilliams, RN [address] [place] [address] [phone] [email or web address] [facility] Cross Tie Cutter 11/13/23 12/11/23 documented as of this encounter Additional Source Comments The information contained in this document represents components of the legal health record. It is not the complete legal health record.[facility]
--- OUTSIDE RECORDS SUMMARY | 2025-09-28 15:59 | XMS_ITS | Encounter Summary ---
Author Organization [facility] Address Formerly [facility] [address] [place] [address] Phone Care Team Providers Care Global Sales Director Name Role Phone Karlos Lyons MD Unavailable [phone] Omar Rocha MD Unavailable Sagar Leung MD Unavailable Karlos Lyons MD Primary Care Provider [phone] Yefri Hilliard MD Unavailable Karlos Murry MD Unavailable [phone] Sergey Tyson MD Primary Care Provider Apple Talavera MD Unavailable [phone] Sergey Tyson MD Unavailable Mena Mcwilliams RN Unavailable Encounter Details Date Type Department Care Team (Latest Contact Info) Description 05/08/2021 Transcribe Orders Virtual Department 30 [place], [place] [id number] Omar Rocha MD [address] [place] [address] [email or web address] Left wrist pain (Primary Dx) Social History [...] Description 10/01/2025 10:30 AM EST Office Visit [facility] 8 [place] [address] Sergey Tyson MD [address] [place] [address] Lorri Keenan CCC-CONFERENCE ASSISTANT 8 [place] [address] 10/08/2025 10:30 AM EST Office Visit [facility] 8 [place] [address] Sergey Tyson MD [address] [place] [address] Lorri Keenan CCC-CONFERENCE ASSISTANT 8 [place] [address] 10/08/2025 2:00 PM EST Office Visit [facility] Pul[facility], Allergy and Critical Care Medicine 10 [place] [address] Rj Leiva MD [address] [place] [address] [email or web address] 10/15/2025 10:30 AM EST Office Visit [facility] [address] [place] [address] Sergey Tyson MD [address] [place] [address] Lorri Keenan CCC-CONFERENCE ASSISTANT 8 [place] [address] 10/18/2025 8:30 AM EST Office Visit [facility] [address] [place] [address] Sergey Tyson MD [address] [place] [address] Lorri Keenan CCC-CONFERENCE ASSISTANT [address] [place] [address] 10/28/2025 9:30 AM EST Office Visit [facility] [address] [place] [address] Sergey Tyson MD [address] [place] [address] Lorri Keenan CCC-CONFERENCE ASSISTANT 8 [place] [address] 11/05/2025 10:30 AM EST Office Visit [facility] [address] [place] [address] Sergey Tyson MD [address] [place] [address] Lorri Keenan CCC-CONFERENCE ASSISTANT 8 [place] [address] 11/19/2025 9:30 AM EST Office Visit [facility] 8 [place] [address] Sergey Tyson MD [address] [place] [address] Lorri Keenan CCC-CONFERENCE ASSISTANT 8 [place] [address] 12/03/2025 11:30 AM EST Office Visit [facility] 8 [place] [address] Sergey Tyson MD [address] [place] [address] Lorri Keenan CCC-CONFERENCE ASSISTANT 8 [place] [address] 12/10/2025 2:45 PM EST Office Visit [facility] G[facility]ology Clinic [address] [place] [address] Unknown, Unknown, Karlos Henning MD [address] [place] [address] 04/28/2026 8:00 AM EDT Office Visit [facility] Medical [facility] Internal Medicine [address] [place] [address] Sergey Tyson MD [address] [place] [address] 05/20/2026 9:00 AM EDT Office Visit [facility] at [address] [address] Apple Talavera MD [address] [place] [address] [email or web address] documented as of this encounter Results * [...] documented as of this encounter Care Teams Global Sales Director Relationship Specialty Start Date End Date Karlos Lyons MD [address] [place] [address] [email or web address] PCP - General Internal Medicine 05/08/21 05/09/22 Sergey Tyson MD [address] [place] [address] [email or web address] PCP - General Internal Medicine 05/10/22 Karlos Lyons MD [address] [place] [address] [email or web address] Insurance Assigned Provider 02/23/17 03/02/23 Omar Rocha MD [address] [place] [address] [email or web address] Physical Medicine and Rehabilitation 05/08/21 Sagar Leung MD [address] [place] [address] [email or web address] Obstetrics and Gynecology 05/08/21 Yefri Hilliard MD [address] [place] [address] Endocrinology 05/08/21 Karlos Murry MD [address] [place] [address] [email or web address] Gastroenterology 02/27/22 Apple Talavera MD [address] [place] [address] [email or web address] Primary Oncologist Medical Oncology 02/19/23 Sergey Tyson MD [address] [place] [address] [email or web address] Insurance Assigned Provider 02/29/24 Mena Mcwilliams, RN [address] [place] [address] [email or web address] PSYCHIATRIC Lyric Writer 11/13/23 12/11/23 documented as of this encounter Additional Source Comments The information contained in this document represents components of the legal health record. It is not the complete legal health record.[facility]
--- OUTSIDE RECORDS SUMMARY | 2025-09-28 15:59 | XMS_ITS | Encounter Summary ---
Author Organization [facility] Address [facility] [address] [place] [address] Phone Care Team Providers Care Clerical Supervisor Name Role Phone Omar Rocha MD Unavailable [phone] Sagar Leung MD Unavailable Yefri Hilliard MD Unavailable Karlos Murry MD Unavailable Sergey Tyson MD Primary Care Provider Apple Talavera MD Unavailable Sergey Tyson MD Unavailable Encounter Details Date Type Department Care Team (Latest Contact Info) Description 12/23/2024 Transcribe Orders Virtual Department 30 [place] [address] Omar Rocha MD [address] [place] [address] Left hip pain (Primary Dx) [...] high school, GED, job training, learning the [place] language, technical skills, or developing parenting [...] Description 10/01/2025 10:30 AM EST Office Visit [facility] 8 [place] [address] Sergey Tyson MD [address] [place] [address] Lorri Keenan CCC-MIXER AND BLENDER [address] [place] [address] 10/08/2025 10:30 AM EST Office Visit [facility] 8 [place] [address] Sergey Tyson MD [address] [place] [address] Lorri Keenan CCC-MIXER AND BLENDER 8 [place] [address] 10/08/2025 2:00 PM EST Office Visit [facility] Pulmonary, Allergy and Critical Care Medicine [address] [place] [address] Rj Leiva MD [address] [place] [address] [email or web address] 10/15/2025 10:30 AM EST Office Visit [facility] 8 [place] [address] Sergey Tyson MD [address] [place] [address] Lorri Keenan CCC-MIXER AND BLENDER 8 [place] [address] 10/18/2025 8:30 AM EST Office Visit [facility] 8 [place] [address] Sergey Tyson MD [address] [place] [address] Lorri Keenan CCC-MIXER AND BLENDER 8 [place] [address] 10/28/2025 9:30 AM EST Office Visit [facility] 8 [place] [address] Sergey Tyson MD [address] [place] [address] Lorri Keenan CCC-MIXER AND BLENDER 8 [place] [address] 11/05/2025 10:30 AM EST Office Visit [facility] 8 [place] [address] Sergey Tyson MD [address] [place] [address] Lorri Keenan CCC-MIXER AND BLENDER 8 [place] [address] 11/19/2025 9:30 AM EST Office Visit [facility] 8 [place] [address] Sergey Tyson MD [address] [place] [address] Lorri Keenan CCC-MIXER AND BLENDER 8 [place] [address] 12/03/2025 11:30 AM EST Office Visit [facility] 8 [place] [address] Sergey Tyson MD 40 [place] [address] Lorri Keenan CCC-MIXER AND BLENDER 8 [place] [address] 12/10/2025 2:45 PM EST Office Visit [facility] [address] [place] [address] Unknown, Unknown, Karlos Henning MD [address] [place] [address] 04/28/2026 8:00 AM EDT Office Visit [facility] Internal Medicine 40 [place] [address] Sergey Tyson MD 40 [place], [place] [phone] 05/20/2026 9:00 AM EDT Office Visit [facility] 30 [place] [address] Apple Talavera MD [address] [place] [address] [phone] documented as of this encounter Results * [...] clinician's provided indication for this examination in [facility]: Outside Radiology Order; Pain in left hip [...] as of this encounter Care Teams Clerical Supervisor Relationship Specialty Start Date End Date Sergey Tyson MD [address] [place] [address] PCP - General Internal Medicine 05/10/22 Omar Rocha MD [email or web address] Physical Medicine and Rehabilitation 05/08/21 Sagar Leung MD [address] [place] [address], [address] [place] [address] [email or web address] Obstetrics and Gynecology 05/08/21 Yefri Hilliard MD [address] [place] [address] Endocrinology 05/08/21 Karlos Murry MD [address] [place] [address] [email or web address] Gastroenterology 02/27/22 Apple Talavera MD [address] [place] [address] Primary Oncologist Medical Oncology 02/19/23 Sergey Tyson MD [address] [place] [address] [email or web address] Insurance Assigned Provider 02/29/24 documented as of this encounter Additional Source Comments The information contained in this document represents components of the legal health record. It is not the complete legal health record.[facility]
--- OUTSIDE RECORDS SUMMARY | 2025-09-28 15:59 | XMS_ITS | Encounter Summary ---
Author Organization [facility] Address [address] [place] [address] [address] [place] [address] Phone Care Team Providers Care Under Ground Miner Name Role Phone Karlos Lyons MD Unavailable [phone] Omar Rocha MD Unavailable [phone] Sagar Leung MD Unavailable Karlos Lyons MD Primary Care Provider [phone] Yefri Hilliard MD Unavailable [phone] Karlos Murry MD Unavailable [phone] Sergey Tyson MD Primary Care Provider [phone] Apple Talavera MD Unavailable [phone] Sergey Tyson MD Unavailable Mena Mcwilliams RN Unavailable [phone] Reason for Referral * MRI/CAT Scan - Closed Specialty Diagnoses / Procedures Referred By Jessica balbuena Referred To Contact Radiology Diagnoses Vision loss Nonintractable headache, unspecified chronicity pattern, unspecified headache type Procedures MRI Brain Berto Quintanilla MD Phone: tel: fax: [email or web address] Referral ID Status Reason Start Date Expiration Date Visits Re quested Visits Authorized [id number] Closed 02/22/2022 02/22/2023 1 1 Encounter Details Date Type Department Care Team (Latest Contact Info) Description 02/22/2022 Transcribe Orders Virtual Department [address] [place] [address] Berto Quintanilla MD [address] [place] [address], [address] [place] [address] [email or web address] Vision loss (Primary Dx); Nonintractable headache, [...] Description 10/01/2025 10:30 AM EST Office Visit [facility] 8 [place] [address] Sergey Tyson MD [address] [place] [address] [email or web address] Lorri Keenan, [facility] 8 [place] [address] 10/08/2025 10:30 AM EST Office Visit [facility] 8 [place] [address] Sergey Tyson MD [address] [place] [address] Lorri Keenan CCC-LENS MOUNTER 8 [place] [address] 10/08/2025 2:00 PM EST Office Visit [facility] Pulmonary, Allergy and Critical Care Medicine [address] [place] [address] Rj Leiva MD [address] [place] [address] [email or web address] 10/15/2025 10:30 AM EST Office Visit [address] [address] Sergey Tyson MD [address] [place] [address] Lorri Keenan CCC-LENS MOUNTER [address] [place] [address] 10/18/2025 8:30 AM EST Office Visit [facility] 8 [place] [address] Sergey Tyson MD [address] [place] [address] Lorri Keenan CCC-LENS MOUNTER [address] [place] [address] 10/28/2025 9:30 AM EST Office Visit [facility] 8 [place] [address] Sergey Tyson MD [address] [place] [address] Lorri Keenan CCC-LENS MOUNTER 8 [place] [address] 11/05/2025 10:30 AM EST Office Visit [facility] 8 [place] [address] Sergey Tyson MD [address] [place] [address] 132[address] Lorri Keenan CCC-LENS MOUNTER 8 [place] [address] 11/19/2025 9:30 AM EST Office Visit [facility] 8 [place] [address] Sergey Tyson MD [address] [place] [address] 326[address] Lorri Keenan CCC-LENS MOUNTER [address] [place] [address] 12/03/2025 11:30 AM EST Office Visit [facility] 8 [place] [address] Sergey Tyson MD [address] [place] [address] Lorri Keenan CCC-LENS MOUNTER 8 [place] [address] 12/10/2025 2:45 PM EST Office Visit [facility] Gastroenterology Clinic [address] [place] [address] [phone] Unknown, Unknown, MD Murry, Karlos Martines MD [address] [place] [address] [phone] 04/28/2026 8:00 AM EDT Office Visit [facility] Internal Medicine 40 [place] [address] Sergey Tyson MD 40 [place] [address] [email or web address] 05/20/2026 9:00 AM EDT Office Visit [facility] at [facility] 30 [place] [address] Apple Talavera MD [address] [place] [address] [email or web address] documented as of this encounter [...] was performed withoutintravenous contrast. COMPARISON: MRI-MRA HEAD [facility] FINDINGS: Brain Parenchyma: No evidence of acute [...] are likely benign. us Berto Quintanilla MD IMG MR HEAD/NECK Final Resul t * US [...] antegrade vertebral artery flow. Berto Quintanilla MD [facility] NEUROVASCULAR Final Re sult documented in this [...] documented as of this encounter Care Teams Under Ground Miner Relationship Specialty Start Date End Date Karlos Lyons MD [address] [place] [address] [email or web address] PCP - General Internal Medicine 05/08/21 05/09/22 Sergey Tyson MD [address] [place] [address] [email or web address] PCP - General Internal Medicine 05/10/22 Karlos Lyons MD [address] [place] [address] [email or web address] Insurance Assigned Provider 02/23/17 03/02/23 Omar Rocha MD [address] [place] [address] [email or web address] Physical Medicine and Rehabilitation 05/08/21 Sagar Leung MD 22 [facility] [address] [place] [address] [email or web address] Obstetrics and Gynecology 05/08/21 Yefri Hilliard MD [address] [place] [address] Endocrinology 05/08/21 Karlos Murry MD [address] [place] [address] [email or web address] Gastroenterology 02/27/22 Apple Talavera MD [address] [place] [address] [email or web address] Primary Oncologist Medical Oncology 02/19/23 Sergey Tyson MD [address] [place] [address] 148[address] [email or web address] Insurance Assigned Provider 02/29/24 Mena Mcwilliams, RN [address] [place] [address] [email or web address] [facility] Super[facility] Case Loading 11/13/23 12/11/23 documented as of this encounter Additional Source Comments The information contained in this document represents components of the legal health record. It is not the complete legal health record.[facility]
--- OUTSIDE RECORDS SUMMARY | 2025-09-28 15:59 | XMS_ITS | Encounter Summary ---
Author Organization [facility] Address [facility] [address] [place] [address] Phone Care Team Providers Care Manager Creative Name Role Phone Karlos Lyons MD Unavailable [phone] Omar Rocha MD Unavailable Sagar Leung MD Unavailable Karlos Lyons MD Primary Care Provider [phone] Yefri Hilliard MD Unavailable Karlos Murry MD Unavailable [phone] Sergey Tyson MD Primary Care Provider [phone] Apple Talavera MD Unavailable [phone] Sergey Tyson MD Unavailable Mena Mcwilliams RN Unavailable [phone] Encounter Details Date Type Department Care Team (Late st Contact Info) Description 01/23/2022 Procedure Pass [facility] Endoscopy Admitting Dept Virtual Department 30 [place] [address] Social History Tobacco Use Types Packs/Day Years [...] Description 10/01/2025 10:30 AM EST Office Visit [facility] 8 [place] [address] Sergey Tyson MD [address] [place] [address] [email or web address] Lorri Keenan [facility]URNA[facility] OPERATOR 8 [place] [address] 10/08/2025 10:30 AM EST Office Visit [facility] 8 [place] [address] Sergey Tyson MD [address] [place] [address] Lorri Keenan [facility] OPERATOR 8 [place] [address] 10/08/2025 2:00 PM EST Office Visit [facility] Allergy [facility] Critical Care Medicine 10 [place] [address] Rj Leiva MD [address] [place] [address] [email or web address] 10/15/2025 10:30 AM EST Office Visit [facility] [address] [place] [address] Sergey Tyson MD [address] [place] [address] Lorri Keenan CCC-REHEAT FURNACE OPERATOR [address] [place] [address] 10/18/2025 8:30 AM EST Office Visit [facility] 8 [place] [address] Sergey Tyson MD [address] [place] [address] Lorri Keenan CCC-REHEAT FURNACE OPERATOR [address] [place] [address] 10/28/2025 9:30 AM EST Office Visit [address] [address] Sergey Tyson MD [address] [place] [address] Lorri Keenan CCC-REHEAT FURNACE OPERATOR [address] [place] [address] 11/05/2025 10:30 AM EST Office Visit [facility] 8 [place] [address] Sergey Tyson MD [address] [place] [address] Lorri Keenan CCC-REHEAT FURNACE OPERATOR [address] [place] [address] 11/19/2025 9:30 AM EST Office Visit [facility] 8 [place] [address] Sergey Tyson MD [address] [place] [address] 28[address] Lorri Keenan CCC-REHEAT FURNACE OPERATOR 8 [place] [address] 12/03/2025 11:30 AM EST Office Visit [facility] 8 [place] [address] Sergey Tyson MD [address] [place] [address] Lorri Keenan CCC-REHEAT FURNACE OPERATOR 8 [place] [address] 12/10/2025 2:45 PM EST Office Visit [facility] Gastroenterology Clinic [address] [place] [address] Unknown, Unknown, MD Murry, Karlos Martines MD [address] [place] [address] 04/28/2026 8:00 AM EDT Office Visit [facility] Medical [facility] Internal Medicine [address] [place] [address] Sergey Tyson MD [address] [place] [address] 49083 05/20/2026 9:00 AM EDT Office Visit [facility] 30 [place] [address] Apple Talavera MD [address] [place] [address] documented as of this encounter Visit Diagnoses Not on filedocumented in this encounter Additional Health Concerns Infection Onset Date Last Indicated Resolved Time CoV-Risk 05/07/2022 05/07/2022 05/18/2022 1:24 AM EDT Assessment Noted Time PHQ-2 Depression Total Score: 0 05/05/20 21 9:23 PM EDT documented as of this encounter Care Teams Manager Creative Relationship Specialty Start Date End Date Karlos Lyons MD [address] [address] [email or web address] PCP - General Internal Medicine 05/08/21 05/09/22 Sergey Tyson MD [address] [place] [address] [email or web address] PCP - General Internal Medicine 05/10/22 Karlos Lyons MD [address] [place] [address] [email or web address] Insurance Assigned Provider 02/23/17 03/02/23 Omar Rocha MD [address] [place] [address] [email or web address] Physical Medicine and Rehabilitation 05/08/21 Sagar Leung MD [address] [place] [address] 102 [place] [address] [email or web address] Obstetrics and Gynecology 05/08/21 Yefri Hilliard MD [address] [place] [address] Endocrinology 05/08/21 Karlos Murry MD [address] [place] [address] [email or web address] Gastroenterology 02/27/22 Apple Talavera MD [address] [place] [address] [email or web address] Primary Oncologist Medical Oncology 02/19/23 Sergey Tyson MD [address] [place] [address] [email or web address] Insurance Assigned Provider 02/29/24 Mena Mcwilliams, RN [address] [place] [address] [phone] [email or web address] [facility] Varnish Supervisor 11/13/23 12/11/23 documented as of this encounter Additional Source Comments The information contained in this document represents components of the legal health record. It is not the complete legal health record.[facility]
--- OUTSIDE RECORDS SUMMARY | 2025-09-28 15:59 | XMS_ITS | Clinical Summary ---
Author Organization [facility] Address [facility] [employer] [facility] [address] [place] [address] Phone Care Team Providers Care Digital Business Analyst Name Role Phone Omar Rocha MD Unavailable [phone] Sagar Leung MD Unavailable Yefri Hilliard MD Unavailable [phone] Adan Hoffman MD Unavailable Sergey Tyson MD Primary Care Provider [phone] Apple Talavera MD Unavailable Sergey Tyson MD [...] 2,000 Units by mouth daily. 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 Rohca at [facility] Take 10 mg by mouth 4 (four) times a day. And take 2 tablets at bedtime. Indications: managed by Dr. Rocha at [facility] 09/29/20 Active fluticasone propionate (FLONASE) 50 mcg/actuation nasal [...] MORNING. 90 tablet 3 02/12/20 25 Active albuterol 90 mcg/actuation inhalerIndications :Pneumonia of right lower lobe due to infectious organism INHALE 2 PUFFS INTO THE LUNGS EVERY 6 HOURS NEEDED FOR WHEEZE 8 g 5 04/20/20 25 Active budesonide (ENTOCORT EC) 3 mg 24 hr capsule Take 3 mg by mouth every morning. 05/05/20 25 Active sodium chloride 3 % nebulizer solution Take 4 mL (120 mg total) by nebulization 2 (two) times a day. 240 mL 11 06/24/20 25 Active guaiFENesin (MUCINEX) 600 mg ER biphasic tablet Take 600 mg by mouth. 04/21/20 25 Active nizatidine (AXID) 150 MG capsule Take 1 capsule by mouth 2 (two) times a day. 07/12/20 25 Active ipratropium (ATROVENT) 21 mcg (0.03 %) nasal spray 2 sprays by Nasal route every 12 (twelve) hours. 30 mL 12 07/27/20 25 Active magnesium chloride (SLOW-MAG) 596 mg (71.5 mg elemental) TbEC Take 1 tablet (596 mg total) by mouth daily. 90 tablet 2 08/05/20 25 Active Active Problems Patient Care Coordination No te [...] OTC. She is working together with her build technician regarding her lung and upper respiratory symptoms. [...] of Oddi. She has a follow-up with [facility] on Saturday. She is advised to maintain adequate hydration and to avoid foods high in fat to prevent exacerbation of pain. Discussed the possibility of an MRCP with GI. Pneumonia of both lower lobes due to infectious organism 03/26/2025 Assessment & Plan (04/13/2025 6:19 PM EDT): Will obtain chest CT at [facility] where the last 1 was done [...] is also being what worked up by [facility] gastroenterology. Will follow but focus on [...] such lets set the patient up with [facility] orthopedics to reassess if that is [...] versus pancreas insufficiency being worked up by [facility] with stool tests and a HIDA scan coming up this Saturday. Then the other issue is ongoing coughing, phlegm production, malaise with history of pneumonia, and after the visit markedly elevated CRP. Will obtain chest CT at [facility] where the last 1 was done [...] Will do the bone density scan at [facility]. In regards to night sweats and [...] its possible that would overtake this from [place] [facility] but will cross that [...] and ADR Opted to recheck urine at [facility] lab due to [facility]'s protocol on sending out urine for [...] several adenomatous polyps. 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 Fasciculations [...] recent thyroid function studies were done at [facility] and this can be found in [...] (05/08/2021): bilateral, Seen by Dr Sims at [facility] Assessment & Plan (09/28/2024 10:42 AM [...] Encounters Date Type Department Care Team Description 09/23/2025 9:30 AM EDT Office Visit [facility] [address] [place] [address] Sergey Tyson MD Korza, Laurie J, CCC-INSEAM TRIMMING MACHINE OPERATOR Pharyngoesophageal dysphagia (Primary Dx) 09/22/2025 Telephone [facility] [address] [place] [address] Rj Leiva MD 09/13/2025 Plan of Care Documentation [facility] [address] [place] [address] 09/09/2025 8:30 AM EDT Office Visit [facility] [address] [place] [address] Sergey Tyson MD Korza, Laurie J, CCC-INSEAM TRIMMING MACHINE OPERATOR Pharyngoesophageal dysphagia (Primary Dx); Esophageal spasm 08/05/2025 Orders Only [facility] Internal [facility] [address] [place] [address] Sergey Tyson MD 08/04/2025 2:28 PM EDT - 08/04/2025 11:59 PM EDT Hospital Encounter [facility] [address] [place] [address] Sergey Tyson MD Discharge Disposition: Home or Self Care 08/04/2025 Refill [facility] [address] [place] [address] Sergey Tyson MD Med Change Request 08/04/2025 Telephone [facility] [address] [place] [address] Sergey Tyson MD Request for updated speech order for patient coming 09/02/25 (Request for updated speech order for patient coming 09/02/25. Per Department policy, order is valid for 90 days. Thank you, Brittney Figueroa Patient Access Services Rehab Department. ) 07/29/2025 Telephone [facility] [address] [place] [address] Sergey Tyson MD Results 07/27/2025 10:45 AM EDT - 07/27/2025 11:59 PM EDT Hospital Encounter [facility] [address] [place] [address] Sergey Tyson MD Discharge Disposition: Home or Self Care 07/27/2025 10:00 AM EDT Office Visit [facility] [address] [place] [address] Sergey Tyson MD Other age-related cataract of both eyes (Primary Dx); Primary hypertension; Esophageal spasm; Leg cramping; Postablative hypothyroidism; Chronic cough; Gastroesophageal reflux disease without esophagitis 07/27/2025 Refill [facility] [address] [facility] [place] [address] Wen Bess RN 07/19/2025 12:08 PM EDT - 07/19/2025 11:59 PM EDT Hospital Encounter [facility] PFT Lab [address] [place] [address] Rj Leiva MD Discharge Disposition: Home or Self Care 07/19/2025 11:27 AM EDT - 07/19/2025 12:07 PM EDT Hospital Encounter [facility], X-Ray - [facility] [address] [place] [address] Rj Leiva MD Discharge Disposition: Home or Self Care 07/14/2025 Orders Only [facility] [address] [place] [address] ProviderAvelino MD 07/01/2025 Ancillary Orders [facility],Outside Imaging [address] [place] [address] Unknown, Unknown, from Last 3 Months Immunizations Immunization Administration Dates Next Due COVID-19 (Pre-09/16) Pfizer Vaccine, mRNA, PF 02/21/2021,01/31/2021 COVID-19, Unspecified Formulation 11/07/2022 [id number] FORMULATION 10/07/2009 INFLUENZA, SPLIT VIRUS, TRIVALENT PF [...] Polycystic kidney disease Child 1 from sree hanson father Polycystic kidney disease Child 2 from sree hanson father, also had a renal transplant Thyroid [...] Description 10/01/2025 10:30 AM EST Office Visit [facility] [address] [place] [address] Sergey Tyson MD [address] [place] [address] Lorri Keenan CCC-INSEAM TRIMMING MACHINE OPERATOR [address] [place] [phone] [email or web address] 10/08/2025 10:30 AM EST Office Visit [facility] [address] [place] [address] Sergey Tyson MD [address] [place] [address] Lorri Keenan CCC-INSEAM TRIMMING MACHINE OPERATOR [address] [place] [address] 10/08/2025 2:00 PM EST Office Visit [facility] [address] [place] [phone] Rj Leiva MD [address] [place] [address] [email or web address] 10/15/2025 10:30 AM EST Office Visit [facility] [address] [place] [address] Sergey Tyson MD [address] [place] [address] Lorri Keenan CCC-INSEAM TRIMMING MACHINE OPERATOR [address] [place] [address] 10/18/2025 8:30 AM EST Office Visit [address] [address] Sergey Tyson MD [address] [place] [address] Lorri Keenan CCC-INSEAM TRIMMING MACHINE OPERATOR [address] [place] [phone] 10/28/2025 9:30 AM EST Office Visit [facility] [address] [place] [address] Sergey Tyson MD [address] [place] [address] Lorri Keenan CCC-INSEAM TRIMMING MACHINE OPERATOR [address] [place] [address] 11/05/2025 10:30 AM EST Office Visit [facility] [address] [place] [address] Sergey Tyson MD [address] [place] [address] Lorri Keenan CCC-INSEAM TRIMMING MACHINE OPERATOR [address] [place] [address] 11/19/2025 9:30 AM EST Office Visit [facility] [address] [place] [address] Sergey Tyson MD [address] [place] [address] [phone] Lorri Keenan CCC-INSEAM TRIMMING MACHINE OPERATOR [address] [place] [address] 12/03/2025 11:30 AM EST Office Visit [facility] [address] [place] [address] Sergey Tyson MD [address] [place] [address] Lorri Keenan CCC-INSEAM TRIMMING MACHINE OPERATOR [address] [place] [address] 12/10/2025 2:45 PM EST Office Visit [facility] [address] [place] [address] Unknown, Unknown, Adan Henning MD [address] [place] [address] 04/28/2026 8:00 AM EDT Office Visit [facility] Medical [facility] Internal Medicine [address] [place] [address] Sergey Tyson MD [address] [place] [address] 05/20/2026 9:00 AM EDT Office Visit [facility] at [address] [place] [address] Apple Talavera MD [address] [place] [address] [email or web address] Health Maintenance Due Date Last Done Comments COLOGUARD 1995 FOBT 1995 SIGMOIDOSCOPY 1995 VIRTUAL COLONOSCOPY 1995 ZOSTER VACCINES (1 of 2) 10/13/2012 08/18/2012 Adult Td,Tdap Booster 06/15/2023 06/15/2013 FIT TEST 03/04/2025 03/04/2024 RSV VACCINE (1 - 1-dose 75+ series) 2025 INFLUENZA VACCINE (#1) 2025 , 09/08/2023, 09/08/2023, Additional history exists COVID-19 VACCINE ( season) 2025 08/24/2023, 11/07/2022, 11/07/2022, Additional history exists BLOOD PRESSURE 01/24/2026 07/27/2025 DEPRESSION SCREENING 04/07/2026 04/07/2025, 09/11/20 LIPID PANEL 05/11/2026 05/11/2021, 05/11/2021 CREATININE LEVEL 07/27/2026 07/27/2025, 04/2024, 09/28/2024, Additional history exists POTASSIUM LEVEL 07/27/2026 07/27/2025, 12/04/2024, 09/28/2024, Additional history exists TSH LEVEL 07/27/2026 07/27/2025, 110 02/2024, 04/10/2024, Additional history exists COLONOSCOPY 09/13/2032 [...] this topic Medical Devices Implanted Type Area Cutter Gas Device Identifier Shelf Expiration Date Model / [...] AM EDT Postablative hypothyroidism BASIC METABOLIC PANEL (BMP) Routine 07/27/2025 10:45 AM EDT Primary hypertension PULMONARY FUNCTION TEST Routine 07/19/2025 1:59 PM EDT Pneumonia of both lower lobes due to infectious organism FL (SPEECH) VIDEO SWALLOW STUDY Routine 07/19/2025 12:51 PM EDT Pneumonia of both lower lobes due to infectious organism Aspiration into lower respiratory tract, sequela Dysphagia, unspecified type OUTSIDE US ABDOMEN REPORT ONLY Routine 07/13/2025 6:56 AM EDT BD DXA MONITORING Routine 05/02/2024 10: 14 AM EDT Osteopenia of lumbar spine FECAL IMMUNOCHEMICAL BLOOD TEST X1 (FIT) Routine 03/04/2024 9:15 PM EDT Change in [...] ALKALINE PHOSPHATASE 85 39 - 117 U/L [facility] TOTAL BILIRUBIN <0.2 0.0 - 1.2 mg/dL [facility] DIRECT BILIRUBIN <0.1 0.0 - 0.2 mg/dL [facility] Bilirubin (Indirect) NOT CALCULATED 0 - 1.5 mg/dL [facility] AST 23 0 - 37 U/L [facility] ALT 12 0 - 40 U/L [facility] TOTAL PROTEIN 7.1 6.5 - 8.0 g/dL [facility] ALBUMIN 4.2 3.9 - 4.8 g/dL [facility] GLOBULIN 2.9 1 - 4.8 g/dL [facility] A/G Ratio 1.45 1.00 - 4.80 RATIO [facility] Blood 08/04/2025 2:23 PM EDT 08/04/2025 2:27 PM EDT us Sergey Tyson MD LAB BLOOD BKR ORDERABLES Final R esult [facility] [address] [place] [address] * (ABNORMAL) CBC and differential (08/04/2025 2:23 PM EDT) WBC 5.44 4.00 - 11.00 K/uL [facility] RBC 4.25 4.00 - 5.20 M/uL [facility] HGB 14.0 12.0 - 16.0 g/dL [facility] HCT 43.3 36.0 - 46.0 % [facility] PLT 266 150 - 450 K/uL [facility] MCV 101.9(H) 80.0 - 100.0 fL [facility] MCH 32.9(H) 27.0 - 31.0 pg [facility] MCHC 32.3 32.0 - 36.0 g/dL [facility] RDW 11.8 11.5 - 14.5 % [facility] MPV 9.6 8.4 - 12.0 fL [facility] NRBC 0.00 0.00 /100 WBCs [facility] ABSOLUTE NRBC 0.00 0.00 K/uL [facility] DIFF METHOD Auto [facility] NEUTS 71.0 48.0 - 76.0 % [facility] LYMPHS 19.7 18.0 - 41.0 % [facility] MONOS 6.4 4.0 - 11.0 % [facility] EOS 1.8 0.0 - 5.0 % [facility] BASOS 0.9 0.0 - 1.5 % [facility] Granulocytes, immature (%) 0.2 0.0 - 0.9 % [facility] ABSOLUTE NEUTS 3.86 1.92 - 7.60 K/uL [facility] ABSOLUTE LYMPHS 1.07 0.72 - 4.10 K/uL [facility] ABSOLUTE MONOS 0.35 0.16 - 1.10 K/uL [facility] ABSOLUTE EOS 0.10 0.00 - 0.50 K/uL [facility] ABSOLUTE BASOS 0.05 0.00 - 0.15 K/uL [facility] Granulocytes, immature 0.01 0.00 - 0.09 K/uL [facility] Blood 08/04/2025 2:23 PM EDT 08/04/2025 2:27 PM EDT us Sergey Tyson MD LAB BLOOD BKR ORDERABLES Final R esult [address] [address] * Folate (08/04/2025 2:23 PM EDT) FOLIC ACID 6.4 4.2 - 19.9 ng/mL [facility] Blood 08/04/2025 2:23 PM EDT 08/04/2025 2:27 PM EDT us Sergey Tyson MD LAB BLOOD BKR ORDERABLES Final R esult Performing Organization Address [facility]/ZIP Co de Phone Number [address] [address] * Vitamin B12 (08/04/2025 2:23 PM EDT) Pathologist [facility] VITAMIN B12 920 232 - 1,245 pg/mL [facility] Blood 08/04/2025 2:23 PM EDT 08/04/2025 2:27 PM EDT us Sergey Tyson MD LAB BLOOD BKR ORDERABLES Final R esult Performing Organization Address City/[facility]/ZIP Co de Phone Number [address] [address] * TSH with reflex (07/27/2025 10:45 AM EDT) Pathologist [facility] TSH 1.17 0.27 - 4.20 uIU/mL [facility] Blood 07/27/2025 10:4 5 AM EDT 07/27/2025 10:47 AM EDT us Sergey Tyson MD LAB BLOOD BKR ORDERABLES Final R esult Performing Organization Address City/[facility]/ZIP Co de Phone Number [address] [address] * (ABNORMAL) CBC (07/27/2025 10:45 AM EDT) WBC 4.46 4.00 - 11.00 K/uL [facility] RBC 4.35 4.00 - 5.20 M/uL [facility] HGB 14.6 12.0 - 16.0 g/dL [facility] HCT 44.9 36.0 - 46.0 % [facility] PLT 255 150 - 450 K/uL [facility] MCV 103.2(H) 80.0 - 100.0 fL [facility] MCH 33.6(H) 27.0 - 31.0 pg [facility] MCHC 32.5 32.0 - 36.0 g/dL [facility] RDW 11.6 11.5 - 14.5 % [facility] MPV 9.7 8.4 - 12.0 fL [facility] NRBC 0.00 0.00 /100 WBCs [facility] ABSOLUTE NRBC 0.00 0.00 K/uL [facility] Blood 07/27/2025 10:4 5 AM EDT 07/27/2025 10:47 AM EDT us Sergey Tyson MD LAB BLOOD BKR ORDERABLES Final R esult Performing Organization Address City/State/[facility] Co de Phone Number [address] [address] * (ABNORMAL) Basic metabolic panel (07/27/2025 10:45 AM EDT) SODIUM 137 133 - 146 mmol/L [facility] CHLORIDE 100 96 - 108 mmol/L [facility] POTASSIUM 4.3 3.3 - 5.1 mmol/L [facility] CO2 28 21 - 35 mmol/L [facility] BUN 20(H) 6 - 19 mg/dL [facility] CREATININE 0.90 0.5 - 1.5 mg/dL [facility] GLUCOSE 93 70 - 99 mg/dL [facility] CALCIUM 9.5 8.4 - 10.3 mg/dL [facility] EGFR 67 >59 mL/min/1.7 3m2 [facility] Comment:Estimated glomerular filtration rate calculated using the CKD-EPI refit equation. ANION GAP 13 10 - 20 mmol/L [facility] Blood 07/27/2025 10:4 5 AM EDT 07/27/2025 10:47 AM EDT us Sergey Tyson MD LAB BLOOD BKR ORDERABLES Final R esult [facility] [address] [place] [address] * Pulmonary Function Test Reason for Exam: COPD; Type of PFT Test: Spirometry with bronchodilator, DLCO, Lung Volumes; Performing Location: [facility] (07/19/2025 1:59 PM EDT) FEV1 2.32 [...] exercise. Technical Note: As of 10/06/2024, the [facility] Pulmonary Function Testing (PFT) Laboratory transitioned [...] please contact the interpreting physician or PFT laboratory engineer. For further discussion of this issue please see Ayana et al [facility] 2022;207(8):[id number]. Please Note: Not all PFT labs within, [...] 41 seconds The examination was performed by RRVance Chase. Dr. Aishwarya Plaza was immediately available for portions of the procedure as needed. ATTESTATION: I, Aishwarya Plaza as teaching physician, have reviewed the images for this case and if necessary edited the report originally created by Vance Jordan. Narrative 07/19/2025 3:47 PM EDT [place] MODIFIED BARIUM SWALLOW HISTORY:Aspiration. Dysphagia. COMPARISON:[place] upper GI series 12/02/2024. TECHNIQUE: Fluoroscopic assistance [...] Procedure Note Aishwarya Plaza MD - 07/19/2025 [place] MODIFIED BARIUM SWALLOW HISTORY:Aspiration. Dysphagia. COMPARISON:[facility] upper GI series 12/02/2024. TECHNIQUE: Fluoroscopic assistance [...] edited the report originally createdby Vance Jordan. Rj Leiva MD IMG FL EXAMS Final Result * Outside US Abdomen Report Only (07/13/2025 6:56 AM EDT) Historical Provider IMG US ABDOMEN Final Res ult * DXA Monitoring (05/02/2024 10:14 AM EDT) Anatomical Region Laterality Modality Bone Density Bone Density Sergey Tyson MD IMG BD BONE DENSITY DEXA Final R esult * Fecal immunochemical test x1 (FIT) (03/04/2024 9:15 PM EDT) Immuno Fecal Occult Negative Negative [facility] Stool (Stool) 03/04/2024 9:1 5 PM EDT 03/06/2024 10:00 AM EDT Adan Hoffman MD LAB BODY FLUIDS AND STOOL ORDERABLES Final Result [address] [address] * ENDOSCOPY, COLON (09/13/2022 11:58 AM EDT) Narrative Transcriptions Adan Hoffman MD - 09/13/2022 11:58 AM EDT Patient Name: Kaylyn Doan Attending MD:: ADAN HOFFMAN MD Procedure Date: 09/13/2022 11:58AM Date of : 1950 Age: 72 Admit Type: Outpatient Gender: Female Room: [place] [address] Referring MD: Sergey Tyson MD Exam Type: [...] 11:58 AM Procedure Code(s): --- Professional --- 40110, Colonoscopy, flexible; with removal of tumor(s), polyp(s), or other lesion(s) by snare technique 35481, 59, Colonoscopy, flexible; with biopsy, single or multiple --- Technical --- 52684, Colonoscopy, flexible; with removal of tumor(s), polyp(s), or other lesion(s) by snare technique 09868, 59, Colonoscopy, flexible; with biopsy, single or multiple Diagnosis Code(s): --- Professional --- K63.5, Polyp of colon Z86.010, Personal history of colonic polyps K64.9, Unspecified hemorrhoids Q43.8, Other specified congenital malformations of intestine --- Technical --- K63.5, Polyp of colon Z86.010, Personal history of colonic polyps K64.9, Unspecified hemorrhoids Q43.8, Other specified congenital malformations of intestine CPT copyright 2020 [employer]. All rights reserved. The codes documented in this report are preliminary and upon inner tube cutter reviewmay be revised to meet current compliance requirements. Procedure Date: 09/13/2022 11:58:[address] [place] [id number] us Sergey Tyson MD GI PROCEDURE ORDERABLES Final Re sult * Hepatitis C antibody, qualitative (05/11/2021 9:13 AM EDT) HCV NON-REACTIV E NON-REACTI VE [facility] Blood 05/11/2021 9:13 AM EDT 05/11/2021 9:19 AM EDT us Adan Lyons MD LAB BLOOD BKR ORDERABLES F inal Result [facility] [address] [place] [address] * (ABNORMAL) Lipid panel (05/11/2021 9:13 AM EDT) HDL 68 mg/dL [facility] Comment: Interpretation <40 mg/dL: Low HDL cholesterol (major risk factor for CHD) Greater than or equal to 60 mg/dL: High HDL cholesterol ( negative risk factor for CHD) HDL - cholesterol is affected by a number of factors, e.g. smoking, excerise, hormones, sex and age. CHOLESTEROL 217 0 - 240 mg/dL [facility] TRIGLYCERIDES 113 30 - 160 mg/dL [facility] LDL 126 50 - 129 mg/dL [facility] Comment: LDL levels in terms of risk for coronary heart disease: <100 mg/dL: Optimal 100-129 mg/dL: Near or above optimal 130-159 mg/dL: Borderline high 160-189 mg/dL: High >190 mg/dL: Very High CARDIAC RISK RATIO 3.2(L) 3.3 - 4.4 C [facility] Blood 05/11/2021 9:13 AM EDT 05/11/2021 9:19 AM EDT Adan Lyons MD LAB BLOOD BKR ORDERABLES F inal Result [facility] [address] [place] [address] from Last 3 Months or Most Recently Relevant to Health Maintenance Insurance [facility] MEDICARE PART A & B [facility] MEDIC[facility] PART A & B [facility] MEDIC[facility] PART A & B [facility] MEDICARE PART A & [place] [address] [facility] MEDICARE PART A & [place] [address] [facility] MEDICARE PART A & B MEDICARE PART A & B [facility] MEDIC[facility] PART A & B [facility] MEDIC[facility] PART A & B [facility]UR[facility] FEDERAL [facility] FEDERAL Care Teams Digital Business Analyst Relationship Specialty Start Date End Date Sergey Tyson MD [address] [facility] [place] [address] [email or web address] PCP - General Internal Medicine 05/10/22 Omar Rocha MD [email or web address] Physical Medicine and Rehabilitation 05/08/21 Sagar Leung MD [address] [place] [address] [address] [place] [address] [email or web address] Obstetrics and Gynecology 05/08/21 Yefri Hilliard MD [address] [place] [address] Endocrinology 05/08/21 Adan Hoffman MD [address] [place] [phone] [email or web address] Gastroenterology 02/27/22 Apple Talavera MD [address] [place] [address] Primary Oncologist Medical Oncology 02/19/23 Sergey Tyson MD [address] [place] [address] [email or web address] Insurance Assigned Provider 02/29/24 Additional Source Comments The information contained in this document represents components of the legal health record. It is not the complete legal health record.[facility]
--- OUTSIDE RECORDS SUMMARY | 2025-09-28 16:00 | XMS_ITS | Encounter Summary ---
Author Organization [facility] Address [address] [place] [address] [address] [place] [address] Phone Care Team Providers Care Screen Writer Name Role Phone Karlos Lyons MD Primary Care Provider Karlos Lyons MD Unavailable [phone] Omar Rocha MD Unavailable [phone] Sagar Leung MD Unavailable Karlos Lyons MD Primary Care Provider + [phone] Yefri Hilliard MD Unavailable [phone] Karlos Murry MD Unavailable [phone] Sergey Tyson MD Primary Care Provider Apple Talavera MD Unavailable [phone] Sergey Tyson MD Unavailable Mena Mcwilliams RN Unavailable [phone] Encounter Details Date Type Department Care Team (Latest Contact Info) Description 10/30/2018 Transcribe Orders [address] [place] [address] Karlos Murry MD [address] [place] [address] Nausea (Primary Dx) Social History Tobacco Use [...] Description 10/01/2025 10:30 AM EST Office Visit [facility] 8 [place] [address] Sergey Tyson MD [address] [place] [address] Lorri Keenan CCC-CATTLE FARMER 8 [place] [address] [email or web address] 10/08/2025 10:30 AM EST Office Visit [facility] 8 [place] [address] Sergey Tyson MD [address] [place] [address] Lorri Keenan CCC-CATTLE FARMER 8 [place] [address] 10/08/2025 2:00 PM EST Office Visit [facility], Allergy [facility] Critical Care Medicine [address] [place] [address] Rj Leiva MD [address] [place] [address] [email or web address] 10/15/2025 10:30 AM EST Office Visit [address] [place] [address] Sergey Tyson MD [address] [place] [address] Lorri Keenan CCC-CATTLE FARMER [address] [place] [address] 10/18/2025 8:30 AM EST Office Visit [address] [place] [address] Sergey Tyson MD [address] [place] [address] Lorri Keenan CCC-CATTLE FARMER [address] [place] [address] 10/28/2025 9:30 AM EST Office Visit [address] [place] [address] Sergey Tyson MD [address] [place] [address] Lorri Keenan CCC-CATTLE FARMER [address] [place] [address] 11/05/2025 10:30 AM EST Office Visit [address] [place] [address] Sergey Tyson MD [address] [place] [address] Lorri Keenan CCC-CATTLE FARMER [address] [place] [address] 11/19/2025 9:30 AM EST Office Visit [facility] 8 [place] [address] Sergey Tyson MD [address] [place] [address] Lorri Keenan CCC-CATTLE FARMER 8 [place] [address] 12/03/2025 11:30 AM EST Office Visit [facility] 8 [place] [address] Sergey Tyson MD [address] [place] [address] Lorri Keenan CCC-CATTLE FARMER 8 [place] [address] 12/10/2025 2:45 PM EST Office Visit [facility] [address] [place] [address] Unknown, Unknown, MD Murry, Karlos Martines MD [address] [place] [address] 04/28/2026 8:00 AM EDT Office Visit [facility] Internal Medicine [address] [place] [address] Sergey Tyson MD [address] [place] [address] 05/20/2026 9:00 AM EDT Office Visit [facility] at [address] [address] Apple Talavera MD [address] [place] [address] [email or web address] documented as of this encounter Results * Stool fat/fiber exam (10/29/2018 8:00 PM EST) FATTY ACID NORMAL NORMAL [facility] Neutral Fat, stool NORMAL NORMAL [facility] Stool (Stool) 10/29/2018 8:0 0 PM EST 10/30/2018 11:55 AM EST us Karlos Murry MD BODY FLUIDS AND STOOLS ORD ERABLES Final Result [facility] [address] [place] [address] documented in this encounter Visit Diagnoses Diagnosis Nausea- Primary Nausea alone documented in this encounter Additional Health Concerns Infection Onset Date Last Indicated Resolved Time CoV-Risk 05/07/2022 05/07/2022 05/18/2022 1:24 AM EDT Assessment Noted Time PHQ-2 Depression Total Score: 0 10/20/20 18 10:00 AM EST documented as of this encounter Care Teams Screen Writer Relationship Specialty Start Date End Date Karlos Lyons MD [address] [place] [address] [email or web address] PCP - General Internal Medicine 07/14/14 05/07/21 Karlos Lyons MD [address] [place] [address] [email or web address] PCP - General Internal Medicine 05/08/21 05/09/22 Sergey Tyson MD [address] [place] [address] [email or web address] PCP - General Internal Medicine 05/10/22 Karlos Lyons MD [address] [address] [email or web address] Insurance Assigned Provider 02/23/17 03/02/23 Omar Rocha MD [address] [place] [address] [email or web address] Physical Medicine and Rehabilitation 05/08/21 Sagar Leung MD [address] [place] [address] 102 [place] [address] [email or web address] Obstetrics and Gynecology 05/08/21 Yefri Hilliard MD [address] [place] [address] Endocrinology 05/08/21 Karlos Murry MD [address] [place] [address] [email or web address] Gastroenterology 02/27/22 Apple Talavera MD [address] [place] [address] [email or web address] Primary Oncologist Medical Oncology 02/19/23 Sergey Tyson MD [address] [place] [address] Insurance Assigned Provider 02/29/24 Mena Mcwilliams, RUSS 10 [place] [address] [email or web address] [facility] Nurse Aide Evaluator 11/13/23 12/11/23 documented as of this encounter Additional Source Comments The information contained in this document represents components of the legal health record. It is not the complete legal health record.[facility]
--- OUTSIDE RECORDS SUMMARY | 2025-09-28 16:00 | XMS_ITS | Encounter Summary ---
Author Organization [facility] Address [facility] [employer] [facility] [address] [place] [address] Phone Care Team Providers Care Low Voltage Technician Name Role Phone Omar Rocha MD Unavailable [phone] Sagar Leung MD Unavailable Yefri Hilliard MD Unavailable Karlos Murry MD Unavailable [phone] Sergey Tyson MD Primary Care Provider [phone] Apple Talavera MD Unavailable [phone] Sergey Tyson MD Unavailable Encounter Details Date Type Department Care Team (Late st Contact Info) Description 03/18/2024 Procedure Pass [facility] - [address] [place] [address] Social History Tobacco Use Types Packs/Day Years [...] high school, GED, job training, learning the Nigerian language, technical skills, or developing parenting skills)? [...] Description 10/01/2025 10:30 AM EST Office Visit [facility] [address] [place] [address] Sergey Tyson MD [address] [place], [place] [phone] Lorri Keenan CCC-GREASE MAKER [address] [place] [address] 10/08/2025 10:30 AM EST Office Visit [facility] 8 [place] [address] Sergey Tyson MD [address] [place] [address] Lorri Keenan CCC-GREASE MAKER [address] [place] [address] 10/08/2025 2:00 PM EST Office Visit [facility] Pulmonary, Allergy and Critical Care Medicine [address] [place] [address] Rj Leiva MD [address] [place] [address] [email or web address] 10/15/2025 10:30 AM EST Office Visit [address] [address] Sergey Tyson MD [address] [place] [address] Lorri Keenan CCC-GREASE MAKER [address] [place] [address] 10/18/2025 8:30 AM EST Office Visit [facility] 8 [place] [address] Sergey Tyson MD [address] [place] [address] Lorri Keenan CCC-GREASE MAKER 8 [place] [address] 10/28/2025 9:30 AM EST Office Visit [address] [address] Sergey Tyson MD [address] [place] [address] Lorri Keenan CCC-GREASE MAKER [address] [place] [address] 11/05/2025 10:30 AM EST Office Visit [address] [address] Sergey Tyson MD [address] [place] [address] Lorri Keenan CCC-GREASE MAKER [address] [place] [address] 11/19/2025 9:30 AM EST Office Visit [address] [address] Sergey Tyson MD [address] [place] [address] Lorri Keenan CCC-GREASE MAKER [address] [place] [address] 12/03/2025 11:30 AM EST Office Visit [address] [place] [address] Sergey Tyson MD [address] [place] [address] Lorri Keenan CCC-GREASE MAKER [address] [place] [address] 12/10/2025 2:45 PM EST Office Visit [facility] 10 [place] [address] Unknown, Unknown, Karlos Henning MD [address] [address] 04/28/2026 8:00 AM EDT Office Visit [facility] Internal Medicine 40 [place] [address] Sergey Tyson MD 40 [place] [address] 05/20/2026 9:00 AM EDT Office Visit [facility] 30 [place] [address] Apple Talavera MD [address] [place] [address] [email or web address] documented as of this encounter Visit Diagnoses Not on filedocumented in this encounter Additional Health Concerns Assessment Noted Time PHQ-9 Depression Total Score: 3 09/11/20 24 9:24 AM EDT PHQ-2 Depression Total Score: 0 04/07/20 25 12:34 PM EDT documented as of this encounter Care Teams Low Voltage Technician Relationship Specialty Start Date End Date Sergey Tyson MD 40 [place] [address] PCP - General Internal Medicine 05/10/22 Omar Rocha MD [email or web address] Physical Medicine and Rehabilitation 05/08/21 Sagar Leung MD [address] [place] [address], [address] [place] [address] Obstetrics and Gynecology 05/08/21 Yefri Hilliard MD [address] [place] [address] Endocrinology 05/08/21 Karlos Murry MD [address] [place] [address] [email or web address] Gastroenterology 02/27/22 Apple Talavera MD [address] [place] [address] [email or web address] Primary Oncologist Medical Oncology 02/19/23 Sergey Tyson MD [address] [place] [address] [email or web address] Insurance Assigned Provider 02/29/24 documented as of this encounter Additional Source Comments The information contained in this document represents components of the legal health record. It is not the complete legal health record.[facility]
--- OUTSIDE RECORDS SUMMARY | 2025-09-28 16:00 | XMS_ITS | Encounter Summary ---
Author Organization [facility] Address [address] [place] [address] [address] [place] [address] Phone Care Team Providers Care Surface Grinding Machine Hand Name Role Phone Karlos Lyons MD Primary Care Provider Karlos Lyons MD Unavailable [phone] Omar Rocha MD Unavailable [phone] Sagar Leung MD Unavailable Karlos Lyons MD Primary Care Provider [phone] Yefri Hilliard MD Unavailable [phone] Karlos Murry MD Unavailable [phone] Sergey Tyson MD Primary Care Provider [phone] Apple Talavera MD Unavailable [phone] Sergey Tyson MD Unavailable Mena Mcwilliams RN Unavailable [phone] Reason for Referral * Outpatient Procedure - Closed Specialty Diagnoses / Procedures Referred By Jessica balbuena Referred To Contact Radiology Diagnoses Bilateral hand pain Complex regional pain syndrome type 1 of both upper extremities Procedures NM Bone Flow 3 Phase Omar Rocha MD Phone: tel: fax: [email or web address] Referral ID Status Reason Start Date Expiration Date Visits Re quested Visits Authorized [id number] Closed 04/17/2018 04/17/2019 1 1 Encounter Details Date Type Department Care Team (Late Contact Info) Description 04/17/2018 Ancillary Orders Virtual Department 30 [place] [address] Omar Rocha MD [address] [place] [phone] [email or web address] Bilateral hand pain; Complex regional pain syndrome [...] Department Care Team (Late Contact Info) Description 10/01/2025 10:30 AM EST Office Visit [facility] 8 [place] [address] Sergey Tyson MD [address] [place] [address] Lorri Keenan, [facility]-ASSOCIATE PROFESSOR OF PHYSICS 8 [place] [address] 10/08/2025 10:30 AM EST Office Visit [facility] 8 [place] [address] Sergey Tyson MD [address] [place] [address] Lorri Keenan CCC-ASSOCIATE PROFESSOR OF PHYSICS 8 [place] [address] 10/08/2025 2:00 PM EST Office Visit [facility] Pulmonary, Allergy and Critical Care Medicine 10 [place] [address] Rj Leiva MD [address] [place] [address] [email or web address] 10/15/2025 10:30 AM EST Office Visit [address] [address] Sergey Tyson MD [address] [place] [address] Lorri Keenan CCC-ASSOCIATE PROFESSOR OF PHYSICS [address] [place] [address] 10/18/2025 8:30 AM EST Office Visit [address] [place] [address] Sergey Tyson MD [address] [place] [address] Lorri Keenan CCC-ASSOCIATE PROFESSOR OF PHYSICS 8 [place] [address] 10/28/2025 9:30 AM EST Office Visit [address] [place] [address] Sergey Tyson MD [address] [place] [address] Lorri Keenan CCC-ASSOCIATE PROFESSOR OF PHYSICS 8 [place] [address] 11/05/2025 10:30 AM EST Office Visit [facility] 8 [place] [address] Sergey Tyson MD [address] [place] [address] Lorri Keenan CCC-ASSOCIATE PROFESSOR OF PHYSICS 8 [place] [address] 11/19/2025 9:30 AM EST Office Visit [facility] 8 [place] [address] Sergey Tyson MD [address] [place] [address] Lorri Keenan CCC-ASSOCIATE PROFESSOR OF PHYSICS 8 [place] [address] 12/03/2025 11:30 AM EST Office Visit [facility] 8 [place] [address] Sergey Tyson MD [address] [place] [address] Lorri Keenan CCC-ASSOCIATE PROFESSOR OF PHYSICS 8 [place] [address] 12/10/2025 2:45 PM EST Office Visit [facility] [address] [place] [address] Unknown, Unknown, MD Murry, Karlos Martines MD [address] [phone] 04/28/2026 8:00 AM EDT Office Visit [facility] Internal Medicine 40 [place] [address] Sergey Tyson MD 40 [place] [address] 05/20/2026 9:00 AM EDT Office Visit [facility] at [address] [address] Apple Talavera MD [address] [place] [address] [email or web address] documented [...] documented as of this encounter Care Teams Surface Grinding Machine Hand Relationship Specialty Start Date End Date Karlos Lyons MD 90 [address] [address] [email or web address] PCP - General Internal Medicine 07/14/14 05/07/21 Karlos Lyons MD [address] [address] [email or web address] PCP - General Internal Medicine 05/08/21 05/09/22 Sergey Tyson MD [address] [place] [address] [email or web address] PCP - General Internal Medicine 05/10/22 Karlos Lyons MD [address] [place] [address] [email or web address] Insurance Assigned Provider 02/23/17 03/02/23 Omar Rocha MD [address] [place] [address] [email or web address] 05/08/21 Sagar Leung MD [address] [place] [address] [email or web address] Obstetrics and Gynecology 05/08/21 Yefri Hilliard MD [address] [place] [address] Endocrinology 05/08/21 Karlos Murry MD [address] [place] [address] [email or web address] Gastroenterology 02/27/22 Apple Talavera MD [address] [place] [address] @[email or web address] Primary Oncologist Medical Oncology 02/19/23 Sergey Tyson MD [address] [place] [address] [email or web address] Insurance Assigned Provider 02/29/24 Mena Mcwilliams RN [address] [place] [address] [email or web address] Fire Loss Prevention Engineer 11/13/23 12/11/23 documented as of this encounter Additional Source Comments The information contained in this document represents components of the legal health record. It is not the complete legal health record.[facility]
--- OUTSIDE RECORDS SUMMARY | 2025-09-28 16:00 | XMS_ITS | Encounter Summary ---
Author Organization [facility] Address [address] [place] [address] [address] [place] [address] Phone Care Team Providers Care Train Brakeman Name Role Phone Karlos Lyons MD Primary Care Provider Karlos Lyons MD Unavailable [phone] Omar Rocha MD Unavailable [phone] Sagar Leung MD Unavailable Karlos Lyons MD Primary Care Provider + [phone] Yefri Hilliard MD Unavailable [phone] Karlos Murry MD Unavailable [phone] Sergey Tyson MD Primary Care Provider [phone] Apple Talavera MD Unavailable [phone] Sergey Tyson MD Unavailable Mena Mcwilliams RN Unavailable [phone] Encounter Details Date Type Department Care Team (Late st Contact Info) Description 09/14/2017 Ancillary Orders [facility] [place] 30 [place], [place] [phone] Apple Talavera MD 30 [place] [address] Abnormal findings on diagnostic imaging of breast [...] Description 10/01/2025 10:30 AM EST Office Visit [address] [address] Sergey Tyson MD [address] [place] [address] Lorri Keenan CCC-SUGAR PRESSER 8 [place] [address] 10/08/2025 10:30 AM EST Office Visit [facility] 8 [place] [address] Sergey Tyson MD [address] [place] [address] Lorri Keenan CCC-SUGAR PRESSER 8 [place] [address] 10/08/2025 2:00 PM EST Office Visit [facility] Pulmonary, Allergy and Critical Care Medicine 10 [place] [address] Rj Leiva MD 30 [place] [address] [email or web address] 10/15/2025 10:30 AM EST Office Visit [facility] 8 [place] [address] Sergey Tyson MD [address] [place] [address] Lorri Keenan CCC-SUGAR PRESSER 8 [place] [address] 10/18/2025 8:30 AM EST Office Visit [address] [address] Sergey Tyson MD [address] [place] [address] Lorri Keenan CCC-SUGAR PRESSER [address] [place] [address] 10/28/2025 9:30 AM EST Office Visit [address] [address] Sergey Tyson MD [address] [place] [address] Lorri Keenan CCC-SUGAR PRESSER [address] [place] [address] 11/05/2025 10:30 AM EST Office Visit [address] [address] Sergey Tyson MD [address] [place] [address] Lorri Keenan CCC-SUGAR PRESSER 8 [place] [address] 11/19/2025 9:30 AM EST Office Visit [facility] 8 [place] [address] Sergey Tyson MD 40 [place] [address] Lorri Keenan CCC-SUGAR PRESSER 8 [place] [address] 12/03/2025 11:30 AM EST Office Visit [facility] 8 [place] [address] Sergey Tyson MD [address] [place] [address] Lorri Keenan CCC-SUGAR PRESSER 8 [place] [address] 12/10/2025 2:45 PM EST Office Visit [facility] [address] [place] [address] Unknown, Unknown, MD Murry, Karlos Martines MD [address] [place] [address] 04/28/2026 8:00 AM EDT Office Visit [facility] Internal Medicine 40 [place] [address] Sergey Tyson MD [address] [place] [address] 05/20/2026 9:00 AM EDT Office Visit [facility] at [address] [address] Apple Talavera MD [address] [place] [address] [email or web address] documented as of this encounter Visit Diagnoses Diagnosis Abnormal findings on diagnostic imaging of breast Other (abnormal) findings on radiological examination of breast documented in this encounter Additional Health Concerns Infection Onset Date Last Indicated Resolved Time CoV-Risk 05/07/2022 05/07/2022 05/18/2022 1:24 AM EDT documented as of this encounter Care Teams Train Brakeman Relationship Specialty Start Date End Date Karlos Lyons MD [address] [place] [address] [email or web address] PCP - General Internal Medicine 07/14/14 05/07/21 Karlos Lyons MD [address] [place] [address] [email or web address] PCP - General Internal Medicine 05/08/21 05/09/22 Sergey Tyson MD [address] [place] [address] [email or web address] PCP - General Internal Medicine 05/10/22 Karlos Lyons MD [address] [place] [address] [email or web address] Insurance Assigned Provider 02/23/17 03/02/23 Omar Rocha MD [address] [place] [address] [email or web address] Physical Medicine and Rehabilitation 05/08/21 Sagar Leung MD [address] [place] [address], [address] [place] [address] Obstetrics and Gynecology 05/08/21 Yefri Hilliard MD [address] [place] [address] Endocrinology 05/08/21 Karlos Murry MD [address] [place] [address] [email or web address] Gastroenterology 02/27/22 Apple Talavera MD [address] [place] [address] [email or web address] Primary Oncologist Medical Oncology 02/19/23 Sergey Tyson MD [address] [place] [address] [email or web address] Insurance Assigned Provider 02/29/24 Mena Mcwilliams, RN [address] [place] [address] [email or web address] [facility] Double End Production Grinder 11/13/23 12/11/23 documented as of this encounter Additional Source Comments The information contained in this document represents components of the legal health record. It is not the complete legal health record.[facility]
--- OUTSIDE RECORDS SUMMARY | 2025-09-28 16:00 | XMS_ITS | Encounter Summary ---
Author Organization [facility] Address [address] [place] [address] [address] [place] [address] Phone Care Team Providers Care Sales Account Executive Name Role Phone Karlos Lyons MD Primary Care Provider Karlos Lyons MD Unavailable [phone] Omar Rocha MD Unavailable [phone] Sagar Leung MD Unavailable Karlos Lyons MD Primary Care Provider + [phone] Yefri Hilliard MD Unavailable [phone] Karlos Murry MD Unavailable [phone] Sergey Tyson MD Primary Care Provider Apple Talavera MD Unavailable [phone] Sergey Tyson MD Unavailable Mena Mcwilliams RN Unavailable [phone] Encounter Details Date Type Department Care Team (Late st Contact Info) Description 03/16/2019 Procedure Pass [facility] [address] [place] [address] Social History Tobacco Use Types [...] EST Office Visit [facility] 8 [place] [address] Sergey Tyson MD [address] [place] [address] Lorri Keenan CCC-SPECIFICATION WRITER 8 [place] [address] 10/08/2025 10:30 AM EST Office Visit [facility] 8 [place] [address] Sergey Tyson MD [address] [place] [address] Lorri Keenan CCC-SPECIFICATION WRITER 8 [place] [address] 10/08/2025 2:00 PM EST Office [place] [facility] [place]monary[place] Allergy and Critical Care Medicine [address] [place] [address] Rj Leiva MD [address] [place] [address] [email or web address] 10/15/2025 10:30 AM EST Office Visit [facility] [address] [place] [address] Sergey Tyson MD [address] [place] [address] Lorri Keenan CCC-SPECIFICATION WRITER [address] [place] [address] 10/18/2025 8:30 AM EST Office Visit [address] [address] Sergey Tyson MD [address] [place] [address] Lorri Keenan CCC-SPECIFICATION WRITER [address] [place] [address] 10/28/2025 9:30 AM EST Office Visit [address] [address] Sergey Tyson MD [address] [place] [address] Lorri Keenan CCC-SPECIFICATION WRITER [address] [place] [address] 11/05/2025 10:30 AM EST Office Visit [address] [address] Sergey Tyson MD [address] [place] [address] Lorri Keenan CCC-SPECIFICATION WRITER [address] [place] [address] 11/19/2025 9:30 AM EST Office Visit [address] [address] Sergey Tyson MD 40 [place] [address] Lorri Keenan CCC-SPECIFICATION WRITER 8 [place] [address] 12/03/2025 11:30 AM EST Office Visit [facility] 8 [place] [address] Sergey Tyson MD 40 [place] [address] Lorri Keenan CCC-SPECIFICATION WRITER 8 [place] [address] 12/10/2025 2:45 PM EST Office Visit [facility] [address] [place] [address] Unknown, Unknown, MD Murry, Karlos Martines MD [address] [place] [address] 04/28/2026 8:00 AM EDT Office Visit [facility] Internal Medicine [address] [place] [address] Sergey Tyson MD [address] [place] [address] 05/20/2026 9:00 AM EDT Office Visit [facility] at [address] [address] Apple Talavera MD [address] [place] [address] [email or web address] documented as of this encounter Visit Diagnoses Not on filedocumented in this encounter Additional Health Concerns Infection Onset Date Last Indicated Resolved Time CoV-Risk 05/07/2022 05/07/2022 05/18/2022 1:24 AM EDT Assessment Noted Time PHQ-2 Depression Total Score: 0 10/20/20 18 10:00 AM EST documented as of this encounter Care Teams Sales Account Executive Relationship Specialty Start Date End Date Karlos Lyons MD [address] [address] [email or web address] PCP - General Internal Medicine 07/14/14 05/07/21 Karlos Lyons MD [address] [place] [address] [email or web address] PCP - General Internal Medicine 05/08/21 05/09/22 Sergey Tyson MD [address] [place] [address] [email or web address] PCP - General Internal Medicine 05/10/22 Karlos Lyons MD [address] [place] [address] [email or web address] Insurance Assigned Provider 02/23/17 03/02/23 Omar Rocha MD [address] [place] [address] [email or web address] Physical Medicine and Rehabilitation 05/08/21 Sagar Leung MD [address] [place] [address] 102 [place] [address] [email or web address] Obstetrics and Gynecology 05/08/21 Yefri Hilliard MD [address] [place] [address] Endocrinology 05/08/21 Karlos Murry MD [address] [place] [address] [email or web address] Gastroenterology 02/27/22 Apple Talavera MD [address] [place] [address] Primary Oncologist Medical Oncology 02/19/23 Sergey Tyson MD [address] [place] [address] [email or web address] Insurance Assigned Provider 02/29/24 Mena Mcwilliams, RN [address] [place] [address] [email or web address] [facility] Liaison [facility] 11/13/23 12/11/23 documented as of this encounter Additional Source Comments The information contained in this document represents components of the legal health record. It is not the complete legal health record.[facility]
--- OUTSIDE RECORDS SUMMARY | 2025-09-28 16:00 | XMS_ITS | Encounter Summary ---
Author Organization [facility] Address [address] [place] [address] Phone Care Team Providers Care Refrigeration Systems Installer Name Role Phone Karlos Lyons MD Primary Care Provider Karlos Lyons MD Unavailable [phone] Omar Rocha MD Unavailable [phone] Sagar Leung MD Unavailable Karlos Lyons MD Primary Care Provider + [phone] Yefri Hilliard MD Unavailable [phone] Karlos Murry MD Unavailable [phone] Sergey Tyson MD Primary Care Provider Apple Talavera MD Unavailable [phone] Sergey Tyson MD Unavailable Mena Mcwilliams RN Unavailable [phone] Reason for Referral * Occupational Therapy (Routine) - Closed Specialty Diagnoses / Procedures Referred By Jessica balbuena Referred To Contact Occupational Therapy Diagnoses Encounter for rehabilitation System, Provider Not In, PhD [address] [place] [address] [place] [address] Phone: tel: Referral ID Status Reason Start Date Expiration Date Visits Re quested Visits Authorized [id number] Closed 02/14/2018 11/24/2018 99 99 Encounter Details Date Type Department Care Team (Latest Contact Info) Description 02/14/2018 Transcribe Orders [address] [address] Theresa Peterson [facility] [place] [address] [email or web address] Encounter for rehabilitation (Primary Dx) Social History [...] Description 10/01/2025 10:30 AM EST Office Visit [address] [place] [address] Sergey Tyson MD [address] [place] [address] Lorri Keenan CCC-GLOBAL CLIMATE CHANGE ANALYST [address] [place] [address] 10/08/2025 10:30 AM EST Office Visit [address] [place] [address] Sergey Tyson MD [address] [place] [address] Lorri Keenan CCC-GLOBAL CLIMATE CHANGE ANALYST 8 [place] [address] 10/08/2025 2:00 PM EST Office Visit [facility] Pulmonary, Allergy and Critical Care Medicine 10 [place] [address] Rj Leiva MD [address] [place] [address] [email or web address] 10/15/2025 10:30 AM EST Office Visit [address] [address] Sergey Tyson MD [address] [place] [address] Lorri Keenan, CCC-GLOBAL CLIMATE CHANGE ANALYST [address] [place] [address] 10/18/2025 8:30 AM EST Office Visit [address] [address] Sergey Tyson MD [address] [place] [address] Lorri Keenan, CCC-GLOBAL CLIMATE CHANGE ANALYST [address] [place] [address] 10/28/2025 9:30 AM EST Office Visit [facility] 8 [place] [address] Sergey Tyson MD [address] [place] [address] Lorri Keenan CCC-GLOBAL CLIMATE CHANGE ANALYST 8 [place] [address] 11/05/2025 10:30 AM EST Office Visit [address] [address] Sergey Tyson MD [address] [place] [address] Lorri Keenan CCC-GLOBAL CLIMATE CHANGE ANALYST 8 [place] [address] 11/19/2025 9:30 AM EST Office Visit [facility] 8 [place] [address] Sergey Tyson MD [address] [place] [address] [email or web address] Lorri Keenan CCC-GLOBAL CLIMATE CHANGE ANALYST 8 [place] [address] 12/03/2025 11:30 AM EST Office Visit [facility] 8 [place] [address] Sergey Tyson MD [address] [place] [address] Lorri Keenan CCC-GLOBAL CLIMATE CHANGE ANALYST 8 [place] [address] 12/10/2025 2:45 PM EST Office Visit [facility] [address] [place] [address] Unknown, Unknown, MD Murry, Karlos Martines MD [address] [place] [address] 04/28/2026 8:00 AM EDT Office Visit [facility] Internal Medicine [address] [place] [address] Sergey Tyson MD [address] [place] [address] [email or web address] 05/20/2026 9:00 AM EDT Office Visit [facility] 30 [place] [address] Apple Talavera MD 30 [place] [address] [email or web address] Scheduled Referrals Name Type Priority Associated Diagnoses Orde r Schedule Ambulatory referral to [facility] Occupational Therapy Outpatient Referral Routine Encounter for rehabilitation Ordered: 02/14/2018 documented as of this encounter Visit Diagnoses Diagnosis Encounter for rehabilitation- Primary documented in this encounter Additional Health Concerns Infection Onset Date Last Indicated Resolved Time CoV-Risk 05/07/2022 05/07/2022 05/18/2022 1:24 AM EDT documented as of this encounter Care Teams Refrigeration Systems Installer Relationship Specialty Start Date End Date Karlos Lyons MD [address] [place] [address] [email or web address] PCP - General Internal Medicine 07/14/14 05/07/21 Karlos Lyons MD [address] [place] [address] [email or web address] PCP - General Internal Medicine 05/08/21 05/09/22 Sergey Tyson MD [address] [place] [address] [email or web address] PCP - General Internal Medicine 05/10/22 Karlos Lyons MD [address] [place] [address] [email or web address] Insurance Assigned Provider 02/23/17 03/02/23 Omar Rocha MD [address] [place] [address] 101 [place] [address] [email or web address] Physical Medicine [email or web address] Rehabilitation 05/08/21 Sagar Leung MD [address] [place] [address], [address] [place] [address] Obstetrics and Gynecology 05/08/21 Yefri Hilliard MD [address] [place] [address] Endocrinology 05/08/21 Karlos Murry MD [address] [place] [address] 2 [place] [address] Gastroenterology 02/27/22 Apple Talavera MD [address] [place] [address] Primary Oncologist Medical Oncology 02/19/23 Sergey Tyson MD [address] [place] [address] Insurance Assigned Provider 02/29/24 Mena Mcwilliams RN 10 [place] [address] [email or web address] [employer] 11/13/23 12/11/23 documented as of this encounter Additional Source Comments The information contained in this document represents components of the legal health record. It is not the complete legal health record.[facility]
--- OUTSIDE RECORDS SUMMARY | 2025-09-28 16:00 | XMS_ITS | Encounter Summary ---
Author Organization [facility] Address [facility] [address] [place] [address] Phone Care Team Providers Care Elementary Vocal Music Teacher Name Role Phone Karlos Lyons MD Unavailable [phone] Omar Rocha MD Unavailable [phone] Sagar Leung MD Unavailable Karlos Lyons MD Primary Care Provider [phone] Yefri Hilliard MD Unavailable Karlos Murry MD Unavailable [phone] Sergey Tyson MD Primary Care Provider Apple Talavera MD Unavailable Sergey Tyson MD Unavailable Mena Mcwilliams RN Unavailable Encounter Details Date Type Department Care Team (Latest Contact Info) Description 11/13/2021 Transcribe Orders Virtual Department 30 [place], [place] [id number] Omar Rocha MD [address] [place] [address] [email or web address] Right foot pain (Primary Dx) Social History [...] Description 10/01/2025 10:30 AM EST Office Visit [facility] 8 [place] [address] Sergey Tyson MD [address] [place] [address] Lorri Keenan CCC-TOOL MACHINE SETUP OPERATOR 8 [place] [address] 10/08/2025 10:30 AM EST Office Visit [facility] 8 [place] [address] Sergey Tyson MD [address] [place] [address] Lorri Keenan CCC-TOOL MACHINE SETUP OPERATOR 8 [place] [address] 10/08/2025 2:00 PM EST Office Visit [facility], Allergy and Critical Care Medicine 10 [place] [address] Rj Leiva MD [address] [place] [address] [email or web address] 10/15/2025 10:30 AM EST Office Visit [facility] 8 [place] [address] Sergey Tyson MD [address] [place] [address] Lorri Keenan CCC-TOOL MACHINE SETUP OPERATOR 8 [place] [address] 10/18/2025 8:30 AM EST Office Visit [facility] [address] [place] [address] Sergey Tyson MD [address] [place] [address] Lorri Keenan CCC-TOOL MACHINE SETUP OPERATOR [address] [place] [address] 10/28/2025 9:30 AM EST Office Visit [facility] [address] [place] [address] Sergey Tyson MD [address] [place] [address] Lorri Keenan CCC-TOOL MACHINE SETUP OPERATOR 8 [place] [address] 11/05/2025 10:30 AM EST Office Visit [facility] [address] [place] [address] Sergey Tyson MD [address] [place] [address] Lorri Keenan CCC-TOOL MACHINE SETUP OPERATOR 8 [place] [address] 11/19/2025 9:30 AM EST Office Visit [facility] 8 [place] [address] Sergey Tyson MD [address] [place] [address] Lorri Keenan CCC-TOOL MACHINE SETUP OPERATOR 8 [place] [address] 12/03/2025 11:30 AM EST Office Visit [facility] 8 [place] [address] Sergey Tyson MD [address] [place] [address] Lorri Keenan CCC-TOOL MACHINE SETUP OPERATOR 8 [place] [address] 12/10/2025 2:45 PM EST Office Visit [facility] [address] [place] [address] Unknown, Unknown, Karlos Henning MD [address] [place] [address] 04/28/2026 8:00 AM EDT Office Visit [facility] Medical [facility] Internal Medicine [address] [place] [address] Sergey Tyson MD [address] [place] [address] 05/20/2026 9:00 AM EDT Office Visit [facility] at [address] [address] Apple Talavera MD [address] [place] [address] [phone] (work) [email or web address] documented as [...] documented as of this encounter Care Teams Elementary Vocal Music Teacher Relationship Specialty Start Date End Date Karlos Lyons MD [address] [place] [address] [email or web address] PCP - General Internal Medicine 05/08/21 05/09/22 Sergey Tyson MD [address] [place] [address] [email or web address] PCP - General Internal Medicine 05/10/22 Karlos Lyons MD [address] [place] [address] [email or web address] Insurance Assigned Provider 02/23/17 03/02/23 Omar Rocha MD [address] [place] [address] [email or web address] Physical Medicine and Rehabilitation 05/08/21 Sagar Leung MD [address] [place] [address], [address] [place] [address] [email or web address] Obstetrics and Gynecology 05/08/21 Yefri Hilliard MD [address] [place] [address] Endocrinology 05/08/21 Karlos Murry MD [address] [place] [address] [email or web address] Gastroenterology 02/27/22 Apple Talavera MD [address] [place] [address] [email or web address] Primary Oncologist Medical Oncology 02/19/23 Sergey Tyson MD [address] [place] [address] [email or web address] Insurance Assigned Provider 02/29/24 Mena Mcwilliams, RN [address] [place] [address] [email or web address] PHCM [employer] 11/13/23 12/11/23 documented as of this encounter Additional Source Comments The information contained in this document represents components of the legal health record. It is not the complete legal health record.[facility]
--- OUTSIDE RECORDS SUMMARY | 2025-09-28 16:00 | XMS_ITS | Encounter Summary ---
Author Organization [facility] Address [address] [place] [address] [address] [place] [address] Phone Care Team Providers Care Materials Development Engineer Name Role Phone Omar Rocha MD Unavailable Sagar Leung MD Unavailable Yefri Hilliard MD Unavailable [phone] Karlos Murry MD Unavailable [phone] Sergey Tyson MD Primary Care Provider Apple Talavera MD Unavailable [phone] Sergey Tyson MD Unavailable Reason for Referral * Outpatient Procedure - Closed Specialty Diagnoses / Procedures Referred By Jessica balbuena Referred To Contact Radiology Diagnoses Weight loss Procedures US Abdomen Arteries Duplex Limited Karlos Murry MD [address] [place] [address] Phone: tel: fax: mailto: Referral ID Status Reason Start Date Expiration Date Visits Re quested Visits Authorized [id number] Closed 02/03/2024 1 1 Encounter Details Date Type Department Care Team (Latest Contact Info) Description 02/03/2024 Transcribe Orders Virtual Department 30 [place] [address] Karlos Murry MD [address] [address] Weight loss (Primary Dx) Social History Tobacco [...] Description 10/01/2025 10:30 AM EST [facility] 8 [place] [address] Sergey Tyson MD [address] [place] [address] Lorri Keenan CCC-AGILE COACH 8 [place] [address] 10/08/2025 10:30 AM EST [facility] [address] [place] [address] Sergey Tyson MD [address] [place] [address] Lorri Keenan CCC-AGILE COACH 8 [place] [address] 10/08/2025 2:00 PM EST Office Visit [facility] Pulmonary, Allergy and Critical Care Medicine [address] [place] [address] Rj Leiva MD [address] [place] [address] [email or web address] 10/15/2025 10:30 AM EST [facility] [address] [place] [address] Sergey Tyson MD [address] [place] [address] Lorri Keenan CCC-AGILE COACH [address] [place] [address] 10/18/2025 8:30 AM EST Office Visit [address] [address] Sergey Tyson MD [address] [place] [address] Lorri Keenan CCC-AGILE COACH [address] [place] [address] 10/28/2025 9:30 AM EST Office Visit [address] [address] Sergey Tyson MD [address] [place] [address] Lorri Keenan CCC-AGILE COACH [address] [place] [address] 11/05/2025 10:30 AM EST Office Visit [address] [place] [address] Sergey Tyson MD [address] [place] [address] Lorri Keenan CCC-AGILE COACH [address] [place] [address] 11/19/2025 9:30 AM EST [facility] [address] [place] [address] Sergey Tyson MD [address] [place] [address] Lorri Keenan CCC-AGILE COACH 8 [place] [address] 12/03/2025 11:30 AM EST Office Visit [facility] 8 [place] [address] Sergey Tyson MD [address] [place] [address] Lorri Keenan CCC-AGILE COACH 8 [place] [address] 12/10/2025 2:45 PM EST Office Visit [facility] [address] [place] [address] Unknown, Unknown, MD Murry, Karlos Martines MD [address] [place] [address] 04/28/2026 8:00 AM EDT Office Visit [facility] Internal Medicine [address] [place] [address] Sergey Tyson MD [address] [place] [address] 05/20/2026 9:00 AM EDT Office Visit [facility] at [address] [address] Apple Talavera MD [address] [place] [address] documented as of this encounter Results * [...] documented as of this encounter Care Teams Materials Development Engineer Relationship Specialty Start Date End Date Sergey Tyson MD [address] [place] [address] PCP - General Internal Medicine 05/10/22 Omar Rocha MD [email or web address] Physical Medicine and Rehabilitation 05/08/21 Sagar Leung MD [address] [place] [address] 102 [place] [address] Obstetrics and Gynecology 05/08/21 Yefri Hilliard MD [address] [place] [address] Endocrinology 05/08/21 Karlos Murry MD [address] [place] [address] Gastroenterology 02/27/22 Apple Talavera MD [address] [place] [address] Primary Oncologist Medical Oncology 02/19/23 Sergey Tyson MD [address] [place] [address] Insurance Assigned Provider 02/29/24 documented as of this encounter Additional Source Comments The information contained in this document represents components of the legal health record. It is not the complete legal health record.[facility]
--- OUTSIDE RECORDS SUMMARY | 2025-09-28 16:00 | XMS_ITS | Encounter Summary ---
Author Organization [facility] Address [address] [place] [address] [address] [place] [address] Phone Care Team Providers Care Senior Fire Protection Engineer Name Role Phone Karlos Lyons MD Unavailable [phone] Omar Rocha MD Unavailable Sagar Leung MD Unavailable Karlos Lyons MD Primary Care Provider [phone] Yefri Hilliard MD Unavailable [phone] Karlos Murry MD Unavailable [phone] Sergey Tyson MD Primary Care Provider Apple Talavera MD Unavailable Sergey Tyson MD Unavailable Mena Mcwilliams RN Unavailable [phone] Encounter Details Date Type Department Care Team (Latest Contact Info) Description 10/25/2021 Transcribe Orders Virtual Department 30 [place], [place] [phone] Karlos Lyons MD [address] [phone] [email or web address] Breast screening (Primary Dx) Social [...] Description 10/01/2025 10:30 AM EST Office Visit [address] [address] Sergey Tyson MD [address] [place] [address] Lorri Keenan CCC-LEAD C DEVELOPER 8 [place] [address] 10/08/2025 10:30 AM EST Office Visit [facility] 8 [place] [address] Sergey Tyson MD [address] [place] [address] Lorri Keenan CCC-LEAD C DEVELOPER 8 [place] [address] 10/08/2025 2:00 PM EST Office Visit [facility] Pulmonary, Allergy and Critical Care Medicine 10 [place] [address] Rj Leiva MD [address] [place] [address] [email or web address] 10/15/2025 10:30 AM EST Office Visit [facility] 8 [place] [address] Sergey Tyson MD [address] [place] [address] Lorri Keenan CCC-LEAD C DEVELOPER 8 [place] [address] 10/18/2025 8:30 AM EST Office Visit [facility] 8 [place] [address] Sergey Tyson MD [address] [place] [address] Lorri Keenan CCC-LEAD C DEVELOPER [address] [place] [address] 10/28/2025 9:30 AM EST Office Visit [facility] 8 [place] [address] Sergey Tyson MD [address] [place] [address] Lorri Keenan CCC-LEAD C DEVELOPER 8 [place] [address] 11/05/2025 10:30 AM EST Office Visit [facility] 8 [place] [address] Sergey Tyson MD [address] [place] [address] Lorri Keenan CCC-LEAD C DEVELOPER 8 [place] [address] 11/19/2025 9:30 AM EST Office Visit [facility] 8 [place] [address] Sergey Tyson MD [address] [place] [address] Lorri Keenan CCC-LEAD C DEVELOPER 8 [place] [address] 12/03/2025 11:30 AM EST Office Visit [facility] 8 [place] [address] Sergey Tyson MD [address] [place] [address] Lorri Keenan CCC-LEAD C DEVELOPER 8 [place] [address] 12/10/2025 2:45 PM EST Office Visit [facility]ology [facility] [address] [place] [address] Unknown, Unknown, MD Murry, Karlos Martines MD [address] [place] [address] 04/28/2026 8:00 AM EDT Office Visit [facility] Medical [facility] Internal Medicine [address] [place] [address] Sergey Tyson MD [address] [place] [address] 05/20/2026 9:00 AM EDT Office Visit [facility] at [address] [address] Apple Talavera MD [address] [place] [address] [phone] (work) [email or web address] documented as of this encounter Results * [...] as of this encounter Care Teams Senior Fire Protection Engineer Relationship Specialty Start Date End Date Karlos Lyons MD [address] [place] [address] [email or web address] PCP - General Internal Medicine 05/08/21 05/09/22 Sergey Tyson MD [address] [place] [address] [email or web address] PCP - General Internal Medicine 05/10/22 Karlos Lyons MD [address] [place] [address] [email or web address] Insurance Assigned Provider 02/23/17 03/02/23 Omar Rocha MD [address] [place] [address] [email or web address] Physical Medicine and Rehabilitation 05/08/21 Sagar Leung MD [address] [place] [address], [address] [place] [address] [email or web address] Obstetrics and Gynecology 05/08/21 Yefri Hilliard MD [address] [place] [address] Endocrinology 05/08/21 Karlos Murry MD [address] [place] [address] [email or web address] Gastroenterology 02/27/22 Apple Talavera MD [address] [place] [address] [email or web address] Primary Oncologist Medical Oncology 02/19/23 Sergey Tyson MD [address] [place] [address] [email or web address] Insurance Assigned Provider 02/29/24 Mena Mcwilliams RN 10 [place] [address] [email or web address] [facility] 11/13/23 12/11/23 documented as of this encounter Additional Source Comments The information contained in this document represents components of the legal health record. It is not the complete legal health record.[facility]
--- OUTSIDE RECORDS SUMMARY | 2025-09-28 16:00 | XMS_ITS | Encounter Summary ---
Author Organization [facility] Address [facility] [address] [place] [address] Phone Care Team Providers Care Regulatory Coordinator Name Role Phone Omar Rocha MD Unavailable [phone] Sagar Leung MD Unavailable Yefri Hilliard MD Unavailable Karlos Murry MD Unavailable Sergye Tyson MD Primary Care Provider [phone] Apple Talavera MD Unavailable Sergey Tyson MD Unavailable Encounter Details Date Type Department Care Team (Latest Contact Info) Description 03/09/2024 Transcribe Orders Virtual Department 30 [place] [address] Omar Rocha MD [address] [place] [address] [email or web address] Thoracic spine pain (Primary Dx) Social History [...] Office Visit [facility] 8 [place] [address] Sergey Tyson MD [address] [place] [address] [email or web address] Lorri Keenan CCC-OXYACETYLENE TORCH OPERATOR 8 [place] [address] 10/08/2025 10:30 AM EST Office Visit [facility] 8 [place] [address] Sergey Tyson MD [address] [place] [address] Lorri Keenan CCC-OXYACETYLENE TORCH OPERATOR [address] [place] [address] 10/08/2025 2:00 PM EST Office Visit [facility]monary, Allergy and Critical Care Medicine [address] [place] [address] Rj Leiva MD [address] [place] [address] [email or web address] 10/15/2025 10:30 AM EST Office Visit [facility] [address] [place] [address] Sergey Tyson MD [address] [place] [address] Lorri Keenan CCC-OXYACETYLENE TORCH OPERATOR [address] [place] [address] 10/18/2025 8:30 AM EST Office Visit [facility] 8 [place] [address] Sergey Tyson MD [address] [place] [address] Lorri Keenan CCC-OXYACETYLENE TORCH OPERATOR 8 [place] [address] 10/28/2025 9:30 AM EST Office Visit [address] [place] [address] eSrgey Tyson MD [address] [place] [address] Lorri Keenan CCC-OXYACETYLENE TORCH OPERATOR [address] [place] [address] 11/05/2025 10:30 AM EST Office Visit [address] [place] [address] Sergey Tyson MD [address] [place] [address] Lorri Keenan CCC-OXYACETYLENE TORCH OPERATOR [address] [place] [address] 11/19/2025 9:30 AM EST Office Visit [facility] [address] [place] [address] Sergey Tyson MD [address] [place] [address] Lorri Keenan CCC-OXYACETYLENE TORCH OPERATOR 8 [place] [address] 12/03/2025 11:30 AM EST Office Visit [facility] 8 [place] [address] Sergey Tyson MD [address] [place] [address] Lorri Keenan, VICTOR MANUEL-OXYACETYLENE TORCH OPERATOR 8 [place] [address] 12/10/2025 2:45 PM EST Office Visit [facility] 10 [place] [address] Unknown, Unknown, MD Murry, Karlos Martines MD [address] [address] 04/28/2026 8:00 AM EDT Office Visit [facility] Internal Medicine 40 [place] [address] Sergey Tyson MD 40 [place] [address] 05/20/2026 9:00 AM EDT Office [facility] at [facility] 30 [place] [address] Apple Talavera MD [address] [place] [address] documented as of this encounter Results * [...] documented as of this encounter Care Teams Regulatory Coordinator Relationship Specialty Start Date End Date Sergey Tyson MD [address] [place] [address] PCP - General Internal Medicine 05/10/22 Omar Rocha MD [email or web address] Physical Medicine and Rehabilitation 05/08/21 Sagar Leung MD [address] [place] [address], [facility] 102 [place] [address] [email or web address] Obstetrics and Gynecology 05/08/21 Yefri Hilliard MD [address] [place] [address] [phone] Endocrinology 05/08/21 Karlos Murry MD [address] [place] [address] [email or web address] Gastroenterology 02/27/22 Apple Talavera MD [address] [place] [address] [email or web address] Primary Oncologist Medical Oncology 02/19/23 Sergey Tyson MD [address] [place] [address] [email or web address] Insurance Assigned Provider 02/29/24 documented as of this encounter Additional Source Comments The information contained in this document represents components of the legal health record. It is not the complete legal health record.[facility]
--- OUTSIDE RECORDS SUMMARY | 2025-09-28 16:00 | XMS_ITS | Encounter Summary ---
Author Organization [facility] Address [address] [place] [address] Phone Care Team Providers Care Sash Assembler Name Role Phone Karlos Lyons MD Primary Care Provider Karlos Lyons MD Unavailable [phone] Omar Rocha MD Unavailable [phone] Sagar Leung MD Unavailable Karlos Lyons MD Primary Care Provider [phone] Yefri Hilliard MD Unavailable [phone] Karlos Murry MD Unavailable [phone] Sergey Tyson MD Primary Care Provider [phone] Apple Talavera MD Unavailable [phone] Sergey Tyson MD Unavailable Mena Mcwilliams RN Unavailable [phone] Encounter Details Date Type Department Care Team (Late st Contact Info) Description 08/19/2018 Ancillary Orders [facility] Internal Medicine [address] [place] [address] Karlos Lyons MD [address] [place] [address] [email or web address] Breast screening Social History Tobacco Use Types [...] Description 10/01/2025 10:30 AM EST Office Visit [facility] 8 [place] [address] Sergey Tyson MD [address] [place] [address] Lorri Keenan CCC-AUTHORIZATION SPECIALIST 8 [place] [address] [email or web address] 10/08/2025 10:30 AM EST Office Visit [facility] 8 [place] [address] Sergey Tyson MD [address] [place] [address] Lorri Keenan CCC-AUTHORIZATION SPECIALIST 8 [place] [address] 10/08/2025 2:00 PM EST Office Visit [facility] Pulmonary, Allergy and Critical Care Medicine 10 [place] [address] Rj Leiva MD [address] [place] [address] [email or web address] 10/15/2025 10:30 AM EST Office Visit [address] [place] [address] Sergey Tyson MD [address] [place] [address] Lorri Keenan CCC-AUTHORIZATION SPECIALIST [address] [place] [address] 10/18/2025 8:30 AM EST Office Visit [address] [place] [address] Sergey Tyson MD [address] [place] [address] Lorri Keenan CCC-AUTHORIZATION SPECIALIST [address] [place] [address] 10/28/2025 9:30 AM EST Office Visit [address] [address] Sergey Tyson MD [address] [place] [address] Lorri Keenan CCC-AUTHORIZATION SPECIALIST [address] [place] [address] 11/05/2025 10:30 AM EST Office Visit [address] [place] [address] Sergey Tyson MD [address] [place] [address] Lorri Keenan CCC-AUTHORIZATION SPECIALIST [address] [place] [address] 11/19/2025 9:30 AM EST Office Visit [facility] 8 [place] [address] Sergey Tyson MD [address] [place] [address] Lorri Keenan CCC-AUTHORIZATION SPECIALIST 8 [place] [address] 12/03/2025 11:30 AM EST Office Visit [facility] 8 [place] [address] Sergey Tyson MD [address] [place] [address] Lorri Keenan CCC-AUTHORIZATION SPECIALIST 8 [place] [address] 12/10/2025 2:45 PM EST Office Visit [facility] Gastroenterology Clinic [address] [place] [address] Unknown, Unknown, Karlos Henning MD [address] [place] [address] 04/28/2026 8:00 AM EDT Office Visit [facility] Medical [facility] Internal Medicine [address] [place] [address] Sergey Tyson MD [address] [place] [address] 05/20/2026 9:00 AM EDT Office Visit [facility] at [address] [address] Apple Talavera MD [address] [place] [address] [email or web address] documented as of this encounter Visit Diagnoses Diagnosis Breast screening Breast screening, unspecified documented in this encounter Additional Health Concerns Infection Onset Date Last Indicated Resolved Time CoV-Risk 05/07/2022 05/07/2022 05/18/2022 1:24 AM EDT documented as of this encounter Care Teams Sash Assembler Relationship Specialty Start Date End Date Karlos Lyons MD [address] [place] [address] [email or web address] PCP - General Internal Medicine 07/14/14 05/07/21 Karlos Lyons MD [address] [place] [address] [email or web address] PCP - General Internal Medicine 05/08/21 05/09/22 Sergey Tyson MD [address] [place] [address] [email or web address] PCP - General Internal Medicine 05/10/22 Karlos Lyons MD [address] [place] [address] [email or web address] Insurance Assigned Provider 02/23/17 03/02/23 Omar Rocha MD [address] [place] [address] [email or web address] Physical Medicine and Rehabilitation 05/08/21 Sagar Leung MD [address] [place] [address], [address] [place] [address] Obstetrics and Gynecology 05/08/21 Yefri Hilliard MD [address] [place] [address] Endocrinology 05/08/21 Karlos Murry MD [address] [place] [address] Gastroenterology 02/27/22 Apple Talavera MD [address] [place] [address] Primary Oncologist Medical Oncology 02/19/23 Sergey Tyson MD [address] [place] [address] Insurance Assigned Provider 02/29/24 Mena Mcwilliams RN [address] [place] [address] [email or web address] PHCM Treatment Coordinator 11/13/23 12/11/23 documented as of this encounter Additional Source Comments The information contained in this document represents components of the legal health record. It is not the complete legal health record.[facility]
--- OUTSIDE RECORDS SUMMARY | 2025-09-28 16:00 | XMS_ITS | Encounter Summary ---
Author Organization [facility] Address [address] [place] [address] [address] [place] [address] Phone Care Team Providers Care Business Services Representative Name Role Phone Karlos Lyons MD Primary Care Provider Karlos Lyons MD Unavailable [phone] Omar Rocha MD Unavailable [phone] Sagar Leung MD Unavailable Karlos Lyons MD Primary Care Provider [phone] Yefri Hilliard MD Unavailable [phone] Karlos Murry MD Unavailable [phone] Sergey Tyson MD Primary Care Provider [phone] Apple Talavera MD Unavailable [phone] Sergey Tyson MD Unavailable Mena Mcwilliams RN Unavailable [phone] Reason for Referral * MRI/CAT Scan - Closed Specialty Diagnoses / Procedures Referred By Jessica balbuena Referred To Contact Radiology Diagnoses Lumbar radiculopathy 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 Procedures MRI Lumbar Spine Omar Rocha MD Phone: tel: fax: [email or web address] Referral ID Status Reason Start Date Expiration Date Visits Re quested Visits Authorized [id number] Closed 10/07/2019 10/06/2020 1 1 Encounter Details Date Type Department Care Team (Latest Contact Info) Description 10/07/2019 Ancillary Orders Virtual Department 30 [place] [address] Omar Rocha MD [address] [place] [address] [email or web address] Lumbar radiculopathy; Displacement of intervertebral disc of [...] Description 10/01/2025 10:30 AM EST Office Visit [facility] [address] [place] [address] Sergey Tyson MD [address] [place] [address] Lorri Keenan, [facility]-KEYING MACHINE OPERATOR 8 [place] [address] 10/08/2025 10:30 AM EST Office Visit [facility] [address] [place] [address] Sergey Tyson MD [address] [place] [address] Lorri Keenan CCC-KEYING MACHINE OPERATOR 8 [place] [address] 10/08/2025 2:00 PM EST Office Visit [facility] Pulmonary, Allergy and Critical Care Medicine 10 [place] [address] Rj Leiva MD [address] [place] [address] [email or web address] 10/15/2025 10:30 AM EST Office Visit [address] [address] Sergey Tyson MD [address] [place] [address] Lorri Keenan CCC-KEYING MACHINE OPERATOR 8 [place] [address] 10/18/2025 8:30 AM EST Office Visit [address] [address] Sergey Tyson MD [address] [place] [address] Lorri Keenan CCC-KEYING MACHINE OPERATOR 8 [place] [address] 10/28/2025 9:30 AM EST Office Visit [address] [address] Sergey Tyson MD [address] [place] [address] Lorri Keenan CCC-KEYING MACHINE OPERATOR 8 [place] [address] 11/05/2025 10:30 AM EST Office Visit [facility] 8 [place] [address] Sergey Tyson MD [address] [place] [address] Lorri Keenan CCC-KEYING MACHINE OPERATOR 8 [place] [address] 11/19/2025 9:30 AM EST Office Visit [facility] 8 [place] [address] Sergey Tyson MD [address] [place] [address] Lorri Keenan CCC-KEYING MACHINE OPERATOR 8 [place] [address] 12/03/2025 11:30 AM EST Office Visit [facility] 8 [place] [address] Sergey Tyson MD [address] [place] [address] Lorri Keenan CCC-KEYING MACHINE OPERATOR 8 [place] [address] 12/10/2025 2:45 PM EST Office Visit [facility] Gastroenterology Clinic 10 [place] [address] Unknown, Huey, MD Murry, Karlos Martines MD [address] [address] 04/28/2026 8:00 AM EDT Office Visit [facility] [place] Internal Medicine 40 [place] [address] Sergey Tyson MD 40 [place] [address] 05/20/2026 9:00 AM EDT Office Visit [facility] at [address] [address] Apple Talavera MD [address] [place] [address] [email or web address] documented as of this encounter Results * [...] renal lesions that appear similar in size [id number]. Posterior paraspinal soft tissues are unremarkable. IMPRESSION: Multilevel degenerative changes as described above, progressed from 2009study. Moderate canal stenosis at L3-L4. Moderate neuroforaminal stenosison the left at L4-L5 associated with mild compression of the left [id number] nerve root. POS - [id number] Omar Rocha [...] documented as of this encounter Care Teams Business Services Representative Relationship Specialty Start Date End Date Karlos Lyons MD [address] [address] [email or web address] PCP - General Internal Medicine 07/14/14 05/07/21 Karlos Lyons MD [address] [place] [address] [email or web address] PCP - General Internal Medicine 05/08/21 05/09/22 Sergey Tyson MD [address] [place] [address] [email or web address] PCP - General Internal Medicine 05/10/22 Karlos Lyons MD [address] [place] [address] [email or web address] Insurance Assigned Provider 02/23/17 03/02/23 Omar Rocha MD [address] [place] [address] [email or web address] Physical Medicine and Rehabilitation 05/08/21 Sagar Leung MD [address] [place] [address] [email or web address] Obstetrics and Gynecology 05/08/21 Yefri Hilliard MD [address] [place] [address] Endocrinology 05/08/21 Karlos Murry MD [address] [place] [address] [email or web address] Gastroenterology 02/27/22 Apple Talavera MD [address] [place] [address] [email or web address] Primary Oncologist Medical Oncology 02/19/23 Sergey Tyson MD [address] [place] [address] [email or web address] Insurance Assigned Provider 02/29/24 Mena Mcwilliams, RN [address] [place] [address] [email or web address] [facility] [employer] 11/13/23 12/11/23 documented as of this encounter Additional Source Comments The information contained in this document represents components of the legal health record. It is not the complete legal health record.[facility]
--- OUTSIDE RECORDS SUMMARY | 2025-09-28 16:00 | XMS_ITS | Encounter Summary ---
Author Organization [facility] Address [address] [place] [address] Phone Care Team Providers Care Program Director/Air Personality Name Role Phone Karlos Lyons MD Primary Care Provider Karlos Lyons MD Unavailable [phone] Omar Rocha MD Unavailable [phone] Sagar Leung MD Unavailable Karlos Lyons MD Primary Care Provider + [phone] Yefri Hilliard MD Unavailable [phone] Karlos Murry MD Unavailable [phone] Sergey Tyson MD Primary Care Provider Apple Talavera MD Unavailable [phone] Sergey Tyson MD Unavailable Mena Mcwilliams RN Unavailable [phone] Encounter Details Date Type Department Care Team (Late st Contact Info) Description 10/07/2019 Procedure Pass [facility], [facility] - [address] [place] [address] Social History Tobacco Use Types Packs/Day Years [...] Description 10/01/2025 10:30 AM EST Office Visit [address] [address] Sergey Tyson MD [address] [place] [address] Lorri Keenan CCC-EDUCATOR SENIOR CLINICAL [address] [place] [address] 10/08/2025 10:30 AM EST Office Visit [address] [address] Sergey Tyson MD [address] [place] [address] 166[address] Lorri Keenan CCC-EDUCATOR SENIOR CLINICAL [address] [place] [address] 10/08/2025 2:00 PM EST Office Visit [facility] Pulmonary, Allergy and Critical Care Medicine [address] [place] [address] Rj Leiva MD [address] [place] [address] [email or web address] 10/15/2025 10:30 AM EST [facility] 8 [place] [address] Sergey Tyson MD [address] [place] [address] Lorri Keenan CCC-EDUCATOR SENIOR CLINICAL 8 [place] [address] 10/18/2025 8:30 AM EST [facility] 8 [place] [address] Sergey Tyson MD [address] [place] [address] Lorri Keenan CCC-EDUCATOR SENIOR CLINICAL [address] [place] [address] 10/28/2025 9:30 AM EST [facility] 8 [place] [address] Sergey Tyson MD [address] [place] [address] Lorri Keenan CCC-EDUCATOR SENIOR CLINICAL 8 [place] [address] 11/05/2025 10:30 AM EST Office Visit [address] [address] Sergey Tyson MD [address] [place] [address] Lorri Keenan CCC-EDUCATOR SENIOR CLINICAL 8 [place] [address] 11/19/2025 9:30 AM EST [facility] 8 [place] [address] Sergey Tyson MD [address] [place] [address] 18[address] Lorri Keenan CCC-EDUCATOR SENIOR CLINICAL 8 [place] [address] 12/03/2025 11:30 AM EST [facility] 8 [place] [address] Sergey Tyson MD [address] [place] [address] Lorri Keenan CCC-EDUCATOR SENIOR CLINICAL 8 [place] [address] 12/10/2025 2:45 PM EST Office [facility] Gastro[facility]ology Clinic [address] [place] [address] Unknown, Unknown, MD Murry, Karlos Martines MD [address] [place] [address] 04/28/2026 8:00 AM EDT Office Visit [facility] Internal Medicine [address] [place] [address] Sergey Tyson MD [address] [place] [address] 05/20/2026 9:00 AM EDT Office Visit [facility] 30 [place] [address] Apple Talavera MD 30 [place] [address] [email or web address] documented as of this encounter Visit Diagnoses Not on filedocumented in this encounter Additional Health Concerns Infection Onset Date Last Indicated Resolved Time CoV-Risk 05/07/2022 05/07/2022 05/18/2022 1:24 AM EDT Assessment Noted Time PHQ-2 Depression Total Score: 0 10/20/20 18 10:00 AM EST documented as of this encounter Care Teams Program Director/Air Personality Relationship Specialty Start Date End Date Karlos Lyons MD [address] [place] [address] [email or web address] PCP - General Internal Medicine 07/14/14 05/07/21 Karlos Lyons MD [address] [place] [address] [email or web address] PCP - General Internal Medicine 05/08/21 05/09/22 Sergey Tyson MD [address] [place] [address] [email or web address] PCP - General Internal Medicine 05/10/22 Karlos Lyons MD [address] [place] [address] [email or web address] Insurance Assigned Provider 02/23/17 03/02/23 Omar Rocha MD [address] [place] [address] [email or web address] Physical Medicine and Rehabilitation 05/08/21 Sagar Leung MD [address] [facility], [address] [place] [address] Obstetrics and Gynecology 05/08/21 Yefri Hilliard MD [address] [place] [address] Endocrinology 05/08/21 Karlos Murry MD [address] [place] [address] Gastroenterology 02/27/22 Apple Talavera MD [address] [place] [address] Primary Oncologist Medical Oncology 02/19/23 Sergey Tyson MD [address] [place] [address] 51028 Insurance Assigned Provider 02/29/24 Mena Mcwilliams RN [address] [place] [address] [email or web address] [facility] Director Nursery School 11/13/23 12/11/23 documented as of this encounter Additional Source Comments The information contained in this document represents components of the legal health record. It is not the complete legal health record.[facility]
--- OUTSIDE RECORDS SUMMARY | 2025-09-28 16:00 | XMS_ITS | Encounter Summary ---
Author Organization [facility] Address [address] [place] [address] Care Team Providers Care Maintenance Supervisor Mechanical Name Role Phone Sergey Tyson MD Primary Care Provider [phone] Encounter Details Date Type Department Care Team (Late st Contact Info) Description 12/24/2024 Lab Requisition [facility] - Main Lab [address] [facility] [place] [address] [employer] [facility] [address] [place] [address] Calculus of kidney Social History Tobacco Use [...] LAB CHEMISTRY METHOD 12/24/2024 7:29 PM EST [facility] Blood Venous blood specimen / Unknown 12/24/2024 2:15 PM EST 12/24/2024 6:35 PM EST [employer] [facility] LAB BLOOD ORDERABLES Final Re sult Performing Organization Address City/[facility]/ZIP Co de Phone Number [facility] [address] [place] [address], [place] [phone] * Parathyroid hormone intact (12/24/2024 2:15 PM EST) PTH 36.6 18.5 - 88.0 pcg/mL LAB CHEMISTRY METHOD 12/24/2024 7:29 PM EST [facility] Blood Venous blood specimen / Unknown 12/24/2024 2:15 PM EST 12/24/2024 6:35 PM EST [employer] [place] LAB BLOOD ORDERABLES Final Re sult Performing Organization Address [facility]/ZIP Co de Phone Number [facility] [address] [place] [address], [place] [phone] documented in this encounter Visit Diagnoses Diagnosis Calculus of kidney documented in this encounter Care Teams Maintenance Supervisor Mechanical Relationship Specialty Start Date End Date Sergey Tyson MD [address] [place] [address] PCP - General Internal Medicine 12/24/24 documented as of this encounter
--- OUTSIDE RECORDS SUMMARY | 2025-09-28 16:00 | XMS_ITS | Encounter Summary ---
Author Organization [facility] Address [address] [place] [address] 9[address] [place] [address] Phone Care Team Providers Care Supervisor Coin Machine Name Role Phone Karlos Lyons MD Primary Care Provider Karlos Lyons MD Unavailable [phone] Omar Rocha MD Unavailable [phone] Sagar Leung MD Unavailable Karlos Lyons MD Primary Care Provider + [phone] Yefri Hilliard MD Unavailable [phone] Karlos Murry MD Unavailable [phone] Sergey Tyson MD Primary Care Provider [phone] Apple Talavera MD Unavailable [phone] Sergey Tyson MD Unavailable Mena Mcwilliams RN Unavailable [phone] Encounter Details Date Type Department Care Team (Late st Contact Info) Description 12/02/2017 Ancillary Orders [facility], X-Ray - [facility] [address] [place] [address] Omar Rocha MD [address] [place] [address] [email or web address] Social History Tobacco [...] Description 10/01/2025 10:30 AM EST Office Visit [address] [address] Sergey Tyson MD 40 [place] [address] Lorri Keenan CCC-CEMENT BASED MATERIALS PUMP TENDER 8 [place] [address] 10/08/2025 10:30 AM EST Office Visit [facility] 8 [place] [address] Sergey Tyson MD [address] [place] [address] Lorri Keenan CCC-CEMENT BASED MATERIALS PUMP TENDER 8 [place] [address] 10/08/2025 2:00 PM EST Office Visit [facility] Pulmonary, Allergy and Critical Care Medicine [address] [place] [address] Rj Leiva MD 30 [place] [address] [email or web address] 10/15/2025 10:30 AM EST Office Visit [facility] [address] [place] [address] Sergey Tyson MD [address] [place] [address] Lorri Keenan CCC-CEMENT BASED MATERIALS PUMP TENDER 8 [place] [address] 10/18/2025 8:30 AM EST Office Visit [address] [place] [address] Sergey Tyson MD [address] [place] [address] Lorri Keenan CCC-CEMENT BASED MATERIALS PUMP TENDER [address] [place] [address] 10/28/2025 9:30 AM EST Office Visit [address] [place] [address] Sergey Tyson MD [address] [place] [address] Lorri Keenan CCC-CEMENT BASED MATERIALS PUMP TENDER 8 [place] [address] 11/05/2025 10:30 AM EST Office Visit [address] [address] Sergey Tyson MD [address] [place] [address] Lorri Keenan CCC-CEMENT BASED MATERIALS PUMP TENDER 8 [place] [address] 11/19/2025 9:30 AM EST Office Visit [facility] 8 [place] [address] Sergey Tyson MD [address] [place] [address] Lorri Keenan CCC-CEMENT BASED MATERIALS PUMP TENDER 8 [place] [address] 12/03/2025 11:30 AM EST Office Visit [facility] 8 [place] [address] Sergey Tyson MD [address] [place] [address] Lorri Keenan CCC-CEMENT BASED MATERIALS PUMP TENDER 8 [place] [address] 12/10/2025 2:45 PM EST Office Visit [facility] Gastroenterology Clinic [address] [place] [address] Unknown, Huey, MD Murry, Karlos Martines MD [address] [place] [address] 04/28/2026 8:00 AM EDT Office Visit [facility] Internal Medicine [address] [place] [address] Sergey Tyson MD [address] [place] [address] 05/20/2026 9:00 AM EDT Office Visit [facility] Cancer Center at [address] [address] Apple Talavera MD [address] [place] [address] [email or web address] documented as of this encounter Results [...] as of this encounter Care Teams Supervisor Coin Machine Relationship Specialty Start Date End Date Karlos Lyons MD [address] [address] [email or web address] PCP - General Internal Medicine 07/14/14 05/07/21 Karlos Lyons MD [address] [place] [address] [email or web address] PCP - General Internal Medicine 05/08/21 05/09/22 Sergey Tyson MD [address] [place] [address] [email or web address] PCP - General Internal Medicine 05/10/22 Karlos Lyons MD [address] [place] [address] [email or web address] Insurance Assigned Provider 02/23/17 03/02/23 Omar Rocha MD [address] [place] [address] [email or web address] Physical Medicine and Rehabilitation 05/08/21 Sagar Leung MD [address] [place] [address], [address] [place] [address] [email or web address] Obstetrics and Gynecology 05/08/21 Yefri Hilliard MD [address] [place] [address] Endocrinology 05/08/21 Karlos Murry MD [address] [place] [address] [email or web address] Gastroenterology 02/27/22 Apple Talavera MD [address] [place] [address] [email or web address] Primary Oncologist Medical Oncology 02/19/23 Sergey Tyson MD [address] [place] [address] [email or web address] Insurance Assigned Provider 02/29/24 Mena Mcwilliams, RN 10 [place] [address] [email or web address] PHCM Erosion Control Coordinator 11/13/23 12/11/23 documented as of this encounter Additional Source Comments The information contained in this document represents components of the legal health record. It is not the complete legal health record.[facility]
--- OUTSIDE RECORDS SUMMARY | 2025-09-28 16:00 | XMS_ITS | Encounter Summary ---
Author Organization [facility] Address [facility] [employer] [facility] [address] [place] [address] Phone Care Team Providers Care Examining Chair Assembler Name Role Phone Omar Rocha MD Unavailable Sagar Leung MD Unavailable Yefri Hilliard MD Unavailable Karlos Murry MD Unavailable Sergey Tyson MD Primary Care Provider Apple Talavera MD Unavailable Sergey Tyson MD Unavailable Encounter Details Date Type Department Care Team (Late st Contact Info) Description 05/12/2025 Ancillary Orders [facility], [facility]- [address] [phone] Apple Talavera MD [address] [place] [address] [phone] [email or web address] Abnormal mammogram (Primary Dx) Social [...] Description 10/01/2025 10:30 AM EST Office Visit [facility] 8 [place] [address] Sergey Tyson MD [address] [place] [address] Lorri Keenan, [facility]-PERSONAL CARE HOME ADMINISTRATOR 8 [place] [address] 10/08/2025 10:30 AM EST Office Visit [facility] 8 [place] [address] Sergey Tyson MD [address] [place] [address] Lorri Keenan, [facility] ADMINISTRATOR 8 [place] [address] 10/08/2025 2:00 PM EST Office Visit [facility] Pulmonary, Allergy and Critical Care Medicine [address] [place] [address] Rj Leiva MD [address] [place] [address] [email or web address] 10/15/2025 10:30 AM EST Office Visit [facility] 8 [place] [address] Sergey Tyson MD 40 [place] [address] Lorri Keenan CCC-PERSONAL CARE HOME ADMINISTRATOR [address] [place] [address] 10/18/2025 8:30 AM EST Office Visit [facility] 8 [place] [address] Sergey Tyson MD [address] [place] [address] Lorri Keenan CCC-PERSONAL CARE HOME ADMINISTRATOR [address] [place] [address] 10/28/2025 9:30 AM EST Office Visit [address] [address] Sergey Tyson MD [address] [place] [address] Lorri Keenan CCC-PERSONAL CARE HOME ADMINISTRATOR [address] [place] [address] 11/05/2025 10:30 AM EST Office Visit [facility] 8 [place] [address] Sergey Tyson MD [address] [place] [address] Lorri Keenan CCC-PERSONAL CARE HOME ADMINISTRATOR [address] [place] [address] 11/19/2025 9:30 AM EST Office Visit [facility] 8 [place] [address] Sergey Tyson MD [address] [place] [address] Lorri Keenan CCC-PERSONAL CARE HOME ADMINISTRATOR 8 [place] [address] 12/03/2025 11:30 AM EST Office Visit [facility] Rehabilitation Services 8 [place] [address] Sergey Tyson MD [address] [place] [address] Lorri Keenan CCC-PERSONAL CARE HOME ADMINISTRATOR 8 [place] [address] 12/10/2025 2:45 PM EST Office Visit [facility] Gastroenterology Clinic [address] [place] [address] Unknown, Unknown, MD Murry, Karlos Martines MD [address] [place] [address] 04/28/2026 8:00 AM EDT Office Visit [facility] Internal Medicine [address] [place] [address] Sergey Tyson MD [address] [place] [address] 05/20/2026 9:00 AM EDT Office Visit [facility] Cancer Center at [address] [address] Apple Talavera MD [address] [place] [address] documented as of this encounter Results * [...] documented as of this encounter Care Teams Examining Chair Assembler Relationship Specialty Start Date End Date Sergey Tyson MD [address] [place] [address] PCP - General Internal Medicine 05/10/22 Omar Rocha MD [email or web address] Physical Medicine and Rehabilitation 05/08/21 Sagar Leung MD [address] [place] [address], [address] [place] [address] Obstetrics and Gynecology 05/08/21 Yefri Hilliard MD [address] [place] [address] Endocrinology 05/08/21 Karlos Murry MD [address] [place] [address] Gastroenterology 02/27/22 Apple Talavera MD [address] [place] [address] Primary Oncologist Medical Oncology 02/19/23 Sergey Tyson MD [address] [place] [address] [email or web address] Insurance Assigned Provider 02/29/24 documented as of this encounter Additional Source Comments The information contained in this document represents components of the legal health record. It is not the complete legal health record.[facility]
--- OUTSIDE RECORDS SUMMARY | 2025-09-28 16:00 | XMS_ITS | Clinical Summary ---
Author Organization [facility] Address [address] [place] [address] Phone Care Team Providers Care Mobile Home Servicer Name Role Phone Sergey Tyson MD Primary Care Provider [phone] Social History Tobacco Use Types Packs/Day Years Used Date Smoking Tobacco: Never Assessed Comments Unknown Sex and Gender Information Value Date Recorded Sex Assigned at Not on file Legal Sex Female 12:13 AM EST Gender Identity Not on file Sexual Orientation Not on file Plan of Treatment Health Maintenance Due Date Last Done Comments Colorectal Cancer Screening: Colonoscopy 1950 DTaP,Tdap,and Td Vaccines (1 - Tdap) 1969 Pneumococcal Vaccine: 50+ Ye ars (1 of 1 - PCV) 2000 Zoster Vaccines (1 of 2) 2000 Depression Screening 11/25/2024 Falls Risk Assessment 12/25/2024 Hepatitis C Screening [...] to complete this topic Insurance MEDICARE [facility] Care Teams Mobile Home Servicer Relationship Specialty Start Date End Date Sergey Tyson MD [address] [place] [address] PCP - General Internal Medicine 12/24/24
--- OUTSIDE RECORDS SUMMARY | 2025-09-28 16:00 | XMS_ITS | Encounter Summary ---
Author Organization [facility] Address [facility] [facility] [address] [place] [address] Phone Care Team Providers Care Solution Mixer Name Role Phone Karlos Lyons MD Unavailable Omar Rocha MD Unavailable [phone] Sagar Leung MD Unavailable Yefri Hilliard MD Unavailable Karlos Murry MD Unavailable [phone] Sergey Tyson MD Primary Care Provider [phone] Apple Talavera MD Unavailable [phone] Sergey Tyson MD Unavailable Mena Mcwilliams RN Unavailable [phone] Encounter Details Date Type Department Care Team (Late st Contact Info) Description 02/27/2023 Procedure Pass [facility], [facility] 30 [place] [address] Social History Tobacco Use Types Packs/Day Years [...] high school, GED, job training, learning the Argentine language, technical skills, or developing parenting skills)? [...] Description 10/01/2025 10:30 AM EST Office Visit [facility] Rehabilitation Services [address] [place] [address] Sergey Tyson MD 40 [place] [address] Lorri Keenan CCC-METAL SPRAY OPERATOR 8 [place] [address] 10/08/2025 10:30 AM EST Office Visit [facility] [address] [place] [address] Sergey Tyson MD [address] [place] [address] Lorri Keenan CCC-METAL SPRAY OPERATOR 8 [place] [address] 10/08/2025 2:00 PM EST Office Visit [facility] Pulmonary, Allergy and Critical Care Medicine [address] [place] [address] Rj Leiva MD [address] [place] [address] [email or web address] 10/15/2025 10:30 AM EST Office Visit [facility] 8 [place] [address] Sergey Tyson MD [address] [place] [address] Lorri Keenan CCC-METAL SPRAY OPERATOR 8 [place] [address] 10/18/2025 8:30 AM EST Office Visit [facility] [address] [place] [address] Sergey Tyson MD [address] [place] [address] Lorri Keenan CCC-METAL SPRAY OPERATOR 8 [place] [address] 10/28/2025 9:30 AM EST Office Visit [facility] [address] [place] [address] Sergey Tyson MD [address] [place] [address] Lorri Keenan CCC-METAL SPRAY OPERATOR 8 [place] [address] 11/05/2025 10:30 AM EST Office Visit [address] [address] Sergey Tyson MD [address] [place] [address] Lorri Keenan CCC-METAL SPRAY OPERATOR [address] [place] [address] 11/19/2025 9:30 AM EST Office Visit [address] [address] Sergey Tyson MD [address] [place] [address] Lorri Keenan CCC-METAL SPRAY OPERATOR [address] [place] [address] 12/03/2025 11:30 AM EST Office Visit [address] [address] Sergey Tyson MD [address] [place] [address] Lorri Keenan CCC-METAL SPRAY OPERATOR 8 [place] [address] 12/10/2025 2:45 PM EST Office Visit [facility] Gastroenterology Clinic 10 [place] [address] Unknown, Unknown, Karlos Henning MD [address] [address] [email or web address] 04/28/2026 8:00 AM EDT Office Visit [facility] Internal Medicine 40 [place] [address] Sergey Tyson MD [address] [place] [address] [email or web address] 05/20/2026 9:00 AM EDT Office Visit [facility] 30 [place] [address] Apple Talavera MD [address] [place] [id number] [email or web address] documented as of this encounter Visit Diagnoses Not on filedocumented in this encounter Additional Health Concerns Assessment Noted Time PHQ-2 Depression Total Score: 0 01/28/20 23 6:26 PM EST documented as of this encounter Care Teams Solution Mixer Relationship Specialty Start Date End Date Sergey Tyson MD [address] [place] [address] [email or web address] PCP - General Internal Medicine 05/10/22 Karlos Lyons MD [address] [place] [address] [email or web address] Insurance Assigned Provider 02/23/17 03/02/23 Omar Rocha MD [address] [place] [address] [id number] [email or web address] Physical Medicine and Rehabilitation 05/08/21 Sagar Leung MD [address] [place] [address] 102 [place] [address] Obstetrics and Gynecology 05/08/21 Yefri Hilliard MD [address] [place] [address] Endocrinology 05/08/21 Karlos Murry MD [address] [place] [address] Gastroenterology 02/27/22 Apple Talavera MD [address] [place] [address] [email or web address] Primary Oncologist Medical Oncology 02/19/23 Sergey Tyson MD [address] [place] [address] Insurance Assigned Provider 02/29/24 Mena Mcwilliams, RN [address] [place] [address] [email or web address] PHCM Country Printer Apprentice 11/13/23 12/11/23 documented as of this encounter Additional Source Comments The information contained in this document represents components of the legal health record. It is not the complete legal health record.[facility]
--- OUTSIDE RECORDS SUMMARY | 2025-09-28 16:00 | XMS_ITS | Encounter Summary ---
Author Organization [facility] Address [address] [place] [address] Phone Care Team Providers Care Strategy Specialist Name Role Phone Karlos Lyons MD Primary Care Provider Karlos Lyons MD Unavailable [phone] Omar Rocha MD Unavailable [phone] Sagar Leung MD Unavailable Karlos Lyons MD Primary Care Provider + [phone] Yefri Hilliard MD Unavailable [phone] Karlos Murry MD Unavailable [phone] Sergey Tyson MD Primary Care Provider Apple Talavera MD Unavailable [phone] Sergey Tyson MD Unavailable Mena Mcwilliams RN Unavailable [phone] Encounter Details Date Type Department Care Team (Late st Contact Info) Description 09/04/2019 Ancillary Orders [facility] Internal Medicine [address] [place] [address] Karlos Lynos MD [address] [place] [address] [email or web address] Breast screening Social History Tobacco [...] Description 10/01/2025 10:30 AM EST Office Visit [address] [address] Sergey Tyson MD [address] [place] [address] Lorri Keenan CCC-PAPER SHEETER [address] [place] [address] 10/08/2025 10:30 AM EST Office Visit [facility] 8 [place] [address] Sergey Tyson MD [address] [place] [address] Lorri Keenan CCC-PAPER SHEETER [address] [place] [address] 10/08/2025 2:00 PM EST Office Visit [facility] Pulmonary, Allergy and Critical Care Medicine 10 [place] [address] Rj Leiva MD [address] [place] [address] [email or web address] 10/15/2025 10:30 AM EST Office Visit [address] [address] Sergey Tyson MD [address] [place] [address] Lorri Keenan CCC-PAPER SHEETER [address] [place] [address] 10/18/2025 8:30 AM EST Office Visit [address] [address] Sergey Tyson MD [address] [place] [address] Lorri Keenan CCC-PAPER SHEETER [address] [place] [address] 10/28/2025 9:30 AM EST Office Visit [address] [address] Sergey Tyson MD [address] [place] [address] Lorri Keenan CCC-PAPER SHEETER [address] [place] [address] 11/05/2025 10:30 AM EST Office Visit [address] [place] [address] Sergey Tyson MD [address] [place] [address] Lorri Keenan CCC-PAPER SHEETER [address] [place] [address] 11/19/2025 9:30 AM EST Office Visit [facility] 8 [place] [address] Sergey Tyson MD [address] [place] [address] Lorri Keenan CCC-PAPER SHEETER 8 [place] [address] 12/03/2025 11:30 AM EST Office Visit [facility] 8 [place] [address] Sergey Tyson MD [address] [place] [address] Lorri Keenan CCC-PAPER SHEETER 8 [place] [address] 12/10/2025 2:45 PM EST Office Visit [facility] Gastroenterology Clinic [address] [place] [address] Unknown, Unknown, MD Murry, Karlos Martines MD [address] [place] [address] 04/28/2026 8:00 AM EDT Office Visit [facility] Internal Medicine [address] [place] [address] Sergey Tyson MD [address] [place] [address] 05/20/2026 9:00 AM EDT Office Visit [facility] at [address] [address] Apple Talavera MD [address] [place] [address] [email or web address] documented as of this encounter [...] lowers the sensitivity of mammography. POS - [id number] Narrative 09/04/2019 11:32 AM EDT Full-field digital [...] whichlowers the sensitivity of mammography. POS - [id number] Karlos Lyons MD IMG MG EXAMS Final [...] documented as of this encounter Care Teams Strategy Specialist Relationship Specialty Start Date End Date Karlos Lyons MD [address] [place] [address] [email or web address] PCP - General Internal Medicine 07/14/14 05/07/21 Karlos Lyons MD [address] [place] [address] [email or web address] PCP - General Internal Medicine 05/08/21 05/09/22 Sergey Tyson MD [address] [place] [address] [email or web address] PCP - General Internal Medicine 05/10/22 Karlos Lyons MD [address] [place] [address] [email or web address] Insurance Assigned Provider 02/23/17 03/02/23 Omar Rocha MD [address] [place] [address] [email or web address] Physical Medicine and Rehabilitation 05/08/21 Sagar Leung MD [address] [place] [address] [address] [place] [address] Obstetrics and Gynecology 05/08/21 Yefri Hilliard MD [address] [place] [address] Endocrinology 05/08/21 Karlos Murry MD [address] [place] [address] Gastroenterology 02/27/22 Apple Talavera MD [address] [place] [address] Primary Oncologist Medical Oncology 02/19/23 Sergey Tyson MD [address] [place] [address] 87703 Insurance Assigned Provider 02/29/24 Mena Mcwilliams, RN 10 [place] [address] [email or web address] PHCM Senior Principal 11/13/23 12/11/23 documented as of this encounter Additional Source Comments The information contained in this document represents components of the legal health record. It is not the complete legal health record.[facility]
--- OUTSIDE RECORDS SUMMARY | 2025-09-28 16:00 | XMS_ITS | Encounter Summary ---
Author Organization [facility] Address [facility] [employer] [facility] [address] [place] [address] Phone Care Team Providers Care Ssds Mk 2 Advanced Operator Name Role Phone Karlos Lyons MD Unavailable [phone] Omar Rocha MD Unavailable Sagar Leung MD Unavailable Karlos Lyons MD Primary Care Provider Yefri Hilliard MD Unavailable [phone] Karlos Murry MD Unavailable [phone] Sergey Tyson MD Primary Care Provider [phone] Apple Talavera MD Unavailable [phone] Sergey Tyson MD Unavailable Mena Mcwilliams RN Unavailable [phone] Encounter Details Date Type Department Care Team (Late st Contact Info) Description 10/25/2021 Procedure Pass [address] [address] Social History Tobacco Use Types Packs/Day Years [...] Description 10/01/2025 10:30 AM EST Office Visit [facility] 8 [place] [address] Sergey Tyson MD [address] [place] [address] [email or web address] Lorri Keenan CCC-ENTERPRISE RESOURCE PLANNING CONSULTANT 8 [place] [address] 10/08/2025 10:30 AM EST Office Visit [facility] 8 [place] [address] Sergey Tyson MD [address] [place] [address] Lorri Keenan [facility] RESOURCE PLANNING CONSULTANT 8 [place] [address] 10/08/2025 2:00 PM EST Office Visit [facility] Pulmonary, Allergy and Critical Care Medicine [address] [place] [address] Rj Leiva MD [address] [place] [address] [email or web address] 10/15/2025 10:30 AM EST Office Visit [facility] 8 [place] [address] Sergey Tyson MD [address] [place] [address] Lorri Keenan CCC-ENTERPRISE RESOURCE PLANNING CONSULTANT 8 [place] [address] 10/18/2025 8:30 AM EST Office Visit [facility] 8 [place] [address] Sergey Tyson MD [address] [place] [address] Lorri Keenan CCC-ENTERPRISE RESOURCE PLANNING CONSULTANT [address] [place] [address] 10/28/2025 9:30 AM EST Office Visit [address] [address] Sergey Tyson MD [address] [place] [address] Lorri Keenan CCC-ENTERPRISE RESOURCE PLANNING CONSULTANT [address] [place] [address] 11/05/2025 10:30 AM EST Office Visit [facility] 8 [place] [address] Sergey Tyson MD [address] [place] [address] Lorri Keenan CCC-ENTERPRISE RESOURCE PLANNING CONSULTANT [address] [place] [address] 11/19/2025 9:30 AM EST Office Visit [address] [address] Sergey Tyson MD [address] [place] [address] Lorri Keenan CCC-ENTERPRISE RESOURCE PLANNING CONSULTANT 8 [place] [address] 12/03/2025 11:30 AM EST Office Visit [facility] 8 [place] [address] Sergey Tyson MD 40 [place] [address] Lorri Keenan CCC-ENTERPRISE RESOURCE PLANNING CONSULTANT 8 [place] [address] 12/10/2025 2:45 PM EST Office Visit [facility] Gastroenterology Clinic [address] [place] [address] Unknown, Unknown, MD Murry, Karlos Martines MD [address] [place] [address] 04/28/2026 8:00 AM EDT Office Visit [facility] Internal Medicine 40 [place] [address] Sergey yTson MD [address] [place] [address] 05/20/2026 9:00 AM EDT Office Visit [facility] 30 [place] [address] Apple Talavera MD [address] [place] [address] documented as of this encounter Visit Diagnoses Not on filedocumented in this encounter Additional Health Concerns Infection Onset Date Last Indicated Resolved Time CoV-Risk 05/07/2022 05/07/2022 05/18/2022 1:24 AM EDT Assessment Noted Time PHQ-2 Depression Total Score: 0 05/05/20 21 9:23 PM EDT documented as of this encounter Care Teams Ssds Mk 2 Advanced Operator Relationship Specialty Start Date End Date Karlos Lyons MD [address] [address] [email or web address] PCP - General Internal Medicine 05/08/21 05/09/22 Sergey Tyson MD [address] [place] [address] [email or web address] PCP - General Internal Medicine 05/10/22 Karlos Lyons MD [address] [place] [address] [email or web address] Insurance Assigned Provider 02/23/17 03/02/23 Omar Rocha MD [address] [place] [address] [email or web address] Physical Medicine and Rehabilitation 05/08/21 Sagar Leung MD [address] [place] [address] [email or web address] Obstetrics and Gynecology 05/08/21 Yefri Hilliard MD [address] [place] [address] Endocrinology 05/08/21 Karlos Murry MD [address] [place] [address] [email or web address] Gastroenterology 02/27/22 Apple Talavera MD [address] [place] [address] [email or web address] Primary Oncologist Medical Oncology 02/19/23 Sergey Tyson MD [address] [place] [address] [email or web address] Insurance Assigned Provider 02/29/24 Mena Mcwilliams, RN [address] [place] [address] [id number] [email or web address] [facility] Cobbler Apprentice 11/13/23 12/11/23 documented as of this encounter Additional Source Comments The information contained in this document represents components of the legal health record. It is not the complete legal health record.[facility]
--- OUTSIDE RECORDS SUMMARY | 2025-09-28 16:00 | XMS_ITS | Encounter Summary ---
Author Organization [facility] Address [address] [place] [address] [place] [address] Phone Care Team Providers Care Customer Support Consultant Name Role Phone Karlos Lyons MD Primary Care Provider + [phone] Karlos Lyons MD Unavailable [phone] Omar Rocha MD Unavailable [phone] Sagar Leung MD Unavailable Karlos Lyons MD Primary Care Provider + [phone] Yefri Hilliard MD Unavailable [phone] Karlos Murry MD Unavailable [phone] Sergey Tyson MD Primary Care Provider [phone] Apple Talavera MD Unavailable [phone] Sergey Tyson MD Unavailable Mena Mcwilliams RN Unavailable [phone] Reason for Referral * Consultation (Within 1 month) - Closed Specialty Diagnoses / Procedures Referred By Jessica balbuena Referred To Contact Rheumatology Marquita Jacobo MD Phone: tel: fax: [email or web address] Referral ID Status Reason Start Date Expiration Date Visits Re quested Visits Authorized [id number] Closed 05/30/2018 05/31/2019 1 1 Encounter Details Date Type Department Care Team (Late Contact Info) Description 05/30/2018 Transcribe Orders [facility] Rheumatology [address], [address] Floor, [address] [place] [address] Marquita Jacobo MD [address] [facility] [address] [place] [phone] [email or web address] Social History Tobacco Use Types Packs/Day Years [...] 10/01/2025 10:30 AM EST Office Visit [facility] 8 [place] [address] Sergey Tyson MD [address] [place] [address] [email or web address] Lorri Keenan, [facility] 8 [place] [address] 10/08/2025 10:30 AM EST Office Visit [facility] 8 [place] [address] Sergey Tyson MD [address] [place] [address] Lorri Keenan [employer] 8 [place] [address] 10/08/2025 2:00 PM EST Office Visit [facility] Pulmonary, Allergy and Critical Care Medicine 10 [place] [address] Rj Leiva MD [address] [place] [address] [email or web address] 10/15/2025 10:30 AM EST Office Visit [facility] 8 [place] [address] Sergey Tyson MD [address] [place] [address] Lorri Keenan CCC-[employer] 8 [place] [address] 10/18/2025 8:30 AM EST Office Visit [facility] 8 [place] [address] Sergey Tyson MD [address] [place] [address] Lorri Keenan [employer] 8 [place] [address] 10/28/2025 9:30 AM EST Office Visit [facility] 8 [place] [address] Sergey Tyson MD [address] [place] [address] Lorri Keenan [employer] 8 [place] [address] 11/05/2025 10:30 AM EST Office Visit [facility] 8 [place] [address] Sergey Tyson MD [address] [place] [address] Lorri Keenan [employer] 8 [place] [address] 11/19/2025 9:30 AM EST Office Visit [facility] 8 [place] [address] Sergey Tyson MD [address] [place] [address] Lorri Keenan [employer] 8 [place] [address] 12/03/2025 11:30 AM EST Office Visit [facility] 8 [place] [address] Sergey Tyson MD [address] [place] [address] Lorri Keenan [employer] 8 [place] [address] 12/10/2025 2:45 PM EST Office Visit [facility] Gastroenterology Clinic [address] [place] [address] Unknown, Unknown, MD Murry, Karlos Martines MD [address] [place] [address] 04/28/2026 8:00 AM EDT Office Visit [facility] Internal Medicine 40 [place] [address] Sergey Tyson MD 40 [place] [address] [email or web address] 05/20/2026 9:00 AM EDT Office Visit [facility] 30 [place] [address] Apple Talavera MD [address] [place] [address] [email or web address] Scheduled Referrals Name Type Priority Associated Diagnoses Order Schedule Ambulatory referral to [facility] Rheumatology Outpatient Referral Routine Ordered: 05/30/2018 documented as of this encounter Visit Diagnoses Not on filedocumented in this encounter Additional Health Concerns Infection Onset Date Last Indicated Resolved Time CoV-Risk 05/07/2022 05/07/2022 05/18/2022 1:24 AM EDT documented as of this encounter Care Teams Customer Support Consultant Relationship Specialty Start Date End Date Karlos Lyons MD [address] [place] [address] [email or web address] PCP - General Internal Medicine 07/14/14 05/07/21 Karlos Lyons MD [address] [place] [address] [email or web address] PCP - General Internal Medicine 05/08/21 05/09/22 Sergey Tyson MD [address] [place] [address] [email or web address] PCP - General Internal Medicine 05/10/22 Karlos Lyons MD [address] [address] [email or web address] Insurance Assigned Provider 02/23/17 03/02/23 Omar Rocha MD [address] [place] [address] [email or web address] Physical Medicine and Rehabilitation 05/08/21 Sagar Leung MD [address] [place] [address], [facility] 102 [place] [address] Obstetrics and Gynecology 05/08/21 Yefri Hilliard MD [address] [place] [address] Endocrinology 05/08/21 Karlos Murry MD [address] [place] [address] Gastroenterology 02/27/22 Apple Talavera MD [address] [place] [address] Primary Oncologist Medical Oncology 02/19/23 Sergey Tyson MD [address] [place] [address] Insurance Assigned Provider 02/29/24 Mena Mcwilliams, RN [address] [place] [address] [email or web address] PHCM Operations Architect 11/13/23 12/11/23 documented as of this encounter Additional Source Comments The information contained in this document represents components of the legal health record. It is not the complete legal health record.[facility]
--- OUTSIDE RECORDS SUMMARY | 2025-09-28 16:00 | XMS_ITS | Encounter Summary ---
Author Organization [facility] Address [address] [place] [address] Phone Care Team Providers Care Heavy Equipment Operator Apprentice Name Role Phone Karlos Lyons MD Primary Care Provider Karlos Lyons MD Unavailable [phone] Omar Rocha MD Unavailable [phone] Sagar Leung MD Unavailable Karlos Lyons MD Primary Care Provider + [phone] Yefri Hilliard MD Unavailable [phone] Karlos Murry MD Unavailable [phone] Sergey Tyson MD Primary Care Provider [phone] Apple Talavera MD Unavailable [phone] Sergey Tyson MD Unavailable Mena Mcwilliams RN Unavailable [phone] Reason for Referral * Outpatient Procedure - Closed Specialty Diagnoses / Procedures Referred By Jessica balbuena Referred To Contact Radiology Diagnoses Dyspepsia Procedures NM Gastric Emptying Karlos Murry MD Phone: tel: fax: mailto: Referral ID Status Reason Start Date Expiration Date Visits Re quested Visits Authorized [id number] Closed 01/09/2018 01/09/2019 1 1 Encounter Details Date Type Department Care Team (Late st Contact Info) Description 01/09/2018 Ancillary Orders Virtual Department 30 [place] [address] Karlos Murry MD [address] [address] Dyspepsia Social History Tobacco Use Types Packs/Day [...] Description 10/01/2025 10:30 AM EST Office Visit [address] [address] Sergey Tyson MD [address] [place] [address] Lorri Keenan CCC-PROOF TECHNICIAN [address] [place] [address] 10/08/2025 10:30 AM EST Office Visit [address] [address] Sergey Tyson MD [address] [place] [address] [phone] Lorri Keenan CCC-PROOF TECHNICIAN 8 [place] [address] 10/08/2025 2:00 PM EST Office Visit [facility] Pulmonary, Allergy and Critical Care Medicine 10 [place] [address] Rj Leiva MD 30 [place] [address] [email or web address] 10/15/2025 10:30 AM EST Office Visit [address] [address] Sergey Tyson MD [address] [place] [address] Lorri Keenan CCC-PROOF TECHNICIAN [address] [place] [address] 10/18/2025 8:30 AM EST Office Visit [address] [address] Sergey Tyson MD [address] [place] [address] Lorri Keenan CCC-PROOF TECHNICIAN 8 [place] [address] 10/28/2025 9:30 AM EST Office Visit [address] [address] Sergey Tyson MD [address] [place] [address] Lorri Keenan CCC-PROOF TECHNICIAN 8 [place] [address] 11/05/2025 10:30 AM EST Office Visit [facility] 8 [place] [address] Sergey Tyson MD [address] [place] [address] Lorri Keenan CCC-PROOF TECHNICIAN 8 [place] [address] 11/19/2025 9:30 AM EST Office Visit [facility] 8 [place] [address] Sergey Tyson MD [address] [place] [address] [email or web address] Lorri Keenan CCC-PROOF TECHNICIAN 8 [place] [address] 12/03/2025 11:30 AM EST Office Visit [facility] 8 [place] [address] Sergey Tyson MD [address] [place] [address] Lorri Keenan CCC-PROOF TECHNICIAN 8 [place] [address] 12/10/2025 2:45 PM EST Office Visit [facility] Gastroenterology Clinic [address] [place] [address] Unknown, Unknown, Karlos Henning MD [address] [place] [address] 04/28/2026 8:00 AM EDT Office Visit [facility] Internal Medicine 40 [place] [address] Sergey Tyson MD 40 [place] [address] [email or web address] 05/20/2026 9:00 AM EDT Office Visit [facility] at [address] [address] Apple Talavera MD [address] [place] [address] [email or web address] documented [...] documented as of this encounter Care Teams Heavy Equipment Operator Apprentice Relationship Specialty Start Date End Date Karlos Lyons MD [address] [place] [address] [email or web address] PCP - General Internal Medicine 07/14/14 05/07/21 Karlos Lyons MD [address] [place] [address] [email or web address] PCP - General Internal Medicine 05/08/21 05/09/22 Sergey Tyson MD [address] [place] [address] [email or web address] PCP - General Internal Medicine 05/10/22 Karlos Lyons MD [address] [place] [address] [email or web address] Insurance Assigned Provider 02/23/17 03/02/23 Omar Rocha MD [address] [place] [address] [email or web address] Physical Medicine and Rehabilitation 05/08/21 Sagar Leung MD [address] [place] [address], [address] [place] [address] Obstetrics and Gynecology 05/08/21 Yefri Hilliard MD [address] [place] [address] Endocrinology 05/08/21 Karlos Murry MD [address] [place] [address] Gastroenterology 02/27/22 Apple Talavera MD [address] [place] [address] Primary Oncologist Medical Oncology 02/19/23 Sergey Tyson MD [address] [place] [address] Insurance Assigned Provider 02/29/24 Mena Mcwilliams RN [address] [place] [address] [email or web address] PHCM [employer] Site Monitor 11/13/23 12/11/23 documented as of this encounter Additional Source Comments The information contained in this document represents components of the legal health record. It is not the complete legal health record.[facility]
== END 2025-09-28 13:08 | disposition home or self-care (01) ==
LOC: HO.LAB 13:07
PROVIDERS: PCP Internal Medicine; Visit Provider Nurse Practitioner
DX: R71.8 Other abnormality of red blood cells (principal)
CPT/HCPCS: 36415; 85025

== ENCOUNTER 2025-11-08 09:17 | Outpatient (REF) | payer MEDICARE, BC, SELFPAY ==
--- NOTE | ~2025-11-08 | CT_ITS ---
EXAMINATION: CT SINUS WITHOUT CONTRAST CLINICAL INFORMATION: Sinusitis. COMPARISON: None available. TECHNIQUE: Contiguous axial images through the paranasal sinuses using 2 mm collimation with bone and soft tissue algorithm. Sagittal and coronal reformatted images acquired. This CT examination was performed using dose optimization techniques as appropriate, variously including the following: *Automated exposure control *Adjustment of mA and/or kV according to patient size (this includes techniques or standardized protocols for targeted exams where dose is matched to indication/reason for exam; i.e. extremities or head) *Use of iterative reconstruction technique DLP: 94.1 mGy-cm FINDINGS: The paranasal sinuses are well pneumatized and aerated. No air-fluid levels. Mild mucosal thickening, ethmoid cells and maxillary sinuses. Ostiomeatal units are patent. Nasal cavity, vestibule and nostrils are patent. Nasal septum is intact. 3.5 mm right midline spur, nasal septum. Cribriform plate is intact. The orbits are intact. Vidian canal is type 1, bilaterally Foramen rotundum is intact, bilaterally. Foramina bilaterally is intact bilaterally. Degenerative changes in the right temporal mandibular joint. Incomplete left-sided intrasellar septum attached to the anterior margin of the left carotid canals. The carotid canals are intact. Tympanic cavities and mastoid cells are aerated. Calcified plaques in the cavernous supracavernous segments both ICAs. The eyeballs are intact. No masses or fluid collections in the intraconal or extraconal compartments of the orbits. CT/CT sinus wo IV con IMPRESSION: Mild chronic maxillary sinus disease. Electronically signed by: Mariano Birch MD 11/08/2025 11:30 AM EST
--- NOTE | ~2025-11-08 | CT_ITS ---
EXAMINATION: CT CHEST WITHOUT CONTRAST CLINICAL INFORMATION: Pneumonia COMPARISON: CT 05/22/2025 TECHNIQUE: Multidetector volumetric CT imaging of the chest was done. Axial MIP volume rendering provided. Sagittal and coronal reformatted images were obtained. This CT examination was performed using dose optimization techniques as appropriate, variously including the following: *Automated exposure control *Adjustment of mA and/or kV according to patient size (this includes techniques or standardized protocols for targeted exams where dose is matched to indication/reason for exam; i.e. extremities or head) *Use of iterative reconstruction technique FINDINGS: LUNGS: Trachea and central airway are patent. There is new confluent airspace opacity in the anterior aspect of the inferior lingula. Multifocal airspace opacities in bilateral lungs. The opacity in the anterior aspect of right upper lobe, slightly improved from previous. Confluent opacity in the left lower lobe measuring 1.5 cm transverse, (image 6/95) new from previous. There are multifocal opacities, tree-in-bud opacities in bilateral lungs, left greater than right, slightly improved from previous. MEDIASTINUM: No suspicious thyroid findings. No mediastinal or hilar lymphadenopathy. Normal heart size. Question trace pericardial effusion anteriorly. Ascending aorta measures 3 cm. CORONARY ARTERY CALCIFICATION: Present PLEURA: There is no pleural effusion. No pleural mass or thickening. No pneumothorax. AXILLA: No lymphadenopathy. CHEST WALL: Left breast implant redemonstrated. UPPER ABDOMEN: No acute findings OSSEOUS STRUCTURES: Thoracolumbar spondylosis. No destructive bony lesion. Partially cervical spinal hardware CT/CT chest wo IV con IMPRESSION: 1. Multifocal airspace opacities in bilateral lungs. There is a new confluent opacity in the lingula and in the left lower lobe. Redemonstrated multifocal opacities and tree-in-bud opacities in bilateral lungs, slightly improved from previous. Differential consideration include inflammatory, infectious etiologies. Recommend follow-up CT to ensure resolution. 2. Additional findings and details above. Fleischner guidelines were followed. Electronically signed by: Cm Harrell MD 11/09/2025 09:45 AM JULIUS
== END 2025-11-08 09:18 | disposition home or self-care (01) ==
LOC: HO.CT 09:17
PROVIDERS: Visit Provider Internal Medicine Pulmonary Disease
DX: R05.3 Chronic cough (principal); J18.9 Pneumonia, unspecified organism; J32.9 Chronic sinusitis, unspecified
CPT/HCPCS: 70486; 71250

== ENCOUNTER → 2025-11-08 09:52 | Outpatient (BNV) | payer MEDICARE, BC, SELFPAY | PROVIDERS: Visit Provider Radiology Diagnostic Radiology | DX: J32.0 Chronic maxillary sinusitis (principal) | CPT/HCPCS: 70486; 71250 ==

== ENCOUNTER 2025-11-10 08:53 | Outpatient (AMB) | payer MEDICARE, BC, SELFPAY ==
--- OUTSIDE RECORDS SUMMARY | 2025-11-08 | XMS_ITS | Encounter Summary ---
Author Organization [facility] Address [facility] [address] [place] [address] Phone Care Team Providers Care Shaving Machine Operator Name Role Phone Omar Rocha MD Unavailable Sagar Leung MD Unavailable Yefri Hilliard MD Unavailable Karlos Murry MD Unavailable [phone] Sergey Tyson MD Primary Care Provider Apple Talavera MD Unavailable [phone] Sergey Tyson MD Unavailable Encounter Details Date Type Department Care Team (Late st Contact Info) Description 11/08/2025 Hospital Encounter [facility],Outside Imaging [address] [place], [place] [id number] Unknown, Unknown, MD Arrived Social History Tobacco Use Types Packs/Day Years [...] Care Team (Late st Contact Info) Description 12/03/2025 11:30 AM EST Office Visit [facility] Speech Therapy [facility] [address] [place] [address] Sergey Tyson MD [address] [place] [phone] Lorri Keenan, CCC-BODY TECHNICIAN [address] [place] [address] 12/10/2025 2:45 PM EST Office Visit [facility] [address] [place] [phone] Unknown, Unknown, Karlos Henning MD [address] [place] [phone] 02/02/2026 10:00 AM EDT Office Visit [facility] Pul[facility]ology[facility] All[facility] [address] [place] [phone] Rj Leiva MD [address] [place] [phone] [email or web address] 04/28/2026 8:00 AM EDT Office Visit [facility] [address] [place] [address] [phone] Sergey Tyson MD [address] [place] [address] [phone] 05/20/2026 9:00 AM EDT Office Visit [facility] [place] [facility] at [address] [phone] Apple Talavera MD [address] [place] [address] [email or web address] documented as of this encounter Procedures Procedure Name Priority Date/Time Associated Diagnosis Comments CT CHEST OUTSIDE (NO INTERPRETATION) Routine 11/08/2025 12:00 AM EST documented in this encounter Results * CT Chest Outside (No Interpretation) (11/08/2025 12:00 AM EST) Narrative SYSTEMGENERATED, DOCUMENTATION - 11/09/2025 12:50 PM EST This study is for PACS storage only and not for interpretation. us Unknown Unknown MD BONDS OUTSIDE IMAGING W/OUT INT ERPRETATION Final Result documented in this encounter Visit Diagnoses Not on filedocumented in this encounter Additional Health Concerns Assessment Noted Time PHQ-9 Depression Total Score: 3 09/11/20 24 9:24 AM EDT PHQ-2 Depression Total Score: 0 04/07/20 25 12:34 PM EDT documented as of this encounter Care Teams Shaving Machine Operator Relationship Specialty Start Date End Date Sergey Tyson MD [address] [place] [phone] [email or web address] PCP - General Internal Medicine 05/10/22 Omar Rocha MD [email or web address] Physical Medicine and Rehabilitation 05/08/21 Sagar Leung MD [address] [place] [address], [address] [place] [address] [email or web address] Obstetrics and Gynecology 05/08/21 Yefri Hilliard MD [address] [place] [phone] Endocrinology 05/08/21 Karlos Murry MD [address] [place] [phone] [email or web address] Gastroenterology 02/27/22 Apple Talavera MD [address] [place] [phone] [email or web address] Primary Oncologist Medical Oncology 02/19/23 Sergey Tyson MD [address] [place] [phone] [email or web address] Insurance Assigned Provider 02/29/24 documented as of this encounter Additional Source Comments The information contained in this document represents components of the legal health record. It is not the complete legal health record.[facility]
--- NOTE | 2025-11-10 09:00 | MHC.OFFVIS ---
Vital Signs 11/10/25 09:01 Height 5 ft 6 in Weight 111 lb BMI 17.9 BP 157/77 H Blood Pressure Location Rt brachial Position Sitting Pulse 73 Intake Visit Reasons: SSBE, diarrhea wt loss Intake Note: Kaylyn presents in follow up of diarrhea and wt loss. CC: Pt c/o diarrhea about 4-5 times daily and reports that stools are an orange color, nausea, and abd pain when she needs to have a BM. Cheese Production Supervisor Required: No Accompanied by: Self / Same As Patient Allergies adhesive tape Allergy (Verified 11/10/25 09:13) Unknown atenolol (From Tenormin) Allergy (Verified 11/10/25 09:13) Unknown cefaclor (From Ceclor) Allergy (Verified 11/10/25 09:13) Unknown Chocolate Allergy (Verified 11/10/25 09:13) Unknown ciprofloxacin (From Cipro) Allergy (Verified 11/10/25 09:13) Unknown colchicine Allergy (Verified 11/10/25 09:13) Unknown cortisone Allergy (Verified 11/10/25 09:13) Unknown dicyclomine Allergy (Verified 11/10/25 09:13) Unknown gabapentin Allergy (Verified 11/10/25 09:13) Unknown indomethacin Allergy (Verified 11/10/25 09:13) Unknown Iodinated Contrast Media (Contrast Dye) Allergy (Verified 11/10/25 09:13) Unknown latex Allergy (Verified 11/10/25 09:13) Unknown levofloxacin (From Levaquin) Allergy (Verified 11/10/25 09:13) Anaphylaxis lisinopril Allergy (Verified 11/10/25 09:13) Unknown monosodium glutamate Allergy (Verified 11/10/25 09:13) Unknown morphine Allergy (Verified 11/10/25 09:13) Unknown NSAIDS (Non-Steroidal Anti-Inflamma Allergy (Verified 11/10/25 09:13) Unknown penicillin G Allergy (Verified 11/10/25 09:13) Unknown perfume Allergy (Verified 11/10/25 09:13) Unknown povidone-iodine (From Betadine) Allergy (Verified 11/10/25 09:13) Unknown propranolol Allergy (Verified 11/10/25 09:13) Unknown Sulfa (Sulfonamide Antibiotics) Allergy (Verified 11/10/25 09:13) Unknown tamsulosin Allergy (Verified 11/10/25 09:13) Unknown tetracycline Allergy (Verified 11/10/25 09:13) Unknown tramadol Allergy (Verified 11/10/25 09:13) Unknown trazodone Allergy (Verified 11/10/25 09:13) Unknown triamcinolone Allergy (Verified 11/10/25 09:13) Unknown venom-honey bee Allergy (Verified 11/10/25 09:13) Unknown fentanyl patch Allergy (Uncoded 05/05/25 10:36) Unknown HPI HPI SSBE, diarrhea wt loss: Details: Assessment & Plan (1) Chronic sinusitis: Code(s): J32.9 - Chronic sinusitis, unspecified Category: Medical (2) RUQ abdominal mass: Code(s): R19.01 - Right upper quadrant abdominal swelling, mass and lump Category: Medical (3) Elevated MCV: Code(s): R71.8 - Other abnormality of red blood cells Category: Medical Plan She continues on her nizatidine, simethicone, and Zofran PRN. - The patient is a 75-year-old female presenting with gastrointestinal complaints and management of ongoing symptoms. - Reported discomfort from a lipoma assessed via ultrasound, showing an ovoid heterogenous hypoechoic solid nodule. Because it causes her discomfort we will refer her to General surgery for excision and definitive diagnosis. - Demonstrates esophageal dysmotility contributing to swallowing difficulties as noted by a modified barium swallow assessment. - Recurrent bouts of GI-associated lower abdominal burn leading to prolonged nausea episodes.Elevated fecal calprotectin; concerns of early inflammatory bowel disease versus IBS or potentially microscopic colitis. I look forward to her colonoscopy/EGD to help clarify the underlying cause. - Stools are mostly normal, with infrequent hard, bark-like segments observed. - Exhibits macrocytic anemia, with elevated MCV but has normal B12, leading to unspecific underlying causation. She is being referred to Hematology to further explore this since she does not drink alcohol and has a normal B12 level. - Persistent nasal congestion treated with nasal spray, particularly Flonase, offering temporary relief but without complete resolution. I recommend referral to an ear nose throat specialist since her dental insurance coordinator has not been able to solve this problem, and it really sounds like it starts in the sinuses. . Return office visit in 3 months Orders: Referrals Ear/Nose/Throat Referral J32.9 - Chronic sinusitis, unspecified General Surgery Referral R19.01 - Right upper quadrant abdominal swelling, mass and lump Hematology & Oncology Referral R71.8 - Other abnormality of red blood cells TODAYS VISIT [facility] Medical History RUQ abdominal pain Fatty stools H. pylori infection Esophageal spasm History of breast cancer History of vertebral compression fracture History of pelvic fracture History of thyroid irradiation History of basal cell cancer History of squamous cell carcinoma History of pyelonephritis Surgical History S/P bilateral cataract extraction H/O bilateral mastectomy S/P rotator cuff repair Status post de Quervain release surgery H/O spinal fusion History of augmentation mammoplasty H/O cervical spinal arthrodesis H/O esophagogastroduodenoscopy H/O colonoscopy H/O section Social History Alcohol intake: never Patient Tobacco Use Status: Never used Tobacco Review of Systems Const Denies fatigue, Denies fever(s), Denies night sweats, Denies poor appetite and Denies weight loss ENT Reports Normal hearing present, Denies dental pain, Denies dysphagia, Denies hearing loss, Denies mouth pain, Denies odynophagia, Denies throat swelling, Denies tongue swelling and Reports other (Dentition adequate) Card Reports no additional complaints Resp Reports no additional complaints GI Details: Denies abdominal pain, Denies melena, Denies bloating, Denies hematochezia, Denies constipation, Denies GI cramping, Denies dysphagia, Denies excessive flatus, Reports early satiety, Denies heartburn, Reports diarrhea, Denies nausea, Denies odynophagia, Denies vomiting and Denies hematemesis Skin/Breast Denies pruritus, Denies lesions, Denies rash and Denies jaundice Neuro Reports Normal hearing present and Denies Abnormal speech present Endo Denies fatigue Aller/Immun Denies throat swelling and Denies tongue swelling Physical Exam Vital Signs: Last Vital Signs Pulse 73 11/10/25 09:01 BP 157/77 H 11/10/25 09:01 BMI result Body Mass Index 17.9 Const General: cooperative, no acute distress, well developed and well groomed Nutritional Appearance: well nourished and underweight Orientation/consciousness: oriented to person, oriented to place and oriented to time Limitations: No language barrier HEENT Head: Yes normocephalic and Yes atraumatic Eyes General: appearance normal, both eyes and all related structures Pupils: Equal, round and reactive pupils present Neck Neck: Yes normal visual inspection and Yes no lymphadenopathy Thyroid: Thyroid normal Resp Effort & Inspection: normal respiratory effort and able to speak in complete sentences Auscultation: clear to auscultation bilaterally Cardio Rate: regular rate Rhythm: regular rhythm Heart sounds: Normal, physiologic split S2 sound present Peripheral pulses: radial pulses present and posterior tibial pulses present GI Inspection: No distended and No Abdominal panniculus present Palpation (GI): Soft to palpation, Tenderness to palpation present (GI) in the LLQ and in the RUQ, no guarding, not rigid and No hepatosplenomegaly present Percussion: Yes normal to percussion Auscultation: normal bowel sounds Rectal Exam - Female: deferred Skin General skin exam: no rashes or lesions noted, turgor normal, skin not dry, no jaundice, No spider nevi and no striae Rashes: no rashes Nails: normal Neuro General: oriented to person, oriented to place and oriented to time Cranial nerves: Yes Equal, round and reactive pupils present and Yes Normal hearing present Speech: No Abnormal speech present Extrem General: Yes normal to inspection, No clubbing, No cyanosis and No edema Psych Appearance: grossly normal and well kempt Mental Status: mental status grossly normal Speech and movement: Normal speech and movement present Affect: normal affect Attitude: cooperative Thought process: Normal thought process present and not confabulating Thought content: Normal thought content present Insight: Good insight present (Psych) Judgement: Good judgement present (Psych) Assessment & Plan Assessment & Plan (1) IBS (irritable bowel syndrome): Code(s): K58.9 - Irritable bowel syndrome, unspecified Category: Medical (2) Diarrhea: Code(s): R19.7 - Diarrhea, unspecified Category: Medical Plan She continues on her nizatidine, simethicone, budesonide and Zofran PRN. We are adding Creon at this visit (IBD genetics are negative, stool calprotectin is mildly elevated at 80, CRP is normal, food allergy testing was entirely negative, prior motility testing at [facility] she reports as showing hypermotility, she has been treated twice for H pylori without successful eradication, negative ultrasound and HIDA scan, she has multiple drug allergies including most antibiotics, most opioids, and IV contrast which is not an inclusive list. She is also allergic to cortisone.) Subjective Patient presents for follow-up of chronic gastrointestinal symptoms. Reports longstanding gas, bloating, and episodes of orange diarrheal stools. Notes early satiety/fullness after small amounts of intake for years, resulting in difficulty gaining weight; states food smells and tastes good but can only tolerate very small portions and often relies on liquids (e.g., yogurt, eggnog, Activia). Reports constant right upper quadrant and left lower quadrant abdominal pain, not fluctuating with eating or bowel movements. States budesonide taken around 10:00 provides relief of ?stomach aggravation? within an hour. Nizatidine twice daily has been helpful for gastric symptoms. Denies current respiratory symptoms; voice has recently improved with less cough. Concerned about new scattered purple skin holt after taking prednisolone for sinusitis. Relevant Past Medical, Social, and Family History - History of thyroid disease in the past with prior weight fluctuations. Objective - Skin: Scattered small purple holt consistent with easy bruising at the capillary level observed after recent prednisolone use. - Imaging review: Chest CT demonstrates multiple pulmonary opacities, including a focal area on the left and smaller opacities scattered elsewhere. Etiology unclear (inflammatory vs infectious). Sinus CT shows mild chronic sinusitis. Assessment & Plan Chronic diarrhea with gas/bloating; possible exocrine pancreatic insufficiency: Ongoing gas, bloating, and orange diarrheal stools. Plan for empiric treatment given limited medication options due to multiple allergies and pending further diagnostics. - Start pancreatic digestive enzyme supplement: two caplets twice daily (weight-based, lowest dose) as a prescriptive supplement. - Continue budesonide as currently used for symptomatic relief. - Continue nizatidine twice daily as tolerated. - Monitor for reduction in gas, bloating, and orange diarrheal stools; reassess at follow-up. Early satiety and difficulty maintaining/gaining weight: Longstanding early satiety with limited intake; weight gain remains a goal. - Order repeat gastric emptying study to evaluate for delayed gastric emptying. - Proceed with scheduled EGD and colonoscopy in November; anticipate routine biopsies to aid evaluation. - Schedule follow-up visit after procedures (allow ~2 weeks for pathology results). Abdominal pain (RUQ and LLQ), constant, not meal- or bowel-related: Persistent symptoms. - Evaluate in context of upcoming EGD/colonoscopy and gastric emptying study. Abnormal chest CT with multifocal pulmonary opacities: Unusual pattern with scattered opacities; patient currently feeling improved. - Defer interpretation and management to pulmonology; patient to follow with Dr. Leiva ([facility]). Patient to update me with pulmonology recommendations. Easy bruising related to recent prednisolone use: Likely steroid-associated capillary fragility. - Reassurance provided; expected to resolve. Preparation for upcoming colonoscopy/EGD - Prescribed Soup Prep (two small bottles) for lower-volume bowel preparation due to intolerance of large-volume regimens. Hematology referral coordination - Patient completed requested blood work; advised to call hematology (Dr. Machado/Dr. Miranda) to schedule appointment. Follow-up: Schedule post-procedure follow-up after EGD/colonoscopy and gastric emptying study; sooner if symptoms worsen or medication intolerance occurs. COLONOSCOPY 12/22/2025 BIOPSY Orders: Orders NM gastric emptying study Today K58.9 - Irritable bowel syndrome, unspecified, R19.7 - Diarrhea, unspecified Medications: New hozcwd-ginpwlqx-glvfcdh (pork) 3,000-9,500- 15,000 unit (Creon) do not exceed 10,000 unit/kg lipase per 24 hrs 2 caps PO BID 120 caps 6RF 30 days K58.9 - Irritable bowel syndrome, unspecified simethicone 125 mg PO TID PRN 90 caps 6RF GI UPSET sodium,potassium,mag sulfates 17.5-3.13-1.6 gram (Suprep Bowel Prep Kit) 480 mL orally; FOR COLONOSCOPY PREP 354 mL 0RF Refilled budesonide DR-ER PLEASE DISREGARD IMURAN/AZATHIOPRINE RX 9 mg (3 x 3 mg) PO DAILY 90 ea 6RF R19.5 - Other fecal abnormalities nizatidine 150 mg PO BID 180 caps 0RF Coding Level of Care Code Est Pt Level 3 (10173) Diagnoses IBS (irritable bowel syndrome) K58.9 Diarrhea R19.7
[2025-11-10 09:01] VITALS: BP 157/77; PULSE 73; BMI 17.9
--- OUTSIDE RECORDS SUMMARY | 2025-11-10 09:26 | XMS_ITS | Encounter Summary ---
Author Organization [facility] Address [facility] [employer] [facility] [address] [place] [address] Phone Care Team Providers Care Photogeologist Name Role Phone Karlos Lyons MD Primary Care Provider Karlos Lyons MD Unavailable [phone] Omar Rocha MD Unavailable [phone] Sagar Leung MD Unavailable Karlos Lyons MD Primary Care Provider + [phone] Yefri Hilliard MD Unavailable [phone] Karlos Murry MD Unavailable [phone] Sergey Tyson MD Primary Care Provider Apple Talavera MD Unavailable [phone] Sergey Tyson MD Unavailable Mena Mcwilliams RN Unavailable [phone] Encounter Details Date Type Department Care Team (Latest Contact Info) Description 01/27/2018 Prep for Procedure [facility] [place] [facility] at [facility] 30 [place], [place] [phone] Apple Talavera MD 30 [place] [address] Malignant neoplasm of overlapping sites of left [...] Description 12/03/2025 11:30 AM EST Office Visit [facility] Speech Therapy Clinic 8 [place] [address] Sergey Tyson MD [address] [place] [address] Lorri Keenan, CCC-ROCK ROOM WORKER 8 [place] [address] 12/10/2025 2:45 PM EST Office Visit [facility] Gastroenterology Clinic 10 [place] [address] Unknown, Unknown, MD Murry, Karlos Martines MD [address] [place] [address] 02/02/2026 10:00 AM EDT Office Visit [facility] Pulmonology, Allergy and Critical Care Medicine Clinic 10 [place] [address] Rj Leiva MD 30 [place] [address] josé 04/28/2026 8:00 AM EDT Office Visit [facility] Primary Care Clinic 40 [place] [address] Sergey Tyson MD 40 [place] [address] [email or web address] 05/20/2026 9:00 AM EDT Office Visit [facility] [place] [facility] at [facility] 30 [place] [address] Apple Talavera MD [address] [place] [address] [email or web address] documented as of this encounter Visit Diagnoses Diagnosis Malignant neoplasm of overlapping sites of left breast in female, estrogen receptor positive documented in this encounter Additional Health Concerns Infection Onset Date Last Indicated Resolved Time CoV-Risk 05/07/2022 05/07/2022 05/18/2022 1:24 AM EDT documented as of this encounter Care Teams Photogeologist Relationship Specialty Start Date End Date Karlos Lyons MD [address] [place] [address] [email or web address] PCP - General Internal Medicine 07/14/14 05/07/21 Karlos Lyons MD [address] [place] [address] [email or web address] PCP - General Internal Medicine 05/08/21 05/09/22 Sergey Tyson MD [address] [place] [address] [email or web address] PCP - General Internal Medicine 05/10/22 Karlos Lyons MD [address] [place] [address] [email or web address] Insurance Assigned Provider 02/23/17 03/02/23 Omar Rocha MD [address] [place] [address] 101 [place] [address] [email or web address] 05/08/21 Sagar Leung MD [address] [place] [address] 102 [place] [address] Obstetrics and Gynecology 05/08/21 Yefri Hilliard MD [address] [place] [address] Endocrinology 05/08/21 Karlos Murry MD [address] [place] [address] Gastroenterology 02/27/22 Apple Talavera MD [address] [place] [address] Primary Oncologist Medical Oncology 02/19/23 Sergey Tyson MD [address] [place] [address] Insurance Assigned Provider 02/29/24 Mena Mcwilliams RN [address] [place] [address] [email or web address] PHCM Dexigraph Operator 11/13/23 12/11/23 documented as of this encounter Additional Source Comments The information contained in this document represents components of the legal health record. It is not the complete legal health record.[facility]
--- OUTSIDE RECORDS SUMMARY | 2025-11-10 09:26 | XMS_ITS | Encounter Summary ---
Author Organization [facility] Address [address] [place] [address] 985 [place] [address] Phone Care Team Providers Care Tools And Parts Attendant Name Role Phone Karlos Lyons MD Primary Care Provider Karlos Lyons MD Unavailable [phone] Omar Rocha MD Unavailable [phone] Sagar Leung MD Unavailable Karlos Lyons MD Primary Care Provider + [phone] Yefri Hilliard MD Unavailable [phone] Karlos Murry MD Unavailable [phone] Sergey Tyson MD Primary Care Provider Apple Talavera MD Unavailable [phone] Sergey Tyson MD Unavailable Mena Mcwilliams RN Unavailable [phone] Encounter Details Date Type Department Care Team (Late st Contact Info) Description 04/20/2021 Procedure Pass [facility] Endoscopy Admitting Dept Virtual Department 30 [place] [address] Social History Tobacco Use Types [...] Description 12/03/2025 11:30 AM EST Office Visit [facility] [address] [place] [address] Sergey Tyson MD [address] [place] [address] Lorri Keenan, CCC-DRUG SAFETY COORDINATOR [address] [place] [address] 12/10/2025 2:45 PM EST Office Visit [facility] Gastroenterology Clinic [address] [place] [address] Unknown, Unknown, Karlos Henning MD [address] [place] [address] 02/02/2026 10:00 AM EDT Office Visit [facility] Pulmonology, Allergy and Critical Care Medicine Clinic 10 [place] [address] Rj Leiva MD [address] [place] [address] josé 04/28/2026 8:00 AM EDT Office Visit [facility] Primary Care Clinic [address] [place] [address] [phone] Sergey Tyson MD 40 [place] [address] [email or web address] 05/20/2026 9:00 AM EDT Office Visit [facility] [place] Hematology Oncology Clinic at [address] [address] Apple Talavera MD [address] [place] [address] [email or web address] documented as of this encounter Visit Diagnoses Not on filedocumented in this encounter Additional Health Concerns Infection Onset Date Last Indicated Resolved Time CoV-Risk 05/07/2022 05/07/2022 05/18/2022 1:24 AM EDT Assessment Noted Time PHQ-2 Depression Total Score: 0 04/28/20 12:48 PM EDT documented as of this encounter Care Teams Tools And Parts Attendant Relationship Specialty Start Date End Date Karlos Lyons MD [address] [place] [address] [email or web address] PCP - General Internal Medicine 07/14/14 05/07/21 Karlos Lyons MD [address] [place] [address] [email or web address] PCP - General Internal Medicine 05/08/21 05/09/22 Sergey Tyson MD 40 [place] [address] [email or web address] PCP - General Internal Medicine 05/10/22 Karlos Lyons MD [address] [place] [address] [email or web address] Insurance Assigned Provider 02/23/17 03/02/23 Omar Rocha MD [address] [place] [address] 101 [place] [address] [email or web address] Physical Medicine and Rehabilitation 05/08/21 Sagar Leung MD 22 [facility], [address] [place] [address] Obstetrics and Gynecology 05/08/21 Yefri Hilliard MD [address] [place] [address] Endocrinology 05/08/21 Karlos Murry MD [address] [place] [address] Gastroenterology 02/27/22 Apple Talavera MD [address] [place] [address] Primary Oncologist Medical Oncology 02/19/23 Sergey Tyson MD [address] [place] [address] Insurance Assigned Provider 02/29/24 Mena Mcwilliams, RN 10 [place] [address] [facility] Fundraising Manager 11/13/23 12/11/23 documented as of this encounter Additional Source Comments The information contained in this document represents components of the legal health record. It is not the complete legal health record.[facility]
--- OUTSIDE RECORDS SUMMARY | 2025-11-10 09:26 | XMS_ITS | Encounter Summary ---
Author Organization [facility] Address [facility] [employer] [facility] [address] [place] [address] Phone Care Team Providers Care Formation Testing Operator Name Role Phone Karlos Lyons MD Unavailable Omar Rocha MD Unavailable Sagar Leung MD Unavailable Yefri Hilliard MD Unavailable [phone] Karlos Murry MD Unavailable [phone] Sergey Tyson MD Primary Care Provider [phone] Apple Talavera MD Unavailable [phone] Sergey Tyson MD Unavailable Mena Mcwilliams RN Unavailable [phone] Encounter Details Date Type Department Care Team (Late st Contact Info) Description 05/31/2022 Procedure Pass [place] Admitting Dept - Virtual Department 30 [place] [address] Social History Tobacco Use Types Packs/Day Years [...] 12/03/2025 11:30 AM EST Office Visit [facility] 8 [place] [address] Sergey Tyson MD 40 [place] [address] Lorri Keenan, CCC-HVAC CONTROLS TECHNICIAN 8 [place] [address] 12/10/2025 2:45 PM EST Office Visit [facility] Gastroenterology Clinic 10 [place] [address] Unknown, Unknown, Karlos Henning MD 10 [facility] 2 [place] [address] 02/02/2026 10:00 AM EDT Office Visit [facility] Pulmonology, Allergy and Critical Care Medicine Clinic 10 [facility] [place] [address] Rj Leiva MD [address] [place] [address] josé 04/28/2026 8:00 AM EDT Office Visit [facility] Primary Care Clinic 40 [place] [address] Sergey Tyson MD [address] [place] [address] 05/20/2026 9:00 AM EDT Office Visit [facility] Cancer [place] Hematology Oncology Clinic at [facility] 30 [place] [address] Apple Talavera MD [address] [place] [address] documented as of this encounter Visit Diagnoses Not on filedocumented in this encounter Additional Health Concerns Assessment Noted Time PHQ-2 Depression Total Score: 2 05/05/20 22 10:17 AM EDT documented as of this encounter Care Teams Formation Testing Operator Relationship Specialty Start Date End Date Sergey Tyson MD [address] [place] [address] [phone] PCP - General Internal Medicine 05/10/22 Karlos Lyons MD [address] [address] [email or web address] Insurance Assigned Provider 02/23/17 03/02/23 Omar Rocha MD [address] [place] [address] [email or web address] Physical Medicine [email or web address] Rehabilitation 05/08/21 Sagar Leung MD [address] [place] [address] 102 [place] [address] Obstetrics and Gynecology 05/08/21 Yefri Hilliard MD [address] [place] [address] Endocrinology 05/08/21 Karlos Murry MD [address] [place] [address] Gastroenterology 02/27/22 Apple Talavera MD [address] [place] [address] Primary Oncologist Medical Oncology 02/19/23 Sergey Tyson MD [address] [place] [address] Insurance Assigned Provider 02/29/24 Mena Mcwilliams, RN [address] [place] [address] [email or web address] PHCM Fire Prevention Captain 11/13/23 12/11/23 documented as of this encounter Additional Source Comments The information contained in this document represents components of the legal health record. It is not the complete legal health record.[facility]
--- OUTSIDE RECORDS SUMMARY | 2025-11-10 09:26 | XMS_ITS | Encounter Summary ---
Author Organization [facility] Address [facility] [employer] [facility] [address] [place] [address] Phone Care Team Providers Care Paralegal Secretary Name Role Phone Karlos Lyons MD Unavailable Omar Rocha MD Unavailable Sagar Leung MD Unavailable Karlos Lyons MD Primary Care Provider Yefri Hilliard MD Unavailable Karlos Murry MD Unavailable [phone] Sergey Tyson MD Primary Care Provider Apple Talavera MD Unavailable [phone] Sergey Tyson MD Unavailable Mena Mcwilliams RN Unavailable [phone] Encounter Details Date Type Department Care Team (Late st Contact Info) Description 05/25/2021 Procedure Pass [place] Admitting Dept - Virtual Department [address] [place] [address] Social History Tobacco Use Types Packs/Day Years [...] Description 12/03/2025 11:30 AM EST Office Visit [facility] Speech Therapy Clinic 8 [place] [address] Sergey Tyson MD [address] [place] [address] [email or web address] Lorri Keenan, [facility]-JET DYEING MACHINE OPERATOR 8 [place] [address] 12/10/2025 2:45 PM EST Office Visit [facility] Gastroenterology Clinic [address] [place] [address] Unknown, Unknown, MD Murry, Karlos Martines MD [address] [place] [address] 02/02/2026 10:00 AM EDT Office Visit [facility] Pulmonology, Allergy and Critical Care Medicine Clinic 10 [place] [address] Rj Leiva MD [address] [place] [address] josé 04/28/2026 8:00 AM EDT Office Visit [facility] Primary Care Clinic [address] [place] [address] Sergey Tyson MD [address] [place] [address] [phone] [email or web address] 05/20/2026 9:00 AM EDT Office Visit [facility] Cancer [place] Hematology Oncology Clinic at [address] [address] Apple Talavera MD 30 [place] [address] [email or web address] documented as of this encounter Visit Diagnoses Not on filedocumented in this encounter Additional Health Concerns Infection Onset Date Last Indicated Resolved Time CoV-Risk 05/07/2022 05/07/2022 05/18/2022 1:24 AM EDT Assessment Noted Time PHQ-2 Depression Total Score: 0 05/05/20 9:23 PM EDT documented as of this encounter Care Teams Paralegal Secretary Relationship Specialty Start Date End Date Karlos Lyons MD [address] [place] [address] [email or web address] PCP - General Internal Medicine 05/08/21 05/09/22 Sergey Tyson MD [address] [place] [address] [email or web address] PCP - General Internal Medicine 05/10/22 Karlos Lyons MD [address] [place] [address] [email or web address] Insurance Assigned Provider 02/23/17 03/02/23 Omar Rocha MD [address] [place] [address] [email or web address] 05/08/21 Sagar Leung MD [address] [place] [address], [address] [place] [address] [email or web address] Obstetrics and Gynecology 05/08/21 Yefri Hilliard MD [address] [place] [address] Endocrinology 05/08/21 Karlos Murry MD [address] [place] [address] [email or web address] Gastroenterology 02/27/22 Apple Talavera MD [address] [place] [address] Primary Oncologist Medical Oncology 02/19/23 Sergey Tyson MD [address] [place] [address] [email or web address] Insurance Assigned Provider 02/29/24 Mena Mcwilliams, RN [address] [place] [address] [email or web address] PHCM Planting Material Unloader 11/13/23 12/11/23 documented as of this encounter Additional Source Comments The information contained in this document represents components of the legal health record. It is not the complete legal health record.[facility]
--- OUTSIDE RECORDS SUMMARY | 2025-11-10 09:26 | XMS_ITS | Encounter Summary ---
Author Organization [facility] Address [facility] [employer] [facility] [address] [place] [address] Phone Care Team Providers Care Tractor Trailer Mechanic Name Role Phone Karlos Lyons MD Unavailable Omar Rocha MD Unavailable Sagar Leung MD Unavailable Karlos Lyons MD Primary Care Provider Yefri Hilliard MD Unavailable Karlos Murry MD Unavailable [phone] Sergey Tyson MD Primary Care Provider Apple Talavera MD Unavailable [phone] Sergey Tyson MD Unavailable Mena Mcwilliams RN Unavailable [phone] Encounter Details Date Type Department Care Team (Late st Contact Info) Description 02/27/2022 Procedure Pass [address] [address] Social History Tobacco Use Types Packs/Day Years [...] Description 12/03/2025 11:30 AM EST Office Visit [facility] Speech Therapy Clinic 8 [place] [address] Sergey Tyson MD [address] [place] [address] Lorri Keenan, [facility]-SMASH PIECER 8 [place] [address] 12/10/2025 2:45 PM EST Office Visit [facility] Gastroenterology Clinic [address] [place] [address] Unknown, Unknown, Karlos Henning MD [address] [place] [address] 02/02/2026 10:00 AM EDT Office Visit [facility] Pulmonology, Allergy and Critical Care Medicine Clinic [address] [place] [address] Rj Leiva MD [address] [place] [address] josé 04/28/2026 8:00 AM EDT Office Visit [facility] Primary Care Clinic [address] [place] [address] Sergey Tyson MD [address] [place] [address] [phone] [email or web address] 05/20/2026 9:00 AM EDT Office Visit [facility] Cancer [place] Hematology Oncology Clinic at [address] [address] Apple Talavera MD 30 [place] [address] [email or web address] documented as of this encounter Visit Diagnoses Not on filedocumented in this encounter Additional Health Concerns Infection Onset Date Last Indicated Resolved Time CoV-Risk 05/07/2022 05/07/2022 05/18/2022 1:24 AM EDT Assessment Noted Time PHQ-2 Depression Total Score: 0 01/28/20 6:26 PM EST documented as of this encounter Care Teams Tractor Trailer Mechanic Relationship Specialty Start Date End Date Karlos Lyons MD [address] [place] [address] [email or web address] PCP - General Internal Medicine 05/08/21 05/09/22 Sergey Tyson MD [address] [place] [address] [email or web address] PCP - General Internal Medicine 05/10/22 Karlos Lyons MD [address] [place] [address] [email or web address] Insurance Assigned Provider 02/23/17 03/02/23 Omar Rocha MD [address] [place] [address] [email or web address] Physical Medicine and [email or web address] 05/08/21 Sagar Leung MD [address] [place] [address], [address] [place] [address] [email or web address] Obstetrics and Gynecology 05/08/21 Yefri Hilliard MD [address] [place] [address] Endocrinology 05/08/21 Karlos Murry MD [address] [place] [address] [email or web address] Gastroenterology 02/27/22 Apple Talavera MD [address] [place] [address] Primary Oncologist Medical Oncology 02/19/23 Sergey Tyson MD [address] [place] [address] [email or web address] Insurance Assigned Provider 02/29/24 Mena Mcwilliams, RN [address] [place] [address] [email or web address] PHCM Heat Engineering Teacher 11/13/23 12/11/23 documented as of this encounter Additional Source Comments The information contained in this document represents components of the legal health record. It is not the complete legal health record.[facility]
--- OUTSIDE RECORDS SUMMARY | 2025-11-10 09:26 | XMS_ITS | Encounter Summary ---
Author Organization [facility] Address [facility] [employer] [facility] [address] [place] [address] Phone Care Team Providers Care Fourdrinier Machine Operator Name Role Phone Karlos Lyons MD Unavailable Omar Rocha MD Unavailable Sagar Leung MD Unavailable Yefri Hilliard MD Unavailable Karlos Murry MD Unavailable [phone] Sergey Tyson MD Primary Care Provider Apple Talavera MD Unavailable [phone] Sergey Tyson MD Unavailable Mena Mcwilliams RN Unavailable [phone] Encounter Details Date Type Department Care Team (Late st Contact Info) Description 09/13/2022 Procedure Pass [facility] Endoscopy Admitting Dept Virtual Department 30 [place], [place] [phone] Social History Tobacco Use Types Packs/Day Years [...] 12/03/2025 11:30 AM EST Office Visit [facility] 8 [place] [address] Sergey Tyson MD 40 [place] [address] Lorri Keenan, CCC-SEALANT MIXER 8 [place] [address] 12/10/2025 2:45 PM EST Office Visit [facility] Gastroenterology Clinic 10 [place] [address] Unknown, Unknown, Karlos Henning MD 10 [facility] 2 [place] [address] 02/02/2026 10:00 AM EDT Office Visit [facility] Pulmonology, Allergy and Critical Care Medicine Clinic 10 [facility] [place] [address] Rj Leiva MD [address] [place] [address] josé 04/28/2026 8:00 AM EDT Office Visit [facility] Primary Care Clinic 40 [place] [address] Sergey Tyson MD [address] [place] [address] 05/20/2026 9:00 AM EDT Office Visit [facility] [place] [facility]ology [facility] at [facility] 30 [place] [address] Apple aTlavera MD [address] [place] [address] documented as of this encounter Visit Diagnoses Not on filedocumented in this encounter Additional Health Concerns Assessment Noted Time PHQ-2 Depression Total Score: 0 09/08/20 22 9:02 AM EDT documented as of this encounter Care Teams Fourdrinier Machine Operator Relationship Specialty Start Date End Date Sergey Tyson MD [address] [place] [address] [phone] PCP - General Internal Medicine 05/10/22 Karlos Lyons MD [address] [address] [email or web address] Insurance Assigned Provider 02/23/17 03/02/23 Omar Rocha MD [address] [place] [address] [email or web address] Physical Medicine [email or web address] 05/08/21 Sagar Leung MD [address] [place] [address] 102 [place] [address] Obstetrics and Gynecology 05/08/21 Yefri Hilliard MD [address] [place] [address] Endocrinology 05/08/21 Karlos Murry MD [address] [place] [address] Gastroenterology 02/27/22 Apple Talavera MD [address] [place] [address] [email or web address] Primary Oncologist Medical Oncology 02/19/23 Sergey Tyson MD [address] [place] [address] Insurance Assigned Provider 02/29/24 Mena Mcwilliams, RN [address] [place] [address] [email or web address] PHCM Otc Clerk 11/13/23 12/11/23 documented as of this encounter Additional Source Comments The information contained in this document represents components of the legal health record. It is not the complete legal health record.[facility]
--- OUTSIDE RECORDS SUMMARY | 2025-11-10 09:26 | XMS_ITS | Encounter Summary ---
Author Organization [facility] Address [address] [place] [address] [address] [place] [address] Phone Care Team Providers Care Assembler Erector Name Role Phone Karlos Lyons MD Primary Care Provider Karlos Lyons MD Unavailable [phone] Omar Rocha MD Unavailable [phone] Sagar Leung MD Unavailable Karlos Lyons MD Primary Care Provider + [phone] Yefri Hilliard MD Unavailable [phone] Karlos Murry MD Unavailable [phone] Sergey Tyson MD Primary Care Provider Apple Talavera MD Unavailable [phone] Sergey Tyson MD Unavailable Mena Mcwilliams RN Unavailable [phone] Encounter Details Date Type Department Care Team (Late st Contact Info) Description 08/06/2020 Procedure Pass [facility], [address] [id number] Social History Tobacco Use Types Packs/Day Years [...] [facility] [address] [place] [address] Sergey Tyson MD [address] [place] [address] Lorri Keenan, CCC-CHECK EXAMINER [address] [place] [address] 12/10/2025 2:45 PM EST Office Visit [facility] Gastroenterology Clinic [address] [place] [address] Unknown, Unknown, Karlos Henning MD [address] [place] [address] 02/02/2026 10:00 AM EDT Office Visit [facility] Pulmonology, Allergy and Critical Care Medicine Clinic 10 [place] [address] Rj Leiva MD [address] [place] [address] josé 04/28/2026 8:00 AM EDT Office Visit [facility] Primary Care Clinic [address] [place] [address] [phone] Sergey Tyson MD 40 [place] [address] [email or web address] 05/20/2026 9:00 AM EDT Office Visit [facility] [place] [facility] Oncology [facility] at [address] [place] [address] [address] Apple Talavera MD [address] [place] [address] [email or web address] documented as of this encounter Visit Diagnoses Not on filedocumented in this encounter Additional Health Concerns Infection Onset Date Last Indicated Resolved Time CoV-Risk 05/07/2022 05/07/2022 05/18/2022 1:24 AM EDT Assessment Noted Time PHQ-2 Depression Total Score: 0 04/28/20 12:48 PM EDT documented as of this encounter Care Teams Assembler Erector Relationship Specialty Start Date End Date Karlos Lyons MD [address] [place] [address] [email or web address] PCP - General Internal Medicine 07/14/14 05/07/21 Karlos Lyons MD [address] [place] [address] [email or web address] PCP - General Internal Medicine 05/08/21 05/09/22 Sergey Tyson MD 40 [place] [address] [email or web address] PCP - General Internal Medicine 05/10/22 Karlos Lyons MD [address] [place] [address] [email or web address] Insurance Assigned Provider 02/23/17 03/02/23 Omar Rocha MD [address] [place] [address] 101 [place] [address] [email or web address] Physical Medicine and Rehabilitation 05/08/21 Sagar Leung MD 22 [facility], [address] [place] [address] Obstetrics and Gynecology 05/08/21 Yefri Hilliard MD [address] [place] [address] Endocrinology 05/08/21 Karlos Murry MD [address] [place] [address] Gastroenterology 02/27/22 Apple Talavera MD [address] [place] [address] Primary Oncologist Medical Oncology 02/19/23 Sergey Tyson MD [address] [place] [address] Insurance Assigned Provider 02/29/24 Mena Mcwilliams, RN 10 [place] [address] [facility] Construction Accountant 11/13/23 12/11/23 documented as of this encounter Additional Source Comments The information contained in this document represents components of the legal health record. It is not the complete legal health record.[facility]
--- OUTSIDE RECORDS SUMMARY | 2025-11-10 09:26 | XMS_ITS | Encounter Summary ---
Author Organization [facility] Address [facility] [address] [place] [address] Phone Care Team Providers Care Volunteer Assistant Name Role Phone Omar Rocha MD Unavailable Sagar Leung MD Unavailable Yefri Hilliard MD Unavailable Karlos Murry MD Unavailable [phone] Sergey Tyson MD Primary Care Provider [phone] Apple Talavera MD Unavailable [phone] Sergey Tyson MD Unavailable Encounter Details Date Type Department Care Team (Late st Contact Info) Description 05/12/2025 Procedure Pass [address] [address] Social History Tobacco Use Types Packs/Day Years [...] Description 12/03/2025 11:30 AM EST Office Visit [facility] Therapy Clinic 8 [place] [address] Sergey Tyson MD [address] [place] [address] Lorri Keenan, [facility]-RE[facility]IL AND RESTAURANT ASSOCIATE 8 [place] [address] 12/10/2025 2:45 PM EST Office [facility] Gastroenterology Clinic [address] [place] [address] Unknown, Unknown, MD Murry, Karlos Martines MD [address] [place] [address] 02/02/2026 10:00 AM EDT Office Visit [facility] Pulmonology, Allergy and Critical Care Medicine Clinic 10 [place] [address] Rj Leiva MD [address] [place] [address] josé 04/28/2026 8:00 AM EDT Office Visit [facility] Primary Care Clinic 40 [place], [place] [phone] Sergey Tyson MD [address] [place] [address] [phone] 05/20/2026 9:00 AM EDT Office Visit [facility] Cancer [place] [facility] Oncology [facility] at [facility] 30 [place] [address] Apple Talavera MD 30 [place] [address] [email or web address] documented as of this encounter Visit Diagnoses Not on filedocumented in this encounter Additional Health Concerns Assessment Noted Time PHQ-9 Depression Total Score: 3 09/11/20 24 9:24 AM EDT PHQ-2 Depression Total Score: 0 04/07/20 25 12:34 PM EDT documented as of this encounter Care Teams Volunteer Assistant Relationship Specialty Start Date End Date Sergey Tyson MD [address] [place] [address] [email or web address] PCP - General Internal Medicine 05/10/22 Omar Rocha MD [email or web address] Physical Medicine and Rehabilitation 05/08/21 Sagar Leung MD [address] [address] [email or web address] Obstetrics and Gynecology 05/08/21 Yefri Hilliard MD [address] [place] [address] Endocrinology 05/08/21 Karlos Murry MD [address] [place] [address] [email or web address] Gastroenterology 02/27/22 Apple Talavera MD 30 [place] [address] [email or web address] Primary Oncologist Medical Oncology 02/19/23 Sergey Tyson MD [address] [place] [address] [email or web address] Insurance Assigned Provider 02/29/24 documented as of this encounter Additional Source Comments The information contained in this document represents components of the legal health record. It is not the complete legal health record.[facility]
--- OUTSIDE RECORDS SUMMARY | 2025-11-10 09:26 | XMS_ITS | Encounter Summary ---
Author Organization [facility] Address Counts include 234 beds at the [facility] [employer] [facility] [address] [place] [address] Phone Care Team Providers Care Radio Installer Automobile Name Role Phone Karlos Lyons MD Unavailable Omar Rocha MD Unavailable [phone] Sagar Leung MD Unavailable Karlos Lyons MD Primary Care Provider [phone] Yefri Hilliard MD Unavailable [phone] Karlos Murry MD Unavailable [phone] Sergey Tyson MD Primary Care Provider Apple Talavera MD Unavailable [phone] Sergey Tyson MD Unavailable Mena Mcwilliams RN Unavailable [phone] Encounter Details Date Type Department Care Team (Late st Contact Info) Description 05/07/2022 Procedure Pass [facility], Ct Scan - [address] [address] Social History Tobacco Use Types Packs/Day Years [...] high school, GED, job training, learning the Hong [place]er language, technical skills, or developing parenting skills)? [...] 11:25 AM EDT Freddy Hart, RUSS * [facility] Suicide Severity Rating Scale (Screener/Recent Self-Report) Question [...] Description 12/03/2025 11:30 AM EST Office Visit [facility] Speech Therapy Clinic 8 [place] [address] Sergey Tyson MD [address] [place] [address] Lorri Keenan, [facility] BOX MAKER 8 [place] [address] 12/10/2025 2:45 PM EST Office Visit [facility] Gastroenterology Clinic [address] [place] [address] Unknown, Unknown, MD Murry, Karlos Martines MD [address] [place] [address] 02/02/2026 10:00 AM EDT Office Visit [facility] Pulmonology, Allergy and Critical Care Medicine Clinic [address] [place] [address] Rj Leiva MD [address] [place] [address] josé 04/28/2026 8:00 AM EDT Office Visit [facility] Primary Care Clinic [address] [place] [address] [phone] Seregy Tyson MD [address] [place] [address] [phone] 05/20/2026 9:00 AM EDT Office Visit [facility] Cancer [place] [facility] Oncology Clinic at [address] [place] [address] Apple Talavera MD [address] [place] [address] [email or web address] documented as of this encounter Visit Diagnoses Not on filedocumented in this encounter Additional Health Concerns Infection Onset Date Last Indicated Resolved Time CoV-Risk 05/07/2022 05/07/2022 05/18/2022 1:24 AM EDT Assessment Noted Time PHQ-2 Depression Total Score: 2 05/05/20 10:17 AM EDT documented as of this encounter Care Teams Radio Installer Automobile Relationship Specialty Start Date End Date Karlos Lyons MD [address] [place] [address] [email or web address] PCP - General Internal Medicine 05/08/21 05/09/22 Sergey Tyson MD [address] [place] [address] [email or web address] PCP - General Internal Medicine 05/10/22 Karlos Lyons MD [address] [place] [address] [email or web address] Insurance Assigned Provider 02/23/17 03/02/23 Omar Rocha MD [address] [place] [address] [email or web address] Physical Medicine and Rehabilitation 05/08/21 Sagar Leung MD [address] [place] [address], [address] [place] [address] Obstetrics and Gynecology 05/08/21 Yefri Hilliard MD [address] [place] [address] Endocrinology 05/08/21 Karlos Murry MD [address] [place] [address] Gastroenterology 02/27/22 Apple Talavera MD [address] [place] [address] Primary Oncologist Medical Oncology 02/19/23 Sergey Tyson MD [address] [place] [address] Insurance Assigned Provider 02/29/24 Mena Mcwilliams, RN [address] [place] [address] [email or web address] Consultants Intern 11/13/23 12/11/23 documented as of this encounter Additional Source Comments The information contained in this document represents components of the legal health record. It is not the complete legal health record.[facility]
--- OUTSIDE RECORDS SUMMARY | 2025-11-10 09:27 | XMS_ITS | Encounter Summary ---
Author Organization [facility] Address [facility] Learn with [facility] [address] [place] [address] Phone Care Team Providers Care Bolt Header Name Role Phone Omar Rocha MD Unavailable Sagar Leung MD Unavailable Yefri Hilliard MD Unavailable Karlos Murry MD Unavailable [phone] Sergey Tyson MD Primary Care Provider [phone] Apple Talavera MD Unavailable Sergey Tyson MD Unavailable Encounter Details Date Type Department Care Team (Latest Contact Info) Description 12/27/2023 Transcribe Orders Virtual Department 30 [place] [address] Karlos Murry MD [address] [place] [address] [phone] [email or web address] Weight loss (Primary Dx) Social History Tobacco Use Types Packs/Day Years Used Date Smoking Tobacco: Former Cigarettes 1.5 7 1 964 - 1970 Smokeless Tobacco: Never Comments:quit 1971 Alcohol Use Standard Drinks/Week Comments Never 0 [...] Office Visit [facility] Speech Therapy Clinic [address] [place] [address] Sergey Tyson MD [address] [place] [address] Lorri Keenan, CCC-FAST FOOD SHIFT LEAD 8 [place] [address] 12/10/2025 2:45 PM EST Office Visit [facility] Gastroenterology Clinic 10 [place] [address] Unknown, Unknown, Karlos Henning MD [address] [address] 02/02/2026 10:00 AM EDT Office Visit [facility] Pulmonology, Allergy and Critical Care Medicine Clinic 10 [place] [address] Rj Leiva MD [address] [place] [address] josé 04/28/2026 8:00 AM EDT Office Visit [facility] Primary Care Clinic 40 [place] [address] Sergey Tyson MD [address] [place] [address] 05/20/2026 9:00 AM EDT Office Visit [facility] Cancer [place] Hematology Oncology Clinic at [facility] 30 [place] [address] Apple Talavera MD [address] [place] [address] documented as of this encounter Visit Diagnoses Diagnosis Weight loss- Primary Loss of weight documented in this encounter Additional Health Concerns Assessment Noted Time PHQ-2 Depression Total Score: 0 01/28/20 23 6:26 PM EST documented as of this encounter Care Teams Bolt Header Relationship Specialty Start Date End Date Sergey Tyson MD 40 [place] [address] PCP - General Internal Medicine 05/10/22 Omar Rocha MD [email or web address] Physical Medicine and Rehabilitation 05/08/21 Sagar Leung MD [address] [place] [address] 102 [place] [address] Obstetrics and Gynecology 05/08/21 Yefri Hilliard MD [address] [place] [address] Endocrinology 05/08/21 Karlos Murry MD [address] [place] [address] Gastroenterology 02/27/22 Apple Talavera MD [address] [place] [address] [email or web address] Primary Oncologist Medical Oncology 02/19/23 Sergey Tyson MD 40 [place] [address] Insurance Assigned Provider 02/29/24 documented as of this encounter Additional Source Comments The information contained in this document represents components of the legal health record. It is not the complete legal health record.[facility]
--- OUTSIDE RECORDS SUMMARY | 2025-11-10 09:27 | XMS_ITS | Encounter Summary ---
Author Organization [facility] Address [address] [place] [address] 985 [place] [address] Phone Care Team Providers Care Hand Inspector Name Role Phone Karlos Lyons MD Primary Care Provider Karlos Lyons MD Unavailable [phone] Omar Rocha MD Unavailable [phone] Sagar Leung MD Unavailable Karlos Lyons MD Primary Care Provider [phone] Yefri Hilliard MD Unavailable [phone] Karlos Murry MD Unavailable [phone] Sergey Tyson MD Primary Care Provider [phone] Apple Talavera MD Unavailable [phone] Sergey Tyson MD Unavailable Mena Mcwilliams RN Unavailable [phone] Encounter Details Date Type Department Care Team (Late st Contact Info) Description 04/27/2021 Procedure Pass [place] Admitting Dept - Virtual Department 30 [place], [place] [phone] Social History Tobacco Use Types Packs/Day Years [...] [facility] [address] [place] [address] Sergey Tyson MD [address] [place] [address] Lorri Keenan, CCC-PHOTOGRAPHIC EQUIPMENT MECHANIC [address] [place] [address] 12/10/2025 2:45 PM EST Office Visit [facility] Gastroenterology Clinic [address] [place] [address] Unknown, Unknown, Karlos Henning MD [address] [place] [address] 02/02/2026 10:00 AM EDT Office Visit [facility] Pulmonology, Allergy and Critical Care Medicine Clinic 10 [place] [address] Rj Leiva MD [address] [place] [address] josé 04/28/2026 8:00 AM EDT Office Visit [facility] Primary Care Clinic [address] [place] [address] [phone] Sergey Tyson MD 40 [place] [address] [email or web address] 05/20/2026 9:00 AM EDT Office Visit [facility] Cancer [place] Hematology Oncology Clinic at [address] [address] Apple Talavera MD [address] [place] [email or web address] documented as of this encounter Visit Diagnoses Not on filedocumented in this encounter Additional Health Concerns Infection Onset Date Last Indicated Resolved Time CoV-Risk 05/07/2022 05/07/2022 05/18/2022 1:24 AM EDT Assessment Noted Time PHQ-2 Depression Total Score: 0 04/28/20 12:48 PM EDT documented as of this encounter Care Teams Hand Inspector Relationship Specialty Start Date End Date Karlos Lyons MD [address] [place] [address] [email or web address] PCP - General Internal Medicine 07/14/14 05/07/21 Karlos Lyons MD [address] [place] [address] [email or web address] PCP - General Internal Medicine 05/08/21 05/09/22 Sergey Tyson MD 40 [place] [address] [email or web address] PCP - General Internal Medicine 05/10/22 Karlos Lyons MD [address] [place] [address] [email or web address] Insurance Assigned Provider 02/23/17 03/02/23 Omar Rocha MD [address] [place] [address] 101 [place] [address] [email or web address] Physical Medicine [email or web address] Rehabilitation 05/08/21 Sagar Leung MD 22 [facility], [address] [place] [address] Obstetrics and Gynecology 05/08/21 Yefri Hilliard MD [address] [place] [address] Endocrinology 05/08/21 Karols Murry MD [address] [place] [address] Gastroenterology 02/27/22 Apple Talavera MD [address] [place] [address] Primary Oncologist Medical Oncology 02/19/23 Sergey Tyson MD [address] [place] [address] Insurance Assigned Provider 02/29/24 Mena Mcwilliams, RN 10 [place] [address] [facility] Senior Data Developer 11/13/23 12/11/23 documented as of this encounter Additional Source Comments The information contained in this document represents components of the legal health record. It is not the complete legal health record.[facility]
--- OUTSIDE RECORDS SUMMARY | 2025-11-10 09:27 | XMS_ITS | Encounter Summary ---
Author Organization [facility] Address [address] [place] [address] 985 [place] [address] Phone Care Team Providers Care Clam Shucker Name Role Phone Karlos Lyons MD Unavailable [phone] Omar Rocha MD Unavailable [phone] Sagar Leung MD Unavailable Karlos Lyons MD Primary Care Provider + [phone] Yefri Hilliard MD Unavailable [phone] Karlos Murry MD Unavailable [phone] Sergey Tyson MD Primary Care Provider [phone] Apple Talavera MD Unavailable [phone] Sergey Tyson MD Unavailable Mena Mcwilliams RN Unavailable [phone] Reason for Referral * MRI/CAT Scan - Closed Specialty Diagnoses / Procedures Referred By Jessica balbuena Referred To Contact Radiology Diagnoses Vision loss Nonintractable headache, unspecified chronicity pattern, unspecified headache type Procedures MRI Brain Berto Quintanilla MD Phone: tel: fax: mailto:[email or web address] Referral ID Status Reason Start Date Expiration Date Visits Re quested Visits Authorized [id number] Closed 02/22/2022 02/22/2023 1 1 Encounter Details Date Type Department Care Team (Latest Contact Info) Description 02/22/2022 Transcribe Orders Virtual Department [address] [place] [address] Berto Quintanilla MD [address] [place] [address], [address] [place] [address] [email or web address] [...] Office Visit [facility] [address] [place] [address] Sergey Tyson MD [address] [place] [address] Lorri Keenan, [facility] 8 [place] [address] 12/10/2025 2:45 PM EST Office Visit [facility] Gastroenterology Clinic [address] [place] [address] Unknown, Unknown, MD Murry, Karlos Martines MD 10 [facility]. [place] 2 [place] [address] 02/02/2026 10:00 AM EDT Office Visit [facility] Pulmonology, Allergy and Critical Care Medicine Clinic 10 [facility] [place] [address] Rj Leiva MD 30 [place] [address] josé 04/28/2026 8:00 AM EDT Office Visit [facility] Primary Care Clinic 40 [place] [address] Sergey Tyson MD 40 [place] [address] [email or web address] 05/20/2026 9:00 AM EDT Office Visit [facility] Cancer [place] Hematology Oncology Clinic at [facility] 30 [place] [address] Apple Talavera MD [address] [place] [address] [email or web address] documented [...] performed without intravenous contrast. COMPARISON: MRI-MRA HEAD [facility] FINDINGS: Brain Parenchyma: No evidence of acute [...] was performed withoutintravenous contrast. COMPARISON: MRI-MRA HEAD [facility] FINDINGS: Brain Parenchyma: No evidence of acute [...] vertebral artery flow. us Berto Quintanilla MD CV US NEUROVASCULAR Final Re sult documented in [...] documented as of this encounter Care Teams Clam Shucker Relationship Specialty Start Date End Date Karlos Lyons MD [address] [place] [address] [email or web address] PCP - General Internal Medicine 05/08/21 05/09/22 Sergey Tyson MD [address] [place] [address] [email or web address] PCP - General Internal Medicine 05/10/22 Karlos Lyons MD [address] [place] [address] [email or web address] Insurance Assigned Provider 02/23/17 03/02/23 Omar Rocha MD [address] [place] [address] [email or web address] Medicine [email or web address] Rehabilitation 05/08/21 Sagar Leung MD 22 [facility], [address] [place] [address] Obstetrics and Gynecology 05/08/21 Yefri Hilliard MD [address] [place] [address] Endocrinology 05/08/21 Karlos Murry MD [address] [place] [address] [email or web address] Gastroenterology 02/27/22 Apple Talavera MD [address] [place] [address] Primary Oncologist Medical Oncology 02/19/23 Sergey Tyson MD [address] [place] [address] Insurance Assigned Provider 02/29/24 Mena Mcwilliams RN [address] [place] [address] [email or web address] [facility] 11/13/23 12/11/23 documented as of this encounter Additional Source Comments The information contained in this document represents components of the legal health record. It is not the complete legal health record.[facility]
--- OUTSIDE RECORDS SUMMARY | 2025-11-10 09:27 | XMS_ITS | Encounter Summary ---
Author Organization [facility] Address [facility] [employer] [facility] [address] [place] [address] Phone Care Team Providers Care Developmental Training Counselor Name Role Phone Karlos Lyons MD Unavailable [phone] Omar Rocha MD Unavailable [phone] Sagar Leung MD Unavailable Karlos Lyons MD Primary Care Provider Yefri Hilliard MD Unavailable Karlos Murry MD Unavailable [phone] Sergey Tyson MD Primary Care Provider Apple Talavera MD Unavailable [phone] Sergey Tyson MD Unavailable Mena Mcwilliams RN Unavailable [phone] Encounter Details Date Type Department Care Team (Late st Contact Info) Description 02/22/2022 Procedure Pass [facility], [address] [address] Social History Tobacco Use Types Packs/Day Years [...] Description 12/03/2025 11:30 AM EST Office Visit [facility] 8 [place] [address] Sergey Tyson MD [address] [place] [address] Lorri Keenan, [facility]-PRODUCTION CONTROL SUPERVISOR 8 [place] [address] 12/10/2025 2:45 PM EST Office Visit [facility] [address] [place] [phone] Unknown, Unknown, Karlos Henning MD [address] [place] [phone] 02/02/2026 10:00 AM EDT Office Visit [facility] Pulmonology, Allergy and Critical Care Medicine Clinic [address] [place] [address] Rj Leiva MD [address] [place] [address] [email or web address] 04/28/2026 8:00 AM EDT Office Visit [facility] [address] [place] [address] Sergey Tyson MD [address] [place] [address] [phone] [email or web address] 05/20/2026 9:00 AM EDT Office Visit [facility] [place] [facility] at [facility] [address] [place] [address] Apple Talavera MD 30 [place] [address] [email or web address] documented as of this encounter Visit Diagnoses Not on filedocumented in this encounter Additional Health Concerns Infection Onset Date Last Indicated Resolved Time CoV-Risk 05/07/2022 05/07/2022 05/18/2022 1:24 AM EDT Assessment Noted Time PHQ-2 Depression Total Score: 0 05/05/20 9:23 PM EDT documented as of this encounter Care Teams Developmental Training Counselor Relationship Specialty Start Date End Date Karlos Lyons MD [address] [place] [address] [email or web address] PCP - General Internal Medicine 05/08/21 05/09/22 Sergey Tyson MD [address] [place] [address] [email or web address] PCP - General Internal Medicine 05/10/22 Karlos Lyons MD [address] [place] [address] [email or web address] Insurance Assigned Provider 02/23/17 03/02/23 Omar Rocha MD [address] [place] [address] [email or web address] Physical Medicine and Rehabilitation 05/08/21 Sagar Leung MD [address] [place] [address], [address] [place] [address] [email or web address] Obstetrics and Gynecology 05/08/21 Yefri Hilliard MD [address] [place] [address] Endocrinology 05/08/21 Karlos Murry MD [address] [place] [address] Gastroenterology 02/27/22 Apple Talavera MD [address] [place] [address] Primary Oncologist Medical Oncology 02/19/23 Sergey Tyson MD [address] [place] [phone] Insurance Assigned Provider 02/29/24 Mena Mcwilliams, RN [address] [place] [address] [email or web address] PHCM Bag Making Machine Operator 11/13/23 12/11/23 documented as of this encounter Additional Source Comments The information contained in this document represents components of the legal health record. It is not the complete legal health record.[facility]
--- OUTSIDE RECORDS SUMMARY | 2025-11-10 09:27 | XMS_ITS | Encounter Summary ---
Author Organization [facility] Address [facility] [employer] [facility] [address] [place] [address] Phone Care Team Providers Care Nursing Specialist Name Role Phone Omar Rocha MD Unavailable Sagar Leung MD Unavailable Yefri Hilliard MD Unavailable Karlos Murry MD Unavailable [phone] Sergey Tyson MD Primary Care Provider [phone] Apple Talavera MD Unavailable Sergey Tyson MD Unavailable Encounter Details Date Type Department Care Team (Latest Contact Info) Description 12/23/2024 Transcribe Orders Virtual Department 30 [place] [address] Omar Rocha MD [address] [place] [address] [email or web address] Left hip pain (Primary Dx) Social History [...] high school, GED, job training, learning the Pakistani language, technical skills, or developing parenting skills)? [...] Office Visit [facility] 8 [place] [address] Sergey Tyson MD [address] [place] [address] Lorri Keenan, [facility] CUSTODIAN 8 [place] [address] 12/10/2025 2:45 PM EST Office Visit [facility] Gastroenterology Clinic 10 [place] [address] Unknown, Unknown, MD Murry, Karlos Martines MD [address] [place] [address] 02/02/2026 10:00 AM EDT Office Visit [facility] Pulmonology, Allergy and Critical Care Medicine Clinic 10 [facility] [place] [address] Rj Leiva MD [address] [place] [address] [email or web address] 04/28/2026 8:00 AM EDT Office Visit [facility] Primary Care Clinic 40 [place] [address] Sergey Tyson MD [address] [place] [address] [phone] 05/20/2026 9:00 AM EDT Office Visit [facility] [place] [facility] at [facility] [place] 30 [place] [address] Apple Talavera MD [address] [place] [address] [email or web address] documented as of [...] hardware overlying the lumbarsacral spine. us Omar Rocha MD IMG XR PELVIS Final [...] documented as of this encounter Care Teams Nursing Specialist Relationship Specialty Start Date End Date Sergey Tyson MD [address] [place] [address] PCP - General Internal Medicine 05/10/22 Omar Rocha MD [email or web address] Physical Medicine and Rehabilitation 05/08/21 Sagar Leung MD [address] [place] [address] Obstetrics and Gynecology 05/08/21 Yefri Hilliard MD [address] [place] [address] Endocrinology 05/08/21 Karlos Murry MD [address] [place] [address] Gastroenterology 02/27/22 Apple Talavera MD [address] [place] [address] Primary Oncologist Medical Oncology 02/19/23 Sergey Tyson MD 40 [place] [address] [email or web address] Insurance Assigned Provider 02/29/24 documented as of this encounter Additional Source Comments The information contained in this document represents components of the legal health record. It is not the complete legal health record.[facility]
--- OUTSIDE RECORDS SUMMARY | 2025-11-10 09:27 | XMS_ITS | Encounter Summary ---
Author Organization [facility] Address [address] [place] [address] [address] [place] [address] Phone Care Team Providers Care Director Script Name Role Phone Karlos Lyons MD Unavailable [phone] Omar Rocha MD Unavailable [phone] Sagar Leung MD Unavailable Karlos Lyons MD Primary Care Provider [phone] Yefri Hilliard MD Unavailable Karlos Murry MD Unavailable [phone] Sergey Tyson MD Primary Care Provider Apple Talavera MD Unavailable [phone] Sergey Tyson MD Unavailable Mena Mcwilliams RN Unavailable [phone] Encounter Details Date Type Department Care Team (Latest Contact Info) Description 05/08/2021 Transcribe Orders Virtual Department 30 [place], [place] [phone] Omar Rocha MD [address] [place] [address] [email or web address] Left wrist pain (Primary Dx) Social History [...] Description 12/03/2025 11:30 AM EST Office Visit [facility] Speech Therapy Clinic [address] [place] [phone] Sergey Tyson MD [address] [place] [address] Lorri Keenan, CCC-INSURANCE CASE MANAGER 8 [place] [address] 12/10/2025 2:45 PM EST Office Visit [facility] Gastroenterology Clinic 10 [place] [address] Unknown, Unknown, Karlos Henning MD [address] [place] [address] 02/02/2026 10:00 AM EDT Office Visit [facility] Pulmonology, Allergy and Critical Care Medicine Clinic 10 [place] [address] Rj Leiva MD [address] [place] [address] [email or web address] 04/28/2026 8:00 AM EDT Office Visit [facility] Primary Care Clinic 40 [place] [address] Sergey Tyson MD 40 [place] [address] 05/20/2026 9:00 AM EDT Office Visit [facility] Cancer [place] [facility]emat[facility] Oncology Clinic at [facility] 30 [place] [address] Apple Talavera MD 30 [place] [address] [email or web address] documented as of this encounter Results * [...] as of this encounter Care Teams Director Script Relationship Specialty Start Date End Date aKrlos Lyons MD [address] [place] [address] [email or web address] PCP - General Internal Medicine 05/08/21 05/09/22 Sergey Tyson MD [address] [place] [address] [email or web address] PCP - General Internal Medicine 05/10/22 Karlos Lyons MD [address] [place] [address] [email or web address] Insurance Assigned Provider 02/23/17 03/02/23 Omar Rocha MD [address] [place] [phone] [email or web address] Physical Medicine and Rehabilitation 05/08/21 Sagar Leung MD 22 [facility], [address] [place] [address] [email or web address] Obstetrics and Gynecology 05/08/21 Yefri Hilliard MD [address] [place] [address] Endocrinology 05/08/21 Karlos Murry MD [address] [place] [address] [email or web address] Gastroenterology 02/27/22 Apple Talavera MD [address] [place] [address] [email or web address] Primary Oncologist Medical Oncology 02/19/23 Sergey Tyson MD [address] [place] [address] [email or web address] Insurance Assigned Provider 02/29/24 Mena Mcwilliams, RN [address] [place] [phone] [email or web address] Die Designer 11/13/23 12/11/23 documented as of this encounter Additional Source Comments The information contained in this document represents components of the legal health record. It is not the complete legal health record.[facility]
--- OUTSIDE RECORDS SUMMARY | 2025-11-10 09:27 | XMS_ITS | Clinical Summary ---
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 Rocha at [facility] Take 10 mg by mouth 4 (four) times a day. And take 2 tablets at bedtime. Indications: managed by Dr. Rocha at [facility] Active losartan (COZAAR) 100 MG tabletIndications :Hypertension TAKE 1 TABLET BY MOUTH EVERY DAY 90 tablet 3 025 Active levothyroxine (SYNTHROID, LEVOTHROID) 137 MCG tabletIndications :Postablative hypothyroidism TAKE 1 TABLET BY MOUTH EVERY MORNING. 90 tablet 3 025 Active budesonide (ENTOCORT EC) 3 mg 24 hr capsule Take 3 mg by mouth every morning. Active sodium chloride 3 % nebulizer solution Take 4 mL (120 mg total) by nebulization 2 (two) times a day. 240 mL 11 Active Additional Information Patient not taking.Reported on 10/08/2025 guaiFENesin (MUCINEX) 600 mg ER biphasic tablet Take 600 mg by mouth. Active nizatidine (AXID) 150 MG capsule Take 1 capsule by mouth 2 (two) times a day. Active ipratropium (ATROVENT) 21 mcg (0.03 %) nasal spray 2 sprays by Nasal route every 12 (twelve) hours. 30 mL 12 Active magnesium chloride (SLOW-MAG) 596 mg (71.5 mg elemental) TbEC Take 1 tablet (596 mg total) by mouth daily. 90 tablet 2 Active Additional Information Patient not taking.Reported on 10/08/2025 prednisoLONE acetate (PRED FORTE) 1 % ophthalmic suspension Place 1 drop into the right eye daily. Active azithromycin (ZITHROMAX) 250 MG tablet Take 2 tablets on day 1 followed by 1 tablet daily for 4 days 6 tablet Active methylPREDNISolon e (MEDROL DOSEPACK) 4 mg tablet follow package directions 21 tablet Active cetirizine (ZYRTEC) 10 MG tablet Take 1 tablet (10 mg total) by mouth daily. 90 tablet 1 025 Active fluticasone propionate (FLONASE) 50 mcg/actuation nasal sprayIndications: PND (post-nasal drip) SPRAY 2 SPRAYS INTO EACH NOSTRIL EVERY DAY 48 mL 3 025 Active albuterol 90 mcg/actuation inhalerIndication s:Pneumonia of right lower lobe due to infectious organism INHALE 2 PUFFS INTO THE LUNGS EVERY 6 HOURS NEEDED FOR WHEEZE 18 g 5 025 Active fluticasone propionate (FLONASE) 50 mcg/actuation nasal sprayIndications: PND (post-nasal drip) spray 2 sprays into each nostril every day 48 mL 3 024 2024 Discontinued albuterol 90 mcg/actuation inhalerIndication s:Pneumonia of right lower lobe due to infectious organism INHALE 2 PUFFS INTO THE LUNGS EVERY 6 HOURS NEEDED FOR WHEEZE 8 g 5 025 2024 Discontinued cefpodoxime (VANTIN) 200 MG tablet Take 1 tablet (200 mg total) by mouth 2 (two) times a day for 10 days. 10 tablet 025 2024 Active Problems Patient Care Coordination No te [...] OTC. She is working together with her program architect regarding her lung and upper respiratory symptoms. [...] of Oddi. She has a follow-up with [facility] on Saturday. She is advised to maintain adequate hydration and to avoid foods high in fat to prevent exacerbation of pain. Discussed the possibility of an MRCP with GI. Pneumonia of both lower lobes due to infectious organism 03/26/2025 Assessment & Plan (04/13/2025 6:19 PM EDT): Will obtain chest CT at [facility] where the last 1 was done [...] to see if that can help symptomatic roasrio. Discussed that it can take at least [...] is also being what worked up by [facility] gastroenterology. Will follow but focus on [...] such lets set the patient up with [facility] orthopedics to reassess if that [...] versus pancreas insufficiency being worked up by [facility] with stool tests and a HIDA scan coming up this Saturday. Then the other issue is ongoing coughing, phlegm production, malaise with history of pneumonia, and after the visit markedly elevated CRP. Will obtain chest CT at [facility] where the last 1 was done [...] Will do the bone density scan at [facility]. In regards to night sweats [...] its possible that would overtake this from [facility] but will cross that [...] and ADR Opted to recheck urine at [facility] lab due to [facility]'s protocol on sending out urine [...] several adenomatous polyps. Vitamin D deficiency 12/01/2019 snf current use of opiate analgesic 2018 Fasciculations [...] recent thyroid function studies were done at [facility] and this can be found in [...] (05/08/2021): bilateral, Seen by Dr Sims at [facility] Assessment & Plan (09/28/2024 10:42 AM [...] Encounters Date Type Department Care Team Description 11/09/2025 Ancillary Orders [facility],Outside Imaging [address] [place] [address] Huey, MD Huey 11/08/2025 Hospital Encounter [facility],Outside Imaging [address] [place] [address] Unknown, Unknown, Arrived 11/03/2025 Refill [facility] [address] [place] [address] Sergey Tyson MD Medication Refill 10/28/2025 9:30 AM EST Office Visit [facility] [address] [place] [address] Sergey Tyson MD Korza, Laurie J, CCC-APPLICATIONS SALES REPRESENTATIVE Pharyngoesophageal dysphagia (Primary Dx) 10/24/2025 Telephone [facility] Primary Care Contact [facility] [address] [address] Radha Grimes PA-C Medication Refill (After Hours Call) 10/24/2025 Refill [facility] [address] [place] [address] Sergey Tyson MD Medication Refill 10/12/2025 Telephone [facility] Pulmonology, Allergy and Critical Care Medicine Clinic [address] [place] [address] Veronika Gill ca location 10/11/2025 Refill [facility] [address] [place] [address] Susy Johns Medication Problem 10/08/2025 2:00 PM EST Office Visit [facility] Pulmonology, Allergy and Critical Care Medicine Clinic [address] [place] [address] Rj Leiva MD Pneumonia of both lower lobes due to infectious organism (Primary Dx); Chronic cough; Chronic sinusitis, unspecified location 10/08/2025 10:30 AM EST Office Visit [facility] [address] [place] [address] Sergey Tyson MD Korza, Laurie J CCC-APPLICATIONS SALES REPRESENTATIVE Pharyngoesophageal dysphagia (Primary Dx) 10/08/2025 Telephone [facility] Pulmonology, Allergy and [facility] Medicine [facility] [address] [place] [address] Rj Leiva MD 09/29/2025 Orders Only [facility] Primary [facility] [address] [place] [address] Avelino Thomson MD 09/23/2025 9:30 AM EDT Office Visit [facility] Speech Therapy Clinic [address] [place] [address] Sergey Tyson MD Korza, Laurie J, CCC-APPLICATIONS SALES REPRESENTATIVE Pharyngoesophageal dysphagia (Primary Dx) 09/22/2025 Telephone [facility] Pulmonology, Allergy and Critical Care Medicine Clinic [address] [place] [address] Rj Leiva MD 09/13/2025 Plan of Care Documentation [facility] Speech Therapy Clinic [address] [place] [address] 09/09/2025 8:30 AM EDT Office Visit [facility] Speech Therapy [address] [place] [address] Sergey Tyson MD Korza, Laurie J, [facility]-APPLICATIONS SALES REPRESENTATIVE Pharyngoesophageal dysphagia (Primary Dx); Esophageal spasm from Last 3 Months Immunizations Immunization Administration Dates Next Due COVID-19 (Pre-09/16) Pfizer Vaccine, mRNA, PF 02/21/2021,01/31/2021 COVID-19, Unspecified Formulation 11/07/2022 [id number] FORMULATION 10/07/2009 INFLUENZA, SPLIT VIRUS, TRIVALENT PF [...] Sign Reading Time Taken Comments Blood Pressure 124/60 10/08/2025 1:55 PM EST Pulse 74 10/08/2025 1:55 PM EST Temperature 36.4 C (97.5 F) 10/08/2025 1:55 PM EST Respiratory Rate 12 07/27/2025 9:58 AM EDT Oxygen Saturation 97% 10/08/2025 1:55 PM EST Inhaled Oxygen Concentration - - Weight 50.9 kg (112 lb 3.2 oz) 10/08/2025 1:55 P M EST Height 165.7 cm (5' 5.24 ) 10/08/2025 1:55 PM ES T Body Mass Index 18.54 10/08/2025 1:55 PM EST Plan of Treatment Upcoming Encounters Date Type Department Care Team (Late st Contact Info) Description 12/03/2025 11:30 AM EST Office Visit [facility] [address] [place] [address] [place] [address] Sergey Tyson MD [address] [place] [address] [phone] Lorri Keenan, CCC-APPLICATIONS SALES REPRESENTATIVE [address] [place] [address] 12/10/2025 2:45 PM EST Office Visit [facility] Gastroenterology Clinic [address] [place] [address] Unknown, Unknown, Adan Henning MD [address] [place] [address] 02/02/2026 10:00 AM EDT Office Visit [facility] Pulmonology, Allergy and Critical Care Medicine Clinic [address] [place] [address] Rj Leiva MD [address] [place] [address] [email or web address] 04/28/2026 8:00 AM EDT Office Visit [facility] Primary Care Clinic [address] [place] [address] Sergey Tyson MD [address] [place] [address] [email or web address] 05/20/2026 9:00 AM EDT Office Visit [facility] [address] [place] [address] Apple Talavera MD [address] [place] [address] [email or web address] Health Maintenance Due Date Last Done Comments COLOGUARD 1995 FOBT 1995 SIGMOIDOSCOPY 1995 VIRTUAL COLONOSCOPY 1995 ZOSTER VACCINES (1 of 2) 10/13/2012 08/18/2012 Adult Td,Tdap Booster 06/15/2023 06/15/2013 FIT TEST 03/04/2025 03/04/2024 RSV VACCINE (1 - 1-dose 75+ series) 2025 COVID-19 VACCINE (2024- season) 2025 08/24/2023, 11/07/2022, 11/07/2022, Additional history exists BLOOD PRESSURE 04/07/2026 10/08/2025 DEPRESSION SCREENING 04/07/2026 04/07/2025, 09/11/20 LIPID PANEL 05/11/2026 05/11/2021, 05/11/2021 CREATININE LEVEL 07/27/2026 07/27/2025, 04/2024, 09/28/2024, Additional history exists POTASSIUM LEVEL 07/27/2026 07/27/2025, 1204/2024, 09/28/2024, Additional history exists TSH LEVEL 07/27/2026 07/27/2025, 1102/2024, 04/10/2024, Additional history exists COLONOSCOPY 09/13/2032 09/13/2022, 04/20/2021 COLORECTAL CANCER SCREENING 09/13/2032 PNEUMOCOCCAL VACCINES (50+ years) Completed 03/18/2017, 01/26/2016 HEPATITIS C SCREENING Completed 05/11/2021, 021 OSTEOPOROSIS SCREENING INITIAL (ONE-TIME) Completed 05/02/2024, 01/29/2020, 02/08/2016 INFLUENZA VACCINE Completed 08/29/2025, , 09/08/2023, Additional history exists SMOKING STATUS SCREENING (Once After 26 Yrs) Completed 10/08/2025 HEPATITIS A VACCINES Aged Out No long [...] this topic Medical Devices Implanted Type Area Superintendent Service Device Identifier Shelf Expiration Date Model / Serial / Lot [id number] Screws Left Breast Silicone Implant Left Middle And Ring Finger Joint Replacemtents Cervical C5,6,7 Fusion And L5-S1 Procedures Procedure Name Priority Date/Time Associated Diagnosis Comments CT CHEST OUTSIDE (NO INTERPRETATION) Routine 11/08/2025 12:00 AM EST OUTSIDE LAB Routine 09/28/2025 1:56 PM EST TSH WITH REFLEX Routine 07/27/2025 10:45 AM EDT Postablative hypothyroidism BASIC METABOLIC PANEL (BMP) Routine 07/27/2025 10:45 AM EDT Primary hypertension BD DXA MONITORING Routine 05/02/2024 10: 14 AM EDT Osteopenia of lumbar spine FECAL IMMUNOCHEMICAL BLOOD TEST X1 (FIT) Routine 03/04/2024 9:15 PM EDT Change in stool ENDOSCOPY, COLON 09/13/2022 11:5 8 AM EDT LIPID PANEL Routine 05/11/2021 9:13 AM EDT Screening, lipid HEPATITIS C ANTIBODY, QUALITATIVE Routine 05/11/2021 9:13 AM EDT Routine general medical examination at a [facility] care facility from Last 3 Months or Most Recently Relevant to Health Maintenance Results * CT Chest Outside (No Interpretation) (11/08/2025 12:00 AM EST) Narrative SYSTEMGENERATED, DOCUMENTATION - 11/09/2025 12:50 PM EST This study is for PACS storage only and not for interpretation. us Unknown Unknown IMRaquel OUTSIDE IMAGING W/OUT INT ERPRETATION Final Result * Outside Lab (Non-MGB) (09/28/2025 1:56 PM EST) us Historical Provider LAB BLOOD BKR ORDERABLES Final Result * TSH with reflex (07/27/2025 10:45 AM EDT) TSH 1.17 0.27 - 4.20 uIU/mL [facility] Blood 07/27/2025 10:4 5 AM EDT 07/27/2025 10:47 AM EDT us Sergey Tyson MD LAB BLOOD BKR ORDERABLES Final R esult Performing Organization Address City/[facility]/ZIP Co de Phone Number [address] [address] * (ABNORMAL) Basic metabolic panel (07/27/2025 10:45 AM EDT) SODIUM 137 133 - 146 mmol/L [facility] CHLORIDE 100 96 - 108 mmol/L [facility] POTASSIUM 4.3 3.3 - 5.1 mmol/L [facility] CO2 28 21 - 35 mmol/L [facility] BUN 20(H) 6 - 19 mg/dL [facility] CREATININE 0.90 0.5 - 1.5 mg/dL [facility] GLUCOSE 93 70 - 99 mg/dL [facility] CALCIUM 9.5 8.4 - 10.3 mg/dL [facility] EGFR 67 >59 mL/min/1.7 3m2 [facility] Comment:Estimated glomerular filtration rate calculated using the CKD-EPI refit equation. ANION GAP 13 10 - 20 mmol/L [facility] Blood 07/27/2025 10:4 5 AM EDT 07/27/2025 10:47 AM EDT us Sergey Tyson MD LAB BLOOD BKR ORDERABLES Final R esult Performing Organization Address City/[facility]/ZIP Co de Phone Number [address] [address] * DXA Monitoring (05/02/2024 10:14 AM EDT) Anatomical Region Laterality Modality Bone Density Bone Density us Sergey Tyson MD IMG BD BONE DENSITY DEXA Final R esult * Fecal immunochemical test x1 (FIT) (03/04/2024 9:15 PM EDT) Immuno Fecal Occult Negative Negative [facility] Stool (Stool) 03/04/2024 9:1 5 PM EDT 03/06/2024 10:00 AM EDT Adan Hoffman MD LAB BODY FLUIDS AND STOOL ORDERABLES Final Result [address] [address] * ENDOSCOPY, COLON (09/13/2022 11:58 AM EDT) Narrative Transcriptions Adan Hoffman MD - 09/13/2022 11:58 AM EDT Patient Name: Kaylyn Doan Attending MD:: ADAN HOFFMAN MD Procedure Date: 09/13/2022 11:58AM Date of : 1950 Age: 72 Admit Type: Outpatient Gender: Female Room: [place] [address] Referring MD: Sergey Tyson MD Exam Type: [...] 11:58 AM Procedure Code(s): --- Professional --- 16900, Colonoscopy, flexible; with removal of tumor(s), polyp(s), or other lesion(s) by snare technique 09987, 59, Colonoscopy, flexible; with biopsy, single or multiple --- Technical --- 24010, Colonoscopy, flexible; with removal of tumor(s), polyp(s), or other lesion(s) by snare technique 93881, 59, Colonoscopy, flexible; with biopsy, single or multiple Diagnosis Code(s): --- Professional --- K63.5, Polyp of colon Z86.010, Personal history of colonic polyps K64.9, Unspecified hemorrhoids Q43.8, Other specified congenital malformations of intestine --- Technical --- K63.5, Polyp of colon Z86.010, Personal history of colonic polyps K64.9, Unspecified hemorrhoids Q43.8, Other specified congenital malformations of intestine CPT copyright 2020 [employer]. All rights reserved. The codes documented in this report are preliminary and upon primary teaching assistant reviewmay be revised to meet current compliance requirements. Procedure Date: 09/13/2022 11:58:[address] [place] [address] us Sergey Tyson MD GI PROCEDURE ORDERABLES Final Re sult * Hepatitis C antibody, qualitative (05/11/2021 9:13 AM EDT) HCV NON-REACTIV E NON-REACTI VE [facility] Blood 05/11/2021 9:13 AM EDT 05/11/2021 9:19 AM EDT us Adan Lyons MD LAB BLOOD BKR ORDERABLES F inal Result [facility] [address] [place] [address] * (ABNORMAL) Lipid panel (05/11/2021 9:13 AM EDT) HDL 68 mg/dL [facility] Comment: Interpretation <40 mg/dL: Low HDL cholesterol (major risk factor for CHD) Greater than or equal to 60 mg/dL: High HDL cholesterol ( negative risk factor for CHD) HDL - cholesterol is affected by a number of factors, e.g. smoking, excerise, hormones, sex and age. CHOLESTEROL 217 0 - 240 mg/dL [facility] TRIGLYCERIDES 113 30 - 160 mg/dL [facility] LDL 126 50 - 129 mg/dL [facility] Comment: LDL levels in terms of risk for coronary heart disease: <100 mg/dL: Optimal 100-129 mg/dL: Near or above optimal 130-159 mg/dL: Borderline high 160-189 mg/dL: High >190 mg/dL: Very High CARDIAC RISK RATIO 3.2(L) 3.3 - 4.4 C [facility] Blood 05/11/2021 9:13 AM EDT 05/11/2021 9:19 AM EDT us Adan Lyons MD LAB BLOOD BKR ORDERABLES F inal Result [facility] [address] [place] [address] from Last 3 Months or Most Recently Relevant to Health Maintenance [place] [address] [place] [address] MEDICARE PART A & B [facility] MEDICARE PART A & B [facility] MEDICARE PART A & B [facility] MEDICARE [facility] A & B [facility] MEDICARE PART A & B [facility] MEDICARE PART A & B [facility] MEDICARE [facility] A & B [facility] MEDICARE PART A & [place] [id number] [facility] MEDICARE PART A & B [facility] [place] [id number] [facility] [employer] Care Teams Information Systems Manager Relationship Specialty Start Date End Date Sergey Tyson MD [address] [place] [address] PCP - General Internal Medicine 05/10/22 Omar Rocha MD [email or web address] Physical Medicine and Rehabilitation 05/08/21 Sagar Leung MD [address] [place] [address] Obstetrics and Gynecology 05/08/21 Yefri Hilliard MD [address] [place] [address] Endocrinology 05/08/21 Adan Hoffman MD [address] [place] [address] Gastroenterology 02/27/22 Apple Talavera MD [address] [place] [address] Primary Oncologist Medical Oncology 02/19/23 Sergey Tyson MD [address] [place] [address] [email or web address] Insurance Assigned Provider 02/29/24 Additional Source Comments The information contained in this document represents components of the legal health record. It is not the complete legal health record.[facility]
--- OUTSIDE RECORDS SUMMARY | 2025-11-10 09:27 | XMS_ITS | Encounter Summary ---
Author Organization [facility] Address [facility] [employer] [facility] [address] [place] [address] Phone Care Team Providers Care Resident Associate Name Role Phone Omar Rocha MD Unavailable Sagar Leung MD Unavailable Yefri Hilliard MD Unavailable Karlos Murry MD Unavailable [phone] Sergey Tyson MD Primary Care Provider Apple Talavera MD Unavailable [phone] Sergey Tyson MD Unavailable Encounter Details Date Type Department Care Team (Late st Contact Info) Description 10/30/2024 Procedure Pass [facility], [facility] Scan - [address] [address] Social History Tobacco Use Types Packs/Day Years [...] high school, GED, job training, learning the Indian language, technical skills, or developing parenting skills)? [...] Description 12/03/2025 11:30 AM EST Office Visit [facility] Speech Therapy Clinic [address] [place] [address] Sergey Tyson MD [address] [place] [address] [phone] Lorri Keenan, CCC-CONSTRUCTION GRIP [address] [place] [address] 12/10/2025 2:45 PM EST Office Visit [facility] Gastroenterology Clinic [address] [place] [address] Unknown, Unknown, Karlos Henning MD [address] [place] [phone] 02/02/2026 10:00 AM EDT Office Visit [facility] Pulmonology, Allergy and Critical Care Medicine Clinic [address] [place] [address] Rj Leiva MD [address] [place] [phone] [email or web address] 04/28/2026 8:00 AM EDT Office Visit [facility] Primary Care Clinic [address] [place] [address] Sergey Tyson MD [address] [place] [address] [phone] 05/20/2026 9:00 AM EDT Office Visit [facility] Cancer [place] [facility]cology [facility] at [facility] [address] [place] [address] Apple Talavera MD [address] [place] [phone] [email or web address] documented as of this encounter Visit Diagnoses Not on filedocumented in this encounter Additional Health Concerns Assessment Noted Time PHQ-9 Depression Total Score: 3 09/11/20 24 9:24 AM EDT PHQ-2 Depression Total Score: 1 09/11/20 24 9:24 AM EDT documented as of this encounter Care Teams Resident Associate Relationship Specialty Start Date End Date Sergey Tyson MD [address] [place] [address] [email or web address] PCP - General Internal Medicine 05/10/22 Omar Rocha MD [email or web address] Physical Medicine and Rehabilitation 05/08/21 Sagar Leung MD [address] [address] [email or web address] Obstetrics and Gynecology 05/08/21 Yefri Hilliard MD [address] [place] [address] Endocrinology 05/08/21 Karlos Murry MD [address] [place] [phone] Gastroenterology 02/27/22 Apple Talavera MD [address] [place] [address] Primary Oncologist Medical Oncology 02/19/23 Sergey Tyson MD [address] [place] [address] [email or web address] Insurance Assigned Provider 02/29/24 documented as of this encounter Additional Source Comments The information contained in this document represents components of the legal health record. It is not the complete legal health record.[facility]
--- OUTSIDE RECORDS SUMMARY | 2025-11-10 09:28 | XMS_ITS | Encounter Summary ---
Author Organization [facility] Address Formerly [facility] [email or web address] [facility] [address] [place] [address] Phone Care Team Providers Care Preparation Plant Supervisor Name Role Phone Karlos Lyons MD Primary Care Provider [phone] Karlos Lyons MD Unavailable [phone] Omar Rocha MD Unavailable [phone] Sagar Leung MD Unavailable Karlos Lyons MD Primary Care Provider + [phone] Yefri Hilliard MD Unavailable [phone] Karlos Murry MD Unavailable [phone] Sergey Tyson MD Primary Care Provider Apple Talavera MD Unavailable [phone] Sergey Tyson MD Unavailable Mena Mcwilliams RN Unavailable [phone] Encounter Details Date Type Department Care Team (Late st Contact Info) Description 09/04/2019 Ancillary Orders [facility] [address] [place] [address] Karlos Lyons MD [address] [place] [address] [email or web address] Breast [email or web address] Social History Tobacco [...] Description 12/03/2025 11:30 AM EST Office Visit [facility] Speech Therapy [address] [address] Sergey Tyson MD [address] [place] [address] [email or web address] Lorri Keenan, [facility] ADMINISTRATOR 8 [place] [address] 12/10/2025 2:45 PM EST Office Visit [facility] Gastroenterology [facility] 10 [place] [address] Unknown, Unknown, Karlos Henning MD [address] [place] [address] 02/02/2026 10:00 AM EDT Office Visit [facility] Pulmonology, Allergy and Critical Care Medicine Clinic 10 [place] [address] Rj Leiva MD 30 [place] [address] [email or web address] 04/28/2026 8:00 AM EDT Office Visit [facility] 40 [place] [address] Sergey Tyson MD 40 [place] [address] 05/20/2026 9:00 AM EDT Office Visit [facility] [place] [facility]ematology Oncology Clinic at [address] [address] Apple Talavera MD [address] [place] [address] [email or web address] documented as of this encounter Results * [...] lowers the sensitivity of mammography. POS - [id number] Narrative 09/04/2019 11:32 AM EDT Full-field digital [...] whichlowers the sensitivity of mammography. POS - [id number] Karlos Lyons MD IMG MG EXAMS Final [...] documented as of this encounter Care Teams Preparation Plant Supervisor Relationship Specialty Start Date End Date Karlos Lyons MD [address] [address] [email or web address] PCP - General Internal Medicine 07/14/14 05/07/21 Karlos Lyons MD [address] [address] [email or web address] PCP - General Internal Medicine 05/08/21 05/09/22 Sergey Tyson MD 40 [place] [address] [email or web address] PCP - General Internal Medicine 05/10/22 Karlos Lyons MD [address] [place] [address] [email or web address] Insurance Assigned Provider 02/23/17 03/02/23 Omar Rocha MD [address] [place] [address] [email or web address] Physical Medicine and Rehabilitation 05/08/21 Sagar Leung MD [address] [place] [address] [email or web address] Obstetrics and Gynecology 05/08/21 Yefri Hilliard MD [address] [place] [address] Endocrinology 05/08/21 Karlos Murry MD [address] [place] [address] Gastroenterology 02/27/22 Apple Talavera MD [address] [place] [email or web address] Primary Oncologist Medical Oncology 02/19/23 Sergey Tyson MD 40 [place] [address] [email or web address] Insurance Assigned Provider 02/29/24 Mena Mcwilliams, RN 10 [place] [address] [email or web address] 11/13/23 12/11/23 documented as of this encounter Additional Source Comments The information contained in this document represents components of the legal health record. It is not the complete legal health record.[facility]
--- OUTSIDE RECORDS SUMMARY | 2025-11-10 09:28 | XMS_ITS | Encounter Summary ---
Author Organization [facility] Address [address] [place] [address] [address] [place] [address] Phone Care Team Providers Care Regional Economic Liaison Name Role Phone Karlos Lyons MD Unavailable [phone] Omar Rocha MD Unavailable Sagar Leung MD Unavailable Karlos Lyons MD Primary Care Provider [phone] Yefri Hilliard MD Unavailable [phone] Karlos Murry MD Unavailable [phone] Sergey Tyson MD Primary Care Provider [phone] Apple Talavera MD Unavailable Sergey Tyson MD Unavailable Mena Mcwilliams RN Unavailable Encounter Details Date Type Department Care Team (Latest Contact Info) Description 11/13/2021 Transcribe Orders Virtual Department 30 [place], [place] [phone] Omar Rocha MD [address] [place] [address] [email or web address] Right foot pain (Primary Dx) Social History [...] Description 12/03/2025 11:30 AM EST Office Visit [facility] Speech Therapy Clinic [address] [place] [address] Sergey Tyson MD [address] [place] [address] Lorri Keenan, CCC-FIGURE CLERK 8 [place] [address] 12/10/2025 2:45 PM EST Office Visit [facility] Gastroenterology Clinic 10 [place] [address] Unknown, Unknown, Karlos Henning MD [address] [place] [address] 02/02/2026 10:00 AM EDT Office Visit [facility] Pulmonology, Allergy and Critical Care Medicine Clinic 10 [place] [address] Rj Leiva MD [address] [place] [address] [email or web address] 04/28/2026 8:00 AM EDT Office Visit [facility] Primary Care Clinic 40 [place] [address] Sergey Tyson MD 40 [place] [address] 05/20/2026 9:00 AM EDT Office Visit [facility] Cancer [place] [facility]ematology Oncology Clinic at [facility] 30 [place] [address] Apple Talavera MD 30 [place] [address] [email or web address] documented as of this encounter Results * [...] as of this encounter Care Teams Regional Economic Liaison Relationship Specialty Start Date End Date Karlos Lyons MD [address] [place] [address] [email or web address] PCP - General Internal Medicine 05/08/21 05/09/22 Sergey Tyson MD [address] [place] [address] [email or web address] PCP - General Internal Medicine 05/10/22 Karlos Lyons MD [address] [place] [address] [email or web address] Insurance Assigned Provider 02/23/17 03/02/23 Omar Rocha MD [address] [place] [address] [email or web address] Physical Medicine and Rehabilitation 05/08/21 Sagar Leung MD [address] [place] [address], [address] [place] [address] Obstetrics and Gynecology 05/08/21 Yefri Hilliard MD [address] [place] [address] Endocrinology 05/08/21 Karlos Murry MD [address] [place] [address] [email or web address] Gastroenterology 02/27/22 Apple Talavera MD [address] [place] [address] [email or web address] Primary Oncologist Medical Oncology 02/19/23 Sergey Tyson MD [address] [place] [address] [email or web address] Insurance Assigned Provider 02/29/24 Mena Mcwilliams RN [address] [place] [address] [email or web address] [facility] [employer]ater 11/13/23 12/11/23 documented as of this encounter Additional Source Comments The information contained in this document represents components of the legal health record. It is not the complete legal health record.[facility]
--- OUTSIDE RECORDS SUMMARY | 2025-11-10 09:28 | XMS_ITS | Encounter Summary ---
Author Organization [facility] Address [address] [place] [address] [address] [place] [address] Phone Care Team Providers Care Ios Architect Name Role Phone Omar Rocha MD Unavailable Sagar Leung MD Unavailable Yefri Hilliard MD Unavailable Karlos Murry MD Unavailable Sergey Tyson MD Primary Care Provider Apple Talavera MD Unavailable [phone] Sergey Tyson MD Unavailable Reason for Referral * Outpatient Procedure - Closed Specialty Diagnoses / Procedures Referred By Jessica balbuena Referred To Contact Radiology Diagnoses Weight loss Procedures US Abdomen Arteries Duplex Limited Karlos Murry MD [address] [place] [address] Phone: tel: fax: mailto: Referral ID Status Reason Start Date Expiration Date Visits Re quested Visits Authorized [id number] Closed 02/03/2024 1 1 Encounter Details Date Type Department Care Team (Latest Contact Info) Description 02/03/2024 Transcribe Orders Virtual Department 30 [place] [address] Karlos Murry MD [address] [address] Weight loss (Primary Dx) Social History Tobacco [...] Description 12/03/2025 11:30 AM EST Office Visit [facility] Speech Therapy [facility] 8 [place] [address] Sergey Tyson MD [address] [address] Lorri Keenan, CCC-ASBESTOS COVERER [address] [place] [address] 12/10/2025 2:45 PM EST Office Visit [facility] Gastroenterology Clinic [address] [place] [address] Unknown, Unknown, Karlos Henning MD [address] [place] [address] 02/02/2026 10:00 AM EDT Office Visit [facility] Pulmonology, Allergy and Critical Care Medicine Clinic [address] [place] [address] Rj Leiva MD [address] [place] [address] [email or web address] 04/28/2026 8:00 AM EDT Office Visit [facility] Primary Care Clinic [address] [place] [address] Sergey Tyson MD [address] [place] [address] [phone] 05/20/2026 9:00 AM EDT Office Visit [facility] Cancer [place] Hematology Oncology Clinic at [address] [address] Apple Talavera MD 30 [place] [address] [email or web address] documented as of this encounter Results * [...] ischemia. Karlos Murry MD IMG US ABDOMEN Final Resu lt documented in this encounter Visit Diagnoses Diagnosis Weight loss- Primary Loss of weight Weight loss Loss of weight documented in this encounter Additional Health Concerns Assessment Noted Time PHQ-2 Depression Total Score: 0 01/28/20 23 6:26 PM EST documented as of this encounter Care Teams Ios Architect Relationship Specialty Start Date End Date Sergey Tyson MD [address] [place] [address] PCP - General Internal Medicine 05/10/22 Omar Rocha MD [email or web address] 05/08/21 Sagar Leung MD [address] [place] [address] 102 [place] [address] Obstetrics and Gynecology 05/08/21 Yefri Hilliard MD [address] [place] [address] Endocrinology 05/08/21 Karlos Murry MD [address] [place] [address] Gastroenterology 02/27/22 Apple Talavera MD [address] [place] [address] [email or web address] Primary Oncologist Medical Oncology 02/19/23 Sergey Tyson MD [address] [place] [address] [email or web address] Insurance Assigned Provider 02/29/24 documented as of this encounter Additional Source Comments The information contained in this document represents components of the legal health record. It is not the complete legal health record.[facility]
--- OUTSIDE RECORDS SUMMARY | 2025-11-10 09:28 | XMS_ITS | Encounter Summary ---
Author Organization [facility] Address [facility] [address] [facility] [address] [place] [address] Phone Care Team Providers Care Ski Lift Operator Name Role Phone Karlos Lyons MD Unavailable Omar Rocha MD Unavailable Sagar Leung MD Unavailable Karlos Lyons MD Primary Care Provider Yefri Hilliard MD Unavailable Karlos Murry MD Unavailable [phone] Sergey Tyson MD Primary Care Provider [phone] Apple Talavera MD Unavailable [phone] Sergey Tyson MD Unavailable Mena Mcwilliams RN Unavailable [phone] Encounter Details Date Type Department Care Team (Late st Contact Info) Description 10/25/2021 Procedure Pass [address] [address] Social History Tobacco Use Types Packs/Day Years [...] Description 12/03/2025 11:30 AM EST [facility] 8 [place] [address] Sergey Tyson MD [address] [place] [address] Lorri Keenan, [facility] [employer]URANCE 8 [place] [address] 12/10/2025 2:45 PM EST Office Visit [facility] Gastroenterology Clinic [address] [place] [address] Unknown, Unknown, Karlos Henning MD [address] [place] [address] 02/02/2026 10:00 AM EDT Office Visit [facility] Pulmonology, Allergy and Critical Care Medicine Clinic [address] [place] [address] Rj Leiva MD [address] [place] [address] [email or web address] 04/28/2026 8:00 AM EDT Office Visit [facility] Primary Care Clinic [address] [place] [address] Sergey Tyson MD [address] [place] [address] [phone] [email or web address] 05/20/2026 9:00 AM EDT Office Visit [facility] Cancer [place] Hematology Oncology Clinic at [facility] 30 [place] [address] Apple Talavera MD 30 [place] [address] [email or web address] documented as of this encounter Visit Diagnoses Not on filedocumented in this encounter Additional Health Concerns Infection Onset Date Last Indicated Resolved Time CoV-Risk 05/07/2022 05/07/2022 05/18/2022 1:24 AM EDT Assessment Noted Time PHQ-2 Depression Total Score: 0 05/05/20 9:23 PM EDT documented as of this encounter Care Teams Ski Lift Operator Relationship Specialty Start Date End Date Karlos Lyons MD [address] [place] [address] [email or web address] PCP - General Internal Medicine 05/08/21 05/09/22 Sergey Tyson MD [address] [place] [address] [email or web address] PCP - General Internal Medicine 05/10/22 Karlos Lyons MD [address] [place] [address] [email or web address] Insurance Assigned Provider 02/23/17 03/02/23 Omar Rocha MD [address] [place] [address] [email or web address] Physical Medicine and Rehabilitation 05/08/21 Sagar Leung MD [address] [place] [address], [address] [place] [address] [email or web address] Obstetrics and Gynecology 05/08/21 Yefri Hilliard MD [address] [place] [address] Endocrinology 05/08/21 Karlos Murry MD [address] [place] [address] Gastroenterology 02/27/22 Apple Talavera MD [address] [place] [address] Primary Oncologist Medical Oncology 02/19/23 Sergey Tyson MD [address] [place] [address] Insurance Assigned Provider 02/29/24 Mena Mcwilliams, RN [address] [place] [address] [email or web address] PHCM Entry Operator 11/13/23 12/11/23 documented as of this encounter Additional Source Comments The information contained in this document represents components of the legal health record. It is not the complete legal health record.[facility]
--- OUTSIDE RECORDS SUMMARY | 2025-11-10 09:28 | XMS_ITS | Encounter Summary ---
Author Organization [facility] Address [address] [place] [address] [address] [place] [address] Phone Care Team Providers Care Machine I Engraver Name Role Phone aKrlos Lyons MD Unavailable Omar Rocha MD Unavailable Sagar Leung MD Unavailable Karlos Lyons MD Primary Care Provider [phone] Yefri Hilliard MD Unavailable [phone] Karlos Murry MD Unavailable [phone] Sergey Tyson MD Primary Care Provider [phone] Apple Talavera MD Unavailable [phone] Sergey Tyson MD Unavailable Mena Mcwilliams RN Unavailable [phone] Encounter Details Date Type Department Care Team (Late st Contact Info) Description 01/23/2022 Procedure Pass [facility] Endoscopy Admitting Dept Virtual Department [address] [place] [address] Social History Tobacco Use Types Packs/Day Years [...] [facility] 8 [place] [address] Sergey Tyson MD [address] [place] [address] [email or web address] Lorri Keenan, [facility] 8 [place] [address] 12/10/2025 2:45 PM EST Office Visit [facility] Gastroenterology Clinic [address] [place] [address] Unknown, Unknown, MD Murry, Karlos Martines MD [address] [place] [address] 02/02/2026 10:00 AM EDT Office Visit [facility] Pulmonology, Allergy and Critical Care Medicine Clinic 10 [place] [address] Rj Leiva MD [address] [place] [address] josé 04/28/2026 8:00 AM EDT Office Visit [facility] Primary Care Clinic [address] [place] [address] Sergey Tyson MD [address] [place] [address] [phone] [email or web address] 05/20/2026 9:00 AM EDT Office Visit [facility] Cancer [place] Hematology Oncology Clinic at [address] [address] Apple Talavera MD 30 [place] [address] [email or web address] documented as of this encounter Visit Diagnoses Not on filedocumented in this encounter Additional Health Concerns Infection Onset Date Last Indicated Resolved Time CoV-Risk 05/07/2022 05/07/2022 05/18/2022 1:24 AM EDT Assessment Noted Time PHQ-2 Depression Total Score: 0 05/05/20 9:23 PM EDT documented as of this encounter Care Teams Machine I Engraver Relationship Specialty Start Date End Date Karlos Lyons MD [address] [place] [address] [email or web address] PCP - General Internal Medicine 05/08/21 05/09/22 Sergey Tyson MD [address] [place] [address] [email or web address] PCP - General Internal Medicine 05/10/22 Karlos Lyons MD [address] [place] [address] [email or web address] Insurance Assigned Provider 02/23/17 03/02/23 Omar Rocha MD [address] [place] [address] [email or web address] Physical Medicine and Rehabilitation 05/08/21 Sagar Leung MD [address] [place] [address], [address] [place] [address] [email or web address] Obstetrics and Gynecology 05/08/21 Yefri Hilliard MD [address] [place] [address] Endocrinology 05/08/21 Karlos Murry MD [address] [place] [address] [email or web address] Gastroenterology 02/27/22 Apple Talavera MD [address] [place] [address] Primary Oncologist Medical Oncology 02/19/23 Sergey Tyson MD [address] [place] [address] [email or web address] Insurance Assigned Provider 02/29/24 Mena Mcwilliams, RN [address] [place] [address] [email or web address] PHCM Affirmative Action Specialist 11/13/23 12/11/23 documented as of this encounter Additional Source Comments The information contained in this document represents components of the legal health record. It is not the complete legal health record.[facility]
--- OUTSIDE RECORDS SUMMARY | 2025-11-10 09:28 | XMS_ITS | Encounter Summary ---
Author Organization [facility] Address [facility] [employer] [facility] [address] [place] [address] Phone Care Team Providers Care Underground Truck Operator Name Role Phone Omar Rocha MD Unavailable [phone] Sagar Leung MD Unavailable Yefri Hilliard MD Unavailable [phone] Karlos Murry MD Unavailable Sergey Tyson MD Primary Care Provider Apple Talavera MD Unavailable Sergey Tyson MD Unavailable Encounter Details Date Type Department Care Team (Latest Contact Info) Description 03/09/2024 Transcribe Orders Virtual Department 30 [place] [address] Omar Rocha MD [address] [place] [address] [email or web address] Thoracic spine pain (Primary Dx) Social History [...] high school, GED, job training, learning the [place] language, technical skills, or developing parenting skills)? [...] Visit [facility] 8 [place] [address] Sergey Tyson MD [address] [place] [address] Lorri Keenan, CCC-HEALTHCARE FACILITY ADMINISTRATOR 8 [place] [address] 12/10/2025 2:45 PM EST Office Visit [facility] Gastroenterology Clinic 10 [place] [address] Unknown, Huey, MD Murry, Karlos Martines MD [address] [place] [address] 02/02/2026 10:00 AM EDT Office Visit [facility] Pulmonology, Allergy and Critical Care Medicine Clinic 10 [place] [address] Rj Leiva MD [address] [place] [address] [email or web address] 04/28/2026 8:00 AM EDT Office Visit [facility] Primary Care Clinic [address] [place] [address] Sergey Tyson MD [address] [place] [address] 05/20/2026 9:00 AM EDT Office Visit [facility] Cancer [place] Hematology Oncology Clinic at [facility] 30 [place] [address] Apple Talavera MD [address] [place] [address] documented as of this encounter Results * [...] documented as of this encounter Care Teams Underground Truck Operator Relationship Specialty Start Date End Date Sergey Tyson MD [address] [place] [address] PCP - General Internal Medicine 05/10/22 Omar Rocha MD [email or web address] 05/08/21 Sagar Leung MD [address] [place] [address], [address] [place] [address] Obstetrics and Gynecology 05/08/21 Yefri Hilliard MD [address] [place] [address] Endocrinology 05/08/21 Karlos Murry MD [address] [place] [address] Gastroenterology 02/27/22 Apple Talavera MD [address] [place] [address] Primary Oncologist Medical Oncology 02/19/23 Sergey Tyson MD [address] [place] [address] Insurance Assigned Provider 02/29/24 documented as of this encounter Additional Source Comments The information contained in this document represents components of the legal health record. It is not the complete legal health record.[facility]
--- OUTSIDE RECORDS SUMMARY | 2025-11-10 09:28 | XMS_ITS | Encounter Summary ---
Author Organization [facility] Address Formerly [facility] ([place], [place]) [address] [place] [address] Phone Care Team Providers Care Plain Goods Hemmer Name Role Phone Karlos Lyons MD Unavailable Omar Rocha MD Unavailable [phone] Sagar Leung MD Unavailable Yefri Hilliard MD Unavailable [phone] Karlos Murry MD Unavailable [phone] Sergey Tyson MD Primary Care Provider Apple Talavera MD Unavailable [phone] Sergey Tyson MD Unavailable Mena Mcwilliams RN Unavailable [phone] Encounter Details Date Type Department Care Team (Late st Contact Info) Description 02/27/2023 Procedure Pass [facility], [address] [address] Social History Tobacco Use Types Packs/Day Years [...] Visit [facility] [address] [place] [address] Sergey Tyson MD 40 [place] [address] Lorri Keenan, CCC-FOUNTAIN PEN TURNER 8 [place] [address] 12/10/2025 2:45 PM EST Office Visit [facility] 10 [place] [address] Unknown, Unknown, Karlos Henning MD [address] [place] [address] 02/02/2026 10:00 AM EDT Office Visit [facility] Pul[facility]ology, Allergy [facility] Critical [facility] Medicine [facility] 10 [place] [address] Rj Leiva MD [address] [place] [address] [email or web address] 04/28/2026 8:00 AM EDT Office Visit [facility] 40 [place] [address] Sergey Tyson MD [address] [place] [address] 05/20/2026 9:00 AM EDT Office Visit [facility] [place] [facility]emat[facility] Oncology Clinic at [facility] 30 [place] [address] Apple Talavera MD [address] [place] [address] documented as of this encounter Visit Diagnoses Not on filedocumented in this encounter Additional Health Concerns Assessment Noted Time PHQ-2 Depression Total Score: 0 01/28/20 23 6:26 PM EST documented as of this encounter Care Teams Plain Goods Hemmer Relationship Specialty Start Date End Date Sergey Tyson MD [address] [place] [address] [email or web address] PCP - General Internal Medicine 05/10/22 Karlos Lyons MD [address] [place] [address] [email or web address] Insurance Assigned Provider 02/23/17 03/02/23 Omar Rocha MD [address] [place] [address] [email or web address] Physical Medicine and Rehabilitation 05/08/21 Sagar Leung MD [address] [place] [address] [email or web address] Obstetrics and Gynecology 05/08/21 Yefri Hilliard MD [address] [place] [address] Endocrinology 05/08/21 Karlos Murry MD [address] [place] [address] [email or web address] Gastroenterology 02/27/22 Apple Talavera MD [address] [place] [email or web address] Primary Oncologist Medical Oncology 02/19/23 Sergey Tyson MD [address] [place] [address] [email or web address] Insurance Assigned Provider 02/29/24 Mena Mcwilliams, RN [address] [place] [address] [email or web address] PHCM Pin Ball Machine Mechanic 11/13/23 12/11/23 documented as of this encounter Additional Source Comments The information contained in this document represents components of the legal health record. It is not the complete legal health record.[facility]
--- OUTSIDE RECORDS SUMMARY | 2025-11-10 09:28 | XMS_ITS | Encounter Summary ---
Author Organization [facility] Address [address] [place] [address] 985 [place] [address] Phone Care Team Providers Care Hyster Machine Operator Name Role Phone Karlos Lyons MD Unavailable [phone] Omar Rocha MD Unavailable Sagar Leung MD Unavailable Karlos Lyons MD Primary Care Provider [phone] Yefri Hilliard MD Unavailable Karlos Murry MD Unavailable [phone] Sergey Tyson MD Primary Care Provider Apple Talavera MD Unavailable Sergey Tyson MD Unavailable Mena Mcwilliams RN Unavailable [phone] Encounter Details Date Type Department Care Team (Latest Contact Info) Description 10/25/2021 Transcribe Orders Virtual Department 30 [place], [place] [phone] Karlos Lyons MD [address] [phone] [email or web address] Breast screening (Primary Dx) Social History [...] Description 12/03/2025 11:30 AM EST Office Visit [facility] Therapy [facility] [address] [place] [address] Sergey Tyson MD [address] [place] [address] Lorri Keenan, CCC-PRECISION STRUCTURAL METAL FITTER 8 [place] [address] 12/10/2025 2:45 PM EST Office Visit [facility] Gastroenterology Clinic 10 [place] [address] Unknown, Unknown, Karlos Henning MD [address] [place] [address] 02/02/2026 10:00 AM EDT Office Visit [facility] Pulmonology, Allergy and Critical Care Medicine Clinic 10 [place] [address] Rj Leiva MD 30 [place] [address] [email or web address] 04/28/2026 8:00 AM EDT Office Visit [facility] 40 [place] [address] Sergey Tyson MD 40 [place] [address] [email or web address] 05/20/2026 9:00 AM EDT Office Visit [facility] Cancer [place] Hematology Oncology Clinic at [facility] 30 [place] [address] Apple Talavera MD [address] [place] [address] [email or web address] documented as of this encounter Results * [...] documented as of this encounter Care Teams Hyster Machine Operator Relationship Specialty Start Date End Date Karlos Lyons MD [address] [place] [address] [email or web address] PCP - General Internal Medicine 05/08/21 05/09/22 Sergey Tyson MD [address] [place] [address] [email or web address] PCP - General Internal Medicine 05/10/22 Karlos Lyons MD [address] [place] [address] [email or web address] Insurance Assigned Provider 02/23/17 03/02/23 Omar Rocha MD [address] [place] [address] [email or web address] 05/08/21 Sagar Leung MD 22 [facility] 102 [place] [address] [email or web address] Obstetrics and Gynecology 05/08/21 Yefri Hilliard MD [address] [place] [address] Endocrinology 05/08/21 Karlos Murry MD [address] [place] [address] [email or web address] Gastroenterology 02/27/22 Apple Talavera MD [address] [place] [address] [email or web address] Primary Oncologist Medical Oncology 02/19/23 Sergey Tyson MD [address] [place] [address] [email or web address] Insurance Assigned Provider 02/29/24 Mena Mcwilliams RN [address] [place] [address] [email or web address] PHCM Site Auditor 11/13/23 12/11/23 documented as of this encounter Additional Source Comments The information contained in this document represents components of the legal health record. It is not the complete legal health record.[facility]
--- OUTSIDE RECORDS SUMMARY | 2025-11-10 09:28 | XMS_ITS | Encounter Summary ---
Author Organization [facility] Address [address] [place] [address] [address] [place] [address] Phone Care Team Providers Care Welt Treater Name Role Phone Karlos Lyons MD Primary Care Provider Karlos Lyons MD Unavailable [phone] Omar Rocha MD Unavailable [phone] Sagar Leung MD Unavailable Karlos Lyons MD Primary Care Provider [phone] Yefri Hilliard MD Unavailable [phone] Karlos Murry MD Unavailable [phone] Sergey Tyson MD Primary Care Provider [phone] Apple Talavera MD Unavailable [phone] Sergey Tyson MD Unavailable Mena Mcwilliams RN Unavailable [phone] Reason for Referral * MRI/CAT Scan - Closed Specialty Diagnoses / Procedures Referred By Jessica balbuena Referred To Contact Radiology Diagnoses Lumbar radiculopathy 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 Procedures MRI Lumbar Spine Omar Rocha MD Phone: tel: fax: mailto:[email or web address] Referral ID Status Reason Start Date Expiration Date Visits Re quested Visits Authorized [id number] Closed 10/07/2019 10/06/2020 1 1 Encounter Details Date Type Department Care Team (Latest Contact Info) Description 10/07/2019 Ancillary Orders Virtual Department 30 [place] [address] Omar Rocha MD [address] [place] [address] [email or web address] Lumbar radiculopathy; Displacement of intervertebral disc of [...] Office Visit [facility] [address] [place] [address] Sergey Tyson MD [address] [place] [address] Lorri Keenan [facility] SUPERVISOR 8 [place] [address] 12/10/2025 2:45 PM EST Office Visit [facility] Gastroenterology Clinic 10 [place] [address] Unknown, Unknown, MD Murry, Karlos Martines MD 10 [facility] 2 [place] [address] [email or web address] 02/02/2026 10:00 AM EDT Office Visit [facility] Pulmonology, Allergy and Critical Care Medicine Clinic 10 [facility] [place] [address] Rj Leiva MD [address] [place] [address] [email or web address] 04/28/2026 8:00 AM EDT Office Visit [facility] Primary Care Clinic 40 [place] [address] Sergey Tyson MD 40 [place] [address] [email or web address] 05/20/2026 9:00 AM EDT Office Visit [facility] [place] Hematology Oncology Clinic at [facility] 30 [place] [address] Apple Talavera MD [address] [place] [address] [email or web address] documented as of this [...] renal lesions that appear similar in size [id number]. Posterior paraspinal soft tissues are unremarkable. IMPRESSION: Multilevel degenerative changes as described above, progressed from 2009study. Moderate canal stenosis at L3-L4. Moderate neuroforaminal stenosison the left at L4-L5 associated with mild compression of the left A0cuxexac nerve root. POS - [id number] Omar Rocha MD [facility] XSPECIALTY Final Result documented in this [...] documented as of this encounter Care Teams Welt Treater Relationship Specialty Start Date End Date Karlos Lyons MD [address] [address] [email or web address] PCP - General Internal Medicine 07/14/14 05/07/21 Karlos Lyons MD [address] [place] [address] [email or web address] PCP - General Internal Medicine 05/08/21 05/09/22 Sergey Tyson MD [address] [place] [address] [email or web address] PCP - General Internal Medicine 05/10/22 Karlos Lyons MD [address] [place] [address] [email or web address] Insurance Assigned Provider 02/23/17 03/02/23 Omar Rocha MD [address] [address] [email or web address] Physical Medicine and Rehabilitation 05/08/21 Sagar Leung MD 22 [facility] [address] [place] [address] [email or web address] Obstetrics and Gynecology 05/08/21 Yefri Hilliard MD [address] [place] [address] Endocrinology 05/08/21 Karlos Murry MD [address] [place] [address] [email or web address] Gastroenterology 02/27/22 Apple Talavera MD [address] [place] [address] [email or web address] Primary Oncologist Medical Oncology 02/19/23 Sergey Tyson MD [address] [place] [address] [email or web address] Insurance Assigned Provider 02/29/24 Mena Mcwilliams, RN [address] [place] [address] [email or web address] [employer] 11/13/23 12/11/23 documented as of this encounter Additional Source Comments The information contained in this document represents components of the legal health record. It is not the complete legal health record.[facility]
--- OUTSIDE RECORDS SUMMARY | 2025-11-10 09:28 | XMS_ITS | Encounter Summary ---
Author Organization [facility] Address [address] [place] [address] Phone Care Team Providers Care Machining Department Supervisor Name Role Phone Karlos Lyons MD Primary Care Provider Karlos Lyons MD Unavailable [phone] Omar Rocha MD Unavailable [phone] Sagar Leung MD Unavailable Karlos Lyons MD Primary Care Provider [phone] Yefri Hilliard MD Unavailable [phone] Karlos Murry MD Unavailable [phone] Sergey Tyson MD Primary Care Provider Apple Talavera MD Unavailable [phone] Sergey Tyson MD Unavailable Mena Mcwilliams RN Unavailable [phone] Encounter Details Date Type Department Care Team (Late st Contact Info) Description 10/07/2019 Procedure Pass [facility], [facility] - [address] [place] [address] Social History Tobacco Use Types Packs/Day Years [...] Office Visit [facility] [address] [place] [address] Sergey Tyson MD [address] [place] [address] [email or web address] Lorri Keenan, [facility]-SKILL[facility] INSTRUCTOR [address] [place] [address] 12/10/2025 2:45 PM EST Office Visit [facility] Gastroenterology Clinic 10 [place] [address] Unknown, Unknown, MD Murry, Karlos Martines MD [address] [place] [address] 02/02/2026 10:00 AM EDT Office Visit [facility] Pulmonology, Allergy and Critical Care Medicine Clinic 10 [place] [address] Rj Leiva MD [address] [place] [address] [email or web address] 04/28/2026 8:00 AM EDT Office Visit [facility] Primary Care Clinic 40 [place] [address] Sergey Tyson MD [address] [place] [address] [email or web address] 05/20/2026 9:00 AM EDT Office Visit [facility] Hematology Oncology Clinic at [address] [address] Apple Talavera MD [address] [place] [address] [email or web address] documented as of this encounter Visit Diagnoses Not on filedocumented in this encounter Additional Health Concerns Infection Onset Date Last Indicated Resolved Time CoV-Risk 05/07/2022 05/07/2022 05/18/2022 1:24 AM EDT Assessment Noted Time PHQ-2 Depression Total Score: 0 10/20/20 18 10:00 AM EST documented as of this encounter Care Teams Machining Department Supervisor Relationship Specialty Start Date End Date Karlos Lyons MD [address] [place] [address] [email or web address] PCP - General Internal Medicine 07/14/14 05/07/21 Karlos Lyons MD [address] [place] [address] [email or web address] PCP - General Internal Medicine 05/08/21 05/09/22 Sergey Tyson MD [address] [place] [address] [email or web address] PCP - General Internal Medicine 05/10/22 Karlos Lyons MD [address] [place] [address] [email or web address] Insurance Assigned Provider 02/23/17 03/02/23 Omar Rocha MD [address] [place] [address] [email or web address] and [email or web address] 05/08/21 Sagar Leung MD [address] [place] [address] [email or web address] Obstetrics and Gynecology 05/08/21 Yefri Hililard MD [address] [place] [address] Endocrinology 05/08/21 Karlos Murry MD [address] [place] [address] [email or web address] Gastroenterology 02/27/22 Apple Talavera MD [address] [place] [address] [email or web address] Primary Oncologist Medical Oncology 02/19/23 Sergey Tyson MD [address] [place] [address] [email or web address] Insurance Assigned Provider 02/29/24 Mena Mcwilliams RN [address] [place] [address] [facility] [employer] 11/13/23 12/11/23 documented as of this encounter Additional Source Comments The information contained in this document represents components of the legal health record. It is not the complete legal health record.[facility]
--- OUTSIDE RECORDS SUMMARY | 2025-11-10 09:29 | XMS_ITS | Encounter Summary ---
Author Organization [facility] Address [address] [place] [address] [place] [address] Phone Care Team Providers Care Water Trainer Name Role Phone Karlos Lyons MD Primary Care Provider + [phone] Karlos Lyons MD Unavailable [phone] Omar Rocha MD Unavailable [phone] Sagar Leung MD Unavailable Karlos Lyons MD Primary Care Provider + [phone] Yefri Hilliard MD Unavailable [phone] Karlos Murry MD Unavailable [phone] Sergey Tyson MD Primary Care Provider [phone] Apple Talavera MD Unavailable [phone] Sergey Tyson MD Unavailable Mena Mcwilliams RN Unavailable [phone] Reason for Referral * Consultation (Within 1 month) - Closed Specialty Diagnoses / Procedures Referred By Jessica balbuena Referred To Contact Rheumatology Marquita Jacobo MD Phone: tel: fax: mailto:[email or web address] Referral ID Status Reason Start Date Expiration Date Visits Re quested Visits Authorized [id number] Closed 05/30/2018 05/31/2019 1 1 Encounter Details Date Type Department Care Team (Late Contact Info) Description 05/30/2018 Transcribe Orders [facility] [address] [place] [address], [address]th Floor, [address] [place] [address] Marquita Jacobo MD [address] [place] [phone] Social History Tobacco Use Types Packs/Day Years [...] 12/03/2025 11:30 AM EST Office Visit [facility] [place] 8 [place] [address] Sergey Tyson MD [address] [place] [address] Lorri Keenan, [facility] 8 [place] [address] 12/10/2025 2:45 PM EST Office Visit [facility] Gastroenterology Clinic 10 [place] [address] Unknown, Unknown, Karlos Henning MD [address] [place], [place] [address], [place] [address] [email or web address] 02/02/2026 10:00 AM EDT Office Visit [facility] Pulmonology, Allergy and Critical Care Medicine Clinic 10 [facility] [place] [address] Rj Leiva MD 30 [place] [address] [email or web address] 04/28/2026 8:00 AM EDT Office Visit [facility] Primary Care Clinic 40 [place] [address] Sergey Tyson MD 40 [place] [address] [email or web address] 05/20/2026 9:00 AM EDT Office Visit [facility] [place] Hematology Oncology Clinic at [facility] 30 [place] [address] Apple Talavera MD 30 [place] [address] [email or web address] Scheduled Referrals Name Type Priority Associated Diagnoses Order Schedule Ambulatory referral to [facility] Rhe[facility] Outpatient Referral Routine Ordered: 05/30/2018 documented as of this encounter Visit Diagnoses Not on filedocumented in this encounter Additional Health Concerns Infection Onset Date Last Indicated Resolved Time CoV-Risk 05/07/2022 05/07/2022 05/18/2022 1:24 AM EDT documented as of this encounter Care Teams Water Trainer Relationship Specialty Start Date End Date Karlos Lyons MD [address] [place] [address] [email or web address] PCP - General Internal Medicine 07/14/14 05/07/21 Karlos Lyons MD [address] [address] [email or web address] PCP - General Internal Medicine 05/08/21 05/09/22 Sergey Tyson MD [address] [place] [address] [email or web address] PCP - General Internal Medicine 05/10/22 Karlos Lyons MD [address] [place] [address] [email or web address] Insurance Assigned Provider 02/23/17 03/02/23 Omar Rocha MD [address] [place] [address] [email or web address] 05/08/21 Sagar Leung MD [address] [place] [address] [email or web address] Obstetrics and Gynecology 05/08/21 Yefri Hilliard MD [address] [place] [address] Endocrinology 05/08/21 Karlos Murry MD [address] [place] [address] [email or web address] Gastroenterology 02/27/22 Apple Talavera MD [address] [place] [address] @[email or web address] Primary Oncologist Medical Oncology 02/19/23 Sergey Tyson MD [address] [place] [address] [email or web address] Insurance Assigned Provider 02/29/24 Mena Mcwilliams RN [address] [place] [address] [email or web address] Carton Machine Operator 11/13/23 12/11/23 documented as of this encounter Additional Source Comments The information contained in this document represents components of the legal health record. It is not the complete legal health record.[facility]
--- OUTSIDE RECORDS SUMMARY | 2025-11-10 09:29 | XMS_ITS | Encounter Summary ---
Author Organization Formerly [facility] Address [address] [place] [address] 9[address] [place] [address] Phone Care Team Providers Care Manager Engine Name Role Phone Karlos Lyons MD Primary Care Provider Karlos Lyons MD Unavailable [phone] Omar Rocha MD Unavailable [phone] Sagar Leung MD Unavailable Karlos Lyons MD Primary Care Provider + [phone] Yefri Hilliard MD Unavailable [phone] Karlos Murry MD Unavailable [phone] Sergey Tyson MD Primary Care Provider [phone] Apple Talavera MD Unavailable [phone] Sergey Tyson MD Unavailable Mena Mcwilliams RN Unavailable [phone] Encounter Details Date Type Department Care Team (Late st Contact Info) Description 12/02/2017 Ancillary Orders [facility], [facility] - [facility] [address] [place] [address] Omar Rocha MD 7[address] [place] [address] Pain of right forearm Social History Tobacco [...] Description 12/03/2025 11:30 AM EST Office Visit [facility] Speech Therapy Clinic [address] [place] [address] Sergey Tyson MD [address] [place] [address] Lorri Keenan, CCC-OPTOMETRIC TECHNOLOGIST 8 [place] [address] 12/10/2025 2:45 PM EST Office Visit [facility] Gastroenterology Clinic [address] [place] [address] Unknown, Unknown, Karlos Henning MD [address] [place] [address] 02/02/2026 10:00 AM EDT Office Visit [facility] Pulmonology, Allergy and Critical Care Medicine Clinic 10 [place] [address] Rj Leiva MD [address] [place] [address] [email or web address] 04/28/2026 8:00 AM EDT Office Visit [facility] Primary Care Clinic 40 [place] [address] Sergey Tyson MD 40 [place] [address] [email or web address] 05/20/2026 9:00 AM EDT Office Visit [facility] Cancer [place] [facility] [place] [address] [address] Apple Talavera MD [address] [place] [address] [email or web address] documented [...] [id number] Omar Rocha MD IMG XR UPPER EXTREMITY Final Result documented in this encounter Visit Diagnoses Diagnosis Pain of right forearm Pain of right forearm documented in this encounter Additional Health Concerns Infection Onset Date Last Indicated Resolved Time CoV-Risk 05/07/2022 05/07/2022 05/18/2022 1:24 AM EDT documented as of this encounter Care Teams Manager Engine Relationship Specialty Start Date End Date Karlos Lyons MD [address] [place] [address] [email or web address] PCP - General Internal Medicine 07/14/14 05/07/21 Karlos Lyons MD [address] [place] [address] [email or web address] PCP - General Internal Medicine 05/08/21 05/09/22 Sergey Tyson MD [address] [place] [address] [email or web address] PCP - General Internal Medicine 05/10/22 Karlos Lyons MD [address] [place] [address] [email or web address] Insurance Assigned Provider 02/23/17 03/02/23 Omar Rocha MD [address] [place] [address] Physical Medicine and Rehabilitation 05/08/21 Sagar Leung MD [address] [place] [address] 102 [place] [address] Obstetrics and Gynecology 05/08/21 Yefri Hilliard MD [address] [place] [address] Endocrinology 05/08/21 Karlos Murry MD [address] [place] [address] Gastroenterology 02/27/22 Apple Talavera MD [address] [place] [address] Primary Oncologist Medical Oncology 02/19/23 Sergey Tyson MD [address] [place] [address] Insurance Assigned Provider 02/29/24 Mena Mcwilliams RN [address] [place] [address] [email or web address] [facility] Hydrogenation Still Operator 11/13/23 12/11/23 documented as of this encounter Additional Source Comments The information contained in this document represents components of the legal health record. It is not the complete legal health record.[facility]
--- OUTSIDE RECORDS SUMMARY | 2025-11-10 09:29 | XMS_ITS | Encounter Summary ---
Author Organization [facility] Address [facility] [employer] [facility] [address] [place] [address] Phone Care Team Providers Care Gas Substation Operator Name Role Phone Karlos Lyons MD Primary Care Provider Karlos Lyons MD Unavailable [phone] Omar Rocha MD Unavailable [phone] Sagar Leung MD Unavailable Karlos Lyons MD Primary Care Provider + [phone] Yefri Hilliard MD Unavailable [phone] Karlos Murry MD Unavailable [phone] Sergey Tyson MD Primary Care Provider Apple Talavera MD Unavailable [phone] Sergey Tyson MD Unavailable Mena Mcwilliams RN Unavailable [phone] Encounter Details Date Type Department Care Team (Late st Contact Info) Description 08/19/2018 Ancillary Orders [facility] Primary Care Clinic [address] [place] [address] Karlos Lyons MD [address] [place] [address] [email or web address] Breast screening Social History Tobacco [...] Description 12/03/2025 11:30 AM EST Office Visit [facility] Speech Therapy [address] [address] Sergey Tyson MD [address] [place] [address] [email or web address] Lorri Keenan, [facility]SENIOR SUPPORT ENGINEER 8 [place] [address] 12/10/2025 2:45 PM EST Office Visit [facility] Gastroenterology Clinic [address] [place] [address] Unknown, Unknown, Karlos Henning MD [address] [place] [address] 02/02/2026 10:00 AM EDT Office Visit [facility] Pulmonology, Allergy and Critical Care Medicine Clinic 10 [place] [address] Rj Leiva MD 30 [place] [address] [email or web address] 04/28/2026 8:00 AM EDT Office Visit [facility] Primary Care Clinic 40 [place] [address] Sergey Tyson MD [address] [place] [address] [email or web address] 05/20/2026 9:00 AM EDT Office Visit [facility] Cancer [place] Hematology Oncology Clinic at [address] [address] Apple Talavera MD [address] [place] [address] [email or web address] documented as of this encounter Visit Diagnoses Diagnosis Breast screening Breast screening, unspecified documented in this encounter Additional Health Concerns Infection Onset Date Last Indicated Resolved Time CoV-Risk 05/07/2022 05/07/2022 05/18/2022 1:24 AM EDT documented as of this encounter Care Teams Gas Substation Operator Relationship Specialty Start Date End Date Karlos Lyons MD [address] [place] [address] [email or web address] PCP - General Internal Medicine 07/14/14 05/07/21 Karlos Lyons MD [address] [place] [address] [email or web address] PCP - General Internal Medicine 05/08/21 05/09/22 Sergey Tyson MD [address] [place] [address] [email or web address] PCP - General Internal Medicine 05/10/22 Karlos Lyons MD [address] [place] [address] [email or web address] Insurance Assigned Provider 02/23/17 03/02/23 Omar Rocha MD [address] [place] [address] 101 [place] [address] [email or web address] 05/08/21 Sagar Leung MD [address] [place] [address] [address] [place] [address] Obstetrics and Gynecology 05/08/21 Yefri Hilliard MD [address] [place] [address] Endocrinology 05/08/21 Karlos Murry MD [address] [place] [address] Gastroenterology 02/27/22 Apple Talavera MD [address] [place] [address] Primary Oncologist Medical Oncology 02/19/23 Sergey Tyson MD [address] [place] [address] Insurance Assigned Provider 02/29/24 Mena Mcwilliams, RUSS [address] [place] [address] [email or web address] PHCM Cleaner Touch Up Worker 11/13/23 12/11/23 documented as of this encounter Additional Source Comments The information contained in this document represents components of the legal health record. It is not the complete legal health record.[facility]
--- OUTSIDE RECORDS SUMMARY | 2025-11-10 09:29 | XMS_ITS | Encounter Summary ---
Author Organization [facility] Address [facility] [employer] [facility] [address] [place] [address] Phone Care Team Providers Care Hem Inspector Name Role Phone Karlos Lyons MD Primary Care Provider Karlos Lyons MD Unavailable [phone] Omar Rocha MD Unavailable [phone] Sagar Leung MD Unavailable Karlos Lyons MD Primary Care Provider Yefri Hilliard MD Unavailable [phone] Karlos Murry MD Unavailable [phone] Sergey Tyson MD Primary Care Provider [phone] Apple Talavera MD Unavailable [phone] Sergey Tyson MD Unavailable Mena Mcwilliams RN Unavailable [phone] Encounter Details Date Type Department Care Team (Late st Contact Info) Description 09/14/2017 Ancillary Orders [facility] Cancer [place] Hematology Oncology Clinic at [facility] 30 [place] [address] Apple Talavera MD 30 [place] [address] Abnormal findings on diagnostic imaging of breast [...] Description 12/03/2025 11:30 AM EST Office Visit [facility] Speech Therapy Clinic [address] [place] [address] Sergey Tyson MD [address] [place] [address] Lorri Keenan, CCC-CLINICAL ADMISSIONS MANAGER 8 [place] [address] 12/10/2025 2:45 PM EST Office Visit [facility] Gastroenterology Clinic [address] [place] [address] Unknown, Unknown, Karlos Henning MD [address] [place] [address] 02/02/2026 10:00 AM EDT Office Visit [facility] Pulmonology, Allergy and Critical Care Medicine Clinic 10 [place] [address] Rj Leiva MD 30 [place] [address] [email or web address] 04/28/2026 8:00 AM EDT Office Visit [facility] Primary Care Clinic 40 [place] [address] Sergey Tyson MD 40 [place] [address] [email or web address] 05/20/2026 9:00 AM EDT Office Visit [facility] Cancer [place] Hematology Oncology Clinic at [address] [address] Apple Talavera MD [address] [place] [address] [email or web address] documented as of this encounter Visit Diagnoses Diagnosis Abnormal findings on diagnostic imaging of breast Other (abnormal) findings on radiological examination of breast documented in this encounter Additional Health Concerns Infection Onset Date Last Indicated Resolved Time CoV-Risk 05/07/2022 05/07/2022 05/18/2022 1:24 AM EDT documented as of this encounter Care Teams Hem Inspector Relationship Specialty Start Date End Date Karlos Lyons MD [address] [address] [email or web address] PCP - General Internal Medicine 07/14/14 05/07/21 Karlos Lyons MD [address] [place] [address] [email or web address] PCP - General Internal Medicine 05/08/21 05/09/22 Sergey Tyson MD 40 [place] [address] [email or web address] PCP - General Internal Medicine 05/10/22 Karlos Lyons MD [address] [place] [address] [email or web address] Insurance Assigned Provider 02/23/17 03/02/23 Omar Rocha MD [address] [place] [address] 101 [place] [address] [email or web address] Physical Medicine [email or web address] 05/08/21 Sagar Leung MD [address] [place] [address] [address] [place] [address] Obstetrics and Gynecology 05/08/21 Yefri Hilliard MD [address] [place] [address] Endocrinology 05/08/21 Karlos Murry MD [address] [place] [address] Gastroenterology 02/27/22 Apple Talavera MD [address] [place] [address] Primary Oncologist Medical Oncology 02/19/23 Sergey Tyson MD [address] [place] [address] Insurance Assigned Provider 02/29/24 Mena Mcwilliams RN [address] [place] [address] [email or web address] PHCM Car Tracer 11/13/23 12/11/23 documented as of this encounter Additional Source Comments The information contained in this document represents components of the legal health record. It is not the complete legal health record.[facility]
--- OUTSIDE RECORDS SUMMARY | 2025-11-10 09:29 | XMS_ITS | Encounter Summary ---
Author Organization [facility] Address [facility] [employer] [facility] [address] [place] [address] Phone Care Team Providers Care Raisin Separator Operator Name Role Phone Omar Rocha MD Unavailable [phone] Sagar Leung MD Unavailable Yefri Hilliard MD Unavailable [phone] Karlos Murry MD Unavailable [phone] Sergey Tyson MD Primary Care Provider Apple Talavera MD Unavailable [phone] Sergey Tyson MD Unavailable Encounter Details Date Type Department Care Team (Late st Contact Info) Description 11/09/2025 Ancillary Orders [facility],Outside Imaging 30 [place], [place] [phone] Unknown, Unknown, MD Social History Tobacco Use Types Packs/Day Years [...] Description 12/03/2025 11:30 AM EST Office Visit [facility] Speech Therapy [facility] 8 [place] [address] Sergey Tyson MD [address] [place] [address] Lorri Keenan, [facility] OUTREACH MANAGER 8 [place] [address] 12/10/2025 2:45 PM EST Office Visit [facility] Gastroenterology Clinic [address] [place] [address] Unknown, Unknown, Karlos Henning MD [address] [place] [address] 02/02/2026 10:00 AM EDT Office Visit [facility] Pulmonology, Allergy and Critical Care Medicine Clinic [address] [place] [address] Rj Leiva MD [address] [place] [address] [email or web address] 04/28/2026 8:00 AM EDT Office Visit [facility] Primary Care Clinic [address] [place] [address] [phone] Sergey Tyson MD [address] [place] [place] [email or web address] 05/20/2026 9:00 AM EDT Office Visit [facility] Cancer [place] Hematology Oncology Clinic at [address] [address] Apple Talavera MD 30 [place] [address] [email or web address] documented as of this encounter Results * CT Chest Outside [...] documented as of this encounter Care Teams Raisin Separator Operator Relationship Specialty Start Date End Date Sergey Tyson MD [address] [place] [place] [address] [email or web address] PCP - General Internal Medicine 05/10/22 Omar Rocha MD [email or web address] Physical Medicine [email or web address] Rehabilitation 05/08/21 Sagar Leung MD [address] [place] [address], [address] [place] [address] [email or web address] Obstetrics and Gynecology 05/08/21 Yefri Hilliard MD [address] [place] [address] Endocrinology 05/08/21 Karlos Murry MD [address] [place] [address] [email or web address] Gastroenterology 02/27/22 Apple Talavera MD [address] [place] [address] [email or web address] Primary Oncologist Medical Oncology 02/19/23 Sergey Tyson MD [address] [place] [place] [address] [email or web address] Insurance Assigned Provider 02/29/24 documented as of this encounter Additional Source Comments The information contained in this document represents components of the legal health record. It is not the complete legal health record.[facility]
--- OUTSIDE RECORDS SUMMARY | 2025-11-10 09:29 | XMS_ITS | Encounter Summary ---
Author Organization [facility] Address [address] [place] [address] 985 [place] [address] Phone Care Team Providers Care Dispute Resolution Analyst Name Role Phone Karlos Lyons MD Primary Care Provider Karlos Lyons MD Unavailable [phone] Omar Rocha MD Unavailable [phone] Sagar Leung MD Unavailable Karlos Lyons MD Primary Care Provider [phone] Yefri Hilliard MD Unavailable [phone] Karlos Murry MD Unavailable [phone] Sergey Tyson MD Primary Care Provider [phone] Apple Talavera MD Unavailable [phone] Sergey Tyson MD Unavailable Mena Mcwilliams RN Unavailable [phone] Reason for Referral * Outpatient Procedure - Closed Specialty Diagnoses / Procedures Referred By Jessica balbuena Referred To Contact Radiology Diagnoses Bilateral hand pain Complex regional pain syndrome type 1 of both upper extremities Procedures NM Bone Flow 3 Phase Omar Rocha MD Phone: tel: fax: mailto:[email or web address] Referral ID Status Reason Start Date Expiration Date Visits Re quested Visits Authorized [id number] Closed 04/17/2018 04/17/2019 1 1 Encounter Details Date Type Department Care Team (Late Contact Info) Description 04/17/2018 Ancillary Orders Virtual Department 30 [place] [address] Omar Rocha MD [address] [place] [address] [email or web address] Bilateral hand pain; Complex regional pain syndrome [...] Department Care Team (Late Contact Info) Description 12/03/2025 11:30 AM EST Office Visit [facility] Speech Therapy [facility] 8 [place] [address] Sergey Tyson MD [address] [place] [address] Lorri Keenan, [facility]-DESIGN CHIEF 8 [place] [address] 12/10/2025 2:45 PM EST Office Visit [facility] Gastroenterology Clinic 10 [place], [place] [phone] Unknown, Unknown, MD Murry, Karlos Martines MD [address] [phone] 02/02/2026 10:00 AM EDT Office Visit [facility] Pulmonology, Allergy and Critical Care Medicine Clinic [address] [place] [address] Rj Leiva MD [address] [place] [address] [email or web address] 04/28/2026 8:00 AM EDT Office Visit [facility] Primary Care Clinic 40 [place] [address] Sergey Tyson MD 40 [place] [address] 05/20/2026 9:00 AM EDT Office Visit [facility] Cancer [place] Hematology Oncology Clinic at [facility] 30 [place] [address] Apple Talavera MD [address] [place] [address] documented as of this encounter Results * [...] swelling POS - [id number] Omar Rocha MD [facility] [place] BONE SCAN Final Result documented in [...] documented as of this encounter Care Teams Dispute Resolution Analyst Relationship Specialty Start Date End Date Karlos Lyons MD [address] [address] [email or web address] PCP - General Internal Medicine 07/14/14 05/07/21 Karlos Lyons MD [address] [place] [address] [email or web address] PCP - General Internal Medicine 05/08/21 05/09/22 Sergey Tyson MD [address] [place] [address] [email or web address] PCP - General Internal Medicine 05/10/22 Karlos Lyons MD [address] [place] [address] [email or web address] Insurance Assigned Provider 02/23/17 03/02/23 Omar Rocha MD [address] [place] [address] [email or web address] 05/08/21 Sagar Leung MD [address] [place] [address], [address] [place] [address] [email or web address] Obstetrics and Gynecology 05/08/21 Yefri Hilliard MD [address] [place] [address] Endocrinology 05/08/21 Karlos Murry MD [address] [place] [address] Gastroenterology 02/27/22 Apple Talavera MD [address] [place] [email or web address] Primary Oncologist Medical Oncology 02/19/23 Sergey Tyson MD [address] [place] [address] Insurance Assigned Provider 02/29/24 Mena Mcwilliams, RN [address] [place] [address] [email or web address] [facility] Bill Of Materials Clerk 11/13/23 12/11/23 documented as of this encounter Additional Source Comments The information contained in this document represents components of the legal health record. It is not the complete legal health record.[facility]
--- OUTSIDE RECORDS SUMMARY | 2025-11-10 09:29 | XMS_ITS | Encounter Summary ---
Author Organization [facility] Address [address] [place] [address] Phone Care Team Providers Care Low Voltage Electrician Name Role Phone Karlos Lyons MD Primary Care Provider Karlos Lyons MD Unavailable [phone] Omar Rocha MD Unavailable [phone] Sagar Leung MD Unavailable Karlos Lyons MD Primary Care Provider + [phone] Yefri Hilliard MD Unavailable [phone] Karlos Murry MD Unavailable [phone] Sergey Tyson MD Primary Care Provider [phone] Apple Talavera MD Unavailable [phone] Sergey Tyson MD Unavailable Mena Mcwilliams RN Unavailable [phone] Reason for Referral * Outpatient Procedure - Closed Specialty Diagnoses / Procedures Referred By Jessica balbuena Referred To Contact Radiology Diagnoses Dyspepsia Procedures NM Gastric Emptying Karlos Murry MD Phone: tel: fax: mailto: Referral ID Status Reason Start Date Expiration Date Visits Re quested Visits Authorized [id number] Closed 01/09/2018 01/09/2019 1 1 Encounter Details Date Type Department Care Team (Late st Contact Info) Description 01/09/2018 Ancillary Orders Virtual Department 30 [place] [address] Karlos Murry MD [address] [address] Dyspepsia Social History Tobacco Use Types Packs/Day [...] Description 12/03/2025 11:30 AM EST Office Visit [facility] Speech Therapy [address] [address] Sergey Tyson MD [address] [place] [address] Lorri Keenan, CCC-PSYCHIATRY RESIDENT 8 [place] [address] 12/10/2025 2:45 PM EST Office Visit [facility] Gastroenterology Clinic 10 [place] [address] Unknown, Unknown, Karlos Henning MD [address] [address] 02/02/2026 10:00 AM EDT Office Visit [facility] Pulmonology, Allergy and Critical Care Medicine Clinic 10 [address] [facility] [place] [address] Rj Leiva MD [address] [place] [address] [email or web address] 04/28/2026 8:00 AM EDT Office Visit [facility] Primary Care Clinic 40 [place] [address] Sergey Tyson MD 40 [place] [address] 05/20/2026 9:00 AM EDT Office Visit [facility] Cancer [place] Hematology Oncology Clinic at [facility] 30 [place] [address] Apple Talavera MD [address] [place] [email or web address] documented as of this encounter Results * [...] eggs. POS [id number] Karlos Murry MD IMG [place] ABDOMEN Final Resu lt documented in this encounter Visit Diagnoses Diagnosis Dyspepsia Dyspepsia and other specified disorders of function of stomach Dyspepsia Dyspepsia and other specified disorders of function of stomach documented in this encounter Additional Health Concerns Infection Onset Date Last Indicated Resolved Time CoV-Risk 05/07/2022 05/07/2022 05/18/2022 1:24 AM EDT documented as of this encounter Care Teams Low Voltage Electrician Relationship Specialty Start Date End Date Karlos Lyons MD [address] [place] [address] [email or web address] PCP - General Internal Medicine 07/14/14 05/07/21 Karlos Lyons MD [address] [place] [address] [email or web address] PCP - General Internal Medicine 05/08/21 05/09/22 Sergey Tyson MD [address] [place] [address] [email or web address] PCP - General Internal Medicine 05/10/22 Karlos Lyons MD [address] [place] [address] [email or web address] Insurance Assigned Provider 02/23/17 03/02/23 Omar Rocha MD [address] [place] [address] [email or web address] Physical Medicine and Rehabilitation 05/08/21 Sagar Leung MD [address] [place] [address], [address] [place] [address] Obstetrics and Gynecology 05/08/21 Yefri Hilliard MD [address] [place] [address] Endocrinology 05/08/21 Karlos Murry MD [address] [place] [address] Gastroenterology 02/27/22 Apple Talavera MD [address] [place] [address] Primary Oncologist Medical Oncology 02/19/23 Sergey Tyson MD [address] [place] [address] Insurance Assigned Provider 02/29/24 Mena Mcwilliams, RUSS [address] [place] [address] [email or web address] PHCM Director Of Transportation 11/13/23 12/11/23 documented as of this encounter Additional Source Comments The information contained in this document represents components of the legal health record. It is not the complete legal health record.[facility]
--- OUTSIDE RECORDS SUMMARY | 2025-11-10 09:29 | XMS_ITS | Encounter Summary ---
Author Organization [facility] Address [address] [place] [address] Phone Care Team Providers Care Concrete Tester Name Role Phone Karlos Lyons MD Primary Care Provider Karlos Lyons MD Unavailable [phone] Omar Rocha MD Unavailable [phone] Sagar Leung MD Unavailable Karlos Lyons MD Primary Care Provider + [phone] Yefri Hilliard MD Unavailable [phone] Karlos Murry MD Unavailable [phone] Sergey Tyson MD Primary Care Provider [phone] Apple Talavrea MD Unavailable [phone] Sergey Tyson MD Unavailable Mena Mcwilliams RN Unavailable [phone] Reason for Referral * Occupational Therapy (Routine) - Closed Specialty Diagnoses / Procedures Referred By Jessica balbuena Referred To Contact Occupational Therapy Diagnoses Encounter for rehabilitation System, Provider Not In, PhD [address] [place] [address] [place] [address] Phone: tel: Referral ID Status Reason Start Date Expiration Date Visits Re quested Visits Authorized [id number] Closed 02/14/2018 11/24/2018 99 99 Encounter Details Date Type Department Care Team (Latest Contact Info) Description 02/14/2018 Transcribe Orders [facility] Physical Therapy Clinic [address] [place] [address] Theresa Peterson [address] [place] [address] [email or web address] Encounter for rehabilitation (Primary Dx) Social History [...] Description 12/03/2025 11:30 AM EST Office Visit [facility] Speech Therapy [address] [address] Sergey Tyson MD [address] [place] [address] Lorri Keenan, CCC-DIRECTOR TRADING [address] [place] [address] 12/10/2025 2:45 PM EST Office Visit [facility] Gastroenterology Clinic [address] [place] [address] Unknown, Unknown, MD uMrry, Kalros Martines MD [address] [place] [address] 02/02/2026 10:00 AM EDT Office Visit [facility] Pulmonology, Allergy and Critical Care Medicine Clinic 10 [place] [address] Rj Leiva MD [address] [place] [address] [email or web address] 04/28/2026 8:00 AM EDT Office Visit [facility] Primary Care Clinic 40 [place] [address] Sergey Tyson MD 40 [place] [address] [email or web address] 05/20/2026 9:00 AM EDT Office Visit [facility] Cancer [place] Hematology Oncology Clinic at [address] [address] Apple Talavera MD [address] [place] [email or web address] Scheduled Referrals Name Type Priority Associated Diagnoses Orde r Schedule Ambulatory referral to [facility] Occupational Therapy Outpatient Referral Routine Encounter for rehabilitation Ordered: 02/14/2018 documented as of this encounter Visit Diagnoses Diagnosis Encounter for rehabilitation- Primary documented in this encounter Additional Health Concerns Infection Onset Date Last Indicated Resolved Time CoV-Risk 05/07/2022 05/07/2022 05/18/2022 1:24 AM EDT documented as of this encounter Care Teams Concrete Tester Relationship Specialty Start Date End Date Karlos Lyons MD [address] [place] [address] [email or web address] PCP - General Internal Medicine 07/14/14 05/07/21 Karlos Lyons MD [address] [place] [address] [email or web address] PCP - General Internal Medicine 05/08/21 05/09/22 Sergey Tyson MD 40 [place] [address] [email or web address] PCP - General Internal Medicine 05/10/22 Karlos Lyons MD [address] [place] [address] [email or web address] Insurance Assigned Provider 02/23/17 03/02/23 Omar Rocha MD [address] [place] [address] [email or web address] Physical Medicine and Rehabilitation 05/08/21 Sagar Leung MD [address] [place] [address] [email or web address] Obstetrics and Gynecology 05/08/21 Yefri Hilliard MD [address] [place] [address] Endocrinology 05/08/21 Karlos Murry MD [address] [place] [address] [email or web address] Gastroenterology 02/27/22 Apple Talavera MD [address] [place] [email or web address] Primary Oncologist Medical Oncology 02/19/23 Sergey Tyson MD 40 [place] [address] [email or web address] Insurance Assigned Provider 02/29/24 Mena Mcwilliams RN [address] [place] [address] [email or web address] [facility] News Gathering Technician 11/13/23 12/11/23 documented as of this encounter Additional Source Comments The information contained in this document represents components of the legal health record. It is not the complete legal health record.[facility]
--- OUTSIDE RECORDS SUMMARY | 2025-11-10 09:31 | XMS_ITS | Encounter Summary ---
Author Organization [facility] Address [address] [place] [address] Phone Care Team Providers Care Propeller Mechanic Name Role Phone Karlos Lyons MD Primary Care Provider Karlos Lyons MD Unavailable [phone] Omar Rocha MD Unavailable [phone] Sagar Leung MD Unavailable Karlos Lyons MD Primary Care Provider + [phone] Yefri Hilliard MD Unavailable [phone] Karlos Murry MD Unavailable [phone] Sergey Tyson MD Primary Care Provider Apple Talavera MD Unavailable [phone] Sergey Tyson MD Unavailable Mena Mcwilliasm RN Unavailable [phone] Encounter Details Date Type Department Care Team (Latest Contact Info) Description 10/30/2018 Transcribe Orders [address] [place] [address] Karlos Murry MD [address] [place] [address] Nausea (Primary Dx) Social History Tobacco Use [...] Description 12/03/2025 11:30 AM EST Office Visit [facility] Speech Therapy [address] [address] Sergey Tyson MD [address] [place] [address] Lorri Keenan, [facility] [address] [place] [address] 12/10/2025 2:45 PM EST Office Visit [facility] Gastroenterology Clinic 10 [place] [address] Unknown, Unknown, Karlos Henning MD [address] [place] [address] 02/02/2026 10:00 AM EDT Office Visit [facility] Pulmonology, Allergy and Critical Care Medicine Clinic 10 [place] [address] Rj Leiva MD 30 [place] [address] [email or web address] 04/28/2026 8:00 AM EDT Office Visit [facility] Primary Care Clinic 40 [place] [address] Sergey Tyson MD 40 [place] [address] [email or web address] 05/20/2026 9:00 AM EDT Office Visit [facility] Hematology Oncology Clinic at [address] [address] Apple Talavera MD [address] [place] [address] [email or web address] documented as of this encounter Results * Stool fat/fiber exam (10/29/2018 8:00 PM EST) FATTY ACID NORMAL NORMAL [facility] Neutral Fat, stool NORMAL NORMAL [facility] Stool (Stool) 10/29/2018 8:0 0 PM EST 10/30/2018 11:55 AM EST Karlos Murry MD BODY FLUIDS AND STOOLS ORD ERABLES Final Result [address] [address] documented in this encounter Visit Diagnoses Diagnosis Nausea- Primary Nausea alone documented in this encounter Additional Health Concerns Infection Onset Date Last Indicated Resolved Time CoV-Risk 05/07/2022 05/07/2022 05/18/2022 1:24 AM EDT Assessment Noted Time PHQ-2 Depression Total Score: 0 10/20/20 18 10:00 AM EST documented as of this encounter Care Teams Propeller Mechanic Relationship Specialty Start Date End Date Karlos Lyons MD [address] [place] [address] [email or web address] PCP - General Internal Medicine 07/14/14 05/07/21 Karlos Lyons MD [address] [place] [address] [email or web address] PCP - General Internal Medicine 05/08/21 05/09/22 Sergey Tyson MD [address] [place] [address] [email or web address] PCP - General Internal Medicine 05/10/22 Karlos Lyons MD [address] [place] [address] [email or web address] Insurance Assigned Provider 02/23/17 03/02/23 Omar Rocha MD [address] [place] [address] [email or web address] Physical Medicine and Rehabilitation 05/08/21 Sagar Leung MD [address] [place] [address] [email or web address] Obstetrics and Gynecology 05/08/21 Yefri Hilliard MD [address] [place] [address] Endocrinology 05/08/21 Karlos Murry MD [address] [place] [address] [email or web address] Gastroenterology 02/27/22 Apple Talavera MD [address] [place] [address] [email or web address] Primary Oncologist Medical Oncology 02/19/23 Sergey Tyson MD [address] [place] [address] [email or web address] Insurance Assigned Provider 02/29/24 Mena Mcwilliams, RN [address] [place] [address] [email or web address] Veneer Joiner 11/13/23 12/11/23 documented as of this encounter Additional Source Comments The information contained in this document represents components of the legal health record. It is not the complete legal health record.[facility]
--- OUTSIDE RECORDS SUMMARY | 2025-11-10 09:31 | XMS_ITS | Clinical Summary ---
Author Organization [facility] Address [address] [place] [address] Phone Care Team Providers Care Scruff Worker Name Role Phone Sergey Tyson MD Primary Care Provider [phone] Social History Tobacco Use Types Packs/Day Years [...] 75+ series) 2025 COVID-19 Vaccine (1 - 2024-2 6 season) 2025 Influenza Vaccine (#1) 2025 HIB [...] to complete this topic Insurance MEDICARE [facility] Care Teams Scruff Worker Relationship Specialty Start Date End Date Sergey Tyson MD [address] [place] [address] PCP - General Internal Medicine 12/24/24
--- OUTSIDE RECORDS SUMMARY | 2025-11-10 09:31 | XMS_ITS | Encounter Summary ---
Author Organization [facility] Address [address] [place] [address] [address] [place] [address] Phone Care Team Providers Care Director Professional Services Name Role Phone Karlos Lyons MD Primary Care Provider Karlos Lyons MD Unavailable [phone] Omar Rocha MD Unavailable [phone] Sagar Leung MD Unavailable Karlos Lyons MD Primary Care Provider + [phone] Yefri Hilliard MD Unavailable [phone] Karlos Murry MD Unavailable [phone] Sergey Tyson MD Primary Care Provider Apple Talavera MD Unavailable [phone] Sergey Tyson MD Unavailable Mena Mcwilliams RN Unavailable [phone] Encounter Details Date Type Department Care Team (Late st Contact Info) Description 03/16/2019 Procedure Pass [facility] [address] [place] [address] Social History Tobacco Use Types [...] Description 12/03/2025 11:30 AM EST Office Visit [facility] Speech Therapy [facility] 8 [place] [address] Sergey Tyson MD [address] [place] [address] [email or web address] Lorri Keenan, CCC-ASSIGNMENT EDITOR [address] [place] [address] 12/10/2025 2:45 PM EST Office Visit [facility] Gastroenterology Clinic [address] [place] [address] Unknown, Unknown, Karlos Henning MD [address] [place] [address] 02/02/2026 10:00 AM EDT Office Visit [facility] Pulmonology, Allergy and Critical Care Medicine Clinic [address] [place] [address] Rj Leiva MD [address] [place] [address] [email or web address] 04/28/2026 8:00 AM EDT Office Visit [facility] Primary Care Clinic [address] [place] [address] Sergey Tyson MD [address] [place] [address] [phone] [email or web address] 05/20/2026 9:00 AM EDT Office Visit [facility] [place] Hematology Oncology Clinic at [address] [address] Apple Talavera MD 30 [place] [address] [email or web address] documented as of this encounter Visit Diagnoses Not on filedocumented in this encounter Additional Health Concerns Infection Onset Date Last Indicated Resolved Time CoV-Risk 05/07/2022 05/07/2022 05/18/2022 1:24 AM EDT Assessment Noted Time PHQ-2 Depression Total Score: 0 10/20/20 18 10:00 AM EST documented as of this encounter Care Teams Director Professional Services Relationship Specialty Start Date End Date Karlos Lyons MD [address] [place] [address] [email or web address] PCP - General Internal Medicine 07/14/14 05/07/21 Karlos Lyons MD [address] [place] [address] [email or web address] PCP - General Internal Medicine 05/08/21 05/09/22 Sergey Tyson MD [address] [place] [address] [email or web address] PCP - General Internal Medicine 05/10/22 Karlos Lyons MD [address] [place] [address] [email or web address] Insurance Assigned Provider 02/23/17 03/02/23 Omar Rocha MD [address] [place] [address] 101 [place] [address] [email or web address] Physical Medicine and Rehabilitation 05/08/21 Sagar Leung MD [address] [place] [address], [address] [place] [address] Obstetrics and Gynecology 05/08/21 Yefri Hilliard MD [address] [place] [address] Endocrinology 05/08/21 Karlos Murry MD [address] [place] [address] 2 [place] [address] Gastroenterology 02/27/22 Apple Talavera MD [address] [place] [address] Primary Oncologist Medical Oncology 02/19/23 Sergey Tyson MD [address] [place] [address] Insurance Assigned Provider 02/29/24 Mena Mcwilliams, RN 10 [place] [address] [email or web address] [facility] Clinic Receptionist 11/13/23 12/11/23 documented as of this encounter Additional Source Comments The information contained in this document represents components of the legal health record. It is not the complete legal health record.[facility]
--- OUTSIDE RECORDS SUMMARY | 2025-11-10 09:31 | XMS_ITS | Encounter Summary ---
Author Organization [facility] Address [facility] [employer] [facility] [address] [place] [address] Phone Care Team Providers Care Medical Claims Processor Name Role Phone Omar Rocha MD Unavailable Sagar Leung MD Unavailable Yefri Hilliard MD Unavailable Karlos Murry MD Unavailable [phone] Sergey Tyson MD Primary Care Provider [phone] Apple Talavera MD Unavailable [phone] Sergey Tyson MD Unavailable Encounter Details Date Type Department Care Team (Late st Contact Info) Description 03/18/2024 Procedure Pass [facility] [address] [place] [address] Social History Tobacco Use Types Packs/Day Years [...] high school, GED, job training, learning the American language, technical skills, or developing parenting skills)? [...] Description 12/03/2025 11:30 AM EST Office Visit [facility] [address] [place] [address] Sergey Tyson MD 40 [place] [address] Lorri Keenan, [facility] 8 [place] [address] 12/10/2025 2:45 PM EST Office Visit [facility] Gastroenterology Clinic 10 [place] [address] Unknown, Unknown, MD Murry, Karlos Martines MD [address] [place] [address] 02/02/2026 10:00 AM EDT Office Visit [facility] Pulmonology, Allergy and Critical Care Medicine Clinic 10 [facility] [place] [address] Rj Leiva MD [address] [place] [address] [email or web address] 04/28/2026 8:00 AM EDT Office Visit [facility] Primary Care Clinic [address] [place] [address] Sergey Tyson MD [address] [place] [address] 05/20/2026 9:00 AM EDT Office Visit [facility] Cancer [place] Hematology Oncology Clinic at [facility] 30 [place] [address] Apple Talavera MD [address] [place] [address] documented as of this encounter Visit Diagnoses Not on filedocumented in this encounter Additional Health Concerns Assessment Noted Time PHQ-9 Depression Total Score: 3 09/11/20 24 9:24 AM EDT PHQ-2 Depression Total Score: 0 04/07/20 25 12:34 PM EDT documented as of this encounter Care Teams Medical Claims Processor Relationship Specialty Start Date End Date Sergey Tyson MD 40 [place] [address] PCP - General Internal Medicine 05/10/22 Omar Rocha MD [email or web address] Medicine [email or web address] 05/08/21 Sagar Leung MD [address] [place] [address] 102 [place] [address] Obstetrics and Gynecology 05/08/21 Yefri Hilliard MD [address] [place] [address] Endocrinology 05/08/21 Karlos Murry MD [address] [place] [address] [email or web address] Gastroenterology 02/27/22 Apple Talavera MD [address] [place] [address] Primary Oncologist Medical Oncology 02/19/23 Sergey Tyson MD 40 [place] [address] [email or web address] Insurance Assigned Provider 02/29/24 documented as of this encounter Additional Source Comments The information contained in this document represents components of the legal health record. It is not the complete legal health record.[facility]
--- OUTSIDE RECORDS SUMMARY | 2025-11-10 09:31 | XMS_ITS | Encounter Summary ---
Author Organization [facility] Address [facility] [address] [place] [address] Phone Care Team Providers Care Cylinder Die Machine Operator Name Role Phone Omar Rocha MD Unavailable Sagar Leung MD Unavailable Yefri Hilliard MD Unavailable Karlos Murry MD Unavailable [phone] Sergey Tyson MD Primary Care Provider Apple Talavera MD Unavailable Sergey Tyson MD Unavailable Encounter Details Date Type Department Care Team (Late st Contact Info) Description 05/12/2025 Ancillary Orders [facility], [facility]- [address] [id number] Apple Talavera MD [address] [place] [address] [phone] [email or web address] Abnormal mammogram (Primary Dx) Social History Tobacco [...] Description 12/03/2025 11:30 AM EST Office Visit [facility] [address] [place] [address] Sergey Tyson MD [address] [place] [phone] Lorri Keenan, [facility] [address] [place] [address] 12/10/2025 2:45 PM EST Office Visit [facility] [address] [place] [phone] Unknown, Unknown, MD Murry, Karlos Martines MD [address] [place] [phone] 02/02/2026 10:00 AM EDT Office Visit [facility] [address] [place] [phone] Rj Leiva MD [address] [place] [phone] [email or web address] 04/28/2026 8:00 AM EDT Office Visit [facility] [address] [place] [address] Sergey Tyson MD [address] [place] [address] [phone] 05/20/2026 9:00 AM EDT Office Visit [facility] at [address] [address] Apple Talavera MD [address] [place] [address] [email or web address] documented as of this encounter Results * [...] at time ofexamination. us Apple Talavera MD IM MG EXAMS Final Result documented in this [...] documented as of this encounter Care Teams Cylinder Die Machine Operator Relationship Specialty Start Date End Date Sergey Tyson MD [address] [place] [address] PCP - General Internal Medicine 05/10/22 Omar Rocha MD [email or web address] Physical Medicine and Rehabilitation 05/08/21 Sagar Leung MD [address] [place] [phone] [email or web address] Obstetrics and Gynecology 05/08/21 Yefri Hilliard MD [address] [place] [phone] Endocrinology 05/08/21 Karlos Murry MD [address] [place] [phone] [email or web address] Gastroenterology 02/27/22 Apple Talavera MD [address] [place] [phone] Primary Oncologist Medical Oncology 02/19/23 Sergey Tyson MD [address] [place] [address] [email or web address] Insurance Assigned Provider 02/29/24 documented as of this encounter Additional Source Comments The information contained in this document represents components of the legal health record. It is not the complete legal health record.[facility]
== END 2025-11-10 10:02 | disposition home or self-care (01) ==
LOC: HO.HGI 08:53
PROVIDERS: PCP Internal Medicine; Visit Provider Nurse Practitioner
DX: K58.9 Irritable bowel syndrome, unspecified (principal); R19.7 Diarrhea, unspecified
CPT/HCPCS: 99213

== ENCOUNTER → 2025-11-10 08:53 | Outpatient (BNVA) | payer MEDICARE, BC, SELFPAY | PROVIDERS: PCP Internal Medicine; Visit Provider Nurse Practitioner | DX: R19.01 Right upper quadrant abdominal swelling, mass and lump (principal); K58.9 Irritable bowel syndrome, unspecified; R19.7 Diarrhea, unspecified; J32.9 Chronic sinusitis, unspecified; R71.8 Other abnormality of red blood cells | CPT/HCPCS: 99212 ==